=== PATIENT | male | born 1945 | race Caucasian/White ===

== ENCOUNTER → 2016-06-14 | Outpatient (CLI) | payer MEDICARE ==
[~2016-06-14] MED LIST: /CIPR75TA OR; /DULO30CA OR; ASPI1TAB PO; CLON0.5T; CLON0.5T OR; FISH1000 OR; GABA600T3; GABA600T3 OR; LYRI75CA PO; MULTIVIT PO; OXYC15TA50 OR; OXYC20TA2 OR; OXYC30TA84 PO; OXYC40TA12 PO; OXYC40TA19 OR; VIT D 2000 PO; VITA-130 PO; VITA100037 PO; VITA100T OR; VITA500T OR; vitamin E
--- NOTE | 2016-06-16 08:38 | REP ---
MRI BILATERAL ANKLE WITHOUT CONTRAST: History: Bilateral ankle pressure ulcers, ulcer laterally on the right and medially on the left. Comparison right ankle MRI study is from October 21, 2011. Technique: Bilateral ankle MRI study is acquired in the usual fashion with axial, coronal and sagittal imaging planes. T1, proton density and T2-weighted scans were obtained in the usual fashion with and without fat saturation. Right ankle MRI findings: There is mild increased signal intensity in the distal Achilles tendon. No other tendinopathy is appreciated. There is a focal skin deficit with underlying granulation tissue and edema over the lateral malleolus of the right ankle consistent with the history of skin ulcer. There is T2 hyperintense marrow edema and some subtle T1 hypointense marrow change in the distal fibula underlying the ulcer. I do not see cortical disruption or david erosion. It is difficult to exclude early osteomyelitis. The prior study from 2008 showed more prominent marrow edema and some bony hypertrophy. Cortical and medullary bone signal intensity is otherwise normal today. There is no soft tissue abscess collection visible. No ankle or intertarsal joint effusion is appreciated. Impression: Focal area of marrow edema in the distal fibula. No david cortical erosion seen. No abscess seen. There is a focal defect in the overlying skin and some soft tissue swelling and granulation tissue is seen overlying the distal fibula consistent with the ulcer. Difficult to exclude early osteomyelitis. Left ankle MRI findings: There is a skin defect over the medial malleolus on the left with underlying granulation tissue. No abscess cavity is appreciated. There is a tendon sheath effusion distal to the medial malleolus and the tibialis posterior tendon sheath. No tendon discontinuity is seen. There is diffuse edema in the subcutaneous fat particularly medially in the distal calf above the ankle. Some edema is seen in the pre-Achilles fat. There is a small ankle joint effusion. There is abnormal marrow signal of the medial malleolus including decreased T1 and increased T2 signal. No cortical disruption is seen. No abscess is seen. Some periosteal reaction is suspected however on T2-weighted axial scans. This is suggestive of early osteomyelitis of the medial malleolus. Exam is otherwise unremarkable. Impression: Abnormal marrow signal intensity in the medial malleolus underlying the ulcer on the left side. Periosteal reaction is seen. Early osteomyelitis is suspected. Signed by Zia Padilla MD 06/16/2016 01:34 P
== END ==
LOC: M RAD 14:20
PROVIDERS: ATTEND Surgery
DX: L89.523 Pressure ulcer of left ankle, stage 3 (principal); L89.513 Pressure ulcer of right ankle, stage 3

== ENCOUNTER → 2016-07-11 | Outpatient (REF) | payer MEDICARE, BC ==
[2016-07-11 15:38] LABS: BLOOD UREA NITROGEN 16 MG/DL (7-18); CREATININE FOR GFR 0.68 MG/DL (0.70-1.30); GLOMERULAR FILTRATION RATE > 60.0 (>42)
== END ==
LOC: M SHH 15:05
PROVIDERS: ATTEND Surgery
DX: L89.513 Pressure ulcer of right ankle, stage 3 (principal)

== ENCOUNTER → 2016-07-14 | Outpatient (CLI) | payer MEDICARE, BC ==
--- NOTE | 2016-07-24 02:24 | ECWPNPC ---
PATIENT NAME: KAI PAREKH : 1945 GENDER: MALE VISIT DATE: 07/14/2016 DISCHARGE DATE: 07/14/16 1456 VISIT LOCKED DATE TIME: PHYSICIAN: JARED MÉNDEZ RESOURCE: JARED MÉNDEZ REASON FOR APPOINTMENT 1. CHRONIC PAIN HISTORY OF PRESENT ILLNESS HISTORY OF PRESENT ILLNESS: CONTINUES W C/O RIGHT LEG PAIN AND PARATHESIA.ALSO SUFFERS FROM CHRONIC LOW BACK PAIN. FINDS CURRENT MEDICINE HELPFUL AT REDUCING PAIN AND PARATHESIA.DENIES SIDE EFFECTS W MEDICATION.PAIN AGGREVATED W INCREASED ACTIVITY.VAS 7/10. PAIN THE PATIENT DESCRIBES THE PAIN... THE PATIENT DESCRIBES THE PAIN... THE PATIENT DESCRIBES THE PAIN... THE PATIENT DESCRIBES THE PAIN... SEVERITY - PAIN SCORE OF9/10 QUALITYACHING , BURNING, SORE DURATIONMAINLY DURING THE DAY, INTERMITTENT, AWAKENS FROM SLEEEP THE PATIENT DESCRIBES THE PAIN... FALL RISK SCREENING: SCREENING :NO FALLS IN THE PAST YEAR CURRENT MEDICATIONS TAKING VITAMIN B-12 100 MCG TABLET 1 TABLET ORALLY ONCE A DAY TAKING FISH OIL 1000 MG CAPSULE 1 CAPSULE ORALLY ONCE A DAY TAKING MULTIVITAMINS CAPSULE 1 CAP ORALLY DAILY TAKING ADVANCE PLUS COUDE 16FR/40CM - KIT DIRECTED TRANSURETHRAL TID TAKING OXYCODONE HCL ER 30 MG TABLET EXTENDED RELEASE 12 HOUR 1 TABLET ORALLY 4-6 TIMES DAILY NEEDED TAKING LYRICA 150 MG CAPSULE 1 CAPSULE ORALLY TWICE A DAY MDD=2 TAKING OXYCODONE HCL 30 MG TABLET 1 TABLET ORALLY EVERY 4- 6 PRN MDD=4 TAKING CLONAZEPAM 0.5 MG TABLET 1 TABLET ORALLY TID MDD3 TAKING NEURONTIN 600 MG TABLET PAIN CLINIC ORALLY THREE TIMES A DAY TAKING OXYCONTIN 60 MG TABLET EXTENDED RELEASE 12 HOUR 1 TABLET ORALLY EVERY 12 HOURS/MMD#2 NOT-TAKING OXYCODONE HCL ER 60 MG TABLET ER 12 HOUR ABUSE-DETERRENT 1 TABLET ORALLY EVERY 12 HRS MDD=2 CHRONIC PAIN NOT-TAKING CUSTOM DO NOT USE OXYCODONE 30 MG TABLET 1 TABLET ORALLY/MMD#4 NEEDED EVERY 6 HOURS NOT-TAKING LYRICA 75 MG CAPSULE 1 CAPSULE ORALLY TWICE A DAY/MMD#2 NOT-TAKING BACTRIM DS 800-160 MG TABLET 1 TABLET ORALLY ONCE A DAY UNKNOWN OXYCODONE HCL ER 60 MG TABLET ER 12 HOUR ABUSE-DETERRENT 1 TABLET ORALLY EVERY 12 HRS MDD 2 UNKNOWN STRETCH GAUZE BANDAGE 1 MISCELLANEOUS 4 INCH X 75 INCH CURITY TOPICALLY DAILY MEDICATION LIST REVIEWED AND RECONCILED WITH THE PATIENT PAST MEDICAL HISTORY CHRONIC OSTEOMYELITIS OF DISTAL FIBULA HX OF PRESSURE ULCER RIGHT LATERAL MALLEOLUS CHRONIC BACK PAIN NEUROPATHIC CHARCOT FOOT HX MRSA RIGHT FOOT URINARY RETENTION FROM BACK SURGURY CHRONIC NEUROPATHY WITH WITH CHRONICLOWER EXTREMITY WEAKNESS BACK SURGERY X6 SPINAL CORD TUMOR ALLERGIES ZYVOX: CONFUSION: SIDE EFFECTS SOCIAL HISTORY GENERAL: TOBACCO USE ARE YOU A:NONSMOKER LEARNING BARRIERS / SPECIAL NEEDS ORIENTED TO PLAN OF CARE: PATIENT, PAIN MANAGEMENT PATIENT, ORIENTED TO PLAN OF CARE: PATIENT, PAIN MANAGEMENT PATIENT. NEW PATIENT PAIN DIARY TODAY'S VISITNOTES FROM 0-10, WHAT LEVEL IS YOUR PAIN TODAY?0 PAIN CLINIC PFS, CLERGY, PUBLIC HEALTH REFERRALS PFS REFERRAL NEEDED?NO CLERGY REFERRAL NEEDED?NO PUBLIC HEALTH REFERRAL NEEDED?NO WAS THE PROVIDER NOTIFIED OF ANY PERTINENT INFO?NO PFS REFERRAL NEEDED?NO CLERGY REFERRAL NEEDED?NO PUBLIC HEALTH REFERRAL NEEDED?NO WAS THE PROVIDER NOTIFIED OF ANY PERTINENT INFO?NO REVIEW OF SYSTEMS CONSTITUTIONAL: ANY CHANGE IN YOUR MEDICAL CONDITION? NO . CHILLS NO . FEVER NO . INFECTION: DO YOU HAVE NEW INFECTIONS? NO . DO YOU HAVE HISTORY OF MRSA? YES, RIGHT FOOT APPROX 4 YRS AGO . MUSCULOSKELETAL: ANY NEW PATTERNS OF PAIN OR NUMBNESS? NO . GASTROENTEROLOGY: ANY NEW CHANGE IN BOWEL CONTROL? NO . GENITOURINARY: ANY NEW CHANGE IN BLADDER CONTROL? NO,STRAIGHT CATHS HIMSELF . IS THERE A CHANCE YOU COULD BE ? NO . HEMATOLOGY/LYMPH: DO YOU TAKE ANY BLOOD THINNERS? (FOR EXAMPLE- COUMADIN, PLAVIX, AGGRENOX, PLATEL, PRADAXA, OR XARELTO) NO . WHEN WAS YOUR LAST DOSE? DATE: TIME: . NEUROLOGY: HAVE YOU FALLEN IN THE PAST 6 MONTHS? NO . ANY NEW EXTREMITY NUMBNESS OR WEAKNESS? NO . CARDIOLOGY: DO YOU HAVE A PACEMAKER OR DEFIBRILLATOR? NO . RESPIRATORY: HAVE YOU BEEN SICK IN THE PAST WEEK? NO . FEVER NO . FLU LIKE SYMPTOMS? NO . COUGH NO . INTEGUMENTARY: DO YOU HAVE ANY RASHES OR OPEN SORES? YES, SORES BOTH ANKLES--SEEING DR. GASPAR . ALLERGIC/IMMUNO: ARE YOU ALLERGIC TO SHELLFISH OR IV DYE? NO . ANY NEW ALLERGIES? NO . PSYCHIATRIC: DO YOU HAVE THOUGHTS OF HURTING YOURSELF OR SOMEONE ELSE? NO . ARE YOU ABUSED, NEGLECTED, OR IN AN UNSAFE ENVIRONMENT? NO . ENDOCRINOLOGY: ARE YOU DIABETIC? NO . OTHER: DO YOU NEED ANY PRESCRIPTIONS? NO . IF YES, PLEASE LIST: ____ . ANY NEW PROBLEMS WITH YOUR MEDICATIONS? NO . WHEN DID YOU LAST EAT? ____ . WHEN DID YOU LAST DRINK? ____ . WHAT DID YOU LAST DRINK? ____ . NAME OF PERSON DRIVING YOU HOME? ____ . DO YOU HAVE ANY OTHER QUESTIONS OR CONCERNS NO . REVIEWED BY: PROVIDER: JARED GARCIA . VITAL SIGNS WT 202 LBS, HT 74 IN, BMI 25.93 INDEX, BP 141/74 MM HG, HR 66 /MIN, RR 16 /MIN, TEMP 97.1 F, OXYGEN SAT % 97%, NA INITIALS SC14:22, REVIEWED BY: AD. EXAMINATION GENERAL EXAMINATION: LUNGS:LUNG SOUNDS ARE CLEAR. HEART:HEART RATE REGULAR. MUSCULOSKELETAL:*, MUSCLE STRENGTH TESTING 0/5 RIGHT LOWER EXT.3/5 LEFT . DECREASED SENSATION LIGHT TOUCH R>L LOWER EXT.. ASSESSMENTS POST LAMINECTOMY SYNDROME - M96.1 (PRIMARY) CHRONIC PRESCRIPTION OPIATE USE - Z79.891 TREATMENT POST LAMINECTOMY SYNDROME CONTINUE LYRICA CAPSULE, 150 MG, 1 CAPSULE, ORALLY, TWICE A DAY MDD=2 CONTINUE OXYCODONE HCL TABLET, 30 MG, 1 TABLET, ORALLY, EVERY 4- 6 PRN MDD=4 CONTINUE OXYCODONE HCL ER TABLET ER 12 HOUR ABUSE-DETERRENT, 60 MG, 1 TABLET, ORALLY, EVERY 12 HRS MDD=2 CHRONIC PAIN PROCEDURE CODES FA211 ESTABILISHED PATIENT [facility] CHARGE G8730 PAIN ASSESS POS TOOL F/U PLAN DOC G8427 DOC MEDS VERIFIED W/PT OR RE DISPOSITION & COMMUNICATION FOLLOW UP 3 MONTHS ELECTRONICALLY SIGNED BY RADHA CAIN ON 07/23/2016 AT 06:48 PM EST DISCLAIMER : THIS IS A VISIT SUMMARY EXTRACTED FROM THE [employer] CHART. IT IS NOT A COPY OF THE [employer] PROGRESS NOTE. MTDD
== END ==
LOC: M PAIN 14:00
PROVIDERS: ATTEND Nurse Practitioner Family
DX: Z09 Encounter for follow-up examination after completed treatment for conditions other than malignant neoplasm (principal); G89.29 Other chronic pain; M96.1 Postlaminectomy syndrome, not elsewhere classified; L89.513 Pressure ulcer of right ankle, stage 3; L89.523 Pressure ulcer of left ankle, stage 3; N31.9 Neuromuscular dysfunction of bladder, unspecified; Z88.1 Allergy status to other antibiotic agents; Z79.891 Long term (current) use of opiate analgesic; Z79.899 Other long term (current) drug therapy; Z86.14 Personal history of Methicillin resistant Staphylococcus aureus infection

== ENCOUNTER → 2016-07-16 | Outpatient (REF) | payer MEDICARE | LOC: M LAB REF 16:27 | PROVIDERS: ATTEND Surgery | DX: L89.513 Pressure ulcer of right ankle, stage 3 (principal) ==

== ENCOUNTER → 2016-07-16 | Outpatient (REF) | payer MEDICARE ==
[2016-07-16 13:50] LABS: BASO % 0.4 % (0.0-1.0); EOS # 0.1 K/mm3 (0.0-0.50); EOS % 2.6 % (0.0-3.0); LARGE UNSTAINED CELL # 0.1 K/mm3 (0.0-0.4); LARGE UNSTAINED CELL % 1.2 % (0.0-4.0); LYMPH # 1.4 K/mm3 (1.5-4.5); LYMPH % 25.4 % (24.0-44.0); MEAN CORPUSCULAR HEMOGLOBIN 31.7 pg (27.0-33.0); MEAN CORPUSCULAR HGB CONC 33.6 g/dl (32.0-36.5); MEAN CORPUSCULAR VOLUME 94.4 fl (80.0-96.0); MONO # 0.4 K/mm3 (0.0-0.8); MONO % 6.7 % (0.0-5.0); NEUTROPHILS # 3.4 K/mm3 (1.8-7.7); NEUTROPHILS % 63.8 % (36.0-66.0); PLATELET COUNT, AUTOMATED 275 k/mm3 (150-450); RED CELL DISTRIBUTION WIDTH 13.4 % (11.5-14.5); WHITE BLOOD COUNT 5.4 K/mm3 (4.0-10.0)
[2016-07-16 14:44] LABS: ERYTHROCYTE SEDIMENTATION RATE 33 mm/hr (0-20)
== END | disposition home or self-care (01) ==
LOC: M LAB REF 13:16
PROVIDERS: ATTEND Internal Medicine Infectious Disease
DX: L89.523 Pressure ulcer of left ankle, stage 3 (principal); M86.9 Osteomyelitis, unspecified; L89.513 Pressure ulcer of right ankle, stage 3

== ENCOUNTER → 2016-07-21 | Outpatient (CLI) | payer BC, MEDICARE ==
[~2016-07-21] MED LIST changes: +ISOVUE-370 76% 100ML VIAL (Q9967) As Ordered ONE
--- NOTE | 2016-07-22 09:11 | REP ---
Clinical: Stage II pressure ulcer at the right ankle. Technique: Axial contrast enhanced images from the lung bases through the bilateral lower extremities using angiographic technique with 100 ml Isovue 370 intravenous contrast material. Coronal and sagittal re-formations were obtained along with batch multiplanar reconstructions. Findings: Angiographic evaluation demonstrates gradual attenuation and essentially no arterial flow from the level of the right mid common femoral artery distally through the right foot. Remainder examination demonstrates normal arterial enhancement of the visualized descending thoracic aorta through the aortic bifurcation, bilateral common, internal and external iliac arteries as well as left lower extremity with three-vessel runoff to the level of the ankle/midfoot. Only minimal scattered calcified plaques are identified and only minimal associated narrowing is appreciated at the ostia of the celiac artery and superior mesenteric artery. The origins of the bilateral renal arteries appear relatively normal and patent. There is no evidence for aneurysm or dissection. Lung bases demonstrate dependent changes and atelectasis (right greater left) which may warrant chest CT evaluation as subtle right hilar adenopathy and soft tissue density cannot be excluded. Liver, spleen, pancreas, and bilateral adrenal glands are normal. Cholelithiasis suggested without CT evidence for acute cholecystitis. The kidneys demonstrate symmetric parenchymal enhancement along with 3 cm left renal cyst and sub centimeter right renal cyst. The enteric system is without obstruction or acute inflammatory process pelvis demonstrates normal bladder and moderately prominent prostate gland. 2.5 cm fat containing periumbilical hernia identified. No ascites. No free air. No intraperitoneal or retroperitoneal adenopathy. Skeletal structures demonstrate degenerative changes along with scoliosis and possibly post traumatic changes as well as interspinous cyst and pseudomeningocele at the lower thoracic/upper lumbar level with a presumed internal drainage catheter. There is an area of dermal thickening and subcutaneous infiltration as well as small ulceration overlying the distal right fibula / lateral malleolus (images [id number]). Impression: 1. Essentially no arterial flow through the right mid common femoral artery extending distally to the foot. The remainder of the angiographic evaluation is relatively normal as detailed above with only minimal small calcified plaquing scattered. No further areas of occlusion, stenosis, aneurysm or dissection. 2. Cannot exclude perihilar soft tissue at the lung bases for which chest CT with contrast may be warranted. 3. 3 cm left renal cyst and sub centimeter right renal cyst. 4. 2.5 cm fat containing periumbilical hernia. 5. Skeletal changes including spinal cyst and pseudomeningocele with internal drainage catheter. Signed by Thad Kenney MD 07/22/2016 09:02 A
== END ==
LOC: M RAD 16:36
PROVIDERS: ATTEND Surgery
DX: L89.513 Pressure ulcer of right ankle, stage 3 (principal); L89.523 Pressure ulcer of left ankle, stage 3
CPT/HCPCS: 75635; Q9967

== ENCOUNTER → 2016-08-25 | Outpatient (REF) | payer MEDICARE ==
[~2016-08-25] MED LIST changes: -ISOVUE-370 76% 100ML VIAL (Q9967) As Ordered ONE
[2016-08-25 16:10] LABS: BASO % 0.4 % (0.0-1.0); EOS # 0.1 K/mm3 (0.0-0.50); EOS % 3.1 % (0.0-3.0); LARGE UNSTAINED CELL # 0.1 K/mm3 (0.0-0.4); LARGE UNSTAINED CELL % 1.4 % (0.0-4.0); LYMPH % 23.8 % (24.0-44.0); MEAN CORPUSCULAR HEMOGLOBIN 31.6 pg (27.0-33.0); MEAN CORPUSCULAR VOLUME 95.8 fl (80.0-96.0); MONO # 0.2 K/mm3 (0.0-0.8); MONO % 5.5 % (0.0-5.0); NEUTROPHILS # 2.6 K/mm3 (1.8-7.7); NEUTROPHILS % 65.7 % (36.0-66.0); PLATELET COUNT, AUTOMATED 199 k/mm3 (150-450); RED CELL DISTRIBUTION WIDTH 13.3 % (11.5-14.5); WHITE BLOOD COUNT 3.9 K/mm3 (4.0-10.0)
[2016-08-25 20:41] LABS: ERYTHROCYTE SEDIMENTATION RATE 9 mm/hr (0-20)
== END ==
LOC: M SHH 15:30 → M LAB REF 15:30
PROVIDERS: ATTEND Internal Medicine Infectious Disease
DX: M86.9 Osteomyelitis, unspecified (principal)

== ENCOUNTER → 2016-09-26 | Outpatient (REF) | payer MEDICARE ==
[~2016-09-26] MED LIST changes: -OXYC40TA12 PO; +OXYC40TA13 PO
[2016-09-26 16:44] LABS: BASO % 0.3 % (0.0-1.0); EOS # 0.1 K/mm3 (0.0-0.50); LARGE UNSTAINED CELL # 0.1 K/mm3 (0.0-0.4); LARGE UNSTAINED CELL % 2.1 % (0.0-4.0); LYMPH # 1.1 K/mm3 (1.5-4.5); LYMPH % 23.4 % (24.0-44.0); MEAN CORPUSCULAR HEMOGLOBIN 31.3 pg (27.0-33.0); MEAN CORPUSCULAR HGB CONC 33.1 g/dl (32.0-36.5); MEAN CORPUSCULAR VOLUME 94.4 fl (80.0-96.0); MONO # 0.3 K/mm3 (0.0-0.8); MONO % 6.1 % (0.0-5.0); NEUTROPHILS # 3.1 K/mm3 (1.8-7.7); PLATELET COUNT, AUTOMATED 207 k/mm3 (150-450); RED CELL DISTRIBUTION WIDTH 13.6 % (11.5-14.5); WHITE BLOOD COUNT 4.7 K/mm3 (4.0-10.0)
[2016-09-26 18:13] LABS: ERYTHROCYTE SEDIMENTATION RATE 7 mm/hr (0-20)
== END ==
LOC: M SHH 15:29
PROVIDERS: ATTEND Internal Medicine Infectious Disease
DX: M86.9 Osteomyelitis, unspecified (principal)

== ENCOUNTER → 2016-10-06 | Outpatient (REF) | payer MEDICARE ==
[2016-10-06 18:58] LABS: BASO % 0.3 % (0.0-1.0); EOS # 0.1 K/mm3 (0.0-0.50); EOS % 1.9 % (0.0-3.0); LARGE UNSTAINED CELL # 0.1 K/mm3 (0.0-0.4); LARGE UNSTAINED CELL % 1.7 % (0.0-4.0); LYMPH # 1.3 K/mm3 (1.5-4.5); LYMPH % 23.5 % (24.0-44.0); MEAN CORPUSCULAR HEMOGLOBIN 31.2 pg (27.0-33.0); MEAN CORPUSCULAR HGB CONC 32.9 g/dl (32.0-36.5); MEAN CORPUSCULAR VOLUME 94.7 fl (80.0-96.0); MONO # 0.2 K/mm3 (0.0-0.8); MONO % 4.6 % (0.0-5.0); NEUTROPHILS # 3.5 K/mm3 (1.8-7.7); PLATELET COUNT, AUTOMATED 188 k/mm3 (150-450); RED CELL DISTRIBUTION WIDTH 13.7 % (11.5-14.5); WHITE BLOOD COUNT 5.1 K/mm3 (4.0-10.0)
[2016-10-06 19:29] LABS: ERYTHROCYTE SEDIMENTATION RATE 7 mm/hr (0-20)
== END ==
LOC: M SHH 16:20
PROVIDERS: ATTEND Internal Medicine Infectious Disease
DX: M86.9 Osteomyelitis, unspecified (principal)

== ENCOUNTER → 2016-10-09 | Outpatient (CLI) | payer MEDICARE ==
[2016-10-09 19:30] LABS: ANION GAP 5 MEQ/L (8-16); BLOOD UREA NITROGEN 16 MG/DL (7-18); CALCIUM LEVEL 8.6 MG/DL (8.8-10.2); CARBON DIOXIDE LEVEL 34 MEQ/L (21-32); CHLORIDE LEVEL 105 MEQ/L (98-107); CREATININE FOR GFR 0.71 MG/DL (0.70-1.30); GLOMERULAR FILTRATION RATE > 60.0 (>42); GLUCOSE, FASTING 78 MG/DL (83-110); POTASSIUM SERUM 4.5 MEQ/L (3.5-5.1); SODIUM LEVEL 144 MEQ/L (136-145)
== END ==
LOC: M LRY 10:59
PROVIDERS: ATTEND Surgery Vascular Surgery
DX: I70.244 Atherosclerosis of native arteries of left leg with ulceration of heel and midfoot (principal)

== ENCOUNTER → 2016-10-10 | Outpatient (CLI) | payer MEDICARE ==
--- NOTE | 2016-10-24 01:23 | ECWPNPC ---
PATIENT NAME: KAI PAREKH : 1945 GENDER: MALE VISIT DATE: 10/10/2016 DISCHARGE DATE: 10/10/16 1150 VISIT LOCKED DATE TIME: PHYSICIAN: JARED MÉNDEZ RESOURCE: JARED MÉNDEZ REASON FOR APPOINTMENT 1. CHRONIC PAIN HISTORY OF PRESENT ILLNESS HISTORY OF PRESENT ILLNESS: CONTINUES W C/O RIGHT LEG PAIN AND PARATHESIA.ALSO SUFFERS FROM CHRONIC LOW BACK PAIN. FINDS CURRENT MEDICINE HELPFUL AT REDUCING PAIN AND PARATHESIA.DENIES SIDE EFFECTS W MEDICATION.PAIN AGGREVATED W INCREASED ACTIVITY.VAS 7/10. PAIN THE PATIENT DESCRIBES THE PAIN... THE PATIENT DESCRIBES THE PAIN... THE PATIENT DESCRIBES THE PAIN... THE PATIENT DESCRIBES THE PAIN... THE PATIENT DESCRIBES THE PAIN... SEVERITY - PAIN SCORE OF9/10 QUALITYACHING , BURNING, SORE DURATIONMAINLY DURING THE DAY, INTERMITTENT, AWAKENS FROM SLEEEP THE PATIENT DESCRIBES THE PAIN... PAIN THE PATIENT DESCRIBES THE PAIN... THE PATIENT DESCRIBES THE PAIN... THE PATIENT DESCRIBES THE PAIN... THE PATIENT DESCRIBES THE PAIN... THE PATIENT DESCRIBES THE PAIN... SEVERITY - PAIN SCORE OF9/10 QUALITYACHING , BURNING, SORE DURATIONMAINLY DURING THE DAY, INTERMITTENT, AWAKENS FROM SLEEEP THE PATIENT DESCRIBES THE PAIN... FALL RISK SCREENING: SCREENING :NO FALLS IN THE PAST YEAR CURRENT MEDICATIONS TAKING VITAMIN B-12 100 MCG TABLET 1 TABLET ORALLY ONCE A DAY TAKING FISH OIL 1000 MG CAPSULE 1 CAPSULE ORALLY ONCE A DAY TAKING MULTIVITAMINS CAPSULE 1 CAP ORALLY DAILY TAKING ADVANCE PLUS COUDE 16FR/40CM - KIT DIRECTED TRANSURETHRAL TID TAKING OXYCODONE HCL ER 30 MG TABLET EXTENDED RELEASE 12 HOUR 1 TABLET ORALLY 4-6 TIMES DAILY NEEDED TAKING LYRICA 150 MG CAPSULE 1 CAPSULE ORALLY TWICE A DAY MDD=2 TAKING OXYCODONE HCL ER 60 MG TABLET ER 12 HOUR ABUSE-DETERRENT 1 TABLET ORALLY EVERY 12 HRS MDD=2 CHRONIC PAIN TAKING OXYCODONE HCL 30 MG TABLET 1 TABLET ORALLY EVERY 4- 6 PRN MDD=4 TAKING CLONAZEPAM 0.5 MG TABLET 1 TABLET ORALLY TID MDD3 TAKING OXYCONTIN 60 MG TABLET EXTENDED RELEASE 12 HOUR 1 TABLET ORALLY EVERY 12 HOURS/MMD#2 TAKING NEURONTIN 600 MG TABLET PAIN CLINIC ORALLY THREE TIMES A DAY NOT-TAKING LEVOFLOXACIN 750 MG TABLET 1 TABLET ORALLY ONCE A DAY NOT-TAKING AMOXICILLIN 875 MG TABLET 1 TABLET ORALLY EVERY 12 HRS NOT-TAKING CUSTOM DO NOT USE OXYCODONE 30 MG TABLET 1 TABLET ORALLY/MMD#4 NEEDED EVERY 6 HOURS NOT-TAKING LYRICA 75 MG CAPSULE 1 CAPSULE ORALLY TWICE A DAY/MMD#2 NOT-TAKING BACTRIM DS 800-160 MG TABLET 1 TABLET ORALLY ONCE A DAY NOT-TAKING OXYCODONE HCL ER 60 MG TABLET ER 12 HOUR ABUSE-DETERRENT 1 TABLET ORALLY EVERY 12 HRS MDD 2 NOT-TAKING STRETCH GAUZE BANDAGE 1 MISCELLANEOUS 4 INCH X 75 INCH CURITY TOPICALLY DAILY MEDICATION LIST REVIEWED AND RECONCILED WITH THE PATIENT PAST MEDICAL HISTORY CHRONIC OSTEOMYELITIS OF DISTAL FIBULA HX OF PRESSURE ULCER RIGHT LATERAL MALLEOLUS CHRONIC BACK PAIN NEUROPATHIC CHARCOT FOOT HX MRSA RIGHT FOOT URINARY RETENTION FROM BACK SURGURY CHRONIC NEUROPATHY WITH WITH CHRONICLOWER EXTREMITY WEAKNESS BACK SURGERY X6 SPINAL CORD TUMOR ALLERGIES ZYVOX: CONFUSION: SIDE EFFECTS SURGICAL HISTORY RESECTION OF LUMBER TUMOR 1979 MULTIPLE BACK SURGERIES [id number] HERNIA REPAIR LUMBAR FUSION/ THORACIC LAMINECTOMY CYST DRAINED ON LOWER BACK 12/06/14 HOSPITALIZATION/MAJOR DIAGNOSTIC PROCEDURE SURGERY RELATED REVIEW OF SYSTEMS CONSTITUTIONAL: ANY CHANGE IN YOUR MEDICAL CONDITION? YES. PT REPORTS WOUNDS IN BILAT HEELS, SEEING DR GASPAR. PT REPORTS HE HAS A BLOCKAGE IN A VEIN HE IS GOING TO HAVE DR CHAUDHARI INTERVENE 10/14/16. . CHILLS NO . FEVER NO . INFECTION: DO YOU HAVE NEW INFECTIONS? NO . DO YOU HAVE HISTORY OF MRSA? NO . MUSCULOSKELETAL: ANY NEW PATTERNS OF PAIN OR NUMBNESS? NO . GASTROENTEROLOGY: ANY NEW CHANGE IN BOWEL CONTROL? NO . GENITOURINARY: ANY NEW CHANGE IN BLADDER CONTROL? NO . IS THERE A CHANCE YOU COULD BE ? NO . HEMATOLOGY/LYMPH: DO YOU TAKE ANY BLOOD THINNERS? (FOR EXAMPLE- COUMADIN, PLAVIX, AGGRENOX, PLATEL, PRADAXA, OR XARELTO) NO . WHEN WAS YOUR LAST DOSE? DATE: TIME: . NEUROLOGY: HAVE YOU FALLEN IN THE PAST 6 MONTHS? NO . ANY NEW EXTREMITY NUMBNESS OR WEAKNESS? NO . CARDIOLOGY: DO YOU HAVE A PACEMAKER OR DEFIBRILLATOR? NO . RESPIRATORY: HAVE YOU BEEN SICK IN THE PAST WEEK? NO . FEVER NO . FLU LIKE SYMPTOMS? NO . COUGH NO . INTEGUMENTARY: DO YOU HAVE ANY RASHES OR OPEN SORES? NO . ALLERGIC/IMMUNO: ARE YOU ALLERGIC TO SHELLFISH OR IV DYE? NO . ANY NEW ALLERGIES? NO . PSYCHIATRIC: DO YOU HAVE THOUGHTS OF HURTING YOURSELF OR SOMEONE ELSE? NO . ARE YOU ABUSED, NEGLECTED, OR IN AN UNSAFE ENVIRONMENT? NO . ENDOCRINOLOGY: ARE YOU DIABETIC? NO . OTHER: DO YOU NEED ANY PRESCRIPTIONS? NO . IF YES, PLEASE LIST: ____ . ANY NEW PROBLEMS WITH YOUR MEDICATIONS? NO . WHEN DID YOU LAST EAT? ____ . WHEN DID YOU LAST DRINK? ____ . WHAT DID YOU LAST DRINK? ____ . NAME OF PERSON DRIVING YOU HOME? ____ . DO YOU HAVE ANY OTHER QUESTIONS OR CONCERNS NO . REVIEWED BY: PROVIDER: JARED GARCIA . VITAL SIGNS WT 200.0 LBS, HT 74 IN, BMI 25.68 INDEX, BP 135/60 MM HG, HR 64 /MIN, RR 16 /MIN, TEMP 97.9 F, OXYGEN SAT % 96%, SAFE IN ENV? (Y/N) Y, NA INITIALS TL 1112, REVIEWED BY: EM. EXAMINATION GENERAL EXAMINATION: LUNGS:LUNG SOUNDS ARE CLEAR. HEART:HEART RATE REGULAR. MUSCULOSKELETAL:*, MUSCLE STRENGTH TESTING 0/5 RIGHT LOWER EXT.3/5 LEFT . DECREASED SENSATION LIGHT TOUCH R>L LOWER EXT.. ASSESSMENTS POST LAMINECTOMY SYNDROME - M96.1 (PRIMARY) CHRONIC PRESCRIPTION OPIATE USE - Z79.891 TREATMENT POST LAMINECTOMY SYNDROME CONTINUE OXYCODONE HCL ER TABLET EXTENDED RELEASE 12 HOUR, 30 MG, 1 TABLET, ORALLY, 4-6 TIMES DAILY NEEDED CONTINUE LYRICA CAPSULE, 150 MG, 1 CAPSULE, ORALLY, TWICE A DAY MDD=2 CONTINUE OXYCODONE HCL ER TABLET ER 12 HOUR ABUSE-DETERRENT, 60 MG, 1 TABLET, ORALLY, EVERY 12 HRS MDD=2 CHRONIC PAIN CONTINUE NEURONTIN TABLET, 600 MG, PAIN CLINIC, ORALLY, THREE TIMES A DAY CONTINUE CLONAZEPAM TABLET, 0.5 MG, 1 TABLET, ORALLY, TID MDD3 PROCEDURE CODES FA211 ESTABILISHED PATIENT [facility] CHARGE G8730 PAIN ASSESS POS TOOL F/U PLAN DOC G8427 DOC MEDS VERIFIED W/PT OR RE DISPOSITION & COMMUNICATION FOLLOW UP 3 MONTHS ELECTRONICALLY SIGNED BY RADHA CAIN ON 10/23/2016 AT 01:34 PM EDT DISCLAIMER : THIS IS A VISIT SUMMARY EXTRACTED FROM THE [employer] CHART. IT IS NOT A COPY OF THE [employer] PROGRESS NOTE. RUDY
== END ==
LOC: M PAIN 11:00
PROVIDERS: ATTEND Nurse Practitioner Family
DX: M96.1 Postlaminectomy syndrome, not elsewhere classified (principal); M79.604 Pain in right leg; R20.2 Paresthesia of skin; G89.29 Other chronic pain; M54.5 Low back pain; Z88.1 Allergy status to other antibiotic agents; L89.513 Pressure ulcer of right ankle, stage 3; L89.523 Pressure ulcer of left ankle, stage 3; Z79.891 Long term (current) use of opiate analgesic; Z79.899 Other long term (current) drug therapy; Z86.14 Personal history of Methicillin resistant Staphylococcus aureus infection

== ENCOUNTER → 2016-10-14 | Outpatient (CLI) | payer MEDICARE ==
[~2016-10-14] MED LIST changes: +HEPARIN 1,000 UNITS/ML 10ML VIAL (FOR RADIOLOGY& DIALYSIS ONLY) As Ordered ONE; +ISOVUE-300 61% 50ML VIAL (Q9967) As Ordered ONE; +MIDAZOLAM INJ 2 MG/2 ML VIAL (J2250) As Ordered ONE; -OXYC40TA13 PO; +OXYC40TA29 PO; +PROTAMINE SULF INJ 50 MG/5 ML VIAL (J2720) As Ordered ONE; -VITA-130 PO; -VITA100037 PO; +VITA100067 PO; +VITA500T PO; +fentaNYL 100 MCG/2 ML INJECTION (J3010) As Ordered ONE
--- NOTE | 2016-10-30 18:54 | REP ---
IMAGES DURING ABDOMINAL AORTOGRAM AND RIGHT LOWER EXTREMITY ANGIOGRAM: CLINICAL HISTORY: Right lower extremity arterial insufficiency with ulcers. Multiple images are performed. A catheter is seen in abdominal aorta. Contrast is injected with arteries opacified throughout the right lower extremity. 2.8 minutes of fluoroscopic time utilized. Signed by Ezequiel Soriano MD 10/30/2016 07:18 P
--- NOTE | 2016-11-19 09:12 | RO ---
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 PROCEDURE: Aortogram, iliofemoral angiogram, selective right common femoral artery catheter placement with right lower extremity angiogram, Mynx closure of the left common femoral arteriotomy. SURGEON: Casey Davis MD SPECIAL EDUCATION ASSISTANT: MICH Pradhan and MICH Fraser ANESTHESIA: Local with sedation with 1.5 mg of Versed, 75 mcg of Fentanyl and 10 mL of 2% lidocaine. ESTIMATED BLOOD LOSS: FLUORO TIME: 2.8 minutes. CONTRAST: 22 mL of Isovue 300. Heparin 7000 units, protimine 50 mg. SEDATION TIME: Initiated at 7:50 a.m. and terminated at 8:50 a.m. with the cardiopulmonary monitoring and sedation administered by the nurse in the room, Anibal Smith RN, under my supervision. I was present for and directed the entire case. INDICATION: The patient is a 71-year-old male with lower extremity ulcerations at the ankle and both the right and left lower extremity. The patient underwent a CT angiogram which demonstrated occlusion with poor flow distal to the occlusion in the right lower extremity. The CT angiogram showed no significant aortoiliac occlusive disease and normal flow in the left lower extremity with three vessel runoff into the foot. Patient will now undergo a right lower extremity angiogram with possible angioplasty and/or stent. Risks, benefits and alternative treatment options were discussed with the patient. Alternative treatment options included but were not limited to no intervention with continued conservative management. Risks included, but were not limited to infection, bleeding, renal failure requiring hemodialysis, possible need for open surgical intervention, retroperitoneal hematoma, cerebrovascular accident, myocardial infarction, pulmonary embolus, deep vein thrombosis (DVT), loss of limb, loss of life, and poor outcome. The patient understands and accepts these risks and consents to proceed. DESCRIPTION OF PROCEDURE: The patient was taken to the angiography suite, placed on the angiography room stable. Then after prepping and draping in the standard surgical fashion and a time out being performed confirming the patient and procedure, the left common femoral artery was cannulated with a micropuncture needle after anesthetizing the overlying skin with 1% lidocaine. The micropuncture wire was advanced through the micropuncture needle which was upsized to a micropuncture sheath. A [employer] wire was advanced through the micropuncture sheath which was upsized to a #5-Indonesian sheath. An Omniflush catheter was placed in aorta and aortogram was performed. Catheter was pulled down to the level of the bifurcation of the iliac arteries and an iliofemoral angiogram was performed. Catheter was then directed over the bifurcation of the iliac arteries placed in the right common femoral artery and a right lower extremity angiogram was performed. The catheters and wires were then removed and a Mynx closure device was used to close the arteriotomy in the left common femoral artery with an additional 15 minutes of adjunctive pressure applied for hemostasis. Dressings were then applied. Patient tolerated the procedure well. All instrument, sponge and needle counts were correct at the end of the case. There were no complications. Dr. Davis was present for and directed the entire case. Patient was transferred to the holding area and subsequently discharged in stable condition. RADIOLOGIC SUPERVISION INTERPRETATION: The initial aortogram showed the descending thoracic aorta to be patent to the level of the celiac and superior mesenteric arteries which were widely patent. The renal arteries were patent bilaterally as well as the infrarenal aorta with good filling of lumbar vessels as well as intercostal vessels rising off of the thoracic aorta. The infrarenal aortogram showed good filling of the lumbar vessels as well as the right and left common iliac arteries being widely patent. The right and left internal and external iliac arteries were widely patent. The left side demonstrated the left common femoral artery to be widely patent as well as the proximal left superficial femoral and profunda femoris arteries. There was no visualization of the left lower extremity below the puncture site. The right common iliac artery, external iliac, internal iliac artery and common femoral artery were widely patent. The catheter was advanced up and over the bifurcation and placed in the right common femoral artery and a right lower extremity angiogram was performed. This showed the right common femoral, superficial femoral and profunda femoris arteries to be widely patent with no abnormalities noted. The entire length of the superficial femoral artery on the right was widely patent as well as the above and below knee popliteal artery with no disease noted that was significant. There was some mild luminal irregularity along the course of the distal superficial femoral and popliteal artery but no flow limitation was noted. Three vessel runoff was noted in the below knee region with anterior tibial, posterior tibial and peroneal vessels being patent into the ankle. A Mynx closure device was then used to close the arteriotomy in the left common femoral artery.
== END ==
LOC: M IRPRO 06:48
PROVIDERS: ATTEND Surgery Vascular Surgery
DX: I70.233 Atherosclerosis of native arteries of right leg with ulceration of ankle (principal); L97.329 Non-pressure chronic ulcer of left ankle with unspecified severity; L97.319 Non-pressure chronic ulcer of right ankle with unspecified severity
CPT/HCPCS: 36246; 75630; 75716; 99152; 99153; C1760; C1769; C1887; C1894; G0269; J2250; J2720; J3010; Q9967

== ENCOUNTER → 2017-01-01 | Outpatient (CLI) | payer MEDICARE ==
[~2017-01-01] MED LIST changes: -HEPARIN 1,000 UNITS/ML 10ML VIAL (FOR RADIOLOGY& DIALYSIS ONLY) As Ordered ONE; -ISOVUE-300 61% 50ML VIAL (Q9967) As Ordered ONE; -MIDAZOLAM INJ 2 MG/2 ML VIAL (J2250) As Ordered ONE; -PROTAMINE SULF INJ 50 MG/5 ML VIAL (J2720) As Ordered ONE; -fentaNYL 100 MCG/2 ML INJECTION (J3010) As Ordered ONE
--- NOTE | 2017-01-18 00:43 | ECWPNPC ---
PATIENT NAME: KAI PAREKH : 1945 GENDER: MALE VISIT DATE: 01/01/2017 DISCHARGE DATE: 01/01/17 1145 VISIT LOCKED DATE TIME: PHYSICIAN: JARED MÉNDEZ RESOURCE: JARED MÉNDEZ REASON FOR APPOINTMENT 1. 3 MO. F/UP HISTORY OF PRESENT ILLNESS HISTORY OF PRESENT ILLNESS: CONTINUES W C/O RIGHT LEG PAIN AND PARATHESIA.ALSO SUFFERS FROM CHRONIC LOW BACK PAIN. FINDS CURRENT MEDICINE HELPFUL AT REDUCING PAIN AND PARATHESIA.DENIES SIDE EFFECTS W MEDICATION.PAIN AGGREVATED W INCREASED ACTIVITY.VAS 7/10. PAIN THE PATIENT DESCRIBES THE PAIN... THE PATIENT DESCRIBES THE PAIN... THE PATIENT DESCRIBES THE PAIN... THE PATIENT DESCRIBES THE PAIN... THE PATIENT DESCRIBES THE PAIN... THE PATIENT DESCRIBES THE PAIN... SEVERITY - PAIN SCORE OF9/10 QUALITYACHING , BURNING, SORE DURATIONMAINLY DURING THE DAY, INTERMITTENT, AWAKENS FROM SLEEEP THE PATIENT DESCRIBES THE PAIN... PAIN THE PATIENT DESCRIBES THE PAIN... THE PATIENT DESCRIBES THE PAIN... THE PATIENT DESCRIBES THE PAIN... THE PATIENT DESCRIBES THE PAIN... THE PATIENT DESCRIBES THE PAIN... THE PATIENT DESCRIBES THE PAIN... SEVERITY - PAIN SCORE OF9/10 QUALITYACHING , BURNING, SORE DURATIONMAINLY DURING THE DAY, INTERMITTENT, AWAKENS FROM SLEEEP THE PATIENT DESCRIBES THE PAIN... PAIN THE PATIENT DESCRIBES THE PAIN... THE PATIENT DESCRIBES THE PAIN... THE PATIENT DESCRIBES THE PAIN... THE PATIENT DESCRIBES THE PAIN... THE PATIENT DESCRIBES THE PAIN... THE PATIENT DESCRIBES THE PAIN... SEVERITY - PAIN SCORE OF9/10 QUALITYACHING , BURNING, SORE DURATIONMAINLY DURING THE DAY, INTERMITTENT, AWAKENS FROM SLEEEP THE PATIENT DESCRIBES THE PAIN... FALL RISK SCREENING: SCREENING :NO FALLS IN THE PAST YEAR CURRENT MEDICATIONS TAKING VITAMIN B-12 100 MCG TABLET 1 TABLET ORALLY ONCE A DAY TAKING FISH OIL 1000 MG CAPSULE 1 CAPSULE ORALLY ONCE A DAY TAKING MULTIVITAMINS CAPSULE 1 CAP ORALLY DAILY TAKING ADVANCE PLUS COUDE 16FR/40CM - KIT DIRECTED TRANSURETHRAL TID TAKING OXYCODONE HCL 30 MG TABLET 1 TABLET ORALLY EVERY 4- 6 PRN MDD=4, NOTES: 12/31/16 AT 2200 TAKING NEURONTIN 600 MG TABLET PAIN CLINIC ORALLY THREE TIMES A DAY, NOTES: 12/31/16 AT 2200 TAKING BARD COUDE TIP CATHETER - MISCELLANEOUS DIRECTED 16 [place] 1 TAKING OXYCONTIN 60 MG TABLET EXTENDED RELEASE 12 HOUR 1 TABLET ORALLY EVERY 12 HOURS/MMD#2, NOTES: 12/31/16 AT 2200 TAKING LYRICA 150 MG CAPSULE 1 CAPSULE ORALLY TWICE A DAY MDD=2, NOTES: 12/31/16 AT 2200 TAKING CLONAZEPAM 0.5 MG TABLET 1 TABLET ORALLY TID MDD3, NOTES: 12/31/16 AT 2200 NOT-TAKING OXYCODONE HCL ER 60 MG TABLET ER 12 HOUR ABUSE-DETERRENT 1 TABLET ORALLY EVERY 12 HRS MDD=2 CHRONIC PAIN NOT-TAKING OXYCODONE HCL ER 30 MG TABLET EXTENDED RELEASE 12 HOUR 1 TABLET ORALLY 4-6 TIMES DAILY NEEDED NOT-TAKING LEVOFLOXACIN 750 MG TABLET 1 TABLET ORALLY ONCE A DAY NOT-TAKING AMOXICILLIN 875 MG TABLET 1 TABLET ORALLY EVERY 12 HRS NOT-TAKING CUSTOM DO NOT USE OXYCODONE 30 MG TABLET 1 TABLET ORALLY/MMD#4 NEEDED EVERY 6 HOURS NOT-TAKING LYRICA 75 MG CAPSULE 1 CAPSULE ORALLY TWICE A DAY/MMD#2 NOT-TAKING BACTRIM DS 800-160 MG TABLET 1 TABLET ORALLY ONCE A DAY NOT-TAKING OXYCODONE HCL ER 60 MG TABLET ER 12 HOUR ABUSE-DETERRENT 1 TABLET ORALLY EVERY 12 HRS MDD 2 NOT-TAKING STRETCH GAUZE BANDAGE 1 MISCELLANEOUS 4 INCH X 75 INCH CURITY TOPICALLY DAILY MEDICATION LIST REVIEWED AND RECONCILED WITH THE PATIENT PAST MEDICAL HISTORY CHRONIC OSTEOMYELITIS OF DISTAL FIBULA HX OF PRESSURE ULCER RIGHT LATERAL MALLEOLUS CHRONIC BACK PAIN NEUROPATHIC CHARCOT FOOT HX MRSA RIGHT FOOT URINARY RETENTION FROM BACK SURGURY CHRONIC NEUROPATHY WITH WITH CHRONICLOWER EXTREMITY WEAKNESS BACK SURGERY X6 SPINAL CORD TUMOR ALLERGIES ZYVOX: CONFUSION: SIDE EFFECTS SOCIAL HISTORY GENERAL: TOBACCO USE ARE YOU A:NONSMOKER ALCOHOL SCREENING DID YOU HAVE A DRINK CONTAINING ALCOHOL IN THE PAST YEAR?NO POINTS0 INTERPRETATIONNEGATIVE RECREATIONAL DRUG USE DRUG USE?NO PATIENT DENIES ABUSE OR MISSUSED OF ANY MEDICATION. PATIENT DENIES USE OF ANY ILLEGAL SUBSTANCE INCLUDING MARIJUANA OR COCAINE. CAFFEINE CAFFEINE USE?YES HOW OFTEN AND HOW MUCH? 1 SOFT DRINK HIV / HEP-C SCREENING HIV TEST OFFERED TO PATIENT:YES DATE OFFERED:07/16/2016 TEST ACCEPTED:NO HEP-C TEST OFFERED TO PATIENT:YES DATE OFFERED:07/16/2016 REASON:PATIENT DECLINED TEST ACCEPTED:NO REASON:PATIENT DECLINED OCCUPATION: DISABLED. [employer] NO [employer] BELIEFS THAT WOULD IMPACT HEALTH CARE. LANGUAGE [place] CITIZEN. LEARNING BARRIERS / SPECIAL NEEDS CHANGE FROM LAST VISIT?NO BARRIERS TO LEARNING?NO HEARING IMPAIRED?NO VISION IMPAIRED?YES COGNITIVELY IMPAIRED?NO :CORRECTIVE LENSES READINESS TO LEARN?YES LEARNING PREFERENCES?NO LEARNING CAPABILITIES PRESENT?YES EMOTIONAL BARRIERS?NO SPECIAL DEVICES?YES :WHEELCHAIR NEW PATIENT PAIN DIARY TODAY'S VISITNOTES FROM 0-10, WHAT LEVEL IS YOUR PAIN TODAY?0 PAIN CLINIC PFS, CLERGY, PUBLIC HEALTH REFERRALS PFS REFERRAL NEEDED?NO CLERGY REFERRAL NEEDED?NO PUBLIC HEALTH REFERRAL NEEDED?NO WAS THE PROVIDER NOTIFIED OF ANY PERTINENT INFO?NO HAS THE PATIENT BEEN EDUCATED REGARDING HIS/HER PLAN OF CARE?YES HAS THE PATIENT BEEN EDUCATED REGARDING PAIN, THE RISK FOR PAIN, THE IMPORTANCE OF EFFECTIVE PAIN MANAGEMENT, AND THE PAIN ASSESSMENT PROCESS?YES TRAVEL OUTSIDE US: DENIES. REVIEW OF SYSTEMS REVIEWED BY: PROVIDER: JARED GARCIA . CONSTITUTIONAL: ANY CHANGE IN YOUR MEDICAL CONDITION? NO . CHILLS NO . FEVER NO . INFECTION: DO YOU HAVE NEW INFECTIONS? NO . DO YOU HAVE HISTORY OF MRSA? NO . MUSCULOSKELETAL: ANY NEW PATTERNS OF PAIN OR NUMBNESS? NO . GASTROENTEROLOGY: ANY NEW CHANGE IN BOWEL CONTROL? NO . GENITOURINARY: ANY NEW CHANGE IN BLADDER CONTROL? NO . IS THERE A CHANCE YOU COULD BE ? NO . HEMATOLOGY/LYMPH: DO YOU TAKE ANY BLOOD THINNERS? (FOR EXAMPLE- COUMADIN, PLAVIX, AGGRENOX, PLATEL, PRADAXA, OR XARELTO) NO . WHEN WAS YOUR LAST DOSE? DATE: TIME: . NEUROLOGY: HAVE YOU FALLEN IN THE PAST 6 MONTHS? NO . ANY NEW EXTREMITY NUMBNESS OR WEAKNESS? NO . CARDIOLOGY: DO YOU HAVE A PACEMAKER OR DEFIBRILLATOR? NO . RESPIRATORY: HAVE YOU BEEN SICK IN THE PAST WEEK? NO . FEVER NO . FLU LIKE SYMPTOMS? NO . COUGH NO . INTEGUMENTARY: DO YOU HAVE ANY RASHES OR OPEN SORES? YES . ALLERGIC/IMMUNO: ARE YOU ALLERGIC TO SHELLFISH OR IV DYE? NO . ANY NEW ALLERGIES? NO . PSYCHIATRIC: DO YOU HAVE THOUGHTS OF HURTING YOURSELF OR SOMEONE ELSE? NO . ARE YOU ABUSED, NEGLECTED, OR IN AN UNSAFE ENVIRONMENT? NO . ENDOCRINOLOGY: ARE YOU DIABETIC? NO . OTHER: DO YOU NEED ANY PRESCRIPTIONS? YES . IF YES, PLEASE LIST: LYRICA AND OXYCONTIN . ANY NEW PROBLEMS WITH YOUR MEDICATIONS? NO . WHEN DID YOU LAST EAT? ____ . WHEN DID YOU LAST DRINK? ____ . WHAT DID YOU LAST DRINK? ____ . NAME OF PERSON DRIVING YOU HOME? ____ . DO YOU HAVE ANY OTHER QUESTIONS OR CONCERNS NO . VITAL SIGNS WT 200.0 LBS, HT 74 IN, BMI 25.68 INDEX, BP 129/65 MM HG, HR 60 /MIN, RR 18 /MIN, TEMP 98.4 F, OXYGEN SAT % 98, SAFE IN ENV? (Y/N) YES, NA INITIALS MP 1119, REVIEWED BY: SISSY. EXAMINATION GENERAL EXAMINATION: LUNGS:LUNG SOUNDS ARE CLEAR. HEART:HEART RATE REGULAR. MUSCULOSKELETAL:*, MUSCLE STRENGTH TESTING 0/5 RIGHT LOWER EXT.3/5 LEFT . DECREASED SENSATION LIGHT TOUCH R>L LOWER EXT.. ASSESSMENTS POST LAMINECTOMY SYNDROME - M96.1 (PRIMARY) CHRONIC PRESCRIPTION OPIATE USE - Z79.891 TREATMENT POST LAMINECTOMY SYNDROME REFILL OXYCODONE HCL TABLET, 30 MG, 1 TABLET, ORALLY, EVERY 4- 6 PRN MDD=4, 30 DAY(S), 120, REFILLS 0, NOTES: 12/31/16 AT 2200 REFILL LYRICA CAPSULE, 150 MG, 1 CAPSULE, ORALLY, TWICE A DAY MDD=2, 30 DAY(S), 60, REFILLS 2, NOTES: 12/31/16 AT 2200 NOTES: ISTOP REGISTRY REVIEWED AND DEMNOSTRATES COMPLLIANCE. BRINGS IN MEDICATIONS WHICH IS APPROPRIATE FOR WHAT WAS DISPENSED. RECENT URINE TOXICOLOGY REVIEWED. NO UNAUTHORIZED MEDICATIONS. NO ILLICIT SUBSTANCES AND PRESCRIBED MEDICATIONS WERE PRESENT. URINE TOX TODAY, RISKS AND BENEFITS OF NARCOTIC/OPIOD MEDICATIONS WERE REVIEWED WITH PATIENT - THIS INCLUDES BUT IS NOT LIMITED TO RISK OF DEPENDANCE/DEVELOPMENT OF ADDICTION, MOOD DISTURBANCE AND DEPRESSION, OSTEOPOROSIS, HORMONAL AND LABIDAL CHANGES, RESPIRATORY DEPRESSION AND . PATIENT IS ADVISED NOT TO DRIVE WHILE ON THESE MEDICATIONS. PROCEDURE CODES FA211 ESTABILISHED PATIENT [facility] CHARGE [id number] PAIN ASSESS POS TOOL F/U PLAN DOC G8427 DOC MEDS VERIFIED W/PT OR RE DISPOSITION & COMMUNICATION FOLLOW UP 3 MONTHS ELECTRONICALLY SIGNED BY RADHA CAIN ON 01/15/2017 AT 08:15 PM EDT DISCLAIMER : THIS IS A VISIT SUMMARY EXTRACTED FROM THE [employer] CHART. IT IS NOT A COPY OF THE [employer] PROGRESS NOTE. RUDY
== END ==
LOC: M PAIN 11:00
PROVIDERS: ATTEND Nurse Practitioner Family
DX: M96.1 Postlaminectomy syndrome, not elsewhere classified (principal); N31.9 Neuromuscular dysfunction of bladder, unspecified; L30.9 Dermatitis, unspecified; Z88.8 Allergy status to other drugs, medicaments and biological substances; Z88.1 Allergy status to other antibiotic agents; Z79.891 Long term (current) use of opiate analgesic; Z79.899 Other long term (current) drug therapy

== ENCOUNTER → 2017-02-18 | Outpatient (REF) | payer MEDICARE | LOC: M LAB REF 16:31 | PROVIDERS: ATTEND Surgery | DX: L89.523 Pressure ulcer of left ankle, stage 3 (principal) ==

== ENCOUNTER → 2017-02-25 | Outpatient (REF) | payer MEDICARE ==
[2017-02-26 14:06] LABS: BLOOD UREA NITROGEN 18 MG/DL (7-18); CREATININE FOR GFR 0.81 MG/DL (0.70-1.30); GLOMERULAR FILTRATION RATE > 60.0 (>42)
== END ==
LOC: M LAB REF 13:00
PROVIDERS: ATTEND Surgery
DX: L89.523 Pressure ulcer of left ankle, stage 3 (principal)

== ENCOUNTER → 2017-03-05 | Outpatient (CLI) | payer MEDICARE ==
[~2017-03-05] MED LIST changes: +PROHANCE 279.3MG/ML 15ML VIAL (A9576) As Ordered ONE
--- NOTE | 2017-03-05 16:45 | REP ---
MRI left ankle without with IV gadolinium: History: Stage 3 pressure ulcer left ankle. Question osteomyelitis. Comparison MRI study June 14, 2016. MRI contrast dose: 15 ml of intravenous ProHance. Technique: Axial, coronal and sagittal imaging planes utilized. T1 and T2-weighted scans were obtained with and without fat saturation. Pre and post gadolinium enhanced images are included. MRI findings: The skin ulcer over the medial malleolus persists with underlying soft tissue edema and swelling. This is similar to the findings on the left ankle MRI done June 14, 2016. However, the previously noted marrow edema in the underlying medial malleolus is virtually resolved. No abnormal gadolinium enhancement is seen. There is no evidence to suggest osteomyelitis currently in the medial malleolus. Cortical and medullary bone signal intensity are normal elsewhere in the hindfoot and distal TIB-fib bones. No soft tissue abscess is seen. Impression: A skin ulcer overlies the medial malleolus. Underlying distal tibial and distal fibular as well as hind foot bone signal intensity is normal. There is no current MR evidence to suggest osteomyelitis. Signed by Zia Padilla MD 03/05/2017 05:24 P
== END ==
LOC: M RAD 14:11
PROVIDERS: ATTEND Surgery
DX: L89.523 Pressure ulcer of left ankle, stage 3 (principal)
CPT/HCPCS: 73723; A9576

== ENCOUNTER → 2017-04-02 | Outpatient (CLI) | payer MEDICARE ==
[~2017-04-02] MED LIST changes: -PROHANCE 279.3MG/ML 15ML VIAL (A9576) As Ordered ONE
== END ==
LOC: M PAIN 11:30
PROVIDERS: ATTEND Nurse Practitioner Family
DX: M96.1 Postlaminectomy syndrome, not elsewhere classified (principal); R33.9 Retention of urine, unspecified; Z88.8 Allergy status to other drugs, medicaments and biological substances; Z79.891 Long term (current) use of opiate analgesic; Z79.899 Other long term (current) drug therapy; Z87.891 Personal history of nicotine dependence

== ENCOUNTER → 2017-05-01 | Outpatient (CLI) | payer MEDICARE ==
--- NOTE | 2017-05-01 13:13 | REP ---
Clinical: Pain and physical evidence for venous insufficiency . Technique: Soriano scale and color Doppler evaluation using linear high frequency transducer with reflux evaluation. Findings: Ultrasound examination of the left lower extremity deep venous structures from the common femoral vein to the popliteal vein demonstrates normal compressibility flow and wave patterns in response to respiration and augmentation. There is no evidence for deep venous thrombosis. Reflux portion of examination demonstrates reflux through the deep venous system including the common femoral vein, superficial femoral vein and popliteal vein. Reflux is also identified through the greater saphenous vein. Specifically, the proximal greater saphenous vein at the saphenofemoral junction measures 7 mm diameter with reflux duration of 6.5 seconds; the mid saphenous vein measures 3.9 mm diameter with reflux duration of 7.5 seconds; distal saphenous vein measures 3.9 mm diameter with reflux duration of 8.9 seconds. No reflux noted through the lesser saphenous vein which measures 3.8 mm diameter. Anterior accessory greater saphenous vein not identified. Impression: 1. No evidence for deep venous thrombosis. 2. Reflux through the deep and superficial system as detailed above. Signed by Thad Kenney MD 05/01/2017 01:05 P
== END ==
LOC: M RAD 12:18
PROVIDERS: ATTEND Surgery
DX: L89.523 Pressure ulcer of left ankle, stage 3 (principal)

== ENCOUNTER → 2017-05-21 | Outpatient (CLI) | payer MEDICARE ==
[2017-05-21 16:57] LABS: ANION GAP 4 MEQ/L (8-16); BLOOD UREA NITROGEN 17 MG/DL (7-18); CALCIUM LEVEL 8.5 MG/DL (8.8-10.2); CARBON DIOXIDE LEVEL 35 MEQ/L (21-32); CHLORIDE LEVEL 108 MEQ/L (98-107); CREATININE FOR GFR 0.67 MG/DL (0.70-1.30); GLOMERULAR FILTRATION RATE > 60.0 (>42); GLUCOSE, FASTING 65 MG/DL (83-110); POTASSIUM SERUM 4.3 MEQ/L (3.5-5.1); SODIUM LEVEL 147 MEQ/L (136-145)
[2017-05-21 17:34] LABS: BASO % 0.7 % (0.0-1.0); EOS # 0.1 10^3/uL (0.0-0.50); EOS % 3.2 % (0.0-3.0); IMMATURE GRANULOCYTE % 0.2 % (0-0); LYMPH # 1.3 10^3/uL (1.5-4.5); LYMPH % 30.6 % (24.0-44.0); MEAN CORPUSCULAR HEMOGLOBIN 30.5 pg (27.0-33.0); MEAN CORPUSCULAR HGB CONC 32.6 g/dl (32.0-36.5); MEAN CORPUSCULAR VOLUME 93.4 fl (80.0-96.0); MONO # 0.3 10^3/uL (0.0-0.8); MONO % 6.7 % (0.0-5.0); NEUTROPHILS # 2.5 10^3/uL (1.8-7.7); NEUTROPHILS % 58.6 % (36.0-66.0); PLATELET COUNT, AUTOMATED 200 10^3/uL (150-450); WHITE BLOOD COUNT 4.3 10^3/uL (4.0-10.0)
== END ==
LOC: M LRY 11:53
PROVIDERS: ATTEND Surgery Vascular Surgery
DX: I83.222 Varicose veins of left lower extremity with both ulcer of calf and inflammation (principal)

== ENCOUNTER → 2017-06-15 | Outpatient (CLI) | payer MEDICARE | LOC: M EKG 09:31 | DX: Z01.818 Encounter for other preprocedural examination (principal); D32.1 Benign neoplasm of spinal meninges; R94.31 Abnormal electrocardiogram [ECG] [EKG] | CPT/HCPCS: 93005 ==

== ENCOUNTER 2017-06-16 08:12 | Day surgery (SDC) | payer MEDICARE ==
[2017-06-16] MEDS: LR 1,000 ML IV (08:45)
[2017-06-16] MEDS ORDERED: MIDAZOLAM INJ 2 MG/2 ML VIAL (J2250) As Ordered (10:06)
[2017-06-16] MEDS ORDERED: fentaNYL 100 MCG/2 ML INJECTION (J3010) As Ordered (10:06)
[2017-06-16] MEDS ORDERED: PROPOFOL 200 MG/20 ML VIAL As Ordered ×2 (10:06→11:09)
[2017-06-16] MEDS ORDERED: PHENYLEPHRINE INJ 10MG/ML VIAL (J2370) As Ordered (10:47)
[2017-06-16] MEDS: LIDOCAINE W/EPINEPHRINE 1% 20ML VIAL As Ordered (11:05)
== END 2017-06-16 12:25 | disposition home or self-care (01) ==
LOC: M SDC 08:12
DX: I87.2 Venous insufficiency (chronic) (peripheral) (principal); I83.223 Varicose veins of left lower extremity with both ulcer of ankle and inflammation; R60.0 Localized edema; D32.1 Benign neoplasm of spinal meninges; R29.898 Other symptoms and signs involving the musculoskeletal system; M54.2 Cervicalgia; G62.9 Polyneuropathy, unspecified; Z88.8 Allergy status to other drugs, medicaments and biological substances; Z79.899 Other long term (current) drug therapy; Z86.73 Personal history of transient ischemic attack (TIA), and cerebral infarction without residual deficits; Z92.3 Personal history of irradiation; Z72.0 Tobacco use; Z98.1 Arthrodesis status
CPT/HCPCS: 36475

== ENCOUNTER → 2017-06-25 | Outpatient (CLI) | payer MEDICARE | LOC: M RAD 09:51 | DX: I70.248 Atherosclerosis of native arteries of left leg with ulceration of other part of lower leg (principal); I82.812 Embolism and thrombosis of superficial veins of left lower extremity | CPT/HCPCS: 93971 ==

== ENCOUNTER → 2017-07-03 | Outpatient (CLI) | payer MEDICARE | LOC: M PAIN 11:30 | DX: G89.29 Other chronic pain (principal); M54.5 Low back pain; M96.1 Postlaminectomy syndrome, not elsewhere classified; M14.679 Charcot's joint, unspecified ankle and foot; Z79.891 Long term (current) use of opiate analgesic; Z79.899 Other long term (current) drug therapy; Z88.8 Allergy status to other drugs, medicaments and biological substances; Z87.39 Personal history of other diseases of the musculoskeletal system and connective tissue; Z87.891 Personal history of nicotine dependence | CPT/HCPCS: G0463 ==

== ENCOUNTER → 2017-08-21 | Outpatient (CLI) | payer MEDICARE | LOC: M RAD 12:51 | DX: L89.523 Pressure ulcer of left ankle, stage 3 (principal) | CPT/HCPCS: 93923 ==

== ENCOUNTER → 2017-09-30 | Outpatient (CLI) | payer MEDICARE | LOC: M PAIN 11:00 | DX: M96.1 Postlaminectomy syndrome, not elsewhere classified (principal); Z79.891 Long term (current) use of opiate analgesic; Z79.899 Other long term (current) drug therapy; Z88.8 Allergy status to other drugs, medicaments and biological substances; Z87.891 Personal history of nicotine dependence | CPT/HCPCS: G0463 ==

== ENCOUNTER 2017-12-21 10:11 | Inpatient (IN) | payer MEDICARE ==
[2017-12-21 11:01] LABS: BASO % 0.1 % (0.0-1.0); HEMATOCRIT 45.6 % (42.0-52.0); IMMATURE GRANULOCYTE % 0.5 % (0-3.0); LYMPH # 1.2 10^3/uL (1.5-4.5); LYMPH % 8.7 % (24.0-44.0); MEAN CORPUSCULAR HEMOGLOBIN 30.8 pg (27.0-33.0); MEAN CORPUSCULAR HGB CONC 35.1 g/dl (32.0-36.5); MEAN CORPUSCULAR VOLUME 87.9 fl (80.0-96.0); MONO # 0.8 10^3/uL (0.0-0.8); NEUTROPHILS # 11.3 10^3/uL (1.8-7.7); NEUTROPHILS % 84.7 % (36.0-66.0); PLATELET COUNT, AUTOMATED 222 10^3/uL (150-450); RED BLOOD COUNT 5.19 10^6/uL (4.30-6.10); RED CELL DISTRIBUTION WIDTH 13.5 % (11.5-14.5); WHITE BLOOD COUNT 13.3 10^3/uL (4.0-10.0)
[2017-12-21] MEDS: NS 1,000 ML IV ×2 (11:10→14:17)
[2017-12-21 11:25] LABS: ALBUMIN 3.9 GM/DL (3.2-5.2); ALBUMIN/GLOBULIN RATIO 0.98 (1.00-1.93); ALKALINE PHOSPHATASE 103 U/L (45-117); ALT/SGPT 37 U/L (12-78); AMYLASE 42 U/L (25-115); ANION GAP 13 MEQ/L (8-16); AST/SGOT 36 U/L (7-37); BILIRUBIN,DIRECT 0.4 MG/DL (0.0-0.2); BILIRUBIN,TOTAL 1.2 MG/DL (0.2-1.0); BLOOD UREA NITROGEN 23 MG/DL (7-18); CALCIUM LEVEL 9.1 MG/DL (8.8-10.2); CARBON DIOXIDE LEVEL 27 MEQ/L (21-32); CHLORIDE LEVEL 102 MEQ/L (98-107); CPK CREATINE PHOSPHOKINASE 409 U/L (39-308); CREATININE FOR GFR 0.81 MG/DL (0.70-1.30); GLOMERULAR FILTRATION RATE > 60.0 (>42); GLUCOSE, FASTING 88 MG/DL (70-100); LIPASE 254 U/L (73-393); SODIUM LEVEL 142 MEQ/L (136-145); TOTAL PROTEIN 7.9 GM/DL (6.4-8.2); TROPONIN I 0.03 NG/ML (< 0.10)
[2017-12-21 11:26] LABS: MB/CK RELATIVE INDEX 0.73 (< OR =4)
[2017-12-21 11:31] LABS: AMORPHOUS SEDIMENT RFX SMALL (NEGATIVE); KETONE, URINE AUTO RFX 2+ mg/dL (NEGATIVE); LEUKOCYTE ESTERASE UR AUTO RFX 3+ (NEGATIVE); MUCUS, URINE RFX MODERATE (NEGATIVE); NITRITE, URINE AUTO RFX NEGATIVE (NEGATIVE); RBC, URINE AUTO RFX 17 /HPF (0-3); SPECIFIC GRAVITY UR AUTO RFX 1.028 (1.002-1.035); SQUAM EPITHELIAL CELL UR AURFX 0 /HPF (0-6); WBC, URINE AUTO RFX 124 /HPF (0-3)
[2017-12-21 11:32] LABS: POTASSIUM SERUM 2.9 MEQ/L (3.5-5.1)
[2017-12-21] MEDS: ONDANSETRON 4MG/2ML VIAL (J2405) IV ×3 (11:50→20:09)
[2017-12-21] MEDS: POTASSIUM CHLORIDE 10 MEQ SR TABLET PO ×3 (11:51→23:31)
[2017-12-21] MEDS: KCL 10MEQ/100ML SWI (KRUN) 10 MEQ in APPROPRIATE DILUENT 1 EA IV ×2 (11:51→22:53)
[2017-12-21 11:53] LABS: LACTIC ACID SEPSIS PROTOCOL 1.5 MMOL/L (0.4-2.0)
[2017-12-21 12:24] LABS: MAGNESIUM LEVEL 2.2 MG/DL (1.8-2.4)
[2017-12-21] MEDS ORDERED: ISOVUE-370 76% 100ML VIAL (Q9967) As Ordered (13:02)
[2017-12-21] MEDS ORDERED: GABAPENTIN 300 MG CAP PO (16:00)
[2017-12-21 16:28] LABS: THYROID STIMULATING HORMONE 0.232 uIU/ML (0.358-3.740)
[2017-12-21 16:28] LABS: POTASSIUM SERUM 2.9 MEQ/L (3.5-5.1)
[2017-12-21] MEDS: ACETAMINOPHEN TAB 650MG DOSE (2X325MG) PO ×2 (16:44→22:53)
[2017-12-21] MEDS: MULTIVITAMINS/MINERALS THERAP 1 TAB PO (18:26)
[2017-12-21] MEDS ORDERED: PREGABALIN 75 MG CAP(LYRICA) PO (21:00)
[2017-12-22] MEDS: KCL 20MEQ in NS 1000ML 1,000 ML IV (00:14)
[2017-12-22] MEDS: KCL 10MEQ/100ML SWI (KRUN) 10 MEQ in APPROPRIATE DILUENT 1 EA IV (00:14)
[2017-12-22] MEDS: ACETAMINOPHEN TAB 650MG DOSE (2X325MG) PO ×3 (02:47→22:05)
[2017-12-22] MEDS: ONDANSETRON 4MG/2ML VIAL (J2405) IV ×3 (02:49→21:18)
[2017-12-22 05:36] LABS: HEMATOCRIT 38.8 % (42.0-52.0); MEAN CORPUSCULAR HEMOGLOBIN 31.1 pg (27.0-33.0); MEAN CORPUSCULAR HGB CONC 35.1 g/dl (32.0-36.5); MEAN CORPUSCULAR VOLUME 88.6 fl (80.0-96.0); PLATELET COUNT, AUTOMATED 197 10^3/uL (150-450); RED BLOOD COUNT 4.38 10^6/uL (4.30-6.10); RED CELL DISTRIBUTION WIDTH 13.7 % (11.5-14.5)
[2017-12-22 05:41] LABS: HEMOGLOBIN 13.6 g/dl (13.5-17.5)
[2017-12-22 05:51] LABS: ANION GAP 6 MEQ/L (8-16); BLOOD UREA NITROGEN 22 MG/DL (7-18); CARBON DIOXIDE LEVEL 27 MEQ/L (21-32); CHLORIDE LEVEL 110 MEQ/L (98-107); CREATININE FOR GFR 0.66 MG/DL (0.70-1.30); GLOMERULAR FILTRATION RATE > 60.0 (>42); GLUCOSE, FASTING 81 MG/DL (70-100); PHOSPHORUS LEVEL 2.4 MG/DL (2.5-4.9); SODIUM LEVEL 143 MEQ/L (136-145)
[2017-12-22 06:00] LABS: CALCIUM LEVEL 8.3 MG/DL (8.8-10.2)
[2017-12-22 06:11] LABS: ALBUMIN 2.8 GM/DL (3.2-5.2)
[2017-12-22 06:54] LABS: ESTIMATED AVERAGE GLUCOSE 111 MG/DL (60-110); HEMOGLOBIN A1c 5.5 %
[2017-12-22 06:55] LABS: FREE THYROXINE INDEX 3.9 % (1.4-3.8); MAGNESIUM LEVEL 1.9 MG/DL (1.8-2.4); T UPTAKE 38 % (33-40); THYROID STIMULATING HORMONE 0.305 uIU/ML (0.358-3.740); THYROXINE (T4) 10.3 UG/DL (4.5-12.0)
[2017-12-22] MEDS: K-PHOS NEUTRAL 250MG TABLET (SOD.PHOSPHATE/POT.PHOSPHATE) PO ×3 (10:00→21:00)
[2017-12-22] MEDS: MULTIVITAMINS/MINERALS THERAP 1 TAB PO (10:00)
[2017-12-22] MEDS: ENOXAPARIN 40 MG/0.4 ML SYRINGE (J1650) SC (10:01)
[2017-12-22] MEDS: PIPERACILLIN/TAZOBACTAM SOD 3.375 GM in D5W MINI-BAG PLUS 50 ML IV ×2 (10:01→16:28)
[2017-12-22] MEDS: NS 1,000 ML IV ×2 (10:02→21:50)
[2017-12-22] MEDS: PANTOPRAZOLE 40MG INJ (PROTONIX) (C9113) IV (12:29)
[2017-12-22] MEDS: MAG SULF 1GM/100ML (MAG RUN) 1 GM in APPROPRIATE DILUENT 1 EA IV (12:30)
[2017-12-22] MEDS: LORazepam 2 MG/ML VIAL (J2060) IV (12:30)
[2017-12-22 14:32] LABS: ANION GAP 7 MEQ/L (8-16); BLOOD UREA NITROGEN 21 MG/DL (7-18); CALCIUM LEVEL 7.8 MG/DL (8.8-10.2); CARBON DIOXIDE LEVEL 28 MEQ/L (21-32); CHLORIDE LEVEL 110 MEQ/L (98-107); CREATININE FOR GFR 0.69 MG/DL (0.70-1.30); GLOMERULAR FILTRATION RATE > 60.0 (>42); GLUCOSE, FASTING 97 MG/DL (70-100); POTASSIUM SERUM 3.9 MEQ/L (3.5-5.1); SODIUM LEVEL 145 MEQ/L (136-145)
[2017-12-23] MEDS: LORazepam 2 MG/ML VIAL (J2060) IV ×3 (00:26→23:36)
[2017-12-23] MEDS: PIPERACILLIN/TAZOBACTAM SOD 3.375 GM in D5W MINI-BAG PLUS 50 ML IV (00:26)
[2017-12-23] MEDS: VANCOMYCIN ORAL SOL 250MG/5ML ORAL SYRINGE PO ×5 (01:36→23:36)
[2017-12-23] MEDS: ACETAMINOPHEN TAB 650MG DOSE (2X325MG) PO (04:19)
[2017-12-23 05:53] LABS: HEMATOCRIT 41.7 % (42.0-52.0); HEMOGLOBIN 14.2 g/dl (13.5-17.5); MEAN CORPUSCULAR HEMOGLOBIN 30.7 pg (27.0-33.0); MEAN CORPUSCULAR HGB CONC 34.1 g/dl (32.0-36.5); MEAN CORPUSCULAR VOLUME 90.1 fl (80.0-96.0); PLATELET COUNT, AUTOMATED 196 10^3/uL (150-450); RED BLOOD COUNT 4.63 10^6/uL (4.30-6.10); RED CELL DISTRIBUTION WIDTH 13.5 % (11.5-14.5); WHITE BLOOD COUNT 9.1 10^3/uL (4.0-10.0)
[2017-12-23 06:20] LABS: ALBUMIN 2.8 GM/DL (3.2-5.2); ANION GAP 8 MEQ/L (8-16); BLOOD UREA NITROGEN 18 MG/DL (7-18); CALCIUM LEVEL 7.6 MG/DL (8.8-10.2); CARBON DIOXIDE LEVEL 27 MEQ/L (21-32); CHLORIDE LEVEL 110 MEQ/L (98-107); CREATININE FOR GFR 0.71 MG/DL (0.70-1.30); GLOMERULAR FILTRATION RATE > 60.0 (>42); GLUCOSE, FASTING 81 MG/DL (70-100); PHOSPHORUS LEVEL 2.7 MG/DL (2.5-4.9); POTASSIUM SERUM 3.5 MEQ/L (3.5-5.1); SODIUM LEVEL 145 MEQ/L (136-145)
[2017-12-23] MEDS: PANTOPRAZOLE 40MG INJ (PROTONIX) (C9113) IV (09:00)
[2017-12-23] MEDS: K-PHOS NEUTRAL 250MG TABLET (SOD.PHOSPHATE/POT.PHOSPHATE) PO ×3 (09:38→20:24)
[2017-12-23] MEDS: GABAPENTIN 300 MG CAP PO ×3 (09:39→20:26)
[2017-12-23] MEDS: oxyCODONE 20 MG CR TAB PO ×2 (09:40→20:26)
[2017-12-23] MEDS: ENOXAPARIN 40 MG/0.4 ML SYRINGE (J1650) SC (09:40)
[2017-12-23] MEDS: MULTIVITAMINS/MINERALS THERAP 1 TAB PO (09:40)
[2017-12-23] MEDS: PREGABALIN 75 MG CAP(LYRICA) PO ×2 (09:40→20:25)
[2017-12-23] MEDS: NS 1,000 ML IV (20:24)
[2017-12-24] MEDS: VANCOMYCIN ORAL SOL 250MG/5ML ORAL SYRINGE PO ×4 (05:16→23:00)
[2017-12-24 06:01] LABS: HEMATOCRIT 39.2 % (42.0-52.0); MEAN CORPUSCULAR HEMOGLOBIN 30.2 pg (27.0-33.0); MEAN CORPUSCULAR HGB CONC 33.2 g/dl (32.0-36.5); MEAN CORPUSCULAR VOLUME 91.2 fl (80.0-96.0); PLATELET COUNT, AUTOMATED 195 10^3/uL (150-450); RED CELL DISTRIBUTION WIDTH 13.4 % (11.5-14.5); WHITE BLOOD COUNT 8.9 10^3/uL (4.0-10.0)
[2017-12-24 06:16] LABS: ALBUMIN 2.5 GM/DL (3.2-5.2); ANION GAP 8 MEQ/L (8-16); BLOOD UREA NITROGEN 16 MG/DL (7-18); CALCIUM LEVEL 7.4 MG/DL (8.8-10.2); CARBON DIOXIDE LEVEL 27 MEQ/L (21-32); CHLORIDE LEVEL 109 MEQ/L (98-107); CREATININE FOR GFR 0.61 MG/DL (0.70-1.30); GLOMERULAR FILTRATION RATE > 60.0 (>42); GLUCOSE, FASTING 64 MG/DL (70-100); POTASSIUM SERUM 3.2 MEQ/L (3.5-5.1); SODIUM LEVEL 144 MEQ/L (136-145)
[2017-12-24 07:27] LABS: MAGNESIUM LEVEL 2.1 MG/DL (1.8-2.4)
[2017-12-24] MEDS: oxyCODONE 20 MG CR TAB PO ×2 (09:00→20:52)
[2017-12-24] MEDS: GABAPENTIN 300 MG CAP PO ×3 (09:00→20:52)
[2017-12-24] MEDS: MULTIVITAMINS/MINERALS THERAP 1 TAB PO (09:01)
[2017-12-24] MEDS: PREGABALIN 75 MG CAP(LYRICA) PO ×2 (09:01→20:53)
[2017-12-24] MEDS: PANTOPRAZOLE 40MG INJ (PROTONIX) (C9113) IV (09:01)
[2017-12-24] MEDS: K-PHOS NEUTRAL 250MG TABLET (SOD.PHOSPHATE/POT.PHOSPHATE) PO (09:01)
[2017-12-24] MEDS: ENOXAPARIN 40 MG/0.4 ML SYRINGE (J1650) SC (09:02)
[2017-12-24] MEDS: POTASSIUM CHLORIDE 10 MEQ SR TABLET PO ×2 (13:13→17:17)
[2017-12-24] MEDS: LORazepam 2 MG/ML VIAL (J2060) IV (13:14)
[2017-12-24] MEDS ORDERED: clonazePAM 0.5 MG TAB PO (13:45)
[2017-12-25] MEDS: VANCOMYCIN ORAL SOL 250MG/5ML ORAL SYRINGE PO ×2 (05:16→12:18)
[2017-12-25 06:01] LABS: HEMATOCRIT 38.4 % (42.0-52.0); HEMOGLOBIN 13.3 g/dl (13.5-17.5); MEAN CORPUSCULAR HGB CONC 34.6 g/dl (32.0-36.5); MEAN CORPUSCULAR VOLUME 89.5 fl (80.0-96.0); PLATELET COUNT, AUTOMATED 212 10^3/uL (150-450); RED BLOOD COUNT 4.29 10^6/uL (4.30-6.10); RED CELL DISTRIBUTION WIDTH 13.9 % (11.5-14.5); WHITE BLOOD COUNT 8.8 10^3/uL (4.0-10.0)
[2017-12-25 06:18] LABS: ALBUMIN 2.4 GM/DL (3.2-5.2); ANION GAP 4 MEQ/L (8-16); BLOOD UREA NITROGEN 14 MG/DL (7-18); CALCIUM LEVEL 7.5 MG/DL (8.8-10.2); CARBON DIOXIDE LEVEL 32 MEQ/L (21-32); CHLORIDE LEVEL 110 MEQ/L (98-107); CREATININE FOR GFR 0.71 MG/DL (0.70-1.30); GLOMERULAR FILTRATION RATE > 60.0 (>42); GLUCOSE, FASTING 98 MG/DL (70-100); PHOSPHORUS LEVEL 2.2 MG/DL (2.5-4.9); POTASSIUM SERUM 3.7 MEQ/L (3.5-5.1); SODIUM LEVEL 146 MEQ/L (136-145)
[2017-12-25] MEDS: oxyCODONE 20 MG CR TAB PO (08:32)
[2017-12-25] MEDS: ENOXAPARIN 40 MG/0.4 ML SYRINGE (J1650) SC (08:32)
[2017-12-25] MEDS: POTASSIUM CHLORIDE 10 MEQ SR TABLET PO (08:33)
[2017-12-25] MEDS: GABAPENTIN 300 MG CAP PO (08:33)
[2017-12-25] MEDS: K-PHOS NEUTRAL 250MG TABLET (SOD.PHOSPHATE/POT.PHOSPHATE) PO (08:33)
[2017-12-25] MEDS: PREGABALIN 75 MG CAP(LYRICA) PO (08:33)
[2017-12-25] MEDS: MULTIVITAMINS/MINERALS THERAP 1 TAB PO (08:33)
[2017-12-25] MEDS ORDERED: LACTOBACILLUS ACIDOPHILUS CAP (BACID) PO (18:00)
== END 2017-12-25 14:20 | disposition home or self-care (01) | DRG 372 ==
LOC: M ED 10:11 → M ED INP 13:00 → M PCU 18:00
PROVIDERS: Hospitalist
DX: A04.72 Enterocolitis due to Clostridium difficile, not specified as recurrent (principal); K56.7 Ileus, unspecified; E87.6 Hypokalemia; D72.829 Elevated white blood cell count, unspecified; Z79.899 Other long term (current) drug therapy; Z88.8 Allergy status to other drugs, medicaments and biological substances; F41.9 Anxiety disorder, unspecified; M14.671 Charcot's joint, right ankle and foot; G89.29 Other chronic pain

== ENCOUNTER → 2017-12-31 | Outpatient (CLI) | payer MEDICARE | LOC: M PAIN 11:30 | DX: M96.1 Postlaminectomy syndrome, not elsewhere classified (principal); R33.9 Retention of urine, unspecified; G62.9 Polyneuropathy, unspecified; M14.679 Charcot's joint, unspecified ankle and foot; Z79.891 Long term (current) use of opiate analgesic; Z86.14 Personal history of Methicillin resistant Staphylococcus aureus infection; Z98.1 Arthrodesis status; Z87.891 Personal history of nicotine dependence; Z79.899 Other long term (current) drug therapy; Z88.8 Allergy status to other drugs, medicaments and biological substances | CPT/HCPCS: G0463 ==

== ENCOUNTER → 2018-02-03 | Outpatient (REF) | payer MEDICARE ==
[2018-02-03 18:32] LABS: APPEARANCE, URINE CLOUDY (CLEAR); BACTERIA, URINE AUTO 2+ (NEGATIVE); BILIRUBIN, URINE AUTO NEGATIVE (NEGATIVE); BLOOD, URINE BLOOD 2+ (NEGATIVE); COLOR, URINE YELLOW (YELLOW); GLUCOSE, URINE (UA) AUTO NEGATIVE (NEGATIVE); KETONE, URINE AUTO NEGATIVE (NEGATIVE); LEUKOCYTE ESTERASE, URINE AUTO 3+ (NEGATIVE); NITRITE, URINE AUTO NEGATIVE (NEGATIVE); PROTEIN, URINE AUTO 2+ mg/dL (NEGATIVE); RBC, URINE AUTO 6 /HPF (0-3); SPECIFIC GRAVITY URINE AUTO 1.011 (1.002-1.035); SQUAMOUS EPITHELIAL CELL UR AU 0 /HPF (0-6); UROBILINOGEN, URINE AUTO 0.2 mg/dL (0.0-2.0); WBC, URINE AUTO TNTC /HPF (0-3)
== END ==
LOC: M SMT 17:02
DX: R32 Unspecified urinary incontinence (principal)
CPT/HCPCS: 81001

== ENCOUNTER → 2018-02-08 | Outpatient (CLI) | payer MEDICARE | LOC: M PAIN 11:30 | DX: M96.1 Postlaminectomy syndrome, not elsewhere classified (principal); Z79.891 Long term (current) use of opiate analgesic; Z79.899 Other long term (current) drug therapy; Z88.5 Allergy status to narcotic agent; Z88.6 Allergy status to analgesic agent | CPT/HCPCS: G0463 ==

== ENCOUNTER → 2018-03-04 | Outpatient (REF) | payer MEDICARE ==
[2018-03-05 10:56] LABS: AMORPHOUS SEDIMENT SMALL (NEGATIVE); APPEARANCE, URINE CLOUDY (CLEAR); BACTERIA, URINE AUTO 2+ (NEGATIVE); BILIRUBIN, URINE AUTO NEGATIVE (NEGATIVE); BLOOD, URINE BLOOD 2+ (NEGATIVE); COLOR, URINE YELLOW (YELLOW); GLUCOSE, URINE (UA) AUTO NEGATIVE (NEGATIVE); KETONE, URINE AUTO NEGATIVE (NEGATIVE); LEUKOCYTE ESTERASE, URINE AUTO 3+ (NEGATIVE); MUCUS, URINE SMALL (NEGATIVE); NITRITE, URINE AUTO POSITIVE (NEGATIVE); PROTEIN, URINE AUTO 2+ mg/dL (NEGATIVE); RBC, URINE AUTO 29 /HPF (0-3); SPECIFIC GRAVITY URINE AUTO 1.021 (1.002-1.035); SQUAMOUS EPITHELIAL CELL UR AU 0 /HPF (0-6); UROBILINOGEN, URINE AUTO 0.2 mg/dL (0.0-2.0); WBC, URINE AUTO TNTC /HPF (0-3)
== END ==
LOC: M SMT 10:16
DX: R82.90 Unspecified abnormal findings in urine (principal)
CPT/HCPCS: 81001

== ENCOUNTER → 2018-03-10 | Outpatient (CLI) | payer MEDICARE | LOC: M PAIN 11:30 | DX: M96.1 Postlaminectomy syndrome, not elsewhere classified (principal); G62.9 Polyneuropathy, unspecified; Z79.891 Long term (current) use of opiate analgesic; Z79.899 Other long term (current) drug therapy; Z88.8 Allergy status to other drugs, medicaments and biological substances; Z87.891 Personal history of nicotine dependence; L89.513 Pressure ulcer of right ankle, stage 3 | CPT/HCPCS: G0463 ==

== ENCOUNTER → 2018-04-02 | Outpatient (CLI) | payer MEDICARE | LOC: M PAIN 11:30 | DX: M96.1 Postlaminectomy syndrome, not elsewhere classified (principal); Z79.891 Long term (current) use of opiate analgesic; Z79.899 Other long term (current) drug therapy; Z88.8 Allergy status to other drugs, medicaments and biological substances; Z87.891 Personal history of nicotine dependence | CPT/HCPCS: G0463 ==

== ENCOUNTER → 2018-04-30 | Outpatient (REF) | payer MEDICARE ==
[~2018-04-30] MED LIST changes: +BACITAB PO; -CLON0.5T OR; +CLON0.5T PO; +FIRS50SO PO; -GABA600T3 OR; +GABA600T3 PO; +LYRI150C PO; +OXYC60TA PO; +VITMTA PO
[2018-04-30 19:01] LABS: AMORPHOUS SEDIMENT MODERATE (NEGATIVE); APPEARANCE, URINE TURBID (CLEAR); BACTERIA, URINE AUTO 2+ (NEGATIVE); BILIRUBIN, URINE AUTO NEGATIVE (NEGATIVE); BLOOD, URINE BLOOD 3+ (NEGATIVE); COLOR, URINE YELLOW (YELLOW); GLUCOSE, URINE (UA) AUTO NEGATIVE (NEGATIVE); KETONE, URINE AUTO NEGATIVE (NEGATIVE); LEUKOCYTE ESTERASE, URINE AUTO 3+ (NEGATIVE); MUCUS, URINE LARGE (NEGATIVE); NITRITE, URINE AUTO POSITIVE (NEGATIVE); PROTEIN, URINE AUTO 2+ mg/dL (NEGATIVE); RBC, URINE AUTO TNTC /HPF (0-3); SPECIFIC GRAVITY URINE AUTO 1.014 (1.002-1.035); SQUAMOUS EPITHELIAL CELL UR AU 4 /HPF (0-6); UROBILINOGEN, URINE AUTO 0.2 mg/dL (0.0-2.0); WBC, URINE AUTO TNTC /HPF (0-3)
== END ==
LOC: M SMT 17:27
PROVIDERS: ATTEND Nurse Practitioner Family
DX: R82.90 Unspecified abnormal findings in urine (principal)

== ENCOUNTER → 2018-06-23 | Outpatient (REF) | payer MEDICARE | LOC: M SMT 13:00 | PROVIDERS: ATTEND Urology | DX: R33.9 Retention of urine, unspecified (principal) | CPT/HCPCS: 51702; 87088; 87186; G0463 ==

== ENCOUNTER → 2018-06-29 | Outpatient (CLI) | payer MEDICARE ==
--- NOTE | 2018-07-12 00:23 | ECWPNPC ---
PATIENT NAME: KAI PAREKH : 1945 GENDER: MALE VISIT DATE: 06/29/2018 DISCHARGE DATE: 06/29/18 1148 VISIT LOCKED DATE TIME: PHYSICIAN: JARED MÉNDEZ RESOURCE: JARED MÉNDEZ HISTORY OF PRESENT ILLNESS HISTORY OF PRESENT ILLNESS: HERE FOR MEDICINE MANAGEMENT FOR CHRONIC PAIN OF LOW BACK AND LOWER EXTREMITIES.WE ARE IN THE PROCESS OF WEANING DOWN NARCOTIC MEDICATION.HE IS TOLERATING THIS WELL RATING PAIN VAS 5/10.DENIES SIDE EFFECTS WITH MEDICATION.BRINGS IN MEDICATION THAT IS APPROPRIATE FOR WHAT WAS DISPENSED.CURRENTLY TAKING OXYCODONE ER 40MG IN AM AND 40MG IN PM. PAIN THE PATIENT DESCRIBES THE PAIN... THE PATIENT DESCRIBES THE PAIN... THE PATIENT DESCRIBES THE PAIN... FALL RISK SCREENING: SCREENING :NO FALLS IN THE PAST YEAR CURRENT MEDICATIONS TAKING FISH OIL 1000 MG CAPSULE 1 CAPSULE ORALLY ONCE A DAY TAKING MULTI FOR HIM - TABLET 1 TAB ORALLY DAILY TAKING VITAMIN B-12 100 MCG TABLET ORALLY TAKING OXYBUTYNIN CHLORIDE 5 MG TABLET 1 TABLET ORALLY TWICE A DAY TAKING NYSTATIN 811559 UNIT/GM CREAM 1 APPLICATION TO FORESKIN EXTERNALLY TWICE A DAY TAKING KLONOPIN 0.5 MG TABLET 1 TABLET AT BEDTIME ORALLY TID TAKING NEURONTIN 600 MG TABLET 1 TABLET ORALLY TID TAKING OXYCONTIN 40 MG TABLET ER 12 HOUR ABUSE-DETERRENT 1 TABLET ORALLY Q12H BID MDD2 TAKING CLONAZEPAM 0.5 MG TABLET 1 TABLET AT BEDTIME ORALLY Q8H PRN MDD3 TAKING LYRICA 150 MG CAPSULE 1 CAPSULE ORALLY BID MDD2 TAKING BACTRIM DS 800-160 MG TABLET 1 TABLET ORALLY TWICE A DAY NOT-TAKING FLUCONAZOLE 200 MG TABLET 1 TABLET ORALLY ONCE A DAY NOT-TAKING SULFAMETHOXAZOLE-TRIMETHOPRIM 800-160 MG TABLET 1 TABLET ORALLY TWICE A DAY NOT-TAKING AMPICILLIN 500 MG CAPSULE 1 CAPSULE 1 HOUR BEFORE OR 2 HOURS AFTER A MEAL ORALLY EVERY 6 HRS MEDICATION LIST REVIEWED AND RECONCILED WITH THE PATIENT PAST MEDICAL HISTORY HX OF PRESSURE ULCER RIGHT LATERAL MALLEOLUS CHRONIC BACK PAIN NEUROPATHIC CHARCOT FOOT HX MRSA RIGHT FOOT URINARY RETENTION FROM BACK SURGURY CHRONIC NEUROPATHY WITH WITH CHRONICLOWER EXTREMITY WEAKNESS BACK SURGERY 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 SOCIAL HISTORY GENERAL: TOBACCO USE ARE YOU A:FORMER SMOKER FORMER SMOKER AGE 31 HE QUIT HOW LONG HAS IT BEEN SINCE YOU LAST SMOKED?> 10 YEARS ADDITIONAL FINDINGS: TOBACCO USER NO ADDITIONAL FINDINGS: TOBACCO NON-USERCURRENT NON-SMOKER VAPORNO E-CIGARETTENO LUNG CANCER SCREENING SMOKING STATUS:FORMER SMOKER IS THE PATIENT BETWEEN THE AGE OF 54 AND 76?YES HAVE YOU QUIT SMOKING WITHIN THE PAST 15 YEARS?YES ALCOHOL SCREENING DID YOU HAVE A DRINK CONTAINING ALCOHOL IN THE PAST YEAR?NO POINTS0 INTERPRETATIONNEGATIVE RECREATIONAL DRUG USE DRUG USE?NO PATIENT DENIES ABUSE OR MISSUSED OF ANY MEDICATION. PATIENT DENIES USE OF ANY ILLEGAL SUBSTANCE INCLUDING MARIJUANA OR COCAINE. CAFFEINE CAFFEINE USE?YES HOW OFTEN AND HOW MUCH? 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 DIET: REGULAR. EXERCISE: NONE. MARITAL STATUS: . PAIN CLINIC PFS, CLERGY, PUBLIC HEALTH REFERRALS PFS REFERRAL NEEDED?NO CLERGY REFERRAL NEEDED?NO PUBLIC HEALTH REFERRAL NEEDED?NO WAS THE PROVIDER NOTIFIED OF ANY PERTINENT INFO?NO HAS THE PATIENT BEEN EDUCATED REGARDING HIS/HER PLAN OF CARE?YES HAS THE PATIENT BEEN EDUCATED REGARDING PAIN, THE RISK FOR PAIN, THE IMPORTANCE OF EFFECTIVE PAIN MANAGEMENT, AND THE PAIN ASSESSMENT PROCESS?YES ADVANCE DIRECTIVE ADVANCE DIRECTIVE DISCUSSED WITH PATIENT:YES HCP - STATES HE HAS HCP FOR NELY PAREKH- 04/02/18 BV REVIEWED WITH PATIENT 03/10/18 1155 JSREVIEWED WITH PT 04/02/18 1150 BVREVIEWED WITH PATIENT 06/29/18 1102 JS. HOSPITALIZATION/MAJOR DIAGNOSTIC PROCEDURE SURGERY RELATED C-DIFF INFECTION - [facility] NOVEMBER-DECEMBER 2017 REVIEW OF SYSTEMS REVIEWED BY: PROVIDER: JARED GARCIA . CONSTITUTIONAL: ANY CHANGE IN YOUR MEDICAL CONDITION? NO . CHILLS NO . FEVER NO . INFECTION: DO YOU HAVE NEW INFECTIONS? YES, UTI, ON ANTIBIOTICS . DO YOU HAVE HISTORY OF MRSA? NO . MUSCULOSKELETAL: ANY NEW PATTERNS OF PAIN OR NUMBNESS? NO . GASTROENTEROLOGY: ANY NEW CHANGE IN BOWEL CONTROL? NO . GENITOURINARY: ANY NEW CHANGE IN BLADDER CONTROL? NO . IS THERE A CHANCE YOU COULD BE ? NO . HEMATOLOGY/LYMPH: DO YOU TAKE ANY BLOOD THINNERS? (FOR EXAMPLE- COUMADIN, PLAVIX, AGGRENOX, PLATEL, PRADAXA, OR XARELTO) NO . WHEN WAS YOUR LAST DOSE? DATE: TIME: . NEUROLOGY: HAVE YOU FALLEN IN THE PAST 12 MONTHS? YES, STATES FALL YESTERDAY GOING FROM BED TO WHEELCHAIR, SLID DOWN BETWEEN THE TWO. DENIES INJURIES, STATESNO ED VISIT . ANY NEW EXTREMITY NUMBNESS OR WEAKNESS? NO . CARDIOLOGY: DO YOU HAVE A PACEMAKER OR DEFIBRILLATOR? NO . RESPIRATORY: HAVE YOU BEEN SICK IN THE PAST WEEK? NO . FEVER NO . FLU LIKE SYMPTOMS? NO . COUGH YES, PRODUCTIVE . INTEGUMENTARY: DO YOU HAVE ANY RASHES OR OPEN SORES? NO . ALLERGIC/IMMUNO: ARE YOU ALLERGIC TO IV DYE? NO . ANY NEW ALLERGIES? NO . PSYCHIATRIC: DO YOU HAVE THOUGHTS OF HURTING YOURSELF OR SOMEONE ELSE? NO . ARE YOU ABUSED, NEGLECTED, OR IN AN UNSAFE ENVIRONMENT? NO . ENDOCRINOLOGY: ARE YOU DIABETIC? NO . OTHER: DO YOU NEED ANY PRESCRIPTIONS? NO . IF YES, PLEASE LIST: ____ . ANY NEW PROBLEMS WITH YOUR MEDICATIONS? YES, STATES WITH NEW ANTIBIOTIC, INFORMED APTIENT TO DISCUSS WITH PCP . WHEN DID YOU LAST EAT? ____ . WHEN DID YOU LAST DRINK? ____ . WHAT DID YOU LAST DRINK? ____ . NAME OF PERSON DRIVING YOU HOME? ____ . DO YOU HAVE ANY OTHER QUESTIONS OR CONCERNS NO . VITAL SIGNS WT 210 LBS, HT 74 IN, BMI 26.96 INDEX, BP 106/57 MM HG, HR 85 /MIN, RR 18 /MIN, TEMP 98.9 F, OXYGEN SAT % 91%, SAFE IN ENV? (Y/N) YES, NA INITIALS ID [id number], REVIEWED BY: VIKY. EXAMINATION GENERAL EXAMINATION: LUNGS:LUNG SOUNDS ARE CLEAR. HEART:HEART RATE REGULAR. ASSESSMENTS POST LAMINECTOMY SYNDROME - M96.1 (PRIMARY) TREATMENT POST LAMINECTOMY SYNDROME REFILL OXYCONTIN TABLET ER 12 HOUR ABUSE-DETERRENT, 30 MG, 1 TABLET, ORALLY, Q12H BID MDD2, 30 DAY(S), 60, REFILLS 0 CONTINUE LYRICA CAPSULE, 150 MG, 1 CAPSULE, ORALLY, BID MDD2 CONTINUE CLONAZEPAM TABLET, 0.5 MG, 1 TABLET AT BEDTIME, ORALLY, Q8H PRN MDD3 CONTINUE NEURONTIN TABLET, 600 MG, 1 TABLET, ORALLY, TID NOTES: ISTOP REGISTRY REVIEWED AND DEMONSTRATES COMPLLIANCE. (REF # [id number] ) BRINGS IN MEDICATIONS WHICH IS APPROPRIATE FOR WHAT WAS DISPENSED. RECENT URINE TOXICOLOGY REVIEWED. NO UNAUTHORIZED MEDICATIONS. NO ILLICIT SUBSTANCES AND PRESCRIBED MEDICATIONS WERE PRESENT. , RISKS AND BENEFITS OF NARCOTIC/OPIOD MEDICATIONS WERE REVIEWED WITH PATIENT - THIS INCLUDES BUT IS NOT LIMITED TO RISK OF DEPENDANCE/DEVELOPMENT OF ADDICTION, MOOD DISTURBANCE AND DEPRESSION, OSTEOPOROSIS, HORMONAL AND LABIDAL CHANGES, RESPIRATORY DEPRESSION AND . PATIENT IS ADVISED NOT TO DRIVE OR DRINK ALCOHOL WHILE ON THESE MEDICATIONS, REVIEWED WITH PATIENT THE POTENTIAL RISK OF INCREASED SEDATION, RESPIRATORY SUPPRESSION AND WITH THE COMBINATION OF BENZODIAZAPINE AND OPIOD MEDICATIONS. PATIENT STATES HE UNDERSTANDS THIS RISK AND WISHES TO CONTINUE WITH THERAPY. PROCEDURE CODES FA211 ESTABILISHED PATIENT [facility] CHARGE DISPOSITION & COMMUNICATION FOLLOW UP 3 MONTHS ELECTRONICALLY SIGNED BY RADHA PETE ON 07/11/2018 AT 02:51 PM EST DISCLAIMER : THIS IS A VISIT SUMMARY EXTRACTED FROM THE [employer] CHART. IT IS NOT A COPY OF THE [employer] PROGRESS NOTE. RUDY
== END ==
LOC: M PAIN 10:45
PROVIDERS: ATTEND Nurse Practitioner Family
DX: M96.1 Postlaminectomy syndrome, not elsewhere classified (principal); M14.679 Charcot's joint, unspecified ankle and foot; G62.89 Other specified polyneuropathies; Z87.440 Personal history of urinary (tract) infections; Z86.14 Personal history of Methicillin resistant Staphylococcus aureus infection; Z79.899 Other long term (current) drug therapy; Z79.891 Long term (current) use of opiate analgesic; Z87.891 Personal history of nicotine dependence; Z98.1 Arthrodesis status; Z88.8 Allergy status to other drugs, medicaments and biological substances

== ENCOUNTER 2018-07-07 11:03 | Emergency (ER) | payer MEDICARE ==
[~2018-07-07] VITALS: Ht 188 cm; Wt 95.5 kg
[2018-07-07 11:04] VITALS: BP 149/77
[2018-07-07] MEDS ORDERED: LIDOCAINE 2% 5ML JELLY UROJET TOP ONE (11:45)
== END 2018-07-07 12:14 | disposition home or self-care (01) ==
LOC: M ED 11:03
DX: T83.028A Displacement of other urinary catheter, initial encounter (principal)

== ENCOUNTER → 2018-09-27 | Outpatient (CLI) | payer MEDICARE ==
[~2018-09-27] MED LIST changes: -/DULO30CA OR; -ASPI1TAB PO; +ASPI81TA26 PO; +CYMB1CAP5 OR
--- NOTE | 2018-10-14 01:48 | ECWPNPC ---
PATIENT NAME: KAI PAREKH : 1945 GENDER: MALE VISIT DATE: 09/27/2018 DISCHARGE DATE: 09/27/18 1147 VISIT LOCKED DATE TIME: PHYSICIAN: JARED MÉNDEZ RESOURCE: JARED MÉNDEZ DISCLAIMER : THIS IS A VISIT SUMMARY EXTRACTED FROM THE [facility] CHART. IT IS NOT A COPY OF THE [employer] PROGRESS NOTE. RUDY
== END ==
LOC: M PAIN 11:00
PROVIDERS: ATTEND Nurse Practitioner Family
DX: M96.1 Postlaminectomy syndrome, not elsewhere classified (principal); Z86.14 Personal history of Methicillin resistant Staphylococcus aureus infection; G62.9 Polyneuropathy, unspecified; Z87.891 Personal history of nicotine dependence; Z88.1 Allergy status to other antibiotic agents; Z86.19 Personal history of other infectious and parasitic diseases; Z79.891 Long term (current) use of opiate analgesic; Z79.899 Other long term (current) drug therapy

== ENCOUNTER → 2018-12-31 | Outpatient (CLI) | payer MEDICARE ==
--- NOTE | 2019-01-18 01:20 | ECWPNPC ---
PATIENT NAME: KAI PAREKH : 1945 GENDER: MALE VISIT DATE: 12/31/2018 DISCHARGE DATE: 12/31/18 1141 VISIT LOCKED DATE TIME: PHYSICIAN: JARED MÉNDEZ RESOURCE: JARED MÉNDEZ REASON FOR APPOINTMENT 1. 3 MONTHS BACK/LEGS HISTORY OF PRESENT ILLNESS HISTORY OF PRESENT ILLNESS: HERE FOR MEDICINE MANAGEMENT FOR CHRONIC PAIN OF LOW BACK AND LOWER EXTREMITIES. RATING PAIN VAS 6/10.DENIES SIDE EFFECTS WITH MEDICATION.BRINGS IN MEDICATION THAT IS APPROPRIATE FOR WHAT WAS DISPENSED.CURRENTLY TAKING OXYCODONE ER 30MG IN AM AND 30MG IN PM.TAKING LYRICA 150MG BID,CLONAZEPAM AND GABAPENTIN. PAIN THE PATIENT DESCRIBES THE PAIN... THE PATIENT DESCRIBES THE PAIN... THE PATIENT DESCRIBES THE PAIN... THE PATIENT DESCRIBES THE PAIN... THE PATIENT DESCRIBES THE PAIN... FALL RISK SCREENING: SCREENING :NO FALLS REPORTED IN THE LAST YEAR CURRENT MEDICATIONS TAKING FISH OIL 1000 MG CAPSULE 1 CAPSULE ORALLY ONCE A DAY TAKING MULTI FOR HIM - TABLET 1 TAB ORALLY DAILY TAKING VITAMIN B-12 100 MCG TABLET ORALLY TAKING NEURONTIN 600 MG TABLET 1 TABLET ORALLY TID TAKING LYRICA 150 MG CAPSULE 1 CAPSULE ORALLY BID MDD2 TAKING OXYCONTIN 30 MG TABLET ER 12 HOUR ABUSE-DETERRENT 1 TABLET ORALLY Q12H BID MDD2 TAKING CLONAZEPAM 0.5 MG TABLET 1 TABLET AT BEDTIME ORALLY Q8H PRN MDD3 NOT-TAKING NYSTATIN [id number] UNIT/GM CREAM 1 APPLICATION TO FORESKIN EXTERNALLY TWICE A DAY NOT-TAKING KLONOPIN 0.5 MG TABLET 1 TABLET AT BEDTIME ORALLY TID, NOTES: DUPLICATE NOT-TAKING BACTRIM DS 800-160 MG TABLET 1 TABLET ORALLY TWICE A DAY NOT-TAKING OXYBUTYNIN CHLORIDE 5 MG TABLET 1 TABLET ORALLY TWICE A DAY NOT-TAKING FLUCONAZOLE 200 MG TABLET 1 TABLET ORALLY ONCE A DAY NOT-TAKING SULFAMETHOXAZOLE-TRIMETHOPRIM 800-160 MG TABLET 1 TABLET ORALLY TWICE A DAY NOT-TAKING AMPICILLIN 500 MG CAPSULE 1 CAPSULE 1 HOUR BEFORE OR 2 HOURS AFTER A MEAL ORALLY EVERY 6 HRS MEDICATION LIST REVIEWED AND RECONCILED WITH THE PATIENT PAST MEDICAL HISTORY HX OF PRESSURE ULCER RIGHT LATERAL MALLEOLUS CHRONIC BACK PAIN NEUROPATHIC CHARCOT FOOT HX MRSA RIGHT FOOT URINARY RETENTION FROM BACK SURGURY CHRONIC NEUROPATHY WITH WITH CHRONICLOWER EXTREMITY WEAKNESS BACK SURGERY 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 SOCIAL HISTORY GENERAL: TOBACCO USE ARE YOU A:FORMER SMOKER FORMER SMOKER AGE 31 HE QUIT HOW LONG HAS IT BEEN SINCE YOU LAST SMOKED?> 10 YEARS ADDITIONAL FINDINGS: TOBACCO USER NO ADDITIONAL FINDINGS: TOBACCO NON-USERCURRENT NON-SMOKER VAPORNO E-CIGARETTENO HIV / HEP-C SCREENING HIV TEST OFFERED TO PATIENT:YES DATE OFFERED:07/16/2016 TEST ACCEPTED:NO REASON:PATIENT DECLINED HEP-C TEST OFFERED TO PATIENT:YES DATE OFFERED:07/16/2016 TEST ACCEPTED:NO REASON:PATIENT DECLINED EDUCATION LEVEL OF EDUCATION:FINISHED HIGH SCHOOL DIET: REGULAR. LANGUAGE THAI. DOMESTIC VIOLENCE STATUS: DO YOU FEEL SAFE IN YOUR ENVIRONMENT?YES RECREATIONAL DRUG USE DRUG USE?NO PATIENT DENIES ABUSE OR MISSUSED OF ANY MEDICATION. PATIENT DENIES USE OF ANY ILLEGAL SUBSTANCE INCLUDING MARIJUANA OR COCAINE. EXERCISE: NONE. 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?NO LUNG CANCER SCREENING SMOKING STATUS:FORMER SMOKER IS THE PATIENT BETWEEN THE AGE OF 54 AND 76?YES HAVE YOU QUIT SMOKING WITHIN THE PAST 15 YEARS?YES PAIN CLINIC PFS, CLERGY, PUBLIC HEALTH REFERRALS PFS REFERRAL NEEDED?NO CLERGY REFERRAL NEEDED?NO PUBLIC HEALTH REFERRAL NEEDED?NO WAS THE PROVIDER NOTIFIED OF ANY PERTINENT INFO?NO HAS THE PATIENT BEEN EDUCATED REGARDING HIS/HER PLAN OF CARE?YES HAS THE PATIENT BEEN EDUCATED REGARDING PAIN, THE RISK FOR PAIN, THE IMPORTANCE OF EFFECTIVE PAIN MANAGEMENT, AND THE PAIN ASSESSMENT PROCESS?YES LATEX QUESTIONNAIRE LATEX ALLERGY : HAVE YOU EVER DEVELOPED ANY TYPE OF REACTION AFTER HANDLING LATEX PRODUCTS SUCH RUBBER GLOVES, CONDOMS, DIAPHRAGMS, BALLOONS, SOCKS, OR UNDERWEAR?NO LATEX ALLERGY : HAVE YOU EVER DEVELOPED ANY TYPE OF REACTION DURING OR AFTER DENTAL APPOINTMENT, VAGINAL/RECTAL EXAMINATION, SURGICAL PROCEDURE, OR ANY OTHER EXPOSURE?NO LATEX RISK : HAVE YOU EVER HAD ANY DIFFICULTY BREATHING OR HIVES AFTER EATING OR HANDLING ANY FRUITS, OR VEGETABLES; SUCH KIWI, BANANAS, STONE FRUITS, OR CHESTNUTSNO LATEX RISK : DO YOU HAVE A PREVIOUS PERSONAL HISTORY OF MORE THAN NINE SURGERIES, SPINA BIFIDA, OR REPEATED CATHERIZATIONS? YES MONTHLY STEWART CATHETER - PLEASE INDICATE : > 9 SURGERIES, REPEATED CATHETERIZATIONS LATEX RISK : ARE YOU FREQUENTLY EXPOSED TO LATEX PRODUCTS IN YOUR OCCUPATION?NO DATE ASKED : 12/03/2018 CAFFEINE CAFFEINE USE?YES HOW OFTEN AND HOW MUCH? 1 SOFT DRINK ADVANCE DIRECTIVE ADVANCE DIRECTIVE DISCUSSED WITH PATIENT:YES HCP - STATES HE HAS HCP FOR NELY PAREKH- MAN[place] NO MOSQUE BELIEFS THAT WOULD IMPACT HEALTH CARE. MARITAL STATUS: . ALCOHOL SCREENING DID YOU HAVE A DRINK CONTAINING ALCOHOL IN THE PAST YEAR?NO POINTS0 INTERPRETATIONNEGATIVE OCCUPATION: DISABLED. REVIEWED WITH PATIENT 03/10/18 1155 JSREVIEWED WITH PT 04/02/18 1150 BVREVIEWED WITH PATIENT 06/29/18 1102 JSREVIEWED WITH PATIENT 09/27/18 1120 JS. HOSPITALIZATION/MAJOR DIAGNOSTIC PROCEDURE SURGERY RELATED C-DIFF INFECTION - [facility] NOVEMBER-DECEMBER 2017 REVIEW OF SYSTEMS REVIEWED BY: PROVIDER: JAERD GARCIA . CONSTITUTIONAL: ANY CHANGE IN YOUR MEDICAL CONDITION? NO . CHILLS NO . FEVER NO . INFECTION: DO YOU HAVE NEW INFECTIONS? YES, RIGHT FOOT TOE INFECTED ON ABX CANT REMEMBER NAME . DO YOU HAVE HISTORY OF MRSA? YES . MUSCULOSKELETAL: ANY NEW PATTERNS OF PAIN OR NUMBNESS? NO . GASTROENTEROLOGY: ANY NEW CHANGE IN BOWEL CONTROL? NO . GENITOURINARY: ANY NEW CHANGE IN BLADDER CONTROL? NO . IS THERE A CHANCE YOU COULD BE ? NO . HEMATOLOGY/LYMPH: DO YOU TAKE ANY BLOOD THINNERS? (FOR EXAMPLE- COUMADIN, PLAVIX, AGGRENOX, PLATEL, PRADAXA, OR XARELTO) NO . WHEN WAS YOUR LAST DOSE? DATE: TIME: . NEUROLOGY: HAVE YOU FALLEN IN THE PAST 12 MONTHS? YES, FELL OUT OF WHEELCHAIR IN YARD HIT A BUMP, PT DENIES INJURIES . ANY NEW EXTREMITY NUMBNESS OR WEAKNESS? NO . CARDIOLOGY: DO YOU HAVE A PACEMAKER OR DEFIBRILLATOR? NO . RESPIRATORY: HAVE YOU BEEN SICK IN THE PAST WEEK? NO . FEVER NO . FLU LIKE SYMPTOMS? NO . COUGH NO . INTEGUMENTARY: DO YOU HAVE ANY RASHES OR OPEN SORES? NO . ALLERGIC/IMMUNO: ARE YOU ALLERGIC TO IV DYE? NO . ANY NEW ALLERGIES? NO . PSYCHIATRIC: DO YOU HAVE THOUGHTS OF HURTING YOURSELF OR SOMEONE ELSE? YES, THOUGHTS OF HURTING HIMSELF, NO PLAN, JUST PASSING THOUGHTS . ARE YOU ABUSED, NEGLECTED, OR IN AN UNSAFE ENVIRONMENT? NO . ENDOCRINOLOGY: ARE YOU DIABETIC? NO . OTHER: DO YOU NEED ANY PRESCRIPTIONS? YES, OXY, LYRICA . IF YES, PLEASE LIST: ____ . ANY NEW PROBLEMS WITH YOUR MEDICATIONS? NO . WHEN DID YOU LAST EAT? ____ . WHEN DID YOU LAST DRINK? ____ . WHAT DID YOU LAST DRINK? ____ . NAME OF PERSON DRIVING YOU HOME? ____ . DO YOU HAVE ANY OTHER QUESTIONS OR CONCERNS NO . VITAL SIGNS WT 215 LBS, HT 74 IN, BMI 27.60 INDEX, BP 133/69 MM HG, HR 65 /MIN, RR 18 /MIN, TEMP 97.6 F, OXYGEN SAT % 99%, NA INITIALS AW 1110, REVIEWED BY: EM. EXAMINATION GENERAL EXAMINATION: LUNGS:LUNG SOUNDS ARE CLEAR. HEART:HEART RATE REGULAR. ASSESSMENTS POST LAMINECTOMY SYNDROME - M96.1 (PRIMARY) TREATMENT POST LAMINECTOMY SYNDROME CONTINUE LYRICA CAPSULE, 150 MG, 1 CAPSULE, ORALLY, BID MDD2 REFILL OXYCONTIN TABLET ER 12 HOUR ABUSE-DETERRENT, 30 MG, 1 TABLET, ORALLY, Q12H BID MDD2, 30 DAY(S), 60, REFILLS 0 NOTES: ISTOP REGISTRY REVIEWED AND DEMONSTRATES COMPLLIANCE. BRINGS IN MEDICATIONS WHICH IS APPROPRIATE FOR WHAT WAS DISPENSED. RECENT URINE TOXICOLOGY REVIEWED. NO UNAUTHORIZED MEDICATIONS. NO ILLICIT SUBSTANCES AND PRESCRIBED MEDICATIONS WERE PRESENT. , RISKS AND BENEFITS OF NARCOTIC/OPIOD MEDICATIONS WERE REVIEWED WITH PATIENT - THIS INCLUDES BUT IS NOT LIMITED TO RISK OF DEPENDANCE/DEVELOPMENT OF ADDICTION, MOOD DISTURBANCE AND DEPRESSION, OSTEOPOROSIS, HORMONAL AND LABIDAL CHANGES, RESPIRATORY DEPRESSION AND . PATIENT IS ADVISED NOT TO DRIVE OR DRINK ALCOHOL WHILE ON THESE MEDICATIONS. PROCEDURE CODES FA211 ESTABILISHED PATIENT [facility] CHARGE DISPOSITION & COMMUNICATION FOLLOW UP 3 MONTHS (REASON: MED MGMNT) ELECTRONICALLY SIGNED BY RADHA PETE ON 01/17/2019 AT 04:49 PM EDT DISCLAIMER : THIS IS A VISIT SUMMARY EXTRACTED FROM THE [employer] CHART. IT IS NOT A COPY OF THE [employer] PROGRESS NOTE. RUDY
== END ==
LOC: M PAIN 11:00
PROVIDERS: ATTEND Nurse Practitioner Family
DX: M96.1 Postlaminectomy syndrome, not elsewhere classified (principal); Z86.14 Personal history of Methicillin resistant Staphylococcus aureus infection; Z87.891 Personal history of nicotine dependence; Z88.1 Allergy status to other antibiotic agents; Z79.891 Long term (current) use of opiate analgesic; Z79.899 Other long term (current) drug therapy
CPT/HCPCS: 51703; G0463

== ENCOUNTER → 2019-03-28 | Outpatient (REF) | payer MEDICARE ==
[2019-03-28 17:35] LABS: AMORPHOUS SEDIMENT SMALL (NEGATIVE); APPEARANCE, URINE CLOUDY (CLEAR); BACTERIA, URINE AUTO NEGATIVE (NEGATIVE); BILIRUBIN, URINE AUTO NEGATIVE (NEGATIVE); BLOOD, URINE BLOOD 1+ (NEGATIVE); COLOR, URINE AMBER (YELLOW); GLUCOSE, URINE (UA) AUTO NEGATIVE (NEGATIVE); KETONE, URINE AUTO NEGATIVE (NEGATIVE); LEUKOCYTE ESTERASE, URINE AUTO 2+ (NEGATIVE); MUCUS, URINE SMALL (NEGATIVE); NITRITE, URINE AUTO NEGATIVE (NEGATIVE); PROTEIN, URINE AUTO 3+ mg/dL (NEGATIVE); RBC, URINE AUTO 73 /HPF (0-3); SPECIFIC GRAVITY URINE AUTO 1.014 (1.002-1.035); SQUAMOUS EPITHELIAL CELL UR AU 0 /HPF (0-6); TRIPLE PHOSPHATE CRYSTALS SMALL; UROBILINOGEN, URINE AUTO 0.2 mg/dL (0.0-2.0); WBC, URINE AUTO 46 /HPF (0-3)
== END ==
LOC: M SMT 16:55
PROVIDERS: ATTEND Nurse Practitioner Family
DX: R82.90 Unspecified abnormal findings in urine (principal)

== ENCOUNTER → 2019-04-01 | Outpatient (CLI) | payer MEDICARE ==
--- NOTE | 2019-04-13 05:45 | ECWPNPC ---
PATIENT NAME: KAI PAREKH : 1945 GENDER: MALE VISIT DATE: 04/01/2019 DISCHARGE DATE: 04/01/19 1218 VISIT LOCKED DATE TIME: PHYSICIAN: JARED MÉNDEZ RESOURCE: JARED MÉNDEZ REASON FOR APPOINTMENT 1. MED MGMNT HISTORY OF PRESENT ILLNESS HISTORY OF PRESENT ILLNESS: PAIN THE PATIENT DESCRIBES THE PAIN... FALL RISK SCREENING: SCREENING :NO FALLS REPORTED IN THE LAST YEAR CURRENT MEDICATIONS TAKING MULTI FOR HIM - TABLET 1 TAB ORALLY DAILY TAKING VITAMIN B-12 100 MCG TABLET ORALLY TAKING NEURONTIN 600 MG TABLET 1 TABLET ORALLY TID TAKING LYRICA 150 MG CAPSULE 1 CAPSULE ORALLY BID MDD2 TAKING CLONAZEPAM 0.5 MG TABLET 1 TABLET AT BEDTIME ORALLY Q8H PRN MDD3 TAKING OXYCONTIN 30 MG TABLET ER 12 HOUR ABUSE-DETERRENT 1 TABLET ORALLY Q12H BID MDD2 TAKING CIPRO 500 MG TABLET 1 TABLET ORALLY EVERY 12 HRS NOT-TAKING FISH OIL 1000 MG CAPSULE 1 CAPSULE ORALLY ONCE A DAY NOT-TAKING NYSTATIN [id number] UNIT/GM CREAM 1 APPLICATION TO FORESKIN EXTERNALLY TWICE A DAY NOT-TAKING KLONOPIN 0.5 MG TABLET 1 TABLET AT BEDTIME ORALLY TID, NOTES: DUPLICATE NOT-TAKING BACTRIM DS 800-160 MG TABLET 1 TABLET ORALLY TWICE A DAY NOT-TAKING OXYBUTYNIN CHLORIDE 5 MG TABLET 1 TABLET ORALLY TWICE A DAY NOT-TAKING FLUCONAZOLE 200 MG TABLET 1 TABLET ORALLY ONCE A DAY NOT-TAKING SULFAMETHOXAZOLE-TRIMETHOPRIM 800-160 MG TABLET 1 TABLET ORALLY TWICE A DAY NOT-TAKING AMPICILLIN 500 MG CAPSULE 1 CAPSULE 1 HOUR BEFORE OR 2 HOURS AFTER A MEAL ORALLY EVERY 6 HRS DISCONTINUED BACTRIM DS 800-160 MG TABLET 1 TABLET ORALLY TWICE A DAY MEDICATION LIST REVIEWED AND RECONCILED WITH THE PATIENT PAST MEDICAL HISTORY HX OF PRESSURE ULCER RIGHT LATERAL MALLEOLUS CHRONIC BACK PAIN NEUROPATHIC CHARCOT FOOT HX MRSA RIGHT FOOT URINARY RETENTION FROM BACK SURGURY CHRONIC NEUROPATHY WITH WITH CHRONICLOWER EXTREMITY WEAKNESS BACK SURGERY 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 SOCIAL HISTORY GENERAL: TOBACCO USE ARE YOU A:FORMER SMOKER FORMER SMOKER AGE 31 HE QUIT HOW LONG HAS IT BEEN SINCE YOU LAST SMOKED?> 10 YEARS ADDITIONAL FINDINGS: TOBACCO USER NO ADDITIONAL FINDINGS: TOBACCO NON-USERCURRENT NON-SMOKER VAPORNO E-CIGARETTENO HIV / HEP-C SCREENING HIV TEST OFFERED TO PATIENT:YES DATE OFFERED:07/16/2016 TEST ACCEPTED:NO HEP-C TEST OFFERED TO PATIENT:YES DATE OFFERED:07/16/2016 REASON:PATIENT DECLINED TEST ACCEPTED:NO REASON:PATIENT DECLINED EDUCATION LEVEL OF EDUCATION:FINISHED HIGH SCHOOL DIET: REGULAR. LANGUAGE CROATIAN. DOMESTIC VIOLENCE STATUS: DO YOU FEEL SAFE IN YOUR ENVIRONMENT?YES RECREATIONAL DRUG USE DRUG USE?NO PATIENT DENIES ABUSE OR MISSUSED OF ANY MEDICATION. PATIENT DENIES USE OF ANY ILLEGAL SUBSTANCE INCLUDING MARIJUANA OR COCAINE. EXERCISE: NONE. 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 LUNG CANCER SCREENING SMOKING STATUS:FORMER SMOKER IS THE PATIENT BETWEEN THE AGE OF 54 AND 76?YES HAVE YOU QUIT SMOKING WITHIN THE PAST 15 YEARS?YES PAIN CLINIC PFS, CLERGY, PUBLIC HEALTH REFERRALS PFS REFERRAL NEEDED?NO CLERGY REFERRAL NEEDED?NO PUBLIC HEALTH REFERRAL NEEDED?NO WAS THE PROVIDER NOTIFIED OF ANY PERTINENT INFO?NO HAS THE PATIENT BEEN EDUCATED REGARDING HIS/HER PLAN OF CARE?YES HAS THE PATIENT BEEN EDUCATED REGARDING PAIN, THE RISK FOR PAIN, THE IMPORTANCE OF EFFECTIVE PAIN MANAGEMENT, AND THE PAIN ASSESSMENT PROCESS?YES LATEX QUESTIONNAIRE LATEX ALLERGY : HAVE YOU EVER DEVELOPED ANY TYPE OF REACTION AFTER HANDLING LATEX PRODUCTS SUCH RUBBER GLOVES, CONDOMS, DIAPHRAGMS, BALLOONS, SOCKS, OR UNDERWEAR?NO DATE ASKED : 03/04/2019 LATEX RISK : HAVE YOU EVER HAD ANY DIFFICULTY BREATHING OR HIVES AFTER EATING OR HANDLING ANY FRUITS, OR VEGETABLES; SUCH KIWI, BANANAS, STONE FRUITS, OR CHESTNUTSNO LATEX RISK : DO YOU HAVE A PREVIOUS PERSONAL HISTORY OF MORE THAN NINE SURGERIES, SPINA BIFIDA, OR REPEATED CATHERIZATIONS? YES MONTHLY STEWART CATHETER - PLEASE INDICATE : > 9 SURGERIES, REPEATED CATHETERIZATIONS LATEX RISK : ARE YOU FREQUENTLY EXPOSED TO LATEX PRODUCTS IN YOUR OCCUPATION?NO CAFFEINE CAFFEINE USE?YES HOW OFTEN AND HOW MUCH? 1 SOFT DRINK ADVANCE DIRECTIVE ADVANCE DIRECTIVE DISCUSSED WITH PATIENT:YES HCP - STATES HE HAS HCP FOR NELY PAREKH- RASTAFARI NO ZOROASTRIANISM BELIEFS THAT WOULD IMPACT HEALTH CARE. MARITAL STATUS: . ALCOHOL SCREENING DID YOU HAVE A DRINK CONTAINING ALCOHOL IN THE PAST YEAR?NO POINTS0 INTERPRETATIONNEGATIVE OCCUPATION: DISABLED. REVIEWED WITH PATIENT 03/10/18 1155 JSREVIEWED WITH PT 04/02/18 1150 BVREVIEWED WITH PATIENT 06/29/18 1102 JSREVIEWED WITH PATIENT 09/27/18 1120 JS. HOSPITALIZATION/MAJOR DIAGNOSTIC PROCEDURE SURGERY RELATED C-DIFF INFECTION - [facility] NOVEMBER-DECEMBER 2017 REVIEW OF SYSTEMS REVIEWED BY: PROVIDER: JARED GARCIA . CONSTITUTIONAL: ANY CHANGE IN YOUR MEDICAL CONDITION? NO . CHILLS NO . FEVER NO . INFECTION: DO YOU HAVE NEW INFECTIONS? YES, INFECTION TO LEFT ANKLE, ON ABX . DO YOU HAVE HISTORY OF MRSA? YES . MUSCULOSKELETAL: ANY NEW PATTERNS OF PAIN OR NUMBNESS? NO . GASTROENTEROLOGY: ANY NEW CHANGE IN BOWEL CONTROL? NO . GENITOURINARY: ANY NEW CHANGE IN BLADDER CONTROL? NO . IS THERE A CHANCE YOU COULD BE ? NO . HEMATOLOGY/LYMPH: DO YOU TAKE ANY BLOOD THINNERS? (FOR EXAMPLE- COUMADIN, PLAVIX, AGGRENOX, PLATEL, PRADAXA, OR XARELTO) NO . WHEN WAS YOUR LAST DOSE? DATE: TIME: . NEUROLOGY: HAVE YOU FALLEN IN THE PAST 12 MONTHS? YES, PRIOR TO LAST VISIT . ANY NEW EXTREMITY NUMBNESS OR WEAKNESS? YES, LEGS ARE WEAKER . CARDIOLOGY: DO YOU HAVE A PACEMAKER OR DEFIBRILLATOR? NO . RESPIRATORY: HAVE YOU BEEN SICK IN THE PAST WEEK? NO . FEVER NO . FLU LIKE SYMPTOMS? NO . COUGH NO . INTEGUMENTARY: DO YOU HAVE ANY RASHES OR OPEN SORES? YES, LEFT ANKLE ON ABX . ALLERGIC/IMMUNO: ARE YOU ALLERGIC TO IV DYE? NO . ANY NEW ALLERGIES? NO . PSYCHIATRIC: DO YOU HAVE THOUGHTS OF HURTING YOURSELF OR SOMEONE ELSE? NO . ARE YOU ABUSED, NEGLECTED, OR IN AN UNSAFE ENVIRONMENT? NO . ENDOCRINOLOGY: ARE YOU DIABETIC? NO . OTHER: DO YOU NEED ANY PRESCRIPTIONS? NO . IF YES, PLEASE LIST: ____ . ANY NEW PROBLEMS WITH YOUR MEDICATIONS? NO . WHEN DID YOU LAST EAT? ____ . WHEN DID YOU LAST DRINK? ____ . WHAT DID YOU LAST DRINK? ____ . NAME OF PERSON DRIVING YOU HOME? ____ . DO YOU HAVE ANY OTHER QUESTIONS OR CONCERNS FLU VACCINE GOING TO RECEIVE FROM PCP . VITAL SIGNS WT 200 LBS, HT 74 IN, BMI 25.68 INDEX, BP 136/65 MM HG, HR 63 /MIN, RR 18 /MIN, TEMP 97.5 F, OXYGEN SAT % 96%, NA INITIALS AW 1141, REVIEWED BY: EM. EXAMINATION GENERAL EXAMINATION: LUNGS:LUNG SOUNDS ARE CLEAR. HEART:HEART RATE REGULAR. ASSESSMENTS POST LAMINECTOMY SYNDROME - M96.1 (PRIMARY) TREATMENT POST LAMINECTOMY SYNDROME REFILL LYRICA CAPSULE, 150 MG, 1 CAPSULE, ORALLY, BID MDD2, 30 DAYS, 60, REFILLS 5 CONTINUE OXYCONTIN TABLET ER 12 HOUR ABUSE-DETERRENT, 30 MG, 1 TABLET, ORALLY, Q12H BID MDD2 CONTINUE NEURONTIN TABLET, 600 MG, 1 TABLET, ORALLY, TID NOTES: ISTOP REGISTRY REVIEWED AND DEMONSTRATES COMPLLIANCE. BRINGS IN MEDICATIONS WHICH IS APPROPRIATE FOR WHAT WAS DISPENSED. RECENT URINE TOXICOLOGY REVIEWED. NO UNAUTHORIZED MEDICATIONS. NO ILLICIT SUBSTANCES AND PRESCRIBED MEDICATIONS WERE PRESENT. URINE TOX TODAY, RISKS OF NARCOTIC/OPIOD MEDICATIONS INCLUDES BUT IS NOT LIMITED TO RISK OF DEPENDANCE/DEVELOPMENT OF ADDICTION, MOOD DISTURBANCE AND DEPRESSION, OSTEOPOROSIS, HORMONAL AND LABIDAL CHANGES, RESPIRATORY DEPRESSION AND . PATIENT IS ADVISED NOT TO DRIVE OR DRINK ALCOHOL WHILE ON THESE MEDICATIONS. PROCEDURE CODES FA211 ESTABILISHED PATIENT [facility] CHARGE DISPOSITION & COMMUNICATION FOLLOW UP 3 MONTHS ELECTRONICALLY SIGNED BY RADHA PETE ON 04/12/2019 AT 03:33 PM EST DISCLAIMER : THIS IS A VISIT SUMMARY EXTRACTED FROM THE [employer] CHART. IT IS NOT A COPY OF THE [employer] PROGRESS NOTE. AVID
== END ==
LOC: M PAIN 11:30
PROVIDERS: ATTEND Nurse Practitioner Family
DX: M96.1 Postlaminectomy syndrome, not elsewhere classified (principal); Z86.14 Personal history of Methicillin resistant Staphylococcus aureus infection; Z87.891 Personal history of nicotine dependence; Z88.1 Allergy status to other antibiotic agents; Z79.891 Long term (current) use of opiate analgesic; Z79.899 Other long term (current) drug therapy

== ENCOUNTER 2019-04-23 05:26 | Emergency (ER) | payer MEDICARE ==
[~2019-04-23] VITALS: Ht 188 cm; Wt 95.5 kg
[2019-04-23 06:49] VITALS: BP 140/82
== END 2019-04-23 06:47 | disposition home or self-care (01) ==
LOC: M ED 05:26
DX: T83.091A Other mechanical complication of indwelling urethral catheter, initial encounter (principal); Z88.1 Allergy status to other antibiotic agents; Z79.83 Long term (current) use of bisphosphonates; Z79.891 Long term (current) use of opiate analgesic; Z79.899 Other long term (current) drug therapy

== ENCOUNTER → 2019-07-04 | Outpatient (CLI) | payer MEDICARE ==
--- NOTE | 2019-07-19 10:21 | ECWPNPC ---
PATIENT NAME: KAI PAREKH : 1945 GENDER: MALE VISIT DATE: 07/04/2019 DISCHARGE DATE: 07/04/19 1359 VISIT LOCKED DATE TIME: PHYSICIAN: JAERD MÉNDEZ RESOURCE: JRAED MÉNDEZ REASON FOR APPOINTMENT 1. MED MNGMT HISTORY OF PRESENT ILLNESS HISTORY OF PRESENT ILLNESS: HERE FOR MEDICINE MANAGEMENT FOR CHRONIC PAIN OF LOW BACK AND LOWER EXTREMITIES. RATING PAIN VAS 8/10.DENIES SIDE EFFECTS WITH MEDICATION.BRINGS IN MEDICATION THAT IS APPROPRIATE FOR WHAT WAS DISPENSED.CURRENTLY TAKING OXYCODONE ER 30MG IN AM AND 30MG IN PM.TAKING LYRICA 150MG BID,CLONAZEPAM AND GABAPENTIN. PAIN THE PATIENT DESCRIBES THE PAIN... FALL RISK SCREENING: SCREENING :NO FALLS REPORTED IN THE LAST YEAR CURRENT MEDICATIONS TAKING MULTI FOR HIM - TABLET 1 TAB ORALLY DAILY TAKING VITAMIN B-12 100 MCG TABLET ORALLY TAKING LYRICA 150 MG CAPSULE 1 CAPSULE ORALLY BID MDD2 TAKING NEURONTIN 600 MG TABLET 1 TABLET ORALLY TID TAKING OXYCONTIN 30 MG TABLET ER 12 HOUR ABUSE-DETERRENT 1 TABLET ORALLY Q12H BID MDD2 TAKING CLONAZEPAM 0.5 MG TABLET 1 TABLET AT BEDTIME ORALLY Q8H PRN MDD3 NOT-TAKING CIPRO 500 MG TABLET 1 TABLET ORALLY EVERY 12 HRS NOT-TAKING FISH OIL 1000 MG CAPSULE 1 CAPSULE ORALLY ONCE A DAY NOT-TAKING NYSTATIN [id number] UNIT/GM CREAM 1 APPLICATION TO FORESKIN EXTERNALLY TWICE A DAY NOT-TAKING KLONOPIN 0.5 MG TABLET 1 TABLET AT BEDTIME ORALLY TID, NOTES: DUPLICATE NOT-TAKING BACTRIM DS 800-160 MG TABLET 1 TABLET ORALLY TWICE A DAY NOT-TAKING OXYBUTYNIN CHLORIDE 5 MG TABLET 1 TABLET ORALLY TWICE A DAY NOT-TAKING FLUCONAZOLE 200 MG TABLET 1 TABLET ORALLY ONCE A DAY NOT-TAKING SULFAMETHOXAZOLE-TRIMETHOPRIM 800-160 MG TABLET 1 TABLET ORALLY TWICE A DAY NOT-TAKING AMPICILLIN 500 MG CAPSULE 1 CAPSULE 1 HOUR BEFORE OR 2 HOURS AFTER A MEAL ORALLY EVERY 6 HRS MEDICATION LIST REVIEWED AND RECONCILED WITH THE PATIENT PAST MEDICAL HISTORY HX OF PRESSURE ULCER RIGHT LATERAL MALLEOLUS CHRONIC BACK PAIN NEUROPATHIC CHARCOT FOOT HX MRSA RIGHT FOOT URINARY RETENTION FROM BACK SURGURY CHRONIC NEUROPATHY WITH WITH CHRONICLOWER EXTREMITY WEAKNESS BACK SURGERY 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 SOCIAL HISTORY GENERAL: TOBACCO USE ARE YOU A:FORMER SMOKER FORMER SMOKER AGE 31 HE QUIT HOW LONG HAS IT BEEN SINCE YOU LAST SMOKED?> 10 YEARS ADDITIONAL FINDINGS: TOBACCO USER NO ADDITIONAL FINDINGS: TOBACCO NON-USERCURRENT NON-SMOKER VAPORNO E-CIGARETTENO HIV / HEP-C SCREENING HIV TEST OFFERED TO PATIENT:YES DATE OFFERED:07/16/2016 TEST ACCEPTED:NO HEP-C TEST OFFERED TO PATIENT:YES DATE OFFERED:07/16/2016 REASON:PATIENT DECLINED TEST ACCEPTED:NO REASON:PATIENT DECLINED EDUCATION LEVEL OF EDUCATION:FINISHED HIGH SCHOOL DIET: REGULAR. LANGUAGE KYRGYZ. DOMESTIC VIOLENCE STATUS: DO YOU FEEL SAFE IN YOUR ENVIRONMENT?YES RECREATIONAL DRUG USE DRUG USE?NO PATIENT DENIES ABUSE OR MISSUSED OF ANY MEDICATION. PATIENT DENIES USE OF ANY ILLEGAL SUBSTANCE INCLUDING MARIJUANA OR COCAINE. EXERCISE: NONE. 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?NO LUNG CANCER SCREENING SMOKING STATUS:FORMER SMOKER IS THE PATIENT BETWEEN THE AGE OF 54 AND 76?YES HAVE YOU QUIT SMOKING WITHIN THE PAST 15 YEARS?YES PAIN CLINIC PFS, CLERGY, PUBLIC HEALTH REFERRALS PFS REFERRAL NEEDED?NO CLERGY REFERRAL NEEDED?NO PUBLIC HEALTH REFERRAL NEEDED?NO WAS THE PROVIDER NOTIFIED OF ANY PERTINENT INFO?NO HAS THE PATIENT BEEN EDUCATED REGARDING HIS/HER PLAN OF CARE?YES HAS THE PATIENT BEEN EDUCATED REGARDING PAIN, THE RISK FOR PAIN, THE IMPORTANCE OF EFFECTIVE PAIN MANAGEMENT, AND THE PAIN ASSESSMENT PROCESS?YES LATEX QUESTIONNAIRE LATEX ALLERGY : HAVE YOU EVER DEVELOPED ANY TYPE OF REACTION AFTER HANDLING LATEX PRODUCTS SUCH RUBBER GLOVES, CONDOMS, DIAPHRAGMS, BALLOONS, SOCKS, OR UNDERWEAR?NO LATEX ALLERGY : HAVE YOU EVER DEVELOPED ANY TYPE OF REACTION DURING OR AFTER DENTAL APPOINTMENT, VAGINAL/RECTAL EXAMINATION, SURGICAL PROCEDURE, OR ANY OTHER EXPOSURE?NO LATEX RISK : HAVE YOU EVER HAD ANY DIFFICULTY BREATHING OR HIVES AFTER EATING OR HANDLING ANY FRUITS, OR VEGETABLES; SUCH KIWI, BANANAS, STONE FRUITS, OR CHESTNUTSNO LATEX RISK : DO YOU HAVE A PREVIOUS PERSONAL HISTORY OF MORE THAN NINE SURGERIES, SPINA BIFIDA, OR REPEATED CATHERIZATIONS? YES - PLEASE INDICATE : > 9 SURGERIES, REPEATED CATHETERIZATIONS INDWELLIG STEWART LATEX RISK : ARE YOU FREQUENTLY EXPOSED TO LATEX PRODUCTS IN YOUR OCCUPATION?NO DATE ASKED : 06/03/2019 CAFFEINE CAFFEINE USE?YES HOW OFTEN AND HOW MUCH? 1 SOFT DRINK ADVANCE DIRECTIVE ADVANCE DIRECTIVE DISCUSSED WITH PATIENT:YES HCP - STATES HE HAS HCP FOR NELY PAREKH- ORTHODOXY NO FAITH BELIEFS THAT WOULD IMPACT HEALTH CARE. MARITAL STATUS: . ALCOHOL SCREENING DID YOU HAVE A DRINK CONTAINING ALCOHOL IN THE PAST YEAR?NO POINTS0 INTERPRETATIONNEGATIVE OCCUPATION: DISABLED. REVIEWED WITH PATIENT 03/10/18 1155 JSREVIEWED WITH PT 04/02/18 1150 BVREVIEWED WITH PATIENT 06/29/18 1102 JSREVIEWED WITH PATIENT 09/27/18 1120 JSREVIEWED WITH PATIENT 07/04/2019 1316 JS. HOSPITALIZATION/MAJOR DIAGNOSTIC PROCEDURE SURGERY RELATED C-DIFF INFECTION - [facility] NOVEMBER-DECEMBER 2017 REVIEW OF SYSTEMS REVIEWED BY: PROVIDER: JARED GARCIA . CONSTITUTIONAL: ANY CHANGE IN YOUR MEDICAL CONDITION? NO . CHILLS NO . FEVER NO . INFECTION: DO YOU HAVE NEW INFECTIONS? NO . DO YOU HAVE HISTORY OF MRSA? YES, HX OF MRSA IN WOUND, POSSIBLY ON FOOT . MUSCULOSKELETAL: ANY NEW PATTERNS OF PAIN OR NUMBNESS? NO . GASTROENTEROLOGY: ANY NEW CHANGE IN BOWEL CONTROL? NO . GENITOURINARY: ANY NEW CHANGE IN BLADDER CONTROL? NO . IS THERE A CHANCE YOU COULD BE ? NO . HEMATOLOGY/LYMPH: DO YOU TAKE ANY BLOOD THINNERS? (FOR EXAMPLE- COUMADIN, PLAVIX, AGGRENOX, PLATEL, PRADAXA, OR XARELTO) NO . WHEN WAS YOUR LAST DOSE? DATE: TIME: . NEUROLOGY: HAVE YOU FALLEN IN THE PAST 12 MONTHS? YES, STATES PRIOR TO PREVIOUS VISIT, DISCUSSED PREVIOUSLY . ANY NEW EXTREMITY NUMBNESS OR WEAKNESS? YES, WEAKNESS TO BILATERAL LEGS AND PAIN . CARDIOLOGY: DO YOU HAVE A PACEMAKER OR DEFIBRILLATOR? NO . RESPIRATORY: HAVE YOU BEEN SICK IN THE PAST WEEK? NO . FEVER NO . FLU LIKE SYMPTOMS? NO . COUGH NO . INTEGUMENTARY: DO YOU HAVE ANY RASHES OR OPEN SORES? YES, OPEN BLISTER TO LEFT INNER FOOT AND SCAB TO RIGHT FOOT . ALLERGIC/IMMUNO: ARE YOU ALLERGIC TO IV DYE? NO . ANY NEW ALLERGIES? NO . PSYCHIATRIC: DO YOU HAVE THOUGHTS OF HURTING YOURSELF OR SOMEONE ELSE? NO . ARE YOU ABUSED, NEGLECTED, OR IN AN UNSAFE ENVIRONMENT? NO . ENDOCRINOLOGY: ARE YOU DIABETIC? NO . OTHER: DO YOU NEED ANY PRESCRIPTIONS? YES . IF YES, PLEASE LIST: ____LYRICA . ANY NEW PROBLEMS WITH YOUR MEDICATIONS? NO . WHEN DID YOU LAST EAT? ____ . WHEN DID YOU LAST DRINK? ____ . WHAT DID YOU LAST DRINK? ____ . NAME OF PERSON DRIVING YOU HOME? ____ . DO YOU HAVE ANY OTHER QUESTIONS OR CONCERNS NO . VITAL SIGNS WT 200 LBS, HT 74 IN, BMI 25.68 INDEX, BP 131/63 MM HG, HR 69 /MIN, RR 18 /MIN, TEMP 97.9 F, OXYGEN SAT % 98%, SAFE IN ENV? (Y/N) YES, NA INITIALS AW 1313, REVIEWED BY: VIKY. EXAMINATION GENERAL EXAMINATION: LUNGS:LUNG SOUNDS ARE CLEAR. HEART:HEART RATE REGULAR. 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 BRINGS IN MEDICATIONS WHICH IS APPROPRIATE FOR WHAT WAS DISPENSED. RECENT URINE TOXICOLOGY REVIEWED. NO UNAUTHORIZED MEDICATIONS. NO ILLICIT SUBSTANCES AND PRESCRIBED MEDICATIONS WERE PRESENT. , RISKS OF NARCOTIC/OPIOD MEDICATIONS INCLUDES BUT IS NOT LIMITED TO RISK OF DEPENDANCE/DEVELOPMENT OF ADDICTION, MOOD DISTURBANCE AND DEPRESSION, OSTEOPOROSIS, HORMONAL AND LABIDAL CHANGES, RESPIRATORY DEPRESSION AND . PATIENT IS ADVISED NOT TO DRIVE OR DRINK ALCOHOL WHILE ON THESE MEDICATIONS. PROCEDURE CODES FA211 ESTABILISHED PATIENT [facility] CHARGE DISPOSITION & COMMUNICATION FOLLOW UP 3 MONTHS (REASON: MED MGMNT) ELECTRONICALLY SIGNED BY RADHA PETE ON 07/18/2019 AT 03:50 PM EST DISCLAIMER : THIS IS A VISIT SUMMARY EXTRACTED FROM THE [employer] CHART. IT IS NOT A COPY OF THE [employer] PROGRESS NOTE. RUDY
== END ==
LOC: M PAIN 13:00
PROVIDERS: ATTEND Nurse Practitioner Family
DX: M96.1 Postlaminectomy syndrome, not elsewhere classified (principal); Z79.891 Long term (current) use of opiate analgesic; Z79.899 Other long term (current) drug therapy; Z87.891 Personal history of nicotine dependence; Z88.1 Allergy status to other antibiotic agents

== ENCOUNTER → 2019-10-03 | Outpatient (CLI) | payer MEDICARE ==
[~2019-10-03] MED LIST changes: +OXYC30TA PO; -OXYC30TA84 PO; +VITA-243 PO; -VITA500T PO
--- NOTE | 2019-10-05 05:00 | ECWPNPC ---
PATIENT NAME: KAI PAREKH : 1945 GENDER: MALE VISIT DATE: 10/03/2019 DISCHARGE DATE: 10/03/19 1239 VISIT LOCKED DATE TIME: PHYSICIAN: JARED MÉNDEZ RESOURCE: JARED MÉNDEZ REASON FOR APPOINTMENT 1. 3 MONTHS [phone] PAT COMPLETED HISTORY OF PRESENT ILLNESS HISTORY OF PRESENT ILLNESS: PATIENT IS AGREEABLE TO TELEPHONE VISIT TODAY DUE TO COVID 19 CRISIS. RATING PAIN VAS 4/10. PAIN IS ACROSS LOW BACK AND INTO BOTH LEGS. FEELS PAIN IN HIS LEGS HAS GOTTEN WORSE OVER THE PAST YEAR. FINDS CURRENT CHRONIC PAIN MEDICATION EFFECTIVE AT REDUCING PAIN AND KEEPING HIM FUNCTIONAL. REPORTING NORMAL SLEEP AT NIGHT. PAIN THE PATIENT DESCRIBES THE PAIN... FALL RISK SCREENING: SCREENING :NO FALLS REPORTED IN THE LAST YEAR CURRENT MEDICATIONS TAKING MULTI FOR HIM - TABLET 1 TAB ORALLY DAILY TAKING LYRICA 150 MG CAPSULE 1 CAPSULE ORALLY BID MDD2 TAKING CLONAZEPAM 0.5 MG TABLET 1 TABLET AT BEDTIME ORALLY Q8H PRN MDD3 TAKING OXYCONTIN 30 MG TABLET ER 12 HOUR ABUSE-DETERRENT 1 TABLET ORALLY Q12H BID MDD2 TAKING NEURONTIN 600 MG TABLET 1 TABLET ORALLY TID NOT-TAKING VITAMIN B-12 100 MCG TABLET ORALLY NOT-TAKING CIPRO 500 MG TABLET 1 TABLET ORALLY EVERY 12 HRS NOT-TAKING FISH OIL 1000 MG CAPSULE 1 CAPSULE ORALLY ONCE A DAY NOT-TAKING NYSTATIN [id number] UNIT/GM CREAM 1 APPLICATION TO FORESKIN EXTERNALLY TWICE A DAY NOT-TAKING KLONOPIN 0.5 MG TABLET 1 TABLET AT BEDTIME ORALLY TID, NOTES: DUPLICATE NOT-TAKING BACTRIM DS 800-160 MG TABLET 1 TABLET ORALLY TWICE A DAY NOT-TAKING OXYBUTYNIN CHLORIDE 5 MG TABLET 1 TABLET ORALLY TWICE A DAY NOT-TAKING FLUCONAZOLE 200 MG TABLET 1 TABLET ORALLY ONCE A DAY NOT-TAKING SULFAMETHOXAZOLE-TRIMETHOPRIM 800-160 MG TABLET 1 TABLET ORALLY TWICE A DAY NOT-TAKING AMPICILLIN 500 MG CAPSULE 1 CAPSULE 1 HOUR BEFORE OR 2 HOURS AFTER A MEAL ORALLY EVERY 6 HRS MEDICATION LIST REVIEWED AND RECONCILED WITH THE PATIENT PAST MEDICAL HISTORY HX OF PRESSURE ULCER RIGHT LATERAL MALLEOLUS CHRONIC BACK PAIN NEUROPATHIC CHARCOT FOOT HX MRSA RIGHT FOOT URINARY RETENTION FROM BACK SURGURY CHRONIC NEUROPATHY WITH WITH CHRONICLOWER EXTREMITY WEAKNESS BACK SURGERY 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 SOCIAL HISTORY GENERAL: TOBACCO USE ARE YOU A:FORMER SMOKER FORMER SMOKER AGE 31 HE QUIT HOW LONG HAS IT BEEN SINCE YOU LAST SMOKED?> 10 YEARS ADDITIONAL FINDINGS: TOBACCO USER NO ADDITIONAL FINDINGS: TOBACCO NON-USERCURRENT NON-SMOKER VAPORNO E-CIGARETTENO LATEX QUESTIONNAIRE LATEX ALLERGY : HAVE YOU EVER DEVELOPED ANY TYPE OF REACTION AFTER HANDLING LATEX PRODUCTS SUCH RUBBER GLOVES, CONDOMS, DIAPHRAGMS, BALLOONS, SOCKS, OR UNDERWEAR?NO LATEX ALLERGY : HAVE YOU EVER DEVELOPED ANY TYPE OF REACTION DURING OR AFTER DENTAL APPOINTMENT, VAGINAL/RECTAL EXAMINATION, SURGICAL PROCEDURE, OR ANY OTHER EXPOSURE?NO DATE ASKED : 09/01/2019 LATEX RISK : HAVE YOU EVER HAD ANY DIFFICULTY BREATHING OR HIVES AFTER EATING OR HANDLING ANY FRUITS, OR VEGETABLES; SUCH KIWI, BANANAS, STONE FRUITS, OR CHESTNUTSNO LATEX RISK : DO YOU HAVE A PREVIOUS PERSONAL HISTORY OF MORE THAN NINE SURGERIES, SPINA BIFIDA, OR REPEATED CATHERIZATIONS? YES - PLEASE INDICATE : > 9 SURGERIES, REPEATED CATHETERIZATIONS INDWELLING STEWART LATEX RISK : ARE YOU FREQUENTLY EXPOSED TO LATEX PRODUCTS IN YOUR OCCUPATION?NO LUNG CANCER SCREENING SMOKING STATUS:FORMER SMOKER IS THE PATIENT BETWEEN THE AGE OF 54 AND 76?YES HAVE YOU QUIT SMOKING WITHIN THE PAST 15 YEARS?YES ALCOHOL SCREENING DID YOU HAVE A DRINK CONTAINING ALCOHOL IN THE PAST YEAR?NO POINTS0 INTERPRETATIONNEGATIVE RECREATIONAL DRUG USE DRUG USE?NO PATIENT DENIES ABUSE OR MISSUSED OF ANY MEDICATION. PATIENT DENIES USE OF ANY ILLEGAL SUBSTANCE INCLUDING MARIJUANA OR COCAINE. CAFFEINE CAFFEINE USE?YES HOW OFTEN AND HOW MUCH? 1 SOFT DRINK HIV / HEP-C SCREENING HIV TEST OFFERED TO PATIENT:YES DATE OFFERED:07/16/2016 TEST ACCEPTED:NO HEP-C TEST OFFERED TO PATIENT:YES DATE OFFERED:07/16/2016 REASON:PATIENT DECLINED TEST ACCEPTED:NO REASON:PATIENT DECLINED SABIANIST NO LATTER-DAY BELIEFS THAT WOULD IMPACT HEALTH CARE. LANGUAGE KAZAKH. 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 DIET: REGULAR. EXERCISE: NONE. MARITAL STATUS: . NEW PATIENT PAIN DIARY TODAY'S VISIT 09/30/19 PATIENT DESCRIBES PAIN :ACHING, IT COMES AND GOES, THROBBING FROM 0-10, WHAT LEVEL IS YOUR PAIN TODAY?4 PRECIPITATING FACTORS WORSE LATE IN DAY ALLEVIATING FACTORS PAIN MEDICATION PAIN CLINIC PFS, CLERGY, PUBLIC HEALTH REFERRALS PFS REFERRAL NEEDED?NO CLERGY REFERRAL NEEDED?NO PUBLIC HEALTH REFERRAL NEEDED?NO WAS THE PROVIDER NOTIFIED OF ANY PERTINENT INFO?NO HAS THE PATIENT BEEN EDUCATED REGARDING HIS/HER PLAN OF CARE?YES HAS THE PATIENT BEEN EDUCATED REGARDING PAIN, THE RISK FOR PAIN, THE IMPORTANCE OF EFFECTIVE PAIN MANAGEMENT, AND THE PAIN ASSESSMENT PROCESS?YES ADVANCE DIRECTIVE ADVANCE DIRECTIVE DISCUSSED WITH PATIENT:YES HCP - STATES HE HAS HCP FOR NELY PAREKH- HOSPITALIZATION/MAJOR DIAGNOSTIC PROCEDURE SURGERY RELATED C-DIFF INFECTION - [facility] NOVEMBER-DECEMBER 2017 REVIEW OF SYSTEMS REVIEWED BY: PROVIDER: JARED GARCIA . CONSTITUTIONAL: ANY CHANGE IN YOUR MEDICAL CONDITION? NO . CHILLS NO . FEVER NO . INFECTION: DO YOU HAVE NEW INFECTIONS? NO . DO YOU HAVE HISTORY OF MRSA? NO . MUSCULOSKELETAL: ANY NEW PATTERNS OF PAIN OR NUMBNESS? GOTTEN WORSE . GENITOURINARY: ANY NEW CHANGE IN BLADDER CONTROL? HAS A CATHETER . IS THERE A CHANCE YOU COULD BE ? NO . HEMATOLOGY/LYMPH: DO YOU TAKE ANY BLOOD THINNERS? (FOR EXAMPLE- COUMADIN, PLAVIX, AGGRENOX, PLATEL, PRADAXA, OR XARELTO) NO . WHEN WAS YOUR LAST DOSE? DATE: TIME: . NEUROLOGY: HAVE YOU FALLEN IN THE PAST 12 MONTHS? NO RECENT . ANY NEW EXTREMITY NUMBNESS OR WEAKNESS? NO . CARDIOLOGY: DO YOU HAVE A PACEMAKER OR DEFIBRILLATOR? NO . RESPIRATORY: HAVE YOU BEEN SICK IN THE PAST WEEK? NO . FEVER NO . FLU LIKE SYMPTOMS? NO . COUGH NO . INTEGUMENTARY: DO YOU HAVE ANY RASHES OR OPEN SORES? NO . ALLERGIC/IMMUNO: ARE YOU ALLERGIC TO IV DYE? NO . ANY NEW ALLERGIES? NO . PSYCHIATRIC: DO YOU HAVE THOUGHTS OF HURTING YOURSELF OR SOMEONE ELSE? NO . ARE YOU ABUSED, NEGLECTED, OR IN AN UNSAFE ENVIRONMENT? NO . ENDOCRINOLOGY: ARE YOU DIABETIC? NO . OTHER: DO YOU NEED ANY PRESCRIPTIONS? NO . IF YES, PLEASE LIST: ____ . ANY NEW PROBLEMS WITH YOUR MEDICATIONS? NO . WHEN DID YOU LAST EAT? ____ . WHEN DID YOU LAST DRINK? ____ . WHAT DID YOU LAST DRINK? ____ . NAME OF PERSON DRIVING YOU HOME? ____ . DO YOU HAVE ANY OTHER QUESTIONS OR CONCERNS NO . 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 RECENT URINE TOXICOLOGY REVIEWED. NO UNAUTHORIZED MEDICATIONS. NO ILLICIT SUBSTANCES AND PRESCRIBED MEDICATIONS WERE PRESENT. TIME SPENT DURING TELEMED VISIT WAS APPROXIMATELY 12 MINUTES. . OTHERS NOTES: NO VITAL SIGNS TAKEN, THIS IS A VIRTUAL/TELEPHONE VISIT. DISPOSITION & COMMUNICATION FOLLOW UP 3 MONTHS (REASON: MED MGMNT) ELECTRONICALLY SIGNED BY RADHA PETE ON 10/04/2019 AT 02:12 PM EDT DISCLAIMER : THIS IS A VISIT SUMMARY EXTRACTED FROM THE [employer] CHART. IT IS NOT A COPY OF THE [employer] PROGRESS NOTE. RUDY
== END ==
LOC: M PAIN 13:00
PROVIDERS: ATTEND Nurse Practitioner Family
DX: M96.1 Postlaminectomy syndrome, not elsewhere classified (principal); Z86.14 Personal history of Methicillin resistant Staphylococcus aureus infection; Z87.891 Personal history of nicotine dependence; Z88.1 Allergy status to other antibiotic agents; Z79.891 Long term (current) use of opiate analgesic; Z79.899 Other long term (current) drug therapy

== ENCOUNTER 2020-01-30 11:15 | Emergency (ER) | payer MEDICARE ==
[~2020-01-30] VITALS: Ht 190.5 cm; Wt 100.0 kg
[2020-01-30] MEDS ORDERED: GABA600T4 (11:27)
[2020-01-30] MEDS ORDERED: PREG150C (11:27)
[2020-01-30] MEDS ORDERED: OXYC30TA72 (11:27)
[2020-01-30] MEDS ORDERED: CLON0.5T2 (11:27)
[2020-01-30 13:45] LABS: BASO % 0.2 % (0.0-1.0); HEMATOCRIT 35.2 % (42.0-52.0); HEMOGLOBIN 11.6 g/dl (13.5-17.5); LYMPH # 1.3 10^3/uL (1.5-5.0); MEAN CORPUSCULAR HEMOGLOBIN 31.2 pg (27.0-33.0); MEAN CORPUSCULAR VOLUME 94.6 fl (80.0-96.0); MONO # 1.2 10^3/uL (0.0-0.8); MONO % 10.8 % (0.0-5.0); NEUTROPHILS # 8.1 10^3/uL (1.5-8.5); NEUTROPHILS % 76.6 % (36.0-66.0); PLATELET COUNT, AUTOMATED 201 10^3/uL (150-450); RED BLOOD COUNT 3.72 10^6/uL (4.30-6.10); WHITE BLOOD COUNT 10.6 10^3/uL (4.0-10.0)
[2020-01-30 14:05] LABS: ALBUMIN 3.2 GM/DL (3.2-5.2); ALT/SGPT 24 U/L (12-78); BILIRUBIN,TOTAL 1.1 MG/DL (0.2-1.0); BLOOD UREA NITROGEN 21 MG/DL (7-18); CALCIUM LEVEL 8.6 MG/DL (8.8-10.2); CARBON DIOXIDE LEVEL 29 MEQ/L (21-32); CHLORIDE LEVEL 108 MEQ/L (98-107); CK-MB VALUE MASS 1.6 NG/ML (<3.6); CPK CREATINE PHOSPHOKINASE 152 U/L (39-308); CREATININE FOR GFR 0.74 MG/DL (0.70-1.30); GLOMERULAR FILTRATION RATE > 60.0 (>42); GLUCOSE, FASTING 98 MG/DL (70-100); MB/CK RELATIVE INDEX 1.05 (< OR =4); NT-PRO BNP 123 PG/ML (<450); POTASSIUM SERUM 4.6 MEQ/L (3.5-5.1); SODIUM LEVEL 143 MEQ/L (136-145); TOTAL PROTEIN 6.5 GM/DL (6.4-8.2); TROPONIN I < 0.02 NG/ML (< 0.10)
[2020-01-30 15:47] VITALS: BP 120/55
--- NOTE | 2020-02-14 14:42 | ECGEPIP ---
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
--- NOTE | 2020-02-27 07:05 | REP ---
PORTABLE CHEST X-RAY CLINICAL: Trauma. Fall. COMPARISON: 12/21/2017. FINDINGS: Mediastinal and cardiac silhouette are normal. Lung gonzalez are clear. No focal consolidation, effusion, or pneumothorax. Skeletal structures are intact. IMPRESSION: Normal stable portable chest x-ray. MTDD
--- NOTE | 2020-02-27 07:06 | REP ---
RIGHT FEMUR SERIES CLINICAL: Trauma. Fall. TECHNIQUE: AP and cross-table lateral views of the mid to distal femur. FINDINGS: There is a comminuted displaced fracture of the distal femoral metadiaphysis. IMPRESSION: Comminuted displaced fracture of the distal femoral metadiaphysis. MTDD
--- NOTE | 2020-02-27 07:06 | REP ---
PELVIS AND RIGHT HIP SERIES CLINICAL: Trauma, fall. TECHNIQUE: Frontal view of the pelvis with neutral and cross table lateral views of the right hip. FINDINGS: Age-related osteopenia and degenerative changes are appropriated. Chronic changes along the left iliac wing are suggested. No definite acute fracture appreciated. Rowley catheter noted. IMPRESSION: * Suspected chronic lytic changes along the left iliac wing. * Osteopenia and degenerative changes. * No definite acute fracture. If the patient remains symptomatic, consider pelvis/hip CT for further investigation. MTDD
--- NOTE | 2020-02-27 07:07 | REP ---
RIGHT KNEE SERIES CLINICAL: Trauma. Fall. TECHNIQUE: Three views of the right knee. FINDINGS: There is a comminuted fracture involving the distal femoral metadiaphysis with overlying soft tissue swelling. Underlying age-related osteopenia and degenerative changes are appreciated. IMPRESSION: Comminuted displaced fracture of the distal femoral metadiaphysis. MTDD
== END 2020-01-30 15:51 | disposition short-term general hospital (02) ==
LOC: EDBD 11:15 → M ED 11:15
DX: S72.401A Unspecified fracture of lower end of right femur, initial encounter for closed fracture (principal); W05.0XXA Fall from non-moving wheelchair, initial encounter; Y92.9 Unspecified place or not applicable; Z11.59 Encounter for screening for other viral diseases; M16.11 Unilateral primary osteoarthritis, right hip; M85.88 Other specified disorders of bone density and structure, other site; Z88.8 Allergy status to other drugs, medicaments and biological substances; Z79.899 Other long term (current) drug therapy
CPT/HCPCS: 36415; 71045; 73502; 73552; 73564; 80053; 82550; 82553; 83880; 84484; 85025; 86850; 86900; 86901; 93005; 99284; U0002

== ENCOUNTER → 2020-02-20 | Outpatient (REF) ==
[~2020-02-20] MED LIST changes: +CLON0.5T2; +GABA600T4; +LEVO500T3 PO; +OXYC30TA72; +PREG150C
[2020-02-20 10:06] LABS: HEMATOCRIT 42.3 % (42.0-52.0); HEMOGLOBIN 13.4 g/dl (13.5-17.5); MEAN CORPUSCULAR HEMOGLOBIN 32.2 pg (27.0-33.0); MEAN CORPUSCULAR HGB CONC 31.7 g/dl (32.0-36.5); MEAN CORPUSCULAR VOLUME 101.7 fl (80.0-96.0); PLATELET COUNT, AUTOMATED 169 10^3/uL (150-450); RED BLOOD COUNT 4.16 10^6/uL (4.30-6.10); WHITE BLOOD COUNT 8.2 10^3/uL (4.0-10.0)
[2020-02-20 10:27] LABS: BLOOD UREA NITROGEN 24 MG/DL (7-18); CALCIUM LEVEL 8.5 MG/DL (8.8-10.2); CARBON DIOXIDE LEVEL 28 MEQ/L (21-32); CHLORIDE LEVEL 106 MEQ/L (98-107); CREATININE FOR GFR 0.71 MG/DL (0.70-1.30); GLOMERULAR FILTRATION RATE > 60.0 (>42); GLUCOSE, FASTING 99 MG/DL (70-100); POTASSIUM SERUM 4.1 MEQ/L (3.5-5.1); SODIUM LEVEL 141 MEQ/L (136-145)
== END ==
PROVIDERS: ATTEND Internal Medicine
DX: E87.79 Other fluid overload (principal)

== ENCOUNTER → 2020-03-06 | Outpatient (REF) ==
[2020-03-06 10:46] LABS: HEMATOCRIT 41.3 % (42.0-52.0); HEMOGLOBIN 12.8 g/dl (13.5-17.5); MEAN CORPUSCULAR HEMOGLOBIN 30.8 pg (27.0-33.0); MEAN CORPUSCULAR VOLUME 99.3 fl (80.0-96.0); PLATELET COUNT, AUTOMATED 380 10^3/uL (150-450); RED BLOOD COUNT 4.16 10^6/uL (4.30-6.10); WHITE BLOOD COUNT 10.1 10^3/uL (4.0-10.0)
[2020-03-06 11:17] LABS: BLOOD UREA NITROGEN 19 MG/DL (7-18); CALCIUM LEVEL 8.8 MG/DL (8.8-10.2); CARBON DIOXIDE LEVEL 34 MEQ/L (21-32); CHLORIDE LEVEL 99 MEQ/L (98-107); CREATININE FOR GFR 0.59 MG/DL (0.70-1.30); GLOMERULAR FILTRATION RATE > 60.0 (>42); GLUCOSE, FASTING 80 MG/DL (70-100); POTASSIUM SERUM 4.1 MEQ/L (3.5-5.1); SODIUM LEVEL 138 MEQ/L (136-145)
== END ==
PROVIDERS: ATTEND Internal Medicine
DX: I10 Essential (primary) hypertension (principal)

== ENCOUNTER → 2020-03-13 | Outpatient (REF) | payer MEDICARE ==
[~2020-03-13] MED LIST changes: -LEVO500T3 PO
[2020-03-13 11:53] LABS: HEMATOCRIT 45.8 % (42.0-52.0); HEMOGLOBIN 13.9 g/dl (13.5-17.5); MEAN CORPUSCULAR HEMOGLOBIN 30.5 pg (27.0-33.0); MEAN CORPUSCULAR HGB CONC 30.3 g/dl (32.0-36.5); MEAN CORPUSCULAR VOLUME 100.4 fl (80.0-96.0); PLATELET COUNT, AUTOMATED 288 10^3/uL (150-450); RED BLOOD COUNT 4.56 10^6/uL (4.30-6.10); WHITE BLOOD COUNT 9.4 10^3/uL (4.0-10.0)
[2020-03-13 12:22] LABS: BLOOD UREA NITROGEN 25 MG/DL (7-18); CALCIUM LEVEL 9.4 MG/DL (8.8-10.2); CARBON DIOXIDE LEVEL 34 MEQ/L (21-32); CHLORIDE LEVEL 102 MEQ/L (98-107); CREATININE FOR GFR 0.73 MG/DL (0.70-1.30); GLOMERULAR FILTRATION RATE > 60.0 (>42); GLUCOSE, FASTING 84 MG/DL (70-100); POTASSIUM SERUM 3.9 MEQ/L (3.5-5.1); SODIUM LEVEL 142 MEQ/L (136-145)
== END ==
PROVIDERS: ATTEND Internal Medicine
DX: I10 Essential (primary) hypertension (principal)

== ENCOUNTER → 2020-03-21 | Outpatient (REF) | payer MEDICARE ==
[2020-03-21 10:04] LABS: HEMATOCRIT 38.8 % (42.0-52.0); HEMOGLOBIN 11.9 g/dl (13.5-17.5); MEAN CORPUSCULAR HEMOGLOBIN 30.4 pg (27.0-33.0); MEAN CORPUSCULAR HGB CONC 30.7 g/dl (32.0-36.5); PLATELET COUNT, AUTOMATED 288 10^3/uL (150-450); RED BLOOD COUNT 3.92 10^6/uL (4.30-6.10); WHITE BLOOD COUNT 6.7 10^3/uL (4.0-10.0)
[2020-03-21 10:27] LABS: BLOOD UREA NITROGEN 25 MG/DL (7-18); CALCIUM LEVEL 8.8 MG/DL (8.8-10.2); CARBON DIOXIDE LEVEL 32 MEQ/L (21-32); CHLORIDE LEVEL 102 MEQ/L (98-107); CREATININE FOR GFR 0.79 MG/DL (0.70-1.30); GLOMERULAR FILTRATION RATE > 60.0 (>42); GLUCOSE, FASTING 125 MG/DL (70-100); POTASSIUM SERUM 3.8 MEQ/L (3.5-5.1); SODIUM LEVEL 140 MEQ/L (136-145)
== END ==
PROVIDERS: ATTEND Internal Medicine
DX: I10 Essential (primary) hypertension (principal)

== ENCOUNTER → 2020-03-27 | Outpatient (REF) | payer MEDICARE ==
[2020-03-27 10:27] LABS: HEMATOCRIT 37.9 % (42.0-52.0); HEMOGLOBIN 11.5 g/dl (13.5-17.5); MEAN CORPUSCULAR HEMOGLOBIN 29.6 pg (27.0-33.0); MEAN CORPUSCULAR HGB CONC 30.3 g/dl (32.0-36.5); MEAN CORPUSCULAR VOLUME 97.4 fl (80.0-96.0); PLATELET COUNT, AUTOMATED 352 10^3/uL (150-450); RED BLOOD COUNT 3.89 10^6/uL (4.30-6.10); WHITE BLOOD COUNT 7.4 10^3/uL (4.0-10.0)
[2020-03-27 10:47] LABS: BLOOD UREA NITROGEN 20 MG/DL (7-18); CALCIUM LEVEL 8.6 MG/DL (8.8-10.2); CARBON DIOXIDE LEVEL 33 MEQ/L (21-32); CHLORIDE LEVEL 103 MEQ/L (98-107); CREATININE FOR GFR 0.73 MG/DL (0.70-1.30); GLOMERULAR FILTRATION RATE > 60.0 (>42); GLUCOSE, FASTING 100 MG/DL (70-100); POTASSIUM SERUM 4.2 MEQ/L (3.5-5.1); SODIUM LEVEL 142 MEQ/L (136-145)
== END ==
PROVIDERS: ATTEND Internal Medicine
DX: I10 Essential (primary) hypertension (principal)

== ENCOUNTER 2020-04-03 16:15 | Emergency (ER) | payer MEDICARE ==
[~2020-04-03] VITALS: Ht 190.5 cm; Wt 103.4 kg
--- NOTE | 2020-04-03 17:25 | REPVR ---
PROCEDURE INFORMATION: Exam: CT Head Without Contrast Exam date and time: 04/03/2020 4:45 PM Age: 74 years old Clinical indication: Altered mental status/memory loss; Additional info: Confusion TECHNIQUE: Imaging protocol: Computed tomography of the head without contrast. Radiation optimization: All CT scans at this facility use at least one of these dose optimization techniques: automated exposure control; mA and/or kV adjustment per patient size (includes targeted exams where dose is matched to clinical indication); or iterative reconstruction. COMPARISON: CT Head without contrast 02/27/2014 8:54 PM FINDINGS: Brain: There is no evidence of intracranial bleed. There is no evidence of mass effect. Cerebral ventricles: Normal ventricles. Bones/joints: Unremarkable. No acute fracture. Paranasal sinuses: Clear paranasal sinuses. Mastoid air cells: Clear mastoid air cells. Orbital cavity: Symmetric orbits. Soft tissues: Unremarkable. IMPRESSION: 1. No evidence of intracranial bleed. 2. No evidence of mass effect. Electronically signed by: Mina Knight On 04/03/2020 17:25:06 PM
[2020-04-03 17:59] LABS: BASO % 0.3 % (0.0-1.0); EOS # 0.3 10^3/uL (0.0-0.5); EOS % 2.5 % (0.0-3.0); HEMATOCRIT 39.4 % (42.0-52.0); HEMOGLOBIN 12.1 g/dl (13.5-17.5); LYMPH # 1.1 10^3/uL (1.5-5.0); MEAN CORPUSCULAR HEMOGLOBIN 29.6 pg (27.0-33.0); MEAN CORPUSCULAR HGB CONC 30.7 g/dl (32.0-36.5); MEAN CORPUSCULAR VOLUME 96.3 fl (80.0-96.0); MONO % 7.5 % (0.0-5.0); NEUTROPHILS # 11.2 10^3/uL (1.5-8.5); NEUTROPHILS % 81.2 % (36.0-66.0); PLATELET COUNT, AUTOMATED 336 10^3/uL (150-450); RED BLOOD COUNT 4.09 10^6/uL (4.30-6.10); WHITE BLOOD COUNT 13.8 10^3/uL (4.0-10.0)
[2020-04-03 18:09] LABS: APPEARANCE, URINE CLOUDY (CLEAR); BACTERIA, URINE AUTO 1+ (NEGATIVE); BILIRUBIN, URINE AUTO NEGATIVE (NEGATIVE); BLOOD, URINE BLOOD 3+ (NEGATIVE); COLOR, URINE YELLOW (YELLOW); GLUCOSE, URINE (UA) AUTO NEGATIVE (NEGATIVE); KETONE, URINE AUTO NEGATIVE (NEGATIVE); LEUKOCYTE ESTERASE, URINE AUTO 2+ (NEGATIVE); MUCUS, URINE SMALL (NEGATIVE); NITRITE, URINE AUTO NEGATIVE (NEGATIVE); PROTEIN, URINE AUTO 1+ mg/dL (NEGATIVE); RBC, URINE AUTO TNTC /HPF (0-3); SPECIFIC GRAVITY URINE AUTO 1.009 (1.002-1.035); SQUAMOUS EPITHELIAL CELL UR AU 0 /HPF (0-6); UROBILINOGEN, URINE AUTO 0.2 mg/dL (0.0-2.0); WBC, URINE AUTO TNTC /HPF (0-3)
[2020-04-03 18:26] LABS: ALBUMIN 2.9 GM/DL (3.2-5.2); BILIRUBIN,DIRECT 0.2 MG/DL (0.0-0.2); BILIRUBIN,TOTAL 0.5 MG/DL (0.2-1.0); THYROID STIMULATING HORMONE 1.47 uIU/ML (0.358-3.740); TOTAL PROTEIN 7.5 GM/DL (6.4-8.2)
--- NOTE | 2020-04-03 18:55 | REPVR ---
PROCEDURE INFORMATION: Exam: CT Abdomen And Pelvis Without Contrast Exam date and time: 04/03/2020 5:29 PM Age: 74 years old Clinical indication: Abdominal pain; Generalized; Additional info: R/O nephrolithiasis TECHNIQUE: Imaging protocol: Computed tomography of the abdomen and pelvis without contrast. Radiation optimization: All CT scans at this facility use at least one of these dose optimization techniques: automated exposure control; mA and/or kV adjustment per patient size (includes targeted exams where dose is matched to clinical indication); or iterative reconstruction. 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 Spinal musculature atrophy. Lungs: Minimal atelectasis at the right lung base. Liver: Normal. No mass. Gallbladder and bile ducts: Cholelithiasis. Pancreas: Normal. No ductal dilation. Spleen: Normal. No splenomegaly. Adrenal glands: Normal. No mass. Kidneys and ureters: Multiple cysts in the left kidney with the largest measuring 4 cm in the midpole. Duplication of the right ureters. Stomach and bowel: Moderate colonic fecal load. Small hiatal hernia. Appendix: No evidence of appendicitis. Intraperitoneal space: Unremarkable. No free air. No significant fluid collection. Vasculature: IVC filter. Lymph nodes: Unremarkable. No enlarged lymph nodes. Urinary bladder: Air in the urinary bladder, likely post catheterization. Reproductive: Unremarkable as visualized. Bones/joints: Scoliosis of the thoracolumbar spine. Intramedullary sourav in the right femur. Soft tissues: See "Tubes, catheters and devices" finding. IMPRESSION: No acute abdominal or pelvic abnormality. COMMENTS: Consistent with the [employer] [employer]'s Incidental Findings Committee white paper (J Am Bailey Radiol 2018): Any incidental renal lesion less than 1 cm or classified as too small to characterize, or any incidental cystic renal lesion characterized as simple-appearing, is likely benign. No follow-up imaging is recommended for these lesions per consensus recommendations based on imaging criteria. Electronically signed by: Fawad Leiva On 04/03/2020 18:55:11 PM
[2020-04-03] MEDS ORDERED: LEVO500T3 PO (18:58)
[2020-04-03 19:15] VITALS: BP 119/62
--- NOTE | 2020-04-06 08:46 | ECGEPIP ---
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
== END 2020-04-03 19:55 | disposition home or self-care (01) ==
LOC: EDBD 16:15 → M ED 16:15
DX: N39.0 Urinary tract infection, site not specified (principal); Z79.899 Other long term (current) drug therapy

== ENCOUNTER → 2020-04-12 | Outpatient (REF) ==
[~2020-04-12] MED LIST changes: +LEVO500T3 PO
== END ==
PROVIDERS: ATTEND Internal Medicine
DX: Z20.828 Contact with and (suspected) exposure to other viral communicable diseases (principal)

== ENCOUNTER → 2020-04-17 | Outpatient (REF) | payer MEDICARE | PROVIDERS: ATTEND Internal Medicine | DX: G40.909 Epilepsy, unspecified, not intractable, without status epilepticus (principal); Z79.899 Other long term (current) drug therapy ==

== ENCOUNTER → 2020-04-19 | Outpatient (REF) | payer MEDICARE ==
[~2020-04-19] MED LIST changes: +FURO40TA2 PO; -GABA600T4; +GABA600T4 PO; +KEPP10002 PO; +LEVE750T5 PO; -OXYC30TA72; +OXYC30TA72 PO; +POTA20TA6 PO; -PREG150C; +PREG150C PO
== END ==
LOC: EDSTATUS 05-29 11:43
PROVIDERS: ATTEND Internal Medicine
DX: Z20.828 Contact with and (suspected) exposure to other viral communicable diseases (principal)

== ENCOUNTER → 2020-04-25 | Outpatient (REF) | payer MEDICARE | PROVIDERS: ATTEND Internal Medicine | DX: Z20.828 Contact with and (suspected) exposure to other viral communicable diseases (principal) ==

== ENCOUNTER → 2020-05-08 | Outpatient (REF) | payer MEDICARE ==
[~2020-05-08] MED LIST changes: -FURO40TA2 PO; +GABA600T4; -GABA600T4 PO; -KEPP10002 PO; -LEVE750T5 PO; +OXYC30TA72; -OXYC30TA72 PO; -POTA20TA6 PO; +PREG150C; -PREG150C PO
[2020-05-08 16:12] LABS: APPEARANCE, URINE TURBID (CLEAR); BACTERIA, URINE AUTO 1+ (NEGATIVE); BILIRUBIN, URINE AUTO NEGATIVE (NEGATIVE); BLOOD, URINE BLOOD 3+ (NEGATIVE); COLOR, URINE RED (YELLOW); GLUCOSE, URINE (UA) AUTO NEGATIVE (NEGATIVE); KETONE, URINE AUTO NEGATIVE (NEGATIVE); LEUKOCYTE ESTERASE, URINE AUTO 2+ (NEGATIVE); MUCUS, URINE SMALL (NEGATIVE); NITRITE, URINE AUTO NEGATIVE (NEGATIVE); PROTEIN, URINE AUTO 2+ mg/dL (NEGATIVE); RBC, URINE AUTO TNTC /HPF (0-3); SPECIFIC GRAVITY URINE AUTO 1.018 (1.002-1.035); SQUAMOUS EPITHELIAL CELL UR AU 2 /HPF (0-6); UROBILINOGEN, URINE AUTO 0.2 mg/dL (0.0-2.0); WBC, URINE AUTO 126 /HPF (0-3)
== END ==
PROVIDERS: ATTEND Internal Medicine
DX: R31.0 Gross hematuria (principal)

== ENCOUNTER → 2020-05-09 | Outpatient (REF) | payer MEDICARE ==
[2020-05-09 13:35] LABS: HEMATOCRIT 41.7 % (42.0-52.0); HEMOGLOBIN 12.7 g/dl (13.5-17.5); MEAN CORPUSCULAR HEMOGLOBIN 28.9 pg (27.0-33.0); MEAN CORPUSCULAR HGB CONC 30.5 g/dl (32.0-36.5); MEAN CORPUSCULAR VOLUME 94.8 fl (80.0-96.0); PLATELET COUNT, AUTOMATED 245 10^3/uL (150-450); WHITE BLOOD COUNT 8.3 10^3/uL (4.0-10.0)
[2020-05-09 14:09] LABS: ALBUMIN 3.1 GM/DL (3.2-5.2); ALT/SGPT 15 U/L (12-78); BILIRUBIN,TOTAL 0.6 MG/DL (0.2-1.0); BLOOD UREA NITROGEN 20 MG/DL (7-18); CALCIUM LEVEL 8.3 MG/DL (8.8-10.2); CARBON DIOXIDE LEVEL 34 MEQ/L (21-32); CHLORIDE LEVEL 102 MEQ/L (98-107); CREATININE FOR GFR 0.76 MG/DL (0.70-1.30); GLOMERULAR FILTRATION RATE > 60.0 (>42); GLUCOSE, FASTING 124 MG/DL (70-100); POTASSIUM SERUM 3.9 MEQ/L (3.5-5.1); SODIUM LEVEL 142 MEQ/L (136-145); TOTAL PROTEIN 6.8 GM/DL (6.4-8.2)
[2020-05-09 14:14] LABS: APPEARANCE, URINE CLOUDY (CLEAR); BACTERIA, URINE AUTO 1+ (NEGATIVE); BILIRUBIN, URINE AUTO NEGATIVE (NEGATIVE); BLOOD, URINE BLOOD 3+ (NEGATIVE); COLOR, URINE YELLOW (YELLOW); GLUCOSE, URINE (UA) AUTO NEGATIVE (NEGATIVE); KETONE, URINE AUTO NEGATIVE (NEGATIVE); LEUKOCYTE ESTERASE, URINE AUTO 3+ (NEGATIVE); MUCUS, URINE SMALL (NEGATIVE); NITRITE, URINE AUTO NEGATIVE (NEGATIVE); PROTEIN, URINE AUTO 1+ mg/dL (NEGATIVE); RBC, URINE AUTO TNTC /HPF (0-3); SPECIFIC GRAVITY URINE AUTO 1.016 (1.002-1.035); SQUAMOUS EPITHELIAL CELL UR AU 1 /HPF (0-6); UROBILINOGEN, URINE AUTO 0.2 mg/dL (0.0-2.0); WBC, URINE AUTO TNTC /HPF (0-3)
== END ==
PROVIDERS: ATTEND Internal Medicine
DX: R80.9 Proteinuria, unspecified (principal)

== ENCOUNTER → 2020-05-09 | Outpatient (REF) | payer MEDICARE | PROVIDERS: ATTEND Internal Medicine | DX: R80.9 Proteinuria, unspecified (principal) ==

== ENCOUNTER → 2020-05-13 | Outpatient (REF) | payer MEDICARE | PROVIDERS: ATTEND Internal Medicine | DX: Z20.828 Contact with and (suspected) exposure to other viral communicable diseases (principal) ==

== ENCOUNTER → 2020-05-14 | Outpatient (REF) | payer MEDICARE | PROVIDERS: ATTEND Internal Medicine | DX: R56.9 Unspecified convulsions (principal) ==

== ENCOUNTER → 2020-05-17 | Outpatient (REF) | payer MEDICARE ==
[~2020-05-17] MED LIST changes: +FURO40TA2 PO; -GABA600T4; +GABA600T4 PO; +KEPP10002 PO; +LEVE750T5 PO; -OXYC30TA72; +OXYC30TA72 PO; +POTA20TA6 PO; -PREG150C; +PREG150C PO
== END ==
PROVIDERS: ATTEND Internal Medicine
DX: Z20.828 Contact with and (suspected) exposure to other viral communicable diseases (principal)

== ENCOUNTER → 2020-05-23 | Outpatient (REF) | payer MEDICARE | PROVIDERS: ATTEND Internal Medicine | DX: Z20.828 Contact with and (suspected) exposure to other viral communicable diseases (principal) ==

== ENCOUNTER 2020-05-24 12:13 | Inpatient (IN) | payer MEDICARE ==
[~2020-05-24] VITALS: Ht 190.5 cm; Wt 92.5 kg
[~2020-05-24 12:13] MED LIST changes: -FURO40TA2 PO; -KEPP10002 PO; -LEVE750T5 PO; -POTA20TA6 PO
[2020-05-24] MEDS ORDERED: POTA20TA6 PO (12:30)
[2020-05-24] MEDS ORDERED: FURO40TA2 PO (12:30)
[2020-05-24] MEDS ORDERED: LEVE750T5 PO (12:30)
[2020-05-24 14:09] LABS: BASO % 0.2 % (0.0-1.0); EOS # 0.1 10^3/uL (0.0-0.5); EOS % 0.5 % (0.0-3.0); HEMATOCRIT 46.8 % (42.0-52.0); HEMOGLOBIN 14.6 g/dl (13.5-17.5); LYMPH # 0.9 10^3/uL (1.5-5.0); LYMPH % 8.2 % (24.0-44.0); MEAN CORPUSCULAR HEMOGLOBIN 28.6 pg (27.0-33.0); MEAN CORPUSCULAR HGB CONC 31.2 g/dl (32.0-36.5); MEAN CORPUSCULAR VOLUME 91.6 fl (80.0-96.0); MONO # 0.4 10^3/uL (0.0-0.8); MONO % 3.9 % (0.0-5.0); NEUTROPHILS # 9.6 10^3/uL (1.5-8.5); NEUTROPHILS % 86.9 % (36.0-66.0); RED BLOOD COUNT 5.11 10^6/uL (4.30-6.10); WHITE BLOOD COUNT 11.1 10^3/uL (4.0-10.0)
--- NOTE | 2020-05-24 14:30 | REP ---
INDICATION: weakness COMPARISON: 12/21/2017 TECHNIQUE: AP and lateral. FINDINGS: The mediastinum and cardiac silhouette are normal. The lung gonzalez demonstrate minimal scarring in the bilateral mid lung zones without focal consolidation, effusion, or pneumothorax. The skeletal structures are intact and normal. IMPRESSION: No acute cardiopulmonary process. <Electronically signed by Thad Kenney > 05/24/20 [id number]
[2020-05-24 15:55] LABS: BLOOD UREA NITROGEN 21 MG/DL (7-18); CALCIUM LEVEL 9.5 MG/DL (8.8-10.2); CARBON DIOXIDE LEVEL 31 MEQ/L (21-32); CHLORIDE LEVEL 108 MEQ/L (98-107); CREATININE FOR GFR 0.73 MG/DL (0.70-1.30); GLOMERULAR FILTRATION RATE > 60.0 (>42); GLUCOSE, FASTING 81 MG/DL (70-100); POTASSIUM SERUM 4.1 MEQ/L (3.5-5.1); SODIUM LEVEL 145 MEQ/L (136-145); TROPONIN I < 0.02 NG/ML (< 0.10)
--- NOTE | 2020-05-24 16:50 | HPEPDOC ---
General Date of Admission 05/24/20 Date of Service: May 24, 2020 Chief Complaint The patient is a 74-year-old male admitted with a reason for visit of Weakness. Source: Patient Exam Limitations: No limitations Timing/Duration: Day(s) Severity: Mild History of Present Illness Patient is 74 years old male with past medical history of Spinal cord tumor, who is wheelchair bound presented to the hospital with failure to thrive. Patient was recently discharged home from [facility]. Patient developed few mechanical fall at home due to generalized weakness. Patient stated that he lives alone and has lack of support. In ER patient was found to have mild leukocytosis 11.1, patient afebrile, normotensive, troponin negative. Chest x-ray showed no acute cardiopulmonary process Home Medications Scheduled Furosemide (Furosemide) 40 Mg Tablet, 40 MG PO BID, (Reported) 2ND DOSE @ 1400 Gabapentin (Gabapentin) 600 Mg Tablet, 600 MG PO BID, (Reported) Levetiracetam (Levetiracetam) 750 Mg Tablet, 750 MG PO DAILY, (Reported) Levetiracetam (Keppra) 1,000 Mg Tablet, 1,000 MG PO QHS, (Reported) Oxycodone HCl (Oxycontin) 30 Mg Tab.er.12h, 30 MG PO BID, (Reported) Potassium Chloride (Potassium Chloride) 20 Meq Tab.er.prt, 40 MEQ PO DAILY, (Reported) Pregabalin (Pregabalin) 150 Mg Capsule, 150 MG PO BID, (Reported) Allergies Coded Allergies: linezolid (Verified Allergy, Unknown, 04/23/19) Past Medical History Medical History History of pressure ulcer right lateral malleolus Chronic back pain Neuropathic Charcot foot History of MRSA right foot Urinary retention from back surgery Chronic 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 Chronic osteomyelitis of distal fibula Surgical History RESECTION OF LUMBER TUMOR 1979 MULTIPLE BACK SURGERIES [id number] HERNIA REPAIR LUMBAR FUSION/THORACIC LAMINECTOMY CYST DRAINED ON LOWER BACK 12/06/14 LEFT LEG SX REMOVED VEIN 06/14/17 Family History I personally reviewed family history and found not pertinent Social History * Smoker: Denies Alcohol: Denies Drugs: denies A-FIB/CHADSVASC A-FIB History Current/History of A-Fib/PAF?: No Current PO Anticoag Therapy: No Review of Systems Constitutional: Reports: Weakness Eyes: Denies: Pain ENT: Denies: Head Aches Skin: Denies: Rash Pulmonary: Denies: Dyspnea, Cough Cardiovascular: Denies: Chest Pain Gastrointestinal: Denies: Nausea Genitourinary: Denies: Dysuria Hematologic: Denies: Bruising Endocrine: Denies: Polydipsia Musculoskeletal: Denies: Neck Pain Neurological: Denies: Weakness Psych: Reports: Mood Normal Physical Examination General Exam: Positive: Alert, Cooperative Eye Exam: Positive: PERRLA ENT Exam: Positive: Atraumatic Neck Exam: Positive: Supple; Negative: JVD Chest Exam: Positive: Clear to auscultation Heart Exam: Positive: Rate Normal Telemetry: Positive: No significant arrhythmia, Sinus Abdomen Exam: Positive: Normal bowel sounds Extremity Exam: Negative: Clubbing Skin Exam: Positive: Nl turgor and temperature Neuro Exam: Positive: Cranial Nerves 3-12 NL Psych Exam: Positive: Mental status NL Vital Signs Vital Signs Date Time Temp Pulse Resp B/P (MAP) Pulse Ox O2 Delivery O2 Flow Rate FiO2 05/24/20 12:25 97.0 88 19 125/64 (84) 97 Room Air Laboratory Data Labs 24H Laboratory Tests 2 05/24/20 13:56: Immature Granulocyte % (Auto) 0.3, Neutrophils (%) (Auto) 86.9H, Lymphocytes (%) (Auto) 8.2L, Monocytes (%) (Auto) 3.9, Eosinophils (%) (Auto) 0.5, Basophils (%) (Auto) 0.2, Neutrophils # (Auto) 9.6H, Lymphocytes # (Auto) 0.9L, Monocytes # (Auto) 0.4, Eosinophils # (Auto) 0.1, Basophils # (Auto) 0.0, Nucleated Red Blood Cells % (auto) 0.0 05/24/20 14:41: Anion Gap 6L, Glomerular Filtration Rate > 60.0, Calcium Level 9.5, Troponin I < 0.02 05/24/20 15:56: Urine Color DEE, Urine Appearance CLOUDYH, Urine pH 5.0, Urine Specific [place] 1.022, Urine Protein 3+H, Urine Glucose (UA) 1+H, Urine Ketones 1+H, Urine Blood 2+H, Urine Nitrite NEGATIVE, Urine Bilirubin NEGATIVE, Urine Urobilinogen 0.2, Urine Leukocyte Esterase TRACEH, Urine WBC (Auto) 62H, Urine RBC (Auto) 152H, Urine Hyaline Casts (Auto) 30, Urine Bacteria (Auto) 1+H, Urine Squamous Epithelial Cells 0, Urine Amorphous Sediment SMALLH, Urine Mucus (Auto) SMALL, Urine Sperm (Auto) CBC/BMP Laboratory Tests 05/24/20 13:56 05/24/20 14:41 Microbiology Microbiology 05/24/20 Urine Culture, Received Pending Assessment/Plan Patient is 74 years old male with past medical history of Spinal cord tumor, who is wheelchair bound presented to the hospital with failure to thrive. Patient was recently discharged home from [facility]. Patient developed few mechanical fall at home due to generalized weakness. Patient stated that he lives alone and has lack of support. In ER patient was found to have mild leukocytosis 11.1, patient afebrile, normotensive, troponin negative. Chest x-ray showed no acute cardiopulmonary process Problems (1) Weakness Status: Chronic Problem Text: Secondary to debility superimposed with spinal stenosis Patient developed failure to thrive Lack of social support PT/OT Plan / VTE VTE Prophylaxis Ordered?: Yes VISHAL GRIGSBY DO May 24, 2020 16:50
[2020-05-24] MEDS ORDERED: KEPP10002 PO (17:03)
[2020-05-24 17:09] LABS: RSV AMPLIFICATION NEGATIVE (NEGATIVE)
[2020-05-24 22:15] VITALS: BP 133/69
[2020-05-25 06:00] VITALS: BP 114/77
[2020-05-25 06:24] LABS: HEMATOCRIT 41.9 % (42.0-52.0); MEAN CORPUSCULAR HEMOGLOBIN 28.6 pg (27.0-33.0); MEAN CORPUSCULAR VOLUME 92.3 fl (80.0-96.0); PLATELET COUNT, AUTOMATED 276 10^3/uL (150-450); RED BLOOD COUNT 4.54 10^6/uL (4.30-6.10); WHITE BLOOD COUNT 6.3 10^3/uL (4.0-10.0)
[2020-05-25 06:54] LABS: ALBUMIN 3.2 GM/DL (3.2-5.2); ALT/SGPT 23 U/L (12-78); BILIRUBIN,TOTAL 0.6 MG/DL (0.2-1.0); BLOOD UREA NITROGEN 19 MG/DL (7-18); CALCIUM LEVEL 8.9 MG/DL (8.8-10.2); CARBON DIOXIDE LEVEL 31 MEQ/L (21-32); CHLORIDE LEVEL 106 MEQ/L (98-107); CREATININE FOR GFR 0.66 MG/DL (0.70-1.30); GLOMERULAR FILTRATION RATE > 60.0 (>42); GLUCOSE, FASTING 76 MG/DL (70-100); MAGNESIUM LEVEL 2.3 MG/DL (1.8-2.4); POTASSIUM SERUM 3.6 MEQ/L (3.5-5.1); SODIUM LEVEL 144 MEQ/L (136-145); TOTAL PROTEIN 6.7 GM/DL (6.4-8.2)
[2020-05-25] MEDS: ACETAMINOPHEN TAB 650MG DOSE (2X325MG) PO PRN (06:54)
--- NOTE | 2020-05-25 07:38 | ECGEPIP ---
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
[2020-05-25] MEDS: FUROSEMIDE 40 MG TAB PO SCH ×2 (09:15→17:35)
[2020-05-25] MEDS: levETIRAcetam 250MG TABLET (KEPPRA) PO SCH ×2 (09:15→21:29)
[2020-05-25] MEDS: POTASSIUM CHLORIDE 10 MEQ SR TABLET PO SCH (09:16)
[2020-05-25] MEDS: ENOXAPARIN 40MG/0.4ML SYRINGE (J1650 PER 10MG) SC SCH (09:16)
[2020-05-25] MEDS: oxyCODONE 15 MG CR TAB PO SCH ×2 (09:17→21:29)
--- NOTE | 2020-05-25 12:01 | IPNPDOC ---
Text Note Date of Service The patient was seen on 05/25/20. NOTE Subjective: No any acute events overnight. Patient denied fever, chills, nausea, vomiting, chest pain or palpitations Objective: GENERAL APPEARANCE: NAD HEENT: no scleral icterus, no JVD, EOMI CARDIOVASCULAR: S1S2 LUNGS: CTA ABDOMEN: soft & not tender w palpitation MUSCULOSKELETAL: no cyanosis, no swelling INTEGUMENT: no generalized palor NEUROLOGICAL: cranial nerve function from 2-12 intact intact, follows commands, speech not dysarthric Assessment/Plan Patient is 74 years old male with past medical history of Spinal cord tumor, who is wheelchair bound presented to the hospital with failure to thrive. Patient was recently discharged home from [facility]. Patient developed few mechanical fall at home due to generalized weakness. Patient stated that he lives alone and has lack of support. In ER patient was found to have mild leukocytosis 11.1, patient afebrile, normotensive, troponin negative. Chest x-ray showed no acute cardiopulmonary process Problems (1) Weakness Secondary to debility superimposed with spinal stenosis Patient developed failure to thrive Lack of social support PT/OT History of seizures Continue Evy VS,Larry, I+O VS, Larry, I+O Laboratory Tests 05/24/20 13:56 05/24/20 14:41 05/25/20 05:54 Vital Signs Date Time Temp Pulse Resp B/P (MAP) Pulse Ox O2 Delivery O2 Flow Rate FiO2 05/25/20 09:17 14 97 Room Air 05/25/20 06:00 98.2 86 114/77 (89) I&O- Last 24 Hours up to 6 AM 05/25/20 06:00 Intake Total 180 ml Output Total 200 ml Balance -20 ml VISHAL GRIGSBY DO May 25, 2020 12:01
[2020-05-25 14:00] VITALS: BP 117/76
[2020-05-25 22:00] VITALS: BP 118/74
[2020-05-26 06:00] VITALS: BP 124/74
[2020-05-26] MEDS: ENOXAPARIN 40MG/0.4ML SYRINGE (J1650 PER 10MG) SC SCH (08:14)
[2020-05-26] MEDS: levETIRAcetam 250MG TABLET (KEPPRA) PO SCH ×2 (08:15→21:08)
[2020-05-26] MEDS: POTASSIUM CHLORIDE 10 MEQ SR TABLET PO SCH (08:15)
[2020-05-26] MEDS: FUROSEMIDE 40 MG TAB PO SCH ×2 (08:15→16:42)
[2020-05-26] MEDS: oxyCODONE 15 MG CR TAB PO SCH ×2 (08:16→21:08)
--- NOTE | 2020-05-26 13:21 | IPNPDOC ---
Text Note Date of Service The patient was seen on 05/26/20. NOTE Subjective: Patient stated that he feels better today. Patient denied fever, chills, nausea, vomiting, chest pain or palpitations Objective: GENERAL APPEARANCE: NAD HEENT: no scleral icterus, no JVD, EOMI CARDIOVASCULAR: S1S2 LUNGS: CTA ABDOMEN: soft & not tender w palpitation MUSCULOSKELETAL: no cyanosis, no swelling INTEGUMENT: no generalized palor NEUROLOGICAL: cranial nerve function from 2-12 intact intact, follows commands, speech not dysarthric Assessment/Plan Patient is 74 years old male with past medical history of Spinal cord tumor, who is wheelchair bound presented to the hospital with failure to thrive. Patient was recently discharged home from [facility]. Patient developed few mechanical fall at home due to generalized weakness. Patient stated that he lives alone and has lack of support. In ER patient was found to have mild leukocytosis 11.1, patient afebrile, normotensive, troponin negative. Chest x-ray showed no acute cardiopulmonary process Problems (1) Weakness Secondary to debility superimposed with spinal stenosis Improved Patient developed failure to thrive Lack of social support PT/OT History of seizures Continue Keppra VS,Fishbone, I+O VS, Fishbone, I+O Vital Signs Date Time Temp Pulse Resp B/P (MAP) Pulse Ox O2 Delivery O2 Flow Rate FiO2 05/26/20 08:16 16 Room Air 05/26/20 06:00 97.7 74 124/74 (91) 94 I&O- Last 24 Hours up to 6 AM 05/26/20 06:00 Intake Total 1140 ml Output Total 50 ml Balance 1090 ml VISHAL GRIGSBY DO May 26, 2020 13:21
[2020-05-26] MEDS: ACETAMINOPHEN TAB 650MG DOSE (2X325MG) PO PRN (15:44)
[2020-05-27 06:00] VITALS: BP 124/69
[2020-05-27] MEDS: levETIRAcetam 250MG TABLET (KEPPRA) PO SCH ×2 (08:52→20:59)
[2020-05-27] MEDS: oxyCODONE 15 MG CR TAB PO SCH ×2 (08:52→21:00)
[2020-05-27] MEDS: ENOXAPARIN 40MG/0.4ML SYRINGE (J1650 PER 10MG) SC SCH (08:52)
[2020-05-27] MEDS: POTASSIUM CHLORIDE 10 MEQ SR TABLET PO SCH (08:53)
[2020-05-27] MEDS: FUROSEMIDE 40 MG TAB PO SCH ×2 (08:53→16:38)
[2020-05-28 06:00] VITALS: BP 132/60
[2020-05-28] MEDS: FUROSEMIDE 40 MG TAB PO SCH ×2 (09:17→17:32)
[2020-05-28] MEDS: levETIRAcetam 250MG TABLET (KEPPRA) PO SCH ×2 (09:17→21:57)
[2020-05-28] MEDS: ENOXAPARIN 40MG/0.4ML SYRINGE (J1650 PER 10MG) SC SCH (09:18)
[2020-05-28] MEDS: POTASSIUM CHLORIDE 10 MEQ SR TABLET PO SCH (09:18)
[2020-05-28] MEDS: oxyCODONE 15 MG CR TAB PO SCH ×2 (09:19→21:57)
[2020-05-28 14:00] VITALS: BP 116/72
[2020-05-28] MEDS: ACETAMINOPHEN TAB 650MG DOSE (2X325MG) PO PRN (15:34)
[2020-05-28] MEDS: DIMETHICONE 2% OINTMENT(VANICREAM) 70GM TUBE TOP SCH (21:59)
[2020-05-29] MEDS: ACETAMINOPHEN TAB 650MG DOSE (2X325MG) PO PRN (05:33)
[2020-05-29 06:00] VITALS: BP 118/74
[2020-05-29] MEDS: FUROSEMIDE 40 MG TAB PO SCH ×2 (08:58→16:25)
[2020-05-29] MEDS: POTASSIUM CHLORIDE 10 MEQ SR TABLET PO SCH (08:58)
[2020-05-29] MEDS: oxyCODONE 15 MG CR TAB PO SCH ×2 (08:59→22:12)
[2020-05-29] MEDS: levETIRAcetam 250MG TABLET (KEPPRA) PO SCH ×2 (08:59→22:10)
[2020-05-29] MEDS: ENOXAPARIN 40MG/0.4ML SYRINGE (J1650 PER 10MG) SC SCH (08:59)
[2020-05-29] MEDS: DIMETHICONE 2% OINTMENT(VANICREAM) 70GM TUBE TOP SCH ×2 (09:00→22:12)
[2020-05-29] MEDS ORDERED: oxyCODONE 5MG TAB PO PRN (16:15)
--- NOTE | 2020-05-29 16:18 | IPNPDOC ---
Date Seen The patient was seen on 05/29/20. Progress Note Subjective: States to have lower ext pain, acute on chronic. Patient stated that he feels better today. Patient denied fever, chills, nausea, vomiting, chest pain or palpitations Objective: GENERAL APPEARANCE: NAD HEENT: no scleral icterus, no JVD, EOMI CARDIOVASCULAR: S1S2 LUNGS: CTA ABDOMEN: soft & not tender w palpitation MUSCULOSKELETAL: no cyanosis, +1 pitting edema b/l lower ext, no tenderness to palpation INTEGUMENT: no generalized palor NEUROLOGICAL: cranial nerve function from 2-12 intact intact, follows commands, speech not dysarthric ASSESSMENT: Patient is 74 years old male with past medical history of Spinal cord tumor, who is wheelchair bound presented to the hospital with failure to thrive. Patient was recently discharged home from [facility]. Patient developed few mechanical fall at home due to generalized weakness. Patient stated that he lives alone and has lack of support. In ER patient was found to have mild leukocytosis 11.1, patient afebrile, normotensive, troponin negative. Chest x-ray showed no acute cardiopulmonary process PLAN: (1) Weakness 2/2 to debility superimposed with spinal stenosis. -Patient developed failure to thrive -Lack of social support -PT/OT, awaiting placement for rehab (2) Lower ext pain, acute on chronic. Not controlled -Patient states he has nerve pain which hurts him at times. -Starting on gabapentin 100 mg PO BID and breakthrough pain med oxyIR Q8hrs, low dose -Monitor for s/s of lethargy, sleepiness (3)History of seizures -Stable -Continue Keppra (4) Hypokalemia, chronic -C/w K supplement (5) DVT px -Lovenox DISPOSITION: Awaiting placement currently for rehab VS, I&O, 24H, Fishbone Vital Signs/I&O Vital Signs Date Time Temp Pulse Resp B/P (MAP) Pulse Ox O2 Delivery O2 Flow Rate FiO2 05/29/20 08:59 16 Room Air 05/29/20 06:00 97.9 77 118/74 (89) 99 I&O- Last 24 Hours up to 6 AM 05/29/20 06:00 Intake Total 960 ml Output Total 800 ml Balance 160 ml Laboratory Data Microbiology Microbiology 05/24/20 Urine Culture - Final, Complete Current Medications Current Medications Medications (Trade) Dose Ordered Sig/Mark Route PRN Reason Start Time Stop Time Status Last Admin Dose Admin Acetaminophen (Tylenol Tab) 650 mg Q4H PRN PO PAIN OR FEVER 05/24/20 16:45 05/29/20 05:33 Dimethicone (Vanicream Ointment) apply to bilateral feet BID TOP 05/28/20 21:00 05/29/20 09:00 Enoxaparin Sodium (Lovenox) 40 mg DAILY SC 05/25/20 09:00 05/29/20 08:59 Furosemide (Lasix) 40 mg BID@0900,1700 PO 05/25/20 09:00 05/29/20 08:58 Home Med (Med Rec Complete!) ASDIRECTED XX 05/24/20 18:00 05/24/20 17:57 DC Levetiracetam (Keppra) 750 mg DAILY PO 05/25/20 09:00 05/29/20 08:59 Levetiracetam (Keppra) 1,000 mg QHS PO 05/25/20 21:00 05/28/20 21:57 Oxycodone HCl (OxyCONTIN) 30 mg BID PO 05/25/20 09:00 05/29/20 08:59 Potassium Chloride (Micro-K Extencaps) 40 meq DAILY PO 05/25/20 09:00 05/29/20 08:58 Allergies Coded Allergies: linezolid (Verified Allergy, Unknown, 04/23/19) Chayo Chen MD May 29, 2020 16:18
[2020-05-29] MEDS: oxyCODONE 5MG TAB PO PRN (16:25)
[2020-05-29] MEDS: GABAPENTIN 100 MG CAP PO SCH (22:10)
[2020-05-30 06:00] VITALS: BP 112/74
[2020-05-30 06:34] LABS: HEMATOCRIT 48.4 % (42.0-52.0); HEMOGLOBIN 14.6 g/dl (13.5-17.5); MEAN CORPUSCULAR HEMOGLOBIN 28.1 pg (27.0-33.0); MEAN CORPUSCULAR HGB CONC 30.2 g/dl (32.0-36.5); MEAN CORPUSCULAR VOLUME 93.3 fl (80.0-96.0); PLATELET COUNT, AUTOMATED 265 10^3/uL (150-450); RED BLOOD COUNT 5.19 10^6/uL (4.30-6.10); WHITE BLOOD COUNT 5.1 10^3/uL (4.0-10.0)
[2020-05-30 07:10] LABS: ALBUMIN 3.6 GM/DL (3.2-5.2); ALT/SGPT 20 U/L (12-78); BILIRUBIN,TOTAL 0.6 MG/DL (0.2-1.0); BLOOD UREA NITROGEN 16 MG/DL (7-18); CALCIUM LEVEL 9.4 MG/DL (8.8-10.2); CARBON DIOXIDE LEVEL 30 MEQ/L (21-32); CHLORIDE LEVEL 101 MEQ/L (98-107); CREATININE FOR GFR 0.74 MG/DL (0.70-1.30); GLOMERULAR FILTRATION RATE > 60.0 (>42); GLUCOSE, FASTING 68 MG/DL (70-100); SODIUM LEVEL 141 MEQ/L (136-145); TOTAL PROTEIN 7.5 GM/DL (6.4-8.2)
[2020-05-30] MEDS: GABAPENTIN 100 MG CAP PO SCH (07:58)
[2020-05-30] MEDS: FUROSEMIDE 40 MG TAB PO SCH (07:58)
[2020-05-30] MEDS: levETIRAcetam 250MG TABLET (KEPPRA) PO SCH (07:59)
[2020-05-30] MEDS: POTASSIUM CHLORIDE 10 MEQ SR TABLET PO SCH (07:59)
[2020-05-30] MEDS: ENOXAPARIN 40MG/0.4ML SYRINGE (J1650 PER 10MG) SC SCH (07:59)
[2020-05-30] MEDS: oxyCODONE 15 MG CR TAB PO SCH (08:00)
[2020-05-30] MEDS: DIMETHICONE 2% OINTMENT(VANICREAM) 70GM TUBE TOP SCH (08:00)
[2020-05-30] MEDS: oxyCODONE 5MG TAB PO PRN (09:18)
--- NOTE | 2020-05-30 12:41 | DS.PDOC ---
Discharge Summary General Date of Admission May 24, 2020 at 16:33 Date of Discharge 05/30/20 Attending Physician: Chayo Chen MD Discharge Summary HPI: Patient is 74 years old male with past medical history of Spinal cord tumor, who is wheelchair bound presented to the hospital with failure to thrive. Patient was recently discharged home from [facility]. Patient developed few mechanical fall at home due to generalized weakness. Patient stated that he lives alone and has lack of support. In ER patient was found to have mild leukocytosis 11.1, patient afebrile, normotensive, troponin negative. Chest x-ray showed no acute cardiopulmonary process. Patient was found to have UTI, increased weakness and was admitted for further evaluation, treatment. HOSPITAL COURSE: UA pos but UCX later showed NG, was treated for 3 days of IV abx. VS remained stable. Chronic pain was issue in the lower ext, resumed home oxy and gabapentin. PT/OT evaluated patient and found need to continue services in rehab setting. Please refer to their notes for more detail. On 05/30/20 patient was discharged from inpatient status to [facility] for continued rehab. AT time of discharge, he denied chest pain, fevers, chills, n/v/d, shortness of breath. 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 DISCHARGE MEDICATIONS: Please see below. PHYSICAL EXAM: VS: Please GENERAL APPEARANCE: NAD HEENT: no scleral icterus, no JVD, EOMI CARDIOVASCULAR: S1S2 LUNGS: CTA ABDOMEN: soft & not tender w palpitation MUSCULOSKELETAL: no cyanosis, +1 pitting edema b/l lower ext, no tenderness to palpation INTEGUMENT: no generalized palor NEUROLOGICAL: cranial nerve function from 2-12 intact intact, follows commands, speech not dysarthric LABORATORY: Please see below Imaging: CXR: No acute cardiopulmonary process. ASSESSMENT: Patient is 74 years old male with past medical history of Spinal cord tumor, who is wheelchair bound presented to the hospital with failure to thrive. Patient was recently discharged home from [facility]. Patient developed few mechanical fall at home due to generalized weakness. Patient stated that he lives alone and has lack of support. In ER patient was found to have mild leukocytosis 11.1, patient afebrile, normotensive, troponin negative. Chest x-ray showed no acute cardiopulmonary process PLAN: (1) Weakness 2/2 to debility superimposed with spinal stenosis. -Patient developed failure to thrive -Lack of social support -PT/OT recommending continued rehab -D/c today to [facility] for continued services (2) Lower ext pain, acute on chronic. Not controlled -Patient states he has nerve pain which hurts him at times. -restarting home gabapentin 600 mg PO BID. D/c Oxy IR at discharge -Monitor for s/s of lethargy, sleepiness (3)History of seizures -Stable -Continue Keppra (4) Hypokalemia, chronic -C/w K supplement (5)UTI -NG on UCX -Treated with several days of abx DISPOSITION: Discharging today to [facility] for continued Rehab. TIME SPENT ON DISCHARGE: Greater than 30 minutes. Vital Signs/I&Os Vital Signs Date Time Temp Pulse Resp B/P (MAP) Pulse Ox O2 Delivery O2 Flow Rate FiO2 05/30/20 09:49 18 05/30/20 08:00 Room Air 05/30/20 06:00 97.7 86 112/74 (87) 95 I&O- Last 24 Hours up to 6 AM 05/30/20 06:00 Intake Total 700 ml Output Total 1200 ml Balance -500 ml Laboratory Data Labs 24H Laboratory Tests 2 05/30/20 05:58: Nucleated Red Blood Cells % (auto) 0.0, Anion Gap 10, Glomerular Filtration Rate > 60.0, Calcium Level 9.4, Total Bilirubin 0.6, Aspartate Amino Transf (AST/SGOT) 18, Alanine Aminotransferase (ALT/SGPT) 20, Alkaline Phosphatase 112, Total Protein 7.5, Albumin 3.6, Albumin/Globulin Ratio 0.9 CBC/BMP Laboratory Tests 05/30/20 05:58 Microbiology Microbiology 05/24/20 Urine Culture - Final, Complete Discharge Medications Scheduled Furosemide (Furosemide) 40 Mg Tablet, 40 MG PO BID, (Reported) 2ND DOSE @ 1400 Gabapentin (Gabapentin) 600 Mg Tablet, 600 MG PO BID, (Reported) Levetiracetam (Levetiracetam) 750 Mg Tablet, 750 MG PO DAILY, (Reported) Levetiracetam (Keppra) 1,000 Mg Tablet, 1,000 MG PO QHS, (Reported) Oxycodone HCl (Oxycontin) 30 Mg Tab.er.12h, 30 MG PO BID, (Reported) Potassium Chloride (Potassium Chloride) 20 Meq Tab.er.prt, 40 MEQ PO DAILY, (Reported) Pregabalin (Pregabalin) 150 Mg Capsule, 150 MG PO BID, (Reported) Allergies Coded Allergies: linezolid (Verified Allergy, Unknown, 04/23/19) Chayo Chen MD May 30, 2020 12:41
[2020-05-30] MEDS ORDERED: GABAPENTIN 100 MG CAP PO SCH ×2 (16:00→21:00)
== END 2020-05-30 14:40 | DRG 552 ==
LOC: M ED 12:13 → M ED INP 16:33 → ENRESERV 20:20 → M MSPAV 22:15
PROVIDERS: ADMIT Internal Medicine; ATTEND Internal Medicine
DX: M48.00 Spinal stenosis, site unspecified (principal); N39.0 Urinary tract infection, site not specified; G62.9 Polyneuropathy, unspecified; R53.1 Weakness; G40.909 Epilepsy, unspecified, not intractable, without status epilepticus; R62.7 Adult failure to thrive; E87.6 Hypokalemia; Z79.899 Other long term (current) drug therapy; Z88.8 Allergy status to other drugs, medicaments and biological substances

== ENCOUNTER 2020-08-13 20:35 | Inpatient (IN) | payer MEDICARE, SELFPAY ==
[~2020-08-13] VITALS: Ht 188 cm; Wt 84.5 kg
[~2020-08-13 20:35] MED LIST changes: +FURO40TA2 PO; +KEPP10002 PO; +LEVE750T5 PO; +POTA20TA6 PO
[2020-08-13 21:01] LABS: BASO % 0.2 % (0.0-1.0); EOS # 0.2 10^3/uL (0.0-0.5); EOS % 1.1 % (0.0-3.0); HEMOGLOBIN 11.5 g/dl (13.5-17.5); LYMPH # 1.2 10^3/uL (1.5-5.0); LYMPH % 9.2 % (24.0-44.0); MEAN CORPUSCULAR HEMOGLOBIN 29.9 pg (27.0-33.0); MEAN CORPUSCULAR HGB CONC 31.9 g/dl (32.0-36.5); MEAN CORPUSCULAR VOLUME 93.8 fl (80.0-96.0); MONO # 1.1 10^3/uL (0.0-0.8); MONO % 8.4 % (2.0-8.0); NEUTROPHILS # 10.6 10^3/uL (1.5-8.5); NEUTROPHILS % 80.6 % (36.0-66.0); PLATELET COUNT, AUTOMATED 372 10^3/uL (150-450); RED BLOOD COUNT 3.84 10^6/uL (4.30-6.10); WHITE BLOOD COUNT 13.2 10^3/uL (4.0-10.0)
--- NOTE | 2020-08-13 21:19 | REPVR ---
PROCEDURE INFORMATION: Exam: CT Head Without Contrast Exam date and time: 08/13/2020 8:50 PM Age: 74 years old Clinical indication: Altered mental status/memory loss TECHNIQUE: Imaging protocol: Computed tomography of the head without contrast. Radiation optimization: All CT scans at this facility use at least one of these dose optimization techniques: automated exposure control; mA and/or kV adjustment per patient size (includes targeted exams where dose is matched to clinical indication); or iterative reconstruction. COMPARISON: CT Head without contrast 04/03/2020 4:26 PM FINDINGS: Brain: Diffuse cerebellar atrophy. Bilateral basal ganglia calcifications. There is mild age related parenchymal volume loss. White matter changes are demonstrated in the subcortical, centrum semiovale and periventricular white matter consistent with chronic age related small vessel ischemic changes. Cerebral ventricles: The degree of ventricular dilatation is normal for age and/or degree of atrophy present. Bones/joints: Unremarkable. No acute fracture. Paranasal sinuses: Visualized sinuses are unremarkable. No fluid levels. Mastoid air cells: Visualized mastoid air cells are well aerated. Soft tissues: Unremarkable. IMPRESSION: 1. There is mild age related parenchymal volume loss. White matter changes are demonstrated in the subcortical, centrum semiovale and periventricular white matter consistent with chronic age related small vessel ischemic changes. 2. The degree of ventricular dilatation is normal for age and/or degree of atrophy present. 3. No acute intracranial findings. Electronically signed by: Leon Barrios On 08/13/2020 21:18:52 PM
--- NOTE | 2020-08-13 21:19 | REPVR ---
PROCEDURE INFORMATION: Exam: XR Chest Exam date and time: 08/13/2020 9:07 PM Age: 74 years old Clinical indication: Other: AMS; Additional info: Altered mental status TECHNIQUE: Imaging protocol: XR of the chest Views: 1 view. COMPARISON: CR Chest, 2 view PA, Lat 05/24/2020 2:17 PM FINDINGS: Lungs: Unremarkable. No consolidation. Pleural spaces: Unremarkable. No pleural effusion. No pneumothorax. Heart/Mediastinum: Unremarkable. No cardiomegaly. Bones/joints: Unremarkable. IMPRESSION: No acute findings. Electronically signed by: Leon Barrios On 08/13/2020 21:19:17 PM
[2020-08-13 21:32] LABS: OSMOLALITY SERUM 296 MOSM/KG (280-301)
[2020-08-13 21:56] LABS: ACETAMINOPHEN LEVEL < 2.0 UG/ML (10.0-30.0); ALBUMIN 2.8 GM/DL (3.2-5.2); ALT/SGPT 17 U/L (12-78); BILIRUBIN,DIRECT 0.1 MG/DL (0.0-0.2); BILIRUBIN,TOTAL 0.4 MG/DL (0.2-1.0); BLOOD UREA NITROGEN 16 MG/DL (7-18); CALCIUM LEVEL 8.5 MG/DL (8.8-10.2); CARBON DIOXIDE LEVEL 34 MEQ/L (21-32); CHLORIDE LEVEL 104 MEQ/L (98-107); CK-MB VALUE MASS 1.8 NG/ML (<3.6); CPK CREATINE PHOSPHOKINASE 180 U/L (39-308); CREATININE FOR GFR 0.92 MG/DL (0.70-1.30); ETHYL ALCOHOL (ETHANOL) < 0.003 % (0.000-0.010); GLOMERULAR FILTRATION RATE > 60.0 (>42); GLUCOSE, FASTING 120 MG/DL (70-100); MAGNESIUM LEVEL 2.4 MG/DL (1.8-2.4); POTASSIUM SERUM 3.9 MEQ/L (3.5-5.1); SALICYLATE LEVEL < 1.7 MG/DL (5.0-30.0); SODIUM LEVEL 141 MEQ/L (136-145); TOTAL PROTEIN 7.5 GM/DL (6.4-8.2); TROPONIN I < 0.02 NG/ML (< 0.10)
--- NOTE | 2020-08-13 22:25 | ECGEPIP ---
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
[2020-08-13] MEDS ORDERED: LR 1,000 ML IV ONE (23:05)
[2020-08-14 00:55] LABS: AMPHETAMINES LEVEL URINE NEGATIVE (NEGATIVE); BARBITURATES URINE NEGATIVE (NEGATIVE); BENZODIAZEPINES URINE NEGATIVE (NEGATIVE); CANNABINOIDS URINE NEGATIVE (NEGATIVE); COCAINE METABOLITE URINE NEGATIVE (NEGATIVE); METHADONE URINE NEGATIVE (NEGATIVE); OPIATES URINE POSITIVE (NEGATIVE); PHENCYCLIDINE URINE NEGATIVE (NEGATIVE)
[2020-08-14] MEDS ORDERED: VANCOMYCIN HCL 1,000 MG, VIAL MATE ADAPTER 1 EACH in NS 250 ML IV ONE ×7 (00:55→02:30)
[2020-08-14] MEDS ORDERED: CEFEPIME HCL 1 GM in D5W MINI-BAG PLUS 50 ML IV ONE (00:55)
[2020-08-14] MEDS ORDERED: MAALOX 30 ML SUSP *UDC PO PRN (01:25)
--- NOTE | 2020-08-14 01:41 | HPEPDOC ---
[facility] Medical History & Physical Date of Admission Aug 14, 2020 Date of Service: Aug 14, 2020 History and Physical CHIEF COMPLAINT: Weakness and fall HISTORY OF PRESENT ILLNESS: 74-year-old male wheelchair-bound history of lumbar tumor with progressive weakness by himself. History obtained from patient slightly different from history obtained from ED. The ED tells me that he was found down at home on the floor and there was reports of altered mentation and slurred speech and he was brought to the hospital. Patient tells me does not what happened. He seems certain that he was trying to transfer from his wheelchair to the toilet and had a slip and fell on the floor and called multiple friends and family members u ntil somebody was able to come and see him at home and EMS was called. Patient tells me he never hit his head and never lost consciousness at any point and he falls frequently at home. He denies any chest pain or shortness of breath abdominal pain at this time. Patient does endorse chills but denies fever. Says had chills all his life always cold. PAST MEDICAL/SURGICAL HISTORY: From chart review: History of seizure disorder Chronic back pain Neuropathic Charcot foot History of MRSA right foot Urinary retention from back surgery Chronic 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 Chronic osteomyelitis of distal fibula Resection of lumbar tumor 1979 Multiple back surgeries between 1979 and 1995 Left inguinal hernia repair Thoracic laminectomy/lumbar fusion Cyst drained on lower back November 2014 SOCIAL HISTORY: Denies alcohol use actively states he quit drinking in his 50s Denies tobacco use actively states he quit smoking when he was 31 Denies illicit drug use States lives by himself at home FAMILY HISTORY: Reviewed and none contributory to this admission ALLERGIES: Please see below. REVIEW OF SYSTEMS: 10 point review of systems complete all negative otherwise stated in HPI HOME MEDICATIONS: Please see below. PHYSICAL EXAMINATION: Constitutional: Awake and alert, in no apparent distress, comfortably and states he has chills ENT: Sclera are clear. Mucosa is moist. Respiratory: Lungs diminished breath sounds bilaterally Cardiovascular: Regular rate Gastrointestinal: Abdomen is soft, non distended, non tender Musculoskeletal: Good upper extremity strength bilaterally Neurologic: Difficult to assess patient not cooperating easily. There is no obv ious focal deficits and no slurred speech. Mental Status: A&O x3 Skin: Sacral decubitus ulcer present on admission perhaps stage III/4. Bilateral calcaneal ulcers present on heels stage II/3 with gangrenous changes. Additionally there is a stage III ulcer left foot medial malleolus area. LABORATORY DATA: See below. IMAGING: See chart MICROBIOLOGY: Please see below. ASSESSMENT/PLAN # Fall at home: Etiology is unclear and history is contradicting. From patient's story appears he just slipped out of his chair when transferring to the toilet. ED reports possible slurred speech reported and it's unclear if he lost consciousness although patient denies. His weakness and fall could also be r elated to metabolic etiology such as underlying infection. So far his feet and sacral ulcer at the most obvious sources of infection and will continue cefepime and vancomycin. Follow up on blood cultures ordered in the ED. I placed an order for advanced wound care consultation with Dr. Webber. He does have leukocytosis 13.2. - Patient does have a history of MRSA infection. - Because of questionable report of slurred speech will obtain MRI of head and if imaging is positive for stroke, will consult neuro and proceed with stroke workup. CT head negative. - Evaluation by PT/OT. PFS consult for possible placement. - Monitoring on telemetry. # Weakness: This is likely chronic secondary to debility superimposed with spinal stenosis as well as lack of social support. Plan as above. # Questionable UTI: His urinalysis is weakly positive at does have some leukoesterase and ketones but white cell count of only 2. Urine culture was reflexed. If this is true he will likely be covered by the antibiotics she is on. Follow up on the urine culture. # Seizure disorder: Continue home medications # DVT prophylaxis: Lovenox A [facility] Hospitalist Vital Signs Vital Signs Date Time Temp Pulse Resp B/P (MAP) Pulse Ox O2 Delivery O2 Flow Rate FiO2 08/13/20 22:50 91 97 08/13/20 22:45 16 108/56 (73) Room Air 08/13/20 20:46 98.4 Laboratory Data Labs 24H Laboratory Tests 2 08/13/20 20:52: Immature Granulocyte % (Auto) 0.5, Neutrophils (%) (Auto) 80.6H, Lymphocytes (%) (Auto) 9.2L, Monocytes (%) (Auto) 8.4H, Eosinophils (%) (Auto) 1.1, Basophils (%) (Auto) 0.2, Neutrophils # (Auto) 10.6H, Lymphocytes # (Auto) 1.2L, Monocytes # (Auto) 1.1H, Eosinophils # (Auto) 0.2, Basophils # (Auto) 0.0, Nucleated Red Blood Cells % (auto) 0.0, Anion Gap 3L, Glomerular Filtration Rate > 60.0, Osmolality 296, Lactic Acid Level 1.1, Calcium Level 8.5L, Magnesium Level 2.4, Total Bilirubin 0.4, Direct Bilirubin 0.1, Aspartate Amino Transf (AST/SGOT) 23, Alanine Aminotransferase (ALT/SGPT) 17, Alkaline Phosphatase 127H, Ammonia < 10, Total Creatine Kinase 180, Creatine Kinase MB 1.8, Creatine Kinase MB Relative Index 1.00, Troponin I < 0.02, Total Protein 7.5, Albumin 2.8L, Albumin/Globulin Ratio 0.6, Thyroid Stimulating Hormone (TSH) 1.820, Salicylates Level < 1.7L, Acetaminophen Level < 2.0L, Ethyl Alcohol Level < 0.003 08/13/20 21:07: Bedside Glucose (Misc Panel) 103, POC Troponin I (Misc) 0.01 08/14/20 00:17: Urine Color DEE, Urine Appearance CLEAR, Urine pH 5.0, Urine Specific [place] 1.021, Urine Protein 1+H, Urine Glucose (UA) NEGATIVE, Urine Ketones TRACEH, Urine Blood NEGATIVE, Urine Nitrite NEGATIVE, Urine Bilirubin NEGATIVE, Urine Urobilinogen 0.2, Urine Leukocyte Esterase TRACEH, Urine WBC (Auto) 2, Urine RBC (Auto) 2, Urine Hyaline Casts (Auto) 0, Urine Bacteria (Auto) 1+H, Urine Squamous Epithelial Cells 1, Urine Mucus (Auto) SMALL, Urine Sperm (Auto) , Urine Opiates Screen POSITIVEH, Urine Methadone Screen NEGATIVE, Urine Barbiturates Screen NEGATIVE, Urine Phencyclidine Screen NEGATIVE, Urine Amphetamines Screen NEGATIVE, Urine Benzodiazepines Screen NEGATIVE, Urine Cocaine Metabolite Screen NEGATIVE, Urine Cannabinoids Screen NEGATIVE CBC/BMP Laboratory Tests 08/13/20 20:52 Microbiology Microbiology 08/14/20 Urine Culture, Received Pending 08/13/20 Blood Culture, Received Pending Home Medications Scheduled Furosemide (Furosemide) 40 Mg Tablet, 40 MG PO BID 2ND DOSE @ 1400 Gabapentin (Gabapentin) 600 Mg Tablet, 600 MG PO BID Levetiracetam (Levetiracetam) 750 Mg Tablet, 750 MG PO DAILY Levetiracetam (Keppra) 1,000 Mg Tablet, 1,000 MG PO QHS Oxycodone HCl (Oxycontin) 30 Mg Tab.er.12h, 30 MG PO BID Potassium Chloride (Potassium Chloride) 20 Meq Tab.er.prt, 40 MEQ PO DAILY Pregabalin (Pregabalin) 150 Mg Capsule, 150 MG PO BID Allergies Coded Allergies: linezolid (Verified Allergy, Unknown, 04/23/19) A-FIB/CHADSVASC A-FIB History Current/History of A-Fib/PAF?: No DANIEL ANN MD Aug 14, 2020 01:41
[2020-08-14] MEDS ORDERED: VANCOMYCIN HCL 1,000 MG, VIAL MATE ADAPTER 1 EACH in NS 250 ML IV SCH (01:55)
[2020-08-14 02:45] LABS: RSV AMPLIFICATION NEGATIVE (NEGATIVE)
[2020-08-14] MEDS: CEFEPIME HCL 2 GM in D5W 50 ML IV SCH ×2 (04:52→15:56)
[2020-08-14 05:55] LABS: HEMATOCRIT 29.2 % (42.0-52.0); MEAN CORPUSCULAR HEMOGLOBIN 29.9 pg (27.0-33.0); MEAN CORPUSCULAR HGB CONC 31.8 g/dl (32.0-36.5); MEAN CORPUSCULAR VOLUME 93.9 fl (80.0-96.0); PLATELET COUNT, AUTOMATED 322 10^3/uL (150-450); RED BLOOD COUNT 3.11 10^6/uL (4.30-6.10); WHITE BLOOD COUNT 11.7 10^3/uL (4.0-10.0)
[2020-08-14 05:59] LABS: ALBUMIN 2.1 GM/DL (3.2-5.2); ALT/SGPT 15 U/L (12-78); BILIRUBIN,TOTAL 0.5 MG/DL (0.2-1.0); BLOOD UREA NITROGEN 14 MG/DL (7-18); CALCIUM LEVEL 7.6 MG/DL (8.8-10.2); CARBON DIOXIDE LEVEL 32 MEQ/L (21-32); CHLORIDE LEVEL 108 MEQ/L (98-107); CREATININE FOR GFR 0.54 MG/DL (0.70-1.30); GLOMERULAR FILTRATION RATE > 60.0 (>42); GLUCOSE, FASTING 106 MG/DL (70-100); MAGNESIUM LEVEL 2.4 MG/DL (1.8-2.4); POTASSIUM SERUM 3.7 MEQ/L (3.5-5.1); SODIUM LEVEL 145 MEQ/L (136-145)
[2020-08-14 06:00] LABS: HEMOGLOBIN 9.3 g/dl (13.5-17.5)
[2020-08-14] MEDS ORDERED: CLON0.5T2 PO (06:33)
--- NOTE | 2020-08-14 07:48 | REPVR ---
PROCEDURE INFORMATION: Exam: MR Head Without Contrast Exam date and time: 08/14/2020 7:32 AM Age: 74 years old Clinical indication: Altered mental status/memory loss and other: Multiple fall; Confusion or disorientation; Additional info: Rule out new stroke TECHNIQUE: Imaging protocol: MR of the head without contrast. COMPARISON: CT Head without contrast 08/13/2020 8:49 PM FINDINGS: Brain: There is no extra-axial collection or intra-axial mass. Mild to moderate diffuse volume loss is within the range of normal for patient age. Normal parenchymal signal is grossly preserved. There is no diffusion restriction. Cerebral ventricles: Normal. No ventriculomegaly. Bones/joints: Unremarkable. Paranasal sinuses: Normal as visualized. No acute sinusitis. Mastoid air cells: Normal as visualized. No mastoid effusion. Orbital cavity: Unremarkable. Soft tissues: Unremarkable. IMPRESSION: No acute findings. Electronically signed by: Jemma Kaur On 08/14/2020 07:47:53 AM
[2020-08-14] MEDS ORDERED: GABAPENTIN 300 MG CAP PO SCH (09:00)
[2020-08-14] MEDS: DOCUSATE SODIUM 100MG CAPSULE PO SCH ×2 (09:03→20:02)
[2020-08-14] MEDS: POTASSIUM CHLORIDE 10 MEQ SR TABLET PO SCH (09:04)
[2020-08-14] MEDS: levETIRAcetam 250MG TABLET (KEPPRA) PO SCH ×2 (09:04→20:02)
[2020-08-14] MEDS: FUROSEMIDE 40 MG TAB PO SCH (09:04)
[2020-08-14] MEDS: ENOXAPARIN 40MG/0.4ML SYRINGE (J1650 PER 10MG) SC SCH (09:05)
[2020-08-14] MEDS: PREGABALIN 75 MG CAP(LYRICA) PO SCH ×2 (09:07→20:02)
[2020-08-14 10:17] VITALS: BP 106/58
[2020-08-14] MEDS ORDERED: SLF 3 ML SYR IV PRN (10:50)
[2020-08-14 11:04] VITALS: BP 90/53
[2020-08-14] MEDS: SLF 3 ML SYR IV SCH ×2 (13:29→20:03)
[2020-08-14] MEDS: VANCOMYCIN HCL 750 MG, VIAL MATE ADAPTER 1 EACH in NS 250 ML IV SCH (13:29)
[2020-08-14] MEDS: VANCOMYCIN HCL 500 MG in D5W MINI-BAG PLUS 100 ML IV SCH (14:39)
[2020-08-14 16:37] VITALS: BP 118/56
[2020-08-14] MEDS: ACETAMINOPHEN TAB 650MG DOSE (2X325MG) PO PRN (17:04)
--- NOTE | 2020-08-14 17:10 | REP ---
INDICATION: suspected osteomyelitis COMPARISON: None. TECHNIQUE: There are four views of the right foot and there are four views of the left foot. FINDINGS: Right foot: There is diffuse demineralization. There is diffuse circumferential soft tissue edema. There are no lytic, blastic or destructive skeletal changes. There is no acute fracture or dislocation. The joint spaces are unremarkable except for mild joint space narrowing diffusely. Left foot: There is diffuse demineralization. There is diffuse circumferential soft tissue edema. There are no lytic, blastic or destructive skeletal changes. There is an old healed fracture of the great toe metatarsal. No acute fractures are identified. The joint spaces are unremarkable except for mild joint space narrowing diffusely. IMPRESSION: Negative bilateral soft tissue edema. No skeletal findings to suggest osteomyelitis. Diffuse demineralization. Old healed fracture of the left great toe metatarsal. No calcifications or foreign bodies.. <Electronically signed by Ezequiel Price > 08/14/20 [id number]
--- NOTE | 2020-08-14 18:38 | REP ---
INDICATION: swelling, r/o DVT. COMPARISON: None. TECHNIQUE: Bilateral lower extremity duplex venous ultrasound. FINDINGS: The deep veins are anechoic and fully compressible from the groin to the popliteal fossa in the left and right lower extremity. Color flow imaging is homogeneous. Spectral Doppler interrogation demonstrates intact respiratory variation in flow and normal manual augmentation of flow. There is no evidence of deep vein thrombosis. IMPRESSION: Negative bilateral lower extremity duplex venous ultrasound. No evidence of deep vein thrombosis. <Electronically signed by Jacobo Padilla > 08/14/20 [id number]
[2020-08-14 19:14] LABS: NT-PRO BNP 401 PG/ML (<450)
[2020-08-14] MEDS ORDERED: FUROSEMIDE 40MG/4ML VIAL (J1940) IV ONE (19:15)
[2020-08-14 20:00] VITALS: BP 110/51
[2020-08-14] MEDS ORDERED: MIRALAX *UNIT DOSE* 17GM PACKET PO PRN (22:15)
--- NOTE | 2020-08-14 23:38 | REPVR ---
PROCEDURE INFORMATION: Exam: XR Abdomen Exam date and time: 08/14/2020 10:53 PM Age: 74 years old Clinical indication: Difficulty placing rectal tube. TECHNIQUE: Imaging protocol: XR of the abdomen. Views: Frontal supine view of the abdomen. 1 View. COMPARISON: 1. CT ANGIO ABDOMINAL ARTERIES 07/21/2016 5:[address] ABD PELVIS W/O CONTRAST 04/03/2020 5:16:02 PM FINDINGS: Gastrointestinal tract: There is a large amount of formed stool in the left side of the colon and rectum. No dilated loops of bowel are noted. Vasculature: An inferior vena cava filter is noted below the expected level of the renal veins. Bones/joints: An intramedullary sourav at is noted in the right femoral shaft with interlocking screws. There is a dextroscoliosis at the thoracolumbar junction. There has been a bilateral posterolateral fusion at the L4-L5 and L5-S1 levels. IMPRESSION: 1. Large amount of formed stool in the left side of the colon and rectum. 2. No radiographic evidence for a bowel obstruction. COMMENTS: For patients with an IVC filter, recommend assessment for a management plan for the patients IVC filter. If there is no established management plan, recommend referral to an interventional clinician on a nonemergent basis for evaluation. Electronically signed by: Feliberto Mauro On 08/14/2020 23:38:58 PM
[2020-08-15] VITALS (7 sets, daily range): BP systolic 95–123; BP diastolic 51–60
[2020-08-15] MEDS: MOM 30ML SUSPENSION UDC PO PRN (01:48)
[2020-08-15] MEDS: VANCOMYCIN HCL 500 MG in D5W MINI-BAG PLUS 100 ML IV SCH (02:05)
[2020-08-15] MEDS: VANCOMYCIN HCL 750 MG, VIAL MATE ADAPTER 1 EACH in NS 250 ML IV SCH (03:19)
[2020-08-15] MEDS: CEFEPIME HCL 2 GM in D5W 50 ML IV SCH ×2 (04:37→14:08)
[2020-08-15] MEDS: SLF 3 ML SYR IV SCH ×3 (04:37→23:28)
[2020-08-15 06:04] LABS: BASO % 0.2 % (0.0-1.0); EOS # 0.2 10^3/uL (0.0-0.5); EOS % 1.7 % (0.0-3.0); HEMATOCRIT 28.3 % (42.0-52.0); HEMOGLOBIN 9.3 g/dl (13.5-17.5); MEAN CORPUSCULAR HEMOGLOBIN 30.4 pg (27.0-33.0); MEAN CORPUSCULAR HGB CONC 32.9 g/dl (32.0-36.5); MEAN CORPUSCULAR VOLUME 92.5 fl (80.0-96.0); MONO # 0.7 10^3/uL (0.0-0.8); MONO % 7.9 % (2.0-8.0); NEUTROPHILS # 7.4 10^3/uL (1.5-8.5); NEUTROPHILS % 78.8 % (36.0-66.0); PLATELET COUNT, AUTOMATED 334 10^3/uL (150-450); RED BLOOD COUNT 3.06 10^6/uL (4.30-6.10); WHITE BLOOD COUNT 9.4 10^3/uL (4.0-10.0)
[2020-08-15 06:32] LABS: ALBUMIN 1.9 GM/DL (3.2-5.2); ALT/SGPT 15 U/L (12-78); BILIRUBIN,TOTAL 0.5 MG/DL (0.2-1.0); BLOOD UREA NITROGEN 13 MG/DL (7-18); CALCIUM LEVEL 7.9 MG/DL (8.8-10.2); CARBON DIOXIDE LEVEL 31 MEQ/L (21-32); CHLORIDE LEVEL 108 MEQ/L (98-107); CREATININE FOR GFR 0.59 MG/DL (0.70-1.30); GLOMERULAR FILTRATION RATE > 60.0 (>42); GLUCOSE, FASTING 104 MG/DL (70-100); MAGNESIUM LEVEL 2.2 MG/DL (1.8-2.4); POTASSIUM SERUM 3.4 MEQ/L (3.5-5.1); SODIUM LEVEL 143 MEQ/L (136-145); TOTAL PROTEIN 6.2 GM/DL (6.4-8.2)
[2020-08-15 07:07] LABS: ERYTHROCYTE SEDIMENTATION RATE 107 mm/hr (0-20)
[2020-08-15] MEDS ORDERED: POTASSIUM CHLORIDE 10% LIQ 20 MEQ/15 ML UDC PO ONE (08:00)
[2020-08-15] MEDS: ENOXAPARIN 40MG/0.4ML SYRINGE (J1650 PER 10MG) SC SCH (08:15)
[2020-08-15] MEDS: PREGABALIN 75 MG CAP(LYRICA) PO SCH ×2 (08:15→20:10)
[2020-08-15] MEDS: levETIRAcetam 250MG TABLET (KEPPRA) PO SCH ×2 (08:15→20:10)
[2020-08-15] MEDS: DOCUSATE SODIUM 100MG CAPSULE PO SCH ×2 (08:16→20:09)
[2020-08-15] MEDS: POTASSIUM CHLORIDE 10 MEQ SR TABLET PO SCH (08:16)
[2020-08-15] MEDS: FUROSEMIDE 40 MG TAB PO SCH (08:16)
--- NOTE | 2020-08-15 10:08 | CR ---
ADVANCED WOUND CARE CONSULTATION VIA TELEMEDICINE DATE: 08/14/2020 CONSULTATION ORDERED BY: Mark Hightower MD REASON FOR CONSULTATION: This consult was ordered by Dr. Hightower regarding right and left heel wounds and sacral coccyx wound. HISTORY OF PRESENT ILLNESS: A 74-year-old male admitted for urinary tract infection, febrile, started on I.V. antibiotics, found to have wounds involving his right and left heels and his sacral coccyx area. The patient lives alone and apparently has declined in health and is unable to, at present, take care of himself. On physical examination, the right heel shows a wound measuring 1.5 cm x 1.0 cm with erythema involving the periwound, which is blanchable. The wound depth is 0.2 cm. Treatment for this wound includes foam dressing and a heel float boot for offloading. Dressing to be changed every other day. The left heel has a large unstageable wound pressure injury, measuring 6.8 cm x 3.8 cm. There is full thickness, dry black eschar present. There is no drainage noted. Periwound shows no erythema, maceration or ischemic change. On the left medial malleolus, there is a wound measuring 2.1 cm x 1.2 cm with a wound depth of 0.2 cm and on the left Achilles tendon region, there is a wound measuring 3.4 cm x 1.6 cm with a wound depth of 0.3 cm. Both of these wounds show dry eschar in place without deep structures noticeable. Treatment for all three wound at this time: heel float boot for offloading and protective foams applied to all three wounds. I have discussed the case with Dr. Olivarez of podiatry, who will do a bedside debridement of all wounds. Indication to remove the black eschar is fluctuation, drainage or deterioration of the wound itself. Once this has been accomplished, dressing changes should be Hydrofera-Blue transfer with an extra-absorb dressing and heel float boot. These dressings to be changed on an every other day basis. On the sacral coccyx area, there is a stage 4 pressure injury measuring 11.0 cm x 8.5 cm with a depth of 1.4 cm. At the 3 o'clock position, there is tunneling of 1.6 cm. There is palpable bone at the base of this wound. Initial treatment: Alginate with a covered foam dressing. A surgical consult is indicated and this can be performed at bedside utilizing local anesthesia to further debrided the wound, which will facilitate dressing changes. Change in position every 2 hours required and a ROHO cushion if the patient is to be out of bed. Patient's nutrition should be supplemented with Ensure and Mook, and amino acid supplement . MTDD
--- NOTE | 2020-08-15 13:22 | IPNPDOC ---
Date Seen The patient was seen on 08/15/20. Progress Note SUBJECTIVE: Patient was seen and examined at bedside. No acute events overnight. States the diarrhea has improved. Has no chest pressures breath, nausea, vomiting, diarrhea. Afebrile overnight. OBJECTIVE PHYSICAL EXAMINATION: VITAL SIGNS: please see below General: NAD, comfortable HEENT: PERRLA, EOMI, sclerae clear Neck: supple, normal ROM, no JVD Respiratory: lungs CTAB, no wheeze, no rales, no crackles CVS: RRR, normal S1, S2, no murmurs Abdo: soft, no masses, no hepatosplenomegaly, BS+, no rebound tenderness Back: sacrum has a stave IV pressure ulcer. 11 x 8.5 x 1.4 cm. Palpable bone at base of wound. Extremities: R heel wound 1.5 cm x 1.0 cm with surrounding erythma. L heel large unstageable pressure injury ~7 cm in length. Black escar. L medial malleolus 2 x 1 cm wound. L achilles shows wound 3.4 cm x 1.5 cm. Neuro: Paraplegia of lower extremities. Good upper extremity strength bilaterally. Cranial nerves II through XII are intact. Psych: calm, cooperative, AAO x 3 LABORATORY DATA, IMAGING STUDIES, MICROBIOLOGY: Please see below. 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 There was concern for slurred speech. MRI of the brain did not reveal any evidence for CVA. Patient currently being treated for a large stage IV sacral ulcer as well as numerous pressure ulcers on his feet. PROBLEMS: # Fall at home: patient describes fall as mechanical. CT head, MRI brain show no evidence for CVA or bleeding. Patient is now AAO x 3. Has good strength in bilateral upper extremities. #Stage IV sacral ulcer: evaluated by Dr. Webber. Recommends surgical debridement. D/w Dr. Tanner, will see patient. Complicated by ongoing diarrhea. Rectal tube dislodged. KUB showing stool burden. Possible overflow diarrhea. General surgery recommendations are greatly appreciated. #Diarrhea: copious, watery. Patient reports ongoing for ~1 month. C diff PCR ordered. will f/u. Attempted rectal tube, dislodged. Complicating sacral wound management. #L heel, achilles and medial malleolus wounds: podiatry consult, Dr. Olivarez for debridement. Hydophera blue dressing. #R heel pressure injury: heel float boot, foam dressing. # Weakness: This is likely chronic secondary to debility superimposed with spinal stenosis as well as lack of social support. Plan as above. # Questionable UTI: urine culture pending. # Seizure disorder: Continue home medications # DVT prophylaxis: Lovenox #Dispo: pending clinical improvement. PT/OT eval. VS, I&O, 24H, Fishbone Vital Signs/I&O Vital Signs Date Time Temp Pulse Resp B/P (MAP) Pulse Ox O2 Delivery O2 Flow Rate FiO2 08/15/20 08:00 98.7 82 18 123/57 (79) 98 Room Air I&O- Last 24 Hours up to 6 AM 08/15/20 06:00 Intake Total 2775 ml Output Total 1350 ml Balance 1425 ml Laboratory Data 24H LABS Laboratory Tests 2 08/14/20 13:35: Methicillin-Resist S.aureus DNA PCR DETECTEDA 08/15/20 00:45: Vancomycin Level Trough 17.5 08/15/20 05:41: Immature Granulocyte % (Auto) 0.4, Neutrophils (%) (Auto) 78.8H, Lymphocytes (%) (Auto) 11.0L, Monocytes (%) (Auto) 7.9, Eosinophils (%) (Auto) 1.7, Basophils (%) (Auto) 0.2, Neutrophils # (Auto) 7.4, Lymphocytes # (Auto) 1.0L, Monocytes # (Auto) 0.7, Eosinophils # (Auto) 0.2, Basophils # (Auto) 0.0, Nucleated Red Blood Cells % (auto) 0.0, Erythrocyte Sedimentation Rate 107H, Anion Gap 4L, Glomerular Filtration Rate > 60.0, Calcium Level 7.9L, Magnesium Level 2.2, Total Bilirubin 0.5, Aspartate Amino Transf (AST/SGOT) 17, Alanine Aminotransferase (ALT/SGPT) 15, Alkaline Phosphatase 85, C-Reactive Protein, Quantitative 14.80H, Total Protein 6.2L, Albumin 1.9L, Albumin/Globulin Ratio 0.4 CBC/BMP Laboratory Tests 08/15/20 05:41 Microbiology Microbiology 08/14/20 Urine Culture, Received Pending 08/13/20 Blood Culture - Preliminary, Resulted No growth after 24 hours . All specim... 08/13/20 Blood Culture - Preliminary, Resulted No growth after 24 hours . All specim... AUDREY RIVERA MD Aug 15, 2020 13:22
--- NOTE | 2020-08-15 13:36 | CR.PDOC ---
General Date of Consultation: Aug 15, [address] Jones HISTORY OF PRESENT ILLNESS: The patient is a 74-year-old male who was admitted for UTI and fall. The patient is nonambulatory, wheelchair bound with history of lumbar spinal cord tumor status post resection in 1979 with subsequent multiple back surgeries with paraplegia of bilateral lower extremities. History of chronic urinary retention and incontinence of stool from resection of spinal cord tumor and previous back surgeries. The patient has sacral decubitus ulcer which was evaluated by wound care, Dr. Webber 08/14/20 with recommendation for surgical consultation for possible sacral wound debridement. ALLERGIES: Please see below. HOME MEDICATIONS: Please see below. PAST MEDICAL HISTORY: History of seizure disorder H/o Charcot foot Urinary retention from back surgery Neuropathy H/O Spinal cord tumor S/P resection 1979, Multiple back surgeries between 1979 and 1995, chronic back pain, paresis lower extremities. Wheelchair bound, nonambulatory. Chronic osteomyelitis of distal fibula Left inguinal hernia repair Cyst drained on lower back November 2014 SOCIAL HISTORY: The patient states he was in a rehabilitation early this year for 2 months then was recently discharged and had home care services to assist him with management of his wounds however 2 weeks ago Public health nurses were canceled because he had not been seen in 2 years by his primary care provider. States he lives alone. Tobacco use: Denies ETOH: Denies REVIEW OF SYSTEMS: As noted in HPI otherwise 10 point review of systems unremarkable. PHYSICAL EXAMINATION: VITAL SIGNS: Please see below. GENERAL APPEARANCE: Chronically ill-appearing but in no acute distress at this time. Resting in bed. HEENT: MMM. RESPIRATORY: No wheezing. CARDIOVASCULAR: Regular rate and rhythm ABDOMEN: Soft, healed surgical scars noted. Ventral hernia noted, no tenderness, erythema. Skin. Foam dressing on sacral ulcer, sacral ulcer with no surrounding erythema or purulent drainage. Yellow fibrinous tissue noted but no black discoloration or eschar. Does not appear infected. EXTREMITIES: 1+ edema lower extremities. NEUROLOGICAL: Alert and oriented. paraplegia bilateral lower extremities, moving BL UEs. LABORATORY DATA: Please see below. ASSESSMENT/PLAN: Sacral ulcer. Patient is reviewed and examined as per Dr. Jones this morning. Currently patient remains on IV cefepime. Continue wound care as ordered. Try to keep area clean and dry. This is challenging as the patient is incontinent of stool which is a chronic issue for him. Tentative plan is for bedside debridement as per Dr. Jones 08/16/20. The patient verbalizes understanding and agreement. Vital Signs/I&O Vital Signs Date Time Temp Pulse Resp B/P (MAP) Pulse Ox O2 Delivery O2 Flow Rate FiO2 08/15/20 08:00 98.7 82 18 123/57 (79) 98 Room Air I&O- Last 24 Hours up to 6 AM 08/15/20 06:00 Intake Total 2775 ml Output Total 1350 ml Balance 1425 ml Laboratory Data Labs 24H Laboratory Tests 2 08/14/20 13:35: Methicillin-Resist S.aureus DNA PCR DETECTEDA 08/15/20 00:45: Vancomycin Level Trough 17.5 08/15/20 05:41: Immature Granulocyte % (Auto) 0.4, Neutrophils (%) (Auto) 78.8H, Lymphocytes (%) (Auto) 11.0L, Monocytes (%) (Auto) 7.9, Eosinophils (%) (Auto) 1.7, Basophils (%) (Auto) 0.2, Neutrophils # (Auto) 7.4, Lymphocytes # (Auto) 1.0L, Monocytes # (Auto) 0.7, Eosinophils # (Auto) 0.2, Basophils # (Auto) 0.0, Nucleated Red Blood Cells % (auto) 0.0, Erythrocyte Sedimentation Rate 107H, Anion Gap 4L, Glomerular Filtration Rate > 60.0, Calcium Level 7.9L, Magnesium Level 2.2, Total Bilirubin 0.5, Aspartate Amino Transf (AST/SGOT) 17, Alanine Aminotransferase (ALT/SGPT) 15, Alkaline Phosphatase 85, C-Reactive Protein, Quantitative 14.80H, Total Protein 6.2L, Albumin 1.9L, Albumin/Globulin Ratio 0.4 08/15/20 12:48: CBC/BMP Laboratory Tests 08/15/20 05:41 Microbiology Microbiology 08/14/20 Urine Culture, Received Pending 08/13/20 Blood Culture - Preliminary, Resulted No growth after 24 hours . All specim... 08/13/20 Blood Culture - Preliminary, Resulted No growth after 24 hours . All specim... Allergies Coded Allergies: linezolid (Verified Allergy, Unknown, 04/23/19) Home Medications Scheduled Furosemide (Furosemide) 40 Mg Tablet, 40 MG PO DAILY, (Reported) Gabapentin (Gabapentin) 600 Mg Tablet, 600 MG PO BID, (Reported) PATIENT'S DAUGHTER STATES PATIENT TAKES MEDICATION. HAS NOT BEEN FILLED SINCE DECEMBER 2019 Levetiracetam (Levetiracetam) 750 Mg Tablet, 750 MG PO DAILY, (Reported) Levetiracetam (Keppra) 1,000 Mg Tablet, 1,000 MG PO QHS, (Reported) Oxycodone HCl (Oxycontin) 30 Mg Tab.er.12h, 30 MG PO BID, (Reported) Potassium Chloride (Potassium Chloride) 20 Meq Tab.er.prt, 20 MEQ PO DAILY, (Reported) Pregabalin (Pregabalin) 150 Mg Capsule, 150 MG PO BID, (Reported) Nicole Lindsay Aug 15, 2020 13:36 COLEEN JONES MD Aug 27, 2020 13:19
[2020-08-15] MEDS: VANCOMYCIN HCL 1,000 MG, VIAL MATE ADAPTER 1 EACH in NS 250 ML IV SCH (14:56)
--- NOTE | 2020-08-15 16:18 | CR ---
CONSULTATION DATE: 08/15/2020 REASON FOR CONSULTATION: Bilateral foot ulcerations. HISTORY OF PRESENT ILLNESS: Fan Markham is a pleasant 74-year-old male who was admitted due to urinary tract infection (UTI) and fall due to altered mental status. I was consulted by Dr. Webber due to ulcerations in his feet. Patient is nonambulatory. He is wheelchair bound. States he has numbness in both feet and does not feel them at all. He lives at home. MEDICAL HISTORY: Significant for: 1. Seizure disorder. 2. History of Charcot foot. 3. Urinary retention. 4. Neuropathy. 5. History of spinal cord tumor resection with paraplegia. 6. History of osteomyelitis. SURGICAL HISTORY: 1. Spinal cord tumor. 2. Hernia repair. 3. Cyst drainage. SOCIAL HISTORY: Denies tobacco. Denies alcohol use. ALLERGIES: LINEZOLID. REVIEW OF SYSTEMS: He denies nausea, vomiting, fever, or chills. Vital signs are reviewed. He has been febrile. On August 14, maximum temperature 101.1, current 98.6. White blood cell count today is 9.4, ESR 107. Lower extremity examination: There is moderate edema on both feet. The left heel has a large, unstable pressure ulceration with eschar, which is somewhat loose, as well as a smaller ulceration along the Achilles tendon and medial malleolus. On the right there is ulceration to lateral heel with some necrotic tissue. ASSESSMENT: Patient with peripheral neuropathy and pressure ulcerations. TREATMENT: Wound were debrided with #10 blade and dermal curette. Recommend offloading with foam relief boots and wound care as ordered by Dr. Webber. Patient should have followup with him in the wound care center. He does not need to see me if he is seeing Dr. Webber once discharged.
[2020-08-16] MEDS: VANCOMYCIN HCL 1,000 MG, VIAL MATE ADAPTER 1 EACH in NS 250 ML IV SCH (02:17)
[2020-08-16] MEDS: CEFEPIME HCL 2 GM in D5W 50 ML IV SCH ×2 (03:46→15:11)
[2020-08-16 06:00] VITALS: BP 129/82
[2020-08-16 06:52] LABS: BASO % 0.3 % (0.0-1.0); EOS # 0.2 10^3/uL (0.0-0.5); EOS % 2.2 % (0.0-3.0); HEMOGLOBIN 9.6 g/dl (13.5-17.5); MEAN CORPUSCULAR HEMOGLOBIN 30.3 pg (27.0-33.0); MEAN CORPUSCULAR HGB CONC 33.1 g/dl (32.0-36.5); MEAN CORPUSCULAR VOLUME 91.5 fl (80.0-96.0); MONO # 0.8 10^3/uL (0.0-0.8); MONO % 7.7 % (2.0-8.0); NEUTROPHILS # 8.1 10^3/uL (1.5-8.5); NEUTROPHILS % 79.3 % (36.0-66.0); PLATELET COUNT, AUTOMATED 351 10^3/uL (150-450); RED BLOOD COUNT 3.17 10^6/uL (4.30-6.10); WHITE BLOOD COUNT 10.3 10^3/uL (4.0-10.0)
[2020-08-16] MEDS: SLF 3 ML SYR IV SCH ×3 (06:58→21:31)
[2020-08-16 07:29] LABS: ALBUMIN 1.8 GM/DL (3.2-5.2); ALT/SGPT 17 U/L (12-78); BILIRUBIN,TOTAL 0.5 MG/DL (0.2-1.0); BLOOD UREA NITROGEN 11 MG/DL (7-18); CALCIUM LEVEL 7.9 MG/DL (8.8-10.2); CARBON DIOXIDE LEVEL 29 MEQ/L (21-32); CHLORIDE LEVEL 110 MEQ/L (98-107); CREATININE FOR GFR 0.53 MG/DL (0.70-1.30); GLOMERULAR FILTRATION RATE > 60.0 (>42); GLUCOSE, FASTING 81 MG/DL (70-100); MAGNESIUM LEVEL 2.3 MG/DL (1.8-2.4); POTASSIUM SERUM 4.3 MEQ/L (3.5-5.1); SODIUM LEVEL 142 MEQ/L (136-145); TOTAL PROTEIN 6.4 GM/DL (6.4-8.2)
[2020-08-16 07:38] LABS: ERYTHROCYTE SEDIMENTATION RATE 109 mm/hr (0-20)
[2020-08-16] MEDS: DOCUSATE SODIUM 100MG CAPSULE PO SCH ×2 (09:51→21:31)
[2020-08-16] MEDS: PREGABALIN 75 MG CAP(LYRICA) PO SCH ×2 (09:51→21:31)
[2020-08-16] MEDS: levETIRAcetam 250MG TABLET (KEPPRA) PO SCH ×2 (09:51→21:31)
[2020-08-16] MEDS: POTASSIUM CHLORIDE 10 MEQ SR TABLET PO SCH (09:51)
[2020-08-16] MEDS: FUROSEMIDE 40 MG TAB PO SCH (09:51)
[2020-08-16] MEDS: ENOXAPARIN 40MG/0.4ML SYRINGE (J1650 PER 10MG) SC SCH (09:52)
[2020-08-16] MEDS ORDERED: FUROSEMIDE 40MG/4ML VIAL (J1940) IV ONE (12:55)
--- NOTE | 2020-08-16 13:06 | IPNPDOC ---
Date Seen The patient was seen on 08/16/20. Progress Note SUBJECTIVE: Patient was seen and examined at bedside. No acute events overnight. Continues to have diarrhea. Has no chest pressures breath, nausea, vomiting, diarrhea. Afebrile overnight. OBJECTIVE PHYSICAL EXAMINATION: VITAL SIGNS: please see below General: NAD, comfortable HEENT: PERRLA, EOMI, sclerae clear Neck: supple, normal ROM, no JVD Respiratory: lungs CTAB, no wheeze, no rales, no crackles CVS: RRR, normal S1, S2, no murmurs Abdo: soft, no masses, no hepatosplenomegaly, BS+, no rebound tenderness Back: sacrum has a stave IV pressure ulcer. 11 x 8.5 x 1.4 cm. Palpable bone at base of wound. Extremities: R heel wound 1.5 cm x 1.0 cm with surrounding erythma. L heel large unstageable pressure injury ~7 cm in length. Black escar. L medial malleolus 2 x 1 cm wound. L achilles shows wound 3.4 cm x 1.5 cm. Neuro: Paraplegia of lower extremities. Good upper extremity strength bila terally. Cranial nerves II through XII are intact. Psych: calm, cooperative, AAO x 3 LABORATORY DATA, IMAGING STUDIES, MICROBIOLOGY: Please see below. 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 There was concern for slurred speech. MRI of the brain did not reveal any evidence for CVA. Patient currently being treated for a large stage IV sacral ulcer as well as numerous pressure ulcers on his feet. PROBLEMS: # Fall at home: patient describes fall as mechanical. CT head, MRI brain show no evidence for CVA or bleeding. Patient is now AAO x 3. Has good strength in bilateral upper extremities. #Stage IV sacral ulcer: evaluated by Dr. Webber. Recommends surgical debridement. D/w Dr. Tanner, will see patient. Complicated by ongoing diarrhea. Rectal tube dislodged. KUB showing stool burden. Possible overflow diarrhea. General surgery recommendations are greatly appreciated. Planned for debridement by Dr. Smith on 08/16/20. #C diff: PCR positive on 08/16/20 for C diff. Start vancomycin PO 125 mg q6h. Monitor for response, add dificid if no improvement. #BLE edema: check 2D echo. Lasix 40 mg daily. prn doses of lasix based on daily exam. #L heel, achilles and medial malleolus wounds: podiatry consult, Dr. Olivarez for debridement. Hydophera blue dressing. #R heel pressure injury: heel float boot, foam dressing. # Weakness: This is likely chronic secondary to debility superimposed with spinal stenosis as well as lack of social support. Plan as above. # Questionable UTI: urine culture pending. # Seizure disorder: Continue home medications # DVT prophylaxis: Lovenox #Dispo: pending clinical improvement. PT/OT eval. VS, I&O, 24H, Fishbone Vital Signs/I&O Vital Signs Date Time Temp Pulse Resp B/P (MAP) Pulse Ox O2 Delivery O2 Flow Rate FiO2 08/16/20 06:00 98.6 77 17 129/82 (98) 94 Room Air I&O- Last 24 Hours up to 6 AM 08/16/20 05:59 Intake Total 1105 ml Output Total 1150 ml Balance -45 ml Laboratory Data 24H LABS Laboratory Tests 2 08/16/20 06:33: Immature Granulocyte % (Auto) 0.5, Neutrophils (%) (Auto) 79.3H, Lymphocytes (%) (Auto) 10.0L, Monocytes (%) (Auto) 7.7, Eosinophils (%) (Auto) 2.2, Basophils (%) (Auto) 0.3, Neutrophils # (Auto) 8.1, Lymphocytes # (Auto) 1.0L, Monocytes # (Auto) 0.8, Eosinophils # (Auto) 0.2, Basophils # (Auto) 0.0, Nucleated Red Blood Cells % (auto) 0.0, Erythrocyte Sedimentation Rate 109H, Anion Gap 3L, Glomerular Filtration Rate > 60.0, Calcium Level 7.9L, Magnesium Level 2.3, Total Bilirubin 0.5, Aspartate Amino Transf (AST/SGOT) 20, Alanine Aminotransferase (ALT/SGPT) 17, Alkaline Phosphatase 83, C-Reactive Protein, Quantitative 13.10H, Total Protein 6.4, Albumin 1.8L, Albumin/Globulin Ratio 0.4 CBC/BMP Laboratory Tests 08/16/20 06:33 Microbiology Microbiology 08/14/20 Urine Culture - Final, Complete Enterococcus Faecalis 08/13/20 Blood Culture - Preliminary, Resulted No Growth after 48 hours. All Specime... 08/13/20 Blood Culture - Preliminary, Resulted No Growth after 48 hours. All Specime... AUDREY RIVERA MD Aug 16, 2020 13:06
[2020-08-16] MEDS: VANCOMYCIN HCL 750 MG, VIAL MATE ADAPTER 1 EACH in NS 250 ML IV SCH ×2 (16:35→17:34)
[2020-08-16 16:56] LABS: CLOSTRIDIUM DIFFICILE PCR POSITIVE (NEGATIVE)
[2020-08-16 18:00] VITALS: BP 128/66
[2020-08-16] MEDS: VANCOMYCIN ORAL SOL 250MG/5ML ORAL SYRINGE PO SCH ×2 (18:16→23:24)
[2020-08-16] MEDS: ACETAMINOPHEN TAB 650MG DOSE (2X325MG) PO PRN (21:42)
[2020-08-16 22:00] VITALS: BP 123/66
[2020-08-17] MEDS: CEFEPIME HCL 2 GM in D5W 50 ML IV SCH ×2 (03:21→16:45)
[2020-08-17 06:00] VITALS: BP 129/70
[2020-08-17] MEDS: SLF 3 ML SYR IV SCH ×3 (06:40→21:20)
[2020-08-17] MEDS: VANCOMYCIN ORAL SOL 250MG/5ML ORAL SYRINGE PO SCH ×3 (06:40→18:08)
[2020-08-17 06:43] LABS: BASO % 0.3 % (0.0-1.0); EOS # 0.4 10^3/uL (0.0-0.5); EOS % 3.4 % (0.0-3.0); HEMATOCRIT 30.2 % (42.0-52.0); LYMPH # 1.2 10^3/uL (1.5-5.0); LYMPH % 11.4 % (24.0-44.0); MEAN CORPUSCULAR HGB CONC 33.1 g/dl (32.0-36.5); MEAN CORPUSCULAR VOLUME 90.7 fl (80.0-96.0); MONO # 0.7 10^3/uL (0.0-0.8); MONO % 6.9 % (2.0-8.0); NEUTROPHILS # 7.9 10^3/uL (1.5-8.5); NEUTROPHILS % 77.5 % (36.0-66.0); PLATELET COUNT, AUTOMATED 401 10^3/uL (150-450); RED BLOOD COUNT 3.33 10^6/uL (4.30-6.10); WHITE BLOOD COUNT 10.2 10^3/uL (4.0-10.0)
[2020-08-17 06:52] LABS: ALBUMIN 1.9 GM/DL (3.2-5.2); ALT/SGPT 19 U/L (12-78); BILIRUBIN,TOTAL 0.4 MG/DL (0.2-1.0); BLOOD UREA NITROGEN 12 MG/DL (7-18); CALCIUM LEVEL 7.7 MG/DL (8.8-10.2); CARBON DIOXIDE LEVEL 29 MEQ/L (21-32); CHLORIDE LEVEL 109 MEQ/L (98-107); GLOMERULAR FILTRATION RATE > 60.0 (>42); GLUCOSE, FASTING 84 MG/DL (70-100); MAGNESIUM LEVEL 2.1 MG/DL (1.8-2.4); SODIUM LEVEL 142 MEQ/L (136-145); TOTAL PROTEIN 5.9 GM/DL (6.4-8.2)
[2020-08-17 07:16] LABS: ERYTHROCYTE SEDIMENTATION RATE 108 mm/hr (0-20)
--- NOTE | 2020-08-17 09:22 | REP ---
INDICATION: SACRAL WOUND WITH EXPOSED BONE. COMPARISON: Comparison supine portable radiograph of the abdomen and pelvis August 14, 2020.. TECHNIQUE: Five views. FINDINGS: AP view of the pelvis demonstrates diffuse osteopenia. No fracture is seen in the pelvis or sacrum. There is an intramedullary sourav in place in the proximal femur on the right. There is bilateral chondrocalcinosis and femoroacetabular spurring consistent with osteoarthritis. No hip fracture is seen. IMPRESSION: No acute fracture noted. Intramedullary sourav in the proximal femur on the right. Diffuse osteoporosis. Rowley catheter is visible. <Electronically signed by Jacobo Padilla > 08/17/20 0990
[2020-08-17] MEDS: levETIRAcetam 250MG TABLET (KEPPRA) PO SCH ×2 (09:43→21:19)
[2020-08-17] MEDS: PREGABALIN 75 MG CAP(LYRICA) PO SCH ×2 (09:43→21:19)
[2020-08-17] MEDS: POTASSIUM CHLORIDE 10 MEQ SR TABLET PO SCH (09:43)
[2020-08-17] MEDS: DOCUSATE SODIUM 100MG CAPSULE PO SCH ×2 (09:43→21:00)
[2020-08-17] MEDS: FUROSEMIDE 40 MG TAB PO SCH (09:44)
[2020-08-17] MEDS: ENOXAPARIN 40MG/0.4ML SYRINGE (J1650 PER 10MG) SC SCH (09:44)
[2020-08-17 14:00] VITALS: BP 125/67
--- NOTE | 2020-08-17 14:45 | ECHO ---
DATE OF PROCEDURE: 08/16/2020 Age: 74 Gender: Male Height: 188 cm Weight: 105 kg REFERRING PHYSICIAN: Quentin Rodriguez MD INDICATION: Localized edema, unspecified. MEASUREMENTS: 2D Measurements: Intraventricular septum 0.98 cm Posterior wall 0.99 cm Left ventricle diastole 4.2 cm Aortic root 3.5 cm Left atrium 3.4 cm Left atrial volume index 16 cm Aortic annulus 2.0 cm Doppler Measurements: No aortic stenosis No aortic regurgitation Aortic valve velocity 106 cm/s LVOT velocity 102 cm/s Trace mitral regurgitation No mitral stenosis Mitral E velocity 68.1 cm/s Mitral A velocity 72.4 cm/s Mitral deceleration time 174 msec Mild tricuspid regurgitation Estimated right ventricular systolic pressure 30-35 mmHg Pulmonary artery acceleration time 124 msec (suggestive of normal PA systolic pressure). MITRAL ANNULAR TISSUE DOPPLER E prime septal 9.1 cm/s, E prime lateral 11.9 cm/s DESCRIPTION: Rhythm was sinus. This was a moderately technically difficult echocardiogram. No pericardial effusion. This was a 2D, M-mode, color flow Doppler, and pulsed wave Doppler examination including mitral annular tissue Doppler. CONCLUSIONS: 1. Normal left ventricle internal dimensions and wall thickness. Normal regional LV wall motion and wall thickening. Normal LV systolic function. LVEF 65%-70% by visual estimate. Normal LV diastolic function for age. 2. Suggestive of estimated right ventricle systolic pressure to be near the upper limits of normal to mildly elevated. Normal right ventricle size and systolic function. Right atrium appeared normal in size. 3. Very mild aortic valve sclerosis of a 3-cuspid aortic valve. No aortic regurgitation. 4. Very mild mitral annular calcification. Trace mitral regurgitation. 5. Overall otherwise normal appearing echocardiogram Doppler findings. 6. Moderately technically difficult echocardiogram. [facility]
--- NOTE | 2020-08-17 15:06 | IPNPDOC ---
Text Note Date of Service The patient was seen on 08/17/20. NOTE I saw Mr. Glass to reevaluate his backside today. He tells me his diarrhea is better no during my examination he still has soft unformed stool that he passed that he is not aware of. It's problematic as the does not have sensation and have no control of his bowel movements. He tells me that for years he is been disimpacting himself manually to be able to go to bathroom. He currently is C. difficile positive. It's unclear whether this is new or old. He tells me that while he was at home for the past 2 months he has been having diarrhea. The wound is also not new as at least for the past year he tells me somebody has been taking care of of it. I was being asked to debride the wound. There was concern whether the fever or infection has from the wound itself. By examining the wound he has a 3 cm round wound that is the at the midline sacrococcygeal area. There is slough and necrotic tissue. Hard to say how deep it is probably stage IV but right now it's unstageable. With the more concerning thing is his got a wide area of skin slough inferiorly goes to the anal verge which to me tells me that he has been having this problems with diarrhea and the skin being exposed for prolonged periods of time with loose stools with some chemical irritation of the area. I see no evidence of any cellulitis or deep uncontained abscess work and needs debridement but does not look infected. I think now that a wound has started therapy with scheduling to be problematic to heal the area and thus the diarrhea is better controlled, to he has a more meticulous nursing care that would change him so often which may not be feasible logistically or his stool gets divergent. Long-term I think he is better off with a colostomy. He has a large left lower quadrant hernia I think from his back surgery , previously repaired with a mesh. And clear if the mesh is intraperitoneal or on the abdominal wall. I could not pick it up from reviewing his CT. More likely he will need a transverse colostomy to be placed on the right side. For now I think is adequate enough to just do wet-to-dry packing of the wound and debride the wound every time we changed the packing. They can do this every time he gets changed and cleaned up of his bowel movements are at least twice a day once the diarrhea has resolved. At some point we can debride the wound but at this point unlikely wall matter acutely up until his diarrhea improves. Outcome reevaluate him next week. He has not made a decision as to whether he wants a colostomy or not. VS,Fishbone, I+O VS, Fishbone, I+O Laboratory Tests 08/17/20 05:49 Vital Signs Date Time Temp Pulse Resp B/P (MAP) Pulse Ox O2 Delivery O2 Flow Rate FiO2 08/17/20 06:00 97.8 77 18 129/70 (89) 94 Room Air I&O- Last 24 Hours up to 6 AM 08/17/20 06:00 Intake Total 1610 ml Output Total 1200 ml Balance 410 ml COLEEN JONES MD Aug 17, 2020 15:06
[2020-08-17] MEDS: VANCOMYCIN HCL 750 MG, VIAL MATE ADAPTER 1 EACH in NS 250 ML IV SCH ×2 (16:00→17:00)
[2020-08-17] MEDS ORDERED: LIDOCAINE W/EPINEPHRINE 1% 20ML VIAL SC ONE (17:00)
--- NOTE | 2020-08-17 18:14 | CR.PDOC ---
Plastic Surgery Consultation Date of Consultation 08/17/20 History and Physical CONSULT REPORT FOR: Medical service, Wound care service REASON FOR CONSULTATION: Sacral wound HISTORY OF PRESENT ILLNESS: Chronic sacral wound. Patient was admitted for UTI, dizziness. Patient lives alone. He is wheelchair bound. He has little knowledge about his wound status. He denies acute pain in the area, but significant discomfort when examining it. PAST MEDICAL HISTORY: History of seizure disorder Chronic back pain Neuropathic Charcot foot History of MRSA right foot Urinary retention from back surgery Chronic 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 Chronic osteomyelitis of distal fibula Resection of lumbar tumor 1979 Multiple back surgeries between 1979 and 1995 Left inguinal hernia repair Thoracic laminectomy/lumbar fusion Cyst drained on lower back November 2014 ALLERGIES: Please see below. FAMILY HISTORY: non contributory. HOME MEDICATIONS: Please see below. REVIEW OF SYSTEMS: GENERAL: Denies chills, reports weight gain,. HEENT: Denies blurred vision and double vision. Denies ear symptoms. Denies hoarseness. NECK: Denies any neck pain]. CARDIOVASCULAR: Denies chest pain and palpitations. MUSCULOSKELETAL: paraplegia. SKIN: sacral wound. NEUROLOGIC: Denies headache, stroke and transient ischemic attack. PSYCHIATRIC: Denies anxiety and depression. ENDOCRINE: Denies thyroid disease. HEMATOLOGY/ONCOLOGY: Denies bleeding or clotting disorder. HEART: Denies any chest pains, palpitations, paroxysmal dyspnea, orthopnea. PULMONARY: Denies chronic cough, dyspnea and wheezing. GASTROINTESTINAL: Denies rectal bleeding, family history of colon cancer, constipation, diarrhea, dysphagia, heartburn and jaundice. GENITOURINARY: Denies dysuria, frequency, hematuria and nocturia. ENDOCRINE: Denies polydipsia, polyphagia, polyuria, heat or cold intolerance. INFECTIOUS: Denies any recent upper respiratory tract infection, UTI, need for use of antibiotics. NUTRITION: Reports good appetite. PHYSICAL EXAMINATION: VITALS SIGNS: Please see below. GENERAL APPEARANCE:Patient seen, laying in bed, awake, alert, and oriented. Comfortable, in no acute distress. SKIN: Warm and moist. Sacrum/Coccyx stage 4 pressure wound: 11.0 cm x 8.5 cm x 1.4 cm. At the 3 o'clock position, there is tunneling of 1.6 cm. 80% necrosis. No odor, no drainage. Bone palpable. LUNGS: Clear to auscultation bilaterally. No wheezing appreciated. HEART: No chest wall abnormalities. Regular rate and rhythm with no murmurs appreciated. ABDOMEN: Abdomen is soft, non-tender, non-distended. EXTREMITIES: Extremities have no deformities. No edema identified. No calf tenderness. LABORATORY DATA: Please see below. IMPRESSION: Stage 4 sacral wound with active necrosis and diarrhea. PLANS: MRI sacrum, r/o osteomyelitis. Start with daily and prn Santyl dressing changes. Control diarrhea. General surgery consult appreciated and agree with necessity of diverting colostomy for proper wound healing. Continue with antibiotics per ID Will reassess wound in 2-3 days for possible surgical debridement. Finding discussed with patient and medical team. Vital Signs Vital Signs Date Time Temp Pulse Resp B/P (MAP) Pulse Ox O2 Delivery O2 Flow Rate FiO2 08/17/20 14:00 98.7 84 18 125/67 (86) 97 Room Air I&Os I&O- Last 24 Hours up to 6 AM 08/17/20 06:00 Intake Total 1610 ml Output Total 1200 ml Balance 410 ml Laboratory Data Labs 24H Laboratory Tests 2 08/17/20 05:49: Immature Granulocyte % (Auto) 0.5, Neutrophils (%) (Auto) 77.5H, Lymphocytes (%) (Auto) 11.4L, Monocytes (%) (Auto) 6.9, Eosinophils (%) (Auto) 3.4H, Basophils (%) (Auto) 0.3, Neutrophils # (Auto) 7.9, Lymphocytes # (Auto) 1.2L, Monocytes # (Auto) 0.7, Eosinophils # (Auto) 0.4, Basophils # (Auto) 0.0, Nucleated Red Blood Cells % (auto) 0.0, Erythrocyte Sedimentation Rate 108H, Anion Gap 4L, Glomerular Filtration Rate > 60.0, Calcium Level 7.7L, Magnesium Level 2.1, Total Bilirubin 0.4, Aspartate Amino Transf (AST/SGOT) 15, Alanine Aminotransferase (ALT/SGPT) 19, Alkaline Phosphatase 86, C-Reactive Protein, Quantitative 12.40H, Total Protein 5.9L, Albumin 1.9L, Albumin/Globulin Ratio 0.5 08/17/20 14:55: Vancomycin Level Trough 15.3 CBC/BMP Laboratory Tests 08/17/20 05:49 Microbiology Microbiology 08/14/20 Urine Culture - Final, Complete Enterococcus Faecalis 08/13/20 Blood Culture - Preliminary, Resulted No Growth after 72 hours. All specime... 08/13/20 Blood Culture - Preliminary, Resulted No Growth after 72 hours. All specime... Home Medications Scheduled Furosemide (Furosemide) 40 Mg Tablet, 40 MG PO DAILY, (Reported) Gabapentin (Gabapentin) 600 Mg Tablet, 600 MG PO BID, (Reported) PATIENT'S DAUGHTER STATES PATIENT TAKES MEDICATION. HAS NOT BEEN FILLED SINCE DECEMBER 2019 Levetiracetam (Levetiracetam) 750 Mg Tablet, 750 MG PO DAILY, (Reported) Levetiracetam (Keppra) 1,000 Mg Tablet, 1,000 MG PO QHS, (Reported) Oxycodone HCl (Oxycontin) 30 Mg Tab.er.12h, 30 MG PO BID, (Reported) Potassium Chloride (Potassium Chloride) 20 Meq Tab.er.prt, 20 MEQ PO DAILY, (Reported) Pregabalin (Pregabalin) 150 Mg Capsule, 150 MG PO BID, (Reported) Allergies Coded Allergies: linezolid (Verified Allergy, Unknown, 04/23/19) CHRISTOPHER HERNANDEZ DO Aug 17, 2020 18:13
[2020-08-17 19:30] VITALS: BP 113/67
[2020-08-17] MEDS: ACETAMINOPHEN TAB 650MG DOSE (2X325MG) PO PRN (21:19)
--- NOTE | 2020-08-17 23:40 | IPNPDOC ---
Date Seen The patient was seen on 08/17/20. Progress Note SUBJECTIVE: Patient was seen and examined at bedside. No acute events overnight. Continues to have diarrhea. Has no chest pressures breath, nausea, vomiting, diarrhea. Afebrile overnight. OBJECTIVE PHYSICAL EXAMINATION: VITAL SIGNS: please see below General: NAD, comfortable HEENT: PERRLA, EOMI, sclerae clear Neck: supple, normal ROM, no JVD Respiratory: lungs CTAB, no wheeze, no rales, no crackles CVS: RRR, normal S1, S2, no murmurs Abdo: soft, no masses, no hepatosplenomegaly, BS+, no rebound tenderness Back: sacrum has a stave IV pressure ulcer. 11 x 8.5 x 1.4 cm. Palpable bone at base of wound. Extremities: R heel wound 1.5 cm x 1.0 cm with surrounding erythma. L heel large unstageable pressure injury ~7 cm in length. Black escar. L medial malleolus 2 x 1 cm wound. L achilles shows wound 3.4 cm x 1.5 cm. Neuro: Paraplegia of lower extremities. Good upper extremity strength bila terally. Cranial nerves II through XII are intact. Psych: calm, cooperative, AAO x 3 LABORATORY DATA, IMAGING STUDIES, MICROBIOLOGY: Please see below. 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 There was concern for slurred speech. MRI of the brain did not reveal any evidence for CVA. Patient currently being treated for a large stage IV sacral ulcer as well as numerous pressure ulcers on his feet. PROBLEMS: # Fall at home: patient describes fall as mechanical. CT head, MRI brain show no evidence for CVA or bleeding. Patient is now AAO x 3. Has good strength in bilateral upper extremities. #Stage IV sacral ulcer: evaluated by Dr. Webber. Recommends surgical debridement. D/w Dr. Tanner, will see patient. Complicated by ongoing diarrhea. Rectal tube dislodged. KUB showing stool burden. Possible overflow diarrhea. Plastic surgery consulted, Dr. Joiner. Debridement defered. Obtain MRI sacrum, r/o osteomyelitis. Treat diarrhea 2/2 c diff. General surgery consult greatly appreciated, likely necessity for diverting colostomy to help with proper wound healing. #C diff: PCR positive on 08/16/20 for C diff. Start vancomycin PO 125 mg q6h. Monitor for response, add dificid if no improvement. #BLE edema: check 2D echo. Lasix 40 mg daily. prn doses of lasix based on daily exam. #L heel, achilles and medial malleolus wounds: podiatry consult, Dr. Olivarez for debridement. Hydophera blue dressing. #R heel pressure injury: heel float boot, foam dressing. # Weakness: This is likely chronic secondary to debility superimposed with spinal stenosis as well as lack of social support. Plan as above. # Questionable UTI: urine culture pending. # Seizure disorder: Continue home medications # DVT prophylaxis: Lovenox #Dispo: pending clinical improvement. PT/OT eval. VS, I&O, 24H, Fishbone Vital Signs/I&O Vital Signs Date Time Temp Pulse Resp B/P (MAP) Pulse Ox O2 Delivery O2 Flow Rate FiO2 08/17/20 19:30 99.3 89 20 113/67 (82) 97 Room Air I&O- Last 24 Hours up to 6 AM 08/17/20 06:00 Intake Total 1610 ml Output Total 1200 ml Balance 410 ml Laboratory Data 24H LABS Laboratory Tests 2 08/17/20 05:49: Immature Granulocyte % (Auto) 0.5, Neutrophils (%) (Auto) 77.5H, Lymphocytes (%) (Auto) 11.4L, Monocytes (%) (Auto) 6.9, Eosinophils (%) (Auto) 3.4H, Basophils (%) (Auto) 0.3, Neutrophils # (Auto) 7.9, Lymphocytes # (Auto) 1.2L, Monocytes # (Auto) 0.7, Eosinophils # (Auto) 0.4, Basophils # (Auto) 0.0, Nucleated Red Blood Cells % (auto) 0.0, Erythrocyte Sedimentation Rate 108H, Anion Gap 4L, Gl omerular Filtration Rate > 60.0, Calcium Level 7.7L, Magnesium Level 2.1, Total Bilirubin 0.4, Aspartate Amino Transf (AST/SGOT) 15, Alanine Aminotransferase (ALT/SGPT) 19, Alkaline Phosphatase 86, C-Reactive Protein, Quantitative 12.40H, Total Protein 5.9L, Albumin 1.9L, Albumin/Globulin Ratio 0.5 08/17/20 14:55: Vancomycin Level Trough 15.3 CBC/BMP Laboratory Tests 08/17/20 05:49 Microbiology Microbiology 08/14/20 Urine Culture - Final, Complete Enterococcus Faecalis 08/13/20 Blood Culture - Preliminary, Resulted No Growth after 72 hours. All specime... 08/13/20 Blood Culture - Preliminary, Resulted No Growth after 72 hours. All specime... AUDRYE RIVERA MD Aug 17, 2020 23:40
[2020-08-18] MEDS: VANCOMYCIN ORAL SOL 250MG/5ML ORAL SYRINGE PO SCH ×4 (00:16→18:43)
[2020-08-18] MEDS: CEFEPIME HCL 2 GM in D5W 50 ML IV SCH ×2 (02:18→15:22)
[2020-08-18 05:46] VITALS: BP 124/66
[2020-08-18] MEDS: SLF 3 ML SYR IV SCH ×3 (06:16→21:18)
[2020-08-18 07:23] LABS: BASO % 0.3 % (0.0-1.0); EOS # 0.4 10^3/uL (0.0-0.5); EOS % 3.4 % (0.0-3.0); HEMOGLOBIN 9.8 g/dl (13.5-17.5); LYMPH # 1.3 10^3/uL (1.5-5.0); MEAN CORPUSCULAR HGB CONC 32.7 g/dl (32.0-36.5); MEAN CORPUSCULAR VOLUME 91.7 fl (80.0-96.0); MONO # 0.7 10^3/uL (0.0-0.8); MONO % 6.6 % (2.0-8.0); NEUTROPHILS # 8.3 10^3/uL (1.5-8.5); NEUTROPHILS % 77.1 % (36.0-66.0); PLATELET COUNT, AUTOMATED 415 10^3/uL (150-450); RED BLOOD COUNT 3.27 10^6/uL (4.30-6.10); WHITE BLOOD COUNT 10.8 10^3/uL (4.0-10.0)
[2020-08-18 07:45] LABS: ALBUMIN 1.9 GM/DL (3.2-5.2); ALT/SGPT 17 U/L (12-78); BILIRUBIN,TOTAL 0.3 MG/DL (0.2-1.0); BLOOD UREA NITROGEN 13 MG/DL (7-18); CALCIUM LEVEL 7.5 MG/DL (8.8-10.2); CARBON DIOXIDE LEVEL 28 MEQ/L (21-32); CHLORIDE LEVEL 111 MEQ/L (98-107); CREATININE FOR GFR 0.46 MG/DL (0.70-1.30); GLOMERULAR FILTRATION RATE > 60.0 (>42); GLUCOSE, FASTING 85 MG/DL (70-100); MAGNESIUM LEVEL 2.3 MG/DL (1.8-2.4); POTASSIUM SERUM 4.1 MEQ/L (3.5-5.1); SODIUM LEVEL 143 MEQ/L (136-145)
[2020-08-18 07:56] LABS: ERYTHROCYTE SEDIMENTATION RATE 106 mm/hr (0-20)
[2020-08-18] MEDS: DOCUSATE SODIUM 100MG CAPSULE PO SCH ×2 (09:00→21:00)
[2020-08-18] MEDS ORDERED: PROHANCE 279.3MG/ML 5ML VIAL As Ordered ONE (09:54)
[2020-08-18] MEDS ORDERED: PROHANCE 279.3MG/ML 15ML VIAL As Ordered ONE (09:55)
[2020-08-18] MEDS: levETIRAcetam 250MG TABLET (KEPPRA) PO SCH ×2 (10:57→21:18)
[2020-08-18] MEDS: PREGABALIN 75 MG CAP(LYRICA) PO SCH ×2 (10:57→21:17)
[2020-08-18] MEDS: POTASSIUM CHLORIDE 10 MEQ SR TABLET PO SCH (10:57)
[2020-08-18] MEDS: FUROSEMIDE 40 MG TAB PO SCH (10:57)
[2020-08-18] MEDS: ENOXAPARIN 40MG/0.4ML SYRINGE (J1650 PER 10MG) SC SCH (10:58)
--- NOTE | 2020-08-18 11:13 | REPVR ---
PROCEDURE INFORMATION: Exam: MR Lumbar Spine Without and With Contrast Exam date and time: 08/18/2020 10:05 AM Age: 74 years old Clinical indication: Low back pain; Prior surgery; Surgery date: 6+ months; Surgery type: Lower back surgery many years ago. ; Additional info: Concern for osteo at sacrum, please extend below ls TECHNIQUE: Imaging protocol: Multiplanar magnetic resonance images of the lumbar spine without and with intravenous contrast. Contrast material: PROHANCE; Contrast volume: 20 ml; Contrast route: INTRAVENOUS (IV); COMPARISON: 1. MRI-Spine, L.S. without con 11/07/2014 5:[address] ABD PELVIS W/O CONTRAST 04/03/2020 5:16:02 PM FINDINGS: There is a large cyst in the spinal canal extending from T10 through L1-L2 with marked dilatation of the spinal canal and scalloping of the adjacent bony margins of the posterior vertebra and pedicles. This communicates through a large bony defect in the posterior elements with a dorsal soft tissue extending into the subcutaneous fat consistent with a large pseudomeningocele. This is larger than comparison MRI but is similar to comparison more recent CT measuring approximately 15 cm length x 4.7 cm anterior-posterior dimension x 7 cm transverse dimension. There is no peripheral enhancement. There is a catheter coiled within the pseudomeningocele and extending into the thecal sac at the T12 level. There is signal seen within the T11-T12 disc space and this appears to have a tract toward the pseudomeningocele and suspected to be extension of fluid from the pseudomeningocele and enlarged thecal sac. However, signal can also be seen with infection and correlate clinically. On comparison CT, air was seen within the disc space at this level. There are no well-defined erosive changes, marrow changes, or endplate enhancement to definitively indicate infection. There is exaggerated lumbar lordosis. There is stable grade 1 anterolisthesis at L5-S1 with uncovering and mild bulging of vertebral disc with stable mild bilateral neural foraminal narrowing. There is also mild disc bulge at L4-L5 with mild neural foraminal narrowing. Remainder of neural foramen are patent. There is no spinal stenosis. There is a right perineural cyst / focal dural ectasia at the L4-L5 level which is scalloping the adjacent lamina and facet. The nerve roots are peripheral in location suggesting arachnoiditis as before. Visualized sacrum shows no abnormal marrow edema or enhancement to suggest definite osteomyelitis. There is nonspecific presacral edema as seen on prior abdominal CT. Again seen is left renal cyst. IMPRESSION: 1. 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 There is fluid in T11-T12 disc space which may be fluid extension from the pseudomeningocele and cyst but cannot completely exclude infection. No additional findings to definitively indicate infection. Correlate clinically. 2. No evidence of sacral osteomyelitis in visualized portions of sacrum. Stable nonspecific presacral edema compared to prior CT of abdomen and pelvis. Electronically signed by: Birgit Gama On 08/18/2020 11:12:53 AM
--- NOTE | 2020-08-18 12:10 | IPNPDOC ---
Date Seen The patient was seen on 08/18/20. Progress Note SUBJECTIVE: Patient was seen and examined at bedside. No acute events overnight. Continues to have diarrhea. Has no chest pressures breath, nausea, vomiting, diarrhea. Afebrile overnight. OBJECTIVE PHYSICAL EXAMINATION: VITAL SIGNS: please see below General: NAD, comfortable HEENT: PERRLA, EOMI, sclerae clear Neck: supple, normal ROM, no JVD Respiratory: lungs CTAB, no wheeze, no rales, no crackles CVS: RRR, normal S1, S2, no murmurs Abdo: soft, no masses, no hepatosplenomegaly, BS+, no rebound tenderness Back: sacrum has a stave IV pressure ulcer. 11 x 8.5 x 1.4 cm. Palpable bone at base of wound. Extremities: R heel wound 1.5 cm x 1.0 cm with surrounding erythma. L heel large unstageable pressure injury ~7 cm in length. Black escar. L medial malleolus 2 x 1 cm wound. L achilles shows wound 3.4 cm x 1.5 cm. Neuro: Paraplegia of lower extremities. Good upper extremity strength bila terally. Cranial nerves II through XII are intact. Psych: calm, cooperative, AAO x 3 LABORATORY DATA, IMAGING STUDIES, MICROBIOLOGY: Please see below. MRI sacrum w and wo contrast (08/18/20): 1. 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 There is fluid in T11-T12 disc space which may be fluid extension from the pseudomeningocele and cyst but cannot completely exclude infection. No additional findings to definitively indicate infection. Correlate clinically. 2. No evidence of sacral osteomyelitis in visualized portions of sacrum. Stable nonspecific presacral edema compared to prior CT of abdomen and pelvis. 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 There was concern for slurred speech. MRI of the brain did not reveal any evidence for CVA. Patient currently being treated for a large stage IV sacral ulcer as well as numerous pressure ulcers on his feet. PROBLEMS: # Fall at home: patient describes fall as mechanical. CT head, MRI brain show no evidence for CVA or bleeding. Patient is now AAO x 3. Has good strength in bilateral upper extremities. #Stage IV sacral ulcer: evaluated by Dr. Webber. Recommends surgical debridement. D/w Dr. Tanner, will see patient. Complicated by ongoing diarrhea. Rectal tube dislodged. KUB showing stool burden. Possible overflow diarrhea. Plastic surgery consulted, Dr. Joiner. Debridement defered. Obtain MRI sacrum, r/o osteomyelitis. Treat diarrhea 2/2 c diff. General surgery consult greatly appreciated, likely necessity for diverting colostomy to help with proper wound healing. - MRI reviewed. Large cyst from T10-T12, likely a large pseudomeningocele, 15 cm x 4.7. cm. Fluid in the T11-T12 disc space, which may represent fluid extension from pseudomeningocele and cyst but cannot complete r/o infection - No evidence of sacral osteomyelitis in visualized portion of sacrum. - unfortunately, no spinal #C diff: PCR positive on 08/16/20 for C diff. Start vancomycin PO 125 mg q6h. Monitor for response, add dificid if no improvement. #BLE edema: check 2D echo. Lasix 40 mg daily. prn doses of lasix based on daily exam. #L heel, achilles and medial malleolus wounds: podiatry consult, Dr. Olivarez for debridement. Hydophera blue dressing. #R heel pressure injury: heel float boot, foam dressing. # Weakness: This is likely chronic secondary to debility superimposed with spinal stenosis as well as lack of social support. Plan as above. # Questionable UTI: urine culture pending. # Seizure disorder: Continue home medications # DVT prophylaxis: Lovenox #Dispo: pending clinical improvement. PT/OT eval. VS, I&O, 24H, Fishbone Vital Signs/I&O Vital Signs Date Time Temp Pulse Resp B/P (MAP) Pulse Ox O2 Delivery O2 Flow Rate FiO2 08/18/20 05:46 97.6 78 20 124/66 (85) 96 Room Air I&O- Last 24 Hours up to 6 AM 08/18/20 06:00 Intake Total 1885 ml Output Total 1900 ml Balance -15 ml Laboratory Data 24H LABS Laboratory Tests 2 08/17/20 14:55: Vancomycin Level Trough 15.3 08/18/20 06:42: Immature Granulocyte % (Auto) 0.6, Neutrophils (%) (Auto) 77.1H, Lymphocytes (%) (Auto) 12.0L, Monocytes (%) (Auto) 6.6, Eosinophils (%) (Auto) 3.4H, Basophils (%) (Auto) 0.3, Neutrophils # (Auto) 8.3, Lymphocytes # (Auto) 1.3L, Monocytes # (Auto) 0.7, Eosinophils # (Auto) 0.4, Basophils # (Auto) 0.0, Nucleated Red Blood Cells % (auto) 0.0, Erythrocyte Sedimentation Rate 106H, Anion Gap 4L, Glomerular Filtration Rate > 60.0, Calcium Level 7.5L, Magnesium Level 2.3, Total Bilirubin 0.3, Aspartate Amino Transf (AST/SGOT) 13, Alanine Aminotransferase (ALT/SGPT) 17, Alkaline Phosphatase 84, C-Reactive Protein, Quantitative 8.30H, Total Protein 6.0L, Albumin 1.9L, Albumin/Globulin Ratio 0.5 CBC/BMP Laboratory Tests 08/18/20 06:42 Microbiology Microbiology 08/14/20 Urine Culture - Final, Complete Enterococcus Faecalis 08/13/20 Blood Culture - Preliminary, Resulted No Growth after 72 hours. All specime... 08/13/20 Blood Culture - Preliminary, Resulted No Growth after 72 hours. All specime... AUDREY RIVERA MD Aug 18, 2020 12:10
[2020-08-18 14:00] VITALS: BP 109/57
[2020-08-18] MEDS: VANCOMYCIN HCL 750 MG, VIAL MATE ADAPTER 1 EACH in NS 250 ML IV SCH ×2 (16:27→17:37)
[2020-08-18 20:00] VITALS: BP 113/59
[2020-08-18] MEDS: ACETAMINOPHEN TAB 650MG DOSE (2X325MG) PO PRN (21:18)
[2020-08-19] MEDS: VANCOMYCIN ORAL SOL 250MG/5ML ORAL SYRINGE PO SCH ×3 (00:47→12:01)
[2020-08-19] MEDS: CEFEPIME HCL 2 GM in D5W 50 ML IV SCH ×2 (03:24→15:26)
[2020-08-19 05:54] VITALS: BP 125/68
[2020-08-19] MEDS: ACETAMINOPHEN TAB 650MG DOSE (2X325MG) PO PRN ×3 (06:09→21:14)
[2020-08-19] MEDS: SLF 3 ML SYR IV SCH ×3 (06:10→21:14)
[2020-08-19 07:08] LABS: BASO % 0.5 % (0.0-1.0); EOS # 0.4 10^3/uL (0.0-0.5); EOS % 4.6 % (0.0-3.0); HEMATOCRIT 31.6 % (42.0-52.0); HEMOGLOBIN 10.3 g/dl (13.5-17.5); LYMPH # 1.5 10^3/uL (1.5-5.0); LYMPH % 17.7 % (24.0-44.0); MEAN CORPUSCULAR HEMOGLOBIN 29.9 pg (27.0-33.0); MEAN CORPUSCULAR HGB CONC 32.6 g/dl (32.0-36.5); MEAN CORPUSCULAR VOLUME 91.9 fl (80.0-96.0); MONO # 0.6 10^3/uL (0.0-0.8); MONO % 6.6 % (2.0-8.0); NEUTROPHILS # 5.9 10^3/uL (1.5-8.5); NEUTROPHILS % 69.5 % (36.0-66.0); PLATELET COUNT, AUTOMATED 474 10^3/uL (150-450); RED BLOOD COUNT 3.44 10^6/uL (4.30-6.10); WHITE BLOOD COUNT 8.4 10^3/uL (4.0-10.0)
[2020-08-19 07:37] LABS: ALT/SGPT 15 U/L (12-78); BILIRUBIN,TOTAL 0.4 MG/DL (0.2-1.0); BLOOD UREA NITROGEN 12 MG/DL (7-18); C REACTIVE PROTEIN QUANTITATIV 8.23 MG/DL (0.00-0.30); CARBON DIOXIDE LEVEL 28 MEQ/L (21-32); CHLORIDE LEVEL 109 MEQ/L (98-107); CREATININE FOR GFR 0.55 MG/DL (0.70-1.30); GLOMERULAR FILTRATION RATE > 60.0 (>42); GLUCOSE, FASTING 81 MG/DL (70-100); MAGNESIUM LEVEL 2.3 MG/DL (1.8-2.4); POTASSIUM SERUM 4.2 MEQ/L (3.5-5.1); SODIUM LEVEL 142 MEQ/L (136-145); TOTAL PROTEIN 6.2 GM/DL (6.4-8.2)
[2020-08-19 07:52] LABS: ERYTHROCYTE SEDIMENTATION RATE 106 mm/hr (0-20)
[2020-08-19] MEDS: FUROSEMIDE 40 MG TAB PO SCH (08:18)
[2020-08-19] MEDS: ENOXAPARIN 40MG/0.4ML SYRINGE (J1650 PER 10MG) SC SCH (08:18)
[2020-08-19] MEDS: levETIRAcetam 250MG TABLET (KEPPRA) PO SCH ×2 (08:18→21:13)
[2020-08-19] MEDS: PREGABALIN 75 MG CAP(LYRICA) PO SCH ×2 (08:18→21:13)
[2020-08-19] MEDS: POTASSIUM CHLORIDE 10 MEQ SR TABLET PO SCH (08:19)
[2020-08-19] MEDS: DOCUSATE SODIUM 100MG CAPSULE PO SCH (08:30)
--- NOTE | 2020-08-19 13:36 | IPNPDOC ---
Date Seen The patient was seen on 08/19/20. Progress Note SUBJECTIVE: Patient was seen and examined at bedside. Comfortable, no acute events overnight. States the diarrhea has improved. Denies fevers, chills, chest pain, nausea, vomiting. Concerning findings seen on MRI from , unable to rule out an infection at the T11-T12 disc level. I discussed these the option of transfer with the patient to [facility] after speaking to neurosurgery [facility]. Patient has declined transfer outside of [facility], and does not wish any intervention on his back. OBJECTIVE PHYSICAL EXAMINATION: VITAL SIGNS: please see below General: NAD, comfortable HEENT: PERRLA, EOMI, sclerae clear Neck: supple, normal ROM, no JVD Respiratory: lungs CTAB, no wheeze, no rales, no crackles CVS: RRR, normal S1, S2, no murmurs Abdo: soft, no masses, no hepatosplenomegaly, BS+, no rebound tenderness Back: sacrum has a stave IV pressure ulcer. 11 x 8.5 x 1.4 cm. Palpable bone at base of wound. Extremities: R heel wound 1.5 cm x 1.0 cm with surrounding erythema. L heel large unstageable pressure injury ~7 cm in length. Black escar. L medial malleolus 2 x 1 cm wound. L achilles shows wound 3.4 cm x 1.5 cm. Neuro: Paraplegia of lower extremities. Good upper extremity strength bilaterally. Cranial nerves II through XII are intact. Psych: calm, cooperative, AAO x 3 LABORATORY DATA, IMAGING STUDIES, MICROBIOLOGY: Please see below. MRI sacrum w and wo contrast (08/18/20): 1. 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 There is fluid in T11-T12 disc space which may be fluid extension from the pseudomeningocele and cyst but cannot completely exclude infection. No additional findings to definitively indicate infection. Correlate clinically. 2. No evidence of sacral osteomyelitis in visualized portions of sacrum. Stable nonspecific presacral edema compared to prior CT of abdomen and pelvis. ECHO (08/16/20): 1. Normal left ventricle internal dimensions and wall thickness. Normal regional LV wall motion and wall thickening. Normal LV systolic function. LVEF 65%-70% by visual estimate. Normal LV diastolic function for age. 2. Suggestive of estimated right ventricle systolic pressure to be near the upper limits of normal to mildly elevated. Normal right ventricle size and systolic function. Right atrium appeared normal in size. 3. Very mild aortic valve sclerosis of a 3-cuspid aortic valve. No aortic regurgitation. 4. Very mild mitral annular calcification. Trace mitral regurgitation. 5. Overall otherwise normal appearing echocardiogram Doppler findings. 6. Moderately technically difficult echocardiogram. 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 There was concern for slurred speech. MRI of the brain did not reveal any evidence for CVA. Patient currently being treated for a large stage IV sacral ulcer as well as numerous pressure ulcers on his feet. PROBLEMS: # Fall at home: patient describes fall as mechanical. CT head, MRI brain show no evidence for CVA or bleeding. Patient is now AAO x 3. Has good strength in bilateral upper extremities. #Stage IV sacral ulcer: evaluated by Dr. Webber. Recommends surgical debridement. D/w Dr. Tanner, will see patient. Complicated by ongoing diarrhea. Rectal tube dislodged. KUB showing stool burden. Possible overflow diarrhea. Plastic surgery consulted, Dr. Joiner. Debridement defered. Obtain MRI sacrum, r/o osteomyelitis. Treat diarrhea 2/2 c diff. General surgery consult greatly appreciated, likely necessity for diverting colostomy to help with proper wound healing. - MRI reviewed. Large cyst from T10-T12, likely a large pseudomeningocele, 15 cm x 4.7. cm. Fluid in the T11-T12 disc space, which may represent fluid extension from pseudomeningocele and cyst but cannot complete r/o infection - spoke to spine surgery at [facility] on 08/19/20, a Dr. Gary, who agreed for transfer for workup of suspicious MRI findings for infection - I discussed the need for transfer with the patient, but Mr. Markham does not want to be transfer, and states that he would not go through with any surgical procedure. - No evidence of sacral osteomyelitis in visualized portion of sacrum. - unfortunately, no spinal #C diff: PCR positive on 3/18/21 for C diff. Vancomycin PO 125 mg q6h. Monitor for response, add dificid if no improvement. ID consulted. Diarrhea is improving. #BLE edema: check 2D echo. Lasix 40 mg daily. prn doses of lasix based on daily exam. #L heel, achilles and medial malleolus wounds: podiatry consult, Dr. Olivarez for debridement. Hydophera blue dressing. #R heel pressure injury: heel float boot, foam dressing. # Weakness: This is likely chronic secondary to debility superimposed with spinal stenosis as well as lack of social support. Plan as above. # Enterococcus UTI: receiving vancomycin # Seizure disorder: Continue home medications # DVT prophylaxis: Lovenox #Dispo: pending clinical improvement. PT/OT eval. VS, I&O, 24H, Fishbone Vital Signs/I&O Vital Signs Date Time Temp Pulse Resp B/P (MAP) Pulse Ox O2 Delivery O2 Flow Rate FiO2 08/19/20 05:54 97.7 81 20 125/68 (87) 97 Room Air I&O- Last 24 Hours up to 6 AM 08/19/20 06:00 Intake Total 750 ml Output Total 2550 ml Balance -1800 ml Laboratory Data 24H LABS Laboratory Tests 2 08/18/20 14:57: Vancomycin Level Trough 15.7 08/19/20 06:38: Immature Granulocyte % (Auto) 1.1, Neutrophils (%) (Auto) 69.5H, Lymphocytes (%) (Auto) 17.7L, Monocytes (%) (Auto) 6.6, Eosinophils (%) (Auto) 4.6H, Basophils (%) (Auto) 0.5, Neutrophils # (Auto) 5.9, Lymphocytes # (Auto) 1.5, Monocytes # (Auto) 0.6, Eosinophils # (Auto) 0.4, Basophils # (Auto) 0.0, Nucleated Red Blood Cells % (auto) 0.0, Erythrocyte Sedimentation Rate 106H, Anion Gap 5L, G lomerular Filtration Rate > 60.0, Calcium Level 8.0L, Magnesium Level 2.3, Total Bilirubin 0.4, Aspartate Amino Transf (AST/SGOT) 12, Alanine Aminotransferase (ALT/SGPT) 15, Alkaline Phosphatase 89, C-Reactive Protein, Quantitative 8.23H, Total Protein 6.2L, Albumin 2.0L, Albumin/Globulin Ratio 0.5 CBC/BMP Laboratory Tests 08/19/20 06:38 Microbiology Microbiology 08/14/20 Urine Culture - Final, Complete Enterococcus Faecalis 08/13/20 Blood Culture - Final, Complete NO GROWTH AFTER 5 DAYS 08/13/20 Blood Culture - Final, Complete NO GROWTH AFTER 5 DAYS AUDREY RIVERA MD Aug 19, 2020 13:36
[2020-08-19 14:00] VITALS: BP 125/67
[2020-08-19] MEDS: VANCOMYCIN HCL 750 MG, VIAL MATE ADAPTER 1 EACH in NS 250 ML IV SCH ×2 (16:33→17:53)
--- NOTE | 2020-08-19 17:57 | CR ---
INFECTIOUS DISEASE CONSULTATION DATE: 08/17/2020 REASON FOR CONSULTATION: Asked to consult by Dr. Fan Rodriguez for evaluation of Clostridium (C) difficile colitis, sacral decubitus ulcer and Enterococcus faecalis bacteruria in a patient with a chronic Rowley catheter associated with fever. HISTORY OF PRESENT ILLNESS: Patient is a 74-year-old gentleman who was admitted with severe diarrhea, fever of 101, decubitus ulcer and bilateral heel decubitus ulcers. Patient has a history of lumbar tumor that was resected many years ago and ended up having bilateral lower extremity weakness that has progressed. He recently had fallen, broke his leg and ended up at [facility] and in multiple rehabilitations. He had just gotten home at the end of July and he lives alone. The patient's decubitus ulcer progressed. His diarrhea worsened. He does not have any feeling from the waist down, so he is not aware of how bad his decubitus ulcer is in his sacral area and he also has bilateral heel decubitus ulcers. He states he was trying to transfer from his wheelchair to the toilet and slipped and fell. His friends called emergency medical services (EMS) and he was brought into the hospital. PAST MEDICAL HISTORY: Significant for: 1. Seizure disorder. 2. Chronic back pain status post surgery. 3. Neuropathic Charcot foot. 4. History of methicillin-resistant Staphylococcus aureus (MRSA) infection of the right foot. 5. Chronic osteomyelitis of the distal fibula. 6. Neuropathy with bilateral lower extremity weakness and numbness from the waist down. 7. Spinal cord tumor. 8. Inferior vena cava (IVC) filter placement. PAST SURGICAL HISTORY: 1. Resection of the lumbar tumor in the s. 2. Multiple back surgeries between 1979 and 1995. 3. Left inguinal hernia repair. 4. Thoracic laminectomy. 5. Lumbar fusion. 6. Cyst drained from the lower back in 2015. SOCIAL HISTORY: Denies alcohol use. He quit drinking in his 50s. Denies tobacco use or other drug use. He lives alone. He is wheelchair dependent. He is able to move from his bed to his wheelchair, where he spends most of his day. REVIEW OF SYSTEMS: He has no nausea, vomiting or abdominal pain, but does have diarrhea. No chest pain or shortness of breath. He had fever on admission that has now resolved. ALLERGIES: LINEZOLID. MEDICATIONS: - vancomycin 125 mg by mouth every 6 hours - vancomycin 1.5 grams intravenous (IV) every 24 hours - MiraLax as needed - Keppra 1000 mg by mouth at bedtime - Colace 100 mg by mouth twice a day; the patient received 7 doses since admission; last dose was on August 17, 2020 - cefepime 2 grams IV every 12 hours - furosemide 40 mg by mouth daily - Keppra 750 mg by mouth daily - potassium 20 mEq by mouth daily - Lyrica 150 mg by mouth twice a day - Tylenol as needed LABORATORY DATA: On 08/17/2020: White count 10.2, hemoglobin 10, hematocrit 30.2, platelets 401, 77% neutrophils, 11% lymphocytes, 7% monocytes. Erythrocyte sedimentation rate (ESR) 108. Sodium 142, potassium 4, chloride 109, bicarbonate 29, BUN 12, creatinine 0.5, glucose 84, calcium 7.7, magnesium 2.1. AST 15, ALT 19, alkaline phosphatase 86.Total protein 5.9, albumin 1.9. C-reactive protein (CRP) is down from 14.8 to 8.23 Blood cultures two sets were no growth after five days on August 13, 2020. August 14, 2020 urine culture had Enterococcus faecalis sensitive to amoxicillin and vancomycin. IMAGING DATA: Hip x-ray done on 08/17/2020 shows no acute fracture, intermedullary sourav in the proximal femur on the right, diffuse osteoporosis and Rowley catheter in place. Abdominal x-ray done on 08/14/2020 shows large amounts of stool in the left side of the colon and rectum with no radiographic evidence of obstruction. Patient with an inferior vena cava (IVC) filter. Vascular ultrasound 08/14/2020: Negative bilateral lower extremity Duplex studies. No evidence of deep venous thrombosis (DVT). Brain MRI: No acute findings. PHYSICAL EXAMINATION: He is an elderly gentleman in no acute distress, laying in bed. Does not have any major complaint. Is somewhat vague about his history, although he is able to tell me he was in rehabilitation for a long time and in [facility]. He states he has had diarrhea for at least a month. Temperature 98.7, pulse 84, respirations 18, blood pressure 125/67, oxygen saturation 97% on room air. HEART: Normal S1, S2. No murmurs. Distant. LUNGS: Clear. No wheezes, rales or rhonchi. ABDOMEN: Soft, nontender. No hepatosplenomegaly. EXTREMITIES: With 1+ pitting edema bilaterally. Bilateral heel decubitus ulcers. Left heel unstageable measuring 6.8 x 3.8 cm full thickness with eschar. Periwound shows no erythema, maceration or ischemic changes. Left medial malleolus has another wound measuring 2.1 x 1.2 cm and left Achilles tendon has a wound measuring 3.4 x 1.6 cm. Right heel has a smaller ulcer measuring 1.5 x 1 cm. These have been debrided by Dr. Olivarez. He has a decubitus ulcer on coccygeal area that measures about 3.2 cm with some tunneling around 11 o'clock. There is another ulceration inferior to that decubitus ulcer which is skin breakdown. There is no exposed bone in the sacral area. There is a meningocele with a bulge at T11-T12 where a previous surgery has been done in the lumbar spine. IMPRESSION: This is a 74-year-old gentleman who was admitted status post fall with fever and diarrhea. The diarrhea is related to Clostridium (C) difficile colitis. Patient also had Efecalis bacteruria, although I am not sure if he had urinary tract infection or if this is asymptomatic bacteruria currently on IV vancomycin treATMENT. The decubitus ulcer has no exposed bone even though there is some drainage and purulent discharge, there is no evidence of periwound infection or cellulitis or abscess. This wound needs to be debrided. I agree with , UNLIKELY OSTEOMYELITIS THERE IS NO EXPOSED BONE PLAN: Discontinue IV cefepime to decrease worsening of Clostridium (C) difficile colitis. Since the patient CURRENTLY ON IV antibiotics, I would suggest switching him to oral Dificid, which has a much lower risk of recurrent Clostridium (C) difficile and he is at high risk. Recommend debridement and possibly a wound VAC, which would help with decreased contamination from the diarrhea. If diarrhea persists, consider using a rectal tube or diverting colostomy Discontinue IV cefepime doubt decubitus needs broad spectrum antibiotics but agreessive debridement and dressing changes Consider Pelvic MRI if no improvement of sacral decubitus MTDD
[2020-08-19] MEDS: FIDAXOMICIN 200 MG TAB (DIFICID) PO SCH (21:13)
[2020-08-19 22:00] VITALS: BP 123/65
[2020-08-20] MEDS: SLF 3 ML SYR IV SCH ×3 (04:35→21:34)
[2020-08-20 06:00] VITALS: BP 125/66
[2020-08-20 06:55] LABS: BASO % 0.5 % (0.0-1.0); EOS # 0.4 10^3/uL (0.0-0.5); EOS % 4.6 % (0.0-3.0); HEMATOCRIT 33.6 % (42.0-52.0); HEMOGLOBIN 10.7 g/dl (13.5-17.5); LYMPH # 1.4 10^3/uL (1.5-5.0); LYMPH % 16.1 % (24.0-44.0); MEAN CORPUSCULAR HEMOGLOBIN 30.1 pg (27.0-33.0); MEAN CORPUSCULAR HGB CONC 31.8 g/dl (32.0-36.5); MEAN CORPUSCULAR VOLUME 94.4 fl (80.0-96.0); MONO # 0.6 10^3/uL (0.0-0.8); MONO % 6.6 % (2.0-8.0); NEUTROPHILS # 6.2 10^3/uL (1.5-8.5); NEUTROPHILS % 70.8 % (36.0-66.0); PLATELET COUNT, AUTOMATED 492 10^3/uL (150-450); RED BLOOD COUNT 3.56 10^6/uL (4.30-6.10); WHITE BLOOD COUNT 8.8 10^3/uL (4.0-10.0)
[2020-08-20 07:29] LABS: ALT/SGPT 15 U/L (12-78); BILIRUBIN,TOTAL 0.2 MG/DL (0.2-1.0); BLOOD UREA NITROGEN 12 MG/DL (7-18); CALCIUM LEVEL 8.1 MG/DL (8.8-10.2); CARBON DIOXIDE LEVEL 27 MEQ/L (21-32); CHLORIDE LEVEL 108 MEQ/L (98-107); GLOMERULAR FILTRATION RATE > 60.0 (>42); GLUCOSE, FASTING 81 MG/DL (70-100); MAGNESIUM LEVEL 2.4 MG/DL (1.8-2.4); POTASSIUM SERUM 3.9 MEQ/L (3.5-5.1); SODIUM LEVEL 140 MEQ/L (136-145); TOTAL PROTEIN 6.9 GM/DL (6.4-8.2)
[2020-08-20] MEDS: ENOXAPARIN 40MG/0.4ML SYRINGE (J1650 PER 10MG) SC SCH (08:15)
[2020-08-20] MEDS: levETIRAcetam 250MG TABLET (KEPPRA) PO SCH ×2 (08:16→21:35)
[2020-08-20] MEDS: POTASSIUM CHLORIDE 10 MEQ SR TABLET PO SCH (08:16)
[2020-08-20] MEDS: FIDAXOMICIN 200 MG TAB (DIFICID) PO SCH ×2 (08:16→21:35)
[2020-08-20] MEDS: FUROSEMIDE 40 MG TAB PO SCH (08:17)
[2020-08-20] MEDS: PREGABALIN 75 MG CAP(LYRICA) PO SCH ×2 (08:17→21:35)
[2020-08-20] MEDS: ACETAMINOPHEN TAB 650MG DOSE (2X325MG) PO PRN ×2 (09:43→21:36)
[2020-08-20 14:00] VITALS: BP 122/63
--- NOTE | 2020-08-20 14:01 | IPNPDOC ---
Date Seen The patient was seen on 08/20/20. Progress Note SUBJECTIVE: Patient was seen and examined at bedside. Comfortable, no acute events overnight. States the diarrhea has improved. Denies fevers, chills, chest pain, nausea, vomiting. Concerning findings seen on MRI from , unable to rule out an infection at the T11-T12 disc level. I discussed these the option of transfer with the patient to [facility] after speaking to neurosurgery [facility]. Patient has declined transfer outside of [facility], and does not wish any intervention on his back. He is open to the idea of a diverting colostomy. OBJECTIVE PHYSICAL EXAMINATION: VITAL SIGNS: please see below General: NAD, comfortable HEENT: PERRLA, EOMI, sclerae clear Neck: supple, normal ROM, no JVD Respiratory: lungs CTAB, no wheeze, no rales, no crackles CVS: RRR, normal S1, S2, no murmurs Abdo: soft, no masses, no hepatosplenomegaly, BS+, no rebound tenderness Back: sacrum has a stave IV pressure ulcer. 11 x 8.5 x 1.4 cm. Palpable bone at base of wound. Extremities: R heel wound 1.5 cm x 1.0 cm with surrounding erythema. L heel large unstageable pressure injury ~7 cm in length. Black escar. L medial malleolus 2 x 1 cm wound. L achilles shows wound 3.4 cm x 1.5 cm. Neuro: Paraplegia of lower extremities. Good upper extremity strength bilaterally. Cranial nerves II through XII are intact. Psych: calm, cooperative, AAO x 3 LABORATORY DATA, IMAGING STUDIES, MICROBIOLOGY: Please see below. MRI sacrum w and wo contrast (08/18/20): 1. 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 There is fluid in T11-T12 disc space which may be fluid extension from the pseudomeningocele and cyst but cannot completely exclude infection. No additional findings to definitively indicate infection. Correlate clinically. 2. No evidence of sacral osteomyelitis in visualized portions of sacrum. Stable nonspecific presacral edema compared to prior CT of abdomen and pelvis. ECHO (08/16/20): 1. Normal left ventricle internal dimensions and wall thickness. Normal regional LV wall motion and wall thickening. Normal LV systolic function. LVEF 65%-70% by visual estimate. Normal LV diastolic function for age. 2. Suggestive of estimated right ventricle systolic pressure to be near the upper limits of normal to mildly elevated. Normal right ventricle size and systolic function. Right atrium appeared normal in size. 3. Very mild aortic valve sclerosis of a 3-cuspid aortic valve. No aortic regurgitation. 4. Very mild mitral annular calcification. Trace mitral regurgitation. 5. Overall otherwise normal appearing echocardiogram Doppler findings. 6. Moderately technically difficult echocardiogram. 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 There was concern for slurred speech. MRI of the brain did not reveal any evidence for CVA. Patient currently being treated for a large stage IV sacral ulcer as well as numerous pressure ulcers on his feet. PROBLEMS: # Fall at home: patient describes fall as mechanical. CT head, MRI brain show no evidence for CVA or bleeding. Patient is now AAO x 3. Has good strength in bilateral upper extremities. #Stage IV sacral ulcer: evaluated by Dr. Webber. Recommends surgical debridement. Dr. Smith consulted. Recommending diverting colostomy as sacral wound is complicated by ongoing diarrhea. Plastic surgery consulted, Dr. Joiner. Debridement defered. Obtain MRI sacrum, r/o osteomyelitis. Treat diarrhea 2/2 c diff. - MRI reviewed. Large cyst from T10-T12, likely a large pseudomeningocele, 15 cm x 4.7. cm. Fluid in the T11-T12 disc space, which may represent fluid extension from pseudomeningocele and cyst but cannot complete r/o infection - spoke to spine surgery at [facility] on 08/19/20, a Dr. Gary, who agreed for transfer for workup of suspicious MRI findings for infection - I discussed the need for transfer with the patient, but Mr. Markham does not want to be transfer, and states that he would not go through with any surgical procedure. - No evidence of sacral osteomyelitis in visualized portion of sacrum. #C diff: PCR positive on 08/16/20 for C diff. Vancomycin discontinued, switched to Dificid. ID consulted. Diarrhea is improving. #BLE edema: 2D echo on 07/19/20, normal LVEF. Lasix 40 mg daily. prn doses of lasix based on daily exam. #L heel, achilles and medial malleolus wounds: podiatry consult, Dr. Olivarez s/p debridement. Hydophera blue dressing. #R heel pressure injury: heel float boot, foam dressing. # Weakness: This is likely chronic secondary to debility superimposed with spinal stenosis as well as lack of social support. Plan as above. # Enterococcus UTI: receiving vancomycin # Seizure disorder: Continue home medications # DVT prophylaxis: Lovenox #Dispo: pending clinical improvement. PT/OT eval. Recommeding rehab after DC. VS, I&O, 24H, Fishbone Vital Signs/I&O Vital Signs Date Time Temp Pulse Resp B/P (MAP) Pulse Ox O2 Delivery O2 Flow Rate FiO2 08/20/20 06:00 99.6 81 18 125/66 (85) 96 Room Air I&O- Last 24 Hours up to 6 AM 08/20/20 05:59 Intake Total 760 ml Output Total 1325 ml Balance -565 ml Laboratory Data 24H LABS Laboratory Tests 2 08/20/20 06:12: Immature Granulocyte % (Auto) 1.4, Neutrophils (%) (Auto) 70.8H, Lymphocytes (%) (Auto) 16.1L, Monocytes (%) (Auto) 6.6, Eosinophils (%) (Auto) 4.6H, Basophils (%) (Auto) 0.5, Neutrophils # (Auto) 6.2, Lymphocytes # (Auto) 1.4L, Monocytes # (Auto) 0.6, Eosinophils # (Auto) 0.4, Basophils # (Auto) 0.0, Nucleated Red Blood Cells % (auto) 0.0, Anion Gap 5L, Glomerular Filtration Rate > 60.0, Calcium Level 8.1L, Magnesium Level 2.4, Total Bilirubin 0.2, Aspartate Amino Transf (AST/SGOT) 15, Alanine Aminotransferase (ALT/SGPT) 15, Alkaline Phosphatase 87, Total Protein 6.9, Albumin 2.0L, Albumin/Globulin Ratio 0.4 CBC/BMP Laboratory Tests 08/20/20 06:12 Microbiology Microbiology 08/14/20 Urine Culture - Final, Complete Enterococcus Faecalis 08/13/20 Blood Culture - Final, Complete NO GROWTH AFTER 5 DAYS 08/13/20 Blood Culture - Final, Complete NO GROWTH AFTER 5 DAYS AUDREY RIVERA MD Aug 20, 2020 14:01
[2020-08-20] MEDS: VANCOMYCIN HCL 750 MG, VIAL MATE ADAPTER 1 EACH in NS 250 ML IV SCH ×2 (15:13→16:40)
--- NOTE | 2020-08-20 17:44 | IPNPDOC ---
Subjective General Date Seen: Aug 20, 2020 Subject Chief Complaint/History The patient is a 74-year-old male admitted with a reason for visit of Uti,Weakness. Patient is feeling better. Still with diarrhea. No fever, chills. Current Medications Current Medications Current Medications Medications (Trade) Dose Ordered Sig/Mark Route PRN Reason Start Time Stop Time Status Last Admin Dose Admin Acetaminophen (Tylenol Tab) 650 mg Q4H PRN PO PAIN OR FEVER 08/14/20 01:25 08/20/20 09:43 Al Hydrox/Mg Hydrox/Simethicone (Mylanta) 30 ml DAILY PRN PO DYSPEPSIA 08/14/20 01:25 Cefepime HCl 2 gm/ Dextrose 50 ml @ 100 mls/hr Q12H IV 08/14/20 03:00 08/19/20 15:52 DC 08/19/20 15:26 Docusate Sodium (Colace) 100 mg BID PO 08/14/20 09:00 08/19/20 15:44 DC 08/17/20 09:43 Enoxaparin Sodium (Lovenox) 40 mg DAILY SC 08/14/20 09:00 08/20/20 08:15 Fidaxomicin (Dificid) 200 mg BID PO 08/19/20 21:00 08/20/20 08:16 Furosemide (Lasix) 40 mg DAILY PO 08/14/20 09:00 08/20/20 08:17 Gabapentin (Neurontin) 600 mg BID PO 08/14/20 09:00 Hold Home Med (Med Rec Complete!) ASDIRECTED XX 08/14/20 07:25 08/14/20 07:23 DC Levetiracetam (Keppra) 750 mg DAILY PO 08/14/20 09:00 08/20/20 08:16 Levetiracetam (Keppra) 1,000 mg QHS PO 08/14/20 21:00 08/19/20 21:13 Magnesium Hydroxide (Milk Of Magnesia) 30 ml DAILY PRN PO CONSTIPATION 08/14/20 01:25 08/15/20 01:48 Polyethylene Glycol (Miralax) 1 pkt BID PRN PO CONSTIPATION 08/14/20 22:15 08/15/20 01:48 Potassium Chloride (Micro-K Extencaps) 20 meq DAILY PO 08/14/20 09:00 08/20/20 08:16 Pregabalin (Lyrica) 150 mg BID PO 08/14/20 09:00 08/20/20 08:17 Sodium Chloride (Saline Lock Flush) 2 ml ASDIRECTED PRN IV SEE LABEL COMMENTS 08/14/20 10:50 Sodium Chloride (Saline Lock Flush) 2 ml SLF IV 08/14/20 14:00 08/20/20 15:13 Vancomycin HCl (First-Vancomycin 50(Firvanq)- 250mg/5ml) 125 mg Q6H PO 08/16/20 18:00 08/19/20 15:52 DC 08/19/20 12:01 Vancomycin HCl 500 mg/Dextrose 110 ml @ 110 mls/hr Q12H IV 08/14/20 14:00 08/15/20 14:13 DC 08/15/20 02:05 Vancomycin HCl 750 mg/IV Miscellaneous Supplies 1 each/ Sodium Chloride 275 ml @ 275 mls/hr Q12H IV 08/14/20 14:00 08/15/20 14:13 DC 08/15/20 03:19 Vancomycin HCl 750 mg/IV Miscellaneous Supplies 1 each/ Sodium Chloride 275 ml @ 275 mls/hr Q24H IV 08/16/20 16:00 08/20/20 15:13 Vancomycin HCl 750 mg/IV Miscellaneous Supplies 1 each/ Sodium Chloride 275 ml @ 275 mls/hr Q24H IV 08/16/20 17:00 08/20/20 16:40 Vancomycin HCl 1000 mg/IV Miscellaneous Supplies 1 each/ Sodium Chloride 270 ml @ 270 mls/hr Q12H IV 08/14/20 01:55 Cancel Vancomycin HCl 1000 mg/IV Miscellaneous Supplies 1 each/ Sodium Chloride 270 ml @ 270 mls/hr Q12H IV 08/15/20 14:00 08/16/20 15:28 DC 08/16/20 02:17 Allergies Coded Allergies: linezolid (Verified Allergy, Unknown, 04/23/19) Objective Physical Examination Examination GENERAL APPEARANCE:Patient seen, laying in bed, awake, alert, and oriented. Comfortable, in no acute distress. SKIN: Warm and moist. Sacral wound stage 4, residual yellow necrosis, 50%, granulation 50%, no odor. Liquid stool contamination. No visible bone. No black eschar. LUNGS: Clear to auscultation bilaterally. No wheezing appreciated. HEART: No chest wall abnormalities. Regular rate and rhythm with no murmurs appreciated. EXTREMITIES: No edema identified. No calf tenderness. Vital Signs Vital Signs Date Time Temp Pulse Resp B/P (MAP) Pulse Ox O2 Delivery O2 Flow Rate FiO2 08/20/20 14:00 98.6 84 18 122/63 (82) 97 Room Air I&Os I&O- Last 24 Hours up to 6 AM 08/20/20 06:00 Intake Total 860 ml Output Total 1775 ml Balance -915 ml Laboratory Data Labs 24H Laboratory Tests 2 08/20/20 06:12: Immature Granulocyte % (Auto) 1.4, Neutrophils (%) (Auto) 70.8H, Lymphocytes (%) (Auto) 16.1L, Monocytes (%) (Auto) 6.6, Eosinophils (%) (Auto) 4.6H, Basophils (%) (Auto) 0.5, Neutrophils # (Auto) 6.2, Lymphocytes # (Auto) 1.4L, Monocytes # (Auto) 0.6, Eosinophils # (Auto) 0.4, Basophils # (Auto) 0.0, Nucleated Red Blood Cells % (auto) 0.0, Anion Gap 5L, Glomerular Filtration Rate > 60.0, Calcium Level 8.1L, Magnesium Level 2.4, Total Bilirubin 0.2, Aspartate Amino Transf (AST/SGOT) 15, Alanine Aminotransferase (ALT/SGPT) 15, Alkaline Phosphatase 87, Total Protein 6.9, Albumin 2.0L, Albumin/Globulin Ratio 0.4 CBC/BMP Laboratory Tests 08/20/20 06:12 Microbiology Microbiology 08/14/20 Urine Culture - Final, Complete Enterococcus Faecalis 08/13/20 Blood Culture - Final, Complete NO GROWTH AFTER 5 DAYS 08/13/20 Blood Culture - Final, Complete NO GROWTH AFTER 5 DAYS Impression Sacral wound stage 4. Improving. Continue with daily and prn Santyl. MRI reviewed, no osteo. Continue with antibiotics Patient agreeable with diverting colostomy plan. General surgery team aware. Recommend Mook daily. Plan for diverting colostomy and surgical debridement in OR. Will follow Plan / VTE VTE Prophylaxis Ordered?: Yes CHRISTOPHER HERNANDEZ DO Aug 20, 2020 17:44
--- NOTE | 2020-08-20 19:30 | IPN ---
INFECTIOUS DISEASE PROGRESS NOTE DATE: 08/20/2020 SUBJECTIVE: Fan seems to be doing better this afternoon. He is in better spirits. He states he agrees on having a colostomy done. He thinks it would facilitate things. Usually, he has to disimpact himself daily to have a bowel movement. He has had chronic diarrhea for a month. He denies any sacral pain or heel pain. He has sometimes pain in his knee on the right side where it was broken in January. He has had no fever or chills. Diarrhea has slowed down, but it is still watery. PHYSICAL EXAMINATION: Temperature 98.6, pulse 84, respirations 18, blood pressure 122/63, oxygen saturation 97% on room air. HEART: Normal S1, S2. No murmurs, rubs or gallops appreciated. LUNGS: Clear. No wheezes, rales or rhonchi. ABDOMEN: Obese, soft, nontender. Left lower quadrant scar healed from abdominal incisional hernia, which is still present. EXTREMITIES: Bilateral heel decubitus ulcers. Sacral decubitus ulcer still with yellow fibrinous tissue that needs debridement. The ulcer in the decubitus area measures about 3 x 2 cm with a 1 cm depth. Also, a larger ulcer that is more superficial, measuring about 10 x 3 cm right inferior to the deep decubitus ulcer. There is no surrounding erythema or maceration of the skin. RECTAL EXAM: He has watery stools. Incontinent. LABORATORY DATA: White count 8.8, hemoglobin 10.7, hematocrit 33.6, platelets 492. Erythrocyte sedimentation rate (ESR) 106. Sodium 140, potassium 3.9, chloride 108, bicarbonate 27, BUN 12, creatinine 0.5, glucose 81, calcium 8.1. AST 15, ALT 15, alkaline phosphatase 87. C-reactive protein (CRP) 8.23, which is down from 14.8. Blood cultures two sets are no growth on 08/13/2020. Urine culture has Enterococcus faecalis. Patient is currently day #7 of 10 of antibiotic with vancomycin and day #2 of oral Dificid. IMPRESSION: 1. Sacral decubitus ulcer without any evidence of osteomyelitis on lumbar MRI. Wound needs debridement, but right now surgery is waiting for his diarrhea to improve. 2. Enterococcus faecalis urinary tract infection. On vancomycin. Currently day #7 out of 10. 3. Clostridium (C) difficile colitis. On oral Dificid 200 mg by mouth twice a day after he had four days of oral vancomycin without much improvement. PLAN: Continue Dificid for at least 10 days until improvement of his symptoms. He may benefit from Zinplava infusion as an outpatient to decrease his recurrence. Discontinue vancomycin on 08/23/2020. Case has been discussed with Dr. Joiner and Dr. Smith, who are discussing having a diverting colostomy and debridement once his diarrhea is better.
[2020-08-21] MEDS: SLF 3 ML SYR IV SCH ×3 (03:29→21:01)
[2020-08-21 06:00] VITALS: BP 120/68
[2020-08-21 06:01] LABS: BASO % 0.3 % (0.0-1.0); EOS # 0.4 10^3/uL (0.0-0.5); EOS % 4.2 % (0.0-3.0); HEMATOCRIT 33.6 % (42.0-52.0); HEMOGLOBIN 10.7 g/dl (13.5-17.5); LYMPH # 1.7 10^3/uL (1.5-5.0); LYMPH % 19.1 % (24.0-44.0); MEAN CORPUSCULAR HEMOGLOBIN 30.1 pg (27.0-33.0); MEAN CORPUSCULAR HGB CONC 31.8 g/dl (32.0-36.5); MEAN CORPUSCULAR VOLUME 94.6 fl (80.0-96.0); MONO # 0.6 10^3/uL (0.0-0.8); MONO % 6.9 % (2.0-8.0); NEUTROPHILS % 68.1 % (36.0-66.0); PLATELET COUNT, AUTOMATED 482 10^3/uL (150-450); RED BLOOD COUNT 3.55 10^6/uL (4.30-6.10); WHITE BLOOD COUNT 8.7 10^3/uL (4.0-10.0)
[2020-08-21 06:31] LABS: ALBUMIN 2.2 GM/DL (3.2-5.2); ALT/SGPT 16 U/L (12-78); BILIRUBIN,TOTAL 0.2 MG/DL (0.2-1.0); BLOOD UREA NITROGEN 15 MG/DL (7-18); CARBON DIOXIDE LEVEL 29 MEQ/L (21-32); CHLORIDE LEVEL 110 MEQ/L (98-107); CREATININE FOR GFR 0.52 MG/DL (0.70-1.30); GLOMERULAR FILTRATION RATE > 60.0 (>42); GLUCOSE, FASTING 86 MG/DL (70-100); MAGNESIUM LEVEL 2.4 MG/DL (1.8-2.4); POTASSIUM SERUM 3.8 MEQ/L (3.5-5.1); SODIUM LEVEL 142 MEQ/L (136-145); TOTAL PROTEIN 7.1 GM/DL (6.4-8.2)
[2020-08-21] MEDS: FIDAXOMICIN 200 MG TAB (DIFICID) PO SCH ×2 (08:41→21:00)
[2020-08-21] MEDS: PREGABALIN 75 MG CAP(LYRICA) PO SCH ×2 (08:41→21:00)
[2020-08-21] MEDS: FUROSEMIDE 40 MG TAB PO SCH (08:42)
[2020-08-21] MEDS: POTASSIUM CHLORIDE 10 MEQ SR TABLET PO SCH (08:42)
[2020-08-21] MEDS: levETIRAcetam 250MG TABLET (KEPPRA) PO SCH ×2 (08:42→20:59)
[2020-08-21] MEDS: ENOXAPARIN 40MG/0.4ML SYRINGE (J1650 PER 10MG) SC SCH (08:43)
[2020-08-21] MEDS: ACETAMINOPHEN TAB 650MG DOSE (2X325MG) PO PRN ×2 (08:54→21:01)
--- NOTE | 2020-08-21 10:52 | IPNPDOC ---
Text Note Date of Service The patient was seen on 08/21/20. NOTE SUBJECTIVE: Patient was seen and examined at bedside. Patient says he is feeling comfortable there is no acute overnight events. He denies any fevers chills nausea vomiting or pain. OBJECTIVE PHYSICAL EXAMINATION: VITAL SIGNS: please see below General: NAD, comfortable HEENT: PERRLA, EOMI, sclerae clear Neck: supple, normal ROM, no JVD Respiratory: lungs CTAB, no wheeze, no rales, no crackles CVS: RRR, normal S1, S2, no murmurs Abdo: soft, no masses, no hepatosplenomegaly, BS+, no rebound tenderness Back: sacrum has a stave IV pressure ulcer. 11 x 8.5 x 1.4 cm. Palpable bone at base of wound. Extremities: R heel wound 1.5 cm x 1.0 cm with surrounding erythema. L heel large unstageable pressure injury ~7 cm in length. Black escar. L medial malleolus 2 x 1 cm wound. L achilles shows wound 3.4 cm x 1.5 cm. LE edema. Neuro: Paraplegia of lower extremities. Good upper extremity strength bilaterally. Psych: calm, cooperative, AAO x 3 LABORATORY DATA, IMAGING STUDIES, MICROBIOLOGY: Please see below. MRI sacrum w and wo contrast (08/18/20): 1. 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 There is fluid in T11-T12 disc space which may be fluid extension from the pseudomeningocele and cyst but cannot completely exclude infection. No additional findings to definitively indicate infection. Correlate clinically. 2. No evidence of sacral osteomyelitis in visualized portions of sacrum. Stable nonspecific presacral edema compared to prior CT of abdomen and pelvis. ECHO (08/16/20): 1. Normal left ventricle internal dimensions and wall thickness. Normal regional LV wall motion and wall thickening. Normal LV systolic function. LVEF 65%-70% by visual estimate. Normal LV diastolic function for age. 2. Suggestive of estimated right ventricle systolic pressure to be near the upper limits of normal to mildly elevated. Normal right ventricle size and systolic function. Right atrium appeared normal in size. 3. Very mild aortic valve sclerosis of a 3-cuspid aortic valve. No aortic regurgitation. 4. Very mild mitral annular calcification. Trace mitral regurgitation. 5. Overall otherwise normal appearing echocardiogram Doppler findings. 6. Moderately technically difficult echocardiogram. DVT prophylaxis ordered?: Lovenox, SCD/teds ASSESSMENT AND PLAN: 74-year-old male, wheelchair bound (hx of spinal lumbar tu mor), MRSA, chronic back pain, Noted after a fall which patient reports was upon transferring from the chair to toilet and slipped out of the chair. There was concern for slurred speech. MRI of the brain did not reveal any evidence for CVA. Patient currently being treated for a large stage IV sacral ulcer as well as numerous pressure ulcers on his feet. #Stage IV sacral ulcer: evaluated by Dr. Webber. Recommends surgical debridement. Dr. Smith consulted. Recommending diverting colostomy as sacral wound is complicated by ongoing diarrhea. Plastic surgery consulted, Dr. Joiner. Debridement defered until after diverting colostomy and resolution of diarrhea. Patient will be here until seen again once Dr Smith is back 08/23/20 - MRI reviewed. Large cyst from T10-T12, likely a large pseudomeningocele, 15 cm x 4.7. cm. Fluid in the T11-T12 disc space, which may represent fluid extension from pseudomeningocele and cyst but cannot r/o infection, Dr Andre SILVER consulted. - spine surgery at [facility] on 08/19/20, a Dr. Gayr, who agreed for transfer for workup of suspicious MRI findings for infection. Dr Rodriguez discussed the need for transfer with the patient, but Mr. Markham does not want to be transfer, and states that he would not go through with any surgical procedure. N o evidence of sacral osteomyelitis in visualized portion of sacrum. # Fall at home: patient describes fall as mechanical. CT head, MRI brain show no evidence for CVA or bleeding. Patient is now AAO x 3. Has good strength in bilateral upper extremities. #C diff: PCR positive on 08/16/20 for C diff. Vancomycin discontinued, switched to Dificid continue for at least 10 days. ID consulted. Diarrhea is improving. #BLE edema: 2D echo on 07/19/20, normal LVEF. Lasix 40 mg daily. prn doses of lasix based on daily exam. #L heel, achilles and medial malleolus wounds: podiatry consult, Dr. Olivarez s/p debridement. Hydophera blue dressing. #R heel pressure injury: heel float boot, foam dressing. # Weakness: This is likely chronic secondary to debility superimposed with spinal stenosis as well as lack of social support. Plan as above. # Enterococcus UTI: receiving vancomycin # Seizure disorder: Continue home medications # DVT prophylaxis: Magi Hightower Hospitalist VS,[place], I+O VS, Fishbone, I+O Laboratory Tests 08/21/20 05:30 Vital Signs Date Time Temp Pulse Resp B/P (MAP) Pulse Ox O2 Delivery O2 Flow Rate FiO2 08/21/20 06:00 95.2 81 20 120/68 (85) 95 Room Air I&O- Last 24 Hours up to 6 AM 08/21/20 06:00 Intake Total 800 ml Output Total 1600 ml Balance -800 ml DANIEL HIGHTOWER MD Aug 21, 2020 10:52
[2020-08-21 14:00] VITALS: BP 118/82
[2020-08-21] MEDS: VANCOMYCIN HCL 750 MG, VIAL MATE ADAPTER 1 EACH in NS 250 ML IV SCH ×2 (16:15→17:40)
[2020-08-22] MEDS: SLF 3 ML SYR IV SCH ×3 (04:17→21:04)
[2020-08-22 06:00] VITALS: BP 116/76
[2020-08-22 08:08] LABS: HEMATOCRIT 34.9 % (42.0-52.0); HEMOGLOBIN 11.2 g/dl (13.5-17.5); MEAN CORPUSCULAR HEMOGLOBIN 30.1 pg (27.0-33.0); MEAN CORPUSCULAR HGB CONC 32.1 g/dl (32.0-36.5); MEAN CORPUSCULAR VOLUME 93.8 fl (80.0-96.0); PLATELET COUNT, AUTOMATED 530 10^3/uL (150-450); RED BLOOD COUNT 3.72 10^6/uL (4.30-6.10); WHITE BLOOD COUNT 8.1 10^3/uL (4.0-10.0)
[2020-08-22 08:46] LABS: BLOOD UREA NITROGEN 19 MG/DL (7-18); CALCIUM LEVEL 8.1 MG/DL (8.8-10.2); CARBON DIOXIDE LEVEL 29 MEQ/L (21-32); CHLORIDE LEVEL 110 MEQ/L (98-107); CREATININE FOR GFR 0.48 MG/DL (0.70-1.30); GLOMERULAR FILTRATION RATE > 60.0 (>42); GLUCOSE, FASTING 85 MG/DL (70-100); POTASSIUM SERUM 4.5 MEQ/L (3.5-5.1); SODIUM LEVEL 143 MEQ/L (136-145)
[2020-08-22] MEDS: FIDAXOMICIN 200 MG TAB (DIFICID) PO SCH ×2 (09:42→21:04)
[2020-08-22] MEDS: ACETAMINOPHEN TAB 650MG DOSE (2X325MG) PO PRN ×2 (09:42→22:25)
[2020-08-22] MEDS: ENOXAPARIN 40MG/0.4ML SYRINGE (J1650 PER 10MG) SC SCH (09:42)
[2020-08-22] MEDS: PREGABALIN 75 MG CAP(LYRICA) PO SCH ×2 (09:43→21:04)
[2020-08-22] MEDS: POTASSIUM CHLORIDE 10 MEQ SR TABLET PO SCH (09:43)
[2020-08-22] MEDS: levETIRAcetam 250MG TABLET (KEPPRA) PO SCH ×2 (09:43→21:04)
[2020-08-22] MEDS: FUROSEMIDE 40 MG TAB PO SCH (09:44)
--- NOTE | 2020-08-22 11:13 | IPN ---
PROGRESS NOTE DATE: 08/21/2020 SUBJECTIVE: Mr. Markham seems to be doing well. He is in a good mood. He had one bowel movement today that was less watery. He had a total of three bowel movements yesterday. It seems his C. difficile is doing better. He denies any nausea, vomiting, abdominal pain, or any pain anywhere else. He has had no fever or chills. No nausea or vomiting. OBJECTIVE: GENERAL APPEARANCE: Healthy looking gentleman in no acute distress. HEART: Normal S1, S2. No murmurs, rubs, or gallops appreciated. LUNGS: Clear. No wheezes, rales, or rhonchi. ABDOMEN: Soft and nontender with left lower quadrant incisional hernia. BACK: With large thoracic surgery with a bulge in the lower thoracic area from previous tumor resection. SKIN: Sacral area has a stage 4 ulcer measuring 11 x 8.5 x 1.4 cm depth, but the major ulcer measures about 3 x 2 cm, which is the depth of 1 cm and around the rest of the ulcer is pretty superficial. There is no surrounding cellulitis. There is some yellow fibrinous tissue that needs debridement, but no purulence. Right heel is 1.5 x 1 cm and left heel about 7 cm. IMAGING DATA: MRI of the lumbar spine does not show osteomyelitis. LABORATORY DATA: White count 8.7, hemoglobin 10.7, hematocrit 33.6, platelets 482,000, neutrophils 68%, lymphocytes 19%, monocytes 7%. Sodium 142, potassium 3.8, chloride 110, bicarb 29, BUN 15, creatinine 0.52, glucose 86, calcium 8, magnesium 2.4, AST 14, ALT 16, alkaline phosphatase 90. CRP 2.79 down from 8.23, Total protein 7.1, albumin 2.2. IMPRESSION: 1. Enterococcus faecalis urinary tract infection day #8 out of 10 of intravenous (IV) vancomycin. 2. Decubitus ulcer of the sacral area doing well with vancomycin, debridement, and frequent changes to avoid cross-contamination from stool. The patient will have surgical debridement some time later this week hopefully. 3. Clostridium difficile diarrhea on p.o. Dificid day #3 out of 10 doing better. He had a total of three bowel movements today. PLAN: 1. Continue IV vancomycin until 08/23, then that could be discontinued. 2. Continue fidaxomicin until August 29, for a total of 10 days. Would recommend using probiotics twice a day. Dr. Joiner and Dr. Smith are consulted for debridement and colostomy and the patient is in agreement.
--- NOTE | 2020-08-22 12:38 | IPNPDOC ---
Text Note Date of Service The patient was seen on 08/22/20. NOTE General Surgery Dr Jones. 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 History of chronic urinary retention and incontinence of stool from resection of spinal cord tumor and previous back surgeries. It was previously discussed with the patient as per Dr. Jones possibly pursuing colostomy. The patient had report that he had been disimpacting himself manually for years. Additionally, with more frequent bowel movements/diarrhea this has proved very challenging to heal the sacrococcygeal decubitus ulcer. Patient states this morning that he would like to pursue colostomy and would like to discuss further with Dr. Jones. VS,Larry, I+O VS, [place], I+O Laboratory Tests 08/22/20 07:53 Vital Signs Date Time Temp Pulse Resp B/P (MAP) Pulse Ox O2 Delivery O2 Flow Rate FiO2 08/22/20 06:00 98.4 86 18 116/76 (89) 96 Room Air l I&O- Last 24 Hours up to 6 AM 08/22/20 06:00 Intake Total 1590 ml Output Total 1950 ml Balance -360 ml Nicole Lindsay Aug 22, 2020 12:38 COLEEN JONES MD Aug 27, 2020 13:20
[2020-08-22 14:00] VITALS: BP 114/60
[2020-08-22] MEDS ORDERED: SANTYL OINT 30GM TOP PRN (14:10)
--- NOTE | 2020-08-22 14:35 | IPNPDOC ---
Text Note Date of Service The patient was seen on 08/22/20. NOTE SUBJECTIVE: Patient was seen and examined at bedside. Patient says he is feeling comfortable there is no acute overnight events. He denies any fevers chills nausea vomiting or pain. OBJECTIVE PHYSICAL EXAMINATION: VITAL SIGNS: please see below General: NAD, comfortable HEENT: PERRLA, EOMI, sclerae clear Neck: supple, normal ROM, no JVD Respiratory: lungs CTAB, no wheeze, no rales, no crackles CVS: RRR, normal S1, S2, no murmurs Abdo: soft, no masses, no hepatosplenomegaly, BS+, no rebound tenderness Back: sacrum has a stave IV pressure ulcer. 11 x 8.5 x 1.4 cm. Palpable bone at base of wound. Extremities: R heel wound 1.5 cm x 1.0 cm with surrounding erythema. L heel large unstageable pressure injury ~7 cm in length. Black escar. L medial malleolus 2 x 1 cm wound. L achilles shows wound 3.4 cm x 1.5 cm. LE edema. Neuro: Paraplegia of lower extremities. Good upper extremity strength bilaterally. Psych: calm, cooperative, AAO x 3 LABORATORY DATA, IMAGING STUDIES, MICROBIOLOGY: Please see below. MRI sacrum w and wo contrast (08/18/20): 1. 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 There is fluid in T11-T12 disc space which may be fluid extension from the pseudomeningocele and cyst but cannot completely exclude infection. No additional findings to definitively indicate infection. Correlate clinically. 2. No evidence of sacral osteomyelitis in visualized portions of sacrum. Stable nonspecific presacral edema compared to prior CT of abdomen and pelvis. ECHO (08/16/20): 1. Normal left ventricle internal dimensions and wall thickness. Normal regional LV wall motion and wall thickening. Normal LV systolic function. LVEF 65%-70% by visual estimate. Normal LV diastolic function for age. 2. Suggestive of estimated right ventricle systolic pressure to be near the upper limits of normal to mildly elevated. Normal right ventricle size and systolic function. Right atrium appeared normal in size. 3. Very mild aortic valve sclerosis of a 3-cuspid aortic valve. No aortic regurgitation. 4. Very mild mitral annular calcification. Trace mitral regurgitation. 5. Overall otherwise normal appearing echocardiogram Doppler findings. 6. Moderately technically difficult echocardiogram. DVT prophylaxis ordered?: Lovenox, SCD/teds ASSESSMENT AND PLAN: 74-year-old male, wheelchair bound (hx of spinal lumbar tu mor), MRSA, chronic back pain, Noted after a fall which patient reports was upon transferring from the chair to toilet and slipped out of the chair. There was concern for slurred speech. MRI of the brain did not reveal any evidence for CVA. Patient currently being treated for a large stage IV sacral ulcer as well as numerous pressure ulcers on his feet. #Stage IV sacral ulcer: evaluated by Dr. Webber. Recommends surgical debridement. Dr. Smith consulted. Recommending diverting colostomy as sacral wound is complicated by ongoing diarrhea. Plastic surgery consulted, Dr. Joiner. Debridement defered until after diverting colostomy and resolution of diarrhea. Patient will be here until seen again once Dr Smith is back 08/23/20 - MRI reviewed. Large cyst from T10-T12, likely a large pseudomeningocele, 15 cm x 4.7. cm. Fluid in the T11-T12 disc space, which may represent fluid extension from pseudomeningocele and cyst but cannot r/o infection, Dr Andre SILVER consulted. - spine surgery at [facility] on 08/19/20, a Dr. Gary, who agreed for transfer for workup of suspicious MRI findings for infection. Dr Rodriguez discussed the need for transfer with the patient, but Mr. Markham does not want to be transfer, and states that he would not go through with any surgical procedure. N o evidence of sacral osteomyelitis in visualized portion of sacrum. # Fall at home: patient describes fall as mechanical. CT head, MRI brain show no evidence for CVA or bleeding. Patient is now AAO x 3. Has good strength in bilateral upper extremities. #C diff: PCR positive on 08/16/20 for C diff. Vancomycin discontinued, switched to Dificid continue for at least 10 days. ID consulted. Diarrhea is improving. #BLE edema: 2D echo on 07/19/20, normal LVEF. Lasix 40 mg daily. prn doses of lasix based on daily exam. #L heel, achilles and medial malleolus wounds: podiatry consult, Dr. Olivarez s/p debridement. Hydophera blue dressing. #R heel pressure injury: heel float boot, foam dressing. # Weakness: This is likely chronic secondary to debility superimposed with spinal stenosis as well as lack of social support. Plan as above. # Enterococcus UTI: receiving vancomycin # Seizure disorder: Continue home medications # DVT prophylaxis: Alfonsox Bryson Hightower Hospitalist VS,[place], I+O VS, Fishbone, I+O Laboratory Tests 08/22/20 07:53 Vital Signs Date Time Temp Pulse Resp B/P (MAP) Pulse Ox O2 Delivery O2 Flow Rate FiO2 08/22/20 06:00 98.4 86 18 116/76 (89) 96 Room Air I&O- Last 24 Hours up to 6 AM 08/22/20 06:00 Intake Total 1590 ml Output Total 1950 ml Balance -360 ml DANIEL HIGHTOWER MD Aug 22, 2020 14:35
[2020-08-22] MEDS: VANCOMYCIN HCL 750 MG, VIAL MATE ADAPTER 1 EACH in NS 250 ML IV SCH ×2 (16:29→17:18)
[2020-08-22] MEDS: SANTYL OINT 30GM TOP SCH (17:19)
--- NOTE | 2020-08-22 17:36 | REP ---
INDICATION: eval amount of stool in colon. COMPARISON: August 17, 2020.. TECHNIQUE: KUB: Two views. FINDINGS: A vena cava filter is noted in place. There are surgical clips in the left mid abdomen. There is old posttraumatic deformity of the iliac crest on the left unchanged. There is an intramedullary sourav in the right proximal femur. A dextroconvex lumbar scoliotic curve is observed unchanged. The bowel gas pattern is unremarkable. There is formed stool in the rectum. No large or small bowel dilation is seen. Some formed stool is seen in the sigmoid colon. There is evidence of an epidural catheter overlying the spine. IMPRESSION: No evidence of bowel obstruction. Some formed stool in the sigmoid colon and rectum. IVC filter. <Electronically signed by Jacobo Padilla > 08/22/20 [id number]
[2020-08-22 22:20] VITALS: BP 117/62
[2020-08-23] MEDS: SLF 3 ML SYR IV SCH ×3 (06:19→21:09)
[2020-08-23 06:20] VITALS: BP 117/66
[2020-08-23 07:57] LABS: HEMATOCRIT 36.6 % (42.0-52.0); HEMOGLOBIN 11.5 g/dl (13.5-17.5); MEAN CORPUSCULAR HEMOGLOBIN 29.6 pg (27.0-33.0); MEAN CORPUSCULAR HGB CONC 31.4 g/dl (32.0-36.5); MEAN CORPUSCULAR VOLUME 94.3 fl (80.0-96.0); PLATELET COUNT, AUTOMATED 517 10^3/uL (150-450); RED BLOOD COUNT 3.88 10^6/uL (4.30-6.10); WHITE BLOOD COUNT 8.7 10^3/uL (4.0-10.0)
[2020-08-23 08:17] LABS: BLOOD UREA NITROGEN 17 MG/DL (7-18); CALCIUM LEVEL 8.1 MG/DL (8.8-10.2); CARBON DIOXIDE LEVEL 29 MEQ/L (21-32); CHLORIDE LEVEL 110 MEQ/L (98-107); CREATININE FOR GFR 0.54 MG/DL (0.70-1.30); GLOMERULAR FILTRATION RATE > 60.0 (>42); GLUCOSE, FASTING 90 MG/DL (70-100); POTASSIUM SERUM 4.3 MEQ/L (3.5-5.1); SODIUM LEVEL 143 MEQ/L (136-145)
--- NOTE | 2020-08-23 08:42 | IPNPDOC ---
Text Note Date of Service The patient was seen on 08/23/20. NOTE SUBJECTIVE: Patient was seen and examined at bedside. No change from yesterday feeling fine. No acute overnight events. . He denies any fevers chills nausea vomiting or pain denies chest pain or shortness of breath. OBJECTIVE PHYSICAL EXAMINATION: VITAL SIGNS: please see below General: NAD, comfortable HEENT: PERRLA, EOMI, sclerae clear Neck: supple, normal ROM, no JVD Respiratory: lungs CTAB, no wheeze, no rales, no crackles CVS: RRR, normal S1, S2, no murmurs Abdo: soft, no masses, no hepatosplenomegaly, BS+, no rebound tenderness Back: sacrum has a stave IV pressure ulcer. 11 x 8.5 x 1.4 cm. Palpable bone at base of wound. Extremities: R heel wound 1.5 cm x 1.0 cm with surrounding erythema. L heel large unstageable pressure injury ~7 cm in length. Black escar. L medial malleolus 2 x 1 cm wound. L achilles shows wound 3.4 cm x 1.5 cm. LE edema. Neuro: Paraplegia of lower extremities. Good upper extremity strength bilaterally. Psych: calm, cooperative, AAO x 3 LABORATORY DATA, IMAGING STUDIES, MICROBIOLOGY: Please see below. MRI sacrum w and wo contrast (08/18/20): 1. 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 There is fluid in T11-T12 disc space which may be fluid extension from the pseudomeningocele and cyst but cannot completely exclude infection. No additional findings to definitively indicate infection. Correlate clinically. 2. No evidence of sacral osteomyelitis in visualized portions of sacrum. Stable nonspecific presacral edema compared to prior CT of abdomen and pelvis. ECHO (08/16/20): 1. Normal left ventricle internal dimensions and wall thickness. Normal regional LV wall motion and wall thickening. Normal LV systolic function. LVEF 65%-70% by visual estimate. Normal LV diastolic function for age. 2. Suggestive of estimated right ventricle systolic pressure to be near the upper limits of normal to mildly elevated. Normal right ventricle size and systolic function. Right atrium appeared normal in size. 3. Very mild aortic valve sclerosis of a 3-cuspid aortic valve. No aortic regurgitation. 4. Very mild mitral annular calcification. Trace mitral regurgitation. 5. Overall otherwise normal appearing echocardiogram Doppler findings. 6. Moderately technically difficult echocardiogram. 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 There was concern for slurred speech. MRI of the brain did not reveal any evidence for CVA. Patient currently being treated for a large stage IV sacral ulcer as well as numerous pressure ulcers on his feet. #Stage IV sacral ulcer: evaluated by Dr. Webber. Recommends surgical debridement. Dr. Smith consulted. Recommending diverting colostomy as sacral wound is complicated by ongoing diarrhea but this is improving. Plastic surgery consulted, Dr. Joiner. Debridement defered until after diverting colostomy and resolution of diarrhea. Plan for diverting colostomy possibly tomorrow. - MRI reviewed. Large cyst from T10-T12, likely a large pseudomeningocele, 15 cm x 4.7. cm. Fluid in the T11-T12 disc space, which may represent fluid extension from pseudomeningocele and cyst but cannot r/o infection, Dr Andre SILVER consulted. - spine surgery at [facility] on 08/19/20, a Dr. Gary, who agreed for transfer for workup of suspicious MRI findings for infection. Dr Rodriguez discussed the need for transfer with the patient, but Mr. Markham does not want to be transfer, and states that he would not go through with any surgical procedure. No evidence of sacral osteomyelitis in visualized portion of sacrum. # Fall at home: patient describes fall as mechanical. CT head, MRI brain show no evidence for CVA or bleeding. Patient is now AAO x 3. Has good strength in bilateral upper extremities. #C diff: PCR positive on 08/16/20 for C diff. Vancomycin discontinued, switched to Dificid continue for at least 10 days. ID consulted. Diarrhea is improving. #BLE edema: 2D echo on 07/19/20, normal LVEF. Lasix 40 mg daily. prn doses of lasix based on daily exam. #L heel, achilles and medial malleolus wounds: podiatry consult, Dr. Olivarez s/p debridement. Hydophera blue dressing. #R heel pressure injury: heel float boot, foam dressing. # Weakness: This is likely chronic secondary to debility superimposed with spinal stenosis as well as lack of social support. Plan as above. # Enterococcus UTI: receiving vancomycin # Seizure disorder: Continue home medications # DVT prophylaxis: Lovenox A Katja Hospitalist VS,Royer[place], I+O VS, Fishbone, I+O Laboratory Tests 08/23/20 07:47 Vital Signs Date Time Temp Pulse Resp B/P (MAP) Pulse Ox O2 Delivery O2 Flow Rate FiO2 08/23/20 06:20 98.5 70 17 117/66 (83) 100 Room Air I&O- Last 24 Hours up to 6 AM 08/23/20 05:59 Intake Total 600 ml Output Total 2350 ml Balance -1750 ml DANIEL ANN MD Aug 23, 2020 08:42
[2020-08-23] MEDS: levETIRAcetam 250MG TABLET (KEPPRA) PO SCH ×2 (09:10→21:07)
[2020-08-23] MEDS: ENOXAPARIN 40MG/0.4ML SYRINGE (J1650 PER 10MG) SC SCH (09:10)
[2020-08-23] MEDS: FIDAXOMICIN 200 MG TAB (DIFICID) PO SCH ×2 (09:10→21:08)
[2020-08-23] MEDS: POTASSIUM CHLORIDE 10 MEQ SR TABLET PO SCH (09:11)
[2020-08-23] MEDS: FUROSEMIDE 40 MG TAB PO SCH (09:11)
[2020-08-23] MEDS: PREGABALIN 75 MG CAP(LYRICA) PO SCH ×2 (09:11→21:08)
[2020-08-23] MEDS: SANTYL OINT 30GM TOP SCH (09:12)
[2020-08-23 13:58] VITALS: BP 126/70
[2020-08-23] MEDS: VANCOMYCIN HCL 750 MG, VIAL MATE ADAPTER 1 EACH in NS 250 ML IV SCH ×3 (15:51→18:54)
[2020-08-23 20:00] VITALS: BP 129/59
[2020-08-23] MEDS: ACETAMINOPHEN TAB 650MG DOSE (2X325MG) PO PRN (21:09)
[2020-08-24] VITALS (7 sets, daily range): BP systolic 117–131; BP diastolic 61–73
[2020-08-24] MEDS: SLF 3 ML SYR IV SCH ×3 (06:52→21:07)
[2020-08-24 07:36] LABS: HEMATOCRIT 35.2 % (42.0-52.0); HEMOGLOBIN 11.2 g/dl (13.5-17.5); MEAN CORPUSCULAR HEMOGLOBIN 30.1 pg (27.0-33.0); MEAN CORPUSCULAR HGB CONC 31.8 g/dl (32.0-36.5); MEAN CORPUSCULAR VOLUME 94.6 fl (80.0-96.0); PLATELET COUNT, AUTOMATED 530 10^3/uL (150-450); RED BLOOD COUNT 3.72 10^6/uL (4.30-6.10); WHITE BLOOD COUNT 8.5 10^3/uL (4.0-10.0)
--- NOTE | 2020-08-24 07:42 | IPNPDOC ---
Text Note Date of Service The patient was seen on 08/24/20. VS,Larry, I+O VS, [place], I+O Laboratory Tests 08/23/20 07:47 08/24/20 07:05 Vital Signs Date Time Temp Pulse Resp B/P (MAP) Pulse Ox O2 Delivery O2 Flow Rate FiO2 08/24/20 05:49 98.2 81 20 128/69 (88) 97 Room Air I&O- Last 24 Hours up to 6 AM 08/24/20 06:00 Intake Total 1200 ml Output Total 2550 ml Balance -1350 ml DANIEL ANN MD Aug 24, 2020 07:42
[2020-08-24 08:06] LABS: BLOOD UREA NITROGEN 18 MG/DL (7-18); CALCIUM LEVEL 8.2 MG/DL (8.8-10.2); CARBON DIOXIDE LEVEL 30 MEQ/L (21-32); CHLORIDE LEVEL 109 MEQ/L (98-107); CREATININE FOR GFR 0.57 MG/DL (0.70-1.30); GLOMERULAR FILTRATION RATE > 60.0 (>42); GLUCOSE, FASTING 81 MG/DL (70-100); POTASSIUM SERUM 4.4 MEQ/L (3.5-5.1); SODIUM LEVEL 143 MEQ/L (136-145)
[2020-08-24] MEDS ORDERED: fentaNYL 250 MCG/5 ML INJECTION (J3010) As Ordered ONE (09:09)
[2020-08-24] MEDS ORDERED: MIDAZOLAM INJ 2MG/2ML VIAL (J2250 PER 1MG) As Ordered ONE (09:09)
[2020-08-24] MEDS ORDERED: propofoL 200 MG/20 ML VIAL As Ordered ONE (09:13)
[2020-08-24] MEDS ORDERED: LIDOCAINE 2% 100MG/5ML SDV (FOR ANES.) As Ordered ONE (09:14)
[2020-08-24] MEDS ORDERED: dexameTHASONE 4 MG/ML 1ML VIAL (J1100 PER 1MG) As Ordered ONE (09:15)
[2020-08-24] MEDS ORDERED: SUGAMMADEX SODIUM 500 MG/5 ML VIAL (BRIDION) As Ordered ONE (09:18)
[2020-08-24] MEDS ORDERED: ONDANSETRON 4MG/2ML VIAL As Ordered ONE (09:19)
[2020-08-24] MEDS ORDERED: KETOROLAC 60MG 2ML VIAL As Ordered ONE (09:19)
[2020-08-24] MEDS ORDERED: ACETAMINOPHEN 1000MG 100ML IV BTL (OFIRMEV) (J0131 PER 10MG) As Ordered ONE (09:19)
[2020-08-24] MEDS ORDERED: HYDROmorphone HCL 2 MG/ML 1ML VIAL (J1170) As Ordered ONE (09:19)
[2020-08-24] MEDS ORDERED: LIDOCAINE 5% OINT 30GM TUBE As Ordered ONE (09:25)
--- NOTE | 2020-08-24 09:29 | IPNPDOC ---
Text Note Date of Service The patient was seen on 08/24/20. NOTE Patient seen in the preoperative area. Reports no complaints, discomfort. Hos pital course reviewed and discussed with Dr. Joiner. Plan is for debridement of his sacral ulcer by Dr. oJiner. Then will perform laparoscopic colostomy placement. He has a left lower quadrant flank hernia with prior mesh placed so I anticipate some adhesions to get through and because of the hernia probably would opt to divide at the transverse colon and place the colostomy over the RUQ/LUQ area. Reviewed the plan with the patient, no concerns voiced by the patient. Questions with regards to colsotomy care and expected postoperative course discussed with the patient. VS,Fishbone, I+O VS, Fishbone, I+O Laboratory Tests 08/24/20 07:05 Vital Signs Date Time Temp Pulse Resp B/P (MAP) Pulse Ox O2 Delivery O2 Flow Rate FiO2 08/24/20 05:49 98.2 81 20 128/69 (88) 97 Room Air I&O- Last 24 Hours up to 6 AM 08/24/20 06:00 Intake Total 1200 ml Output Total 2550 ml Balance -1350 ml COLEEN JONES MD Aug 24, 2020 09:29
--- NOTE | 2020-08-24 09:31 | IPNPDOC ---
Subjective General Date Seen: Aug 24, 2020 Subject Chief Complaint/History The patient is a 74-year-old male admitted with a reason for visit of Uti,Weakness, Sacral Decubitus,Spinal Tumor. Patient is feeling well. He agreed with diverting colostomy. Sacral wound is improving slowly with Santyl and antibiotics. Current Medications Current Medications Current Medications Medications (Trade) Dose Ordered Sig/Mark Route PRN Reason Start Time Stop Time Status Last Admin Dose Admin Acetaminophen (Tylenol Tab) 650 mg Q4H PRN PO PAIN OR FEVER 08/14/20 01:25 08/23/20 21:09 Al Hydrox/Mg Hydrox/Simethicone (Mylanta) 30 ml DAILY PRN PO DYSPEPSIA 08/14/20 01:25 Cefepime HCl 2 gm/ Dextrose 50 ml @ 100 mls/hr Q12H IV 08/14/20 03:00 08/19/20 15:52 DC 08/19/20 15:26 Collagenase (SantyL) APPLY TO SACRUM DAILY TOP 08/22/20 09:00 08/23/20 09:12 Collagenase (SantyL) APPLY TO SACRUM DAILYPRN PRN TOP SOILED WOUND DRESSING 08/22/20 14:10 Docusate Sodium (Colace) 100 mg BID PO 08/14/20 09:00 08/19/20 15:44 DC 08/17/20 09:43 Enoxaparin Sodium (Lovenox) 40 mg DAILY SC 08/14/20 09:00 08/23/20 09:10 Fidaxomicin (Dificid) 200 mg BID PO 08/19/20 21:00 08/29/20 09:01 08/23/20 21:08 Furosemide (Lasix) 40 mg DAILY PO 08/14/20 09:00 08/23/20 09:11 Gabapentin (Neurontin) 600 mg BID PO 08/14/20 09:00 Hold Home Med (Med Rec Complete!) ASDIRECTED XX 08/14/20 07:25 08/14/20 07:23 DC Levetiracetam (Keppra) 750 mg DAILY PO 08/14/20 09:00 08/23/20 09:10 Levetiracetam (Keppra) 1,000 mg QHS PO 08/14/20 21:00 08/23/20 21:07 Magnesium Hydroxide (Milk Of Magnesia) 30 ml DAILY PRN PO CONSTIPATION 08/14/20 01:25 08/15/20 01:48 Polyethylene Glycol (Miralax) 1 pkt BID PRN PO CONSTIPATION 08/14/20 22:15 08/15/20 01:48 Potassium Chloride (Micro-K Extencaps) 20 meq DAILY PO 08/14/20 09:00 08/23/20 09:11 Pregabalin (Lyrica) 150 mg BID PO 08/14/20 09:00 08/23/20 21:08 Sodium Chloride (Saline Lock Flush) 2 ml ASDIRECTED PRN IV SEE LABEL COMMENTS 08/14/20 10:50 Sodium Chloride (Saline Lock Flush) 2 ml SLF IV 08/14/20 14:00 08/24/20 06:52 Vancomycin HCl (First-Vancomycin 50(Firvanq)- 250mg/5ml) 125 mg Q6H PO 08/16/20 18:00 08/19/20 15:52 DC 08/19/20 12:01 Vancomycin HCl 500 mg/Dextrose 110 ml @ 110 mls/hr Q12H IV 08/14/20 14:00 08/15/20 14:13 DC 08/15/20 02:05 Vancomycin HCl 750 mg/IV Miscellaneous Supplies 1 each/ Sodium Chloride 275 ml @ 275 mls/hr Q12H IV 08/14/20 14:00 08/15/20 14:13 DC 08/15/20 03:19 Vancomycin HCl 750 mg/IV Miscellaneous Supplies 1 each/ Sodium Chloride 275 ml @ 275 mls/hr Q24H IV 08/16/20 16:00 08/23/20 23:59 DC 08/23/20 17:01 Vancomycin HCl 750 mg/IV Miscellaneous Supplies 1 each/ Sodium Chloride 275 ml @ 275 mls/hr Q24H IV 08/16/20 17:00 08/23/20 23:59 DC 08/23/20 18:54 Vancomycin HCl 1000 mg/IV Miscellaneous Supplies 1 each/ Sodium Chloride 270 ml @ 270 mls/hr Q12H IV 08/14/20 01:55 Cancel Vancomycin HCl 1000 mg/IV Miscellaneous Supplies 1 each/ Sodium Chloride 270 ml @ 270 mls/hr Q12H IV 08/15/20 14:00 08/16/20 15:28 DC 08/16/20 02:17 Allergies Coded Allergies: linezolid (Verified Allergy, Unknown, 04/23/19) Objective Physical Examination Examination GENERAL APPEARANCE:Patient seen, laying in bed, awake, alert, and oriented. Comfortable, in no acute distress. SKIN: Warm and moist. Sacral wound 50 % yellow necrosis. LUNGS: Clear to auscultation bilaterally. No wheezing appreciated. HEART: No chest wall abnormalities. Regular rate and rhythm with no murmurs appreciated. ABDOMEN: Abdomen is soft, non-tender, non-distended. I EXTREMITIES: No edema identified. No calf tenderness. Vital Signs Vital Signs Date Time Temp Pulse Resp B/P (MAP) Pulse Ox O2 Delivery O2 Flow Rate FiO2 08/24/20 05:49 98.2 81 20 128/69 (88) 97 Room Air I&Os I&O- Last 24 Hours up to 6 AM 08/24/20 05:59 Intake Total 1500 ml Output Total 2550 ml Balance -1050 ml Laboratory Data Labs 24H Laboratory Tests 2 08/23/20 14:51: Coronavirus (COVID-19)(PCR) NEGATIVE 08/24/20 07:05: Nucleated Red Blood Cells % (auto) 0.0, Anion Gap 4L, Glomerular Filtration Rate > 60.0, Calcium Level 8.2L CBC/BMP Laboratory Tests 08/24/20 07:05 Microbiology Microbiology 08/14/20 Urine Culture - Final, Complete Enterococcus Faecalis Impression Sacral wound stage 4. Plan for surgical debridement of the wound today. Combination procedure with general surgery. Risks, benefits and alternatives discussed with patient. Plan / VTE VTE Prophylaxis Ordered?: Yes CHRISTOPHER HERNANDEZ DO Aug 24, 2020 09:31
[2020-08-24] MEDS ORDERED: UNASYN 3 GM VIAL As Ordered ONE (09:43)
[2020-08-24] MEDS ORDERED: BACITRACIN PWD 50,000 UNITS VIAL As Ordered ONE (09:43)
--- NOTE | 2020-08-24 09:55 | IPNPDOC ---
Text Note Date of Service The patient was seen on 08/24/20. NOTE SUBJECTIVE: Plan for surgery today. No change from yesterday feeling fine. No acute overnight events. OBJECTIVE VITAL SIGNS: please see below General: NAD, comfortable HEENT: PERRLA, EOMI, sclerae clear Neck: supple, normal ROM, no JVD Respiratory: lungs CTAB, no wheeze, no rales, no crackles CVS: RRR, normal S1, S2, no murmurs Abdo: soft, no masses, no hepatosplenomegaly, BS+, no rebound tenderness Neuro: Paraplegia of lower extremities. Good upper extremity strength bi laterally. Psych: calm, cooperative, AAO x 3 LABORATORY DATA, IMAGING STUDIES, MICROBIOLOGY: Please see below. MRI sacrum w and wo contrast (08/18/20): 1. 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 There is fluid in T11-T12 disc space which may be fluid extension from the pseudomeningocele and cyst but cannot completely exclude infection. No additional findings to definitively indicate infection. Correlate clinically. 2. No evidence of sacral osteomyelitis in visualized portions of sacrum. Stable nonspecific presacral edema compared to prior CT of abdomen and pelvis. ECHO (08/16/20): 1. Normal left ventricle internal dimensions and wall thickness. Normal regional LV wall motion and wall thickening. Normal LV systolic function. LVEF 65%-70% by visual estimate. Normal LV diastolic function for age. 2. Suggestive of estimated right ventricle systolic pressure to be near the upper limits of normal to mildly elevated. Normal right ventricle size and systolic function. Right atrium appeared normal in size. 3. Very mild aortic valve sclerosis of a 3-cuspid aortic valve. No aortic regurgitation. 4. Very mild mitral annular calcification. Trace mitral regurgitation. 5. Overall otherwise normal appearing echocardiogram Doppler findings. 6. Moderately technically difficult echocardiogram. 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 There was concern for slurred speech. MRI of the brain did not reveal any evidence for CVA. Patient currently being treated for a large stage IV sacral ulcer as well as numerous pressure ulcers on his feet. #Stage IV sacral ulcer: evaluated by Dr. Webber. Recommends surgical debridement. Dr. Smith consulted. Recommending diverting colostomy as sacral wound is complicated by ongoing diarrhea but this is improving. Plastic surgery consulted, Dr. Joiner. Debridement today of his sacral ulcer followed by diverting colostomy. - MRI reviewed. Large cyst from T10-T12, likely a large pseudomeningocele, 15 cm x 4.7. cm. Fluid in the T11-T12 disc space, which may represent fluid extension from pseudomeningocele and cyst but cannot r/o infection, Dr Andre SILVER consulted. - spine surgery at [facility] on 08/19/20, a Dr. Gary, who agreed for transfer for workup of suspicious MRI findings for infection. Dr Rodriguez discussed the need for transfer with the patient, but Mr. Markham does not want to be transfer, and states that he would not go through with any surgical procedure. No evidence of sacral osteomyelitis in visualized portion of sacrum. # Fall at home: patient describes fall as mechanical. CT head, MRI brain show no evidence for CVA or bleeding. Patient is now AAO x 3. Has good strength in bilateral upper extremities. #C diff: PCR positive on 08/16/20 for C diff. Vancomycin discontinued, switched to Dificid continue for at least 10 days. ID consulted. Diarrhea is improving. #BLE edema: 2D echo on 07/19/20, normal LVEF. Lasix 40 mg daily. prn doses of lasix based on daily exam. #L heel, achilles and medial malleolus wounds: podiatry consult, Dr. Olivarez s/p debridement. Hydophera blue dressing. #R heel pressure injury: heel float boot, foam dressing. # Weakness: This is likely chronic secondary to debility superimposed with spinal stenosis as well as lack of social support. Plan as above. # Enterococcus UTI: receiving vancomycin # Seizure disorder: Continue home medications # DVT prophylaxis: Magi Massey Yousef Hospitalist VS,Fishbone, I+O VS, Fishbone, I+O Laboratory Tests 08/24/20 07:05 Vital Signs Date Time Temp Pulse Resp B/P (MAP) Pulse Ox O2 Delivery O2 Flow Rate FiO2 08/24/20 05:49 98.2 81 20 128/69 (88) 97 Room Air I&O- Last 24 Hours up to 6 AM 08/24/20 06:00 Intake Total 1200 ml Output Total 2550 ml Balance -1350 ml DANIEL ANN MD Aug 24, 2020 09:55
[2020-08-24] MEDS ORDERED: LIDOCAINE 1% SDV 30ML VIAL As Ordered ONE (10:30)
[2020-08-24] MEDS ORDERED: BUPIVACAINE HCL 0.25% 30ML VIAL As Ordered ONE ×2 (10:30→11:09)
[2020-08-24] MEDS ORDERED: ROCURONIUM BROMIDE 50 MG/5 ML VIAL As Ordered ONE ×2 (10:32→11:54)
--- NOTE | 2020-08-24 10:58 | IPN ---
PROGRESS NOTE DATE: 08/23/2020 SUBJECTIVE: Mr. Markham is doing well. He denies any pain. No nausea, vomiting, or abdominal pain. No fever or chills. His diarrhea is improving. He is scheduled for a diverting colostomy tomorrow and debridement of the sacral wound. He has had no fever or chills. He is currently day #10 of IV vancomycin for Enterococcus faecalis bacteriuria. He is day #5 of fidaxomicin. OBJECTIVE: VITAL SIGNS: Temperature 98.5, pulse 69, respirations 20, blood pressure 129/59, O2 sat 97% on room air. HEART: Normal S1, S2. No murmurs. LUNGS: Clear. No wheezes, rales, or rhonchi. ABDOMEN: Obese, soft, and nontender. EXTREMITIES: Bilateral heel decubitus. They were not examined today. IMPRESSION: 1. Sacral decubitus ulcer doing better with collagenase. 2. Enterococcus faecalis urinary tract infection. Finish his 10 days of intravenous (IV) vancomycin today, which will be discontinued. 3. Clostridium difficile colitis on p.o. Dificid day #5 out of 10. Plan to discontinue IV vancomycin today. Continue Dificid for at least 10-14 days until diarrhea improves. PLAN Will continue to monitor wounds. Currently there is no evidence of infection, osteonecrosis wound, or healed decubitus. Schedule for diverting colostomy tomorrow. MTDD
--- NOTE | 2020-08-24 11:01 | ROOPDOC ---
[facility] Report Of Operation Report of Operation DATE OF PROCEDURE: 08/24/20 PREOPERATIVE DIAGNOSIS: Sacral wound stage 4 POSTOPERATIVE DIAGNOSIS: same FINDINGS: Sacral wound 5x7x1.5cm PROCEDURE: Irrigation and debridement sacral wound. SURGEON: Dr Hernandez ANESTHESIA: General SPECIMENS: Debrided tissue. Culture sacrum wound ESTIMATED BLOOD LOSS: 10cc REPLACED: none DRAINS: none. Wound vac. COMPLICATIONS: none POSTOPERATIVE CONDITION: stable Procedure: this is a 74-year-old male with stage IV sacral wound. Patient is scheduled for diverging colostomy surgery as well is sacral wound debridement today. Informed consent obtained from the patient. Risk, benefits, and alternatives discussed with the patient. He is ready to proceed. Patient brought into the operating room, placed in supine position, perioperative antibiotics given, compression stockings placed on the lower calves. General anesthesia is induced. She was turned in a lateral position right side down with all bony prominences protected. He is prepped and draped in the usual sterile fashion. Wound was remeasured. It's 5 x 7 x 1.5 cm with 4 cm undermining at 12:00. The started our procedure with excisional debridement using 10 blade and curettes. Cultures were sent. Debrided tissue sent to pathology. Wound irrigated with Bacitracin irrigation with power irrigater, total 3 litters. Hemostasis obtained. Wound vac placed on the wound. 125 mm Hg. Second part of the procedure was performed by Dr Smith, he will dictate diverting colostomy part in separate dictation. CHRISTOPHER HERNANDEZ DO Aug 24, 2020 11:01
--- NOTE | 2020-08-24 11:01 | POST-OPPD ---
Postoperative Procedure Note Date Of Procedure: Aug 24, 2020 PREOPERATIVE DIAGNOSIS: Sacral wound stage 4 POSTOPERATIVE DIAGNOSIS: same FINDINGS: Sacral wound 5x7x1.5cm PROCEDURE: Irrigation and debridement sacral wound. SURGEON: Dr Hernandez ANESTHESIA: General SPECIMENS: Debrided tissue. Culture sacrum wound ESTIMATED BLOOD LOSS: 10cc REPLACED: none DRAINS: none. Wound vac. COMPLICATIONS: none POSTOPERATIVE CONDITION: stable CHRISTOPHER HERNANDEZ DO Aug 24, 2020 11:01
[2020-08-24] MEDS ORDERED: LIDOCAINE 1% MDV 20ML VIAL As Ordered ONE (12:45)
[2020-08-24] MEDS ORDERED: fentaNYL 100 MCG/2 ML INJECTION (J3010) As Ordered ONE (12:57)
[2020-08-24] MEDS: fentaNYL 100 MCG/2 ML INJECTION (J3010) IV PRN ×4 (13:00→13:15)
[2020-08-24] MEDS ORDERED: oxyCODONE 5MG TAB PO PRN (13:05)
[2020-08-24] MEDS ORDERED: ONDANSETRON 4MG/2ML VIAL IV PRN (13:05)
[2020-08-24] MEDS ORDERED: LR 1,000 ML IV SCH (13:05)
[2020-08-24] MEDS: HYDROMORPHONE HCL 0.5 MG/ 0.5 ML SYRINGE (J1170 PER 1) IV PRN ×3 (13:26→13:42)
[2020-08-24] MEDS: levETIRAcetam 250MG TABLET (KEPPRA) PO SCH ×2 (16:14→20:26)
[2020-08-24] MEDS: FUROSEMIDE 40 MG TAB PO SCH (16:14)
[2020-08-24] MEDS: FIDAXOMICIN 200 MG TAB (DIFICID) PO SCH ×2 (16:14→20:26)
[2020-08-24] MEDS: POTASSIUM CHLORIDE 10 MEQ SR TABLET PO SCH (16:14)
[2020-08-24] MEDS: ENOXAPARIN 40MG/0.4ML SYRINGE (J1650 PER 10MG) SC SCH (16:15)
[2020-08-24] MEDS ORDERED: SODIUM CHLORIDE 0.9% INJ 10 ML SYR IV PRN (16:20)
[2020-08-24] MEDS: PREGABALIN 75 MG CAP(LYRICA) PO SCH ×2 (16:23→20:25)
--- NOTE | 2020-08-24 17:54 | REP ---
INDICATION: Poor venous access. COMPARISON: None. TECHNIQUE: The procedure was performed under the direct supervision of Dr. Soriano. The risks and benefits of the procedure were explained to the patient and informed consent was obtained. The right basilic vein was localized using ultrasound guidance. The skin was prepped and draped in a sterile fashion. 2% lidocaine was used as a local anesthetic. Using ultrasound guidance the basilic vein was cannulated and a 0.018 guidewire was inserted and advanced to the SVC using fluoroscopic guidance. The needle was removed and a 4.5 Guatemalan dilator and peel-away sheath was inserted over the guide wire. A 4.5 Guatemalan single lumen catheter was cut to length of 44 cm. The dilator was removed and the catheter was inserted over the guide wire with the tip ending in the SVC. The peel-away sheath was removed and the catheter was flushed with heparinized saline as per Hospital protocol. The catheter was affixed to the skin and a sterile dressing was applied. The patient tolerated the procedure well and there were no immediate complications. 0.8 minutes of fluoro time was utilized for this procedure. FINDINGS: None IMPRESSION: PICC line insertion right basilic vein with the tip ending in the SVC. <Electronically signed by Abdi Reyna > 08/24/20 [id number] <Electronically signed by Ezequiel Soriano > 08/24/20 [id number]
[2020-08-24] MEDS: SODIUM CHLORIDE 0.9% INJ 10 ML SYR IV SCH (18:33)
[2020-08-24] MEDS: PERCOCET 5MG/325MG TAB PO PRN (21:07)
[2020-08-25 00:51] VITALS: BP 122/60
[2020-08-25] MEDS: PERCOCET 5MG/325MG TAB PO PRN ×4 (05:10→21:58)
[2020-08-25] MEDS: SODIUM CHLORIDE 0.9% INJ 10 ML SYR IV SCH ×2 (05:10→17:19)
[2020-08-25] MEDS: SLF 3 ML SYR IV SCH ×3 (05:11→21:59)
[2020-08-25 05:57] VITALS: BP 17/63
[2020-08-25 06:17] LABS: HEMATOCRIT 33.7 % (42.0-52.0); HEMOGLOBIN 10.7 g/dl (13.5-17.5); MEAN CORPUSCULAR HEMOGLOBIN 30.3 pg (27.0-33.0); MEAN CORPUSCULAR HGB CONC 31.8 g/dl (32.0-36.5); MEAN CORPUSCULAR VOLUME 95.5 fl (80.0-96.0); PLATELET COUNT, AUTOMATED 507 10^3/uL (150-450); RED BLOOD COUNT 3.53 10^6/uL (4.30-6.10); WHITE BLOOD COUNT 12.9 10^3/uL (4.0-10.0)
[2020-08-25 06:38] LABS: BLOOD UREA NITROGEN 20 MG/DL (7-18); CALCIUM LEVEL 8.4 MG/DL (8.8-10.2); CARBON DIOXIDE LEVEL 30 MEQ/L (21-32); CHLORIDE LEVEL 107 MEQ/L (98-107); CREATININE FOR GFR 0.64 MG/DL (0.70-1.30); GLOMERULAR FILTRATION RATE > 60.0 (>42); GLUCOSE, FASTING 77 MG/DL (70-100); POTASSIUM SERUM 4.4 MEQ/L (3.5-5.1); SODIUM LEVEL 140 MEQ/L (136-145)
[2020-08-25] MEDS: PREGABALIN 75 MG CAP(LYRICA) PO SCH ×2 (08:58→21:57)
[2020-08-25] MEDS: FUROSEMIDE 40 MG TAB PO SCH (08:58)
[2020-08-25] MEDS: ENOXAPARIN 40MG/0.4ML SYRINGE (J1650 PER 10MG) SC SCH (08:59)
[2020-08-25] MEDS: FIDAXOMICIN 200 MG TAB (DIFICID) PO SCH ×2 (08:59→21:57)
[2020-08-25] MEDS: POTASSIUM CHLORIDE 10 MEQ SR TABLET PO SCH (08:59)
[2020-08-25] MEDS: levETIRAcetam 250MG TABLET (KEPPRA) PO SCH ×2 (08:59→21:57)
--- NOTE | 2020-08-25 10:32 | ROOPDOC ---
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 POSTPROCEDURE DIAGNOSES: same. PROCEDURE: Laparoscopic transverse colostomy placement. SURGEON: Coleen Adame MD BAGGAGE CLERK: ANESTHESIA: General Anesthesia. ESTIMATED BLOOD LOSS: Approximately 20 mL. COMPLICATIONS: none. REMARKS: Patient has a history of spinal cord tumor and spinal surgeries rendering him fecal incontinent. For years he has been disimpacting himself to be able to go, now with worsening sacral wound d/t diarrhea. PROCEDURE NOTE: Fairly large size abdominal wall defect on the left lateral abdominal wall, left flank area from his prior spinal surgery. This was containing some loops of bowel with no evidence of incarceration. He has multiple adhesions of the omentum at the midline that I had to bring down get through. . DESCRIPTION OF PROCEDURE: Patient received a dose of Unasyn 3 g IV preoperatively for wound prophylaxis. He was brought to the operating room, initially supine. General endotracheal anesthesia was established. Sequential compression device placed on both lower extremities were DVT prophylaxis. He was placed on the left lateral decubitus position and DrLazarus Carr did her debridement and placement of wound VAC on his sacral wound. After her procedure he placed him back supine with his right arm tucked. He is abdomen is widely prepped and draped in the usual sterile fashion. We p aused for a surgical timeout using both pre-incision safety checklist to verify correct patient, procedure site and additional clinical information prior to beginning the procedure I entered the abdomen over the patient's left upper quadrant area. A Veress needle was inserted and controlled fashion, CO2 insufflation and started to pressure of 15 mercury. Same incision a 5 mm optical port was placed under direct vision of laparoscope. Insertion asthma with multiple omental adhesions to the abdominal wall precluding view of the other side. Position slight Trendelenburg position tilted towards the right side. I maneuvered the laparosc ope was able to get a window to view the right side of the abdominal wall. Under direct vision a 5 mm port was placed under direct vision. Using this to port site divided the omental attachments to the upper anterior abdominal wall bringing this down. This enabled us to get a better view of the abdomen. He is a very floppy course of his transverse colon which comes down from the hepatic flexure going towards the left lower quadrant area. There remains multiple adhesions to the lower midline and to the left side of the abdomen. I did not bring this down but maneuvered the scope through to visualize the left flank hernia which was containing loops of small bowel as well as what I used the sigmoid colon. There was no signs of any obstructive process in this area. I placed a right upper quadrant port as well as and infraumbilical port and used these 3 ports as per my made working ports. I took down the omental attachments to the transverse colon as he goes past the midline. The mesenteric window was created. A converted my a right lower quadrant port to a 12 mm port for stapler. The distal transverse colon past the midline was then divided. The mesentery as well as omental attachments was freed up so I could deliver this up to towards the left upper quadrant area where I previously made long for preferred sites of the colostomy to avoid the prior hernia. This seems to come to the area over the left upper quadrant area well. At this point I released the pneumoperitoneum. A 2 cm disc size skin was taken this was taken deep through to the subcutaneous tissue to remove it. The anterior fascia was exposed and a vertical incision was created on the anterior fascia the rectus muscles were split and the posterior fascia was likewise opened up. The stump of the transverse colon was delivered through this ostomy site. On looking at the fascial defect I felt that the defect was a lot larger than the colon which is distended but the mesentery was not so bulky. Site closed part of this with #1 Vicryl to allow just my small finger through with the colostomy in place. The ports were removed, the 12 mm fascial defect was closed anteriorly with 0 Vicryl in a mattress fashion. The 4 port sites skin incision was closed with 4-0 Vicryl in a subcuticular pattern. The incisions were then covered and then we matured our colostomy in a Demetrice fashion. The colostomy appliance was then placed and this seems to fall flat and adequately located. The ostomy appliance is covering part of the left upper quadrant port site. Patient tolerated the procedure well, he was promptly awakened, extubated and brought to recovery room in stable condition. COLEEN JONES MD Aug 25, 2020 10:32
--- NOTE | 2020-08-25 12:35 | IPNPDOC ---
Text Note Date of Service The patient was seen on 08/25/20. NOTE SUBJECTIVE: Patient was seen and examined this morning. Patient had his surgery yesterday for his debridement of the sacral ulcer as well as his diverting colostomy. This morning he says he feels pre-well aside from some pain affecting his right shoulder which is new. I offered him a K pad as well as Lidoderm patch and we will obtain an x-ray of the right shoulder. Otherwise he feels well he has output in his colostomy bag. No acute overnight events reported to me. OBJECTIVE VITAL SIGNS: please see below General: NAD, comfortable HEENT: PERRLA, EOMI, sclerae clear Neck: supple, normal ROM, no JVD Respiratory: lungs CTAB, no wheeze, no rales, no crackles CVS: RRR, normal S1, S2, no murmurs Abdo: soft, no masses, no hepatosplenomegaly, BS+, colostomy bag in place with stool. Back: Sacral ulcer status post debridement with wound VAC in place Neuro: Paraplegia of lower extremities. Good upper extremity strength bilaterally. Psych: calm, cooperative, AAO x 3 LABORATORY DATA, IMAGING STUDIES, MICROBIOLOGY: Please see below. MRI sacrum w and wo contrast (08/18/20): 1. 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 There is fluid in T11-T12 disc space which may be fluid extension from the pseudomeningocele and cyst but cannot completely exclude infection. No additional findings to definitively indicate infection. Correlate clinically. 2. No evidence of sacral osteomyelitis in visualized portions of sacrum. Stable nonspecific presacral edema compared to prior CT of abdomen and pelvis. ECHO (08/16/20): 1. Normal left ventricle internal dimensions and wall thickness. Normal regional LV wall motion and wall thickening. Normal LV systolic function. LVEF 65%-70% by visual estimate. Normal LV diastolic function for age. 2. Suggestive of estimated right ventricle systolic pressure to be near the upper limits of normal to mildly elevated. Normal right ventricle size and systolic function. Right atrium appeared normal in size. 3. Very mild aortic valve sclerosis of a 3-cuspid aortic valve. No aortic regurgitation. 4. Very mild mitral annular calcification. Trace mitral regurgitation. 5. Overall otherwise normal appearing echocardiogram Doppler findings. 6. Moderately technically difficult echocardiogram. 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 There was concern for slurred speech. MRI of the brain did not reveal any evidence for CVA. Patient currently being treated for a large stage IV sacral ulcer as well as numerous pressure ulcers on his feet. Patient underwent surgical debridement of his sacral ulcer 08/24/[address] Joiner wound VAC is now in place. On the same day he also underwent diverting colostomy with Dr. Smith. #Stage IV sacral ulcer: Patient underwent surgical debridement of his sacral ulcer 08/24/[address] Joiner wound VAC is now in place. On the same day he also underwent diverting colostomy with Dr. Smith. Management per surgery. Evaluation by therapy after surgery will likely need rehabilitation. # Right shoulder pain: Follow up x-ray of shoulder. Lidocaine patch trial. K pad. # Fall at home: patient describes fall as mechanical. CT head, MRI brain show no evidence for CVA or bleeding. Patient is now AAO x 3. Has good strength in bilateral upper extremities. # C diff: PCR positive on 08/16/20 for C diff. Vancomycin discontinued, switched to Dificid continue for at least 10 days. ID consulted. Diarrhea is improving. # BLE edema: 2D echo on 07/19/20, normal LVEF. Lasix 40 mg daily. prn doses of lasix based on daily exam. # L heel, achilles and medial malleolus wounds: podiatry consult, Dr. Olivarez s/p debridement. Hydophera blue dressing. # R heel pressure injury: heel float boot, foam dressing. # Weakness: This is likely chronic secondary to debility superimposed with spinal stenosis as well as lack of social support. Plan as above. # Enterococcus UTI: receiving vancomycin # Seizure disorder: Continue home medications # DVT prophylaxis: Magi Sherwoodf Hospitalist VS,Fishbone, I+O VS, Fishbone, I+O Laboratory Tests 08/25/20 05:51 Vital Signs Date Time Temp Pulse Resp B/P (MAP) Pulse Ox O2 Delivery O2 Flow Rate FiO2 08/25/20 11:37 18 96 Room Air 08/25/20 05:57 97.9 78 17/63 (48) 08/24/20 13:15 2 08/24/20 12:43 100 I&O- Last 24 Hours up to 6 AM 08/25/20 06:00 Intake Total 3720 ml Output Total 1375 ml Balance 2345 ml DANIEL ANN MD Aug 25, 2020 12:35
[2020-08-25] MEDS ORDERED: LIDOCAINE 5% (LIDODERM) PATCH TD ONE (13:00)
[2020-08-25 13:37] VITALS: BP 117/59
--- NOTE | 2020-08-25 13:50 | REP ---
INDICATION: R shoulder pain. COMPARISON: None. TECHNIQUE: A single AP view of the right shoulder is provided. FINDINGS: AP view of the right shoulder demonstrate a right-sided PICC line in place with its tip in the expected location of superior vena cava. The right glenohumeral and acromioclavicular joints are normally aligned. Periarticular soft tissues are otherwise unremarkable. No abnormality is noted in the right hemithorax. IMPRESSION: PICC line noted in place. Otherwise unremarkable AP view of the right shoulder. <Electronically signed by Jacobo Padilla > 08/25/20 [id number]
--- NOTE | 2020-08-25 18:57 | IPN ---
PROGRESS NOTE DATE: 08/25/2020 HISTORY: Patient is now postoperative day #1 from a laparoscopic transverse colostomy. This was done because of fecal incontinence with a sacral pressure ulcer. Patient is complaining of some abdominal discomfort, but complains even more about pain in his right shoulder. It is not clear if this represents referred pain from the diaphragm, but it seems more consistent with some sort of direct shoulder discomfort. He has had no nausea or vomiting. He has been taking a diet well. Vital signs show that he has been afebrile over the past 24 hours. Pulse is in the 70s and 80s and blood pressure is good. Room air oxygen saturations are normal. Intake and output: Yesterday he had 3400 in with 1600 out. PHYSICAL EXAMINATION: The patient is lying quietly on the hospital bed. He is complaining of right shoulder pain in the area of the mid clavicle and just above this. He reports this area is even sensitive to palpation. There is no obvious abnormality in this area. Certainly, the bone is feeling intact. There is no sign of injury. He has a palpable pulse on the right with a peripherally inserted central catheter (PICC) line in the upper arm. Heart exam shows a regular rate and rhythm. The lungs show good breath sounds. The abdomen reveals a couple of small trocar sites on the right. He has the colostomy near the midline. The stoma is quite edematous and prominent and there is a small amount of stool in the ostomy bag. LABORATORY STUDIES: Laboratory studies show a white count of 13, hemoglobin 11, hematocrit of 34 and a platelet count of 507,000. Chemistry profile shows normal electrolytes with a BUN of 20, creatinine 0.6 and a glucose of 77. IMPRESSION: Patient has done well with his colostomy. He has a small amount of stool in the ostomy bag already. He remains on antibiotics for his sacral wound. PLAN: Patient will remain on a regular diet. I would anticipate it will take some time for the edema to reduce in his ostomy. He does not appear to have any obvious injury to his shoulder. This may be related to positioning in the operating room, in which case I would anticipate this would be transient. Likewise, if this represents referred pain from the diaphragm, this should also be a transient thing. RUDY
[2020-08-25 20:56] VITALS: BP 129/63
[2020-08-26] MEDS ORDERED: **NOTE PATIENT COMMENT** MISC XX ONE (01:00)
[2020-08-26 06:03] VITALS: BP 122/67
[2020-08-26] MEDS: SLF 3 ML SYR IV SCH (06:26)
[2020-08-26] MEDS: SODIUM CHLORIDE 0.9% INJ 10 ML SYR IV SCH ×2 (06:26→17:47)
[2020-08-26 07:09] LABS: HEMATOCRIT 31.3 % (42.0-52.0); HEMOGLOBIN 9.9 g/dl (13.5-17.5); MEAN CORPUSCULAR HEMOGLOBIN 30.5 pg (27.0-33.0); MEAN CORPUSCULAR HGB CONC 31.6 g/dl (32.0-36.5); MEAN CORPUSCULAR VOLUME 96.3 fl (80.0-96.0); PLATELET COUNT, AUTOMATED 472 10^3/uL (150-450); RED BLOOD COUNT 3.25 10^6/uL (4.30-6.10); WHITE BLOOD COUNT 14.3 10^3/uL (4.0-10.0)
[2020-08-26 07:34] LABS: BLOOD UREA NITROGEN 20 MG/DL (7-18); CALCIUM LEVEL 8.1 MG/DL (8.8-10.2); CARBON DIOXIDE LEVEL 32 MEQ/L (21-32); CHLORIDE LEVEL 106 MEQ/L (98-107); CREATININE FOR GFR 0.65 MG/DL (0.70-1.30); GLOMERULAR FILTRATION RATE > 60.0 (>42); GLUCOSE, FASTING 72 MG/DL (70-100); SODIUM LEVEL 140 MEQ/L (136-145)
[2020-08-26] MEDS: FIDAXOMICIN 200 MG TAB (DIFICID) PO SCH ×2 (09:28→20:36)
[2020-08-26] MEDS: POTASSIUM CHLORIDE 10 MEQ SR TABLET PO SCH (09:29)
[2020-08-26] MEDS: levETIRAcetam 250MG TABLET (KEPPRA) PO SCH ×2 (09:29→20:36)
[2020-08-26] MEDS: PREGABALIN 75 MG CAP(LYRICA) PO SCH ×2 (09:29→20:36)
[2020-08-26] MEDS: ENOXAPARIN 40MG/0.4ML SYRINGE (J1650 PER 10MG) SC SCH (09:29)
[2020-08-26] MEDS: FUROSEMIDE 40 MG TAB PO SCH (09:30)
[2020-08-26] MEDS: PERCOCET 5MG/325MG TAB PO PRN ×3 (09:38→22:37)
[2020-08-26 14:00] VITALS: BP 125/67
--- NOTE | 2020-08-26 14:19 | IPNPDOC ---
Text Note Date of Service The patient was seen on 08/26/20. NOTE SUBJECTIVE: Patient is awake, alert, oriented 3. He does not appear to be any acute distress at this time. He reports that his shoulder pain is significantly improved from yesterday, last night it had begun to affect both of the shoulders, but now it is calmed down and seems to only have a soreness on the left side near the clavicle. Otherwise, it appears that his ostomy continues to have output, there is no leakage around the bag, the patient indicates that he is trying to learn from the nurses how to appropriately care for his colostomy site. Otherwise, he does not have any acute complaints at this time. The remainder of his review of systems is negative. OBJECTIVE VITAL SIGNS: please see below General: NAD, comfortable HEENT: PERRLA, EOMI, sclerae clear Neck: supple, normal ROM, no JVD Respiratory: lungs CTAB, no wheeze, no rales, no crackles CVS: RRR, normal S1, S2, no murmurs Abdo: soft, no masses, no hepatosplenomegaly, BS+, colostomy bag in place with stool. Edema of colostomy site noted. Back: Sacral ulcer status post debridement with wound VAC in place Neuro: Paraplegia of lower extremities. Good upper extremity strength bilaterally. Psych: calm, cooperative, AAO x 3 LABORATORY DATA, IMAGING STUDIES, MICROBIOLOGY: Please see below. MRI sacrum w and wo contrast (08/18/20): 1. 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 There is fluid in T11-T12 disc space which may be fluid extension from the pseudomeningocele and cyst but cannot completely exclude infection. No additional findings to definitively indicate infection. Correlate clinically. 2. No evidence of sacral osteomyelitis in visualized portions of sacrum. Stable nonspecific presacral edema compared to prior CT of abdomen and pelvis. ECHO (08/16/20): 1. Normal left ventricle internal dimensions and wall thickness. Normal regional LV wall motion and wall thickening. Normal LV systolic function. LVEF 65%-70% by visual estimate. Normal LV diastolic function for age. 2. Suggestive of estimated right ventricle systolic pressure to be near the upper limits of normal to mildly elevated. Normal right ventricle size and systolic function. Right atrium appeared normal in size. 3. Very mild aortic valve sclerosis of a 3-cuspid aortic valve. No aortic regurgitation. 4. Very mild mitral annular calcification. Trace mitral regurgitation. 5. Overall otherwise normal appearing echocardiogram Doppler findings. 6. Moderately technically difficult echocardiogram. 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 There was concern for slurred speech. MRI of the brain did not reveal any evidence for CVA. Patient currently being treated for a large stage IV sacral ulcer as well as numerous pressure ulcers on his feet. Patient underwent surgical debridement of his sacral ulcer 08/24/[address] Joiner wound VAC is now in place. On the same day he also underwent diverting colostomy with Dr. Smith. #Stage IV sacral ulcer: Patient underwent surgical debridement of his sacral ulcer 08/24/[address] Joiner wound VAC is now in place. On the same day he also underwent diverting colostomy with Dr. Smith. Management per surgery. Evaluation by therapy after surgery will likely need rehabilitation. #Bilateral shoulder pain: Now improving. # Fall at home: patient describes fall as mechanical. CT head, MRI brain show no evidence for CVA or bleeding. Patient is now AAO x 3. Has good strength in bilateral upper extremities. # C diff: PCR positive on 08/16/20 for C diff. Vancomycin discontinued, switched to Dificid continue for at least 10 days. ID consulted. Diarrhea is improving. # BLE edema: 2D echo on 07/19/20, normal LVEF. Lasix 40 mg daily. prn doses of lasix based on daily exam. # L heel, achilles and medial malleolus wounds: podiatry consult, Dr. Olivarez s/p debridement. Hydophera blue dressing. # R heel pressure injury: heel float boot, foam dressing. # Weakness: This is likely chronic secondary to debility superimposed with spinal stenosis as well as lack of social support. Plan as above. # Enterococcus UTI: Completed course of vancomycin # Seizure disorder: Continue home medications # DVT prophylaxis: Lovenox VS,Fishbone, I+O VS, Fishbone, I+O Laboratory Tests 08/26/20 06:44 Vital Signs Date Time Temp Pulse Resp B/P (MAP) Pulse Ox O2 Delivery O2 Flow Rate FiO2 08/26/20 10:08 17 08/26/20 06:03 98.6 89 122/67 (85) 95 Room Air 08/24/20 13:15 2 08/24/20 12:43 100 I&O- Last 24 Hours up to 6 AM 08/26/20 06:00 Intake Total 1500 ml Output Total 550 ml Balance 950 ml DOYLE SANCHEZ 28, 2021 14:18
--- NOTE | 2020-08-26 16:40 | IPN ---
PROGRESS NOTE DATE: 08/26/2020 HISTORY: Patient is now postoperative day #2 from a laparoscopic transverse colostomy. The nurse was concerned today about the degree of swelling of his stoma. Patient complains of some abdominal pain at the site of his colostomy, but his right shoulder pain complaint from yesterday has apparently resolved. Vital signs show that he had a maximum temperature of 101.2 last evening, but he has been afebrile after midnight. His pulse is generally in the 70s and 80s and his blood pressure has been good. Room air oxygen saturation are in the mid-90s. Intake and output show that yesterday he had 1800 in with 900 mL recorded out. He does have a small amount of stool coming out in his colostomy. PHYSICAL EXAMINATION: Patient is alert and cooperative. He appears fairly comfortable lying in bed. Skin is warm and dry. Heart exam shows a regular rhythm. The lungs are clear. The abdomen is full, but I think soft. There is a small amount of bloody fluid that has drained underneath the edge of his stoma wafer on the medial aspect. The stoma is quite edematous, but does not look worse to me today than it did yesterday. He does have bowel sounds present and his other identified trocar sites appear clean. LABORATORY STUDIES: Laboratory studies today show a white count of 14, hemoglobin 10, hematocrit 31 and a platelet count of 472,000. Chemistry profile shows normal electrolytes with a BUN of 20, creatinine 0.65 and a glucose of 72. IMPRESSION: The patient appears to be doing well today now two days postoperatively from his colostomy. He does have significant swelling of the stoma, as is usually the case. His right shoulder pain from yesterday has resolved. PLAN: Patient will continue with his current care. He has pain medicines available on an as needed basis and remains on a regular diet. He will continue with his wound VAC care to his sacral wound as well. RUDY
[2020-08-26] MEDS: NYSTATIN 100,000 UNITS/GM TOPICAL PWD 15 GM TOP SCH ×2 (20:36→20:37)
[2020-08-26 22:00] VITALS: BP 124/65
[2020-08-27] MEDS: SODIUM CHLORIDE 0.9% INJ 10 ML SYR IV SCH ×2 (05:50→17:35)
[2020-08-27 06:00] VITALS: BP 137/77
[2020-08-27 06:50] LABS: HEMATOCRIT 31.1 % (42.0-52.0); HEMOGLOBIN 10.2 g/dl (13.5-17.5); MEAN CORPUSCULAR HEMOGLOBIN 30.7 pg (27.0-33.0); MEAN CORPUSCULAR HGB CONC 32.8 g/dl (32.0-36.5); MEAN CORPUSCULAR VOLUME 93.7 fl (80.0-96.0); PLATELET COUNT, AUTOMATED 435 10^3/uL (150-450); RED BLOOD COUNT 3.32 10^6/uL (4.30-6.10); WHITE BLOOD COUNT 14.5 10^3/uL (4.0-10.0)
[2020-08-27 07:17] LABS: BLOOD UREA NITROGEN 19 MG/DL (7-18); CALCIUM LEVEL 8.1 MG/DL (8.8-10.2); CARBON DIOXIDE LEVEL 29 MEQ/L (21-32); CHLORIDE LEVEL 107 MEQ/L (98-107); CREATININE FOR GFR 0.45 MG/DL (0.70-1.30); GLOMERULAR FILTRATION RATE > 60.0 (>42); GLUCOSE, FASTING 84 MG/DL (70-100); POTASSIUM SERUM 3.9 MEQ/L (3.5-5.1); SODIUM LEVEL 141 MEQ/L (136-145)
[2020-08-27] MEDS: PERCOCET 5MG/325MG TAB PO PRN ×2 (08:27→17:36)
[2020-08-27 08:30] VITALS: BP 136/73
[2020-08-27] MEDS: FIDAXOMICIN 200 MG TAB (DIFICID) PO SCH ×2 (10:49→21:52)
[2020-08-27] MEDS: POTASSIUM CHLORIDE 10 MEQ SR TABLET PO SCH (10:49)
[2020-08-27] MEDS: levETIRAcetam 250MG TABLET (KEPPRA) PO SCH ×2 (10:50→21:50)
[2020-08-27] MEDS: PREGABALIN 75 MG CAP(LYRICA) PO SCH ×2 (10:51→21:51)
[2020-08-27] MEDS: FUROSEMIDE 40 MG TAB PO SCH (10:52)
--- NOTE | 2020-08-27 10:52 | IPNPDOC ---
Text Note Date of Service The patient was seen on 08/27/20. NOTE POD3 Lap transverse colostomy placement patient complains of abodminal pain around ostomy site, ostomy looks swollen, abdomen looks moderately distended, soft. tenderness most prominent to the left of the colostomy and near laparoscopic incision/port sites. will get xray to gauge degree of distention. It may be that the swelling is causing some forward obstruction though there is brown stool and liquid noted in the bag, not much air though. So far he is tolerating regular food and denies any nausea so would continue with the diet for now. Reviewed the multiple view x-ray that was just done today and there is no free air. There is a more prominent distention of the transverse colon as it comes out of the colostomy. There is no signs of obstruction. This goes with my impression that because of the swelling at the colostomy site may be causing the small amount of obstruction. I expect the swelling to come down by itself in the next few days. Since he is tolerating regular diet, can continue on that. VS,[place], I+O VS, [place], I+O Laboratory Tests 08/27/20 06:35 Vital Signs Date Time Temp Pulse Resp B/P (MAP) Pulse Ox O2 Delivery O2 Flow Rate FiO2 08/27/20 08:57 19 08/27/20 08:30 97.2 89 136/73 (94) 94 Room Air 08/24/20 13:15 2 08/24/20 12:43 100 I&O- Last 24 Hours up to 6 AM 08/27/20 06:00 Intake Total 1650 ml Output Total 1400 ml Balance 250 ml COLEEN JONES MD Aug 27, 2020 10:51
[2020-08-27] MEDS: NYSTATIN 100,000 UNITS/GM TOPICAL PWD 15 GM TOP SCH ×2 (10:54→21:52)
[2020-08-27] MEDS: ENOXAPARIN 40MG/0.4ML SYRINGE (J1650 PER 10MG) SC SCH (10:54)
--- NOTE | 2020-08-27 12:17 | REP ---
INDICATION: abdominal pain, s/p colostomy COMPARISON: 08/22/2020 TECHNIQUE: Supine and cross-table lateral views of the abdomen and pelvis. Frontal view of the chest. FINDINGS: Bowel gas pattern is nonspecific. Ostomy overlies the mid abdomen. IVC filter identified in seemingly satisfactory position. Skeletal structures demonstrate osteopenia and degenerative changes irregularity of the left tamy sacrum and left iliac again noted. Frontal view of the chest demonstrates right PICC line with tip in the SVC. Bilateral infrahilar/lower lobe opacities/atelectasis suspected. IMPRESSION: Relatively nonspecific bowel gas pattern. <Electronically signed by Thad Kenney > 08/27/20 1216
[2020-08-27 14:00] VITALS: BP 131/70
--- NOTE | 2020-08-27 17:22 | IPNPDOC ---
Text Note Date of Service The patient was seen on 08/27/20. NOTE SUBJECTIVE: Patient was sleeping when I entered the room. He was easily awoken. He reports that his shoulder pain is essentially resolved today. His only complaint is that of some mild abdominal pain across his midabdomen. The pain described seems to be mild in nature, but it isn't nevertheless uncomfortable. Otherwise, he does not have any additional complaints at this time. He is tolerating his diet. He does not feel any pain in the location of his wounds. OBJECTIVE General: NAD, comfortable HEENT: PERRLA, EOMI, sclerae clear Neck: supple, normal ROM, no JVD Respiratory: lungs CTAB, no wheeze, no rales, no crackles CVS: RRR, normal S1, S2, no murmurs Abdo: soft, no masses, no hepatosplenomegaly, BS+, colostomy bag in place with stool. Edema colostomy site appears unchanged from yesterday. Back: wound VAC in place Neuro: Paraplegia of lower extremities. Good upper extremity strength bilaterally. Psych: calm, cooperative, AAO x 3 ASSESSMENT AND PLAN: 74-year-old male, wheelchair bound (hx of spinal lumbar tumor), MRSA, chronic back pain, Noted after a fall which patient reports was upon transferring from the chair to toilet and slipped out of the chair. There was concern for slurred speech. MRI of the brain did not reveal any evidence for CVA. Patient currently being treated for a large stage IV sacral ulcer as well as numerous pressure ulcers on his feet. Patient underwent surgical debridement of his sacral ulcer 08/24/2020, wound VAC is now in place. On the same day he also underwent diverting colostomy. #Stage IV sacral ulcer: Patient underwent surgical debridement of his sacral ulcer 08/24/2020. Wound VAC is now in place. On the same day he also underwent diverting colostomy. Management per surgery. Evaluation by therapy after surgery will likely need rehabilitation. # Fall at home: patient describes fall as mechanical. CT head, MRI brain show no evidence for CVA or bleeding. Patient is now AAO x 3. Has good strength in bilateral upper extremities. # C diff: PCR positive on 08/16/20 for C diff. Vancomycin discontinued, switched to Dificid continue for at least 10 days. ID consulted. Diarrhea is improving. # BLE edema: 2D echo on 07/19/20, normal LVEF. Lasix 40 mg daily. prn doses of lasix based on daily exam. # L heel, achilles and medial malleolus wounds: podiatry consult, Dr. Olivarez s/p debridement. Hydophera blue dressing. # R heel pressure injury: heel float boot, foam dressing. # Weakness: This is likely chronic secondary to debility superimposed with spinal stenosis as well as lack of social support. Plan as above. # Enterococcus UTI: Completed course of vancomycin # Seizure disorder: Continue home medications # Bilateral shoulder pain: Resolved. # DVT prophylaxis: Lovenox VS,Fishbone, I+O VS, Fishbone, I+O Laboratory Tests 08/27/20 06:35 Vital Signs Date Time Temp Pulse Resp B/P (MAP) Pulse Ox O2 Delivery O2 Flow Rate FiO2 08/27/20 14:00 97.3 91 18 131/70 (90) 94 Room Air 08/24/20 13:15 2 08/24/20 12:43 100 I&O- Last 24 Hours up to 6 AM 08/27/20 06:00 Intake Total 1650 ml Output Total 1400 ml Balance 250 ml DOYLE SANCHEZ DO Aug 27, 2020 17:22
--- NOTE | 2020-08-27 18:30 | IPNPDOC ---
Subjective General Date Seen: Aug 27, 2020 Subject Chief Complaint/History The patient is a 75-year-old male admitted with a reason for visit of Uti,Weakness, Sacral Decubitus,Spinal Tumor. Patient seen and examined. Wound vac is being changed today. No new complains. Colostomy functioning. Current Medications Current Medications Current Medications Medications (Trade) Dose Ordered Sig/Mark Route PRN Reason Start Time Stop Time Status Last Admin Dose Admin Acetaminophen (Tylenol Tab) 650 mg Q4H PRN PO PAIN OR FEVER 08/14/20 01:25 08/23/20 21:09 Al Hydrox/Mg Hydrox/Simethicone (Mylanta) 30 ml DAILY PRN PO DYSPEPSIA 08/14/20 01:25 Cefepime HCl 2 gm/ Dextrose 50 ml @ 100 mls/hr Q12H IV 08/14/20 03:00 08/19/20 15:52 DC 08/19/20 15:26 Collagenase (SantyL) APPLY TO SACRUM DAILY TOP 08/22/20 09:00 08/24/20 12:51 DC 08/23/20 09:12 Collagenase (SantyL) APPLY TO SACRUM DAILYPRN PRN TOP SOILED WOUND DRESSING 08/22/20 14:10 08/24/20 12:51 DC Docusate Sodium (Colace) 100 mg BID PO 08/14/20 09:00 08/19/20 15:44 DC 08/17/20 09:43 Enoxaparin Sodium (Lovenox) 40 mg DAILY SC 08/14/20 09:00 08/27/20 10:54 Fentanyl Citrate (Sublimaze) 25 mcg Q5MP PRN IV PAIN LEVEL 5-10 08/24/20 13:05 08/24/20 13:16 DC 08/24/20 13:15 Fidaxomicin (Dificid) 200 mg BID PO 08/19/20 21:00 08/29/20 09:01 08/27/20 10:49 Furosemide (Lasix) 40 mg DAILY PO 08/14/20 09:00 08/27/20 10:52 Gabapentin (Neurontin) 600 mg BID PO 08/14/20 09:00 Hold Heparin Sodium (Heparin (Flush)) 200 units ASDIRECTED PRN IV SEE LABEL COMMENTS 08/24/20 16:20 Heparin Sodium (Heparin (Flush)) 200 units PICC IV 3/26/21 18:00 08/27/20 17:35 Home Med (Med Rec Complete!) ASDIRECTED XX 08/14/20 07:25 08/14/20 07:23 DC Hydromorphone HCl (Dilaudid) 0.2 mg Q5MP PRN IV PAIN LEVEL 4-7 08/24/20 13:05 08/24/20 14:05 DC 08/24/20 13:42 Lactated Ringer's 1,000 ml @ 100 mls/hr Q10H IV 08/24/20 13:05 08/24/20 14:05 DC Levetiracetam (Keppra) 750 mg DAILY PO 08/14/20 09:00 08/27/20 10:50 Levetiracetam (Keppra) 1,000 mg QHS PO 08/14/20 21:00 08/26/20 20:36 Magnesium Hydroxide (Milk Of Magnesia) 30 ml DAILY PRN PO CONSTIPATION 08/14/20 01:25 08/15/20 01:48 Nystatin (Mycostatin Powder, Nystop) groin BID TOP 08/26/20 21:00 08/27/20 10:54 Ondansetron HCl (ZOFRAN INJection) 4 mg Q4HP PRN IV NAUSEA OR VOMITING 08/24/20 13:05 08/24/20 14:05 DC Oxycodone HCl (Roxicodone, Oxyir) 5 mg ASDIRECTED PRN PO PAIN LEVEL 1-4 08/24/20 13:05 08/24/20 14:05 DC 08/24/20 13:26 Oxycodone/ Acetaminophen (Percocet 5mg/ 325mg Tablet) 1 tab Q6HP PRN PO MODERATE PAIN (PS 5-7) 08/24/20 12:45 08/27/20 17:36 Polyethylene Glycol (Miralax) 1 pkt BID PRN PO CONSTIPATION 08/14/20 22:15 08/15/20 01:48 Potassium Chloride (Micro-K Extencaps) 20 meq DAILY PO 08/14/20 09:00 08/27/20 10:49 Pregabalin (Lyrica) 150 mg BID PO 08/14/20 09:00 08/27/20 10:51 Sodium Chloride (Saline Lock Flush) 2 ml ASDIRECTED PRN IV SEE LABEL COMMENTS 08/14/20 10:50 08/26/20 14:24 DC Sodium Chloride (Saline Lock Flush) 2 ml SLF IV 08/14/20 14:00 08/26/20 14:24 DC 08/26/20 06:26 Sodium Chloride (Saline Lock Flush) 10 ml ASDIRECTED PRN IV SEE LABEL COMMENTS 08/24/20 16:20 Sodium Chloride (Saline Lock Flush) 10 ml PICC IV 08/24/20 18:00 08/27/20 17:35 Vancomycin HCl (First-Vancomycin 50(Firvanq)- 250mg/5ml) 125 mg Q6H PO 08/16/20 18:00 08/19/20 15:52 DC 08/19/20 12:01 Vancomycin HCl 500 mg/Dextrose 110 ml @ 110 mls/hr Q12H IV 08/14/20 14:00 08/15/20 14:13 DC 08/15/20 02:05 Vancomycin HCl 750 mg/IV Miscellaneous Supplies 1 each/ Sodium Chloride 275 ml @ 275 mls/hr Q12H IV 08/14/20 14:00 08/15/20 14:13 DC 08/15/20 03:19 Vancomycin HCl 750 mg/IV Miscellaneous Supplies 1 each/ Sodium Chloride 275 ml @ 275 mls/hr Q24H IV 08/16/20 16:00 08/23/20 23:59 DC 08/23/20 17:01 Vancomycin HCl 750 mg/IV Miscellaneous Supplies 1 each/ Sodium Chloride 275 ml @ 275 mls/hr Q24H IV 08/16/20 17:00 08/23/20 23:59 DC 08/23/20 18:54 Vancomycin HCl 1000 mg/IV Miscellaneous Supplies 1 each/ Sodium Chloride 270 ml @ 270 mls/hr Q12H IV 08/14/20 01:55 Cancel Vancomycin HCl 1000 mg/IV Miscellaneous Supplies 1 each/ Sodium Chloride 270 ml @ 270 mls/hr Q12H IV 08/15/20 14:00 08/16/20 15:28 DC 08/16/20 02:17 Allergies Coded Allergies: linezolid (Verified Allergy, Unknown, 04/23/19) Objective Physical Examination Examination GENERAL APPEARANCE:Patient seen, laying in bed, awake, alert, and oriented. Comfortable, in no acute distress. SKIN: Warm and moist. sacral wound. Minimal yellow necrosis on the periwound. No odor. Granulating tissue in the deep part. LUNGS: Clear to auscultation bilaterally. No wheezing appreciated. HEART: No chest wall abnormalities. Regular rate and rhythm with no murmurs appreciated. ABDOMEN: Abdomen is soft, non-tender, non-distended. EXTREMITIES: No edema identified. No calf tenderness. Vital Signs Vital Signs Date Time Temp Pulse Resp B/P (MAP) Pulse Ox O2 Delivery O2 Flow Rate FiO2 08/27/20 17:36 19 08/27/20 14:00 97.3 91 131/70 (90) 94 Room Air 08/24/20 13:15 2 08/24/20 12:43 100 I&Os I&O- Last 24 Hours up to 6 AM 08/27/20 06:00 Intake Total 1650 ml Output Total 1400 ml Balance 250 ml Laboratory Data Labs 24H Laboratory Tests 2 08/27/20 06:35: Nucleated Red Blood Cells % (auto) 0.0, Anion Gap 5L, Glomerular Filtration Rate > 60.0, Calcium Level 8.1L, C-Reactive Protein, Quantitative 17.40H CBC/BMP Laboratory Tests 08/27/20 06:35 Microbiology Microbiology 08/26/20 Blood Culture, Received Pending 08/26/20 Blood Culture - Preliminary, Resulted No growth after 24 hours . All specim... 08/24/20 Gram Stain - Final, Resulted 08/24/20 Wound Culture - Final, Resulted E.coli Esbl 08/24/20 Anaerobic Culture, Resulted Pending Impression Continue with antibiotics per ID. Wound vac changed. Continue with wound vac therapy. Wound is improving. Will follow Plan / VTE VTE Prophylaxis Ordered?: Yes CHRISTOPHER HERNANDEZ DO Aug 27, 2020 18:30
[2020-08-27] MEDS: ACETAMINOPHEN TAB 650MG DOSE (2X325MG) PO PRN (21:51)
[2020-08-27 22:00] VITALS: BP 132/71
[2020-08-28] VITALS (8 sets, daily range): BP systolic 134–145; BP diastolic 74–81
[2020-08-28] MEDS: SODIUM CHLORIDE 0.9% INJ 10 ML SYR IV SCH ×2 (06:17→20:15)
[2020-08-28 07:18] LABS: BASO % 0.3 % (0.0-1.0); EOS # 0.4 10^3/uL (0.0-0.5); EOS % 3.2 % (0.0-3.0); HEMATOCRIT 32.5 % (42.0-52.0); HEMOGLOBIN 10.4 g/dl (13.5-17.5); LYMPH # 0.8 10^3/uL (1.5-5.0); LYMPH % 6.1 % (24.0-44.0); MEAN CORPUSCULAR VOLUME 93.7 fl (80.0-96.0); MONO # 0.8 10^3/uL (0.0-0.8); MONO % 6.3 % (2.0-8.0); NEUTROPHILS # 11.1 10^3/uL (1.5-8.5); NEUTROPHILS % 83.6 % (36.0-66.0); PLATELET COUNT, AUTOMATED 470 10^3/uL (150-450); RED BLOOD COUNT 3.47 10^6/uL (4.30-6.10); WHITE BLOOD COUNT 13.3 10^3/uL (4.0-10.0)
--- NOTE | 2020-08-28 07:21 | IPN ---
PROGRESS NOTE DATE: 08/27/2020 SUBJECTIVE: The patient was seen this afternoon with Dr. Joiner in the room during his wound VAC change. The patient was complaining of some abdominal pain mostly across his mid abdomen. His appetite has been fair. He has a colostomy, which seems to be functioning well. The ostomy site is a little swollen and the abdomen is somewhat distended. In the colostomy bag, there is some brown stool. He has had a fever of 101.2 on 08/25, but no fever in the past 24 hours. OBJECTIVE: HEART: Normal S1, S2. No murmurs. LUNGS: Clear. ABDOMEN: Distended, slightly tender especially in the left lower quadrant. SKIN: Decubitus ulcer has been debrided by Dr. Joiner and looks clean without purulence. There is no surrounding laceration of the skin. No cellulitis around it. There is no purulent discharge. LABORATORY DATA: White count 14.3, hemoglobin 10.2, hematocrit 31.1, platelets 435,000. Sodium 141, potassium 3.9, chloride 107, bicarb 29, BUN 19, creatinine 0.45, glucose 84, calcium 8.1. CRP 17.4. Blood cultures have been drawn on 08/26, two sets are no growth after 24 hours. Intraoperative wound culture from 08/24 had an extended-spectrum beta-lactamase (ESBL) E. coli anaerobic culture is still pending. ESBL is sensitive to meropenem, nitrofurantoin, Zosyn. Fosfomycin susceptibilities pending. IMAGING DATA: X-ray nonspecific bowel gas pattern. Bilateral infrahilar lower lobe opacities. Atelectasis is suspected. IMPRESSION: 1. Sacral decubitus ulcer with colonization with extended-spectrum beta-lactamase (ESBL) Escherichia coli (E. coli). The wound does not look infected at this time, but there is a culture from the OR that showed the ESBL E. coli. Due to the fact that the wound is not infected, there is no purulence or surrounding cellulitis and there is no exposed bone, we have discussed the case with Dr. Joiner and she agrees on just continuing with wound VAC without antibiotics. 2. History of Clostridium difficile (C. difficile) colitis during this hospitalization and therefore, broad-spectrum antibiotic would not be recommended at this point as he will have recurrence of C. difficile, unless there is fever or other signs of infection. He is currently day #9 of p.o. fidaxomicin. 3. Heel decubitus ulcers bilaterally. They were not examined by myself today. Will continue monitoring them to make sure there is no infection. 4. Leukocytosis with abdominal pain status post colostomy to avoid fecal contamination of the sacral decubitus ulcer with increasing abdominal pain and negative x-ray. If his white count continues to increase tomorrow, I would suggest obtaining a CT abdomen and pelvis to make sure there is no intraabdominal infection. PLAN: Continue Dificid 200 mg p.o. b.i.d. Monitor CBC and CRP tomorrow. If they continue to worsen, please obtain abdominal CT and pelvis tomorrow. MTDD
[2020-08-28 07:45] LABS: ALBUMIN 2.2 GM/DL (3.2-5.2); ALT/SGPT 16 U/L (12-78); BILIRUBIN,TOTAL 0.3 MG/DL (0.2-1.0); BLOOD UREA NITROGEN 17 MG/DL (7-18); CALCIUM LEVEL 8.4 MG/DL (8.8-10.2); CARBON DIOXIDE LEVEL 30 MEQ/L (21-32); CHLORIDE LEVEL 108 MEQ/L (98-107); CREATININE FOR GFR 0.46 MG/DL (0.70-1.30); GLOMERULAR FILTRATION RATE > 60.0 (>42); GLUCOSE, FASTING 93 MG/DL (70-100); SODIUM LEVEL 142 MEQ/L (136-145); TOTAL PROTEIN 6.5 GM/DL (6.4-8.2)
[2020-08-28] MEDS: FIDAXOMICIN 200 MG TAB (DIFICID) PO SCH ×2 (09:36→22:42)
[2020-08-28] MEDS: PREGABALIN 75 MG CAP(LYRICA) PO SCH ×2 (09:36→22:42)
[2020-08-28] MEDS: ENOXAPARIN 40MG/0.4ML SYRINGE (J1650 PER 10MG) SC SCH (09:36)
[2020-08-28] MEDS: levETIRAcetam 250MG TABLET (KEPPRA) PO SCH ×2 (09:36→22:43)
[2020-08-28] MEDS: FUROSEMIDE 40 MG TAB PO SCH (09:37)
[2020-08-28] MEDS: PERCOCET 5MG/325MG TAB PO PRN (09:37)
[2020-08-28] MEDS: POTASSIUM CHLORIDE 10 MEQ SR TABLET PO SCH (09:37)
[2020-08-28] MEDS: NYSTATIN 100,000 UNITS/GM TOPICAL PWD 15 GM TOP SCH ×2 (09:38→22:43)
--- NOTE | 2020-08-28 10:44 | IPNPDOC ---
Text Note Date of Service The patient was seen on 08/28/20. 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 History of chronic urinary retention and incontinence of stool from resection of spinal cord tumor and previous back surgeries. POD4 Lap transverse colostomy placement as per Dr Jones. The patient states he is still having some pain around the ostomy site. He states this has been unchanged. Still feels bloated. Afebrile. VSS. General. Awake and alert, NAD. MMM Abd. soft, but still distended. There is some tenderness around the ostomy and ostomy continues to look swollen. [place] appearing. Incision sites are C/D/I. WBC 13.3, decreased slightly. Hemoglobin 10.4, stable. CRP 16.9 compared with 17.4 yesterday. A/P POD4 Lap transverse colostomy placement as per Dr Jones. Still with some distention and swelling around the ostomy site. This was reevaluated yesterday with AXR with images reviewed by Dr. Jones, no signs of obstruction. Swelling of the colostomy site may be causing a small amount of ob struction but was felt likely to improve over the next few days. 100ml stool yesterday. CT A/P requested this Am as per Hospitalist. Tolerating regular diet. Monitor. VS,Fishbone, I+O VS, Fishbone, I+O Laboratory Tests 08/28/20 06:55 Vital Signs Date Time Temp Pulse Resp B/P (MAP) Pulse Ox O2 Delivery O2 Flow Rate FiO2 08/28/20 09:37 18 08/28/20 09:20 97.5 90 135/74 (94) 96 Room Air 08/24/20 13:15 2 08/24/20 12:43 100 I&O- Last 24 Hours up to 6 AM 08/28/20 06:00 Intake Total 800 ml Output Total 1375 ml Balance -575 ml Attending Note Attending Note I was informed while I was in the operating room of a CT scan done on the patient today. I reviewed the results, there is some residual free air which is not too surprising. He does have some ileus or bowel obstruction pattern. Radiologist is calling possibility of pneumatosis on the dilated colon which I am not too sure that it is looking at the images. Nevertheless he has been having some abdominal pain and abnormal swelling of his transverse colostomy which seems to be improving gradually though still very swollen. I think it warrants to have a look and check for possibility of bowel injury that might explain his slow course/progress and if there is such will need bowel resection. Otherwise, ostomy may need to be revised. Nicole Lindsay Aug 28, 2020 10:44 COLEEN JONES MD Aug 28, 2020 16:55
[2020-08-28] MEDS: GASTROGRAFIN SOLUTION 30ML PO SCH ×2 (11:33→11:34)
--- NOTE | 2020-08-28 11:50 | IPN ---
PROGRESS NOTE DATE: 08/28/2020 SUBJECTIVE: According to nursing, patient had no fever or chills overnight. Patient complains of 7/10 pain across the abdomen today and continued output through the ostomy. No nausea or vomiting. PHYSICAL EXAMINATION: Vital signs: Temperature 97.5, pulse 90, respiratory rate 18, blood pressure 135/74, 96% on room air. Generally: Patient is awake, alert, oriented. Answering questions appropriately, no respiratory distress. Lungs are clear to auscultation. No wheezing or rhonchi. Heart: S1, S2, sinus rhythm. Abdomen: Distended, ostomy in the left lower quadrant, tender diffusely but worse in the left lower quadrant. Decubitus: Patient refused to be turned due to severe pain, could not be examined. Laboratory data reviewed. Microbiology and imaging studies reviewed. ASSESSMENT AND PLAN: This is a 75-year-old with sacral decubitus ulcer with extended spectrum beta-lactamase (ESBL) status post debridement by plastic surgery, status post ostomy, Clostridium (C) difficile colitis on day #10 of fidaxomicin, decubitus ulcers on the heels bilaterally, wheelchair bound due to spinal lumbar tumor, history of methicillin-resistant Staphylococcus aureus (MRSA), and chronic back pain, fell out of his chair and had slurred speech, MRI had no acute CVA, was noted to have a stage IV sacral ulcer and multiple foot ulcers, status post debridement on 08/24/2020, wound vacuum assisted closure (VAC) currently, and status post diverting colostomy. IMPRESSION: 1. Fall at home, mechanical, with slurred speech. Post-fall MRI showed no acute bleeding. Back to baseline mentation currently. 2. Stage IV sacral decubitus status post diverting colostomy. Previously on broad-spectrum antibiotics. Developed Clostridium (C) difficile colitis. Patient is status post debridement on 08/24/2020, now with wound vacuum assisted closure (VAC). Plastic surgery, Dr. Joiner, managing. 3. Clostridium (C) difficile colitis. Polymerase chain reaction (PCR) positive on 08/16/2020. On Dificid for full 10 days. Infectious diseases (ID) following. Repeat CT abdomen and pelvis due to persistent abdominal pain. 4. Bilateral heel ulcers. Outpatient followup. Currently with heel float boat. 5. Enterococcus urinary tract infection (UTI) status post vancomycin. 6. Seizure disorder, on home medications. MTDD
--- NOTE | 2020-08-28 14:41 | REP ---
INDICATION: cdiff s/p diverting colostomy [id number] decub. abd pain. COMPARISON: Noncontrast CT 04/03/2020, abdominal series 08/27/2020 TECHNIQUE: CT abdomen and pelvis after oral Gastrografin mixture 10 mL in 290 mL flavum water for 2 doses per our protocol. Technologist notes patient was unable to finish the drink. Coronal and sagittal reconstructions provided. FINDINGS: CT abdomen: Bibasilar atelectatic change increased from the previous study small right effusion difficult to exclude. Heart not grossly enlarged. Trace pericardial fluid noted. No definite hiatal hernia. There is no hepatosplenomegaly with spray artifact from patient's arms being at his side limiting evaluation liver but no gross mass or abnormality within the liver. No splenomegaly. Pancreas without calcified stone or mass. Trace amount of fluid anterior to the right lobe of the liver extending to its inferior margin. Gallbladder without calcified stones. Noncalcified stones cannot be excluded. On lung window review of the abdomen and pelvis there are trace areas of the free air abutting the deep abdominal fascia and some suspected pneumatosis in some of the small bowel loops. There is ileus with the fluid-filled bowel loops in the upper abdomen. Some oral contrast in the stomach and also distal of distally and the rectosigmoid and left colon. There is edema and infiltration of the upper abdominal mesentery. Dilatation of the bowel loops in the right abdomen leading to the diverting colostomy is noted. There is a small of amount of omental fat into umbilical hernia medial to the diverting colostomy but this is as seen on the previous CT. Mesentery is infiltrated the infraumbilical region. Adrenal glands are unchanged without acute finding. The left kidney shows upper pole interpolar cyst, unchanged. Vena cava filter noted below the right renal vein as before. There is no hydronephrosis, stone or definite solid mass in either kidney. The aorta is without aneurysm. There is a levorotatory scoliosis of the thoracolumbar junction. There has been prior of laminectomy at the lower thoracic and upper lumbar region with a pseudomeningocele configuration unchanged from the previous study. There is a tubing coiled within this pseudomeningocele as before. Tubing extends into the thecal space at about L2. Pancreas grossly intact. Few scattered small nonpathologic sized the mesenteric nodes. Bone windows show degenerative disc changes lower thoracic spine with vacuum phenomenon and degenerative changes in the lumbar spine and facets. There are postoperative changes and laminectomies in the lower lumbar spine with fusion of the posterior elements. CT pelvis: Sacrum and SI joints unchanged. There is vacuum phenomenon in both SI joints. Iliac wings some chronic changes on the left, stable as well as the left iliac bone laterally showing of lucency and cortical defect, a stable chronic change. This may be related to prior infection or trauma. Patient has had ORIF of the proximal right femoral shaft extending to the lower aspect of the trochanter. This is unchanged degenerative changes of both hips with narrowing of the hip joint space is seen. No acute pelvic fracture. There is evidence of a decubitus ulcer overlying the lower sacrum to mid sacrum as a new finding. No pelvic adenopathy a pathologic sized. Trace of free fluid the pelvis. Stool and contrast chronically in the rectosigmoid with some thickening of the wall of this sigmoid and rectum. No inguinal hernia or pathologic sized adenopathy. Bladder is empty with the Rowley catheter balloon seen inflated within. IMPRESSION: 1. Evidence for free air and abdominal perforation. Source of perforation is uncertain but there bubbles are seen along the deep fascia of the anterior abdominal wall scattered in the upper abdomen. Bowel loops with ileus seen in that upper abdomen. Also suspect some pneumatosis in some bowel loops in the upper abdomen. These loops are proximal to the diverting colostomy in the upper abdomen to the left of the umbilicus. Small umbilical hernia seen unchanged. The dilated loops are fluid-filled with some pneumatosis evident and infiltration of the mesentery throughout the upper abdomen. Surgical consult needed for perforation. 2. 3. Small amount of ascites anterior to the liver extending in the peritoneal gutters and some in the pelvis as well. 4. Status post lower thoracic laminectomies with pseudomeningocele and coil drain in the meningocele into the thecal sac, all stable 5. Prior lumbar laminectomies and fusion. Chronic changes left iliac bone, stable. 6. Decubitus ulcer overlying the mid to lower sacrum. 7. Vena cava filter noted as before. Rowley catheter balloon now seen in the bladder. Renal cyst on the left. <Electronically signed by Ibrahima Gar > 08/28/20 [id number]
--- NOTE | 2020-08-28 14:44 | IPNPDOC ---
Date Seen The patient was seen on 08/28/20. Progress Note addendum to progress note: per radiologist Dr. Chew: CT abd/pelvis: air bubbles, pneumatosis, scattered free air. plan: left message with [employer] for surgeon to review the CT and re-examine the patient to determine if there is a perforated viscus. keep pt npo for now and hold anticoagulants. check lactic acid, monitor for worsening abdominal distension, transfer to monitored floor if mean arterial pressure<65. VS, I&O, 24H, [facility] Vital Signs/I&O Vital Signs Date Time Temp Pulse Resp B/P (MAP) Pulse Ox O2 Delivery O2 Flow Rate FiO2 08/28/20 14:03 94 18 134/75 (94) 96 Room Air 08/28/20 10:50 97.5 08/24/20 13:15 2 08/24/20 12:43 100 I&O- Last 24 Hours up to 6 AM 08/28/20 06:00 Intake Total 800 ml Output Total 1375 ml Balance -575 ml Laboratory Data 24H LABS Laboratory Tests 2 08/28/20 06:55: Immature Granulocyte % (Auto) 0.5, Neutrophils (%) (Auto) 83.6H, Lymphocytes (%) (Auto) 6.1L, Monocytes (%) (Auto) 6.3, Eosinophils (%) (Auto) 3.2H, Basophils (%) (Auto) 0.3, Neutrophils # (Auto) 11.1H, Lymphocytes # (Auto) 0.8L, Monocytes # (Auto) 0.8, Eosinophils # (Auto) 0.4, Basophils # (Auto) 0.0, Nucleated Red Blood Cells % (auto) 0.0, Anion Gap 4L, Glomerular Filtration Rate > 60.0, Calcium Level 8.4L, Total Bilirubin 0.3, Aspartate Amino Transf (AST/SGOT) 8, Alanine Aminotransferase (ALT/SGPT) 16, Alkaline Phosphatase 92, C-Reactive Protein, Quantitative 16.90H, Total Protein 6.5, Albumin 2.2L, Albumin/Globulin Ratio 0.5 CBC/BMP Laboratory Tests 08/28/20 06:55 Microbiology Microbiology 08/26/20 Blood Culture - Preliminary, Resulted No Growth after 48 hours. All Specime... 08/26/20 Blood Culture - Preliminary, Resulted No Growth after 48 hours. All Specime... 08/24/20 Gram Stain - Final, Resulted 08/24/20 Wound Culture - Final, Resulted E.coli Esbl 08/24/20 Anaerobic Culture, Resulted Pending TONO AGGARWAL MD Aug 28, 2020 14:44
[2020-08-28] MEDS ORDERED: GLUCOSE 4GM CHEW TABLET PO PRN (15:00)
[2020-08-28] MEDS ORDERED: DEXTROSE 50% 50 ML SYRINGE IV PRN (15:00)
[2020-08-28] MEDS ORDERED: GLUCAGON INJ 1MG VIAL SC PRN (15:00)
[2020-08-28] MEDS ORDERED: propofoL 200 MG/20 ML VIAL As Ordered ONE (15:46)
[2020-08-28] MEDS ORDERED: ROCURONIUM BROMIDE 50 MG/5 ML VIAL As Ordered ONE (15:46)
[2020-08-28] MEDS ORDERED: LIDOCAINE 2% 100MG/5ML SDV (FOR ANES.) As Ordered ONE (15:46)
[2020-08-28] MEDS ORDERED: ONDANSETRON 4MG/2ML VIAL As Ordered ONE (15:47)
[2020-08-28] MEDS ORDERED: dexameTHASONE 4 MG/ML 1ML VIAL (J1100 PER 1MG) As Ordered ONE (15:47)
[2020-08-28] MEDS ORDERED: fentaNYL 100 MCG/2 ML INJECTION (J3010) As Ordered ONE ×2 (15:47→18:05)
[2020-08-28] MEDS ORDERED: MIDAZOLAM INJ 2MG/2ML VIAL (J2250 PER 1MG) As Ordered ONE (15:47)
[2020-08-28] MEDS ORDERED: LIDOCAINE 1% SDV 30ML VIAL As Ordered ONE (15:56)
[2020-08-28] MEDS ORDERED: BUPIVACAINE HCL 0.25% 30ML VIAL As Ordered ONE (15:57)
[2020-08-28] MEDS ORDERED: SUCCINYLCHOLINE 100 MG/5 ML SYRINGE (J0330) As Ordered ONE (17:43)
[2020-08-28] MEDS ORDERED: ePHEDrine SULFATE 25 MG/5 ML(5MG/ML) SYRINGE As Ordered ONE (17:44)
[2020-08-28] MEDS ORDERED: UNASYN 3 GM VIAL As Ordered ONE (18:00)
[2020-08-28] MEDS ORDERED: HYDROmorphone HCL 2 MG/ML 1ML VIAL (J1170) As Ordered ONE (18:21)
[2020-08-28] MEDS ORDERED: ACETAMINOPHEN 1000MG 100ML IV BTL (OFIRMEV) (J0131 PER 10MG) As Ordered ONE (18:39)
[2020-08-28] MEDS ORDERED: SUGAMMADEX SODIUM 500 MG/5 ML VIAL (BRIDION) As Ordered ONE (18:41)
--- NOTE | 2020-08-28 19:27 | ROOPDOC ---
[facility] Report Of Operation Report of Operation DATE OF PROCEDURE: 08/28/20 PREPROCEDURE DIAGNOSES: ?bowel obstruction, pneumatosis coli, free air . POSTPROCEDURE DIAGNOSES: postop ileus, residual free air, no perforation, no bowel ischemia. PROCEDURE: Diagnostic Laparoscopy. SURGEON: Brady Smith MD FIELD EDUCATION DIRECTOR: ANESTHESIA: General Endoctracheal Anesthesia. ESTIMATED BLOOD LOSS: Approximately 10 mL. COMPLICATIONS: none. REMARKS: 75 M who 4 days ago i did Laproscopic transverse colostomy for fecal incontinence, sacral wound. For the past few days complaining of abdominal pain, today has been throwing up. CT done earlier today was read as having possible pnematosis coli, free air, small amount of fluid on top of liver. With these findings, I have decided to bring him back to OR for diagnostic laparoscopy PROCEDURE NOTE: loop of small bowel adhered next to colostomy, inflamed omentum adhered around colostomy to abdominal wall also causing and internal hernia for loops of small bowel though not causing obstruction at the moment. Patient with left lower quadrant/flank hernia containing loops of small bowel and colon that is non incarcerated but chronically adhered to the sac/wall. Small amount of hemoperitoneum from prior surgery on top of liver. No bowel injury, no ischemic appearing small bowel or colon. No definite points of obstruction DESCRIPTION OF PROCEDURE: Patient is on scheduled meropenem doses. There was a concern for possible intra- abdominal injury. Thus I brought him to the operating room. Was placed supine on the procedure table. Compression boots placed on bilateral lower extremities were DVT prophylaxis. Gen. endotracheal anesthesia started. He already has a long-standing indwelling chronic Rowley catheter. He has a left upper quadrant colostomy which is moderately swollen but otherwise does not appear ischemic. I removed the colostomy appliance placed a 20 [place] Rowley catheter into the colostomy for intra-abdominal identification and I placed a large Tegaderm drape on top of the colostomy. The whole abdomen including the Rowley catheter was prepped and draped in the usual sterile fashion.We paused for a surgical timeout using both pre-incision safety checklist to verify correct patient, procedure site and additional clinical information prior to beginning the procedure I entered the abdomen through the prior 5 mm port site incision over the right upper quadrant area. A Veress needle was inserted. CO2 insufflation and started to pressure 15 mg of mercury. Using the same incision a 5 mm port was placed under direct vision of the laparoscope. Insertion site was inspected for injury and none was found. He was placed in slight Trendelenburg position tilted towards the right side for an adequate view of the left upper quadrant area. A 5 mm right lower quadrant port and 5 mm infraumbilical port slightly towards the right side was placed. With this port sites I began to systematically evaluate the abdomen. There is a small amount of old blood on top of the liver which was visualized on the CT scan. This was aspirated and sent for cultures. There were no evident bilious or enteric material inside of the abdomen. There were a few loops of bowel that was adhered to the colostomy. This was lysed and mostly bluntly dissected off the colostomy. The mesentery of the colostomy is slightly edema this but otherwise appears healthy. We switching between my 3 ports, a looked at the bowels over the left upper quadrant area beyond the colostomy. They're all loose, there is no signs of any bowel injury over this area. The stomach likewise also appears healthy. The left over portion of the transverse colon, splenic flexure and descending colon appears distended but otherwise no apparent injuries found. I tried to look within the left flank hernia. There were multiple loops of small bowel that was adhered into the sac likewise part of the sigmoid colon but this were not dilated and does not look to be obstructed. There were no free fluid in the pelvis to suggest any injury at this area was never at this area during the previous surgery. At this point I'm sure that there were no intra-abdominal injuries from the previous surgery. The abdomen was deflated. All ports were removed. The incisions were closed with 4-0 Monocryl in subcuticular fashion. Dermabond was placed on top of the incision. The colostomy appliance was replaced. Patient was then promptly awakened, extubated and brought to recovery room in stable condition. BRADY SMITH MD Aug 28, 2020 19:27
[2020-08-28] MEDS: D5W/0.45% SODIUM CHLORIDE 1,000 ML IV SCH (20:00)
[2020-08-28] MEDS ORDERED: LR 1,000 ML IV SCH (20:00)
[2020-08-28] MEDS ORDERED: fentaNYL 100 MCG/2 ML INJECTION (J3010) IV PRN (20:00)
[2020-08-28] MEDS ORDERED: ONDANSETRON 4MG/2ML VIAL IV PRN (20:00)
[2020-08-28] MEDS ORDERED: METOCLOPRAMIDE INJ 10MG/2ML VIAL (J2765 PER 1) IV PRN (20:00)
[2020-08-29] VITALS: BP 131/76
[2020-08-29] MEDS: D5W/0.45% SODIUM CHLORIDE 1,000 ML IV SCH ×2 (02:50→15:45)
[2020-08-29] MEDS: SODIUM CHLORIDE 0.9% INJ 10 ML SYR IV SCH ×2 (05:45→18:00)
[2020-08-29 06:00] VITALS: BP 142/78
[2020-08-29 08:42] LABS: BASO % 0.1 % (0.0-1.0); HEMATOCRIT 37.8 % (42.0-52.0); HEMOGLOBIN 12.1 g/dl (13.5-17.5); LYMPH # 0.7 10^3/uL (1.5-5.0); LYMPH % 4.8 % (24.0-44.0); MEAN CORPUSCULAR HEMOGLOBIN 30.2 pg (27.0-33.0); MEAN CORPUSCULAR VOLUME 94.3 fl (80.0-96.0); MONO # 0.7 10^3/uL (0.0-0.8); NEUTROPHILS % 88.9 % (36.0-66.0); PLATELET COUNT, AUTOMATED 497 10^3/uL (150-450); RED BLOOD COUNT 4.01 10^6/uL (4.30-6.10); WHITE BLOOD COUNT 14.7 10^3/uL (4.0-10.0)
[2020-08-29] MEDS: POTASSIUM CHLORIDE 10 MEQ SR TABLET PO SCH (09:00)
[2020-08-29] MEDS ORDERED: CETACAINE SPRAY 5GM TOP ONE (09:00)
[2020-08-29] MEDS: PREGABALIN 75 MG CAP(LYRICA) PO SCH ×2 (09:00→22:17)
[2020-08-29] MEDS: FUROSEMIDE 40 MG TAB PO SCH (09:00)
[2020-08-29] MEDS: FIDAXOMICIN 200 MG TAB (DIFICID) PO SCH (09:00)
[2020-08-29] MEDS: levETIRAcetam 250MG TABLET (KEPPRA) PO SCH ×2 (09:00→22:16)
--- NOTE | 2020-08-29 09:07 | REP ---
INDICATION: Nausea/Vomiting, post op ex lap. COMPARISON: CT 08/28/2020, radiographs 08/27/2020. TECHNIQUE: Two views abdomen and pelvis. FINDINGS: The stomach is moderately distended with air. There are multiple moderately dilated small bowel loops present. IVC filter is noted. Metallic clips project over the left lower quadrant. There are degenerative changes of the spine. IMPRESSION: Moderately distended multiple small bowel loops in a similar pattern when compared to prior CT 08/28/2020. Increased distention of the stomach. <Electronically signed by Ezequiel Soriano > 08/29/20 [id number]
[2020-08-29 09:09] LABS: BLOOD UREA NITROGEN 22 MG/DL (7-18); CALCIUM LEVEL 8.7 MG/DL (8.8-10.2); CARBON DIOXIDE LEVEL 32 MEQ/L (21-32); CHLORIDE LEVEL 105 MEQ/L (98-107); CREATININE FOR GFR 0.68 MG/DL (0.70-1.30); GLOMERULAR FILTRATION RATE > 60.0 (>42); GLUCOSE, FASTING 140 MG/DL (70-100); MAGNESIUM LEVEL 2.3 MG/DL (1.8-2.4); POTASSIUM SERUM 4.7 MEQ/L (3.5-5.1); SODIUM LEVEL 141 MEQ/L (136-145)
[2020-08-29 10:00] VITALS: BP 144/82
--- NOTE | 2020-08-29 12:07 | IPNPDOC ---
Text Note Date of Service The patient was seen on 08/29/20. 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 History of chronic urinary retention and incontinence of stool from resection of spinal cord tumor and previous back surgeries. POD5 Lap transverse colostomy placement as per Dr Smith. POD1 diagnostic laparoscopy as per Dr Smith. The patient states he vomited this morning and his NG tube came out. He had declined to have it replaced with nursing but is more agreeable if we are able to use some topical numbing medication to help. Afebrile. Heart rate 86, respiratory rate 20, blood pressure 144/82, 94% 2 L nasal cannula General. Awake and alert, NAD. Abd. still with distention. There is some tenderness around the ostomy and ostomy continues to look swollen. [place] appearing. Incision sites are C/D/I. WBC 14.7 Hemoglobin 12.1, stable. A/P POD5 Lap transverse colostomy placement as per Dr Smith. POD 1 diagnostic laparoscopy as per Dr. Smith. Noted to have postop ileus, residual free air, no perforation, no bowel ischemia. Patient had emesis this morning and NG tube came out. Plan to reattempt NG tube placement. Still with abd distention and swelling around the ostomy site. This appears overall unchanged. 100ml stool yesterday. IVF 75cc/hr. AXR requested this AM as per Dr Smith. Monitor. VS,Royerbone, I+O VS, Fishbone, I+O Laboratory Tests 08/29/20 08:26 Vital Signs Date Time Temp Pulse Resp B/P (MAP) Pulse Ox O2 Delivery O2 Flow Rate FiO2 08/29/20 10:00 97.8 86 20 144/82 (102) 94 Nasal Cannula 2.0 08/24/20 12:43 100 I&O- Last 24 Hours up to 6 AM 08/29/20 06:00 Intake Total 1000 ml Output Total 350 ml Balance 650 ml Nicole Lindsay Aug 29, 2020 12:07
--- NOTE | 2020-08-29 12:43 | IPN ---
PROGRESS NOTE DATE: 08/29/2020 SUBJECTIVE: Patient complains of persistent nausea and vomiting this morning, increasing abdominal distention. Patient was sent to the operating room emergently yesterday due to repeat CT abdomen and pelvis showing free air and possible abdominal perforation. Patient underwent exploratory laparoscopy with no obvious areas of perforation or perforated viscus. Overnight he continued to complain of increasing abdominal distention, nausea and vomiting this morning. A nasogastric tube was placed, but had been displaced. Patient now refuses to have the chest tube replaced. Patient has had no fever or chills and is currently maintaining his blood pressure without vasopressors. OBJECTIVE: Vital signs: Temperature 97.8, pulse 86, respiratory rate 20, bp 144/82, 94% on 2 liters nasal cannula. General: Patient appears uncomfortable. No respiratory distress, no diaphoresis, tracheal deviation or use of respiratory accessory muscles. Neck: No JVD, no thyromegaly. Lungs: Diminished without wheezing or rales. Heart: S1 and S2, sinus rhythm. Abdomen: Distended with decreased bowel sounds, tympanitic, no fluid wave left sided colostomy noted. Extremities: No cyanosis, clubbing or pitting edema. Wound-VAC to the sacrum. LABORATORY DATA: White count 14, hemoglobin 12, hematocrit 37, platelet count 497. Sodium 141, potassium 4.7, chloride 105, bicarb 32, BUN 22, creatinine 0.68, glucose 140. C-reactive protein 17.3. Microbiology: ESBL, E. coli, bacteroides fragilis on 08/25 buttock culture. 08/14/2020: E faecalis. Urine culture and blood culture 08/26/2020: No growth after 72 hours. IMAGING STUDIES: 08/28/2020 CT abdomen and pelvis: Free air, abdominal perforation; source of perforation is uncertain, but bubbles are seen along the deep fascia of the anterior abdominal wall scattered in the upper abdomen, bowel loops with ileus seen in the upper abdomen, suspect pneumatosis in some bowel loops in the upper abdomen proximal to the diverting colostomy in the upper abdomen to the left of the umbilicus, small umbilical hernia seen is unchanged, dilated loops are fluid filled and some pneumatosis evident and infiltration of the mesentery throughout the upper abdomen, small amounts of ascites anterior to the liver extending into the peritoneal gutters, status post lower thoracic laminectomy with pneumo meningocele and drain of the meningocele, prior lumbar laminectomies, decubitus ulcer overlying the mid to lower sacrum, vena cava filter noted, Rowley catheter balloon in the bladder, renal cyst on the left. ASSESSMENT AND PLAN: This is a 75-year-old male with sacral decubitus ulcer stage 4 found to have ESBL, E. faecalis UTI, developed C. difficile after being on antibiotics, underwent debridement by plastic surgery and diverting colostomy by general surgery due to a contamination of the sacral decubitus with stool. Patient is wheelchair bound due to a spinal lumbar tumor with history of MRSA and chronic back pain, fell out of a chair with slurred speech, evaluated by MRI with no acute CVA, was then found on admission to have a stage 4 sacral ulcer, multiple foot ulcers and debrided on 08/24/2020, currently managed by plastic surgery, general surgery, infectious disease specialist. During his hospital stay he developed C. difficile colitis with increasing abdominal distention with repeat CT abdomen and pelvis showing free air. He then underwent an exploratory laparoscopy yesterday by general surgery with no signs of abdominal perforation. Patient this morning had increased abdominal distention with air fluid levels, failed NG-tube placement now patient refuses reinsertion of the nasogastric tube. IMPRESSIONS/PLANS: 1. Fall at home, mechanical, with complaints of slurred speech: Post MRI showed no acute CVA or bleed, had been back on baseline mentation. 2. Stage 4 sacral decubitus status post diverting colostomy: Previously on broad spectrum antibiotics. Developed C. difficile colitis status post debridement of the sacral wound on 08/24/2020 now with plastic surgery managing. 3. C. difficile colitis, positive PCR on 08/16/2020: On Dificid for a full 10 days, ID following. 4. Free air in the abdomen with negative source of perforated viscus on exploratory laparoscopy on 08/28/2020: Dr. Smith general surgery consulted for management. Now with abdominal distention, nasogastric tube fail this morning and patient refuses to place another. 5. Enterococcus UTI: Status post vancomycin. Patient is on contact isolation for ESBL and a sacral decubitus. 6. Seizure disorder: On home medication. MTDD
[2020-08-29] MEDS: NYSTATIN 100,000 UNITS/GM TOPICAL PWD 15 GM TOP SCH ×2 (13:54→22:17)
[2020-08-29 14:00] VITALS: BP 143/81
[2020-08-29 22:00] VITALS: BP 125/71
[2020-08-30 06:00] VITALS: BP 128/71
[2020-08-30] MEDS: SODIUM CHLORIDE 0.9% INJ 10 ML SYR IV SCH ×2 (06:00→17:01)
[2020-08-30] MEDS: D5W/0.45% SODIUM CHLORIDE 1,000 ML IV SCH ×2 (06:22→15:06)
[2020-08-30 06:48] LABS: BASO # 0.1 10^3/uL (0.0-0.2); BASO % 0.4 % (0.0-1.0); EOS # 0.3 10^3/uL (0.0-0.5); EOS % 2.8 % (0.0-3.0); HEMOGLOBIN 10.4 g/dl (13.5-17.5); LYMPH # 1.1 10^3/uL (1.5-5.0); LYMPH % 9.3 % (24.0-44.0); MEAN CORPUSCULAR HEMOGLOBIN 29.5 pg (27.0-33.0); MEAN CORPUSCULAR HGB CONC 31.5 g/dl (32.0-36.5); MEAN CORPUSCULAR VOLUME 93.8 fl (80.0-96.0); MONO # 0.7 10^3/uL (0.0-0.8); MONO % 6.1 % (2.0-8.0); NEUTROPHILS # 9.2 10^3/uL (1.5-8.5); PLATELET COUNT, AUTOMATED 465 10^3/uL (150-450); RED BLOOD COUNT 3.52 10^6/uL (4.30-6.10); WHITE BLOOD COUNT 11.4 10^3/uL (4.0-10.0)
[2020-08-30 07:14] LABS: BLOOD UREA NITROGEN 23 MG/DL (7-18); CALCIUM LEVEL 8.6 MG/DL (8.8-10.2); CARBON DIOXIDE LEVEL 33 MEQ/L (21-32); CHLORIDE LEVEL 106 MEQ/L (98-107); CREATININE FOR GFR 0.57 MG/DL (0.70-1.30); GLOMERULAR FILTRATION RATE > 60.0 (>42); GLUCOSE, FASTING 113 MG/DL (70-100); MAGNESIUM LEVEL 2.2 MG/DL (1.8-2.4); POTASSIUM SERUM 3.7 MEQ/L (3.5-5.1); SODIUM LEVEL 142 MEQ/L (136-145)
[2020-08-30] MEDS: levETIRAcetam 250MG TABLET (KEPPRA) PO SCH ×3 (09:00→20:32)
[2020-08-30] MEDS: FUROSEMIDE 40 MG TAB PO SCH ×2 (09:00→09:24)
[2020-08-30] MEDS: PREGABALIN 75 MG CAP(LYRICA) PO SCH ×2 (09:25→20:32)
[2020-08-30] MEDS: POTASSIUM CHLORIDE 10 MEQ SR TABLET PO SCH (09:25)
--- NOTE | 2020-08-30 09:41 | IPNPDOC ---
Text Note Date of Service The patient was seen on 08/30/20. 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 History of chronic urinary retention and incontinence of stool from resection of spinal cord tumor and previous back surgeries. POD6 Lap transverse colostomy placement as per Dr Smith. POD2 diagnostic laparoscopy as per Dr Smith. NGT was re placed yesterday, drainage yellow this AM, 1300ml drainage yesterday. has not had air in bag, no stool yet. Afebrile. Heart rate 88, respiratory rate 18, blood pressure 128/71, 96% RA General. Awake and alert, NAD. Abd. still with less distention today. There is some tenderness around the ostomy, the ostomy continues looks less swollen today. [place] appearing. Incision sites are C/D/I. light brown fluid in ostomy bag. WBC 11.4,decreased Hemoglobin 10.4, stable. A/P POD6 Lap transverse colostomy placement as per Dr Smith. POD2 diagnostic laparoscopy as per Dr. Smith. Noted to have postop ileus, residual free air, no perforation, no bowel ischemia. The patient is reviewed and examined as per Dr. Smith this morning. NGT in place. Okay to have ice chips and sips as per Dr. Smith. Abd distention and swelling around the ostomy site appears improved today. 200ml ostomy output yesterday. IVF 75cc/hr. Monitor. VS,Royerbone, I+O VS, Fishbone, I+O Laboratory Tests 08/30/20 06:16 Vital Signs Date Time Temp Pulse Resp B/P (MAP) Pulse Ox O2 Delivery O2 Flow Rate FiO2 08/30/20 08:20 2.0 08/30/20 06:00 97.8 88 18 128/71 (90) 96 Room Air 08/24/20 12:43 100 I&O- Last 24 Hours up to 6 AM 08/30/20 05:59 Intake Total 0 ml Output Total 2550 ml Balance -2550 ml Nicole Lindsay Aug 30, 2020 09:40
--- NOTE | 2020-08-30 09:50 | IPNPDOC ---
Date Seen The patient was seen on 08/30/20. Progress Note pls have self contained behavior unit teacher call [employer] at [phone] Good's progress note. job #[id number] VS, I&O, 24H, Fishbone Vital Signs/I&O Vital Signs Date Time Temp Pulse Resp B/P (MAP) Pulse Ox O2 Delivery O2 Flow Rate FiO2 08/30/20 08:20 2.0 08/30/20 06:00 97.8 88 18 128/71 (90) 96 Room Air 08/24/20 12:43 100 I&O- Last 24 Hours up to 6 AM 08/30/20 05:59 Intake Total 0 ml Output Total 2550 ml Balance -2550 ml Laboratory Data 24H LABS Laboratory Tests 2 08/29/20 17:06: Bedside Glucose (Misc Panel) 92 08/30/20 06:16: Immature Granulocyte % (Auto) 0.4, Neutrophils (%) (Auto) 81.0H, Lymphocytes (%) (Auto) 9.3L, Monocytes (%) (Auto) 6.1, Eosinophils (%) (Auto) 2.8, Basophils (%) (Auto) 0.4, Neutrophils # (Auto) 9.2H, Lymphocytes # (Auto) 1.1L, Monocytes # (Auto) 0.7, Eosinophils # (Auto) 0.3, Basophils # (Auto) 0.1, Nucleated Red Blood Cells % (auto) 0.0, Anion Gap 3L, Glomerular Filtration Rate > 60.0, Calcium Level 8.6L, Magnesium Level 2.2 CBC/BMP Laboratory Tests 08/30/20 06:16 Microbiology Microbiology 08/26/20 Blood Culture - Preliminary, Resulted No Growth after 72 hours. All specime... 08/26/20 Blood Culture - Preliminary, Resulted No Growth after 72 hours. All specime... 08/24/20 Gram Stain - Final, Complete 08/24/20 Wound Culture - Final, Complete E.coli Esbl 08/24/20 Anaerobic Culture - Final, Complete Bacteroides Fragilis TONO GOOD MD Aug 30, 2020 09:50
[2020-08-30] MEDS: NYSTATIN 100,000 UNITS/GM TOPICAL PWD 15 GM TOP SCH ×2 (09:53→20:33)
--- NOTE | 2020-08-30 10:39 | IPN ---
PROGRESS NOTE DATE: 08/30/2020 SUBJECTIVE: Patient had increasing abdominal distention yesterday requiring a nasogastric tube placement. Abdominal distention is much improved today. Patient denies any worsening loose bowel movements. Completed fidaxomicin. Still nothing by mouth with decreasing white count. Previous exploratory laparoscopy was negative to determine if there is a perforated viscus due to free air noted on repeat CT abdomen and pelvis. Wound vacuum assisted closure (VAC) for the stage IV decubitus. This morning, no nausea or vomiting. Patient just says, "I don't feel well." He was taking a nap with nasogastric tube to low intermittent suction. Output through the nasogastric (NG) tube was 1.3 liters yesterday, 125 mL from early this morning at midnight. Urine output was documented as 600 mL yesterday and 150 mL since midnight today. PHYSICAL EXAMINATION: Temperature 97.8, pulse 88, respiratory rate 18, blood pressure is 128/71, 96% on room air. Generally: Patient is in no respiratory distress or use of respiratory accessory muscles. Anicteric, no jaundice. No jugular venous distension (JVD) or thyromegaly. No cervical lymphadenopathy. Dry mucous membranes. Air entry is equal bilaterally, clear to auscultation. Heart: S1, S2, sinus rhythm. Abdomen is distended. Left-sided colostomy. Wound VAC noted in the sacrum. Extremities: No cyanosis or clubbing. LABORATORY DATA: White count 11, hemoglobin 10, hematocrit 33, platelet count 465, sodium 142, potassium 3.7, chloride 106, bicarbonate 33, BUN 23, creatinine 0.57. ASSESSMENT AND PLAN: This is a 75-year-old male with history of stage IV sacral decubitus status post diverting colostomy due to stool contamination of the decubitus, had extended spectrum beta-lactamase (ESBL) Escherichia (E) coli on wound culture, status post IV antibiotics with subsequent Clostridium (C) difficile colitis, given fidaxomicin for 10 days by infectious disease. Patient has since developed worsening abdominal pain and free air noted on repeat CT abdomen and pelvis, was brought to the operating room for exploratory laparoscopy with no signs of perforated viscus. Patient has since had abdominal distention with nasogastric tube placed yesterday. CURRENT ISSUES: Are: 1. Free air in the abdomen with negative source for perforated viscus on exploratory laparoscopy 08/28/2020. Now with persistent abdominal distention requiring nasogastric tube to low intermittent suction and IV fluids to prevent hypoglycemia. Patient remains hypoglycemic despite the IV fluids for the past 48 hours. Defer to surgery for any other surgical intervention. 2. Enterococcus urinary tract infection (UTI) status post vancomycin. 3. Extended spectrum beta-lactamase (ESBL) on sacral decubitus stage IV status post diverting colostomy. Managed by plastic surgery. Currently with a wound vacuum assisted closure (VAC). 4. Clostridium (C) difficile colitis. Positive polymerase chain reaction (PCR) 08/16/2020 status post Dificid for 10 days. Infectious disease (ID) consulted. 5. Recent fall at home which was mechanical. Was found to have slurred speech, but MRI of the brain was negative for acute CVA. Patient will need senior living placement due to significant debility. 6. History of seizure disorder. Resumed on home medications. MTDD
[2020-08-30 15:51] VITALS: BP 128/70
[2020-08-30] MEDS: ERTAPENEM SODIUM 1 GM in NS MINI-BAG PLUS 50 ML IV SCH (16:49)
[2020-08-30] MEDS: MORPHINE 2 MG/ML 1ML VIAL (J2270) IV PRN (20:33)
[2020-08-30 22:00] VITALS: BP 120/68
[2020-08-31] MEDS: SODIUM CHLORIDE 0.9% INJ 10 ML SYR IV SCH ×2 (04:34→17:11)
[2020-08-31 06:41] LABS: BASO % 0.3 % (0.0-1.0); EOS # 0.3 10^3/uL (0.0-0.5); EOS % 2.8 % (0.0-3.0); HEMATOCRIT 32.7 % (42.0-52.0); HEMOGLOBIN 10.3 g/dl (13.5-17.5); LYMPH # 1.2 10^3/uL (1.5-5.0); MEAN CORPUSCULAR HEMOGLOBIN 29.3 pg (27.0-33.0); MEAN CORPUSCULAR HGB CONC 31.5 g/dl (32.0-36.5); MEAN CORPUSCULAR VOLUME 92.9 fl (80.0-96.0); MONO # 0.7 10^3/uL (0.0-0.8); MONO % 7.9 % (2.0-8.0); NEUTROPHILS # 6.9 10^3/uL (1.5-8.5); NEUTROPHILS % 75.7 % (36.0-66.0); PLATELET COUNT, AUTOMATED 442 10^3/uL (150-450); RED BLOOD COUNT 3.52 10^6/uL (4.30-6.10); WHITE BLOOD COUNT 9.1 10^3/uL (4.0-10.0)
[2020-08-31 06:59] LABS: BLOOD UREA NITROGEN 18 MG/DL (7-18); CALCIUM LEVEL 8.3 MG/DL (8.8-10.2); CARBON DIOXIDE LEVEL 31 MEQ/L (21-32); CHLORIDE LEVEL 105 MEQ/L (98-107); CREATININE FOR GFR 0.39 MG/DL (0.70-1.30); GLOMERULAR FILTRATION RATE > 60.0 (>42); GLUCOSE, FASTING 92 MG/DL (70-100); MAGNESIUM LEVEL 2.1 MG/DL (1.8-2.4); POTASSIUM SERUM 3.6 MEQ/L (3.5-5.1); SODIUM LEVEL 142 MEQ/L (136-145)
[2020-08-31] MEDS: MORPHINE 2 MG/ML 1ML VIAL (J2270) IV PRN ×2 (07:54→15:34)
[2020-08-31] MEDS: POTASSIUM CHLORIDE 10 MEQ SR TABLET PO SCH (09:59)
[2020-08-31] MEDS: FUROSEMIDE 40 MG TAB PO SCH (10:00)
[2020-08-31] MEDS: levETIRAcetam 250MG TABLET (KEPPRA) PO SCH ×2 (10:00→20:27)
[2020-08-31] MEDS: NYSTATIN 100,000 UNITS/GM TOPICAL PWD 15 GM TOP SCH ×2 (10:01→20:27)
[2020-08-31] MEDS: PREGABALIN 75 MG CAP(LYRICA) PO SCH ×2 (10:01→20:27)
[2020-08-31] MEDS: D5W/0.45% SODIUM CHLORIDE 1,000 ML IV SCH ×2 (10:02→15:35)
--- NOTE | 2020-08-31 10:09 | IPNPDOC ---
Date Seen The patient was seen on 08/31/20. Progress Note Please have community marketing coordinator call [employer] at [phone] for stat business services representative if note is needed urgently. Hospitalist progress note has been dictated Job number [id number] VS, I&O, 24H, Fishbone Vital Signs/I&O Vital Signs Date Time Temp Pulse Resp B/P (MAP) Pulse Ox O2 Delivery O2 Flow Rate FiO2 08/31/20 08:05 16 08/30/20 22:00 98.1 88 120/68 (85) 91 Room Air 08/30/20 20:30 2.0 I&O- Last 24 Hours up to 6 AM 08/31/20 05:59 Intake Total 900 ml Output Total 1725 ml Balance -825 ml Laboratory Data 24H LABS Laboratory Tests 2 08/31/20 06:23: Immature Granulocyte % (Auto) 0.3, Neutrophils (%) (Auto) 75.7H, Lymphocytes (%) (Auto) 13.0L, Monocytes (%) (Auto) 7.9, Eosinophils (%) (Auto) 2.8, Basophils (%) (Auto) 0.3, Neutrophils # (Auto) 6.9, Lymphocytes # (Auto) 1.2L, Monocytes # (Auto) 0.7, Eosinophils # (Auto) 0.3, Basophils # (Auto) 0.0, Nucleated Red Blood Cells % (auto) 0.0, Anion Gap 6L, Glomerular Filtration Rate > 60.0, Calcium Level 8.3L, Magnesium Level 2.1 CBC/BMP Laboratory Tests 08/31/20 06:23 Microbiology Microbiology 08/26/20 Blood Culture - Final, Complete NO GROWTH AFTER 5 DAYS 08/26/20 Blood Culture - Final, Complete NO GROWTH AFTER 5 DAYS 08/24/20 Gram Stain - Final, Complete 08/24/20 Wound Culture - Final, Complete E.coli Esbl 08/24/20 Anaerobic Culture - Final, Complete Bacteroides Fragilis TONO AGGARWAL MD Aug 31, 2020 10:09
--- NOTE | 2020-08-31 12:33 | IPN ---
PROGRESS NOTE DATE: 08/31/2020 SUBJECTIVE: Per nursing the patient has refused his oral medications this morning. Nasogastric tube has been discontinued. He has been resumed on a liquid diet. The patient denies nausea or vomiting. He complains of persistent abdominal pain bilateral lower quadrants as well as bilateral lower extremity pain. Right leg is larger than the left leg. No fevers or chills overnight. The patient continues to have liquid discharge through his colostomy. OBJECTIVE: Temperature 98.1, pulse 88, respiratory rate 19, blood pressure 120/68, 91% on room air. Generally the patient is withdrawn, not maintaining eye contact. No nasal flaring or use of respiratory accessory muscles, not very cooperative with the interview. No respiratory distress, no jugular venous distention (JVD), thyromegaly. Lungs are diminished but clear. Heart: S1, S2 sinus rhythm. Abdomen has left-sided colostomy. Wound V.A.C. has been removed from the back. He has positive bowel sounds, normoactive. No rebound or guarding. No hepatosplenomegaly. Extremities: Right lower extremity greater than the left with positive pitting edema. LABORATORY DATA: CBC, metabolic panel, imaging studies and microbiology have been reviewed. ASSESSMENT AND PLAN: This is a 75-year-old male with stage IV sacral decubitus requiring diverting colostomy due to stool contamination of the decubitus treated with broad spectrum antibiotics, developed C. difficile colitis and completed ten days of fidaxomicin. Since then the patient has had worsening abdominal pain and free air noted on repeat CT abdomen and pelvis, brought to the OR for exploratory laparoscopy with no signs of perforated viscous, requiring nasogastric tube placement. The patient is now improved with less distention. NG tube has been discontinued. CURRENT ISSUES: 1. Free air in the abdomen with negative source of perforated viscous status post exploratory laparoscopy 08/28/2020 managed by surgery, resolved. The patient is status post nasogastric tube, now back on a liquid diet, still on IV fluids. 2. Enterococcus urinary tract infection status post antibiotics. 3. ESBL sacral decubitus stage IV. Wound V.A.C. has been discontinued. Now on daily dressing changes. 4. C. difficile colitis. Completed ten days of Dificid. ID following. 5. Mechanical fall and debility. ARU consult. 6. History of seizure disorder on home medications. 7. Possible depression. Refuses psych consult at this time. We will continue to encourage the patient to consider psych consult. AVID
--- NOTE | 2020-08-31 12:33 | IPN ---
PROGRESS NOTE DATE: 08/30/2020 Fan is in better spirits today. His abdominal distention has improved. He has a nasogastric (NG) tube in place. He still has some abdominal pain. His stoma is still edematous. He has completed fidaxomicin. There is minimal stool in the colostomy. His wound vacuum assisted closure (VAC) is not keeping a good seal either. He will be seen by Dr Joiner this afternoon as well. PHYSICAL EXAMINATION: Heart: Normal S1, S2, no murmurs, rubs, or gallops. Lungs: Clear, no wheezes, rales, or rhonchi. Abdomen: Distended, soft, mildly tender. Colostomy edematous with minimal liquid stool in the bag. Temperature is 97.8, pulse 80, respirations 18, blood pressure 128/71. Extremities: Bilateral heel decubitus ulcer with eschar on the left heel measuring about 6 x 7 cm. +1 pitting edema both lower extremities. Right heel decubitus. LABORATORY DATA: White count 11.4, down from 14.7, hemoglobin 10.4, hematocrit 33, platelet 465, ESR 66, sodium 142, potassium 3.7, chloride 106, bicarbonate 33, BUN 23, creatinine 0.57, glucose 113, calcium 8.6, magnesium 2.2, CRP 17.3, increased from 16.9. Buttock culture had positive extended spectrum beta-lactamase (ESBL) Escherichia (E) coli and Bacteroides fragilis. Blood cultures were negative on 08/26/2020, two sets. IMPRESSION: 1. Free air status post colostomy but there was no perforated viscus on exploratory laparoscopy done on 08/28/2020 with persistent abdominal distention status post nasogastric (NG) tube placement. I will add IV Invanz 1 gram daily as I am concerned with the perforation there might have been some leakage of stool and patient may end up with an intraabdominal abscess. 2. Sacral decubitus ulcer with culture positive for extended spectrum beta-lactamase (ESBL) Escherichia (E) coli and Bacteroides. Patient will be treated with IV Invanz. I did not get to see the wound today. 3. History of Clostridium (C) difficile colitis. Currently, diarrhea has resolved due to the fact that he has an ileus. He finished 10 days of Dificid. Will continue to monitor. PLAN: Start Invanz 1 gram daily. Monitor for diarrhea with antibiotics. If patient develops a fever or worsening white count, repeat CT abdomen and pelvis. MTDD
[2020-08-31 14:00] VITALS: BP 111/65
--- NOTE | 2020-08-31 14:45 | IPNPDOC ---
Text Note Date of Service The patient was seen on 08/31/20. NOTE Patient is starting to put out more liquid output from his colostomy and less so from his ngt. He denies any abdominal discomfort, nausea. He has been afebrile, nontachycardic On exam looks comfortable, NGT in place, minimal output past 24 hours abdomen: soft minimally distended, port site incisions c/d/i, no active drainage. brown liquid stool in the colostomy bag, amount of swelling moderately improved, still healthy appearing Impression and plan: s/p colostmy placement and also post diagnostic laparoscopy to rule out intraabdominal injury from prior colostomy placement postop ileus resolving will dc ngt will allow him clears, can be advanced as tolerated. He remains on multiple antibiotics, I did not see any intraabdominal source of infection, will leave this to the medical service when it is to be discontinued. VS,Fishbone, I+O VS, Fishbone, I+O Laboratory Tests 08/31/20 06:23 Vital Signs Date Time Temp Pulse Resp B/P (MAP) Pulse Ox O2 Delivery O2 Flow Rate FiO2 08/31/20 14:00 98.0 80 18 111/65 (80) 95 Room Air 08/31/20 09:00 2.0 I&O- Last 24 Hours up to 6 AM 08/31/20 06:00 Intake Total 900 ml Output Total 1400 ml Balance -500 ml COLEEN JONES MD Aug 31, 2020 14:45
[2020-08-31] MEDS: ERTAPENEM SODIUM 1 GM in NS MINI-BAG PLUS 50 ML IV SCH (15:34)
--- NOTE | 2020-08-31 16:21 | IPNPDOC ---
Subjective General Date Seen: Aug 31, 2020 Subject Chief Complaint/History The patient is a 75-year-old male admitted with a reason for visit of Uti,Weakness, Sacral Decubitus,Spinal Tumor. Patient status post irrigation and debridement of sacral wound. Today is wound vac change. Patient seen and examined. No complains of sacral pain. Current Medications Current Medications Current Medications Medications (Trade) Dose Ordered Sig/Mark Route PRN Reason Start Time Stop Time Status Last Admin Dose Admin Acetaminophen (Tylenol Tab) 650 mg Q4H PRN PO PAIN OR FEVER 08/14/20 01:25 08/27/20 21:51 Al Hydrox/Mg Hydrox/Simethicone (Mylanta) 30 ml DAILY PRN PO DYSPEPSIA 08/14/20 01:25 Cefepime HCl 2 gm/ Dextrose 50 ml @ 100 mls/hr Q12H IV 08/14/20 03:00 08/19/20 15:52 DC 08/19/20 15:26 Collagenase (SantyL) APPLY TO SACRUM DAILY TOP 08/22/20 09:00 08/24/20 12:51 DC 08/23/20 09:12 Collagenase (SantyL) APPLY TO SACRUM DAILYPRN PRN TOP SOILED WOUND DRESSING 08/22/20 14:10 08/24/20 12:51 DC Dextrose (Dextrose 50%) 25 ml ASDIRECTED PRN IV SEE LABEL COMMENTS 08/28/20 15:00 Dextrose/Sodium Chloride 1,000 ml @ 75 mls/hr [id number] IV 08/28/20 15:00 08/31/20 15:35 Diatrizoate Meglum/ Diatrizoate Sod (Gastrografin) 10 ml Q30M PO 08/28/20 11:15 08/28/20 11:46 DC 08/28/20 11:34 Docusate Sodium (Colace) 100 mg BID PO 08/14/20 09:00 08/19/20 15:44 DC 08/17/20 09:43 Enoxaparin Sodium (Lovenox) 40 mg DAILY SC 08/14/20 09:00 08/28/20 14:42 DC 08/28/20 09:36 Ertapenem 1 gm/ Sodium Chloride 50 ml @ 100 mls/hr Q24H IV 08/30/20 16:00 08/31/20 15:34 Fentanyl Citrate (Sublimaze) 25 mcg Q5MP PRN IV PAIN LEVEL 5-10 08/24/20 13:05 08/24/20 13:16 DC 08/24/20 13:15 Fentanyl Citrate (Sublimaze) 25 mcg Q5MP PRN IV PAIN LEVEL 5-10 08/28/20 20:00 08/28/20 21:00 DC Fidaxomicin (Dificid) 200 mg BID PO 08/19/20 21:00 08/29/20 09:01 DC 08/28/20 22:42 Furosemide (Lasix) 40 mg DAILY PO 08/14/20 09:00 08/31/20 10:00 Gabapentin (Neurontin) 600 mg BID PO 08/14/20 09:00 Hold Glucagon (Glucagon) 1 mg ASDIRECTED PRN SC SEE LABEL COMMENTS 08/28/20 15:00 Glucose (Glucose) 16 GM ASDIRECTED PRN PO SEE LABEL COMMENTS 08/28/20 15:00 Heparin Sodium (Heparin (Flush)) 200 units ASDIRECTED PRN IV SEE LABEL COMMENTS 08/24/20 16:20 Heparin Sodium (Heparin (Flush)) 200 units PICC IV 08/24/20 18:00 08/28/20 06:17 Home Med (Med Rec Complete!) ASDIRECTED XX 08/14/20 07:25 08/14/20 07:23 DC Hydromorphone HCl (Dilaudid) 0.2 mg Q5MP PRN IV PAIN LEVEL 4-7 08/24/20 13:05 08/24/20 14:05 DC 08/24/20 13:42 Lactated Ringer's 1,000 ml @ 100 mls/hr Q10H IV 08/24/20 13:05 08/24/20 14:05 DC Lactated Ringer's 1,000 ml @ 100 mls/hr Q10H IV 08/28/20 20:00 08/28/20 21:00 DC Levetiracetam (Keppra) 750 mg DAILY PO 08/14/20 09:00 08/31/20 10:00 Levetiracetam (Keppra) 1,000 mg QHS PO 08/14/20 21:00 08/29/20 22:16 Magnesium Hydroxide (Milk Of Magnesia) 30 ml DAILY PRN PO CONSTIPATION 08/14/20 01:25 08/15/20 01:48 Metoclopramide HCl (REGLAN INJection) 10 mg Q6HP PRN IV NAUSEA OR VOMITING 08/28/20 20:00 08/28/20 21:00 DC Morphine Sulfate (Morphine Sulfate Inj) 2 mg Q3H PRN IV SEVERE PAIN (PS 8-10) 08/30/20 19:00 08/31/20 15:34 Nystatin (Mycostatin Powder, Nystop) groin BID TOP 08/26/20 21:00 08/31/20 10:01 Ondansetron HCl (ZOFRAN INJection) 4 mg Q4HP PRN IV NAUSEA OR VOMITING 08/24/20 13:05 08/24/20 14:05 DC Ondansetron HCl (ZOFRAN INJection) 4 mg Q4HP PRN IV NAUSEA OR VOMITING 08/28/20 20:00 08/28/20 21:00 DC Oxycodone HCl (Roxicodone, Oxyir) 5 mg ASDIRECTED PRN PO PAIN LEVEL 1-4 08/24/20 13:05 08/24/20 14:05 DC 08/24/20 13:26 Oxycodone/ Acetaminophen (Percocet 5mg/ 325mg Tablet) 1 tab Q6HP PRN PO MODERATE PAIN (PS 5-7) 08/24/20 12:45 08/28/20 09:37 Polyethylene Glycol (Miralax) 1 pkt BID PRN PO CONSTIPATION 08/14/20 22:15 08/28/20 18:55 DC 08/15/20 01:48 Potassium Chloride (Micro-K Extencaps) 20 meq DAILY PO 08/14/20 09:00 08/31/20 09:59 Pregabalin (Lyrica) 150 mg BID PO 08/14/20 09:00 08/31/20 10:01 Sodium Chloride (Saline Lock Flush) 2 ml ASDIRECTED PRN IV SEE LABEL COMMENTS 08/14/20 10:50 08/26/20 14:24 DC Sodium Chloride (Saline Lock Flush) 2 ml SLF IV 08/14/20 14:00 08/26/20 14:24 DC 08/26/20 06:26 Sodium Chloride (Saline Lock Flush) 10 ml ASDIRECTED PRN IV SEE LABEL COMMENTS 08/24/20 16:20 Sodium Chloride (Saline Lock Flush) 10 ml PICC IV 08/24/20 18:00 08/28/20 06:17 Vancomycin HCl (First-Vancomycin 50(Firvanq)- 250mg/5ml) 125 mg Q6H PO 08/16/20 18:00 08/19/20 15:52 DC 08/19/20 12:01 Vancomycin HCl 500 mg/Dextrose 110 ml @ 110 mls/hr Q12H IV 08/14/20 14:00 08/15/20 14:13 DC 08/15/20 02:05 Vancomycin HCl 750 mg/IV Miscellaneous Supplies 1 each/ Sodium Chloride 275 ml @ 275 mls/hr Q12H IV 08/14/20 14:00 08/15/20 14:13 DC 08/15/20 03:19 Vancomycin HCl 750 mg/IV Miscellaneous Supplies 1 each/ Sodium Chloride 275 ml @ 275 mls/hr Q24H IV 08/16/20 16:00 08/23/20 23:59 DC 08/23/20 17:01 Vancomycin HCl 750 mg/IV Miscellaneous Supplies 1 each/ Sodium Chloride 275 ml @ 275 mls/hr Q24H IV 08/16/20 17:00 08/23/20 23:59 DC 08/23/20 18:54 Vancomycin HCl 1000 mg/IV Miscellaneous Supplies 1 each/ Sodium Chloride 270 ml @ 270 mls/hr Q12H IV 08/14/20 01:55 Cancel Vancomycin HCl 1000 mg/IV Miscellaneous Supplies 1 each/ Sodium Chloride 270 ml @ 270 mls/hr Q12H IV 08/15/20 14:00 08/16/20 15:28 DC 08/16/20 02:17 Allergies Coded Allergies: linezolid (Verified Allergy, Unknown, 04/23/19) Objective Physical Examination Examination GENERAL APPEARANCE:Patient seen, laying in bed, awake, alert, and oriented. Comfortable, in no acute distress. SKIN: Warm and moist. Sacral wound with residual edge necrosis. Mostly granula ting tissue. LUNGS: Clear to auscultation bilaterally. No wheezing appreciated. HEART: No chest wall abnormalities. Regular rate and rhythm with no murmurs appreciated. ABDOMEN: Abdomen is soft, non-tender, non-distended. NG tube in place. Colostomy working. EXTREMITIES: No edema identified. No calf tenderness. Vital Signs Vital Signs Date Time Temp Pulse Resp B/P (MAP) Pulse Ox O2 Delivery O2 Flow Rate FiO2 08/31/20 15:48 16 08/31/20 14:00 98.0 80 111/65 (80) 95 Room Air 08/31/20 09:00 2.0 I&Os I&O- Last 24 Hours up to 6 AM 08/31/20 06:00 Intake Total 900 ml Output Total 1400 ml Balance -500 ml Laboratory Data Labs 24H Laboratory Tests 2 08/31/20 06:23: Immature Granulocyte % (Auto) 0.3, Neutrophils (%) (Auto) 75.7H, Lymphocytes (%) (Auto) 13.0L, Monocytes (%) (Auto) 7.9, Eosinophils (%) (Auto) 2.8, Basophils (%) (Auto) 0.3, Neutrophils # (Auto) 6.9, Lymphocytes # (Auto) 1.2L, Monocytes # (Auto) 0.7, Eosinophils # (Auto) 0.3, Basophils # (Auto) 0.0, Nucleated Red Blood Cells % (auto) 0.0, Anion Gap 6L, Glomerular Filtration Rate > 60.0, Calcium Level 8.3L, Magnesium Level 2.1 CBC/BMP Laboratory Tests 08/31/20 06:23 Microbiology Microbiology 08/26/20 Blood Culture - Final, Complete NO GROWTH AFTER 5 DAYS 08/26/20 Blood Culture - Final, Complete NO GROWTH AFTER 5 DAYS 08/24/20 Gram Stain - Final, Complete 08/24/20 Wound Culture - Final, Complete E.coli Esbl 08/24/20 Anaerobic Culture - Final, Complete Bacteroides Fragilis Impression D/c wound vac. Start with Santyl and foam dressing changes daily. Off loading. Improving in size. Will follow. Plan / VTE VTE Prophylaxis Ordered?: Yes CHRISTOPHER HERNANDEZ DO Aug 31, 2020 16:21
[2020-08-31 20:22] VITALS: BP 140/72
[2020-09-01 06:00] VITALS: BP 128/69
[2020-09-01] MEDS: SODIUM CHLORIDE 0.9% INJ 10 ML SYR IV SCH ×2 (06:00→18:00)
--- NOTE | 2020-09-01 07:10 | IPNPDOC ---
Date Seen The patient was seen on 09/01/20. Progress Note Pls have community worker call [employer] at [phone] to STAT transcribe Hospitalist progress note dictated job # [id number] VS, I&O, 24H, Fishbone Vital Signs/I&O Vital Signs Date Time Temp Pulse Resp B/P (MAP) Pulse Ox O2 Delivery O2 Flow Rate FiO2 09/01/20 06:00 97.9 76 16 128/69 (88) 96 Nasal Cannula 2.0 I&O- Last 24 Hours up to 6 AM 09/01/20 06:00 Intake Total 1295 ml Output Total 2875 ml Balance -1580 ml Laboratory Data 24H LABS Laboratory Tests 2 09/01/20 06:51: CBC/BMP Microbiology Microbiology 08/26/20 Blood Culture - Final, Complete NO GROWTH AFTER 5 DAYS 08/26/20 Blood Culture - Final, Complete NO GROWTH AFTER 5 DAYS 08/24/20 Gram Stain - Final, Complete 08/24/20 Wound Culture - Final, Complete E.coli Esbl 08/24/20 Anaerobic Culture - Final, Complete Bacteroides Fragilis TONO AGGARWAL MD Sep 01, 2020 07:10
[2020-09-01 07:20] LABS: BASO % 0.4 % (0.0-1.0); EOS # 0.3 10^3/uL (0.0-0.5); EOS % 3.8 % (0.0-3.0); HEMATOCRIT 32.2 % (42.0-52.0); HEMOGLOBIN 10.1 g/dl (13.5-17.5); MEAN CORPUSCULAR HEMOGLOBIN 30.1 pg (27.0-33.0); MEAN CORPUSCULAR HGB CONC 31.4 g/dl (32.0-36.5); MEAN CORPUSCULAR VOLUME 95.8 fl (80.0-96.0); MONO # 0.6 10^3/uL (0.0-0.8); MONO % 7.6 % (2.0-8.0); NEUTROPHILS # 5.7 10^3/uL (1.5-8.5); NEUTROPHILS % 74.8 % (36.0-66.0); PLATELET COUNT, AUTOMATED 393 10^3/uL (150-450); RED BLOOD COUNT 3.36 10^6/uL (4.30-6.10); WHITE BLOOD COUNT 7.6 10^3/uL (4.0-10.0)
[2020-09-01] MEDS: D5W/0.45% SODIUM CHLORIDE 1,000 ML IV SCH ×2 (07:27→22:15)
[2020-09-01 07:36] LABS: BLOOD UREA NITROGEN 14 MG/DL (7-18); CARBON DIOXIDE LEVEL 30 MEQ/L (21-32); CHLORIDE LEVEL 107 MEQ/L (98-107); CREATININE FOR GFR 0.38 MG/DL (0.70-1.30); GLOMERULAR FILTRATION RATE > 60.0 (>42); GLUCOSE, FASTING 97 MG/DL (70-100); MAGNESIUM LEVEL 2.2 MG/DL (1.8-2.4); POTASSIUM SERUM 3.2 MEQ/L (3.5-5.1); SODIUM LEVEL 143 MEQ/L (136-145)
[2020-09-01] MEDS: FUROSEMIDE 40 MG TAB PO SCH (08:53)
[2020-09-01] MEDS: levETIRAcetam 250MG TABLET (KEPPRA) PO SCH ×2 (08:53→21:05)
[2020-09-01] MEDS: PREGABALIN 75 MG CAP(LYRICA) PO SCH ×2 (08:54→21:06)
[2020-09-01] MEDS: NYSTATIN 100,000 UNITS/GM TOPICAL PWD 15 GM TOP SCH ×2 (08:54→21:05)
[2020-09-01] MEDS ORDERED: POTASSIUM CHLORIDE 10 MEQ SR TABLET PO ONE (10:00)
--- NOTE | 2020-09-01 12:45 | IPNPDOC ---
Text Note Date of Service The patient was seen on 09/01/20. NOTE Patient having lots of output from his colostomy. afebrile comfortable, was sleeping when i entered the room abdomen, nondistended, soft, ostomy at LUQ with decreased swelling, output is thin watery stool, nontender to palpation. Impression and plan transverse colostomy psbo vs ileus now resolved and is having high colostomy output post obstructive effect vs effects of his c.diff would add some metamucil for now. no systemic toxic effects if from cdiff, probably post obstructive effect. ok with regular diet. VS,Fishbone, I+O VS, Fishbone, I+O Laboratory Tests 09/01/20 06:51 Vital Signs Date Time Temp Pulse Resp B/P (MAP) Pulse Ox O2 Delivery O2 Flow Rate FiO2 09/01/20 09:00 1.0 09/01/20 06:00 97.9 76 16 128/69 (88) 96 Nasal Cannula I&O- Last 24 Hours up to 6 AM 09/01/20 06:00 Intake Total 1895 ml Output Total 2875 ml Balance -980 ml COLEEN JONES MD Sep 01, 2020 12:45
[2020-09-01] MEDS: METAMUCIL (PSYLLIUM) PACKET PO SCH ×2 (12:56→21:00)
[2020-09-01] MEDS: POTASSIUM CHLORIDE 10 MEQ SR TABLET PO SCH (12:56)
[2020-09-01 15:01] VITALS: BP 129/69
[2020-09-01] MEDS: ERTAPENEM SODIUM 1 GM in NS MINI-BAG PLUS 50 ML IV SCH (16:51)
--- NOTE | 2020-09-01 17:01 | IPN ---
PROGRESS NOTE DATE: 09/01/2020 SUBJECTIVE: Patient is seen and examined at the bedside. Chart has been reviewed. He has had no fever or chills. No nausea or vomiting. He is tolerating his liquid diet. No other issues per nursing. OBJECTIVE: VITAL SIGNS: Temperature 97.9, pulse 76, respiratory rate 16, blood pressure 128/69, 96% on 2 liters nasal cannula. GENERAL: Awake, alert, oriented, answering questions appropriately. HEENT: No jugular venous distention (JVD), or thyromegaly. Moist mucous membranes. No stridor. No use of respiratory accessory muscles. Extraocular muscles intact. LUNGS: Clear to auscultation. No wheezing, rales or rhonchi. HEART: S1, S2. Sinus rhythm. ABDOMEN: Left-sided colostomy. Nontender, nondistended. Positive bowel sounds. EXTREMITIES: Right lower extremity more edematous than the left. LABORATORY DATA: 09/01/2020: Lab work still pending. ASSESSMENT AND PLAN: This is a 75-year-old male admitted from a prison home with a stage IV sacral decubitus that is post debridement and diverting colostomy due to contamination of stool, developed Clostridium (C) difficile colitis, completed 10 days of fidaxomicin, with worsening abdominal pain, free air noted on abdomen and pelvis CT, brought to the operating room (OR) for exploratory laparoscopy. No signs of perforated viscous, but developed postoperative abdominal distention requiring nasogastric tube placement. Current issues: 1. Free air in the abdomen with no source perforated viscous status post exploratory laparotomy 08/28/2020 resolved. 2. Enterococcus urinary tract infection, resolved. 3. Extended spectrum beta-lactamase (ESBL) sacral decubitus stage IV status post diverting colostomy, status post wound vacuum assisted closure (VAC) managed by plastic surgery, now with daily dressing changes, improving. Completed antibiotics. 4. Clostridium (C) difficile colitis, resolved status post 10 days of Dificid. 5. Mechanical fall and debility. Acute rehabilitation unit (ARU) consult, history of seizure disorder and home medications. PLAN: Continue with present management. Still ON antibiotics due to recent abdominal distention, but no perforated viscous. Refer to surgery if we need to continue with intravenous (IV) antibiotics for now. Patient's diet may be advanced. Continue with all other present management, physical therapy (PT), occupational therapy (OT) and acute rehabilitation unit (ARU) consult. RUDY
[2020-09-01] MEDS: PERCOCET 5MG/325MG TAB PO PRN (21:05)
[2020-09-01 21:16] VITALS: BP 130/70
[2020-09-02] MEDS: SODIUM CHLORIDE 0.9% INJ 10 ML SYR IV SCH ×2 (06:00→18:00)
[2020-09-02 06:18] VITALS: BP 124/66
[2020-09-02 07:00] LABS: BASO % 0.4 % (0.0-1.0); EOS # 0.3 10^3/uL (0.0-0.5); EOS % 4.3 % (0.0-3.0); HEMATOCRIT 32.6 % (42.0-52.0); HEMOGLOBIN 10.1 g/dl (13.5-17.5); LYMPH # 1.2 10^3/uL (1.5-5.0); LYMPH % 16.6 % (24.0-44.0); MEAN CORPUSCULAR HEMOGLOBIN 29.7 pg (27.0-33.0); MEAN CORPUSCULAR VOLUME 95.9 fl (80.0-96.0); MONO # 0.6 10^3/uL (0.0-0.8); MONO % 7.6 % (2.0-8.0); NEUTROPHILS # 5.1 10^3/uL (1.5-8.5); NEUTROPHILS % 70.5 % (36.0-66.0); PLATELET COUNT, AUTOMATED 382 10^3/uL (150-450); WHITE BLOOD COUNT 7.3 10^3/uL (4.0-10.0)
[2020-09-02 07:25] LABS: BLOOD UREA NITROGEN 13 MG/DL (7-18); CHLORIDE LEVEL 110 MEQ/L (98-107); CREATININE FOR GFR 0.38 MG/DL (0.70-1.30); GLOMERULAR FILTRATION RATE > 60.0 (>42); GLUCOSE, FASTING 92 MG/DL (70-100); POTASSIUM SERUM 3.5 MEQ/L (3.5-5.1); SODIUM LEVEL 143 MEQ/L (136-145)
[2020-09-02 07:26] LABS: CALCIUM LEVEL 7.9 MG/DL (8.8-10.2); CARBON DIOXIDE LEVEL 28 MEQ/L (21-32); MAGNESIUM LEVEL 2.1 MG/DL (1.8-2.4)
--- NOTE | 2020-09-02 08:40 | IPNPDOC ---
Date Seen The patient was seen on 09/02/20. Progress Note Hospitalist progress note dictated job #[id number]. Please have the unit manager call DONTAE Gonzalez PE at [phone] if progress note is needed urgently for stat talent acquisition relationship manager VS, I&O, 24H, Fishbone Vital Signs/I&O Vital Signs Date Time Temp Pulse Resp B/P (MAP) Pulse Ox O2 Delivery O2 Flow Rate FiO2 09/02/20 06:18 98.4 75 16 124/66 (85) 97 Room Air 09/01/20 09:00 1.0 I&O- Last 24 Hours up to 6 AM 09/02/20 06:00 Intake Total 1330 ml Output Total 3375 ml Balance -2045 ml Laboratory Data 24H LABS Laboratory Tests 2 09/02/20 06:32: Immature Granulocyte % (Auto) 0.6, Neutrophils (%) (Auto) 70.5H, Lymphocytes (%) (Auto) 16.6L, Monocytes (%) (Auto) 7.6, Eosinophils (%) (Auto) 4.3H, Basophils (%) (Auto) 0.4, Neutrophils # (Auto) 5.1, Lymphocytes # (Auto) 1.2L, Monocytes # (Auto) 0.6, Eosinophils # (Auto) 0.3, Basophils # (Auto) 0.0, Nucleated Red Blood Cells % (auto) 0.0, Anion Gap 5L, Glomerular Filtration Rate > 60.0, Calcium Level 7.9L, Magnesium Level 2.1 09/02/20 07:48: Bedside Glucose (Misc Panel) 86 CBC/BMP Laboratory Tests 09/02/20 06:32 Microbiology Microbiology 08/26/20 Blood Culture - Final, Complete NO GROWTH AFTER 5 DAYS 08/26/20 Blood Culture - Final, Complete NO GROWTH AFTER 5 DAYS 08/24/20 Gram Stain - Final, Complete 08/24/20 Wound Culture - Final, Complete E.coli Esbl 08/24/20 Anaerobic Culture - Final, Complete Bacteroides Fragilis TONO AGGARWAL MD Sep 02, 2020 08:40
[2020-09-02] MEDS: METAMUCIL (PSYLLIUM) PACKET PO SCH ×2 (09:58→22:00)
[2020-09-02] MEDS: POTASSIUM CHLORIDE 10 MEQ SR TABLET PO SCH (09:59)
[2020-09-02] MEDS: FUROSEMIDE 40 MG TAB PO SCH (09:59)
[2020-09-02] MEDS: levETIRAcetam 250MG TABLET (KEPPRA) PO SCH ×2 (09:59→21:59)
[2020-09-02] MEDS: PREGABALIN 75 MG CAP(LYRICA) PO SCH ×2 (10:00→21:59)
[2020-09-02] MEDS: NYSTATIN 100,000 UNITS/GM TOPICAL PWD 15 GM TOP SCH ×2 (10:00→21:00)
[2020-09-02] MEDS: PERCOCET 5MG/325MG TAB PO PRN (10:09)
[2020-09-02] MEDS: D5W/0.45% SODIUM CHLORIDE 1,000 ML IV SCH ×2 (11:09→22:05)
[2020-09-02 14:37] VITALS: BP 122/62
--- NOTE | 2020-09-02 14:44 | IPN ---
PROGRESS NOTE DATE: 09/02/2020 SUBJECTIVE: Patient is seen and examined at the bedside. He has remained afebrile, tolerating his advancement of diet yesterday without nausea, vomiting or increasing abdominal distention. No shortness of breath, chest pain, pressure or tightness. PHYSICAL EXAMINATION: Temperature 98.4, pulse 75, respiratory rate 16, blood pressure 124/66, 97% on room air. GENERAL: Patient is awake, alert, oriented to person, place and time, answering questions appropriately. No use of respiratory accessory muscles. HEENT: No jugular venous distention (JVD) or thyromegaly. Moist mucous membranes. No nasogastric tube for the past 48 hours. LUNGS: Diminished but clear to auscultation. No wheezing or rales. HEART: S1, S2. Sinus rhythm. ABDOMEN: Soft. Left-sided diverting colostomy is noted. No rebound or guarding. Positive bowel sounds. Bandaged sacral decubitus stage IV. Wound vacuum assisted closure (VAC) has been removed. EXTREMITIES: Right lower extremity positive edema greater than the left, pitting at 2+. LABORATORY DATA: White count 7.3, hemoglobin 10, hematocrit 32, platelet count 382. Sodium 143, potassium 3.5, chloride 110, bicarbonate 28, BUN 13, creatinine 0.3, glucose 92. ASSESSMENT: This is a 75-year-old male, residential patient, with sacral decubitus admitted for debridement and diverting colostomy due to contamination of stool, was put on intravenous (IV) antibiotics and developed Clostridium (C) difficile colitis, completed 10 days of fidaxomicin, then developed abdominal distention with free air and repeat CT abdomen and pelvis, went to the operating room (OR) for exploratory laparoscopy, which was negative for perforated viscus. Patient has nasogastric tube placed, then removed, now tolerating his diet. IMPRESSION: 1. Free air in the abdomen with no source of perforated viscus as was exploratory laparoscopy on 08/28/2020. 2. Enterococcus urinary tract infection (UTI), resolved. 3. 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 4. Sacral decubitus status post diverting colostomy. 5. Wound vacuum assisted closure (VAC) by plastic surgery, now removed, only on dressing changes, completed antibiotics. 6. Clostridium (C) difficile colitis, resolved status post 10 days of Dificid. 7. Mechanical fall and debility. Acute rehabilitation unit (ARU) consulted. 8. History of seizure disorder on home medications. PLAN: Patient is still on ertapenem since 08/28/2020. White count is normal, no fever. Continues to have liquid output through the diverting colostomy, but completed treatment for Clostridium (C) difficile colitis. Infectious disease was consulted. General surgery consulted. Defer to general surgery for discharge plans. Patient is medically stable on daily dressing changes for his stage IV decubitus. Physical therapy, occupational therapy (OT) has been contacted. Patient says he is usually wheelchair bound and bed-bound at baseline. MTDD
[2020-09-02] MEDS: ERTAPENEM SODIUM 1 GM in NS MINI-BAG PLUS 50 ML IV SCH (16:47)
[2020-09-02] MEDS: ACETAMINOPHEN TAB 650MG DOSE (2X325MG) PO PRN (21:59)
[2020-09-02 22:14] VITALS: BP 118/63
[2020-09-03] MEDS: SODIUM CHLORIDE 0.9% INJ 10 ML SYR IV SCH ×3 (00:58→22:53)
[2020-09-03 06:00] VITALS: BP 110/60
[2020-09-03 06:51] LABS: BASO % 0.6 % (0.0-1.0); EOS # 0.3 10^3/uL (0.0-0.5); EOS % 4.4 % (0.0-3.0); HEMATOCRIT 34.8 % (42.0-52.0); HEMOGLOBIN 10.8 g/dl (13.5-17.5); LYMPH # 1.2 10^3/uL (1.5-5.0); LYMPH % 16.9 % (24.0-44.0); MEAN CORPUSCULAR HEMOGLOBIN 29.9 pg (27.0-33.0); MEAN CORPUSCULAR VOLUME 96.4 fl (80.0-96.0); MONO # 0.5 10^3/uL (0.0-0.8); NEUTROPHILS # 5.1 10^3/uL (1.5-8.5); NEUTROPHILS % 70.1 % (36.0-66.0); PLATELET COUNT, AUTOMATED 378 10^3/uL (150-450); RED BLOOD COUNT 3.61 10^6/uL (4.30-6.10); WHITE BLOOD COUNT 7.3 10^3/uL (4.0-10.0)
[2020-09-03 07:19] LABS: BLOOD UREA NITROGEN 12 MG/DL (7-18); CALCIUM LEVEL 8.3 MG/DL (8.8-10.2); CARBON DIOXIDE LEVEL 28 MEQ/L (21-32); CHLORIDE LEVEL 111 MEQ/L (98-107); GLOMERULAR FILTRATION RATE > 60.0 (>42); GLUCOSE, FASTING 93 MG/DL (70-100); POTASSIUM SERUM 3.1 MEQ/L (3.5-5.1); SODIUM LEVEL 143 MEQ/L (136-145)
[2020-09-03] MEDS: METAMUCIL (PSYLLIUM) PACKET PO SCH ×2 (09:00→21:00)
--- NOTE | 2020-09-03 09:32 | IPNPDOC ---
Date Seen The patient was seen on 09/03/20. Progress Note pls have air conditioning unit tester call [employer] at [phone] to stat transcibe hospitalist progress note job # [id number] VS, I&O, 24H, Fishbone Vital Signs/I&O Vital Signs Date Time Temp Pulse Resp B/P (MAP) Pulse Ox O2 Delivery O2 Flow Rate FiO2 09/03/20 06:00 97.5 76 19 110/60 (77) 95 Nasal Cannula 2.0 I&O- Last 24 Hours up to 6 AM 09/03/20 06:00 Intake Total 2130 ml Output Total 2575 ml Balance -445 ml Laboratory Data 24H LABS Laboratory Tests 2 09/03/20 06:24: Immature Granulocyte % (Auto) 1.0, Neutrophils (%) (Auto) 70.1H, Lymphocytes (%) (Auto) 16.9L, Monocytes (%) (Auto) 7.0, Eosinophils (%) (Auto) 4.4H, Basophils (%) (Auto) 0.6, Neutrophils # (Auto) 5.1, Lymphocytes # (Auto) 1.2L, Monocytes # (Auto) 0.5, Eosinophils # (Auto) 0.3, Basophils # (Auto) 0.0, Nucleated Red Blood Cells % (auto) 0.0, Anion Gap 4L, Glomerular Filtration Rate > 60.0, Calcium Level 8.3L, Magnesium Level 2.0 CBC/BMP Laboratory Tests 09/03/20 06:24 Microbiology Microbiology 08/26/20 Blood Culture - Final, Complete NO GROWTH AFTER 5 DAYS 08/26/20 Blood Culture - Final, Complete NO GROWTH AFTER 5 DAYS 08/24/20 Gram Stain - Final, Complete 08/24/20 Wound Culture - Final, Complete E.coli Esbl 08/24/20 Anaerobic Culture - Final, Complete Bacteroides Fragilis TONO AGGARWAL MD Sep 03, 2020 09:32
--- NOTE | 2020-09-03 09:32 | IPNPDOC ---
Date Seen The patient was seen on 09/03/20. Progress Note pls have party plan sales unit advisor call [employer] at [phone] to stat transcibe hospitalist progress note job # [id number] VS, I&O, 24H, Fishbone Vital Signs/I&O Vital Signs Date Time Temp Pulse Resp B/P (MAP) Pulse Ox O2 Delivery O2 Flow Rate FiO2 09/03/20 06:00 97.5 76 19 110/60 (77) 95 Nasal Cannula 2.0 I&O- Last 24 Hours up to 6 AM 09/03/20 06:00 Intake Total 2130 ml Output Total 2575 ml Balance -445 ml Laboratory Data 24H LABS Laboratory Tests 2 09/03/20 06:24: Immature Granulocyte % (Auto) 1.0, Neutrophils (%) (Auto) 70.1H, Lymphocytes (%) (Auto) 16.9L, Monocytes (%) (Auto) 7.0, Eosinophils (%) (Auto) 4.4H, Basophils (%) (Auto) 0.6, Neutrophils # (Auto) 5.1, Lymphocytes # (Auto) 1.2L, Monocytes # (Auto) 0.5, Eosinophils # (Auto) 0.3, Basophils # (Auto) 0.0, Nucleated Red Blood Cells % (auto) 0.0, Anion Gap 4L, Glomerular Filtration Rate > 60.0, Calcium Level 8.3L, Magnesium Level 2.0 CBC/BMP Laboratory Tests 09/03/20 06:24 Microbiology Microbiology 08/26/20 Blood Culture - Final, Complete NO GROWTH AFTER 5 DAYS 08/26/20 Blood Culture - Final, Complete NO GROWTH AFTER 5 DAYS 08/24/20 Gram Stain - Final, Complete 08/24/20 Wound Culture - Final, Complete E.coli Esbl 08/24/20 Anaerobic Culture - Final, Complete Bacteroides Fragilis TONO AGGARWAL MD Sep 03, 2020 09:32
[2020-09-03] MEDS: LOMOTIL 2.5MG/0.025MG TABLET PO SCH ×2 (10:09→21:15)
[2020-09-03] MEDS: POTASSIUM CHLORIDE 10 MEQ SR TABLET PO SCH ×2 (10:09→21:16)
[2020-09-03] MEDS: PREGABALIN 75 MG CAP(LYRICA) PO SCH ×2 (10:10→21:15)
[2020-09-03] MEDS: levETIRAcetam 250MG TABLET (KEPPRA) PO SCH ×2 (10:10→21:15)
[2020-09-03] MEDS: FUROSEMIDE 40 MG TAB PO SCH (10:11)
[2020-09-03] MEDS ORDERED: SANTYL OINT 30GM TOP PRN (10:30)
--- NOTE | 2020-09-03 10:47 | IPNPDOC ---
Subjective General Date Seen: Sep 03, 2020 Subject Chief Complaint/History The patient is a 75-year-old male admitted with a reason for visit of Uti,Weakness, Sacral Decubitus,Spinal Tumor. Patient s/p debridement of sacral wound stage 4. He is still having residual diarrhea. Colostomy working. Current Medications Current Medications Current Medications Medications (Trade) Dose Ordered Sig/Mark Route PRN Reason Start Time Stop Time Status Last Admin Dose Admin Acetaminophen (Tylenol Tab) 650 mg Q4H PRN PO PAIN OR FEVER 08/14/20 01:25 09/02/20 21:59 Al Hydrox/Mg Hydrox/Simethicone (Mylanta) 30 ml DAILY PRN PO DYSPEPSIA 08/14/20 01:25 Cefepime HCl 2 gm/ Dextrose 50 ml @ 100 mls/hr Q12H IV 08/14/20 03:00 08/19/20 15:52 DC 08/19/20 15:26 Collagenase (SantyL) APPLY TO SACRUM DAILY TOP 08/22/20 09:00 08/24/20 12:51 DC 08/23/20 09:12 Collagenase (SantyL) APPLY TO SACRUM DAILYPRN PRN TOP SOILED WOUND DRESSING 08/22/20 14:10 08/24/20 12:51 DC Collagenase (SantyL) To sacrum. DAILY TOP 09/03/20 09:00 Collagenase (SantyL) With bowel movements. [facility] PRN TOP DIARRHEA 09/03/20 10:30 Dextrose (Dextrose 50%) 25 ml ASDIRECTED PRN IV SEE LABEL COMMENTS 08/28/20 15:00 Dextrose/Sodium Chloride 1,000 ml @ 75 mls/hr [id number] IV 08/28/20 15:00 09/02/20 22:05 Diatrizoate Meglum/ Diatrizoate Sod (Gastrografin) 10 ml Q30M PO 08/28/20 11:15 08/28/20 11:46 DC 08/28/20 11:34 Diphenoxylate HCl/ Atropine (Lomotil 2.5mg/ 0.025mg) 1 ea BID PO 09/03/20 09:00 09/03/20 10:09 Docusate Sodium (Colace) 100 mg BID PO 08/14/20 09:00 08/19/20 15:44 DC 08/17/20 09:43 Enoxaparin Sodium (Lovenox) 40 mg DAILY SC 08/14/20 09:00 08/28/20 14:42 DC 08/28/20 09:36 Ertapenem 1 gm/ Sodium Chloride 50 ml @ 100 mls/hr Q24H IV 08/30/20 16:00 09/02/20 16:47 Fentanyl Citrate (Sublimaze) 25 mcg Q5MP PRN IV PAIN LEVEL 5-10 08/24/20 13:05 08/24/20 13:16 DC 08/24/20 13:15 Fentanyl Citrate (Sublimaze) 25 mcg Q5MP PRN IV PAIN LEVEL 5-10 08/28/20 20:00 08/28/20 21:00 DC Fidaxomicin (Dificid) 200 mg BID PO 08/19/20 21:00 08/29/20 09:01 DC 08/28/20 22:42 Furosemide (Lasix) 40 mg DAILY PO 08/14/20 09:00 09/03/20 10:11 Gabapentin (Neurontin) 600 mg BID PO 08/14/20 09:00 Hold Glucagon (Glucagon) 1 mg ASDIRECTED PRN SC SEE LABEL COMMENTS 08/28/20 15:00 Glucose (Glucose) 16 GM ASDIRECTED PRN PO SEE LABEL COMMENTS 08/28/20 15:00 Heparin Sodium (Heparin (Flush)) 200 units ASDIRECTED PRN IV SEE LABEL COMMENTS 08/24/20 16:20 Heparin Sodium (Heparin (Flush)) 200 units PICC IV 08/24/20 18:00 08/28/20 06:17 Home Med (Med Rec Complete!) ASDIRECTED XX 08/14/20 07:25 08/14/20 07:23 DC Hydromorphone HCl (Dilaudid) 0.2 mg Q5MP PRN IV PAIN LEVEL 4-7 08/24/20 13:05 08/24/20 14:05 DC 08/24/20 13:42 Lactated Ringer's 1,000 ml @ 100 mls/hr Q10H IV 08/24/20 13:05 08/24/20 14:05 DC Lactated Ringer's 1,000 ml @ 100 mls/hr Q10H IV 08/28/20 20:00 08/28/20 21:00 DC Levetiracetam (Keppra) 750 mg DAILY PO 08/14/20 09:00 09/03/20 10:10 Levetiracetam (Keppra) 1,000 mg QHS PO 08/14/20 21:00 09/02/20 21:59 Magnesium Hydroxide (Milk Of Magnesia) 30 ml DAILY PRN PO CONSTIPATION 08/14/20 01:25 08/15/20 01:48 Metoclopramide HCl (REGLAN INJection) 10 mg Q6HP PRN IV NAUSEA OR VOMITING 08/28/20 20:00 08/28/20 21:00 DC Morphine Sulfate (Morphine Sulfate Inj) 2 mg Q3H PRN IV SEVERE PAIN (PS 8-10) 08/30/20 19:00 08/31/20 15:34 Nystatin (Mycostatin Powder, Nystop) groin BID TOP 08/26/20 21:00 09/02/20 10:00 Ondansetron HCl (ZOFRAN INJection) 4 mg Q4HP PRN IV NAUSEA OR VOMITING 08/24/20 13:05 08/24/20 14:05 DC Ondansetron HCl (ZOFRAN INJection) 4 mg Q4HP PRN IV NAUSEA OR VOMITING 08/28/20 20:00 08/28/20 21:00 DC Oxycodone HCl (Roxicodone, Oxyir) 5 mg ASDIRECTED PRN PO PAIN LEVEL 1-4 08/24/20 13:05 08/24/20 14:05 DC 08/24/20 13:26 Oxycodone/ Acetaminophen (Percocet 5mg/ 325mg Tablet) 1 tab Q6HP PRN PO MODERATE PAIN (PS 5-7) 08/24/20 12:45 09/02/20 10:09 Polyethylene Glycol (Miralax) 1 pkt BID PRN PO CONSTIPATION 08/14/20 22:15 08/28/20 18:55 DC 08/15/20 01:48 Potassium Chloride (Micro-K Extencaps) 20 meq DAILY PO 08/14/20 09:00 09/03/20 09:28 DC 09/02/20 09:59 Potassium Chloride (Micro-K Extencaps) 40 meq BID PO 09/03/20 09:00 09/03/20 10:09 Pregabalin (Lyrica) 150 mg BID PO 08/14/20 09:00 09/03/20 10:10 Psyllium Hydrophilic Mucilloid (Metamucil) 1 pkt BID PO 09/01/20 09:00 09/02/20 09:58 Sodium Chloride (Saline Lock Flush) 2 ml ASDIRECTED PRN IV SEE LABEL COMMENTS 08/14/20 10:50 08/26/20 14:24 DC Sodium Chloride (Saline Lock Flush) 2 ml SLF IV 08/14/20 14:00 08/26/20 14:24 DC 08/26/20 06:26 Sodium Chloride (Saline Lock Flush) 10 ml ASDIRECTED PRN IV SEE LABEL COMMENTS 08/24/20 16:20 Sodium Chloride (Saline Lock Flush) 10 ml PICC IV 08/24/20 18:00 08/28/20 06:17 Vancomycin HCl (First-Vancomycin 50(Firvanq)- 250mg/5ml) 125 mg Q6H PO 08/16/20 18:00 08/19/20 15:52 DC 08/19/20 12:01 Vancomycin HCl 500 mg/Dextrose 110 ml @ 110 mls/hr Q12H IV 08/14/20 14:00 08/15/20 14:13 DC 08/15/20 02:05 Vancomycin HCl 750 mg/IV Miscellaneous Supplies 1 each/ Sodium Chloride 275 ml @ 275 mls/hr Q12H IV 08/14/20 14:00 08/15/20 14:13 DC 08/15/20 03:19 Vancomycin HCl 750 mg/IV Miscellaneous Supplies 1 each/ Sodium Chloride 275 ml @ 275 mls/hr Q24H IV 08/16/20 16:00 08/23/20 23:59 DC 08/23/20 17:01 Vancomycin HCl 750 mg/IV Miscellaneous Supplies 1 each/ Sodium Chloride 275 ml @ 275 mls/hr Q24H IV 08/16/20 17:00 08/23/20 23:59 DC 08/23/20 18:54 Vancomycin HCl 1000 mg/IV Miscellaneous Supplies 1 each/ Sodium Chloride 270 ml @ 270 mls/hr Q12H IV 08/14/20 01:55 Cancel Vancomycin HCl 1000 mg/IV Miscellaneous Supplies 1 each/ Sodium Chloride 270 ml @ 270 mls/hr Q12H IV 08/15/20 14:00 08/16/20 15:28 DC 08/16/20 02:17 Allergies Coded Allergies: linezolid (Verified Allergy, Unknown, 04/23/19) Objective Physical Examination Examination GENERAL APPEARANCE:Patient seen, laying in bed, awake, alert, and oriented. Comfortable, in no acute distress. SKIN: Warm and moist. sacral wound stage 4 7x5.5x1cm with yellow necrosis 50%. Stool contamination. No odor. LUNGS: Clear to auscultation bilaterally. No wheezing appreciated. HEART: No chest wall abnormalities. Regular rate and rhythm with no murmurs appreciated. ABDOMEN: Abdomen is soft, non-tender, non-distended. Colostomy with stool and gas. EXTREMITIES: No edema identified. No calf tenderness. Vital Signs Vital Signs Date Time Temp Pulse Resp B/P (MAP) Pulse Ox O2 Delivery O2 Flow Rate FiO2 09/03/20 06:00 97.5 76 19 110/60 (77) 95 Nasal Cannula 2.0 I&Os I&O- Last 24 Hours up to 6 AM 09/03/20 06:00 Intake Total 2130 ml Output Total 2575 ml Balance -445 ml Laboratory Data Labs 24H Laboratory Tests 2 09/03/20 06:24: Immature Granulocyte % (Auto) 1.0, Neutrophils (%) (Auto) 70.1H, Lymphocytes (%) (Auto) 16.9L, Monocytes (%) (Auto) 7.0, Eosinophils (%) (Auto) 4.4H, Basophils (%) (Auto) 0.6, Neutrophils # (Auto) 5.1, Lymphocytes # (Auto) 1.2L, Monocytes # (Auto) 0.5, Eosinophils # (Auto) 0.3, Basophils # (Auto) 0.0, Nucleated Red Blood Cells % (auto) 0.0, Anion Gap 4L, Glomerular Filtration Rate > 60.0, Calcium Level 8.3L, Magnesium Level 2.0 CBC/BMP Laboratory Tests 09/03/20 06:24 Microbiology Microbiology 08/26/20 Blood Culture - Final, Complete NO GROWTH AFTER 5 DAYS 08/26/20 Blood Culture - Final, Complete NO GROWTH AFTER 5 DAYS 08/24/20 Gram Stain - Final, Complete 08/24/20 Wound Culture - Final, Complete E.coli Esbl 08/24/20 Anaerobic Culture - Final, Complete Bacteroides Fragilis Impression Sacral wound stage 4. Improving Continue with Santyl daily dressing changes, covered with foam. Will keep wound vac off until diarrhea stops. Off loading. Plan / VTE VTE Prophylaxis Ordered?: Yes CHRISTOPHER HERNANDEZ DO Sep 03, 2020 10:47
--- NOTE | 2020-09-03 11:16 | IPN ---
PROGRESS NOTE DATE: 09/03/2020 SUBJECTIVE: The patient is tolerating his diet without nausea or vomiting, increasing abdominal distention. Has had no fever or chills. Denies any shortness of breath, chest pain, pressure or tightness. Patient's Wound-Vac to his Stage IV decubitus has been discontinued, currently just on daily dressing changes. He continues to have watery stools through his diverting colostomy and has completed 10 days of Dificid for a recent C. Diff infection, still currently on Ertapenem due to CT abdomen showing free air, underwent exploratory lap with no signs of perforation. OBJECTIVE: VITAL SIGNS: Temperature 97.5, pulse 76, respiratory rate 19, blood pressure 110/60, 95% on 2 liters nasal cannula. GENERAL: Awake, alert and oriented to person, place and time, answering questions appropriately. No respiratory distress. HEENT/NECK: No JVD, no thyromegaly. Moist mucous membranes. LUNGS: Diminished without wheezing or rales. HEART: S1 and S2 sinus rhythm. ABDOMEN: Diverting colostomy at the left lower quadrant. Positive bowel sounds x4 quadrants. Slight tenderness in the epigastric and right lower quadrant but no rebound or guarding. EXTREMITIES: Chronic edema of right greater than left. LABORATORY DATA: White count is 7.3, hemoglobin is 10.8, hematocrit is 34, platelet count is 378,000. Sodium is 143, potassium is 3.1, chloride 111, bicarbonate 28, BUN 12, creatinine is 0.4, glucose of 93. IMAGING STUDIES: Have been reviewed. ASSESSMENT AND PLAN: This is a 75-year-old male who lives at home with a history of Stage IV sacral decubitus, found to have ESBL, treated with broad-spectrum antibiotics, C. faecalis UTI, developed C. Diff colitis, required Wound-Vac and diverting colostomy due to stool contamination of the sacral decubiti. Patient had a history of spinal lumbar tumor with MRSA and chronic back pain and had fallen at home out of his chair with slurred speech, evaluated with MRI on admission, no acute CVA. CURRENT ISSUES: 1. Stage IV sacral decubitus status post debridement, diverting colostomy and Wound-Vac managed by Plastic Surgery, now on daily dressing changes, completed broad spectrum antibiotics complicated by C. Diff colitis. 2. C. Diff colitis, completed 10 days of fidaxomicin, Infectious Disease following. 3. Fall at home which was mechanical, complaint of slurred speech. MRI showed no acute CVA or bleed, back to baseline mentation. ARU consulted. 4. Enterococcus UTI status post Vancomycin, on contact precautions. 5. Seizure disorder, resume on home medications. 6. Free air in the abdomen with no source of perforated viscus and exploratory laparoscopy on 08/28/2020, started on Ertapenem by ID on 08/30 due to concerns of perforation, currently with normal white count, tolerating his diet, nasogastric tube has been discontinued. DISPOSITION: Patient is currently medically stable for hospital discharge. We would await recommendation from Infectious Disease regarding oral antibiotics if needed and ARU has been consulted for evaluation. RUDY
[2020-09-03] MEDS: NYSTATIN 100,000 UNITS/GM TOPICAL PWD 15 GM TOP SCH ×2 (11:38→21:00)
[2020-09-03] MEDS: SANTYL OINT 30GM TOP SCH (11:39)
[2020-09-03 14:36] VITALS: BP 118/67
[2020-09-03] MEDS: D5W/0.45% SODIUM CHLORIDE 1,000 ML IV SCH ×2 (16:21→21:17)
[2020-09-03] MEDS: ERTAPENEM SODIUM 1 GM in NS MINI-BAG PLUS 50 ML IV SCH (16:21)
[2020-09-03] MEDS: ACETAMINOPHEN TAB 650MG DOSE (2X325MG) PO PRN (21:15)
[2020-09-03 22:00] VITALS: BP 119/60
[2020-09-04 06:00] VITALS: BP 113/60
[2020-09-04 06:46] LABS: BASO % 0.4 % (0.0-1.0); EOS # 0.3 10^3/uL (0.0-0.5); HEMATOCRIT 31.8 % (42.0-52.0); HEMOGLOBIN 9.9 g/dl (13.5-17.5); LYMPH # 1.2 10^3/uL (1.5-5.0); LYMPH % 18.3 % (24.0-44.0); MEAN CORPUSCULAR HEMOGLOBIN 30.3 pg (27.0-33.0); MEAN CORPUSCULAR HGB CONC 31.1 g/dl (32.0-36.5); MEAN CORPUSCULAR VOLUME 97.2 fl (80.0-96.0); MONO # 0.5 10^3/uL (0.0-0.8); MONO % 7.7 % (2.0-8.0); NEUTROPHILS # 4.6 10^3/uL (1.5-8.5); NEUTROPHILS % 67.7 % (36.0-66.0); PLATELET COUNT, AUTOMATED 356 10^3/uL (150-450); RED BLOOD COUNT 3.27 10^6/uL (4.30-6.10); WHITE BLOOD COUNT 6.8 10^3/uL (4.0-10.0)
[2020-09-04 07:12] LABS: BLOOD UREA NITROGEN 10 MG/DL (7-18); CARBON DIOXIDE LEVEL 28 MEQ/L (21-32); CHLORIDE LEVEL 111 MEQ/L (98-107); CREATININE FOR GFR 0.38 MG/DL (0.70-1.30); GLOMERULAR FILTRATION RATE > 60.0 (>42); GLUCOSE, FASTING 83 MG/DL (70-100); MAGNESIUM LEVEL 1.8 MG/DL (1.8-2.4); POTASSIUM SERUM 3.5 MEQ/L (3.5-5.1); SODIUM LEVEL 144 MEQ/L (136-145)
[2020-09-04 08:50] VITALS: BP 113/60
[2020-09-04] MEDS: LOMOTIL 2.5MG/0.025MG TABLET PO SCH ×3 (10:07→22:04)
[2020-09-04] MEDS: PREGABALIN 75 MG CAP(LYRICA) PO SCH ×2 (10:07→22:04)
[2020-09-04] MEDS: CHOLESTYRAMINE 4 GM PWD PKT PO SCH ×4 (10:08→21:00)
[2020-09-04] MEDS: levETIRAcetam 250MG TABLET (KEPPRA) PO SCH ×2 (10:08→22:04)
[2020-09-04] MEDS: POTASSIUM CHLORIDE 10 MEQ SR TABLET PO SCH ×2 (10:10→22:05)
[2020-09-04] MEDS: NYSTATIN 100,000 UNITS/GM TOPICAL PWD 15 GM TOP SCH ×2 (10:11→21:00)
[2020-09-04] MEDS: SANTYL OINT 30GM TOP SCH (10:11)
[2020-09-04 13:30] VITALS: BP 111/60
--- NOTE | 2020-09-04 16:13 | IPNPDOC ---
Text Note Date of Service The patient was seen on 09/04/20. NOTE Patient seen today. He reports no abdominal discomfort. He is tolerating regular food. He had resolve his postoperative ileus and has had high ostomy output for the last several days to this seems to be slightly tapering off. Still has liquid output from his ostomy though seems more concentrated, still not performed yet. Review of the ostomy output the past few days shows that he has had 2.5 L out on September 01, 2.2 L out in August, 1.1 L out in September 03. I started him on Lomotil twice a day yesterday. He is refusing Metamucil which would be ideal on trying to get form and bulkiness on his stool. Abdomen Now flat, nondistended. He has multiple 5 mm port sites are covered with Dermabond and healing well. Receding swelling from his ostomy. There is a dark green still liquid stool in the ostomy bag. Impression and plan Colostomy status His ostomy output has decreased. Recommend increasing Lomotil 23 times daily. Also using Questran instead of Metamucil as he is refusing the Metamucil. Once the stools are formed and then we can taper off on all his medications. I feel this is most likely postobstructive given the length of time that he had ileus and also with the swelling of the colostomy. VS,Fishbone, I+O VS, Fishbone, I+O Laboratory Tests 09/04/20 06:29 Vital Signs Date Time Temp Pulse Resp B/P (MAP) Pulse Ox O2 Delivery O2 Flow Rate FiO2 09/04/20 13:30 97.5 73 16 111/60 (77) 95 Room Air 09/04/20 06:00 2.0 I&O- Last 24 Hours up to 6 AM 09/04/20 06:00 Intake Total 1530 ml Output Total 1225 ml Balance 305 ml COLEEN JONES MD Sep 04, 2020 16:13
[2020-09-04] MEDS: ERTAPENEM SODIUM 1 GM in NS MINI-BAG PLUS 50 ML IV SCH (16:17)
[2020-09-04] MEDS: SODIUM CHLORIDE 0.9% INJ 10 ML SYR IV SCH (16:18)
[2020-09-04 22:00] VITALS: BP 121/65
[2020-09-04] MEDS: ACETAMINOPHEN TAB 650MG DOSE (2X325MG) PO PRN (22:05)
[2020-09-04] MEDS: D5W/0.45% SODIUM CHLORIDE 1,000 ML IV SCH (22:06)
--- NOTE | 2020-09-04 22:06 | IPNPDOC ---
Subjective Date Seen The patient was seen on 09/04/20. Subjective Chief Complaint/HPI Continues to have large amount of diarrhea in the colostomy though appears to be little thicker than before as per nurses. Objective Physical Examination General Exam: Positive: Alert, Cooperative, No Acute Distress Eye Exam: Positive: PERRLA, Conjunctiva & lids normal, EOMI; Negative: Sclera icteric ENT Exam: Positive: Atraumatic, Mucous membr. 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 multiple back surgeries between - , thoracic laminectomy and lumber fusion, neuropathic charcoat joint, Chronic right and left heels and his sacral coccyx area pressure ulcers initially presented to the ED after a mechanical fall at home during transferring and was found to have large infected Stage IV sacral decubitus with ESBL E coli and E.faecalis UTI was treated with broad-spectrum antibiotics. He developed C. Diff colitis causing stool contamination of the decubiti. So needed a diverting colostomy. Had pro longed ileus after colostomy. Infected Stage IV sacral decubitus status post debridement, diverting colostomy and Wound-Vac managed by Plastic Surgery, now on daily dressing changes, Cultures grew ESBL and Anaerobes completed broad spectrum antibiotics C. Diff colitis, completed 10 days of fidaxomicin, Infectious Disease following. Persistent diarrhea likely post obstructive after the prolonged ileus. started on questran, imodium Fall at home which was mechanical MRI was negative for an acute CVA or bleed, back to baseline mentation. Enterococcus UTI with chronic indwelling ware status post Vancomycin, on contact precautions.. Free air in the abdomen with no source of perforated viscus found in exploratory laparoscopy on 08/28/2020, started on Ertapenem by ID on 08/30 due to concerns of perforation will finish course History of seizure disorder home meds keppra Flaccid Neurogenic bladder from spinal cord surgery chronic ware Chronic back pain post laminectomy syndrome gabapentin, lyrica, oxycodone Chronic Leg weakness due to chronic neuropathy / WC bound s/p surgery for lumber spinal tumor and multiple follow up surgeries from 1979 to 1995/ Meningocele/ pseudomeningocele/ arachnoiditis Cyst drainage from the lower back in 2014 MRI: MRI sacrum w and wo contrast (08/18/20): Large dorsal pseudomeningocele and intraspinal cyst at thoracolumbar junction. There is fluid in T11-T12 disc space which may be fluid extension from the pseudomeningocele and cyst but cannot completely exclude infection. No additional findings to definitively indicate infection. Correlate clinically. 2. No evidence of sacral osteomyelitis in visualized portions of sacrum. Stable nonspecific presacral edema compared to prior CT of abdomen and pelvis. Neuropathic Charcot foot/ MRSA of right foot/ Bilateral heel ulcers s/p debridement Chronic osteomyelitis of right distal fibula Plan/VTE VTE Prophylaxis Ordered?: Yes VS[facility] Vital Signs/I&O Vital Signs Date Time Temp Pulse Resp B/P (MAP) Pulse Ox O2 Delivery O2 Flow Rate FiO2 09/04/20 13:30 97.5 73 16 111/60 (77) 95 Room Air 09/04/20 06:00 2.0 I&O- Last 24 Hours up to 6 AM 09/04/20 07:00 Intake Total 1530 ml Output Total 1225 ml Balance 305 ml Laboratory Data 24H LABS Laboratory Tests 2 09/04/20 06:29: Immature Granulocyte % (Auto) 0.9, Neutrophils (%) (Auto) 67.7H, Lymphocytes (%) (Auto) 18.3L, Monocytes (%) (Auto) 7.7, Eosinophils (%) (Auto) 5.0H, Basophils (%) (Auto) 0.4, Neutrophils # (Auto) 4.6, Lymphocytes # (Auto) 1.2L, Monocytes # (Auto) 0.5, Eosinophils # (Auto) 0.3, Basophils # (Auto) 0.0, Nucleated Red Blood Cells % (auto) 0.0, Anion Gap 5L, Glomerular Filtration Rate > 60.0, Calcium Level 8.0L, Magnesium Level 1.8 CBC/BMP Laboratory Tests 09/04/20 06:29 Microbiology Microbiology 08/26/20 Blood Culture - Final, Complete NO GROWTH AFTER 5 DAYS 08/26/20 Blood Culture - Final, Complete NO GROWTH AFTER 5 DAYS JESSICA GRIFFITHS MD Sep 04, 2020 22:06
[2020-09-05] MEDS: SODIUM CHLORIDE 0.9% INJ 10 ML SYR IV SCH ×2 (03:11→16:37)
[2020-09-05 06:00] VITALS: BP 129/62
[2020-09-05] MEDS: CHOLESTYRAMINE 4 GM PWD PKT PO SCH ×4 (08:34→20:38)
[2020-09-05] MEDS: PREGABALIN 75 MG CAP(LYRICA) PO SCH ×2 (08:41→20:39)
[2020-09-05] MEDS: LOMOTIL 2.5MG/0.025MG TABLET PO SCH ×3 (08:41→20:39)
[2020-09-05] MEDS: levETIRAcetam 250MG TABLET (KEPPRA) PO SCH ×2 (08:42→20:39)
[2020-09-05] MEDS: POTASSIUM CHLORIDE 10 MEQ SR TABLET PO SCH ×2 (08:42→20:39)
[2020-09-05] MEDS: SANTYL OINT 30GM TOP SCH (08:43)
[2020-09-05] MEDS: NYSTATIN 100,000 UNITS/GM TOPICAL PWD 15 GM TOP SCH ×2 (08:43→20:41)
[2020-09-05] MEDS: D5W/0.45% SODIUM CHLORIDE 1,000 ML IV SCH (10:11)
[2020-09-05 14:56] VITALS: BP 120/65
[2020-09-05] MEDS: ERTAPENEM SODIUM 1 GM in NS MINI-BAG PLUS 50 ML IV SCH (16:36)
[2020-09-05] MEDS: PERCOCET 5MG/325MG TAB PO PRN (20:40)
--- NOTE | 2020-09-05 20:57 | IPNPDOC ---
Subjective Date Seen The patient was seen on 09/05/20. Subjective Chief Complaint/HPI Diarrhea seems to be a little less today. will stop IVF. No abdominal pain. Still has some stool output from the rectal stump. Objective Physical Examination General Exam: Positive: Alert, Cooperative, No Acute Distress Eye Exam: Positive: PERRLA, Conjunctiva & lids normal, EOMI; Negative: Sclera icteric ENT Exam: Positive: Atraumatic, Mucous membr. 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 multiple back surgeries between - , thoracic laminectomy and lumber fusion, neuropathic charcoat joint, Chronic right and left heels and his sacral coccyx area pressure ulcers initially presented to the ED after a mechanical fall at home during transferring and was found to have large infected Stage IV sacral decubitus with ESBL E coli and E.faecalis UTI was treated with broad-spectrum antibiotics. He developed C. Diff colitis causing stool contamination of the decubiti. So needed a diverting colostomy. Had prolonged ileus after colostomy. Infected Stage IV sacral decubitus status post debridement, diverting colostomy and Wound-Vac managed by Plastic Surgery, now on daily dressing changes, Cultures grew ESBL and Anaerobes completed broad spectrum antibiotics C. Diff colitis, completed 10 days of fidaxomicin, Infectious Disease following. Persistent diarrhea likely post obstructive after the prolonged ileus. started on questran, imodium seems to be less today. will stop IVF. Fall at home which was mechanical MRI was negative for an acute CVA or bleed, back to baseline mentation. Enterococcus UTI with chronic indwelling ware status post Vancomycin, on contact precautions.. Free air in the abdomen with no source of perforated viscus found in exploratory laparoscopy on 08/28/2020, started on Ertapenem by ID on 08/30 due to concerns of perforation finished 7 days. History of seizure disorder keppra Flaccid Neurogenic bladder from spinal cord surgery chronic ware Chronic back pain post laminectomy syndrome gabapentin, lyrica, oxycodone Chronic Leg weakness due to chronic neuropathy / WC bound s/p surgery for lumber spinal tumor and multiple follow up surgeries from 1979 to 1995/ Meningocele/ pseudomeningocele/ arachnoiditis Cyst drainage from the lower back in 2014 MRI: MRI sacrum w and wo contrast (08/18/20): Large dorsal pseudomeningocele and intraspinal cyst at thoracolumbar junction. There is fluid in T11-T12 disc space which may be fluid extension from the pseudomeningocele and cyst but cannot completely exclude infection. No additional findings to definitively indicate infection. Correlate clinically. 2. No evidence of sacral osteomyelitis in visualized portions of sacrum. Stable nonspecific presacral edema compared to prior CT of abdomen and pelvis. Neuropathic Charcot foot/ MRSA of right foot/ Bilateral heel ulcers s/p debridement Chronic osteomyelitis of right distal fibula Plan/VTE VTE Prophylaxis Ordered?: Yes VS, I&O, 24H, [facility] Vital Signs/I&O Vital Signs Date Time Temp Pulse Resp B/P (MAP) Pulse Ox O2 Delivery O2 Flow Rate FiO2 09/05/20 20:40 18 Room Air 09/05/20 14:56 97.4 74 120/65 (83) 97 09/04/20 21:00 2.0 I&O- Last 24 Hours up to 6 AM 09/05/20 07:00 Intake Total 1690 ml Output Total 1675 ml Balance 15 ml Laboratory Data 24H LABS Laboratory Tests 2 09/05/20 20:32: Bedside Glucose (Misc Panel) 80L Microbiology Microbiology 08/26/20 Blood Culture - Final, Complete NO GROWTH AFTER 5 DAYS 08/26/20 Blood Culture - Final, Complete NO GROWTH AFTER 5 DAYS JESSICA GRIFFITHS MD Sep 05, 2020 20:57
[2020-09-05 22:00] VITALS: BP 124/64
[2020-09-06] MEDS: SODIUM CHLORIDE 0.9% INJ 10 ML SYR IV SCH ×2 (05:14→18:13)
[2020-09-06 06:08] VITALS: BP 122/65
[2020-09-06] MEDS: CHOLESTYRAMINE 4 GM PWD PKT PO SCH ×4 (09:00→21:38)
[2020-09-06] MEDS: PREGABALIN 75 MG CAP(LYRICA) PO SCH ×2 (10:01→21:37)
[2020-09-06] MEDS: PERCOCET 5MG/325MG TAB PO PRN ×2 (10:02→18:12)
[2020-09-06] MEDS: POTASSIUM CHLORIDE 10 MEQ SR TABLET PO SCH ×2 (10:02→21:38)
[2020-09-06] MEDS: levETIRAcetam 250MG TABLET (KEPPRA) PO SCH ×2 (10:02→21:38)
[2020-09-06 14:31] VITALS: BP 119/63
[2020-09-06] MEDS: NYSTATIN 100,000 UNITS/GM TOPICAL PWD 15 GM TOP SCH ×2 (18:11→21:39)
[2020-09-06] MEDS: SANTYL OINT 30GM TOP SCH (18:11)
[2020-09-06] MEDS: ACETAMINOPHEN TAB 650MG DOSE (2X325MG) PO PRN (21:37)
[2020-09-06 22:00] VITALS: BP 110/67
[2020-09-07] MEDS: SODIUM CHLORIDE 0.9% INJ 10 ML SYR IV SCH ×2 (06:35→17:28)
[2020-09-07] MEDS: CHOLESTYRAMINE 4 GM PWD PKT PO SCH ×4 (09:00→20:13)
[2020-09-07] MEDS: PREGABALIN 75 MG CAP(LYRICA) PO SCH ×2 (09:06→20:13)
[2020-09-07] MEDS: levETIRAcetam 250MG TABLET (KEPPRA) PO SCH ×2 (09:07→20:12)
[2020-09-07] MEDS: POTASSIUM CHLORIDE 10 MEQ SR TABLET PO SCH ×2 (09:07→20:12)
[2020-09-07] MEDS: NYSTATIN 100,000 UNITS/GM TOPICAL PWD 15 GM TOP SCH ×2 (09:07→20:15)
[2020-09-07] MEDS: SANTYL OINT 30GM TOP SCH (09:08)
--- NOTE | 2020-09-07 13:56 | IPN ---
PROGRESS NOTE DATE: 09/07/2020 Fan seems to be doing well, except that he is frustrated from being in the hospital for so many days. He has had no nausea or vomiting. He has a high-output colostomy with anywhere from 1-2 liters of output, which is greenish in color. There is not much formed stools in the bag. There is also leakage around the ostomy, so the exact measurement of how much output there is is not perfect. He denies any abdominal pain. His appetite is fair except that he does not like much hospital food. Temperature is 98.2, pulse 84, respirations 19, blood pressure 110/67, oxygen saturation 96% on room air. HEART: Normal S1, S2. No murmurs, rubs, or gallops. LUNGS: Clear. No wheezes, rales, or rhonchi. ABDOMEN: Soft, nontender. No hepatosplenomegaly. Colostomy slightly swollen with a large amount of green fluid in the colostomy bag. EXTREMITIES: Left leg black eschar with a decubitus ulcer, measuring about 6 x 5 cm. No surrounding cellulitis or purulence. Pitting edema 1+ bilaterally. Sacral decubitus ulcer with granulating tissue. There is some fibrinous material at the base of the wound. There is tunneling between 11 and 1, about 2 cm depth. There is no purulence in the wound or surrounding cellulitis. IMPRESSION: 1. Sacral decubitus ulcer with culture positive for extended spectrum beta-lactamase (ESBL), Escherichia (E) coli, and bacteroides. Patient finished 7 days of Invanz after debridement. The wound vacuum-assisted closure (VAC) could not stay in place due to persistent diarrhea. 2. Clostridium (C) difficile diarrhea. Finished 10-day course of Dificid. Patient still has soft stools from his rectum and very little formed stools in his colostomy. This has become challenging to keep his decubitus ulcer clean. 3. Bilateral heel decubitus ulcer Do not seem infected. Being managed conservatively with Hydrofera Blue and Optifoam dressing. PLAN: Infectious disease signing off. Patient has been off antibiotics since September 05. Ertapenem was discontinued, and August 29 Dificid was discontinued. LABORATORY DATA: White count 6.8, hemoglobin 9.9, hemoglobin 31.8, platelets 356. Sodium 144, potassium 3.5, chloride 111, bicarbonate 28, BUN 10, creatinine 0.38, glucose 83, calcium 8, magnesium 1.8. These labs were done on 09/04/2020 [facility]
[2020-09-07 14:00] VITALS: BP 113/63
[2020-09-08] MEDS: SODIUM CHLORIDE 0.9% INJ 10 ML SYR IV SCH ×2 (05:14→16:30)
[2020-09-08 06:00] VITALS: BP 117/67
[2020-09-08 09:00] VITALS: BP 125/70
[2020-09-08] MEDS: NYSTATIN 100,000 UNITS/GM TOPICAL PWD 15 GM TOP SCH ×2 (09:00→20:40)
[2020-09-08] MEDS: CHOLESTYRAMINE 4 GM PWD PKT PO SCH ×4 (09:00→20:40)
[2020-09-08] MEDS: POTASSIUM CHLORIDE 10 MEQ SR TABLET PO SCH ×2 (09:35→20:38)
[2020-09-08] MEDS: levETIRAcetam 250MG TABLET (KEPPRA) PO SCH ×2 (09:36→20:39)
[2020-09-08] MEDS: PREGABALIN 75 MG CAP(LYRICA) PO SCH ×2 (10:27→20:39)
[2020-09-08] MEDS: LOMOTIL 2.5MG/0.025MG TABLET PO SCH ×3 (10:27→20:39)
[2020-09-08] MEDS: SANTYL OINT 30GM TOP SCH (12:36)
[2020-09-08 14:00] VITALS: BP 121/71
[2020-09-09] MEDS: SODIUM CHLORIDE 0.9% INJ 10 ML SYR IV SCH ×2 (05:34→17:44)
[2020-09-09 06:00] VITALS: BP 123/72
[2020-09-09 07:39] LABS: BASO # 0.1 10^3/uL (0.0-0.2); BASO % 0.6 % (0.0-1.0); EOS # 0.5 10^3/uL (0.0-0.5); EOS % 5.8 % (0.0-3.0); HEMATOCRIT 34.2 % (42.0-52.0); HEMOGLOBIN 10.8 g/dl (13.5-17.5); LYMPH # 1.6 10^3/uL (1.5-5.0); LYMPH % 20.8 % (24.0-44.0); MEAN CORPUSCULAR HGB CONC 31.6 g/dl (32.0-36.5); MONO # 0.6 10^3/uL (0.0-0.8); MONO % 7.4 % (2.0-8.0); NEUTROPHILS % 64.9 % (36.0-66.0); PLATELET COUNT, AUTOMATED 365 10^3/uL (150-450); WHITE BLOOD COUNT 7.7 10^3/uL (4.0-10.0)
[2020-09-09 08:01] LABS: BLOOD UREA NITROGEN 18 MG/DL (7-18); CALCIUM LEVEL 9.1 MG/DL (8.8-10.2); CARBON DIOXIDE LEVEL 28 MEQ/L (21-32); CHLORIDE LEVEL 110 MEQ/L (98-107); CREATININE FOR GFR 0.39 MG/DL (0.70-1.30); GLOMERULAR FILTRATION RATE > 60.0 (>42); GLUCOSE, FASTING 78 MG/DL (70-100); POTASSIUM SERUM 4.6 MEQ/L (3.5-5.1); SODIUM LEVEL 142 MEQ/L (136-145)
[2020-09-09] MEDS: LOMOTIL 2.5MG/0.025MG TABLET PO SCH ×2 (08:40→20:19)
[2020-09-09] MEDS: CHOLESTYRAMINE 4 GM PWD PKT PO SCH (08:41)
[2020-09-09] MEDS: NYSTATIN 100,000 UNITS/GM TOPICAL PWD 15 GM TOP SCH (08:41)
[2020-09-09] MEDS: POTASSIUM CHLORIDE 10 MEQ SR TABLET PO SCH ×2 (08:41→20:19)
[2020-09-09] MEDS: levETIRAcetam 250MG TABLET (KEPPRA) PO SCH ×2 (08:41→20:19)
[2020-09-09] MEDS: PREGABALIN 75 MG CAP(LYRICA) PO SCH ×2 (08:41→20:19)
[2020-09-09] MEDS: SANTYL OINT 30GM TOP SCH (08:42)
[2020-09-09] MEDS ORDERED: NYSTATIN 100,000 UNITS/GM TOPICAL PWD 15 GM TOP PRN (09:25)
[2020-09-09] MEDS: PERCOCET 5MG/325MG TAB PO PRN (20:20)
[2020-09-10] MEDS: PREGABALIN 75 MG CAP(LYRICA) PO SCH ×2 (08:35→20:19)
[2020-09-10] MEDS: levETIRAcetam 250MG TABLET (KEPPRA) PO SCH ×2 (08:36→20:20)
[2020-09-10] MEDS: LOMOTIL 2.5MG/0.025MG TABLET PO SCH ×2 (08:37→20:20)
[2020-09-10] MEDS: POTASSIUM CHLORIDE 10 MEQ SR TABLET PO SCH ×2 (08:37→20:20)
[2020-09-10] MEDS: SODIUM CHLORIDE 0.9% INJ 10 ML SYR IV SCH ×2 (08:39→20:21)
[2020-09-10] MEDS: SANTYL OINT 30GM TOP SCH (10:00)
[2020-09-10] MEDS: ACETAMINOPHEN TAB 650MG DOSE (2X325MG) PO PRN (20:30)
[2020-09-11 06:00] VITALS: BP 122/72
[2020-09-11] MEDS: PREGABALIN 75 MG CAP(LYRICA) PO SCH ×2 (08:30→20:35)
[2020-09-11] MEDS: levETIRAcetam 250MG TABLET (KEPPRA) PO SCH ×2 (08:30→20:29)
[2020-09-11] MEDS: SANTYL OINT 30GM TOP SCH (08:30)
[2020-09-11] MEDS: LOMOTIL 2.5MG/0.025MG TABLET PO SCH ×2 (08:30→20:29)
[2020-09-11] MEDS: SODIUM CHLORIDE 0.9% INJ 10 ML SYR IV SCH ×2 (08:31→20:28)
[2020-09-11] MEDS: POTASSIUM CHLORIDE 10 MEQ SR TABLET PO SCH ×3 (08:31→20:35)
[2020-09-11 18:02] LABS: BASO % 0.3 % (0.0-1.0); EOS # 0.5 10^3/uL (0.0-0.5); EOS % 4.4 % (0.0-3.0); HEMATOCRIT 36.2 % (42.0-52.0); HEMOGLOBIN 11.4 g/dl (13.5-17.5); LYMPH # 1.7 10^3/uL (1.5-5.0); LYMPH % 16.3 % (24.0-44.0); MEAN CORPUSCULAR HEMOGLOBIN 30.1 pg (27.0-33.0); MEAN CORPUSCULAR HGB CONC 31.5 g/dl (32.0-36.5); MEAN CORPUSCULAR VOLUME 95.5 fl (80.0-96.0); MONO # 0.5 10^3/uL (0.0-0.8); MONO % 4.5 % (2.0-8.0); NEUTROPHILS # 7.6 10^3/uL (1.5-8.5); NEUTROPHILS % 74.1 % (36.0-66.0); PLATELET COUNT, AUTOMATED 361 10^3/uL (150-450); RED BLOOD COUNT 3.79 10^6/uL (4.30-6.10); WHITE BLOOD COUNT 10.2 10^3/uL (4.0-10.0)
[2020-09-11 18:29] LABS: BLOOD UREA NITROGEN 19 MG/DL (7-18); CALCIUM LEVEL 8.6 MG/DL (8.8-10.2); CARBON DIOXIDE LEVEL 28 MEQ/L (21-32); CHLORIDE LEVEL 109 MEQ/L (98-107); CREATININE FOR GFR 0.49 MG/DL (0.70-1.30); GLOMERULAR FILTRATION RATE > 60.0 (>42); GLUCOSE, FASTING 127 MG/DL (70-100); MAGNESIUM LEVEL 2.1 MG/DL (1.8-2.4); POTASSIUM SERUM 4.4 MEQ/L (3.5-5.1); SODIUM LEVEL 142 MEQ/L (136-145)
[2020-09-11] MEDS: ACETAMINOPHEN TAB 650MG DOSE (2X325MG) PO PRN (20:29)
[2020-09-12 06:00] VITALS: BP 118/70
[2020-09-12 09:37] LABS: BASO % 0.5 % (0.0-1.0); EOS # 0.6 10^3/uL (0.0-0.5); EOS % 7.1 % (0.0-3.0); HEMATOCRIT 35.6 % (42.0-52.0); HEMOGLOBIN 11.1 g/dl (13.5-17.5); LYMPH # 1.1 10^3/uL (1.5-5.0); LYMPH % 13.5 % (24.0-44.0); MEAN CORPUSCULAR HGB CONC 31.2 g/dl (32.0-36.5); MEAN CORPUSCULAR VOLUME 96.2 fl (80.0-96.0); MONO # 0.4 10^3/uL (0.0-0.8); MONO % 5.3 % (2.0-8.0); NEUTROPHILS # 5.7 10^3/uL (1.5-8.5); NEUTROPHILS % 73.2 % (36.0-66.0); PLATELET COUNT, AUTOMATED 370 10^3/uL (150-450); WHITE BLOOD COUNT 7.8 10^3/uL (4.0-10.0)
[2020-09-12] MEDS: LOMOTIL 2.5MG/0.025MG TABLET PO SCH ×2 (09:43→20:09)
[2020-09-12] MEDS: POTASSIUM CHLORIDE 10 MEQ SR TABLET PO SCH ×2 (09:43→20:09)
[2020-09-12] MEDS: levETIRAcetam 250MG TABLET (KEPPRA) PO SCH ×2 (09:43→20:08)
[2020-09-12] MEDS: PREGABALIN 75 MG CAP(LYRICA) PO SCH ×2 (09:43→20:08)
[2020-09-12] MEDS: SODIUM CHLORIDE 0.9% INJ 10 ML SYR IV SCH ×2 (09:45→20:09)
[2020-09-12 09:56] LABS: BLOOD UREA NITROGEN 16 MG/DL (7-18); CALCIUM LEVEL 8.7 MG/DL (8.8-10.2); CARBON DIOXIDE LEVEL 28 MEQ/L (21-32); CHLORIDE LEVEL 111 MEQ/L (98-107); CREATININE FOR GFR 0.45 MG/DL (0.70-1.30); GLOMERULAR FILTRATION RATE > 60.0 (>42); GLUCOSE, FASTING 107 MG/DL (70-100); POTASSIUM SERUM 4.3 MEQ/L (3.5-5.1); SODIUM LEVEL 143 MEQ/L (136-145)
[2020-09-12] MEDS: ACETAMINOPHEN TAB 650MG DOSE (2X325MG) PO PRN (20:08)
[2020-09-13 06:00] VITALS: BP 118/70
[2020-09-13 08:50] VITALS: BP 115/65
[2020-09-13] MEDS: LOMOTIL 2.5MG/0.025MG TABLET PO SCH ×2 (09:28→19:47)
[2020-09-13] MEDS: POTASSIUM CHLORIDE 10 MEQ SR TABLET PO SCH ×2 (09:29→19:47)
[2020-09-13] MEDS: SODIUM CHLORIDE 0.9% INJ 10 ML SYR IV SCH ×2 (09:30→19:47)
[2020-09-13] MEDS: levETIRAcetam 250MG TABLET (KEPPRA) PO SCH ×2 (09:30→19:48)
[2020-09-13] MEDS: PREGABALIN 75 MG CAP(LYRICA) PO SCH ×2 (09:52→19:47)
--- NOTE | 2020-09-13 15:30 | IPNPDOC ---
Subjective General Date Seen: Sep 12, 2020 Subject Chief Complaint/History The patient is a 75-year-old male admitted with a reason for visit of Uti,Weakness, Sacral Decubitus,Spinal Tumor. Patient seen at the bedside. No new complains. Current Medications Current Medications Current Medications Medications (Trade) Dose Ordered Sig/Mark Route PRN Reason Start Time Stop Time Status Last Admin Dose Admin Acetaminophen (Tylenol Tab) 650 mg Q4H PRN PO PAIN OR FEVER 08/14/20 01:25 09/12/20 20:08 Al Hydrox/Mg Hydrox/Simethicone (Mylanta) 30 ml DAILY PRN PO DYSPEPSIA 08/14/20 01:25 Cefepime HCl 2 gm/ Dextrose 50 ml @ 100 mls/hr Q12H IV 08/14/20 03:00 08/19/20 15:52 DC 08/19/20 15:26 Cholestyramine Resin (Questran) 4 gm QID PO 09/04/20 09:00 09/09/20 09:26 DC 09/06/20 21:38 Collagenase (SantyL) APPLY TO SACRUM DAILY TOP 08/22/20 09:00 08/24/20 12:51 DC 08/23/20 09:12 Collagenase (SantyL) APPLY TO SACRUM DAILYPRN PRN TOP SOILED WOUND DRESSING 08/22/20 14:10 08/24/20 12:51 DC Collagenase (SantyL) To sacrum. DAILY TOP 09/03/20 09:00 09/12/20 08:50 DC 09/11/20 08:30 Collagenase (SantyL) With bowel movements. [facility] PRN TOP DIARRHEA 09/03/20 10:30 Dextrose (Dextrose 50%) 25 ml ASDIRECTED PRN IV SEE LABEL COMMENTS 08/28/20 15:00 Dextrose/Sodium Chloride 1,000 ml @ 75 mls/hr [id number] IV 08/28/20 15:00 09/04/20 08:10 DC 09/03/20 21:17 Dextrose/Sodium Chloride 1,000 ml @ 75 mls/hr [id number] IV 09/04/20 21:15 09/05/20 20:53 DC 09/05/20 10:11 Diatrizoate Meglum/ Diatrizoate Sod (Gastrografin) 10 ml Q30M PO 08/28/20 11:15 08/28/20 11:46 DC 08/28/20 11:34 Diphenoxylate HCl/ Atropine (Lomotil 2.5mg/ 0.025mg) 1 ea BID PO 09/09/20 21:00 09/13/20 09:28 Diphenoxylate HCl/ Atropine (Lomotil 2.5mg/ 0.025mg) 1 ea BID PO 09/03/20 09:00 09/04/20 08:23 DC 09/03/20 21:15 Diphenoxylate HCl/ Atropine (Lomotil 2.5mg/ 0.025mg) 1 ea TID PO 09/04/20 09:00 09/09/20 09:26 DC 09/09/20 08:40 Docusate Sodium (Colace) 100 mg BID PO 08/14/20 09:00 08/19/20 15:44 DC 08/17/20 09:43 Enoxaparin Sodium (Lovenox) 40 mg DAILY SC 08/14/20 09:00 08/28/20 14:42 DC 08/28/20 09:36 Ertapenem 1 gm/ Sodium Chloride 50 ml @ 100 mls/hr Q24H IV 08/30/20 16:00 09/05/20 20:53 DC 09/05/20 16:36 Fentanyl Citrate (Sublimaze) 25 mcg Q5MP PRN IV PAIN LEVEL 5-10 08/24/20 13:05 08/24/20 13:16 DC 08/24/20 13:15 Fentanyl Citrate (Sublimaze) 25 mcg Q5MP PRN IV PAIN LEVEL 5-10 08/28/20 20:00 08/28/20 21:00 DC Fidaxomicin (Dificid) 200 mg BID PO 08/19/20 21:00 08/29/20 09:01 DC 08/28/20 22:42 Furosemide (Lasix) 40 mg DAILY PO 08/14/20 09:00 09/04/20 08:10 DC 09/03/20 10:11 Gabapentin (Neurontin) 600 mg BID PO 08/14/20 09:00 Hold Glucagon (Glucagon) 1 mg ASDIRECTED PRN SC SEE LABEL COMMENTS 08/28/20 15:00 Glucose (Glucose) 16 GM ASDIRECTED PRN PO SEE LABEL COMMENTS 08/28/20 15:00 Heparin Sodium (Heparin (Flush)) 200 units ASDIRECTED PRN IV SEE LABEL COMMENTS 08/24/20 16:20 Heparin Sodium (Heparin (Flush)) 200 units BID IV 09/10/20 09:00 09/13/20 09:30 Heparin Sodium (Heparin (Flush)) 200 units PICC IV 08/24/20 18:00 09/09/20 19:22 DC 09/09/20 17:44 Home Med (Med Rec Complete!) ASDIRECTED XX 08/14/20 07:25 08/14/20 07:23 DC Hydromorphone HCl (Dilaudid) 0.2 mg Q5MP PRN IV PAIN LEVEL 4-7 08/24/20 13:05 08/24/20 14:05 DC 08/24/20 13:42 Lactated Ringer's 1,000 ml @ 100 mls/hr Q10H IV 08/24/20 13:05 08/24/20 14:05 DC Lactated Ringer's 1,000 ml @ 100 mls/hr Q10H IV 08/28/20 20:00 08/28/20 21:00 DC Levetiracetam (Keppra) 750 mg DAILY PO 08/14/20 09:00 09/13/20 09:30 Levetiracetam (Keppra) 1,000 mg QHS PO 08/14/20 21:00 09/12/20 20:08 Magnesium Hydroxide (Milk Of Magnesia) 30 ml DAILY PRN PO CONSTIPATION 08/14/20 01:25 08/15/20 01:48 Metoclopramide HCl (REGLAN INJection) 10 mg Q6HP PRN IV NAUSEA OR VOMITING 08/28/20 20:00 08/28/20 21:00 DC Morphine Sulfate (Morphine Sulfate Inj) 2 mg Q3H PRN IV SEVERE PAIN (PS 8-10) 08/30/20 19:00 09/09/20 17:54 DC 08/31/20 15:34 Nystatin (Mycostatin Powder, Nystop) groin BID TOP 08/26/20 21:00 09/09/20 09:27 DC 09/07/20 09:07 Nystatin (Mycostatin Powder, Nystop) groin BID PRN TOP RASH/ITCHING 09/09/20 09:25 09/13/20 11:36 Ondansetron HCl (ZOFRAN INJection) 4 mg Q4HP PRN IV NAUSEA OR VOMITING 08/24/20 13:05 08/24/20 14:05 DC Ondansetron HCl (ZOFRAN INJection) 4 mg Q4HP PRN IV NAUSEA OR VOMITING 08/28/20 20:00 08/28/20 21:00 DC Oxycodone HCl (Roxicodone, Oxyir) 5 mg ASDIRECTED PRN PO PAIN LEVEL 1-4 08/24/20 13:05 08/24/20 14:05 DC 08/24/20 13:26 Oxycodone/ Acetaminophen (Percocet 5mg/ 325mg Tablet) 1 tab Q6HP PRN PO MODERATE PAIN (PS 5-7) 08/24/20 12:45 09/09/20 20:20 Polyethylene Glycol (Miralax) 1 pkt BID PRN PO CONSTIPATION 08/14/20 22:15 08/28/20 18:55 DC 08/15/20 01:48 Potassium Chloride (Micro-K Extencaps) 20 meq BID PO 09/12/20 09:00 09/13/20 09:29 Potassium Chloride (Micro-K Extencaps) 20 meq DAILY PO 08/14/20 09:00 09/03/20 09:28 DC 09/02/20 09:59 Potassium Chloride (Micro-K Extencaps) 40 meq BID PO 09/03/20 09:00 09/12/20 07:57 DC 09/11/20 20:35 Pregabalin (Lyrica) 150 mg BID PO 08/14/20 09:00 09/13/20 09:52 Psyllium Hydrophilic Mucilloid (Metamucil) 1 pkt BID PO 09/01/20 09:00 09/04/20 08:23 DC 09/02/20 09:58 Sodium Chloride (Saline Lock Flush) 2 ml ASDIRECTED PRN IV SEE LABEL COMMENTS 08/14/20 10:50 08/26/20 14:24 DC Sodium Chloride (Saline Lock Flush) 2 ml SLF IV 08/14/20 14:00 08/26/20 14:24 DC 08/26/20 06:26 Sodium Chloride (Saline Lock Flush) 10 ml ASDIRECTED PRN IV SEE LABEL COMMENTS 08/24/20 16:20 09/04/20 22:06 Sodium Chloride (Saline Lock Flush) 10 ml BID IV 09/10/20 09:00 09/13/20 09:30 Sodium Chloride (Saline Lock Flush) 10 ml PICC IV 08/24/20 18:00 09/09/20 19:22 DC 09/09/20 17:44 Vancomycin HCl (First-Vancomycin 50(Firvanq)- 250mg/5ml) 125 mg Q6H PO 08/16/20 18:00 08/19/20 15:52 DC 08/19/20 12:01 Vancomycin HCl 500 mg/Dextrose 110 ml @ 110 mls/hr Q12H IV 08/14/20 14:00 08/15/20 14:13 DC 08/15/20 02:05 Vancomycin HCl 750 mg/IV Miscellaneous Supplies 1 each/ Sodium Chloride 275 ml @ 275 mls/hr Q12H IV 08/14/20 14:00 08/15/20 14:13 DC 08/15/20 03:19 Vancomycin HCl 750 mg/IV Miscellaneous Supplies 1 each/ Sodium Chloride 275 ml @ 275 mls/hr Q24H IV 08/16/20 16:00 08/23/20 23:59 DC 08/23/20 17:01 Vancomycin HCl 750 mg/IV Miscellaneous Supplies 1 each/ Sodium Chloride 275 ml @ 275 mls/hr Q24H IV 08/16/20 17:00 08/23/20 23:59 DC 08/23/20 18:54 Vancomycin HCl 1000 mg/IV Miscellaneous Supplies 1 each/ Sodium Chloride 270 ml @ 270 mls/hr Q12H IV 08/14/20 01:55 Cancel Vancomycin HCl 1000 mg/IV Miscellaneous Supplies 1 each/ Sodium Chloride 270 ml @ 270 mls/hr Q12H IV 08/15/20 14:00 08/16/20 15:28 DC 08/16/20 02:17 Allergies Coded Allergies: linezolid (Verified Allergy, Unknown, 04/23/19) Objective Physical Examination Examination GENERAL APPEARANCE:Patient seen, laying in bed, awake, alert, and oriented. Comfortable, in no acute distress. SKIN: Warm and moist. Sacral wound stage 4. Minimal yellow slough. 5x7cm1.5cm depth. No stool in the wound. LUNGS: Clear to auscultation bilaterally. No wheezing appreciated. HEART: No chest wall abnormalities. Regular rate and rhythm with no murmurs appreciated. ABDOMEN: Abdomen is soft, non-tender, non-distended. Colostomy functioning. EXTREMITIES: No edema identified. No calf tenderness. Vital Signs Vital Signs Date Time Temp Pulse Resp B/P (MAP) Pulse Ox O2 Delivery O2 Flow Rate FiO2 09/13/20 08:50 97.7 71 18 115/65 (82) 96 Room Air 09/11/20 05:11 2.0 I&Os I&O- Last 24 Hours up to 6 AM 09/13/20 06:00 Intake Total 1200 ml Output Total 1375 ml Balance -175 ml Impression Stage 4 sacral wound. Improving. Wound vac at 125 mm Hg. Watt foam. Mook bid Off loading. Plan / VTE VTE Prophylaxis Ordered?: Yes CHRISTOPHER HERNANDEZ DO Sep 13, 2020 15:30
[2020-09-13] MEDS: PERCOCET 5MG/325MG TAB PO PRN (19:51)
[2020-09-14 06:45] VITALS: BP 122/64
[2020-09-14 08:12] LABS: BASO # 0.1 10^3/uL (0.0-0.2); BASO % 0.7 % (0.0-1.0); EOS # 0.5 10^3/uL (0.0-0.5); EOS % 6.8 % (0.0-3.0); HEMATOCRIT 37.2 % (42.0-52.0); HEMOGLOBIN 11.3 g/dl (13.5-17.5); LYMPH # 1.4 10^3/uL (1.5-5.0); LYMPH % 18.9 % (24.0-44.0); MEAN CORPUSCULAR HEMOGLOBIN 29.1 pg (27.0-33.0); MEAN CORPUSCULAR HGB CONC 30.4 g/dl (32.0-36.5); MEAN CORPUSCULAR VOLUME 95.9 fl (80.0-96.0); MONO # 0.5 10^3/uL (0.0-0.8); MONO % 6.2 % (2.0-8.0); NEUTROPHILS % 67.1 % (36.0-66.0); PLATELET COUNT, AUTOMATED 343 10^3/uL (150-450); RED BLOOD COUNT 3.88 10^6/uL (4.30-6.10); WHITE BLOOD COUNT 7.4 10^3/uL (4.0-10.0)
[2020-09-14 08:33] LABS: BLOOD UREA NITROGEN 16 MG/DL (7-18); CALCIUM LEVEL 8.4 MG/DL (8.8-10.2); CARBON DIOXIDE LEVEL 28 MEQ/L (21-32); CHLORIDE LEVEL 110 MEQ/L (98-107); CREATININE FOR GFR 0.44 MG/DL (0.70-1.30); GLOMERULAR FILTRATION RATE > 60.0 (>42); GLUCOSE, FASTING 73 MG/DL (70-100); POTASSIUM SERUM 4.4 MEQ/L (3.5-5.1); SODIUM LEVEL 142 MEQ/L (136-145)
[2020-09-14] MEDS: PREGABALIN 75 MG CAP(LYRICA) PO SCH ×2 (08:57→21:31)
[2020-09-14] MEDS: POTASSIUM CHLORIDE 10 MEQ SR TABLET PO SCH ×2 (08:58→21:32)
[2020-09-14] MEDS: levETIRAcetam 250MG TABLET (KEPPRA) PO SCH ×2 (08:58→21:31)
[2020-09-14] MEDS: LOMOTIL 2.5MG/0.025MG TABLET PO SCH ×2 (08:58→21:31)
[2020-09-14] MEDS: SODIUM CHLORIDE 0.9% INJ 10 ML SYR IV SCH ×2 (08:59→21:32)
[2020-09-14] MEDS: PERCOCET 5MG/325MG TAB PO PRN (21:33)
[2020-09-14 22:00] VITALS: BP 114/62
[2020-09-15 06:00] VITALS: BP 118/65
[2020-09-15] MEDS: LOMOTIL 2.5MG/0.025MG TABLET PO SCH ×2 (09:05→21:10)
[2020-09-15] MEDS: POTASSIUM CHLORIDE 10 MEQ SR TABLET PO SCH ×2 (09:06→21:10)
[2020-09-15] MEDS: PREGABALIN 75 MG CAP(LYRICA) PO SCH ×2 (09:06→21:10)
[2020-09-15] MEDS: levETIRAcetam 250MG TABLET (KEPPRA) PO SCH ×2 (09:06→21:10)
[2020-09-15] MEDS: SODIUM CHLORIDE 0.9% INJ 10 ML SYR IV SCH ×2 (09:07→21:11)
[2020-09-15 20:00] VITALS: BP 109/63
[2020-09-15] MEDS: PERCOCET 5MG/325MG TAB PO PRN (21:12)
[2020-09-16 06:00] VITALS: BP 110/63
[2020-09-16 08:21] LABS: BASO # 0.1 10^3/uL (0.0-0.2); BASO % 0.3 % (0.0-1.0); EOS # 0.2 10^3/uL (0.0-0.5); EOS % 1.6 % (0.0-3.0); HEMATOCRIT 37.6 % (42.0-52.0); HEMOGLOBIN 11.9 g/dl (13.5-17.5); LYMPH # 1.2 10^3/uL (1.5-5.0); LYMPH % 8.4 % (24.0-44.0); MEAN CORPUSCULAR HEMOGLOBIN 30.1 pg (27.0-33.0); MEAN CORPUSCULAR HGB CONC 31.6 g/dl (32.0-36.5); MEAN CORPUSCULAR VOLUME 95.2 fl (80.0-96.0); MONO # 0.8 10^3/uL (0.0-0.8); MONO % 5.3 % (2.0-8.0); NEUTROPHILS # 12.3 10^3/uL (1.5-8.5); NEUTROPHILS % 83.9 % (36.0-66.0); PLATELET COUNT, AUTOMATED 348 10^3/uL (150-450); RED BLOOD COUNT 3.95 10^6/uL (4.30-6.10); WHITE BLOOD COUNT 14.6 10^3/uL (4.0-10.0)
[2020-09-16] MEDS: POTASSIUM CHLORIDE 10 MEQ SR TABLET PO SCH ×2 (08:38→21:42)
[2020-09-16] MEDS: levETIRAcetam 250MG TABLET (KEPPRA) PO SCH ×2 (08:39→21:42)
[2020-09-16] MEDS: LOMOTIL 2.5MG/0.025MG TABLET PO SCH ×2 (08:39→21:42)
[2020-09-16] MEDS: SODIUM CHLORIDE 0.9% INJ 10 ML SYR IV SCH ×2 (08:39→21:43)
[2020-09-16] MEDS: PREGABALIN 75 MG CAP(LYRICA) PO SCH ×2 (08:39→21:43)
[2020-09-16 08:52] LABS: BLOOD UREA NITROGEN 14 MG/DL (7-18); CALCIUM LEVEL 8.4 MG/DL (8.8-10.2); CARBON DIOXIDE LEVEL 29 MEQ/L (21-32); CHLORIDE LEVEL 108 MEQ/L (98-107); CREATININE FOR GFR 0.37 MG/DL (0.70-1.30); GLOMERULAR FILTRATION RATE > 60.0 (>42); GLUCOSE, FASTING 83 MG/DL (70-100); POTASSIUM SERUM 4.1 MEQ/L (3.5-5.1); SODIUM LEVEL 142 MEQ/L (136-145)
--- NOTE | 2020-09-16 18:42 | IPNPDOC ---
Date Seen The patient was seen on 09/16/20. Progress Note SUBJECTIVE: patient was seen and examined at bedside this morning. Febrile overnight, Tmax 101.8, now resolved. Patient is alert and oriented x 3. Denies acute events overnight. Does not report fevers/chills, chest pain, palpitations, shortness of breath or cough. He reports his stoma functioning well, without leak. OBJECTIVE PHYSICAL EXAMINATION: VITAL SIGNS: Please see below. GENERAL: comfortable, alert x 3 HEENT: PERRLA, EOMI CARDIOVASCULAR: RRR, normal S1, S2, no rubs, no murmurs RESPIRATORY: lungs CTAB, no wheeze ABDOMINAL: ostomy bag has soft brown stool, no bleeding Integumentary: sacral wound looks much improved, wound size diminished, granulation tissue increased at wound base. Wound vac changed today. L heel wound eschar in place. EXTREMITIES: trace edema NEUROLOGICAL: paraplegia, CN2-12 intact PSYCHOLOGICAL: calm, cooperative, appropriate LABORATORY DATA, IMAGING STUDIES, MICROBIOLOGY: Please see below. DVT prophylaxis ordered?: Y ASSESSMENT AND PLAN: 75 yo M with a hx of functional paraplegia, WC bound s/p lumbar spinal tumor resection 1979, followed by multiple subsequent back surgery (thoracic laminectomy, lumbar fusion), DM2, charcot joint, R and L heel wounds, as well as a large sacral wound. Admitted s/p fall for a large infected sacral decubitus, along with ESBL and e faecalis UTI. Copious diarrhea c diff positive colitis complicating healing of sacral decubitius. S/p abx therapy, s/p diverting colostomy with subsequent prolonged ileus. PROBLEMS: Infected Stage IV sacral decubitus status post debridement, diverting colostomy and Wound-Vac managed by Plastic Surgery, now on daily dressing changes. Wound vac changed M, W, F. next change 09/17/20 Cultures grew ESBL and Anaerobes Fever fever 101.8 overnight 09/16/20 WBC on 09/17 24 multiple sources of possible infection check CXR, UA, blood cx (drawn from R picc site as well) patient asymptomatic, fevr resolved Examined patient with Dr. Powell Started on IV meropenem and vanco if blood cultures (incl PICC) negative, ok to DC abx cultures from 09/16 prelim negative, per Dr. Powell ok to DC PICC C. Diff colitis completed 10 days of fidaxomicin divertic colostomy, output reduced repeat C diff from ostomy new fever and leukocytosis on 09/17 possible attributed to repeat c diff Persistent diarrhea likely post obstructive after the prolonged ileus. started on questran, imodium output seems to be deminished Fall at home which was mechanical MRI was negative for an acute CVA or bleed, back to baseline mentation. Enterococcus UTI with chronic indwelling ware status post Vancomycin, on contact precautions. Free air in the abdomen with no source of perforated viscus found in exploratory laparoscopy on 08/28/2020, started on Ertapenem by ID on 08/30 due to concerns of perforation finished 7 days. History of seizure disorder keppra Flaccid Neurogenic bladder from spinal cord surgery chronic ware Chronic back pain post laminectomy syndrome gabapentin, lyrica, oxycodone Chronic Leg weakness due to chronic neuropathy / WC bound s/p surgery for lumber spinal tumor and multiple follow up surgeries from 1979 to 1995/ Meningocele/ pseudomeningocele/ arachnoiditis Cyst drainage from the lower back in 2014 MRI: MRI sacrum w and wo contrast (08/18/20): Large dorsal pseudomeningocele and intraspinal cyst at thoracolumbar junction. There is fluid in T11-T12 disc space which may be fluid extension from the pseudomeningocele and cyst but cannot completely exclude infection. No additional findings to definitively indicate infection. Correlate clinically. 2. No evidence of sacral osteomyelitis in visualized portions of sacrum. Stable nonspecific presacral edema compared to prior CT of abdomen and pelvis. Neuropathic Charcot foot/ MRSA of right foot/ Bilateral heel ulcers s/p debridement Chronic osteomyelitis of right distal fibula VS, I&O, 24H, Fishbone Vital Signs/I&O Vital Signs Date Time Temp Pulse Resp B/P (MAP) Pulse Ox O2 Delivery O2 Flow Rate FiO2 09/16/20 06:00 97.4 85 17 110/63 (79) 91 Room Air 09/11/20 05:11 2.0 I&O- Last 24 Hours up to 6 AM 09/16/20 06:00 Intake Total 720 ml Output Total 675 ml Balance 45 ml Laboratory Data 24H LABS Laboratory Tests 2 09/16/20 07:52: Immature Granulocyte % (Auto) 0.5, Neutrophils (%) (Auto) 83.9H, Lymphocytes (%) (Auto) 8.4L, Monocytes (%) (Auto) 5.3, Eosinophils (%) (Auto) 1.6, Basophils (%) (Auto) 0.3, Neutrophils # (Auto) 12.3H, Lymphocytes # (Auto) 1.2L, Monocytes # (Auto) 0.8, Eosinophils # (Auto) 0.2, Basophils # (Auto) 0.1, Nucleated Red Blood Cells % (auto) 0.0, Anion Gap 5L, Glomerular Filtration Rate > 60.0, Calcium Level 8.4L CBC/BMP Laboratory Tests 09/16/20 07:52 AUDREY RIVERA MD Sep 16, 2020 18:42
[2020-09-16] MEDS: ACETAMINOPHEN TAB 650MG DOSE (2X325MG) PO PRN (18:47)
[2020-09-16 22:36] LABS: BILIRUBIN, URINE MANUAL NEGATIVE (NEGATIVE); GLUCOSE, URINE (UA) MANUAL NEGATIVE (NEGATIVE); KETONE, URINE MANUAL NEGATIVE (NEGATIVE); UROBILINOGEN, URINE MANUAL NORMAL (NORMAL)
[2020-09-16 22:48] LABS: TRANSITIONAL EPI CELLS, URINE SMALL AMOUNT /hpf
[2020-09-16 22:57] LABS: AMORPHOUS SEDIMENT, URINE URATES (NEGATIVE)
[2020-09-16 22:58] LABS: BACTERIA, URINE MOD AMOUNT
[2020-09-16 22:59] LABS: YEAST, URINE MOD AMOUNT
[2020-09-16 23:00] LABS: HYALINE CAST, URINE NONE SEEN /lpf (0-1)
[2020-09-16 23:02] LABS: MUCUS, URINE MOD AMOUNT (NEGATIVE)
[2020-09-16 23:03] LABS: SQUAMOUS EPITHELIAL CELL URINE NONE SEEN /hpf (SMALL AMT)
[2020-09-17 06:00] VITALS: BP 113/63
[2020-09-17] MEDS ORDERED: ISOVUE-370 76% 100ML VIAL As Ordered ONE (07:36)
--- NOTE | 2020-09-17 07:47 | REP ---
INDICATION: FEVER, LEUKOCYTOSIS COMPARISON: 08/27/2020 TECHNIQUE: Portable AP view of the chest FINDINGS: Right PICC line in stable position with tip in the SVC. Mediastinum and cardiac silhouette are normal. Very subtle linear opacities in the bilateral mid/lower lung zones (left greater than right) again noted and similar to prior examination. No new acute consolidation, effusion, or pneumothorax. Skeletal structures are intact. IMPRESSION: No acute cardiopulmonary process appreciated. <Electronically signed by Thad Kenney > 09/17/20 0714
[2020-09-17 07:52] LABS: HEMATOCRIT 36.1 % (42.0-52.0); HEMOGLOBIN 11.4 g/dl (13.5-17.5); MEAN CORPUSCULAR HEMOGLOBIN 29.8 pg (27.0-33.0); MEAN CORPUSCULAR HGB CONC 31.6 g/dl (32.0-36.5); MEAN CORPUSCULAR VOLUME 94.3 fl (80.0-96.0); PLATELET COUNT, AUTOMATED 328 10^3/uL (150-450); RED BLOOD COUNT 3.83 10^6/uL (4.30-6.10); WHITE BLOOD COUNT 23.1 10^3/uL (4.0-10.0)
[2020-09-17 08:22] LABS: BLOOD UREA NITROGEN 15 MG/DL (7-18); CALCIUM LEVEL 8.8 MG/DL (8.8-10.2); CARBON DIOXIDE LEVEL 25 MEQ/L (21-32); CHLORIDE LEVEL 105 MEQ/L (98-107); CREATININE FOR GFR 0.42 MG/DL (0.70-1.30); GLOMERULAR FILTRATION RATE > 60.0 (>42); GLUCOSE, FASTING 69 MG/DL (70-100); POTASSIUM SERUM 4.1 MEQ/L (3.5-5.1); SODIUM LEVEL 139 MEQ/L (136-145)
[2020-09-17 08:23] VITALS: BP 116/60
--- NOTE | 2020-09-17 08:37 | REP ---
INDICATION: r/o PE. COMPARISON: No comparison chest CT study. Comparison is made with portable chest x-ray from 09/16/2020.. TECHNIQUE: Contrast dose: 75 ML of Isovue [address] technique: Helical scanning is acquired and overlapping 1.5 mm and contiguous 3 mm axial images are reformatted. In addition, maximum intensity projection and multiplanar re-formation images are generated in sagittal and coronal imaging projections. FINDINGS: There is good opacification in the pulmonary arterial tree. There is no evidence of vessel cut off or filling defect to suggest pulmonary embolus. Homogeneous opacity is seen in the thoracic aorta. There is no evidence of aneurysm or dissection. Lung window settings demonstrate an area of linear platelike atelectasis in the left lower lobe. There is an area of ground-glass opacity in the posterior segment of the right upper lobe suggesting possible early infiltrate. Some minimal linear fibrosis is seen in the right lower lobe. In addition, there is a noncalcified ill-defined 8 mm pulmonary nodule in the right lower lobe. This projects on page 52 of 107 in series 402 of today's study. This appears to be new. There are 2 calcified granulomas in the left lower lobe. In the upper abdomen, normal adrenal glands are seen. There is a 4.0 cm cyst in the left kidney. There are small right hilar and precarinal lymph nodes. No definite adenopathy. 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 This meningocele contains drainage catheter material. The process is not completely included in the imaging field of view but has been noted previously. The superficial component of the fluid collection was reported at 4.7 x 3.3 cm December 07, 2014. Today these dimensions are 6.5 x 4.4 cm, somewhat larger. No acute bony abnormality is seen. IMPRESSION: No CT evidence of pulmonary embolus. 8 mm noncalcified pulmonary nodule in the right lower lobe and subtle alveolar infiltrate posterior segment right upper lobe merit follow-up. Left renal cyst and thoracolumbar spine meningocele are incidental findings as above <Electronically signed by Jacobo Padilla > 09/17/20 0834
[2020-09-17] MEDS ORDERED: VANCOMYCIN HCL 1,000 MG, VIAL MATE ADAPTER 1 EACH in NS 250 ML IV SCH (09:35)
[2020-09-17] MEDS: ENOXAPARIN 40MG/0.4ML SYRINGE (J1650 PER 10MG) SC SCH (09:36)
[2020-09-17] MEDS: SODIUM CHLORIDE 0.9% INJ 10 ML SYR IV SCH ×2 (09:37→21:52)
[2020-09-17] MEDS: LOMOTIL 2.5MG/0.025MG TABLET PO SCH (09:37)
[2020-09-17] MEDS: POTASSIUM CHLORIDE 10 MEQ SR TABLET PO SCH ×2 (09:38→21:51)
[2020-09-17] MEDS: PREGABALIN 75 MG CAP(LYRICA) PO SCH ×2 (09:39→21:51)
[2020-09-17] MEDS: levETIRAcetam 250MG TABLET (KEPPRA) PO SCH ×2 (09:40→21:51)
[2020-09-17] MEDS: MEROPENEM INJ 1 GM in IV 1 EA IV SCH ×2 (11:49→17:46)
[2020-09-17] MEDS ORDERED: VANCOMYCIN HCL 1,000 MG, VIAL MATE ADAPTER 1 EACH in NS 250 ML IV ONE ×2 (14:00→15:00)
[2020-09-17 20:05] LABS: CLOSTRIDIUM DIFFICILE PCR NEGATIVE (NEGATIVE)
[2020-09-17 21:00] VITALS: BP 107/58
[2020-09-17] MEDS: ACETAMINOPHEN TAB 650MG DOSE (2X325MG) PO PRN (21:51)
[2020-09-18] MEDS: MEROPENEM INJ 1 GM in IV 1 EA IV SCH ×3 (03:57→18:49)
[2020-09-18 06:00] VITALS: BP 108/59
[2020-09-18 06:59] LABS: BASO % 0.2 % (0.0-1.0); EOS # 0.3 10^3/uL (0.0-0.5); EOS % 1.7 % (0.0-3.0); HEMATOCRIT 35.8 % (42.0-52.0); HEMOGLOBIN 11.4 g/dl (13.5-17.5); LYMPH # 1.2 10^3/uL (1.5-5.0); LYMPH % 6.3 % (24.0-44.0); MEAN CORPUSCULAR HEMOGLOBIN 30.2 pg (27.0-33.0); MEAN CORPUSCULAR HGB CONC 31.8 g/dl (32.0-36.5); MEAN CORPUSCULAR VOLUME 94.7 fl (80.0-96.0); MONO # 0.9 10^3/uL (0.0-0.8); MONO % 4.6 % (2.0-8.0); NEUTROPHILS # 16.6 10^3/uL (1.5-8.5); NEUTROPHILS % 86.5 % (36.0-66.0); PLATELET COUNT, AUTOMATED 333 10^3/uL (150-450); RED BLOOD COUNT 3.78 10^6/uL (4.30-6.10); WHITE BLOOD COUNT 19.2 10^3/uL (4.0-10.0)
[2020-09-18 07:31] LABS: BLOOD UREA NITROGEN 13 MG/DL (7-18); CALCIUM LEVEL 8.4 MG/DL (8.8-10.2); CARBON DIOXIDE LEVEL 28 MEQ/L (21-32); CHLORIDE LEVEL 107 MEQ/L (98-107); CREATININE FOR GFR 0.36 MG/DL (0.70-1.30); GLOMERULAR FILTRATION RATE > 60.0 (>42); GLUCOSE, FASTING 87 MG/DL (70-100); POTASSIUM SERUM 4.1 MEQ/L (3.5-5.1); SODIUM LEVEL 140 MEQ/L (136-145)
--- NOTE | 2020-09-18 09:06 | IPN ---
PROGRESS NOTE DATE: 09/17/2020 SUBJECTIVE: Fan has no complaints today except for a decreased appetite. He states he does not eat well because the food is not great. He also complains of early satiety. He eats only half a sandwich for lunch. He had a fever up to 101.8 that has resolved. He has a PICC line in his right arm that does not seem to be infected. There is no pain, redness, or swelling. He has no cough or shortness of breath. The patient has been on Lomotil twice a day for about a week and his stools have been watery, but thicker. He denies any abdominal pain, nausea, or vomiting. OBJECTIVE: VITAL SIGNS: Temperature 97.6, pulse 97, respirations 18, blood pressure 116/60, O2 saturation 94% on room air. HEART: Normal S1, S2. No murmurs, rubs, or gallops. LUNGS: Clear. No wheezes, rales, or rhonchi. ABDOMEN: Colostomy right lower quadrant with watery yellow stools in the bag. Colostomy is well-healed. SKIN: Decubitus ulcer sacral area healing very well with granulation tissue. No periwound cellulitis or erythema. No purulent discharge. Left healing decubitus ulcer with an eschar measuring about 6 x 4 cm with no surrounding cellulitis or purulence. Right arm PICC line with no redness or tenderness. LABORATORY DATA: White count 23.1, hemoglobin 11.4, hematocrit 36.1, platelets 328,000. Sodium 139, potassium 4.1, chloride 105, bicarb 25, BUN 15, creatinine 0.42, glucose 69, calcium 8.8. Stool for C. diff was sent is pending. Stool for C. diff was positive on 08/14. MEDICATIONS: The patient was on Dificid for a total of 10 days that was discontinued on 08/28. Invanz from 08/30 discontinued on 09/05. Prior to that, the patient was on Cefepime and IV vancomycin from 08/14 to 08/19. The patient was started today on IV vancomycin and meropenem pending results of cultures. MICROBIOLOGY: Urine cultures on 09/16 pending. Blood cultures two sets on 09/17 pending. Two sets of blood cultures from 09/16 are no growth so far. IMPRESSION: Recurrent fever with severe leukocytosis with a white count up to 23,000. Decubitus ulcer in the sacral area well-healed does not seen to be the source of infection. Peripherally inserted central catheter (PICC) line infection. Blood cultures x24 hours have been negative so this is unlikely as well. I am concerned that he has recurrent Clostridium difficile, but his stools are not that watery and loose because he has been on Lomotil twice a day. The patient had finished a course of Dificid on 08/28 and was on Invanz from the to the , which makes C. difficile the most likely source of infection. PLAN: Send stool for C. diff and if positive, discontinue IV vancomycin and meropenem and start p.o. fidaxomicin 200 mg p.o. b.i.d. If the patient does not need a PICC line, please discontinue and use a peripheral IV. I do not see any reason why he should still have a PICC line. Continue wound VAC and offloading from left heel. Case has been discussed with Dr. Rodriguez. [facility]ITALDavid
[2020-09-18] MEDS: levETIRAcetam 250MG TABLET (KEPPRA) PO SCH ×2 (10:03→21:00)
[2020-09-18] MEDS: ENOXAPARIN 40MG/0.4ML SYRINGE (J1650 PER 10MG) SC SCH (10:03)
[2020-09-18] MEDS: POTASSIUM CHLORIDE 10 MEQ SR TABLET PO SCH ×2 (10:04→21:00)
[2020-09-18] MEDS: PREGABALIN 75 MG CAP(LYRICA) PO SCH ×2 (10:05→21:00)
[2020-09-18] MEDS: SODIUM CHLORIDE 0.9% INJ 10 ML SYR IV SCH ×2 (10:07→20:59)
[2020-09-18] MEDS ORDERED: VANCOMYCIN HCL 750 MG, VIAL MATE ADAPTER 1 EACH in NS 250 ML IV SCH ×2 (14:00→15:00)
[2020-09-18 14:49] VITALS: BP 106/60
--- NOTE | 2020-09-18 20:41 | IPNPDOC ---
Date Seen The patient was seen on 09/18/20. Progress Note SUBJECTIVE: WBC improving from 23K to 19K on vancomycin and meropenem- vancomycin d/rashad today. Very hard stick and unfortunately will need to keep PICC line if he needs continued IV abx, not suspecting line infection as line bCx neg. Afebrile for 48 hrs. ? PNA on CTA chest. He denies chest pain, palpitations, shortness of breath or cough. OBJECTIVE: PHYSICAL EXAMINATION: VITAL SIGNS: Please see below. GENERAL: comfortable, alert x 3 HEENT: PERRLA, EOMI CARDIOVASCULAR: RRR, normal S1, S2, no rubs, no murmurs RESPIRATORY: lungs CTAB, no wheeze ABDOMINAL: ostomy bag has soft brown stool, no bleeding Integumentary: sacral wound looks much improved, wound size diminished, granulation tissue increased at wound base. Wound vac changed today. L heel wound eschar in place. EXTREMITIES: trace edema NEUROLOGICAL: paraplegia, CN2-12 intact PSYCHOLOGICAL: calm, cooperative, appropriate LABORATORY DATA: Please see below IMAGING STUDIES: CTA chest: No CT evidence of pulmonary embolus. 8 mm noncalcified pulmonary nodule in the right lower lobe and subtle alveolar infiltrate posterior segment right upper lobe merit follow-up. Left renal cyst and thoracolumbar spine meningocele are incidental findings as above MICROBIOLOGY: Repeat BCx from PICC line- NG UCx pending C. diff repeat: neg MRSA + on 08/14/20 Sputum culture ordered ASSESSMENT AND PLAN: 75 yo M with a hx of functional paraplegia, WC bound s/p lumbar spinal tumor resection 1979, followed by multiple subsequent back surgery (thoracic laminectomy, lumbar fusion), DM2, charcot joint, R and L heel wounds, as well as a large sacral wound. Admitted s/p fall for a large infected sacral decubitus, along with ESBL and e faecalis UTI. Copious diarrhea c diff positive colitis complicating healing of sacral decubitius. S/p abx therapy, s/p diverting colostomy with subsequent prolonged ileus. PROBLEMS: Leukocytosis could be 2/2 to worsening infection with Stage IV sacral decubitus, ? PNA on CTA chest -WBC improved to 19K on Vancomycin, meropenem. Afebrile since 09/15/20 -Unlikely line infection, as BCx from PICC neg -Repeat C. diff neg. -UA and sputum culture ordered/pending -See treatment of individual infections below -ID consulted and following closely Infected Stage IV sacral decubitus -Status post debridement, diverting colostomy and Wound-Vac managed by Plastic Surgery, now on daily dressing changes. Wound vac changed M, W, F. Last changed 09/17/20 -Cultures grew ESBL and Anaerobes -Remains only on Meropenem currently per ID, vancomycin stopped ? HCAP -CTA chest above -Denies SOB, cough -MRSA + on 09/14/20 but vancomycin d/rashad today by ID -C/w meropenem currently (started 09/17/20) -Hoping for sputum culture to be collected, daily labs C. Diff colitis, treated -Repeat C. diff testing neg -Completed 10 days of fidaxomicin -Divertimg colostomy, output reduced -Monitor closely, probiotics while on abx Persistent diarrhea likely post obstructive after the prolonged ileus. -c/w questran, imodium -Output decreased Fall at home which was mechanical -MRI was negative for an acute CVA or bleed, back to baseline mentation. Enterococcus UTI with chronic indwelling ware -status post Vancomycin tx, on contact precautions. Free air in the abdomen with no source of perforated viscus found in exploratory laparoscopy on 08/28/2020, -Finished 7 days Ertapenem by ID on 08/30 due to concerns of perforation History of seizure disorder -keppra Flaccid Neurogenic bladder 2/2 to spinal cord surgery -Chronic ware Chronic back pain hx of post-laminectomy syndrome -gabapentin, lyrica, oxycodone Chronic Leg weakness due to chronic neuropathy / WC bound -s/p surgery for lumber spinal tumor and multiple follow up surgeries from 1979 to 1995/ Meningocele/ pseudomeningocele/ arachnoiditis -Cyst drainage from the lower back in 2014 -MRI: MRI sacrum w and wo contrast (08/18/20): -Large dorsal pseudomeningocele and intraspinal cyst at thoracolumbar junction. There is fluid in T11-T12 disc space which may be fluid extension from the pseudomeningocele and cyst but cannot completely exclude infection. No additional findings to definitively indicate infection. 2. No evidence of sacral osteomyelitis in visualized portions of sacrum. Stable onspecific presacral edema compared to prior CT of abdomen and pelvis. Neuropathic Charcot foot/ MRSA of right foot/ Bilateral heel ulcers -s/p debridement Chronic osteomyelitis of right distal fibula -Stable DVT px -Enoxaparin daily DISPOSITION: TB with ID to discuss current infection status. Refusing NH/rehab facility. Goal is home. Currently inpatient status, switched from [facility] on 09/17/20 VS, I&O, 24H, Fishbone Vital Signs/I&O Vital Signs Date Time Temp Pulse Resp B/P (MAP) Pulse Ox O2 Delivery O2 Flow Rate FiO2 09/18/20 14:49 97.3 79 16 106/60 (75) 98 Room Air I&O- Last 24 Hours up to 6 AM 09/18/20 06:00 Intake Total 510 ml Output Total 350 ml Balance 160 ml Laboratory Data 24H LABS Laboratory Tests 2 09/18/20 06:48: Immature Granulocyte % (Auto) 0.7, Neutrophils (%) (Auto) 86.5H, Lymphocytes (%) (Auto) 6.3L, Monocytes (%) (Auto) 4.6, Eosinophils (%) (Auto) 1.7, Basophils (%) (Auto) 0.2, Neutrophils # (Auto) 16.6H, Lymphocytes # (Auto) 1.2L, Monocytes # (Auto) 0.9H, Eosinophils # (Auto) 0.3, Basophils # (Auto) 0.0, Nucleated Red Blood Cells % (auto) 0.0, Anion Gap 5L, Glomerular Filtration Rate > 60.0, Calcium Level 8.4L CBC/BMP Laboratory Tests 09/18/20 06:48 Microbiology Microbiology 09/17/20 Blood Culture - Preliminary, Resulted No growth after 24 hours . All specim... 09/17/20 Blood Culture - Preliminary, Resulted No growth after 24 hours . All specim... 09/16/20 Urine Culture, Received Pending 09/16/20 Blood Culture - Preliminary, Resulted No Growth after 48 hours. All Specime... 09/16/20 Blood Culture - Preliminary, Resulted No Growth after 48 hours. All Specime... Current Medications Current Medications Medications (Trade) Dose Ordered Sig/Mark Route PRN Reason Start Time Stop Time Status Last Admin Dose Admin Acetaminophen (Tylenol Tab) 650 mg Q4H PRN PO PAIN OR FEVER 08/14/20 01:25 09/17/20 21:51 Al Hydrox/Mg Hydrox/Simethicone (Mylanta) 30 ml DAILY PRN PO DYSPEPSIA 08/14/20 01:25 Cefepime HCl 2 gm/ Dextrose 50 ml @ 100 mls/hr Q12H IV 08/14/20 03:00 08/19/20 15:52 DC 08/19/20 15:26 Cholestyramine Resin (Questran) 4 gm QID PO 09/04/20 09:00 09/09/20 09:26 DC 09/06/20 21:38 Collagenase (SantyL) APPLY TO SACRUM DAILY TOP 08/22/20 09:00 08/24/20 12:51 DC 08/23/20 09:12 Collagenase (SantyL) APPLY TO SACRUM DAILYPRN PRN TOP SOILED WOUND DRESSING 08/22/20 14:10 08/24/20 12:51 DC Collagenase (SantyL) To sacrum. DAILY TOP 09/03/20 09:00 09/12/20 08:50 DC 09/11/20 08:30 Collagenase (SantyL) With bowel movements. [facility] PRN TOP DIARRHEA 09/03/20 10:30 Dextrose (Dextrose 50%) 25 ml ASDIRECTED PRN IV SEE LABEL COMMENTS 08/28/20 15:00 Dextrose/Sodium Chloride 1,000 ml @ 75 mls/hr [id number] IV 08/28/20 15:00 09/04/20 08:10 DC 09/03/20 21:17 Dextrose/Sodium Chloride 1,000 ml @ 75 mls/hr [id number] IV 09/04/20 21:15 09/05/20 20:53 DC 09/05/20 10:11 Diatrizoate Meglum/ Diatrizoate Sod (Gastrografin) 10 ml Q30M PO 08/28/20 11:15 08/28/20 11:46 DC 08/28/20 11:34 Diphenoxylate HCl/ Atropine (Lomotil 2.5mg/ 0.025mg) 1 ea BID PO 09/09/20 21:00 09/17/20 19:13 DC 09/17/20 09:37 Diphenoxylate HCl/ Atropine (Lomotil 2.5mg/ 0.025mg) 1 ea BID PO 09/03/20 09:00 09/04/20 08:23 DC 09/03/20 21:15 Diphenoxylate HCl/ Atropine (Lomotil 2.5mg/ 0.025mg) 1 ea TID PO 09/04/20 09:00 09/09/20 09:26 DC 09/09/20 08:40 Docusate Sodium (Colace) 100 mg BID PO 08/14/20 09:00 08/19/20 15:44 DC 08/17/20 09:43 Enoxaparin Sodium (Lovenox) 40 mg DAILY SC 08/14/20 09:00 08/28/20 14:42 DC 08/28/20 09:36 Enoxaparin Sodium (Lovenox) 40 mg DAILY SC 09/17/20 09:00 09/18/20 10:03 Ertapenem 1 gm/ Sodium Chloride 50 ml @ 100 mls/hr Q24H IV 08/30/20 16:00 09/05/20 20:53 DC 09/05/20 16:36 Fentanyl Citrate (Sublimaze) 25 mcg Q5MP PRN IV PAIN LEVEL 5-10 08/24/20 13:05 08/24/20 13:16 DC 08/24/20 13:15 Fentanyl Citrate (Sublimaze) 25 mcg Q5MP PRN IV PAIN LEVEL 5-10 08/28/20 20:00 08/28/20 21:00 DC Fidaxomicin (Dificid) 200 mg BID PO 08/19/20 21:00 08/29/20 09:01 DC 08/28/20 22:42 Furosemide (Lasix) 40 mg DAILY PO 08/14/20 09:00 09/04/20 08:10 DC 09/03/20 10:11 Gabapentin (Neurontin) 600 mg BID PO 08/14/20 09:00 Hold Glucagon (Glucagon) 1 mg ASDIRECTED PRN SC SEE LABEL COMMENTS 08/28/20 15:00 Glucose (Glucose) 16 GM ASDIRECTED PRN PO SEE LABEL COMMENTS 08/28/20 15:00 Heparin Sodium (Heparin (Flush)) 200 units ASDIRECTED PRN IV SEE LABEL COMMENTS 08/24/20 16:20 Heparin Sodium (Heparin (Flush)) 200 units BID IV 09/10/20 09:00 09/18/20 10:06 Heparin Sodium (Heparin (Flush)) 200 units PICC IV 08/24/20 18:00 09/09/20 19:22 DC 09/09/20 17:44 Home Med (Med Rec Complete!) ASDIRECTED XX 08/14/20 07:25 08/14/20 07:23 DC Hydromorphone HCl (Dilaudid) 0.2 mg Q5MP PRN IV PAIN LEVEL 4-7 08/24/20 13:05 08/24/20 14:05 DC 08/24/20 13:42 Lactated Ringer's 1,000 ml @ 100 mls/hr Q10H IV 08/24/20 13:05 08/24/20 14:05 DC Lactated Ringer's 1,000 ml @ 100 mls/hr Q10H IV 08/28/20 20:00 08/28/20 21:00 DC Levetiracetam (Keppra) 750 mg DAILY PO 08/14/20 09:00 09/18/20 10:03 Levetiracetam (Keppra) 1,000 mg QHS PO 08/14/20 21:00 09/17/20 21:51 Magnesium Hydroxide (Milk Of Magnesia) 30 ml DAILY PRN PO CONSTIPATION 08/14/20 01:25 08/15/20 01:48 Meropenem 1 gm/IV Miscellaneous Supplies 50 ml @ 100 mls/hr Q8H IV 09/17/20 11:00 09/18/20 18:49 Metoclopramide HCl (REGLAN INJection) 10 mg Q6HP PRN IV NAUSEA OR VOMITING 08/28/20 20:00 08/28/20 21:00 DC Morphine Sulfate (Morphine Sulfate Inj) 2 mg Q3H PRN IV SEVERE PAIN (PS 8-10) 08/30/20 19:00 09/09/20 17:54 DC 08/31/20 15:34 Nystatin (Mycostatin Powder, Nystop) groin BID TOP 08/26/20 21:00 09/09/20 09:27 DC 09/07/20 09:07 Nystatin (Mycostatin Powder, Nystop) groin BID PRN TOP RASH/ITCHING 09/09/20 09:25 09/13/20 11:36 Ondansetron HCl (ZOFRAN INJection) 4 mg Q4HP PRN IV NAUSEA OR VOMITING 08/24/20 13:05 08/24/20 14:05 DC Ondansetron HCl (ZOFRAN INJection) 4 mg Q4HP PRN IV NAUSEA OR VOMITING 08/28/20 20:00 08/28/20 21:00 DC Oxycodone HCl (Roxicodone, Oxyir) 5 mg ASDIRECTED PRN PO PAIN LEVEL 1-4 08/24/20 13:05 08/24/20 14:05 DC 08/24/20 13:26 Oxycodone/ Acetaminophen (Percocet 5mg/ 325mg Tablet) 1 tab Q6HP PRN PO MODERATE PAIN (PS 5-7) 08/24/20 12:45 09/15/20 21:12 Polyethylene Glycol (Miralax) 1 pkt BID PRN PO CONSTIPATION 08/14/20 22:15 08/28/20 18:55 DC 08/15/20 01:48 Potassium Chloride (Micro-K Extencaps) 20 meq BID PO 09/12/20 09:00 09/18/20 10:04 Potassium Chloride (Micro-K Extencaps) 20 meq DAILY PO 08/14/20 09:00 09/03/20 09:28 DC 09/02/20 09:59 Potassium Chloride (Micro-K Extencaps) 40 meq BID PO 09/03/20 09:00 09/12/20 07:57 DC 09/11/20 20:35 Pregabalin (Lyrica) 150 mg BID PO 08/14/20 09:00 09/18/20 10:05 Psyllium Hydrophilic Mucilloid (Metamucil) 1 pkt BID PO 09/01/20 09:00 09/04/20 08:23 DC 09/02/20 09:58 Sodium Chloride (Saline Lock Flush) 2 ml ASDIRECTED PRN IV SEE LABEL COMMENTS 08/14/20 10:50 08/26/20 14:24 DC Sodium Chloride (Saline Lock Flush) 2 ml SLF IV 08/14/20 14:00 08/26/20 14:24 DC 08/26/20 06:26 Sodium Chloride (Saline Lock Flush) 10 ml ASDIRECTED PRN IV SEE LABEL COMMENTS 08/24/20 16:20 09/04/20 22:06 Sodium Chloride (Saline Lock Flush) 10 ml BID IV 09/10/20 09:00 09/18/20 10:07 Sodium Chloride (Saline Lock Flush) 10 ml PICC IV 08/24/20 18:00 09/09/20 19:22 DC 09/09/20 17:44 Vancomycin HCl (First-Vancomycin 50(Firvanq)- 250mg/5ml) 125 mg Q6H PO 08/16/20 18:00 08/19/20 15:52 DC 08/19/20 12:01 Vancomycin HCl 500 mg/Dextrose 110 ml @ 110 mls/hr Q12H IV 08/14/20 14:00 08/15/20 14:13 DC 08/15/20 02:05 Vancomycin HCl 750 mg/IV Miscellaneous Supplies 1 each/ Sodium Chloride 275 ml @ 275 mls/hr Q12H IV 08/14/20 14:00 08/15/20 14:13 DC 08/15/20 03:19 Vancomycin HCl 750 mg/IV Miscellaneous Supplies 1 each/ Sodium Chloride 275 ml @ 275 mls/hr Q24H IV 08/16/20 16:00 08/23/20 23:59 DC 08/23/20 17:01 Vancomycin HCl 750 mg/IV Miscellaneous Supplies 1 each/ Sodium Chloride 275 ml @ 275 mls/hr Q24H IV 08/16/20 17:00 08/23/20 23:59 DC 08/23/20 18:54 Vancomycin HCl 750 mg/IV Miscellaneous Supplies 1 each/ Sodium Chloride 275 ml @ 275 mls/hr Q24H IV 09/18/20 14:00 09/18/20 15:17 DC Vancomycin HCl 750 mg/IV Miscellaneous Supplies 1 each/ Sodium Chloride 275 ml @ 275 mls/hr Q24H IV 09/18/20 15:00 09/18/20 15:17 DC Vancomycin HCl 1000 mg/IV Miscellaneous Supplies 1 each/ Sodium Chloride 270 ml @ 270 mls/hr Q12H IV 08/14/20 01:55 Cancel Vancomycin HCl 1000 mg/IV Miscellaneous Supplies 1 each/ Sodium Chloride 270 ml @ 270 mls/hr Q12H IV 08/15/20 14:00 08/16/20 15:28 DC 08/16/20 02:17 Vancomycin HCl 1000 mg/IV Miscellaneous Supplies 1 each/ Sodium Chloride 270 ml @ 270 mls/hr Q12H IV 09/17/20 09:35 09/17/20 12:28 DC Allergies Coded Allergies: linezolid (Verified Allergy, Unknown, 04/23/19) Chayo Chen MD Sep 18, 2020 20:41
[2020-09-18] MEDS: ACETAMINOPHEN TAB 650MG DOSE (2X325MG) PO PRN (21:00)
[2020-09-18 22:00] VITALS: BP 108/62
[2020-09-19] MEDS: MEROPENEM INJ 1 GM in IV 1 EA IV SCH ×3 (03:50→19:05)
[2020-09-19 06:00] VITALS: BP 108/66
[2020-09-19] MEDS: PREGABALIN 75 MG CAP(LYRICA) PO SCH ×2 (08:54→20:57)
[2020-09-19] MEDS: VANCOMYCIN ORAL SOL 250MG/5ML ORAL SYRINGE PO SCH ×2 (08:54→20:58)
[2020-09-19] MEDS: levETIRAcetam 250MG TABLET (KEPPRA) PO SCH ×2 (08:54→20:59)
[2020-09-19] MEDS: LACTOBACILLUS ACIDOPHILUS CAP (BACID) PO SCH ×2 (08:54→19:04)
[2020-09-19] MEDS: POTASSIUM CHLORIDE 10 MEQ SR TABLET PO SCH ×2 (08:54→20:59)
[2020-09-19] MEDS: SODIUM CHLORIDE 0.9% INJ 10 ML SYR IV SCH ×2 (08:55→20:59)
[2020-09-19] MEDS: ENOXAPARIN 40MG/0.4ML SYRINGE (J1650 PER 10MG) SC SCH (08:55)
[2020-09-19 09:55] LABS: HEMOGLOBIN 11.1 g/dl (13.5-17.5); MEAN CORPUSCULAR HEMOGLOBIN 29.7 pg (27.0-33.0); MEAN CORPUSCULAR HGB CONC 31.7 g/dl (32.0-36.5); MEAN CORPUSCULAR VOLUME 93.6 fl (80.0-96.0); PLATELET COUNT, AUTOMATED 361 10^3/uL (150-450); RED BLOOD COUNT 3.74 10^6/uL (4.30-6.10); WHITE BLOOD COUNT 7.4 10^3/uL (4.0-10.0)
[2020-09-19 10:25] LABS: ALBUMIN 2.2 GM/DL (3.2-5.2); ALT/SGPT 20 U/L (12-78); BILIRUBIN,TOTAL 0.2 MG/DL (0.2-1.0); BLOOD UREA NITROGEN 11 MG/DL (7-18); CALCIUM LEVEL 8.7 MG/DL (8.8-10.2); CARBON DIOXIDE LEVEL 30 MEQ/L (21-32); CHLORIDE LEVEL 107 MEQ/L (98-107); CREATININE FOR GFR 0.42 MG/DL (0.70-1.30); GLOMERULAR FILTRATION RATE > 60.0 (>42); GLUCOSE, FASTING 107 MG/DL (70-100); SODIUM LEVEL 140 MEQ/L (136-145); TOTAL PROTEIN 6.9 GM/DL (6.4-8.2)
--- NOTE | 2020-09-19 10:43 | IPN ---
PROGRESS NOTE DATE: 09/18/2020 SUBJECTIVE: Fan is doing well. He is resting this afternoon, has no complaints. OBJECTIVE: VITAL SIGNS: Temperature 97.3, pulse 79, respirations 16, blood pressure 106/60, O2 saturation 98% on room air. INTAKE: 1,460 today. OUTPUT: 1900. He has a Rowley catheter. HEART: Normal S1, S2. No murmurs, rubs or gallops. LUNGS: Lungs are clear. No wheezes, rales or rhonchi. ABDOMEN: He has no abdominal pain, no fevers or chills. Soft and nontender. Stool in the colostomy bag is watery liquid, light brown color. EXTREMITIES: +1 ankle edema and left heel decubitus ulcer with black eschar with no evidence of infection. Sacral decubitus stage IV, improving with no evidence of infection. LABS: White count 19.2 down from 23.1 yesterday, hemoglobin 11.4, hematocrit 35.8, platelets 333,000, 86% neutrophils, 6% lymphocytes, 12% monocytes. Sodium 140, potassium 4.1, chloride 107, bicarb 28, BUN 13, creatinine 0.36, glucose 87, calcium 8.4. Microbiology: Blood cultures four sets have been no growth, two from 09/16, two from 09/17. Urine culture is pending but it has at least 2 gram negative rods that need to be identified. Stool for C. difficile was negative on 09/17, positive on 08/14. IMPRESSION: 1. Fever and Leukocytosis with catheter-associated urinary tract infection, white count has improved to 19.2 on IV Meropenem and Vancomycin. Since his culture has only gram negative rods Vancomycin will be discontinued. There is no evidence of line infection. 3. History of C. difficile colitis without recurrence. Since the patient will be on broad spectrum antibiotics for the next seven days, we will add Vancomycin preemptively to decrease the risk of recurrent C. difficile at a dose of 125 mg by mouth twice daily for 14 days. 4. Sacral decubitus ulcer doing very well with wound V.A.C. No evidence of infection. 5. Healed decubitus ulcer, left, doing well with offloading and dressing changes. PLAN: Discontinue IV Vancomycin. Continue Meropenem 1 gm IV every 8 hours, deescalate based on results of urine culture. If there is a choice of by mouth antibiotics, antibiotics could be switched to by mouth and his PICC line could be removed. Add by mouth Vancomycin 125 by mouth twice a day to decrease risk of recurrent C. difficile. MTDD
[2020-09-19 14:00] VITALS: BP 111/66
--- NOTE | 2020-09-19 19:10 | IPNPDOC ---
Date Seen The patient was seen on 09/19/20. Progress Note SUBJECTIVE: WBC wnl today, Ucx still not resulted done from 09/16/20- f/u result. No diarrhea overnight, afebrile, no acute complaints. OBJECTIVE: PHYSICAL EXAMINATION: VITAL SIGNS: Please see below. GENERAL: NAD, alert x 3 HEENT: PERRLA, EOMI CARDIOVASCULAR: RRR, normal S1, S2, no rubs, no murmurs RESPIRATORY: lungs CTAB, no wheeze ABDOMINAL: ostomy bag has soft brown stool, no bleeding Integumentary: sacral wound improved, wound size diminished, granulation tissue present at wound base. Wound vac in place. L heel wound eschar EXTREMITIES: trace edema NEUROLOGICAL: paraplegia, CN2-12 intact PSYCHOLOGICAL: calm, cooperative, appropriate LABORATORY DATA: Please see below IMAGING STUDIES: CTA chest: No CT evidence of pulmonary embolus. 8 mm noncalcified pulmonary nodule in the right lower lobe and subtle alveolar infiltrate posterior segment right upper lobe merit follow-up. Left renal cyst and thoracolumbar spine meningocele are incidental findings as above MICROBIOLOGY: Repeat BCx from PICC line- NG UCx pending from 09/16/20- according to micro dept, should be preliminarily resulted 09/20/20 C. diff repeat: neg MRSA + on 08/14/20 Sputum culture 09/18/20: ASSESSMENT AND PLAN: 75 yo M with a hx of functional paraplegia, WC bound s/p lumbar spinal tumor resection 1979, followed by multiple subsequent back surgery (thoracic laminectomy, lumbar fusion), DM2, charcot joint, R and L heel wounds, as well as a large sacral wound. Admitted s/p fall for a large infected sacral decubitus, along with ESBL and e faecalis UTI. Copious diarrhea c diff positive colitis complicating healing of sacral decubitius. S/p abx therapy, s/p diverting colostomy with subsequent prolonged ileus. PROBLEMS: Leukocytosis likely 2/2 to CAUTI, ? PNA on CTA chest -WBC now wnl, afebrile since 09/15/20 -Unlikely Stage IV sacral decubitus as cause -Not line infection, as BCx from PICC neg -Repeat C. diff neg. -Repeat UCx pending- should be resulted in AM -Sputum culture ordered but not collected -See treatment of individual infections below -ID consulted and following closely Enterococcus UTI with chronic indwelling ware, CAUTI- possible source of recurrent leukocytosis -status post Vancomycin tx, on contact precautions. -Currently on Meropenem- deescalate when sensitivities from new UCX return -Daily CBC, F/u repeat UCX/sensitivity results Stage IV sacral decubitus -Status post debridement, diverting colostomy and Wound-Vac managed by Plastic Surgery, now on daily dressing changes. Wound vac changed M, W, F. Last changed 09/17/20 -Cultures grew ESBL and Anaerobes -appears clean and unlikely source of leukocytosis -c/w abx above ? HCAP -CTA chest above -Denies SOB, cough -MRSA + on 09/14/20 but vancomycin d/rashad today by ID -C/w meropenem currently (started 09/17/20) -Sputum not able to be collected -c/w treatment above C. Diff colitis, treated -Repeat C. diff testing neg -Completed 10 days of fidaxomicin -Diverting colostomy, output reduced -Monitor closely, probiotics , PO vanco added for prophylaxis as he remains on IV abx Diarrhea likely post obstructive after the prolonged ileus-improving -c/w questran, imodium -Output decreased Fall at home which was mechanical -MRI was negative for an acute CVA or bleed, back to baseline mentation. Free air in the abdomen with no source of perforated viscus found in exploratory laparoscopy on 08/28/2020, -Finished 7 days Ertapenem by ID on 08/30 due to concerns of perforation History of seizure disorder -keppra Flaccid Neurogenic bladder 2/2 to spinal cord surgery -Chronic ware Chronic back pain hx of post-laminectomy syndrome -gabapentin, lyrica, oxycodone Chronic Leg weakness due to chronic neuropathy / WC bound -s/p surgery for lumber spinal tumor and multiple follow up surgeries from 1979 to 1995/ Meningocele/ pseudomeningocele/ arachnoiditis -Cyst drainage from the lower back in 2014 -MRI: MRI sacrum w and wo contrast (08/18/20): -Large dorsal pseudomeningocele and intraspinal cyst at thoracolumbar junction. There is fluid in T11-T12 disc space which may be fluid extension from the pseudomeningocele and cyst but cannot completely exclude infection. No ad ditional findings to definitively indicate infection. 2. No evidence of sacral osteomyelitis in visualized portions of sacrum. Stable Neuropathic Charcot foot/ MRSA of right foot/ Bilateral heel ulcers -s/p debridement Chronic osteomyelitis of right distal fibula -Stable DVT px -Enoxaparin daily DISPOSITION: Switching back to [facility]C status today. Refusing NH/rehab facility. Goal is home. VS, I&O, 24H, Fishbone Vital Signs/I&O Vital Signs Date Time Temp Pulse Resp B/P (MAP) Pulse Ox O2 Delivery O2 Flow Rate FiO2 09/19/20 14:00 96.8 78 18 111/66 (81) 96 Room Air I&O- Last 24 Hours up to 6 AM 09/19/20 06:00 Intake Total 1310 ml Output Total 2290 ml Balance -980 ml Laboratory Data 24H LABS Laboratory Tests 2 09/19/20 09:39: Nucleated Red Blood Cells % (auto) 0.0, Anion Gap 3L, Glomerular Filtration Rate > 60.0, Calcium Level 8.7L, Total Bilirubin 0.2, Aspartate Amino Transf (AST/SGOT) 13, Alanine Aminotransferase (ALT/SGPT) 20, Alkaline Phosphatase 108, Total Protein 6.9, Albumin 2.2L, Albumin/Globulin Ratio 0.5 09/19/20 12:48: Vancomycin Level Trough 5.7L CBC/BMP Laboratory Tests 09/19/20 09:39 Microbiology Microbiology 09/17/20 Blood Culture - Preliminary, Resulted No Growth after 48 hours. All Specime... 09/17/20 Blood Culture - Preliminary, Resulted No Growth after 48 hours. All Specime... 09/16/20 Urine Culture, Received Pending 09/16/20 Blood Culture - Preliminary, Resulted No Growth after 48 hours. All Specime... 09/16/20 Blood Culture - Preliminary, Resulted No Growth after 48 hours. All Specime... Current Medications Current Medications Medications (Trade) Dose Ordered Sig/Mark Route PRN Reason Start Time Stop Time Status Last Admin Dose Admin Acetaminophen (Tylenol Tab) 650 mg Q4H PRN PO PAIN OR FEVER 08/14/20 01:25 09/18/20 21:00 Al Hydrox/Mg Hydrox/Simethicone (Mylanta) 30 ml DAILY PRN PO DYSPEPSIA 08/14/20 01:25 Cefepime HCl 2 gm/ Dextrose 50 ml @ 100 mls/hr Q12H IV 08/14/20 03:00 08/19/20 15:52 DC 08/19/20 15:26 Cholestyramine Resin (Questran) 4 gm QID PO 09/04/20 09:00 09/09/20 09:26 DC 09/06/20 21:38 Collagenase (SantyL) APPLY TO SACRUM DAILY TOP 08/22/20 09:00 08/24/20 12:51 DC 08/23/20 09:12 Collagenase (SantyL) APPLY TO SACRUM DAILYPRN PRN TOP SOILED WOUND DRESSING 08/22/20 14:10 08/24/20 12:51 DC Collagenase (SantyL) To sacrum. DAILY TOP 09/03/20 09:00 09/12/20 08:50 DC 09/11/20 08:30 Collagenase (SantyL) With bowel movements. [facility] PRN TOP DIARRHEA 09/03/20 10:30 Dextrose (Dextrose 50%) 25 ml ASDIRECTED PRN IV SEE LABEL COMMENTS 08/28/20 15:00 Dextrose/Sodium Chloride 1,000 ml @ 75 mls/hr [id number] IV 08/28/20 15:00 09/04/20 08:10 DC 09/03/20 21:17 Dextrose/Sodium Chloride 1,000 ml @ 75 mls/hr [id number] IV 09/04/20 21:15 09/05/20 20:53 DC 09/05/20 10:11 Diatrizoate Meglum/ Diatrizoate Sod (Gastrografin) 10 ml Q30M PO 08/28/20 11:15 08/28/20 11:46 DC 08/28/20 11:34 Diphenoxylate HCl/ Atropine (Lomotil 2.5mg/ 0.025mg) 1 ea BID PO 09/09/20 21:00 09/17/20 19:13 DC 09/17/20 09:37 Diphenoxylate HCl/ Atropine (Lomotil 2.5mg/ 0.025mg) 1 ea BID PO 09/03/20 09:00 09/04/20 08:23 DC 09/03/20 21:15 Diphenoxylate HCl/ Atropine (Lomotil 2.5mg/ 0.025mg) 1 ea TID PO 09/04/20 09:00 09/09/20 09:26 DC 09/09/20 08:40 Docusate Sodium (Colace) 100 mg BID PO 08/14/20 09:00 08/19/20 15:44 DC 08/17/20 09:43 Enoxaparin Sodium (Lovenox) 40 mg DAILY SC 08/14/20 09:00 08/28/20 14:42 DC 08/28/20 09:36 Enoxaparin Sodium (Lovenox) 40 mg DAILY SC 09/17/20 09:00 09/19/20 08:55 Ertapenem 1 gm/ Sodium Chloride 50 ml @ 100 mls/hr Q24H IV 08/30/20 16:00 09/05/20 20:53 DC 09/05/20 16:36 Fentanyl Citrate (Sublimaze) 25 mcg Q5MP PRN IV PAIN LEVEL 5-10 08/24/20 13:05 08/24/20 13:16 DC 08/24/20 13:15 Fentanyl Citrate (Sublimaze) 25 mcg Q5MP PRN IV PAIN LEVEL 5-10 08/28/20 20:00 08/28/20 21:00 DC Fidaxomicin (Dificid) 200 mg BID PO 08/19/20 21:00 08/29/20 09:01 DC 08/28/20 22:42 Furosemide (Lasix) 40 mg DAILY PO 08/14/20 09:00 09/04/20 08:10 DC 09/03/20 10:11 Gabapentin (Neurontin) 600 mg BID PO 08/14/20 09:00 Hold Glucagon (Glucagon) 1 mg ASDIRECTED PRN SC SEE LABEL COMMENTS 08/28/20 15:00 Glucose (Glucose) 16 GM ASDIRECTED PRN PO SEE LABEL COMMENTS 08/28/20 15:00 Heparin Sodium (Heparin (Flush)) 200 units ASDIRECTED PRN IV SEE LABEL COMMENTS 08/24/20 16:20 Heparin Sodium (Heparin (Flush)) 200 units BID IV 09/10/20 09:00 09/19/20 08:55 Heparin Sodium (Heparin (Flush)) 200 units PICC IV 08/24/20 18:00 09/09/20 19:22 DC 09/09/20 17:44 Home Med (Med Rec Complete!) ASDIRECTED XX 08/14/20 07:25 08/14/20 07:23 DC Hydromorphone HCl (Dilaudid) 0.2 mg Q5MP PRN IV PAIN LEVEL 4-7 08/24/20 13:05 08/24/20 14:05 DC 08/24/20 13:42 Lactated Ringer's 1,000 ml @ 100 mls/hr Q10H IV 08/24/20 13:05 08/24/20 14:05 DC Lactated Ringer's 1,000 ml @ 100 mls/hr Q10H IV 08/28/20 20:00 08/28/20 21:00 DC Lactobacillus Acidophilus (Bacid) 1 ea BIDWM PO 09/19/20 08:00 09/19/20 08:54 Levetiracetam (Keppra) 750 mg DAILY PO 08/14/20 09:00 09/19/20 08:54 Levetiracetam (Keppra) 1,000 mg QHS PO 08/14/20 21:00 09/18/20 21:00 Magnesium Hydroxide (Milk Of Magnesia) 30 ml DAILY PRN PO CONSTIPATION 08/14/20 01:25 08/15/20 01:48 Meropenem 1 gm/IV Miscellaneous Supplies 50 ml @ 100 mls/hr Q8H IV 09/17/20 11:00 09/19/20 11:19 Metoclopramide HCl (REGLAN INJection) 10 mg Q6HP PRN IV NAUSEA OR VOMITING 08/28/20 20:00 08/28/20 21:00 DC Morphine Sulfate (Morphine Sulfate Inj) 2 mg Q3H PRN IV SEVERE PAIN (PS 8-10) 08/30/20 19:00 09/09/20 17:54 DC 08/31/20 15:34 Nystatin (Mycostatin Powder, Nystop) groin BID TOP 08/26/20 21:00 09/09/20 09:27 DC 09/07/20 09:07 Nystatin (Mycostatin Powder, Nystop) groin BID PRN TOP RASH/ITCHING 09/09/20 09:25 09/13/20 11:36 Ondansetron HCl (ZOFRAN INJection) 4 mg Q4HP PRN IV NAUSEA OR VOMITING 08/24/20 13:05 08/24/20 14:05 DC Ondansetron HCl (ZOFRAN INJection) 4 mg Q4HP PRN IV NAUSEA OR VOMITING 08/28/20 20:00 08/28/20 21:00 DC Oxycodone HCl (Roxicodone, Oxyir) 5 mg ASDIRECTED PRN PO PAIN LEVEL 1-4 08/24/20 13:05 08/24/20 14:05 DC 08/24/20 13:26 Oxycodone/ Acetaminophen (Percocet 5mg/ 325mg Tablet) 1 tab Q6HP PRN PO MODERATE PAIN (PS 5-7) 08/24/20 12:45 09/15/20 21:12 Polyethylene Glycol (Miralax) 1 pkt BID PRN PO CONSTIPATION 08/14/20 22:15 08/28/20 18:55 DC 08/15/20 01:48 Potassium Chloride (Micro-K Extencaps) 20 meq BID PO 09/12/20 09:00 09/19/20 08:54 Potassium Chloride (Micro-K Extencaps) 20 meq DAILY PO 08/14/20 09:00 09/03/20 09:28 DC 09/02/20 09:59 Potassium Chloride (Micro-K Extencaps) 40 meq BID PO 09/03/20 09:00 09/12/20 07:57 DC 09/11/20 20:35 Pregabalin (Lyrica) 150 mg BID PO 08/14/20 09:00 09/19/20 08:54 Psyllium Hydrophilic Mucilloid (Metamucil) 1 pkt BID PO 09/01/20 09:00 09/04/20 08:23 DC 09/02/20 09:58 Sodium Chloride (Saline Lock Flush) 2 ml ASDIRECTED PRN IV SEE LABEL COMMENTS 08/14/20 10:50 08/26/20 14:24 DC Sodium Chloride (Saline Lock Flush) 2 ml SLF IV 08/14/20 14:00 08/26/20 14:24 DC 08/26/20 06:26 Sodium Chloride (Saline Lock Flush) 10 ml ASDIRECTED PRN IV SEE LABEL COMMENTS 08/24/20 16:20 09/04/20 22:06 Sodium Chloride (Saline Lock Flush) 10 ml BID IV 09/10/20 09:00 09/19/20 08:55 Sodium Chloride (Saline Lock Flush) 10 ml PICC IV 08/24/20 18:00 09/09/20 19:22 DC 09/09/20 17:44 Vancomycin HCl (First-Vancomycin 50(Firvanq)- 250mg/5ml) 125 mg BID PO 09/19/20 09:00 09/19/20 08:54 Vancomycin HCl (First-Vancomycin 50(Firvanq)- 250mg/5ml) 125 mg Q6H PO 08/16/20 18:00 08/19/20 15:52 DC 08/19/20 12:01 Vancomycin HCl 500 mg/Dextrose 110 ml @ 110 mls/hr Q12H IV 08/14/20 14:00 08/15/20 14:13 DC 08/15/20 02:05 Vancomycin HCl 750 mg/IV Miscellaneous Supplies 1 each/ Sodium Chloride 275 ml @ 275 mls/hr Q12H IV 08/14/20 14:00 08/15/20 14:13 DC 08/15/20 03:19 Vancomycin HCl 750 mg/IV Miscellaneous Supplies 1 each/ Sodium Chloride 275 ml @ 275 mls/hr Q24H IV 08/16/20 16:00 08/23/20 23:59 DC 08/23/20 17:01 Vancomycin HCl 750 mg/IV Miscellaneous Supplies 1 each/ Sodium Chloride 275 ml @ 275 mls/hr Q24H IV 08/16/20 17:00 08/23/20 23:59 DC 08/23/20 18:54 Vancomycin HCl 750 mg/IV Miscellaneous Supplies 1 each/ Sodium Chloride 275 ml @ 275 mls/hr Q24H IV 09/18/20 14:00 09/18/20 15:17 DC Vancomycin HCl 750 mg/IV Miscellaneous Supplies 1 each/ Sodium Chloride 275 ml @ 275 mls/hr Q24H IV 09/18/20 15:00 09/18/20 15:17 DC Vancomycin HCl 1000 mg/IV Miscellaneous Supplies 1 each/ Sodium Chloride 270 ml @ 270 mls/hr Q12H IV 08/14/20 01:55 Cancel Vancomycin HCl 1000 mg/IV Miscellaneous Supplies 1 each/ Sodium Chloride 270 ml @ 270 mls/hr Q12H IV 08/15/20 14:00 08/16/20 15:28 DC 08/16/20 02:17 Vancomycin HCl 1000 mg/IV Miscellaneous Supplies 1 each/ Sodium Chloride 270 ml @ 270 mls/hr Q12H IV 09/17/20 09:35 09/17/20 12:28 DC Allergies Coded Allergies: linezolid (Verified Allergy, Unknown, 04/23/19) Chayo Chen MD Sep 19, 2020 19:09
[2020-09-19] MEDS: ACETAMINOPHEN TAB 650MG DOSE (2X325MG) PO PRN (20:57)
[2020-09-19 22:00] VITALS: BP 108/67
[2020-09-20] MEDS: MEROPENEM INJ 1 GM in IV 1 EA IV SCH ×3 (04:02→18:23)
[2020-09-20 06:00] VITALS: BP 107/67
[2020-09-20 07:57] LABS: HEMATOCRIT 36.8 % (42.0-52.0); HEMOGLOBIN 11.8 g/dl (13.5-17.5); MEAN CORPUSCULAR HGB CONC 32.1 g/dl (32.0-36.5); MEAN CORPUSCULAR VOLUME 93.6 fl (80.0-96.0); PLATELET COUNT, AUTOMATED 411 10^3/uL (150-450); RED BLOOD COUNT 3.93 10^6/uL (4.30-6.10); WHITE BLOOD COUNT 6.4 10^3/uL (4.0-10.0)
[2020-09-20 08:26] LABS: ALBUMIN 2.5 GM/DL (3.2-5.2); ALT/SGPT 20 U/L (12-78); BILIRUBIN,TOTAL 0.3 MG/DL (0.2-1.0); BLOOD UREA NITROGEN 10 MG/DL (7-18); CALCIUM LEVEL 8.8 MG/DL (8.8-10.2); CARBON DIOXIDE LEVEL 28 MEQ/L (21-32); CHLORIDE LEVEL 109 MEQ/L (98-107); GLOMERULAR FILTRATION RATE > 60.0 (>42); GLUCOSE, FASTING 86 MG/DL (70-100); POTASSIUM SERUM 3.9 MEQ/L (3.5-5.1); SODIUM LEVEL 142 MEQ/L (136-145); TOTAL PROTEIN 7.3 GM/DL (6.4-8.2)
[2020-09-20] MEDS: LACTOBACILLUS ACIDOPHILUS CAP (BACID) PO SCH ×2 (09:50→18:23)
[2020-09-20] MEDS: VANCOMYCIN ORAL SOL 250MG/5ML ORAL SYRINGE PO SCH ×2 (09:51→21:32)
[2020-09-20] MEDS: levETIRAcetam 250MG TABLET (KEPPRA) PO SCH ×2 (09:52→21:31)
[2020-09-20] MEDS: POTASSIUM CHLORIDE 10 MEQ SR TABLET PO SCH ×2 (09:53→21:31)
[2020-09-20] MEDS: ENOXAPARIN 40MG/0.4ML SYRINGE (J1650 PER 10MG) SC SCH (09:54)
[2020-09-20] MEDS: SODIUM CHLORIDE 0.9% INJ 10 ML SYR IV SCH ×2 (09:55→21:32)
[2020-09-20 10:20] VITALS: BP 119/70
[2020-09-20] MEDS: PREGABALIN 75 MG CAP(LYRICA) PO SCH ×2 (10:31→21:31)
[2020-09-20 14:00] VITALS: BP 115/68
[2020-09-20 21:01] VITALS: BP 115/68
[2020-09-20] MEDS: ACETAMINOPHEN TAB 650MG DOSE (2X325MG) PO PRN (21:31)
[2020-09-21] MEDS: MEROPENEM INJ 1 GM in IV 1 EA IV SCH (02:07)
[2020-09-21 06:24] VITALS: BP 118/72
[2020-09-21 07:38] LABS: HEMATOCRIT 36.2 % (42.0-52.0); HEMOGLOBIN 11.5 g/dl (13.5-17.5); MEAN CORPUSCULAR HGB CONC 31.8 g/dl (32.0-36.5); MEAN CORPUSCULAR VOLUME 94.5 fl (80.0-96.0); PLATELET COUNT, AUTOMATED 364 10^3/uL (150-450); RED BLOOD COUNT 3.83 10^6/uL (4.30-6.10); WHITE BLOOD COUNT 5.2 10^3/uL (4.0-10.0)
[2020-09-21 08:06] LABS: ALBUMIN 2.5 GM/DL (3.2-5.2); ALT/SGPT 15 U/L (12-78); BILIRUBIN,TOTAL 0.3 MG/DL (0.2-1.0); BLOOD UREA NITROGEN 12 MG/DL (7-18); CALCIUM LEVEL 8.9 MG/DL (8.8-10.2); CARBON DIOXIDE LEVEL 29 MEQ/L (21-32); CHLORIDE LEVEL 109 MEQ/L (98-107); CREATININE FOR GFR 0.35 MG/DL (0.70-1.30); GLOMERULAR FILTRATION RATE > 60.0 (>42); GLUCOSE, FASTING 85 MG/DL (70-100); POTASSIUM SERUM 4.3 MEQ/L (3.5-5.1); SODIUM LEVEL 141 MEQ/L (136-145); TOTAL PROTEIN 6.4 GM/DL (6.4-8.2)
[2020-09-21] MEDS: POTASSIUM CHLORIDE 10 MEQ SR TABLET PO SCH ×2 (08:58→21:10)
[2020-09-21] MEDS: levETIRAcetam 250MG TABLET (KEPPRA) PO SCH ×2 (08:58→21:09)
[2020-09-21] MEDS: PREGABALIN 75 MG CAP(LYRICA) PO SCH ×2 (08:58→21:10)
[2020-09-21] MEDS: ENOXAPARIN 40MG/0.4ML SYRINGE (J1650 PER 10MG) SC SCH (08:59)
[2020-09-21] MEDS: LACTOBACILLUS ACIDOPHILUS CAP (BACID) PO SCH ×2 (08:59→19:35)
[2020-09-21] MEDS: VANCOMYCIN ORAL SOL 250MG/5ML ORAL SYRINGE PO SCH ×2 (08:59→21:10)
[2020-09-21] MEDS: SODIUM CHLORIDE 0.9% INJ 10 ML SYR IV SCH (09:00)
[2020-09-21] MEDS: LevoFLOXacin 750 MG TABLET PO SCH (09:05)
--- NOTE | 2020-09-21 10:39 | IPN ---
PROGRESS NOTE DATE: 09/21/2020 SUBJECTIVE: Fan is doing well. He has no complaints today. His appetite is still not great, but otherwise he is doing well. His wound VAC was changed this morning by Buffy and she stated the sacral decub looks great, but I was not able to see it. There is no evidence of infection, laceration or purulent drainage there. PHYSICAL EXAMINATION: VITAL SIGNS: Temperature 97.6, pulse 82, respirations 20, blood pressure 118/72, O2 sat 97% on room air. HEART: Normal S1, S2. No murmurs, rubs or gallops. LUNGS: Clear. No wheezes, rales or rhonchi. ABDOMEN: Soft, nontender. No hepatosplenomegaly. Colostomy with soft stool EXTREMITIES: With +1 pitting edema. Left heel decub with dry eschar, no infected. Sacral decub was not examined today. He has a wound VAC in place. : Rowley catheter in place. LABORATORY DATA: Urine culture: pseudomonas Aeruginosa and Klebsiella pneumonia both susceptible to Levofloxacin. He is currently day #5 of IV Meropenem, which will be discontinued, patient will be switched to p.o. Levofloxacin to finish a 7 day course. Blood cultures two sets were no growth after 72 hours on 09/17 and 09/16. IMPRESSION: 1. Catheter associated UTI with Klebsiella and pseudomonas: Patient will be switched to p.o. Levofloxacin. 2. Sacral decubitus ulcer: Without evidence of infection, healing well, wound VAC in place. 3. Healed decubitus ulcer without infection with an eschar. 4. History of C. difficile colitis: Patient on p.o. Vancomycin 125 mg p.o. b.i.d., which will be discontinued on 10/21/2020, 7 days after Levofloxacin is discontinued to decrease the risk of recurrent C. difficile. Continue probiotic one tablet p.o. b.i.d. PLAN: Discontinue PICC line. Case was discussed with Dr. Chen, who agrees with the plan. Decrease the number of blood draws as he has poor IV access Levofloxacin 500 mg daily for three days to start today. MTDD
[2020-09-21 14:00] VITALS: BP 116/73
[2020-09-21] MEDS: ACETAMINOPHEN TAB 650MG DOSE (2X325MG) PO PRN (21:13)
[2020-09-21 22:00] VITALS: BP 114/68
[2020-09-22] MEDS: ACETAMINOPHEN TAB 650MG DOSE (2X325MG) PO PRN ×2 (05:48→21:15)
[2020-09-22] MEDS: LevoFLOXacin 750 MG TABLET PO SCH (05:48)
[2020-09-22 06:00] VITALS: BP 120/70
[2020-09-22 08:00] VITALS: BP 113/69
[2020-09-22] MEDS: PREGABALIN 75 MG CAP(LYRICA) PO SCH ×2 (08:30→21:13)
[2020-09-22] MEDS: LACTOBACILLUS ACIDOPHILUS CAP (BACID) PO SCH ×2 (09:41→17:01)
[2020-09-22] MEDS: POTASSIUM CHLORIDE 10 MEQ SR TABLET PO SCH ×2 (09:41→21:13)
[2020-09-22] MEDS: VANCOMYCIN ORAL SOL 250MG/5ML ORAL SYRINGE PO SCH ×2 (09:42→21:13)
[2020-09-22] MEDS: levETIRAcetam 250MG TABLET (KEPPRA) PO SCH ×2 (09:42→21:13)
[2020-09-22] MEDS: ENOXAPARIN 40MG/0.4ML SYRINGE (J1650 PER 10MG) SC SCH (10:03)
[2020-09-23 05:29] VITALS: BP 114/70
[2020-09-23] MEDS: ACETAMINOPHEN TAB 650MG DOSE (2X325MG) PO PRN ×2 (06:09→20:48)
[2020-09-23] MEDS: LevoFLOXacin 750 MG TABLET PO SCH (06:09)
[2020-09-23] MEDS: LACTOBACILLUS ACIDOPHILUS CAP (BACID) PO SCH ×2 (08:35→18:09)
[2020-09-23] MEDS: POTASSIUM CHLORIDE 10 MEQ SR TABLET PO SCH ×2 (08:36→20:39)
[2020-09-23] MEDS: PREGABALIN 75 MG CAP(LYRICA) PO SCH ×2 (08:36→20:40)
[2020-09-23] MEDS: ENOXAPARIN 40MG/0.4ML SYRINGE (J1650 PER 10MG) SC SCH (08:36)
[2020-09-23] MEDS: levETIRAcetam 250MG TABLET (KEPPRA) PO SCH ×2 (08:36→20:40)
[2020-09-23] MEDS: VANCOMYCIN ORAL SOL 250MG/5ML ORAL SYRINGE PO SCH ×2 (08:37→20:39)
[2020-09-24] MEDS: ACETAMINOPHEN TAB 650MG DOSE (2X325MG) PO PRN ×2 (05:35→21:37)
[2020-09-24] MEDS: LevoFLOXacin 750 MG TABLET PO SCH (05:35)
[2020-09-24 06:00] VITALS: BP 113/67
[2020-09-24 08:00] VITALS: BP 111/73
[2020-09-24] MEDS: LACTOBACILLUS ACIDOPHILUS CAP (BACID) PO SCH ×2 (08:36→17:58)
[2020-09-24] MEDS: PREGABALIN 75 MG CAP(LYRICA) PO SCH ×2 (08:37→21:38)
[2020-09-24] MEDS: POTASSIUM CHLORIDE 10 MEQ SR TABLET PO SCH ×2 (08:38→21:38)
[2020-09-24] MEDS: levETIRAcetam 250MG TABLET (KEPPRA) PO SCH ×2 (08:38→21:38)
[2020-09-24] MEDS: ENOXAPARIN 40MG/0.4ML SYRINGE (J1650 PER 10MG) SC SCH (08:39)
[2020-09-24] MEDS: VANCOMYCIN ORAL SOL 250MG/5ML ORAL SYRINGE PO SCH ×2 (08:40→21:37)
[2020-09-25 04:00] VITALS: BP 102/64
[2020-09-25] MEDS: VANCOMYCIN ORAL SOL 250MG/5ML ORAL SYRINGE PO SCH ×2 (09:34→20:52)
[2020-09-25] MEDS: PREGABALIN 75 MG CAP(LYRICA) PO SCH ×2 (09:35→20:53)
[2020-09-25] MEDS: LACTOBACILLUS ACIDOPHILUS CAP (BACID) PO SCH ×2 (09:35→17:24)
[2020-09-25] MEDS: levETIRAcetam 250MG TABLET (KEPPRA) PO SCH ×2 (09:35→20:53)
[2020-09-25] MEDS: POTASSIUM CHLORIDE 10 MEQ SR TABLET PO SCH ×2 (09:35→20:52)
[2020-09-25] MEDS: ENOXAPARIN 40MG/0.4ML SYRINGE (J1650 PER 10MG) SC SCH (09:36)
[2020-09-25] MEDS: ACETAMINOPHEN TAB 650MG DOSE (2X325MG) PO PRN (20:53)
[2020-09-26 06:01] VITALS: BP 107/66
[2020-09-26] MEDS: ENOXAPARIN 40MG/0.4ML SYRINGE (J1650 PER 10MG) SC SCH (07:58)
[2020-09-26] MEDS: VANCOMYCIN ORAL SOL 250MG/5ML ORAL SYRINGE PO SCH ×2 (07:58→21:07)
[2020-09-26] MEDS: LACTOBACILLUS ACIDOPHILUS CAP (BACID) PO SCH ×2 (07:58→17:19)
[2020-09-26] MEDS: PREGABALIN 75 MG CAP(LYRICA) PO SCH ×2 (07:58→21:06)
[2020-09-26] MEDS: POTASSIUM CHLORIDE 10 MEQ SR TABLET PO SCH ×2 (07:59→21:05)
[2020-09-26] MEDS: levETIRAcetam 250MG TABLET (KEPPRA) PO SCH ×2 (07:59→21:06)
--- NOTE | 2020-09-26 11:02 | IPNPDOC ---
Subjective General Date Seen: Sep 26, 2020 Subject Chief Complaint/History The patient is a 75-year-old male admitted with a reason for visit of Uti,Weakness, Sacral Decubitus,Spinal Tumor. Patient with stage 4 sacral wound. Patient seen and examined at the bedside. He is feeling better. Improved with nutrition, colostomy working. Wound vac is functioning well. Current Medications Current Medications Current Medications Medications (Trade) Dose Ordered Sig/Mark Route PRN Reason Start Time Stop Time Status Last Admin Dose Admin Acetaminophen (Tylenol Tab) 650 mg Q4H PRN PO PAIN OR FEVER 08/14/20 01:25 09/25/20 20:53 Al Hydrox/Mg Hydrox/Simethicone (Mylanta) 30 ml DAILY PRN PO DYSPEPSIA 08/14/20 01:25 Cefepime HCl 2 gm/ Dextrose 50 ml @ 100 mls/hr Q12H IV 08/14/20 03:00 08/19/20 15:52 DC 08/19/20 15:26 Cholestyramine Resin (Questran) 4 gm QID PO 09/04/20 09:00 09/09/20 09:26 DC 09/06/20 21:38 Collagenase (SantyL) APPLY TO SACRUM DAILY TOP 08/22/20 09:00 08/24/20 12:51 DC 08/23/20 09:12 Collagenase (SantyL) APPLY TO SACRUM DAILYPRN PRN TOP SOILED WOUND DRESSING 08/22/20 14:10 08/24/20 12:51 DC Collagenase (SantyL) To sacrum. DAILY TOP 09/03/20 09:00 09/12/20 08:50 DC 09/11/20 08:30 Collagenase (SantyL) With bowel movements. [facility] PRN TOP DIARRHEA 09/03/20 10:30 Dextrose (Dextrose 50%) 25 ml ASDIRECTED PRN IV SEE LABEL COMMENTS 08/28/20 15:00 Dextrose/Sodium Chloride 1,000 ml @ 75 mls/hr [id number] IV 08/28/20 15:00 09/04/20 08:10 DC 09/03/20 21:17 Dextrose/Sodium Chloride 1,000 ml @ 75 mls/hr [id number] IV 09/04/20 21:15 09/05/20 20:53 DC 09/05/20 10:11 Diatrizoate Meglum/ Diatrizoate Sod (Gastrografin) 10 ml Q30M PO 08/28/20 11:15 08/28/20 11:46 DC 08/28/20 11:34 Diphenoxylate HCl/ Atropine (Lomotil 2.5mg/ 0.025mg) 1 ea BID PO 09/09/20 21:00 09/17/20 19:13 DC 09/17/20 09:37 Diphenoxylate HCl/ Atropine (Lomotil 2.5mg/ 0.025mg) 1 ea BID PO 09/03/20 09:00 09/04/20 08:23 DC 09/03/20 21:15 Diphenoxylate HCl/ Atropine (Lomotil 2.5mg/ 0.025mg) 1 ea TID PO 09/04/20 09:00 09/09/20 09:26 DC 09/09/20 08:40 Docusate Sodium (Colace) 100 mg BID PO 08/14/20 09:00 08/19/20 15:44 DC 08/17/20 09:43 Enoxaparin Sodium (Lovenox) 40 mg DAILY SC 08/14/20 09:00 08/28/20 14:42 DC 08/28/20 09:36 Enoxaparin Sodium (Lovenox) 40 mg DAILY SC 09/17/20 09:00 09/26/20 07:58 Ertapenem 1 gm/ Sodium Chloride 50 ml @ 100 mls/hr Q24H IV 08/30/20 16:00 09/05/20 20:53 DC 09/05/20 16:36 Fentanyl Citrate (Sublimaze) 25 mcg Q5MP PRN IV PAIN LEVEL 5-10 08/24/20 13:05 08/24/20 13:16 DC 08/24/20 13:15 Fentanyl Citrate (Sublimaze) 25 mcg Q5MP PRN IV PAIN LEVEL 5-10 08/28/20 20:00 08/28/20 21:00 DC Fidaxomicin (Dificid) 200 mg BID PO 08/19/20 21:00 08/29/20 09:01 DC 08/28/20 22:42 Furosemide (Lasix) 40 mg DAILY PO 08/14/20 09:00 09/04/20 08:10 DC 09/03/20 10:11 Gabapentin (Neurontin) 600 mg BID PO 08/14/20 09:00 Hold Glucagon (Glucagon) 1 mg ASDIRECTED PRN SC SEE LABEL COMMENTS 08/28/20 15:00 Glucose (Glucose) 16 GM ASDIRECTED PRN PO SEE LABEL COMMENTS 08/28/20 15:00 Heparin Sodium (Heparin (Flush)) 200 units ASDIRECTED PRN IV SEE LABEL COMMENTS 08/24/20 16:20 09/21/20 10:10 DC Heparin Sodium (Heparin (Flush)) 200 units BID IV 09/10/20 09:00 09/21/20 10:10 DC 09/21/20 09:00 Heparin Sodium (Heparin (Flush)) 200 units PICC IV 08/24/20 18:00 09/09/20 19:22 DC 09/09/20 17:44 Home Med (Med Rec Complete!) ASDIRECTED XX 08/14/20 07:25 08/14/20 07:23 DC Hydromorphone HCl (Dilaudid) 0.2 mg Q5MP PRN IV PAIN LEVEL 4-7 08/24/20 13:05 08/24/20 14:05 DC 08/24/20 13:42 Lactated Ringer's 1,000 ml @ 100 mls/hr Q10H IV 08/24/20 13:05 08/24/20 14:05 DC Lactated Ringer's 1,000 ml @ 100 mls/hr Q10H IV 08/28/20 20:00 08/28/20 21:00 DC Lactobacillus Acidophilus (Bacid) 1 ea BIDWM PO 09/19/20 08:00 09/26/20 07:58 Levetiracetam (Keppra) 750 mg DAILY PO 08/14/20 09:00 09/26/20 07:59 Levetiracetam (Keppra) 1,000 mg QHS PO 08/14/20 21:00 09/25/20 20:53 Levofloxacin (Levaquin) 750 mg DAILY@06 PO 09/21/20 08:30 09/24/20 08:33 DC 09/24/20 05:35 Magnesium Hydroxide (Milk Of Magnesia) 30 ml DAILY PRN PO CONSTIPATION 08/14/20 01:25 08/15/20 01:48 Meropenem 1 gm/IV Miscellaneous Supplies 50 ml @ 100 mls/hr Q8H IV 09/17/20 11:00 09/21/20 08:24 DC 09/21/20 02:07 Metoclopramide HCl (REGLAN INJection) 10 mg Q6HP PRN IV NAUSEA OR VOMITING 08/28/20 20:00 08/28/20 21:00 DC Morphine Sulfate (Morphine Sulfate Inj) 2 mg Q3H PRN IV SEVERE PAIN (PS 8-10) 08/30/20 19:00 09/09/20 17:54 DC 08/31/20 15:34 Nystatin (Mycostatin Powder, Nystop) groin BID TOP 08/26/20 21:00 09/09/20 09:27 DC 09/07/20 09:07 Nystatin (Mycostatin Powder, Nystop) groin BID PRN TOP RASH/ITCHING 09/09/20 09:25 09/13/20 11:36 Ondansetron HCl (ZOFRAN INJection) 4 mg Q4HP PRN IV NAUSEA OR VOMITING 08/24/20 13:05 08/24/20 14:05 DC Ondansetron HCl (ZOFRAN INJection) 4 mg Q4HP PRN IV NAUSEA OR VOMITING 08/28/20 20:00 08/28/20 21:00 DC Oxycodone HCl (Roxicodone, Oxyir) 5 mg ASDIRECTED PRN PO PAIN LEVEL 1-4 08/24/20 13:05 08/24/20 14:05 DC 08/24/20 13:26 Oxycodone/ Acetaminophen (Percocet 5mg/ 325mg Tablet) 1 tab Q6HP PRN PO MODERATE PAIN (PS 5-7) 08/24/20 12:45 09/20/20 11:57 DC 09/15/20 21:12 Polyethylene Glycol (Miralax) 1 pkt BID PRN PO CONSTIPATION 08/14/20 22:15 08/28/20 18:55 DC 08/15/20 01:48 Potassium Chloride (Micro-K Extencaps) 20 meq BID PO 09/12/20 09:00 09/26/20 07:59 Potassium Chloride (Micro-K Extencaps) 20 meq DAILY PO 08/14/20 09:00 09/03/20 09:28 DC 09/02/20 09:59 Potassium Chloride (Micro-K Extencaps) 40 meq BID PO 09/03/20 09:00 09/12/20 07:57 DC 09/11/20 20:35 Pregabalin (Lyrica) 150 mg BID PO 08/14/20 09:00 09/26/20 07:58 Psyllium Hydrophilic Mucilloid (Metamucil) 1 pkt BID PO 09/01/20 09:00 09/04/20 08:23 DC 09/02/20 09:58 Sodium Chloride (Saline Lock Flush) 2 ml ASDIRECTED PRN IV SEE LABEL COMMENTS 08/14/20 10:50 08/26/20 14:24 DC Sodium Chloride (Saline Lock Flush) 2 ml SLF IV 08/14/20 14:00 08/26/20 14:24 DC 08/26/20 06:26 Sodium Chloride (Saline Lock Flush) 10 ml ASDIRECTED PRN IV SEE LABEL COMMENTS 08/24/20 16:20 09/21/20 10:10 DC 09/04/20 22:06 Sodium Chloride (Saline Lock Flush) 10 ml BID IV 09/10/20 09:00 09/21/20 10:10 DC 09/21/20 09:00 Sodium Chloride (Saline Lock Flush) 10 ml PICC IV 08/24/20 18:00 09/09/20 19:22 DC 09/09/20 17:44 Vancomycin HCl (First-Vancomycin 50(Firvanq)- 250mg/5ml) 125 mg BID PO 09/19/20 09:00 10/01/20 11:00 09/26/20 07:58 Vancomycin HCl (First-Vancomycin 50(Firvanq)- 250mg/5ml) 125 mg Q6H PO 08/16/20 18:00 08/19/20 15:52 DC 08/19/20 12:01 Vancomycin HCl 500 mg/Dextrose 110 ml @ 110 mls/hr Q12H IV 08/14/20 14:00 08/15/20 14:13 DC 08/15/20 02:05 Vancomycin HCl 750 mg/IV Miscellaneous Supplies 1 each/ Sodium Chloride 275 ml @ 275 mls/hr Q12H IV 08/14/20 14:00 08/15/20 14:13 DC 08/15/20 03:19 Vancomycin HCl 750 mg/IV Miscellaneous Supplies 1 each/ Sodium Chloride 275 ml @ 275 mls/hr Q24H IV 08/16/20 16:00 08/23/20 23:59 DC 08/23/20 17:01 Vancomycin HCl 750 mg/IV Miscellaneous Supplies 1 each/ Sodium Chloride 275 ml @ 275 mls/hr Q24H IV 08/16/20 17:00 08/23/20 23:59 DC 08/23/20 18:54 Vancomycin HCl 750 mg/IV Miscellaneous Supplies 1 each/ Sodium Chloride 275 ml @ 275 mls/hr Q24H IV 09/18/20 14:00 09/18/20 15:17 DC Vancomycin HCl 750 mg/IV Miscellaneous Supplies 1 each/ Sodium Chloride 275 ml @ 275 mls/hr Q24H IV 09/18/20 15:00 09/18/20 15:17 DC Vancomycin HCl 1000 mg/IV Miscellaneous Supplies 1 each/ Sodium Chloride 270 ml @ 270 mls/hr Q12H IV 08/14/20 01:55 Cancel Vancomycin HCl 1000 mg/IV Miscellaneous Supplies 1 each/ Sodium Chloride 270 ml @ 270 mls/hr Q12H IV 08/15/20 14:00 08/16/20 15:28 DC 08/16/20 02:17 Vancomycin HCl 1000 mg/IV Miscellaneous Supplies 1 each/ Sodium Chloride 270 ml @ 270 mls/hr Q12H IV 09/17/20 09:35 09/17/20 12:28 DC Allergies Coded Allergies: linezolid (Verified Allergy, Unknown, 04/23/19) Objective Physical Examination Examination GENERAL APPEARANCE:Patient seen, laying in bed, awake, alert, and oriented. Comfortable, in no acute distress. SKIN: Warm and moist. Sacral wound 7x4.5x2 cm, undermining 3 cm at 12 o'clock. Clean granulating tissue. LUNGS: Clear to auscultation bilaterally. No wheezing appreciated. HEART: No chest wall abnormalities. Regular rate and rhythm with no murmurs appreciated. ABDOMEN: Abdomen is soft, non-tender, non-distended. EXTREMITIES: No edema identified. No calf tenderness. Vital Signs Vital Signs Date Time Temp Pulse Resp B/P (MAP) Pulse Ox O2 Delivery O2 Flow Rate FiO2 09/26/20 06:01 97.3 78 18 107/66 (80) 95 Room Air I&Os I&O- Last 24 Hours up to 6 AM 09/26/20 05:59 Intake Total 740 ml Output Total 750 ml Balance -10 ml Laboratory Data Microbiology Microbiology 09/17/20 Blood Culture - Final, Complete NO GROWTH AFTER 5 DAYS 09/17/20 Blood Culture - Final, Complete NO GROWTH AFTER 5 DAYS 09/16/20 Urine Culture - Final, Complete Pseudomonas Aeruginosa Klebsiella Pneumonia 09/16/20 Blood Culture - Final, Complete NO GROWTH AFTER 5 DAYS 09/16/20 Blood Culture - Final, Complete NO GROWTH AFTER 5 DAYS Impression Sacral wound stage 4. Improving. Continue with wound vac therapy. Off loading. Nutritional boost. Findings discussed with patient. Expecting continuous closure by secondary intention. Plan / VTE VTE Prophylaxis Ordered?: Yes CHRISTOPHER HERNANDEZ DO Sep 26, 2020 11:02
[2020-09-26] MEDS: ACETAMINOPHEN TAB 650MG DOSE (2X325MG) PO PRN (21:07)
[2020-09-27 06:00] VITALS: BP 107/67
[2020-09-27] MEDS: ACETAMINOPHEN TAB 650MG DOSE (2X325MG) PO PRN ×2 (06:25→20:42)
[2020-09-27] MEDS: LACTOBACILLUS ACIDOPHILUS CAP (BACID) PO SCH ×2 (06:25→17:19)
[2020-09-27] MEDS: POTASSIUM CHLORIDE 10 MEQ SR TABLET PO SCH ×2 (08:20→20:41)
[2020-09-27] MEDS: PREGABALIN 75 MG CAP(LYRICA) PO SCH ×2 (08:20→20:41)
[2020-09-27] MEDS: VANCOMYCIN ORAL SOL 250MG/5ML ORAL SYRINGE PO SCH ×2 (08:20→20:53)
[2020-09-27] MEDS: ENOXAPARIN 40MG/0.4ML SYRINGE (J1650 PER 10MG) SC SCH (08:20)
[2020-09-27] MEDS: levETIRAcetam 250MG TABLET (KEPPRA) PO SCH ×2 (08:20→20:42)
[2020-09-28 05:56] VITALS: BP 116/67
[2020-09-28 08:08] LABS: HEMATOCRIT 38.9 % (42.0-52.0); HEMOGLOBIN 12.2 g/dl (13.5-17.5); MEAN CORPUSCULAR HEMOGLOBIN 29.6 pg (27.0-33.0); MEAN CORPUSCULAR HGB CONC 31.4 g/dl (32.0-36.5); MEAN CORPUSCULAR VOLUME 94.4 fl (80.0-96.0); PLATELET COUNT, AUTOMATED 363 10^3/uL (150-450); RED BLOOD COUNT 4.12 10^6/uL (4.30-6.10); WHITE BLOOD COUNT 10.5 10^3/uL (4.0-10.0)
[2020-09-28] MEDS: ENOXAPARIN 40MG/0.4ML SYRINGE (J1650 PER 10MG) SC SCH (08:29)
[2020-09-28] MEDS: PREGABALIN 75 MG CAP(LYRICA) PO SCH ×2 (08:30→20:38)
[2020-09-28] MEDS: LACTOBACILLUS ACIDOPHILUS CAP (BACID) PO SCH ×2 (08:30→17:45)
[2020-09-28] MEDS: VANCOMYCIN ORAL SOL 250MG/5ML ORAL SYRINGE PO SCH (08:30)
[2020-09-28] MEDS: POTASSIUM CHLORIDE 10 MEQ SR TABLET PO SCH ×2 (08:30→20:38)
[2020-09-28] MEDS: levETIRAcetam 250MG TABLET (KEPPRA) PO SCH ×2 (08:31→20:37)
[2020-09-28 08:34] LABS: ALBUMIN 2.6 GM/DL (3.2-5.2); ALT/SGPT 16 U/L (12-78); BILIRUBIN,TOTAL 0.4 MG/DL (0.2-1.0); BLOOD UREA NITROGEN 16 MG/DL (7-18); CALCIUM LEVEL 8.6 MG/DL (8.8-10.2); CARBON DIOXIDE LEVEL 29 MEQ/L (21-32); CHLORIDE LEVEL 110 MEQ/L (98-107); CREATININE FOR GFR 0.37 MG/DL (0.70-1.30); GLOMERULAR FILTRATION RATE > 60.0 (>42); GLUCOSE, FASTING 87 MG/DL (70-100); POTASSIUM SERUM 4.3 MEQ/L (3.5-5.1); SODIUM LEVEL 143 MEQ/L (136-145); TOTAL PROTEIN 6.8 GM/DL (6.4-8.2)
--- NOTE | 2020-09-28 15:49 | IPN ---
PROGRESS NOTE DATE: 09/28/2020 Fan was seen a week ago. He is doing great. He is anxious to go home. There is some planning for hopefully getting discharged home with nursing care next week. He denies any nausea, vomiting, diarrhea, abdominal pain, fever, or chills. His colostomy is working well. PHYSICAL EXAMINATION: Temperature is 96.2, respirations 20, blood pressure 116/67, oxygen saturation 97% on room air. HEART: Normal S1, S2. No murmurs, rubs, or gallops. LUNGS: Clear. No wheezes, rales, or rhonchi. ABDOMEN: Right lower quadrant colostomy functioning well. Soft stools in the bag. Wound vacuum-assisted closure (VAC) was removed today. The ulcer measures 5 x 3 cm with a depth of 1.2 cm. There is tunneling at 12 o'clock and 1 o'clock about 2-3 cm, but there is no periwound cellulitis or maceration. No purulent discharge. The wound is not exposed. LABORATORY DATA: White count 10.5, hemoglobin 12.2, hematocrit 38.9, platelets 363. Sodium 143, potassium 4.3, chloride 110, bicarbonate 29, BUN 16, creatinine 0.37, glucose 87, calcium 8.6. AST 11, ALT 16, alkaline phosphatase 112. IMPRESSION: 1. Stage IV sacral decubitus ulcer, doing very well, wound VAC and dressing change Thursday, Thursday, Thursday. 2. Catheter-associated urinary tract infection with klebsiella and pseudomonas. Patient finished a course of oral levofloxacin on September 24 with no recurrence of fever or white count. 3. History of Clostridium (C) difficile colitis. Patient on probiotic and oral vancomycin to prevent recurrence. This will be discontinued today. He will continue with probiotics. PLAN: Discontinue oral vancomycin. There is no evidence of recurrence. Continue probiotics and encourage intake of yogurt. Dr. Powell signing off. Patient was examined with charge nurse, Buffy, who did his dressing change at the same time. RUDY
[2020-09-29 06:09] VITALS: BP 113/86
[2020-09-29] MEDS: POTASSIUM CHLORIDE 10 MEQ SR TABLET PO SCH ×2 (08:25→21:06)
[2020-09-29] MEDS: LACTOBACILLUS ACIDOPHILUS CAP (BACID) PO SCH ×2 (08:25→18:13)
[2020-09-29] MEDS: levETIRAcetam 250MG TABLET (KEPPRA) PO SCH ×2 (08:25→21:06)
[2020-09-29] MEDS: ENOXAPARIN 40MG/0.4ML SYRINGE (J1650 PER 10MG) SC SCH (08:26)
[2020-09-29] MEDS: PREGABALIN 75 MG CAP(LYRICA) PO SCH ×2 (08:26→21:06)
[2020-09-29] MEDS: ACETAMINOPHEN TAB 650MG DOSE (2X325MG) PO PRN (21:07)
[2020-09-30 06:00] VITALS: BP 109/72
[2020-09-30] MEDS: LACTOBACILLUS ACIDOPHILUS CAP (BACID) PO SCH ×2 (08:10→18:34)
[2020-09-30] MEDS: POTASSIUM CHLORIDE 10 MEQ SR TABLET PO SCH ×2 (08:10→21:01)
[2020-09-30] MEDS: PREGABALIN 75 MG CAP(LYRICA) PO SCH ×2 (08:10→21:01)
[2020-09-30] MEDS: ENOXAPARIN 40MG/0.4ML SYRINGE (J1650 PER 10MG) SC SCH (08:10)
[2020-09-30] MEDS: levETIRAcetam 250MG TABLET (KEPPRA) PO SCH ×2 (08:10→21:02)
[2020-09-30] MEDS: ACETAMINOPHEN TAB 650MG DOSE (2X325MG) PO PRN (21:02)
[2020-10-01 06:00] VITALS: BP 106/70
[2020-10-01] MEDS: POTASSIUM CHLORIDE 10 MEQ SR TABLET PO SCH ×2 (08:35→21:15)
[2020-10-01] MEDS: PREGABALIN 75 MG CAP(LYRICA) PO SCH ×2 (08:35→21:16)
[2020-10-01] MEDS: levETIRAcetam 250MG TABLET (KEPPRA) PO SCH ×2 (08:35→21:16)
[2020-10-01] MEDS: LACTOBACILLUS ACIDOPHILUS CAP (BACID) PO SCH ×2 (08:35→17:22)
[2020-10-01] MEDS: ENOXAPARIN 40MG/0.4ML SYRINGE (J1650 PER 10MG) SC SCH (08:36)
[2020-10-01] MEDS: ACETAMINOPHEN TAB 650MG DOSE (2X325MG) PO PRN (21:16)
[2020-10-02 06:00] VITALS: BP 109/67
[2020-10-02] MEDS: LACTOBACILLUS ACIDOPHILUS CAP (BACID) PO SCH ×2 (08:57→17:28)
[2020-10-02] MEDS: POTASSIUM CHLORIDE 10 MEQ SR TABLET PO SCH ×2 (08:57→21:30)
[2020-10-02] MEDS: PREGABALIN 75 MG CAP(LYRICA) PO SCH ×2 (08:57→21:32)
[2020-10-02] MEDS: levETIRAcetam 250MG TABLET (KEPPRA) PO SCH ×2 (08:58→21:31)
[2020-10-02] MEDS: ENOXAPARIN 40MG/0.4ML SYRINGE (J1650 PER 10MG) SC SCH (08:58)
[2020-10-02] MEDS: ACETAMINOPHEN TAB 650MG DOSE (2X325MG) PO PRN (21:32)
[2020-10-03 06:00] VITALS: BP 109/68
[2020-10-03] MEDS: PREGABALIN 75 MG CAP(LYRICA) PO SCH ×2 (08:20→20:19)
[2020-10-03] MEDS: levETIRAcetam 250MG TABLET (KEPPRA) PO SCH ×2 (08:20→20:19)
[2020-10-03] MEDS: LACTOBACILLUS ACIDOPHILUS CAP (BACID) PO SCH ×2 (08:20→18:16)
[2020-10-03] MEDS: POTASSIUM CHLORIDE 10 MEQ SR TABLET PO SCH ×2 (08:20→20:19)
[2020-10-03] MEDS: ENOXAPARIN 40MG/0.4ML SYRINGE (J1650 PER 10MG) SC SCH (08:21)
[2020-10-03] MEDS: ACETAMINOPHEN TAB 650MG DOSE (2X325MG) PO PRN (20:19)
[2020-10-04 06:00] VITALS: BP 110/68
[2020-10-04] MEDS: LACTOBACILLUS ACIDOPHILUS CAP (BACID) PO SCH ×2 (09:27→17:43)
[2020-10-04] MEDS: POTASSIUM CHLORIDE 10 MEQ SR TABLET PO SCH ×2 (09:28→21:49)
[2020-10-04] MEDS: levETIRAcetam 250MG TABLET (KEPPRA) PO SCH ×2 (09:28→21:48)
[2020-10-04] MEDS: ENOXAPARIN 40MG/0.4ML SYRINGE (J1650 PER 10MG) SC SCH (09:28)
[2020-10-04] MEDS: PREGABALIN 75 MG CAP(LYRICA) PO SCH ×2 (09:28→21:49)
[2020-10-04] MEDS: SANTYL OINT 30GM TOP SCH (09:29)
[2020-10-04] MEDS: ACETAMINOPHEN TAB 650MG DOSE (2X325MG) PO PRN (21:49)
[2020-10-05 05:40] VITALS: BP 111/73
[2020-10-05] MEDS: POTASSIUM CHLORIDE 10 MEQ SR TABLET PO SCH ×2 (09:01→20:37)
[2020-10-05] MEDS: ENOXAPARIN 40MG/0.4ML SYRINGE (J1650 PER 10MG) SC SCH (09:01)
[2020-10-05] MEDS: levETIRAcetam 250MG TABLET (KEPPRA) PO SCH ×2 (09:01→20:38)
[2020-10-05] MEDS: LACTOBACILLUS ACIDOPHILUS CAP (BACID) PO SCH ×2 (09:01→18:06)
[2020-10-05] MEDS: PREGABALIN 75 MG CAP(LYRICA) PO SCH ×2 (09:01→20:38)
[2020-10-05] MEDS: SANTYL OINT 30GM TOP SCH (09:03)
[2020-10-05] MEDS: ACETAMINOPHEN TAB 650MG DOSE (2X325MG) PO PRN (20:38)
[2020-10-06 06:02] VITALS: BP 115/68
--- NOTE | 2020-10-06 08:15 | IPNPDOC ---
Subjective Date Seen The patient was seen on 10/04/20. Subjective Chief Complaint/HPI complains about the left heel wound and his nails . Colostomy working well. Sacral decubiti slowly getting smaller. Objective Physical Examination General Exam: Positive: Alert, Cooperative, No Acute Distress Eye Exam: Positive: PERRLA, Conjunctiva & lids normal, EOMI; Negative: Sclera icteric ENT Exam: Positive: Atraumatic, Mucous membr. moist/pink, Pharynx Normal Neck Exam: Positive: Supple; Negative: JVD, thyromegaly Chest Exam: Positive: Clear to auscultation, Normal air movement Heart Exam: Positive: Rate Normal, Regular Rhythm, Normal S1, Normal S2; Negative: Murmurs, Rubs Abdomen Exam: Positive: Normal bowel sounds, Soft, Other (colostomy bag); Negative: Tenderness Extremity Exam: Negative: Clubbing, Cyanosis, Edema Skin Exam: Positive: Breakdown (sacral decubitii with clean granulation tissue with some tunneling ), Other skin issue (left heel 10x 8 cm pressure ulcer with eshchar, left medial malleoli 1x1 cm dry scabbed presure injury, right heel small dry pressure injury) Neuro Exam: Positive: Normal Speech Psych Exam: Positive: Memory Intact, Oriented x 3 Assessment /Plan Assessment This is a 75-year-old male who lives at home , WC bound with for 25 years due to bilateral progressive weakness of both the lower extremities after a Lumber spinal tumor resection in 1979, multiple back surgeries between - , thoracic laminectomy and lumber fusion, neuropathic Charcot joint, Chronic right and left heels and his sacral coccyx area pressure ulcers initially presented to the ED after a mechanical fall at home during transferring on 08/14/20. He was found to have large infected Stage IV sacral decubitus with ESBL E coli and E.faecalis UTI was treated with broad-spectrum antibiotics. He developed C. Diff colitis at home causing stool contamination of the decubiti leading it to get infected. He needed a diverting colostomy this admission. Had prolonged ileus after colostomy followed by prolonged diarrhea. Stage IV sacral decubitus status post debridement, diverting colostomy and Wound-Vac managed by Plastic Surgery doing very well, wound VAC and dressing change Thursday, Thursday, Thursday. Neuropathic Charcot foot/ MRSA of right foot/ Bilateral heel ulcers s/p debridement Left Heel pressure ulcer again bad with eschar needs debridement again spoke with Dr Olivarez. Chronic Leg weakness due to chronic neuropathy / WC bound s/p surgery for lumber spinal tumor and multiple follow up surgeries from 1979 to 1995/ Meningocele/ pseudomeningocele/ arachnoiditis Cyst drainage from the lower back in 2014 persistent cystic swelling at the back surgery site for years. Flaccid Neurogenic bladder from spinal cord surgery chronic ware Chronic back pain post laminectomy syndrome gabapentin, lyrica, oxycodone History of seizure disorder keppra Chronic osteomyelitis of right distal fibula H/o C. Diff colitis, completed 10 days of fidaxomicin then was on oral vanco No signs of recurrence so stopped. cont probiotic. Fall at home at presentation which was mechanical MRI was negative for an acute CVA or bleed, back to baseline mentation. Free air in the abdomen with no source of perforated viscus found in exploratory laparoscopy on 08/28/2020, was empirically treated with Ertapenem by ID on 08/30 due to concerns of perforation finished 7 days. Recurrent Catheter-associated urinary tract infection with klebsiella and pseudomonas, Enterobacter before. received multiple courses of antibiotics. last finished on 09/24/20 Plan/VTE VTE Prophylaxis Ordered?: Yes VS, I&O, 24H, Fishbone Vital Signs/I&O Vital Signs Date Time Temp Pulse Resp B/P (MAP) Pulse Ox O2 Delivery O2 Flow Rate FiO2 10/04/20 06:00 98.7 78 18 110/68 (82) 95 Room Air I&O- Last 24 Hours up to 6 AM 10/04/20 06:00 Intake Total 1080 ml Output Total 710 ml Balance 370 ml JESSICA GRIFFITHS MD October 04, 2020 19:00
[2020-10-06] MEDS: LACTOBACILLUS ACIDOPHILUS CAP (BACID) PO SCH ×2 (08:41→17:13)
[2020-10-06] MEDS: levETIRAcetam 250MG TABLET (KEPPRA) PO SCH ×2 (08:41→21:07)
[2020-10-06] MEDS: POTASSIUM CHLORIDE 10 MEQ SR TABLET PO SCH ×2 (08:41→21:06)
[2020-10-06] MEDS: PREGABALIN 75 MG CAP(LYRICA) PO SCH ×2 (08:42→21:07)
[2020-10-06] MEDS: ENOXAPARIN 40MG/0.4ML SYRINGE (J1650 PER 10MG) SC SCH (08:43)
[2020-10-06 09:05] LABS: BASO # 0.1 10^3/uL (0.0-0.2); BASO % 0.9 % (0.0-1.0); EOS # 0.3 10^3/uL (0.0-0.5); EOS % 4.5 % (0.0-3.0); HEMATOCRIT 39.3 % (42.0-52.0); HEMOGLOBIN 12.4 g/dl (13.5-17.5); LYMPH # 1.2 10^3/uL (1.5-5.0); MEAN CORPUSCULAR HEMOGLOBIN 29.7 pg (27.0-33.0); MEAN CORPUSCULAR HGB CONC 31.6 g/dl (32.0-36.5); MONO # 0.4 10^3/uL (0.0-0.8); MONO % 6.8 % (2.0-8.0); NEUTROPHILS # 3.8 10^3/uL (1.5-8.5); NEUTROPHILS % 66.5 % (36.0-66.0); PLATELET COUNT, AUTOMATED 334 10^3/uL (150-450); RED BLOOD COUNT 4.18 10^6/uL (4.30-6.10); WHITE BLOOD COUNT 5.8 10^3/uL (4.0-10.0)
[2020-10-06 09:28] LABS: BLOOD UREA NITROGEN 13 MG/DL (7-18); CALCIUM LEVEL 8.4 MG/DL (8.8-10.2); CARBON DIOXIDE LEVEL 29 MEQ/L (21-32); CHLORIDE LEVEL 109 MEQ/L (98-107); GLOMERULAR FILTRATION RATE > 60.0 (>42); GLUCOSE, FASTING 109 MG/DL (70-100); POTASSIUM SERUM 4.3 MEQ/L (3.5-5.1); SODIUM LEVEL 142 MEQ/L (136-145)
--- NOTE | 2020-10-06 11:10 | IPN ---
PROGRESS NOTE DATE: 10/05/2020 SUBJECTIVE: Patient seen and examined. I was asked to reevaluate due to worsening of his left heel, some further eschar formation. OBJECTIVE: Vitals: He remained afebrile. Lower extremity examination: On the right heel the wound is essentially closed. On the left there is some loose eschar in the plantar posterior heel. Labs were reviewed. White blood cell count today is 10.5. ASSESSMENT: A 75-year-old diabetic male with lower extremity paraplegia with heel pressure ulceration. TREATMENT: Excisional wound debridement performed using #10 blade including subcutaneous tissue and fat. Would continue the current Hydrofera Blue dressings and offloading.
[2020-10-06] MEDS: SANTYL OINT 30GM TOP SCH (15:03)
[2020-10-06] MEDS: ACETAMINOPHEN TAB 650MG DOSE (2X325MG) PO PRN (21:07)
[2020-10-07 06:16] VITALS: BP 115/68
[2020-10-07] MEDS: ENOXAPARIN 40MG/0.4ML SYRINGE (J1650 PER 10MG) SC SCH (09:10)
[2020-10-07] MEDS: POTASSIUM CHLORIDE 10 MEQ SR TABLET PO SCH ×2 (09:10→20:52)
[2020-10-07] MEDS: levETIRAcetam 250MG TABLET (KEPPRA) PO SCH ×2 (09:10→20:54)
[2020-10-07] MEDS: PREGABALIN 75 MG CAP(LYRICA) PO SCH ×2 (09:10→20:54)
[2020-10-07] MEDS: LACTOBACILLUS ACIDOPHILUS CAP (BACID) PO SCH ×2 (09:10→17:05)
[2020-10-07] MEDS: SANTYL OINT 30GM TOP SCH (09:11)
[2020-10-07] MEDS: ACETAMINOPHEN TAB 650MG DOSE (2X325MG) PO PRN (20:55)
[2020-10-08 06:00] VITALS: BP 116/69
[2020-10-08 07:53] LABS: HEMATOCRIT 37.5 % (42.0-52.0); HEMOGLOBIN 11.8 g/dl (13.5-17.5); MEAN CORPUSCULAR HEMOGLOBIN 29.5 pg (27.0-33.0); MEAN CORPUSCULAR HGB CONC 31.5 g/dl (32.0-36.5); MEAN CORPUSCULAR VOLUME 93.8 fl (80.0-96.0); PLATELET COUNT, AUTOMATED 318 10^3/uL (150-450); WHITE BLOOD COUNT 5.1 10^3/uL (4.0-10.0)
[2020-10-08 08:06] LABS: BLOOD UREA NITROGEN 17 MG/DL (7-18); CALCIUM LEVEL 8.4 MG/DL (8.8-10.2); CARBON DIOXIDE LEVEL 28 MEQ/L (21-32); CHLORIDE LEVEL 110 MEQ/L (98-107); CREATININE FOR GFR 0.31 MG/DL (0.70-1.30); GLOMERULAR FILTRATION RATE > 60.0 (>42); GLUCOSE, FASTING 75 MG/DL (70-100); POTASSIUM SERUM 4.3 MEQ/L (3.5-5.1); SODIUM LEVEL 142 MEQ/L (136-145)
[2020-10-08] MEDS: SANTYL OINT 30GM TOP SCH (09:04)
[2020-10-08] MEDS: ENOXAPARIN 40MG/0.4ML SYRINGE (J1650 PER 10MG) SC SCH (09:04)
[2020-10-08] MEDS: levETIRAcetam 250MG TABLET (KEPPRA) PO SCH ×2 (09:04→21:14)
[2020-10-08] MEDS: POTASSIUM CHLORIDE 10 MEQ SR TABLET PO SCH ×2 (09:04→21:14)
[2020-10-08] MEDS: LACTOBACILLUS ACIDOPHILUS CAP (BACID) PO SCH ×2 (09:04→17:01)
[2020-10-08] MEDS: PREGABALIN 75 MG CAP(LYRICA) PO SCH ×2 (09:04→21:14)
[2020-10-09 06:00] VITALS: BP 112/69
[2020-10-09] MEDS: PREGABALIN 75 MG CAP(LYRICA) PO SCH ×2 (08:52→20:56)
[2020-10-09] MEDS: POTASSIUM CHLORIDE 10 MEQ SR TABLET PO SCH ×2 (08:52→20:57)
[2020-10-09] MEDS: LACTOBACILLUS ACIDOPHILUS CAP (BACID) PO SCH ×2 (08:52→18:12)
[2020-10-09] MEDS: levETIRAcetam 250MG TABLET (KEPPRA) PO SCH ×2 (08:53→20:57)
[2020-10-09] MEDS: ENOXAPARIN 40MG/0.4ML SYRINGE (J1650 PER 10MG) SC SCH (08:53)
[2020-10-09] MEDS: SANTYL OINT 30GM TOP SCH (08:54)
[2020-10-09] MEDS: ACETAMINOPHEN TAB 650MG DOSE (2X325MG) PO PRN (21:04)
[2020-10-10 06:00] VITALS: BP 111/69
[2020-10-10] MEDS: ENOXAPARIN 40MG/0.4ML SYRINGE (J1650 PER 10MG) SC SCH (08:34)
[2020-10-10] MEDS: levETIRAcetam 250MG TABLET (KEPPRA) PO SCH ×2 (08:34→21:45)
[2020-10-10] MEDS: POTASSIUM CHLORIDE 10 MEQ SR TABLET PO SCH ×2 (08:35→21:45)
[2020-10-10] MEDS: PREGABALIN 75 MG CAP(LYRICA) PO SCH ×2 (08:35→21:45)
[2020-10-10] MEDS: SANTYL OINT 30GM TOP SCH (08:35)
[2020-10-10] MEDS: LACTOBACILLUS ACIDOPHILUS CAP (BACID) PO SCH ×2 (08:35→17:48)
[2020-10-10] MEDS: ACETAMINOPHEN TAB 650MG DOSE (2X325MG) PO PRN ×2 (09:27→21:47)
[2020-10-11 06:00] VITALS: BP 109/69
[2020-10-11] MEDS: POTASSIUM CHLORIDE 10 MEQ SR TABLET PO SCH ×2 (10:04→20:59)
[2020-10-11] MEDS: ENOXAPARIN 40MG/0.4ML SYRINGE (J1650 PER 10MG) SC SCH (10:04)
[2020-10-11] MEDS: levETIRAcetam 250MG TABLET (KEPPRA) PO SCH ×2 (10:05→20:59)
[2020-10-11] MEDS: PREGABALIN 75 MG CAP(LYRICA) PO SCH ×2 (10:05→20:59)
[2020-10-11] MEDS: LACTOBACILLUS ACIDOPHILUS CAP (BACID) PO SCH ×2 (10:05→17:32)
[2020-10-11] MEDS ORDERED: oxyCODONE 10 MG CR TAB PO SCH (21:00)
[2020-10-11] MEDS: oxyCODONE 10 MG CR TAB PO SCH (22:26)
[2020-10-12 06:00] VITALS: BP 129/64
[2020-10-12] MEDS: PREGABALIN 75 MG CAP(LYRICA) PO SCH ×2 (08:12→21:34)
[2020-10-12] MEDS: POTASSIUM CHLORIDE 10 MEQ SR TABLET PO SCH ×2 (08:12→21:33)
[2020-10-12] MEDS: LACTOBACILLUS ACIDOPHILUS CAP (BACID) PO SCH ×2 (08:12→17:50)
[2020-10-12] MEDS: oxyCODONE 10 MG CR TAB PO SCH ×2 (08:13→21:34)
[2020-10-12] MEDS: levETIRAcetam 250MG TABLET (KEPPRA) PO SCH ×2 (08:13→21:34)
[2020-10-12] MEDS: ENOXAPARIN 40MG/0.4ML SYRINGE (J1650 PER 10MG) SC SCH (08:14)
[2020-10-13 06:00] VITALS: BP 111/65
[2020-10-13] MEDS: ENOXAPARIN 40MG/0.4ML SYRINGE (J1650 PER 10MG) SC SCH (08:14)
[2020-10-13] MEDS: POTASSIUM CHLORIDE 10 MEQ SR TABLET PO SCH ×2 (08:15→20:17)
[2020-10-13] MEDS: oxyCODONE 10 MG CR TAB PO SCH ×2 (08:15→20:18)
[2020-10-13] MEDS: PREGABALIN 75 MG CAP(LYRICA) PO SCH ×2 (08:15→20:17)
[2020-10-13] MEDS: levETIRAcetam 250MG TABLET (KEPPRA) PO SCH ×2 (08:16→20:18)
[2020-10-13] MEDS: LACTOBACILLUS ACIDOPHILUS CAP (BACID) PO SCH ×2 (08:16→17:02)
[2020-10-14 06:00] VITALS: BP 110/65
[2020-10-14] MEDS: oxyCODONE 10 MG CR TAB PO SCH ×2 (08:29→21:21)
[2020-10-14] MEDS: levETIRAcetam 250MG TABLET (KEPPRA) PO SCH ×2 (08:30→21:20)
[2020-10-14] MEDS: POTASSIUM CHLORIDE 10 MEQ SR TABLET PO SCH ×2 (08:30→21:20)
[2020-10-14] MEDS: PREGABALIN 75 MG CAP(LYRICA) PO SCH ×2 (08:30→21:20)
[2020-10-14] MEDS: LACTOBACILLUS ACIDOPHILUS CAP (BACID) PO SCH ×2 (08:30→18:34)
[2020-10-14] MEDS: ENOXAPARIN 40MG/0.4ML SYRINGE (J1650 PER 10MG) SC SCH (08:31)
--- NOTE | 2020-10-14 16:23 | IPN ---
PROGRESS NOTE DATE: 10/14/2020 SUBJECTIVE: Patient is seen and examined at the bedside. Chart has been reviewed. He has no new complaints. No fever, chills, abdominal pain, nausea or vomiting. Patient's appetite has been the same. He is requesting for Dr. Olivarez to cut his toenail on the left foot big toe. No other issues. Patient's Rowley was changed today with some leakage around the area, but will be changed in a few minutes. Patient continues to drain via the wound vacuum assisted closure (VAC). Sacral decubitus is looking much better. Colostomy bag draining yellow stool. PHYSICAL EXAMINATION: VITAL SIGNS: Temperature 98.8, pulse 77, respiratory rate 18, blood pressure 110/65, 97% on room air. GENERAL: Awake, alert, oriented times three, answering questions appropriately. No pallor, icterus or jaundice. HEENT: Face is symmetric. Tongue is midline. Moist mucous membranes. No jugular venous distention (JVD), thyromegaly or cervical lymphadenopathy. LUNGS: Clear to auscultation. No wheezing, rales or rhonchi. HEART: S1, S2. Sinus rhythm. ABDOMEN: Left-sided colostomy with yellow stool. He has a wound VAC in his sacrum and a Rowley catheter in place. EXTREMITIES: He has chronic 1+ pitting edema in his bilateral lower extremities with a left ankle ulcer in the plantar surface with good granulation tissue. Right heel has a healed scar from previous ulcer. LABORATORY DATA: 10/08/2020: Complete blood count (CBC) and metabolic panel have been reviewed. ASSESSMENT: This is a 75-year-old male who lives at home, wheelchair bound at baseline, with worsening lower extremity weakness due to spinal tumor resection in 1979 and multiple back surgeries, thoracic laminectomy and lumbar fusion, neuropathic Charcot joint, chronic bilateral heel ulcers and sacral coccygeal ulcer, admitted after mechanical fall after transferring on August 14, 2020, had an infected stage IV sacral decubitus with extended spectrum beta-lactamase (ESBL) Escherichia (E) coli, Enterococcus faecalis, treated with broad spectrum antibiotics and subsequently developed Clostridium (C) difficile colitis treated with oral vancomycin, causing contamination of the stool, requiring a diverting colostomy, Rowley catheter and wound VAC placement to his sacral decubitus. CURRENT ISSUES: 1. Stage IV sacral decubitus present prior to hospital admission.-?new necrotic area 2. Neuropathic Charcot foot. 3. Methicillin-resistant Staphylococcus aureus (MRSA) of the right foot. 4. Bilateral heel ulcers status post debridement. 5. Chronic lower extremity weakness with neuropathy, wheelchair bound at baseline with history of spinal tumor with multiple lumbar surgeries with meningocele, pseudomeningocele, arachnoiditis in the past and cyst drainage of the lower back. 6. Neurogenic bladder requiring Rowley catheter placement. 7. Chronic back pain. 8. History of seizure disorder. 9. Osteomyelitis of the right distal tibia. 10. Clostridium (C) difficile colitis status post fidaxomicin then oral vancomycin. 11. Mechanical fall due to significant debility. 12. Free air in the abdomen, resolved, with no source of perforated viscus status post exploratory laparoscopy August 28, 2020, empirically treated with seven days of ertapenem. 13. Recurrent catheter-associated urinary tract infection. PLAN: Patient is doing well. He is requesting podiatry to come and cut his nail on the left big toe. He is currently doing well with his wound VAC. Left heel has good granulation tissue. will ask plastic sx to re-eval decub . Right heel is healed. He is currently on OxyContin and Bacid. Continued on all his other home medications. Currently on no antibiotics. MTDD
[2020-10-15 06:00] VITALS: BP 108/64
[2020-10-15 07:04] LABS: HEMATOCRIT 36.9 % (42.0-52.0); HEMOGLOBIN 11.6 g/dl (13.5-17.5); MEAN CORPUSCULAR HEMOGLOBIN 29.8 pg (27.0-33.0); MEAN CORPUSCULAR HGB CONC 31.4 g/dl (32.0-36.5); MEAN CORPUSCULAR VOLUME 94.9 fl (80.0-96.0); PLATELET COUNT, AUTOMATED 251 10^3/uL (150-450); RED BLOOD COUNT 3.89 10^6/uL (4.30-6.10); WHITE BLOOD COUNT 5.3 10^3/uL (4.0-10.0)
[2020-10-15 07:33] LABS: BLOOD UREA NITROGEN 16 MG/DL (7-18); CALCIUM LEVEL 8.7 MG/DL (8.8-10.2); CARBON DIOXIDE LEVEL 30 MEQ/L (21-32); CHLORIDE LEVEL 106 MEQ/L (98-107); CREATININE FOR GFR 0.33 MG/DL (0.70-1.30); GLOMERULAR FILTRATION RATE > 60.0 (>42); GLUCOSE, FASTING 71 MG/DL (70-100); POTASSIUM SERUM 4.2 MEQ/L (3.5-5.1); SODIUM LEVEL 140 MEQ/L (136-145)
[2020-10-15] MEDS: LACTOBACILLUS ACIDOPHILUS CAP (BACID) PO SCH ×2 (08:47→17:34)
[2020-10-15] MEDS: levETIRAcetam 250MG TABLET (KEPPRA) PO SCH ×2 (08:47→21:05)
[2020-10-15] MEDS: oxyCODONE 10 MG CR TAB PO SCH ×2 (08:48→21:05)
[2020-10-15] MEDS: POTASSIUM CHLORIDE 10 MEQ SR TABLET PO SCH ×2 (08:48→21:04)
[2020-10-15] MEDS: PREGABALIN 75 MG CAP(LYRICA) PO SCH ×2 (08:48→21:05)
[2020-10-15] MEDS: ENOXAPARIN 40MG/0.4ML SYRINGE (J1650 PER 10MG) SC SCH (08:49)
[2020-10-16 06:00] VITALS: BP 110/62
[2020-10-16] MEDS: LACTOBACILLUS ACIDOPHILUS CAP (BACID) PO SCH ×2 (09:00→18:33)
[2020-10-16] MEDS: oxyCODONE 10 MG CR TAB PO SCH ×2 (09:00→20:58)
[2020-10-16] MEDS: PREGABALIN 75 MG CAP(LYRICA) PO SCH ×2 (09:00→20:57)
[2020-10-16] MEDS: POTASSIUM CHLORIDE 10 MEQ SR TABLET PO SCH ×2 (09:01→20:57)
[2020-10-16] MEDS: levETIRAcetam 250MG TABLET (KEPPRA) PO SCH ×2 (09:01→20:57)
[2020-10-16] MEDS: ENOXAPARIN 40MG/0.4ML SYRINGE (J1650 PER 10MG) SC SCH (09:01)
--- NOTE | 2020-10-16 22:03 | IPNPDOC ---
Date Seen The patient was seen on 10/16/20. Progress Note SUBJECTIVE: Only complaints are left shoulder pain, no recent falls, no erythema or swelling noted. Also complains of left digit toenail that he says needs to be cut by podiatry. Wound Vac in place. Denies chest pain, n/v/d, fevers, chills, SOB. OBJECTIVE: PHYSICAL EXAMINATION: VITAL SIGNS: Please see below GENERAL: nad, resting in bed, HEENT: Face is symmetric. Tongue is midline. Moist mucous membranes. No jugular venous distention (JVD), thyromegaly or cervical lymphadenopathy. LUNGS: Clear to auscultation. No wheezing, rales or rhonchi. HEART: S1, S2. Sinus rhythm. ABDOMEN/BACK: Left-sided colostomy with yellow stool. MSK: left shoulder pain with rotation, no weakness noted; howeer, difficult to move past 90 degrees. INTEG: Sacral wound with wound vac. left heel 10x 8 cm pressure ulcer, left medial malleoli 1x1 cm dry scabbed pressure injury, right heel small d 7x4.5x2 cm, undermining 3 cm at 12 o'clock. Clean granulating tissue. : Rowley catheter in place. EXTREMITIES: He has chronic 1+ pitting edema in his bilateral lower extremities with a left ankle ulcer in the plantar surface with good granulation tissue. Right heel has a healed scar from previous ulcer. LABORATORY DATA: 10/08/2020: Complete blood count (CBC) and metabolic panel have been reviewed. ASSESSMENT: 75-year-old male who lives at home, wheelchair bound at baseline, with worsening lower extremity weakness due to spinal tumor resection in 1979 and multiple back surgeries, thoracic laminectomy and lumbar fusion, neuropathic Charcot joint, chronic bilateral heel ulcers and sacral coccygeal ulcer, admitted after mechanical fall after transferring on August 14, 2020, had an infected stage IV sacral decubitus with extended spectrum beta-lactamase (ESBL) Escherichia (E) coli, Enterococcus faecalis, treated with broad spectrum antibiotics and subsequently developed Clostridium (C) difficile colitis treated with oral vancomycin, causing contamination of the stool, requiring a diverting colostomy, Rowley catheter and wound VAC placement to his sacral decubitus. CURRENT DIAGNOSES: 1. Stage IV sacral decubitus present prior to hospital admission. 2. Neuropathic Charcot foot. 3. Methicillin-resistant Staphylococcus aureus (MRSA) of the right foot. 4. Bilateral heel ulcers status post debridement. 5. Chronic lower extremity weakness with neuropathy, wheelchair bound at baseline with history of spinal tumor with multiple lumbar surgeries with meningocele, pseudomeningocele, arachnoiditis in the past and cyst drainage of the lower back. 6. Neurogenic bladder requiring Rowley catheter placement. 7. Chronic back pain. 8. History of seizure disorder. 9. Osteomyelitis of the right distal tibia. 10. Clostridium (C) difficile colitis status post fidaxomicin then oral vancomycin. 11. Mechanical fall due to significant debility. 12. Free air in the abdomen, resolved, with no source of perforated viscus status post exploratory laparoscopy August 28, 2020, empirically treated with seven days of ertapenem. 13. Recurrent catheter-associated urinary tract infection. 14. Left shoulder pain PLAN: Dr. Joiner, Dr. Olivarez following. Plan is home when medically improved. Completed all courses of antibiotics. PT: "Patient participates in PT session and remains consistent with transfer performance, requiring SBA for bed to chair and Mod to max A to return to bed due to height of bed being higher than the chair. Patient is likely reaching his max potential for inpatient therapy. Recommendation: home with services". XR for left shoulder pain ordered for AM. VS, I&O, 24H, Fishbone Vital Signs/I&O Vital Signs Date Time Temp Pulse Resp B/P (MAP) Pulse Ox O2 Delivery O2 Flow Rate FiO2 10/16/20 20:58 18 10/16/20 06:00 98.4 80 110/62 (78) 95 Room Air I&O- Last 24 Hours up to 6 AM 10/16/20 06:00 Intake Total 240 ml Output Total 900 ml Balance -660 ml Chayo Chen MD October 16, 2020 22:03
[2020-10-17 06:00] VITALS: BP 108/64
[2020-10-17] MEDS: LACTOBACILLUS ACIDOPHILUS CAP (BACID) PO SCH ×2 (08:23→17:02)
[2020-10-17] MEDS: PREGABALIN 75 MG CAP(LYRICA) PO SCH ×2 (08:23→21:21)
[2020-10-17] MEDS: levETIRAcetam 250MG TABLET (KEPPRA) PO SCH ×2 (08:23→21:21)
[2020-10-17] MEDS: oxyCODONE 10 MG CR TAB PO SCH ×2 (08:24→21:22)
[2020-10-17] MEDS: POTASSIUM CHLORIDE 10 MEQ SR TABLET PO SCH ×2 (08:24→21:22)
[2020-10-17] MEDS: ENOXAPARIN 40MG/0.4ML SYRINGE (J1650 PER 10MG) SC SCH (08:25)
--- NOTE | 2020-10-17 09:59 | IPNPDOC ---
Subjective General Date Seen: October 16, 2020 Subject Chief Complaint/History The patient is a 75-year-old male admitted with a reason for visit of Uti,Weakness, Sacral Decubitus,Spinal Tumor. Patient was examined with nurse during dressing changes. No new complains. Wound vac is working properly. Current Medications Current Medications Current Medications Medications (Trade) Dose Ordered Sig/Mark Route PRN Reason Start Time Stop Time Status Last Admin Dose Admin Acetaminophen (Tylenol Tab) 650 mg Q4H PRN PO PAIN OR FEVER 08/14/20 01:25 10/10/20 21:47 Al Hydrox/Mg Hydrox/Simethicone (Mylanta) 30 ml DAILY PRN PO DYSPEPSIA 08/14/20 01:25 Cefepime HCl 2 gm/ Dextrose 50 ml @ 100 mls/hr Q12H IV 08/14/20 03:00 08/19/20 15:52 DC 08/19/20 15:26 Cholestyramine Resin (Questran) 4 gm QID PO 09/04/20 09:00 09/09/20 09:26 DC 09/06/20 21:38 Collagenase (SantyL) APPLY TO SACRUM DAILY TOP 08/22/20 09:00 08/24/20 12:51 DC 08/23/20 09:12 Collagenase (SantyL) APPLY TO SACRUM DAILYPRN PRN TOP SOILED WOUND DRESSING 08/22/20 14:10 08/24/20 12:51 DC Collagenase (SantyL) Right heel DAILY TOP 10/04/20 09:00 10/10/20 15:22 DC 10/10/20 08:35 Collagenase (SantyL) To sacrum. DAILY TOP 09/03/20 09:00 09/12/20 08:50 DC 09/11/20 08:30 Collagenase (SantyL) With bowel movements. C PRN TOP DIARRHEA 09/03/20 10:30 Dextrose (Dextrose 50%) 25 ml ASDIRECTED PRN IV SEE LABEL COMMENTS 08/28/20 15:00 Dextrose/Sodium Chloride 1,000 ml @ 75 mls/hr [id number] IV 08/28/20 15:00 09/04/20 08:10 DC 09/03/20 21:17 Dextrose/Sodium Chloride 1,000 ml @ 75 mls/hr [id number] IV 09/04/20 21:15 09/05/20 20:53 DC 09/05/20 10:11 Diatrizoate Meglum/ Diatrizoate Sod (Gastrografin) 10 ml Q30M PO 08/28/20 11:15 08/28/20 11:46 DC 08/28/20 11:34 Diphenoxylate HCl/ Atropine (Lomotil 2.5mg/ 0.025mg) 1 ea BID PO 09/09/20 21:00 09/17/20 19:13 DC 09/17/20 09:37 Diphenoxylate HCl/ Atropine (Lomotil 2.5mg/ 0.025mg) 1 ea BID PO 09/03/20 09:00 09/04/20 08:23 DC 09/03/20 21:15 Diphenoxylate HCl/ Atropine (Lomotil 2.5mg/ 0.025mg) 1 ea TID PO 09/04/20 09:00 09/09/20 09:26 DC 09/09/20 08:40 Docusate Sodium (Colace) 100 mg BID PO 08/14/20 09:00 08/19/20 15:44 DC 08/17/20 09:43 Enoxaparin Sodium (Lovenox) 40 mg DAILY SC 08/14/20 09:00 08/28/20 14:42 DC 08/28/20 09:36 Enoxaparin Sodium (Lovenox) 40 mg DAILY SC 09/17/20 09:00 10/17/20 08:25 Ertapenem 1 gm/ Sodium Chloride 50 ml @ 100 mls/hr Q24H IV 08/30/20 16:00 09/05/20 20:53 DC 09/05/20 16:36 Fentanyl Citrate (Sublimaze) 25 mcg Q5MP PRN IV PAIN LEVEL 5-10 08/24/20 13:05 08/24/20 13:16 DC 08/24/20 13:15 Fentanyl Citrate (Sublimaze) 25 mcg Q5MP PRN IV PAIN LEVEL 5-10 08/28/20 20:00 08/28/20 21:00 DC Fidaxomicin (Dificid) 200 mg BID PO 08/19/20 21:00 08/29/20 09:01 DC 08/28/20 22:42 Furosemide (Lasix) 40 mg DAILY PO 08/14/20 09:00 09/04/20 08:10 DC 09/03/20 10:11 Gabapentin (Neurontin) 600 mg BID PO 08/14/20 09:00 Hold Glucagon (Glucagon) 1 mg ASDIRECTED PRN SC SEE LABEL COMMENTS 08/28/20 15:00 Glucose (Glucose) 16 GM ASDIRECTED PRN PO SEE LABEL COMMENTS 08/28/20 15:00 Heparin Sodium (Heparin (Flush)) 200 units ASDIRECTED PRN IV SEE LABEL COMMENTS 08/24/20 16:20 09/21/20 10:10 DC Heparin Sodium (Heparin (Flush)) 200 units BID IV 09/10/20 09:00 09/21/20 10:10 DC 09/21/20 09:00 Heparin Sodium (Heparin (Flush)) 200 units PICC IV 08/24/20 18:00 09/09/20 19:22 DC 09/09/20 17:44 Home Med (Med Rec Complete!) ASDIRECTED XX 08/14/20 07:25 08/14/20 07:23 DC Hydromorphone HCl (Dilaudid) 0.2 mg Q5MP PRN IV PAIN LEVEL 4-7 08/24/20 13:05 08/24/20 14:05 DC 08/24/20 13:42 Lactated Ringer's 1,000 ml @ 100 mls/hr Q10H IV 08/24/20 13:05 08/24/20 14:05 DC Lactated Ringer's 1,000 ml @ 100 mls/hr Q10H IV 08/28/20 20:00 08/28/20 21:00 DC Lactobacillus Acidophilus (Bacid) 1 ea BIDWM PO 09/19/20 08:00 10/17/20 08:23 Levetiracetam (Keppra) 750 mg DAILY PO 08/14/20 09:00 10/17/20 08:23 Levetiracetam (Keppra) 1,000 mg QHS PO 08/14/20 21:00 10/16/20 20:57 Levofloxacin (Levaquin) 750 mg DAILY@06 PO 09/21/20 08:30 09/24/20 08:33 DC 09/24/20 05:35 Magnesium Hydroxide (Milk Of Magnesia) 30 ml DAILY PRN PO CONSTIPATION 08/14/20 01:25 08/15/20 01:48 Meropenem 1 gm/IV Miscellaneous Supplies 50 ml @ 100 mls/hr Q8H IV 09/17/20 11:00 09/21/20 08:24 DC 09/21/20 02:07 Metoclopramide HCl (REGLAN INJection) 10 mg Q6HP PRN IV NAUSEA OR VOMITING 08/28/20 20:00 08/28/20 21:00 DC Morphine Sulfate (Morphine Sulfate Inj) 2 mg Q3H PRN IV SEVERE PAIN (PS 8-10) 08/30/20 19:00 09/09/20 17:54 DC 08/31/20 15:34 Nystatin (Mycostatin Powder, Nystop) groin BID TOP 08/26/20 21:00 09/09/20 09:27 DC 09/07/20 09:07 Nystatin (Mycostatin Powder, Nystop) groin BID PRN TOP RASH/ITCHING 09/09/20 09:25 09/13/20 11:36 Ondansetron HCl (ZOFRAN INJection) 4 mg Q4HP PRN IV NAUSEA OR VOMITING 08/24/20 13:05 08/24/20 14:05 DC Ondansetron HCl (ZOFRAN INJection) 4 mg Q4HP PRN IV NAUSEA OR VOMITING 08/28/20 20:00 08/28/20 21:00 DC Oxycodone HCl (OxyCONTIN) 10 mg BID PO 10/11/20 21:00 10/17/20 08:24 Oxycodone HCl (OxyCONTIN) 10 mg BID PO 10/11/20 21:00 Cancel Oxycodone HCl (Roxicodone, Oxyir) 5 mg ASDIRECTED PRN PO PAIN LEVEL 1-4 08/24/20 13:05 08/24/20 14:05 DC 08/24/20 13:26 Oxycodone/ Acetaminophen (Percocet 5mg/ 325mg Tablet) 1 tab Q6HP PRN PO MODERATE PAIN (PS 5-7) 08/24/20 12:45 09/20/20 11:57 DC 09/15/20 21:12 Polyethylene Glycol (Miralax) 1 pkt BID PRN PO CONSTIPATION 08/14/20 22:15 08/28/20 18:55 DC 08/15/20 01:48 Potassium Chloride (Micro-K Extencaps) 20 meq BID PO 09/12/20 09:00 10/17/20 08:24 Potassium Chloride (Micro-K Extencaps) 20 meq DAILY PO 08/14/20 09:00 09/03/20 09:28 DC 09/02/20 09:59 Potassium Chloride (Micro-K Extencaps) 40 meq BID PO 09/03/20 09:00 09/12/20 07:57 DC 09/11/20 20:35 Pregabalin (Lyrica) 150 mg BID PO 08/14/20 09:00 10/17/20 08:23 Psyllium Hydrophilic Mucilloid (Metamucil) 1 pkt BID PO 09/01/20 09:00 09/04/20 08:23 DC 09/02/20 09:58 Sodium Chloride (Saline Lock Flush) 2 ml ASDIRECTED PRN IV SEE LABEL COMMENTS 08/14/20 10:50 08/26/20 14:24 DC Sodium Chloride (Saline Lock Flush) 2 ml SLF IV 08/14/20 14:00 08/26/20 14:24 DC 08/26/20 06:26 Sodium Chloride (Saline Lock Flush) 10 ml ASDIRECTED PRN IV SEE LABEL COMMENTS 08/24/20 16:20 09/21/20 10:10 DC 09/04/20 22:06 Sodium Chloride (Saline Lock Flush) 10 ml BID IV 09/10/20 09:00 09/21/20 10:10 DC 09/21/20 09:00 Sodium Chloride (Saline Lock Flush) 10 ml PICC IV 08/24/20 18:00 09/09/20 19:22 DC 09/09/20 17:44 Vancomycin HCl (First-Vancomycin 50(Firvanq)- 250mg/5ml) 125 mg BID PO 09/19/20 09:00 09/28/20 14:31 DC 09/28/20 08:30 Vancomycin HCl (First-Vancomycin 50(Firvanq)- 250mg/5ml) 125 mg Q6H PO 08/16/20 18:00 08/19/20 15:52 DC 08/19/20 12:01 Vancomycin HCl 500 mg/Dextrose 110 ml @ 110 mls/hr Q12H IV 08/14/20 14:00 08/15/20 14:13 DC 08/15/20 02:05 Vancomycin HCl 750 mg/IV Miscellaneous Supplies 1 each/ Sodium Chloride 275 ml @ 275 mls/hr Q12H IV 08/14/20 14:00 08/15/20 14:13 DC 08/15/20 03:19 Vancomycin HCl 750 mg/IV Miscellaneous Supplies 1 each/ Sodium Chloride 275 ml @ 275 mls/hr Q24H IV 08/16/20 16:00 08/23/20 23:59 DC 08/23/20 17:01 Vancomycin HCl 750 mg/IV Miscellaneous Supplies 1 each/ Sodium Chloride 275 ml @ 275 mls/hr Q24H IV 08/16/20 17:00 08/23/20 23:59 DC 08/23/20 18:54 Vancomycin HCl 750 mg/IV Miscellaneous Supplies 1 each/ Sodium Chloride 275 ml @ 275 mls/hr Q24H IV 09/18/20 14:00 09/18/20 15:17 DC Vancomycin HCl 750 mg/IV Miscellaneous Supplies 1 each/ Sodium Chloride 275 ml @ 275 mls/hr Q24H IV 09/18/20 15:00 09/18/20 15:17 DC Vancomycin HCl 1000 mg/IV Miscellaneous Supplies 1 each/ Sodium Chloride 270 ml @ 270 mls/hr Q12H IV 08/14/20 01:55 Cancel Vancomycin HCl 1000 mg/IV Miscellaneous Supplies 1 each/ Sodium Chloride 270 ml @ 270 mls/hr Q12H IV 08/15/20 14:00 08/16/20 15:28 DC 08/16/20 02:17 Vancomycin HCl 1000 mg/IV Miscellaneous Supplies 1 each/ Sodium Chloride 270 ml @ 270 mls/hr Q12H IV 09/17/20 09:35 09/17/20 12:28 DC Allergies Coded Allergies: linezolid (Verified Allergy, Unknown, 04/23/19) Objective Physical Examination Examination GENERAL APPEARANCE:Patient seen, laying in bed, awake, alert, and oriented. Comfortable, in no acute distress. SKIN: Warm and moist. Sacral pressure wound stage 4. Size: 4.5 x 6 x 1 cm, undermining 2 cm at 12 o'clock. Clean granulating tissue. 1 cm DTI at the base of the wound. No odor, minimal serous drainage. LUNGS: Clear to auscultation bilaterally. No wheezing appreciated. HEART: No chest wall abnormalities. Regular rate and rhythm with no murmurs appreciated. EXTREMITIES: No edema identified. No calf tenderness. Vital Signs Vital Signs Date Time Temp Pulse Resp B/P (MAP) Pulse Ox O2 Delivery O2 Flow Rate FiO2 10/17/20 08:24 16 10/17/20 06:00 98.5 77 108/64 (79) 93 Room Air I&Os I&O- Last 24 Hours up to 6 AM 10/17/20 05:59 Intake Total 1600 ml Output Total 700 ml Balance 900 ml Impression Stage IV sacral wound. Improving in size, necrosis, drainage. DTI will observe. Continue with wound vac therapy. Off loading. Nutrition. Plan / VTE VTE Prophylaxis Ordered?: Yes CHRISTOPHER HERNANDEZ DO October 17, 2020 09:59
--- NOTE | 2020-10-17 11:42 | REP ---
INDICATION: left shoulder pain. COMPARISON: None. TECHNIQUE: Three views of the left shoulder were performed. FINDINGS: The acromioclavicular and glenohumeral relationships are within normal limits. There is no acute fracture or destructive osseous lesion. IMPRESSION: Within normal limits <Electronically signed by Jose Warren > 10/17/20 1137
--- NOTE | 2020-10-17 11:46 | IPN ---
PROGRESS NOTE DATE: 10/17/2020 SUBJECTIVE: Patient seen and examined. Denies new complaints. Vitals are reviewed. He has remained afebrile. Labs are reviewed. White blood cell count 5.3. LOWER EXTREMITY EXAMINATION: Left heel ulceration significantly improved. There is slowly granular wound base with no necrotic tissue. ASSESSMENT AND PLAN: A 75-year-old male with pressure ulcerations both heels. Continue current wound care, Vashe, Hydrofera-Blue and strict off loading with foam heel protectors.
[2020-10-17] MEDS: CYCLOBENZAPRINE 5MG TABLET PO PRN (12:33)
[2020-10-17 14:00] VITALS: BP 110/64
[2020-10-18 06:09] VITALS: BP 111/65
[2020-10-18] MEDS: LACTOBACILLUS ACIDOPHILUS CAP (BACID) PO SCH ×2 (09:01→18:35)
[2020-10-18] MEDS: POTASSIUM CHLORIDE 10 MEQ SR TABLET PO SCH ×2 (09:02→21:08)
[2020-10-18] MEDS: oxyCODONE 10 MG CR TAB PO SCH ×2 (09:02→21:09)
[2020-10-18] MEDS: PREGABALIN 75 MG CAP(LYRICA) PO SCH ×2 (09:02→21:08)
[2020-10-18] MEDS: levETIRAcetam 250MG TABLET (KEPPRA) PO SCH ×2 (09:02→21:08)
[2020-10-18] MEDS: ENOXAPARIN 40MG/0.4ML SYRINGE (J1650 PER 10MG) SC SCH (09:02)
[2020-10-18] MEDS: CYCLOBENZAPRINE 5MG TABLET PO PRN (21:08)
[2020-10-19 06:00] VITALS: BP 112/63
[2020-10-19] MEDS: PREGABALIN 75 MG CAP(LYRICA) PO SCH ×2 (09:39→20:15)
[2020-10-19] MEDS: POTASSIUM CHLORIDE 10 MEQ SR TABLET PO SCH ×2 (09:40→20:15)
[2020-10-19] MEDS: ENOXAPARIN 40MG/0.4ML SYRINGE (J1650 PER 10MG) SC SCH (09:40)
[2020-10-19] MEDS: LACTOBACILLUS ACIDOPHILUS CAP (BACID) PO SCH ×2 (09:40→18:32)
[2020-10-19] MEDS: levETIRAcetam 250MG TABLET (KEPPRA) PO SCH ×2 (09:40→20:15)
[2020-10-19] MEDS: oxyCODONE 10 MG CR TAB PO SCH ×2 (09:41→20:16)
[2020-10-19] MEDS: CYCLOBENZAPRINE 5MG TABLET PO PRN (20:15)
[2020-10-19] MEDS: ACETAMINOPHEN TAB 650MG DOSE (2X325MG) PO PRN (20:16)
[2020-10-20 05:54] VITALS: BP 112/63
[2020-10-20] MEDS: levETIRAcetam 250MG TABLET (KEPPRA) PO SCH ×2 (08:49→20:36)
[2020-10-20] MEDS: PREGABALIN 75 MG CAP(LYRICA) PO SCH ×2 (08:49→20:35)
[2020-10-20] MEDS: LACTOBACILLUS ACIDOPHILUS CAP (BACID) PO SCH ×2 (08:49→18:08)
[2020-10-20] MEDS: oxyCODONE 10 MG CR TAB PO SCH ×2 (08:49→20:36)
[2020-10-20] MEDS: POTASSIUM CHLORIDE 10 MEQ SR TABLET PO SCH ×2 (08:50→20:35)
[2020-10-20] MEDS: ENOXAPARIN 40MG/0.4ML SYRINGE (J1650 PER 10MG) SC SCH (08:50)
[2020-10-20] MEDS: CYCLOBENZAPRINE 5MG TABLET PO PRN (20:36)
[2020-10-20] MEDS: ACETAMINOPHEN TAB 650MG DOSE (2X325MG) PO PRN (20:36)
[2020-10-20] MEDS: MOM 30ML SUSPENSION UDC PO PRN (20:36)
[2020-10-21 06:00] VITALS: BP 113/62
[2020-10-21 10:00] VITALS: BP 114/60
[2020-10-21] MEDS: LACTOBACILLUS ACIDOPHILUS CAP (BACID) PO SCH ×2 (10:01→17:26)
[2020-10-21] MEDS: PREGABALIN 75 MG CAP(LYRICA) PO SCH ×2 (10:02→21:46)
[2020-10-21] MEDS: POTASSIUM CHLORIDE 10 MEQ SR TABLET PO SCH ×2 (10:02→21:46)
[2020-10-21] MEDS: oxyCODONE 10 MG CR TAB PO SCH ×2 (10:02→21:47)
[2020-10-21] MEDS: ENOXAPARIN 40MG/0.4ML SYRINGE (J1650 PER 10MG) SC SCH (10:03)
[2020-10-21] MEDS: levETIRAcetam 250MG TABLET (KEPPRA) PO SCH ×2 (10:03→21:46)
[2020-10-21] MEDS: CYCLOBENZAPRINE 5MG TABLET PO PRN (21:46)
[2020-10-21] MEDS: ACETAMINOPHEN TAB 650MG DOSE (2X325MG) PO PRN (21:47)
[2020-10-22] MEDS: MOM 30ML SUSPENSION UDC PO PRN (05:02)
[2020-10-22 06:00] VITALS: BP 108/69
[2020-10-22] MEDS: PREGABALIN 75 MG CAP(LYRICA) PO SCH ×2 (08:42→21:00)
[2020-10-22] MEDS: LACTOBACILLUS ACIDOPHILUS CAP (BACID) PO SCH ×2 (08:42→19:00)
[2020-10-22] MEDS: POTASSIUM CHLORIDE 10 MEQ SR TABLET PO SCH ×2 (08:43→21:01)
[2020-10-22] MEDS: levETIRAcetam 250MG TABLET (KEPPRA) PO SCH ×2 (08:43→21:01)
[2020-10-22] MEDS: ENOXAPARIN 40MG/0.4ML SYRINGE (J1650 PER 10MG) SC SCH (08:43)
[2020-10-22] MEDS: oxyCODONE 10 MG CR TAB PO SCH ×2 (08:43→21:00)
[2020-10-22 10:20] LABS: HEMATOCRIT 39.5 % (42.0-52.0); HEMOGLOBIN 12.7 g/dl (13.5-17.5); MEAN CORPUSCULAR HEMOGLOBIN 29.9 pg (27.0-33.0); MEAN CORPUSCULAR HGB CONC 32.2 g/dl (32.0-36.5); MEAN CORPUSCULAR VOLUME 92.9 fl (80.0-96.0); PLATELET COUNT, AUTOMATED 147 10^3/uL (150-450); RED BLOOD COUNT 4.25 10^6/uL (4.30-6.10); WHITE BLOOD COUNT 4.6 10^3/uL (4.0-10.0)
[2020-10-22 10:57] LABS: BLOOD UREA NITROGEN 15 MG/DL (7-18); CALCIUM LEVEL 8.5 MG/DL (8.8-10.2); CARBON DIOXIDE LEVEL 27 MEQ/L (21-32); CHLORIDE LEVEL 106 MEQ/L (98-107); CREATININE FOR GFR 0.34 MG/DL (0.70-1.30); GLOMERULAR FILTRATION RATE > 60.0 (>42); GLUCOSE, FASTING 85 MG/DL (70-100); SODIUM LEVEL 138 MEQ/L (136-145)
[2020-10-22] MEDS: CYCLOBENZAPRINE 5MG TABLET PO PRN (21:06)
[2020-10-23 06:00] VITALS: BP 170/81
[2020-10-23] MEDS: POTASSIUM CHLORIDE 10 MEQ SR TABLET PO SCH ×2 (09:00→21:32)
[2020-10-23] MEDS: LACTOBACILLUS ACIDOPHILUS CAP (BACID) PO SCH ×2 (09:54→18:57)
[2020-10-23] MEDS: levETIRAcetam 250MG TABLET (KEPPRA) PO SCH ×2 (09:54→21:32)
[2020-10-23] MEDS: oxyCODONE 10 MG CR TAB PO SCH ×2 (09:54→21:32)
[2020-10-23] MEDS: PREGABALIN 75 MG CAP(LYRICA) PO SCH ×2 (09:54→21:32)
[2020-10-23] MEDS: ENOXAPARIN 40MG/0.4ML SYRINGE (J1650 PER 10MG) SC SCH (09:55)
[2020-10-23] MEDS: CYCLOBENZAPRINE 5MG TABLET PO PRN (21:32)
[2020-10-24 06:00] VITALS: BP 110/68
[2020-10-24] MEDS: levETIRAcetam 250MG TABLET (KEPPRA) PO SCH ×2 (08:44→22:06)
[2020-10-24] MEDS: LACTOBACILLUS ACIDOPHILUS CAP (BACID) PO SCH ×2 (08:44→18:31)
[2020-10-24] MEDS: oxyCODONE 10 MG CR TAB PO SCH ×2 (08:45→22:09)
[2020-10-24] MEDS: ENOXAPARIN 40MG/0.4ML SYRINGE (J1650 PER 10MG) SC SCH (08:45)
[2020-10-24] MEDS: PREGABALIN 75 MG CAP(LYRICA) PO SCH ×2 (08:45→22:07)
[2020-10-24] MEDS: POTASSIUM CHLORIDE 10 MEQ SR TABLET PO SCH ×2 (08:45→22:06)
--- NOTE | 2020-10-24 13:55 | IPNPDOC ---
Subjective General Date Seen: October 24, 2020 Subject Chief Complaint/History The patient is a 75-year-old male admitted with a reason for visit of Uti,Weakness, Sacral Decubitus,Spinal Tumor. Patient seen and examined at the bedside. Wound vac functioning well. Current Medications Current Medications Current Medications Medications (Trade) Dose Ordered Sig/Mark Route PRN Reason Start Time Stop Time Status Last Admin Dose Admin Acetaminophen (Tylenol Tab) 650 mg Q4H PRN PO PAIN OR FEVER 08/14/20 01:25 10/21/20 21:47 Al Hydrox/Mg Hydrox/Simethicone (Mylanta) 30 ml DAILY PRN PO DYSPEPSIA 08/14/20 01:25 Cefepime HCl 2 gm/ Dextrose 50 ml @ 100 mls/hr Q12H IV 08/14/20 03:00 08/19/20 15:52 DC 08/19/20 15:26 Cholestyramine Resin (Questran) 4 gm QID PO 09/04/20 09:00 09/09/20 09:26 DC 09/06/20 21:38 Collagenase (SantyL) APPLY TO SACRUM DAILY TOP 08/22/20 09:00 08/24/20 12:51 DC 08/23/20 09:12 Collagenase (SantyL) APPLY TO SACRUM DAILYPRN PRN TOP SOILED WOUND DRESSING 08/22/20 14:10 08/24/20 12:51 DC Collagenase (SantyL) Right heel DAILY TOP 10/04/20 09:00 10/10/20 15:22 DC 10/10/20 08:35 Collagenase (SantyL) To sacrum. DAILY TOP 09/03/20 09:00 09/12/20 08:50 DC 09/11/20 08:30 Collagenase (SantyL) With bowel movements. WDC PRN TOP DIARRHEA 09/03/20 10:30 Cyclobenzaprine HCl (Flexeril) 5 mg TIDP PRN PO SPASMS 10/17/20 10:25 10/23/20 21:32 Dextrose (Dextrose 50%) 25 ml ASDIRECTED PRN IV SEE LABEL COMMENTS 08/28/20 15:00 Dextrose/Sodium Chloride 1,000 ml @ 75 mls/hr [id number] IV 08/28/20 15:00 09/04/20 08:10 DC 09/03/20 21:17 Dextrose/Sodium Chloride 1,000 ml @ 75 mls/hr [id number] IV 09/04/20 21:15 09/05/20 20:53 DC 09/05/20 10:11 Diatrizoate Meglum/ Diatrizoate Sod (Gastrografin) 10 ml Q30M PO 08/28/20 11:15 08/28/20 11:46 DC 08/28/20 11:34 Diphenoxylate HCl/ Atropine (Lomotil 2.5mg/ 0.025mg) 1 ea BID PO 09/09/20 21:00 09/17/20 19:13 DC 09/17/20 09:37 Diphenoxylate HCl/ Atropine (Lomotil 2.5mg/ 0.025mg) 1 ea BID PO 09/03/20 09:00 09/04/20 08:23 DC 09/03/20 21:15 Diphenoxylate HCl/ Atropine (Lomotil 2.5mg/ 0.025mg) 1 ea TID PO 09/04/20 09:00 09/09/20 09:26 DC 09/09/20 08:40 Docusate Sodium (Colace) 100 mg BID PO 08/14/20 09:00 08/19/20 15:44 DC 08/17/20 09:43 Enoxaparin Sodium (Lovenox) 40 mg DAILY SC 08/14/20 09:00 08/28/20 14:42 DC 08/28/20 09:36 Enoxaparin Sodium (Lovenox) 40 mg DAILY SC 09/17/20 09:00 10/24/20 08:45 Ertapenem 1 gm/ Sodium Chloride 50 ml @ 100 mls/hr Q24H IV 08/30/20 16:00 09/05/20 20:53 DC 09/05/20 16:36 Fentanyl Citrate (Sublimaze) 25 mcg Q5MP PRN IV PAIN LEVEL 5-10 08/24/20 13:05 08/24/20 13:16 DC 08/24/20 13:15 Fentanyl Citrate (Sublimaze) 25 mcg Q5MP PRN IV PAIN LEVEL 5-10 08/28/20 20:00 08/28/20 21:00 DC Fidaxomicin (Dificid) 200 mg BID PO 08/19/20 21:00 08/29/20 09:01 DC 08/28/20 22:42 Furosemide (Lasix) 40 mg DAILY PO 08/14/20 09:00 09/04/20 08:10 DC 09/03/20 10:11 Gabapentin (Neurontin) 600 mg BID PO 08/14/20 09:00 Hold Glucagon (Glucagon) 1 mg ASDIRECTED PRN SC SEE LABEL COMMENTS 08/28/20 15:00 Glucose (Glucose) 16 GM ASDIRECTED PRN PO SEE LABEL COMMENTS 08/28/20 15:00 Heparin Sodium (Heparin (Flush)) 200 units ASDIRECTED PRN IV SEE LABEL COMMENTS 08/24/20 16:20 09/21/20 10:10 DC Heparin Sodium (Heparin (Flush)) 200 units BID IV 09/10/20 09:00 09/21/20 10:10 DC 09/21/20 09:00 Heparin Sodium (Heparin (Flush)) 200 units PICC IV 08/24/20 18:00 09/09/20 19:22 DC 09/09/20 17:44 Home Med (Med Rec Complete!) ASDIRECTED XX 08/14/20 07:25 08/14/20 07:23 DC Hydromorphone HCl (Dilaudid) 0.2 mg Q5MP PRN IV PAIN LEVEL 4-7 08/24/20 13:05 08/24/20 14:05 DC 08/24/20 13:42 Lactated Ringer's 1,000 ml @ 100 mls/hr Q10H IV 08/24/20 13:05 08/24/20 14:05 DC Lactated Ringer's 1,000 ml @ 100 mls/hr Q10H IV 08/28/20 20:00 08/28/20 21:00 DC Lactobacillus Acidophilus (Bacid) 1 ea BIDWM PO 09/19/20 08:00 10/24/20 08:44 Levetiracetam (Keppra) 750 mg DAILY PO 08/14/20 09:00 10/24/20 08:44 Levetiracetam (Keppra) 1,000 mg QHS PO 08/14/20 21:00 10/23/20 21:32 Levofloxacin (Levaquin) 750 mg DAILY@06 PO 09/21/20 08:30 09/24/20 08:33 DC 09/24/20 05:35 Magnesium Hydroxide (Milk Of Magnesia) 30 ml DAILY PRN PO CONSTIPATION 08/14/20 01:25 10/22/20 05:02 Meropenem 1 gm/IV Miscellaneous Supplies 50 ml @ 100 mls/hr Q8H IV 09/17/20 11:00 09/21/20 08:24 DC 09/21/20 02:07 Metoclopramide HCl (REGLAN INJection) 10 mg Q6HP PRN IV NAUSEA OR VOMITING 08/28/20 20:00 08/28/20 21:00 DC Morphine Sulfate (Morphine Sulfate Inj) 2 mg Q3H PRN IV SEVERE PAIN (PS 8-10) 08/30/20 19:00 09/09/20 17:54 DC 08/31/20 15:34 Nystatin (Mycostatin Powder, Nystop) groin BID TOP 08/26/20 21:00 09/09/20 09:27 DC 09/07/20 09:07 Nystatin (Mycostatin Powder, Nystop) groin BID PRN TOP RASH/ITCHING 09/09/20 09:25 09/13/20 11:36 Ondansetron HCl (ZOFRAN INJection) 4 mg Q4HP PRN IV NAUSEA OR VOMITING 08/24/20 13:05 08/24/20 14:05 DC Ondansetron HCl (ZOFRAN INJection) 4 mg Q4HP PRN IV NAUSEA OR VOMITING 08/28/20 20:00 08/28/20 21:00 DC Oxycodone HCl (OxyCONTIN) 10 mg BID PO 10/11/20 21:00 10/24/20 08:45 Oxycodone HCl (OxyCONTIN) 10 mg BID PO 10/11/20 21:00 Cancel Oxycodone HCl (Roxicodone, Oxyir) 5 mg ASDIRECTED PRN PO PAIN LEVEL 1-4 08/24/20 13:05 08/24/20 14:05 DC 08/24/20 13:26 Oxycodone/ Acetaminophen (Percocet 5mg/ 325mg Tablet) 1 tab Q6HP PRN PO MODERATE PAIN (PS 5-7) 08/24/20 12:45 09/20/20 11:57 DC 09/15/20 21:12 Polyethylene Glycol (Miralax) 1 pkt BID PRN PO CONSTIPATION 08/14/20 22:15 08/28/20 18:55 DC 08/15/20 01:48 Potassium Chloride (Micro-K Extencaps) 20 meq BID PO 09/12/20 09:00 10/24/20 08:45 Potassium Chloride (Micro-K Extencaps) 20 meq DAILY PO 08/14/20 09:00 09/03/20 09:28 DC 09/02/20 09:59 Potassium Chloride (Micro-K Extencaps) 40 meq BID PO 09/03/20 09:00 09/12/20 07:57 DC 09/11/20 20:35 Pregabalin (Lyrica) 150 mg BID PO 08/14/20 09:00 10/24/20 08:45 Psyllium Hydrophilic Mucilloid (Metamucil) 1 pkt BID PO 09/01/20 09:00 09/04/20 08:23 DC 09/02/20 09:58 Sodium Chloride (Saline Lock Flush) 2 ml ASDIRECTED PRN IV SEE LABEL COMMENTS 08/14/20 10:50 08/26/20 14:24 DC Sodium Chloride (Saline Lock Flush) 2 ml SLF IV 08/14/20 14:00 08/26/20 14:24 DC 08/26/20 06:26 Sodium Chloride (Saline Lock Flush) 10 ml ASDIRECTED PRN IV SEE LABEL COMMENTS 08/24/20 16:20 09/21/20 10:10 DC 09/04/20 22:06 Sodium Chloride (Saline Lock Flush) 10 ml BID IV 09/10/20 09:00 09/21/20 10:10 DC 09/21/20 09:00 Sodium Chloride (Saline Lock Flush) 10 ml PICC IV 08/24/20 18:00 09/09/20 19:22 DC 09/09/20 17:44 Vancomycin HCl (First-Vancomycin 50(Firvanq)- 250mg/5ml) 125 mg BID PO 09/19/20 09:00 09/28/20 14:31 DC 09/28/20 08:30 Vancomycin HCl (First-Vancomycin 50(Firvanq)- 250mg/5ml) 125 mg Q6H PO 08/16/20 18:00 08/19/20 15:52 DC 08/19/20 12:01 Vancomycin HCl 500 mg/Dextrose 110 ml @ 110 mls/hr Q12H IV 08/14/20 14:00 08/15/20 14:13 DC 08/15/20 02:05 Vancomycin HCl 750 mg/IV Miscellaneous Supplies 1 each/ Sodium Chloride 275 ml @ 275 mls/hr Q12H IV 08/14/20 14:00 08/15/20 14:13 DC 08/15/20 03:19 Vancomycin HCl 750 mg/IV Miscellaneous Supplies 1 each/ Sodium Chloride 275 ml @ 275 mls/hr Q24H IV 08/16/20 16:00 08/23/20 23:59 DC 08/23/20 17:01 Vancomycin HCl 750 mg/IV Miscellaneous Supplies 1 each/ Sodium Chloride 275 ml @ 275 mls/hr Q24H IV 08/16/20 17:00 08/23/20 23:59 DC 08/23/20 18:54 Vancomycin HCl 750 mg/IV Miscellaneous Supplies 1 each/ Sodium Chloride 275 ml @ 275 mls/hr Q24H IV 09/18/20 14:00 09/18/20 15:17 DC Vancomycin HCl 750 mg/IV Miscellaneous Supplies 1 each/ Sodium Chloride 275 ml @ 275 mls/hr Q24H IV 09/18/20 15:00 09/18/20 15:17 DC Vancomycin HCl 1000 mg/IV Miscellaneous Supplies 1 each/ Sodium Chloride 270 ml @ 270 mls/hr Q12H IV 08/14/20 01:55 Cancel Vancomycin HCl 1000 mg/IV Miscellaneous Supplies 1 each/ Sodium Chloride 270 ml @ 270 mls/hr Q12H IV 08/15/20 14:00 08/16/20 15:28 DC 08/16/20 02:17 Vancomycin HCl 1000 mg/IV Miscellaneous Supplies 1 each/ Sodium Chloride 270 ml @ 270 mls/hr Q12H IV 09/17/20 09:35 09/17/20 12:28 DC Allergies Coded Allergies: linezolid (Verified Allergy, Unknown, 04/23/19) Objective Physical Examination Examination GENERAL APPEARANCE:Patient seen, laying in bed, awake, alert, and oriented. Comfortable, in no acute distress. SKIN: Warm and moist. Sacral wound stage 4: 3x4.5x1 cm. Clean granulating tissue. No odor. Serous exudate. LUNGS: Clear to auscultation bilaterally. No wheezing appreciated. HEART: No chest wall abnormalities. Regular rate and rhythm with no murmurs appreciated. ABDOMEN: Abdomen is soft, non-tender, non-distended. EXTREMITIES: No edema identified. No calf tenderness. Vital Signs Vital Signs Date Time Temp Pulse Resp B/P (MAP) Pulse Ox O2 Delivery O2 Flow Rate FiO2 10/24/20 08:45 18 10/24/20 06:00 97.7 72 110/68 (82) 95 Room Air I&Os I&O- Last 24 Hours up to 6 AM 10/24/20 05:59 Intake Total 1640 ml Output Total 750 ml Balance 890 ml Laboratory Data CBC/BMP Laboratory Tests 10/23/20 15:45 Impression Sacral wound stage 4. Doing well, improving in size. Continue with wound vac at home. Keep Hydrofera blue, if wound vac malfunctions. [facility] wound care clinic after discharge. Plan / VTE VTE Prophylaxis Ordered?: Yes CHRISTOPHER HERNANDEZ DO October 24, 2020 13:55
[2020-10-25 06:00] VITALS: BP 110/68
[2020-10-25] MEDS: levETIRAcetam 250MG TABLET (KEPPRA) PO SCH (09:06)
[2020-10-25] MEDS: ENOXAPARIN 40MG/0.4ML SYRINGE (J1650 PER 10MG) SC SCH (09:06)
[2020-10-25] MEDS: PREGABALIN 75 MG CAP(LYRICA) PO SCH (09:06)
[2020-10-25] MEDS: LACTOBACILLUS ACIDOPHILUS CAP (BACID) PO SCH (09:07)
[2020-10-25] MEDS: POTASSIUM CHLORIDE 10 MEQ SR TABLET PO SCH (09:07)
[2020-10-25] MEDS: oxyCODONE 10 MG CR TAB PO SCH (09:08)
[2020-10-25] MEDS ORDERED: OXYC-403 PO (10:06)
[2020-10-25] MEDS ORDERED: RISATAB3 PO (10:06)
--- NOTE | 2020-10-25 13:14 | DSES ---
DISCHARGE SUMMARY DATE OF ADMISSION: 08/14/2020 DATE OF DISCHARGE: 10/25/2020 Patient was changed to alternate level of care (ALC) [facility] facility (SNF) status on 09/05/2020. PRIMARY DISCHARGE DIAGNOSES: 1. Infected stage IV sacral decubitus status post debridement, diverting colostomy, wound vacuum assisted closure (VAC), extended spectrum beta-lactamase (ESBL) and anaerobic on wound culture. 2. Clostridium (C) difficile colitis, completed 10 days of fidaxomicin. 3. Recurrent mechanical falls at home. 4. Enterococcus urinary tract infection with chronic indwelling Rowley catheter. 5. Free air in the abdomen with no source of perforated viscus on exploratory laparoscopy on 08/28/2020. 6. Seizure disorder. 7. 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 8. Chronic back pain status post laminectomy syndrome. 9. Chronic leg weakness due to chronic neuropathy, wheelchair-bound, status post surgery for lumbar spinal tumor and multiple followup surgeries with history of meningocele, pseudomeningocele, arachnoiditis, cyst drainage from the lower back in 2014. 10. Neuropathic Charcot foot, methicillin-resistant Staphylococcus aureus (MRSA) of the right foot and bilateral heel ulcers, chronic. 11. Chronic osteomyelitis of the right distal fibula. 12. Stage IV decubitus prior to hospital admission. 13. Free air in the abdomen with no signs of perforated viscus. 14. Recurrent catheter-associated urinary tract infection. 15. Chronic left shoulder pain. DISCHARGE MEDICATIONS: - Bacid one tablet by mouth twice a day with meals - oxycodone 10 mg twice a day - gabapentin 600 mg twice a day - levetiracetam 750 mg daily, 1 gram at bedtime - potassium 20 mEq daily - pregabalin 150 mg twice a day DISCHARGE INSTRUCTIONS: Wound VAC to be managed outpatient by Dr. Webber. Plastic surgical followup within one week of discharge by Dr. Joiner; general surgery, Dr. Rivera, for wound debridement; Dr. Lozano for bilateral heel ulcers or Dr. Webber for chronic heel ulcer management. PROCEDURES DURING THIS ADMISSION: 1. 08/24/2020: Dr. Maude Joiner, irrigation and debridement of sacral wound measuring 5 x 7 x 1.5 cm. 2. 08/24/2020: Laparoscopic transverse colostomy placement due to sacral wound, fecal incontinence secondary to spinal cord tumor. 3. 08/28/2020: Diagnostic laparoscopy for free air with normal bowel. No signs of perforation. Wound VAC managed by Dr. Maude Joiner. HOSPITAL COURSE: This is a 75-year-old male who lives at home, wheelchair-bound at baseline, presented due to worsening lower extremity weakness from spinal tumor resection 1979 with multiple back surgeries, thoracic laminectomy and lumbar fusion, neuropathic, Charcot joint, bilateral chronic heel ulcers and sacral coccygeal ulcers admitted after mechanical fall and lower extremity weakness on 08/14/2020. At that time, patient was found to have an infected stage IV decubitus with extended spectrum beta-lactamase, Escherichia (E) coli, Enterococcus faecalis with bilateral heel decubitus ulcers. At home, patient was trying to transfer from his wheelchair to the toilet and slipped and fell. Emergency Medical Services (EMS) brought the patient in. He had a left heel unstagable ulcer measuring 6 x 8 x 3.8 cm, full thickness with eschar. Left medial malleolus had another wound measuring 2.1 x 1.2 cm with left Achilles tendon, has a wound measuring 3.4 x 1.6 right heel with a small ulcer measuring 1.5 x 1 cm, debrided by Dr. Olivarez. Patient had a decubitus ulcer on the coccyx measuring 3.2 cm with tunneling around 11 o'clock with a meningocele bulge at T11-T12 with postoperative changes from the prior history of multiple surgeries in the past. Patient was initially given intravenous cefepime and intravenous (IV) vancomycin. Patient developed diarrhea, was diagnosed with Clostridium (C) difficile colitis. Infectious disease specialist was consulted and recommended discontinuation of IV cefepime and switching or oral Dificid and aggressive debridement and dressing changes. Patient underwent diverting colostomy due to continued fecal contamination of the sacral wound. Wound VAC was placed by Dr. Maude Joiner. Patient was found on repeat CT to have free air and underwent laparoscopy by Dr. Smith, but with no evidence of perforation. Patient had a urinary tract infection with Pseudomonas and Klebsiella due to chronic indwelling catheter. He had Escherichia (E) coli, extended spectrum beta-lactamase (ESBL), Bacteroides fragilis in his wound cultures. Wound VAC and dressing changes Thursday, Thursday and Thursday were done by Dr. Joiner. Patient completed a full course of antibiotics and oral Levaquin on September 24, 2020 with no recurrence of fever, white count for the catheter-associated urinary tract infection with Klebsiella and pseudomonas. Patient is kept on probiotics for his recent Clostridium (C) difficile colitis treated with oral vancomycin to prevent recurrence, prior use of Dificid. Dr. Olivarez continued to do bedside excisional wound dbridements of bilateral ulcers. The last one was done on 10/05/2020 and patient was continued on Hydrofera Blue dressings and offloading. Patient refused alf placement and was kept on alternate level of care (ALC)/[facility] facility (SNF) status from 09/05/2020 to day of discharge on 10/25/2020. PHYSICAL EXAMINATION ON DISCHARGE: Temperature 98, pulse 92, respiratory rate 18, blood pressure 110/68, 96% on room air. GENERAL: Patient is awake, alert and oriented to person, place and time, answering questions appropriately. LUNGS: Clear to auscultation. No wheezing, rales or rhonchi. HEART: S1, S2. Sinus rhythm. ABDOMEN: Left-sided colostomy with yellow stools. Soft, nontender, nondistended. Positive bowel sounds. Sacral wound has a wound VAC. EXTREMITIES: Patient has a left heel ulcer, 10 x 8 cm, left medial malleolar 1.1 with dry scab pressure injury, right heel small 7.4 x 5.2 cm with good granulation tissue. He has chronic trace to 1+ pitting edema, right heel has healed ulcer. LABORATORY DATA ON DISCHARGE: 10/22/2020: White count 6, hemoglobin 12, hematocrit 39, platelet count 147. Sodium 138, potassium 5, chloride 106, bicarbonate 27, BUN 15, creatinine 0.34, glucose 85. TIME SPENT ON DISCHARGE: Thirty minutes. MTDD
[2020-10-26] MEDS ORDERED: OXYC30TA72 (13:31)
[2020-10-26] MEDS ORDERED: OXYC-403 PO (17:08)
[2020-10-26] MEDS ORDERED: RISATAB3 PO (17:08)
[2020-10-26] MEDS ORDERED: OXYC-424 PO (17:14)
== END 2020-10-25 16:04 | disposition home health service (06) | DRG 329 ==
LOC: M ED 20:35 → EEVIPCON 08-14 01:22 → M ED INP 08-14 01:22 → ENRESERV 08-14 09:02 → M PCU 08-14 09:55 → M MS5PR 08-15 17:30
PROVIDERS: ADMIT Family Medicine; ATTEND General Practice
PROC: 0JBR0ZZ Excision of Left Foot Subcutaneous Tissue and Fascia, Open Approach (ICD-10-PCS; 2020-08-15)
PROC: 0LBW0ZZ Excision of Left Foot Tendon, Open Approach (ICD-10-PCS; 2020-08-15)
PROC: 0QB10ZZ Excision of Sacrum, Open Approach (ICD-10-PCS; 2020-08-24)
PROC: 02HV33Z Insertion of Infusion Device into Superior Vena Cava, Percutaneous Approach (ICD-10-PCS; 2020-08-24)
PROC: 0D1L4Z4 Bypass Transverse Colon to Cutaneous, Percutaneous Endoscopic Approach (ICD-10-PCS; principal; 2020-08-24 09:45)
PROC: 0WJP4ZZ Inspection of Gastrointestinal Tract, Percutaneous Endoscopic Approach (ICD-10-PCS; 2020-08-28)
PROC: 0JBR0ZZ Excision of Left Foot Subcutaneous Tissue and Fascia, Open Approach (ICD-10-PCS; 2020-10-05)
DX: A04.72 Enterocolitis due to Clostridium difficile, not specified as recurrent (principal); L89.154 Pressure ulcer of sacral region, stage 4; N39.0 Urinary tract infection, site not specified; G82.20 Paraplegia, unspecified; K91.89 Other postprocedural complications and disorders of digestive system; T83.511A Infection and inflammatory reaction due to indwelling urethral catheter, initial encounter; R29.6 Repeated falls; G96.198 Other disorders of meninges, not elsewhere classified; G40.909 Epilepsy, unspecified, not intractable, without status epilepticus; N31.9 Neuromuscular dysfunction of bladder, unspecified; G62.9 Polyneuropathy, unspecified; M96.1 Postlaminectomy syndrome, not elsewhere classified; B96.29 Other Escherichia coli [E. coli] as the cause of diseases classified elsewhere; Z79.899 Other long term (current) drug therapy; L89.619 Pressure ulcer of right heel, unspecified stage; L89.629 Pressure ulcer of left heel, unspecified stage; Z88.8 Allergy status to other drugs, medicaments and biological substances; R15.9 Full incontinence of feces; B96.1 Klebsiella pneumoniae [K. pneumoniae] as the cause of diseases classified elsewhere; B96.5 Pseudomonas (aeruginosa) (mallei) (pseudomallei) as the cause of diseases classified elsewhere

== ENCOUNTER 2020-10-26 13:18 | Inpatient (IN) | payer MEDICARE ==
[~2020-10-26] VITALS: Ht 188 cm; Wt 80.6 kg
[~2020-10-26 13:18] MED LIST changes: +CLON0.5T2 PO; +OXYC-403 PO; +RISATAB3 PO
[2020-10-26] MEDS ORDERED: OXYC30TA72 (13:31)
--- NOTE | 2020-10-26 14:23 | REP ---
INDICATION: weakness COMPARISON: 09/16/2020 TECHNIQUE: Portable AP view of the chest FINDINGS: The mediastinum and cardiac silhouette are stable and within normal limits for portable technique. The lung gonzalez are clear without acute consolidation, effusion, or pneumothorax. Skeletal structures are intact. IMPRESSION: No acute cardiopulmonary process appreciated. <Electronically signed by Thad Kenney > 10/26/20 [id number]
[2020-10-26 15:08] LABS: BASO % 0.5 % (0.0-1.0); EOS # 0.2 10^3/uL (0.0-0.5); EOS % 2.1 % (0.0-3.0); HEMATOCRIT 43.3 % (42.0-52.0); HEMOGLOBIN 13.5 g/dl (13.5-17.5); LYMPH # 1.3 10^3/uL (1.5-5.0); LYMPH % 15.2 % (24.0-44.0); MEAN CORPUSCULAR HEMOGLOBIN 29.2 pg (27.0-33.0); MEAN CORPUSCULAR HGB CONC 31.2 g/dl (32.0-36.5); MEAN CORPUSCULAR VOLUME 93.5 fl (80.0-96.0); MONO # 0.6 10^3/uL (0.0-0.8); MONO % 6.6 % (2.0-8.0); NEUTROPHILS # 6.6 10^3/uL (1.5-8.5); NEUTROPHILS % 75.4 % (36.0-66.0); PLATELET COUNT, AUTOMATED 290 10^3/uL (150-450); RED BLOOD COUNT 4.63 10^6/uL (4.30-6.10); WHITE BLOOD COUNT 8.7 10^3/uL (4.0-10.0)
[2020-10-26 15:32] LABS: ALBUMIN 2.9 GM/DL (3.2-5.2); ALT/SGPT 14 U/L (12-78); BILIRUBIN,DIRECT 0.2 MG/DL (0.0-0.2); BILIRUBIN,TOTAL 0.4 MG/DL (0.2-1.0); BLOOD UREA NITROGEN 16 MG/DL (7-18); CALCIUM LEVEL 9.4 MG/DL (8.8-10.2); CARBON DIOXIDE LEVEL 28 MEQ/L (21-32); CHLORIDE LEVEL 107 MEQ/L (98-107); CK-MB VALUE MASS < 1.0 NG/ML (<3.6); CPK CREATINE PHOSPHOKINASE 35 U/L (39-308); GLOMERULAR FILTRATION RATE > 60.0 (>42); GLUCOSE, FASTING 96 MG/DL (70-100); MB/CK RELATIVE INDEX 2.86 (< OR =4); POTASSIUM SERUM 4.2 MEQ/L (3.5-5.1); SODIUM LEVEL 141 MEQ/L (136-145); TOTAL PROTEIN 6.9 GM/DL (6.4-8.2); TROPONIN I < 0.02 NG/ML (< 0.10)
[2020-10-26] MEDS ORDERED: RISATAB3 PO (17:08)
[2020-10-26] MEDS ORDERED: OXYC-403 PO (17:08)
[2020-10-26] MEDS ORDERED: OXYC-424 PO (17:14)
[2020-10-26 17:39] LABS: RSV AMPLIFICATION NEGATIVE (NEGATIVE)
--- NOTE | 2020-10-26 19:04 | HPEPDOC ---
[facility] Medical History & Physical Date of Admission October 26, 2020 Date of Service: October 26, 2020 Attending Physician: LEORA WILCOX MD History and Physical CHIEF COMPLAINT: Inability to care for self at home. HISTORY OF PRESENT ILLNESS: 75-year-old male who lives at home alone, wheelchair-bound at baseline who presents to due to inability to care for himself at home less than [address] being discharged home from [facility] after a prolonged hospital stay for which he had originally presented for acute on chronic weakness with a fall on 08/14/2020 2/2 extensive conditions including a spinal tumor resection 1980 with multiple back surgeries, thoracic laminectomy and lumbar fusion, neuropathic, Charcot joint, with bilateral chronic heel ulcers and sacral coccygeal ulcers. During that hospitalization he was found to have an infected stage IV decubitus with extended spectrum beta-lactamase, Escherichia (E) coli, Enterococcus faecalis with bilateral heel decubitus ulcers. He had a left heel unstageable ulcer measuring 6 x 8 x 3.8 cm, full thickness with eschar. Left medial malleolus had another wound measuring 2.1 x 1.2 cm with left Achilles tendon, has a wound measuring 3.4 x 1.6 right heel with a small ulcer measuring 1.5 x 1 cm, debrided by Dr. Olivarez. Patient had a decubitus ulcer on the coccyx measuring 3.2 cm with tunneling around 11 o'clock with a meningocele bulge at T11-T12 with postoperative changes from the prior history of multiple surgeries in the past. His course was c/b Clostridium (C) difficile colitis i/s/o broad spectrum antibiotics that was treated to completion. He underwent diverting colostomy due to continued fecal contamination of the sacral wound. Wound VAC was placed by Dr. Maude Joiner and he was found on repeat CT to have free air and underwent laparoscopy by Dr. Smith, but with no evidence of perforation. He also had a urinary tract infection with Pseudomonas and Klebsiella due to chronic indwelling catheter that was also treated and ESBL and Bacteroides fragilis in his wound cultures that were also treated. Wound VAC remains in place with dressing changes Thursday, Thursday and Thursday. He completed a full course of antibiotics and oral Levaquin on September 24, 2020 with no recurrence of fever, white count for the catheter-associated urinary tract infection with Klebsiella and pseudomonas. He was kept on probiotics given his recent Clostridium (C) difficile colitis. With regard to foot ulcers, Dr. Olivarez continued to do bedside excisional wound dbridements of bilateral ulcers. The last one was done on 10/05/2020 and patient was continued on Hydrofera Blue dressings and offloading. The patient ultimately refused mcc placement and was kept on alternate level of care (ALC)/[facility] facility (SNF) status from 09/05/2020 to day of discharge on 10/25/2020. He now returned per the recommendation of FERNANDO araya on their first visit less than 24h after home discharge to return to the ED for admission for weakness and inability to care for himself as he was immobile at home and unable to care for himself. ROS was negative for fever, chills, chest pain, nausea, emesis. PAST MEDICAL HISTORY: 1. Infected stage IV sacral decubitus status post debridement, diverting colostomy, wound vacuum assisted closure (VAC), extended spectrum beta-lactamase (ESBL) and anaerobic on wound culture. 2. Clostridium (C) difficile colitis, completed 10 days of fidaxomicin. 3. Recurrent mechanical falls at home. 4. Enterococcus urinary tract infection with chronic indwelling Ware catheter. 5. Free air in the abdomen with no source of perforated viscus on exploratory laparoscopy on 08/28/2020. 6. Seizure disorder. 7. 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 8. Chronic back pain status post laminectomy syndrome. 9. Chronic leg weakness due to chronic neuropathy, wheelchair-bound, status post surgery for lumbar spinal tumor and multiple followup surgeries with history of meningocele, pseudomeningocele, arachnoiditis, cyst drainage from the lower back in 2014. 10. Neuropathic Charcot foot, methicillin-resistant Staphylococcus aureus (MRSA) of the right foot and bilateral heel ulcers, chronic. 11. Chronic osteomyelitis of the right distal fibula. 12. Stage IV decubitus prior to hospital admission. 13. Free air in the abdomen with no signs of perforated viscus. 14. Recurrent catheter-associated urinary tract infection. 15. Chronic left shoulder pain. PAST SURGICAL HISTORY: Resection of lumbar tumor 1980 Multiple back surgeries between 1979 and 1995 Left inguinal hernia repair Thoracic laminectomy/lumbar fusion Cyst drained on lower back November 2014 08/24/2020: Dr. Maude Joiner, irrigation and debridement of sacral wound measuring 5 x 7 x 1.5 cm. 08/24/2020: Laparoscopic transverse colostomy placement due to sacral wound, fecal incontinence secondary to spinal cord tumor. 08/28/2020: Diagnostic laparoscopy for free air with normal bowel. No signs of perforation. Wound VAC managed by Dr. Maude Joiner. SOCIAL HISTORY: Denies alcohol use actively states he quit drinking in his 50s Denies tobacco use actively states he quit smoking when he was 31 Denies illicit drug use States lives by himself at home FAMILY HISTORY: Non contributory ALLERGIES: Please see below. REVIEW OF SYSTEMS: 10 point review of systems complete all negative otherwise stated in HPI PHYSICAL EXAMINATION: GENERAL APPEARANCE: Laying in bed, awake, alert, and oriented. Comfortable, in no acute distress. SKIN: Warm and moist. Sacral wound with wound vac in place LUNGS: Clear to auscultation bilaterally. No wheezing appreciated. HEART: No chest wall abnormalities. Regular rate and rhythm with no murmurs appreciated. ABDOMEN: Normoactive bowel sounds. Abdomen is soft, non-tender, non-distended. EXTREMITIES: 2+ puffy pitting edema to knees, WWP PSYCH: AOx3 LABORATORY DATA: Reviewed IMAGING: None MICROBIOLOGY: Please see below. ASSESSMENT: 75-year-old male who lives at home alone, wheelchair-bound, with a very complex medical history, who presents due to due to inability to care for himself at home less than 24 hours after being discharged home from [facility] after a prolonged hospital stay who is now being admitted for weakness and inability to care for self for safe discharge planning. PLAN: Stage IV sacral decubitus -status post debridement, diverting colostomy and Wound-Vac managed by Plastic Surgery, consult plastics tomorrow -dressing change Thursday, Thursday, Thursday. Neuropathic Charcot foot/ MRSA of right foot/ Bilateral heel ulcers -s/p debridement -Managed by Dr Olivarez, consult for continued management Chronic Leg weakness due to chronic neuropathy / WC bound s/p surgery for lumber spinal tumor and multiple follow up surgeries from 1979 to 1995/ Meningocele/ pseudomeningocele/ arachnoiditis Cyst drainage from the lower back in 2014 persistent cystic swelling at the back surgery site for years. Flaccid Neurogenic bladder from spinal cord surgery -has chronic ware Chronic back pain post laminectomy syndrome - continue home scripts of gabapentin, lyrica, oxycodone History of seizure disorder -continue home keppra H/o C. Diff colitis, -completed 10 days of fidaxomicin -cont probiotic. Recent diverting colostomy and sacral wound: -to consult gen surg and plastics for wound vac DVT ppx: heparin Dispo: PFS consult for discussions on safe discharge planning. Vital Signs Vital Signs Date Time Temp Pulse Resp B/P (MAP) Pulse Ox O2 Delivery O2 Flow Rate FiO2 10/26/20 18:03 86 99 10/26/20 18:00 128/60 (82) 10/26/20 13:33 98.2 15 Room Air Laboratory Data Labs 24H Laboratory Tests 2 10/26/20 14:47: Immature Granulocyte % (Auto) 0.2, Neutrophils (%) (Auto) 75.4H, Lymphocytes (%) (Auto) 15.2L, Monocytes (%) (Auto) 6.6, Eosinophils (%) (Auto) 2.1, Basophils (%) (Auto) 0.5, Neutrophils # (Auto) 6.6, Lymphocytes # (Auto) 1.3L, Monocytes # (Auto) 0.6, Eosinophils # (Auto) 0.2, Basophils # (Auto) 0.0, Nucleated Red Blood Cells % (auto) 0.0, Anion Gap 6L, Glomerular Filtration Rate > 60.0, Calcium Level 9.4, Total Bilirubin 0.4, Direct Bilirubin 0.2, Aspartate Amino Transf (AST/SGOT) 11, Alanine Aminotransferase (ALT/SGPT) 14, Alkaline Phosphatase 99, Total Creatine Kinase 35L, Creatine Kinase MB < 1.0, Creatine Kinase MB Relative Index 2.86, Troponin I < 0.02, Total Protein 6.9, Albumin 2.9L, Albumin/Globulin Ratio 0.7 10/26/20 16:37: Coronavirus (COVID-19)(PCR) NEGATIVE, Influenza Type A (RT-PCR) NEGATIVE, Influenza Type B (RT-PCR) NEGATIVE, Respiratory Syncytial Virus (PCR) NEGATIVE CBC/BMP Laboratory Tests 10/26/20 14:47 Home Medications Scheduled Gabapentin (Gabapentin) 600 Mg Tablet, 600 MG PO BID L.acidoph/L.bulg/B.bif/S.therm (Annetta-Bid Caplet) 1 Each Tablet, 1 TAB PO BIDWM Levetiracetam (Levetiracetam) 750 Mg Tablet, 750 MG PO DAILY Levetiracetam (Keppra) 1,000 Mg Tablet, 1,000 MG PO QHS Oxycodone HCl (Oxycodone HCl ER) 10 Mg Tab.er.12h, 10 MG PO BID HAS NOT GOTTEN NEW MEDICATION Oxycodone HCl (Oxycodone HCl ER) 30 Mg Tab.er.12h, 30 MG PO BID Pregabalin (Pregabalin) 150 Mg Capsule, 150 MG PO BID Allergies Coded Allergies: linezolid (Verified Allergy, Unknown, 04/23/19) A-FIB/CHADSVASC A-FIB History Current/History of A-Fib/PAF?: No Current PO Anticoag Therapy: No Age/Risk Factor Scoring CHADSVASC: CHADSVASC Response (Comments) Value Age Risk Factor Age >/= 75 years old 2 Gender Risk Factor Male 0 Hx of CHF Yes 1 Hx of HTN Yes 1 Hx of Stroke/TIA/or VTE No 0 Hx of Diabetes No 0 Hx of Vascular Disease Yes 1 Total 5 Treatment Treatment ordered: NONE Reason Anticoagulant not given: Not indicated/[id number] LEORA WILCOX MD October 26, 2020 19:04
[2020-10-26] MEDS: LACTOBACILLUS ACIDOPHILUS CAP (BACID) PO SCH (19:23)
[2020-10-26] MEDS: levETIRAcetam 250MG TABLET (KEPPRA) PO SCH (19:25)
[2020-10-26] MEDS: oxyCODONE 10 MG CR TAB PO SCH (19:25)
[2020-10-26] MEDS: PREGABALIN 75 MG CAP(LYRICA) PO SCH (19:25)
[2020-10-26] MEDS: HEPARIN SOD (PORCINE) 5000UNITS/ML 1ML VIAL/SYRINGE SC SCH (19:28)
[2020-10-26] MEDS: GABAPENTIN 300 MG CAP PO SCH (19:30)
[2020-10-26 20:26] VITALS: BP 113/65
[2020-10-26] MEDS ORDERED: oxyCODONE 5MG TAB PO SCH (21:00)
[2020-10-27 06:24] VITALS: BP 102/59
[2020-10-27 06:40] LABS: ALBUMIN 2.6 GM/DL (3.2-5.2); ALT/SGPT 11 U/L (12-78); BILIRUBIN,TOTAL 0.4 MG/DL (0.2-1.0); BLOOD UREA NITROGEN 15 MG/DL (7-18); CALCIUM LEVEL 8.9 MG/DL (8.8-10.2); CARBON DIOXIDE LEVEL 31 MEQ/L (21-32); CHLORIDE LEVEL 106 MEQ/L (98-107); CREATININE FOR GFR 0.42 MG/DL (0.70-1.30); GLOMERULAR FILTRATION RATE > 60.0 (>42); GLUCOSE, FASTING 84 MG/DL (70-100); MAGNESIUM LEVEL 1.9 MG/DL (1.8-2.4); POTASSIUM SERUM 4.1 MEQ/L (3.5-5.1); SODIUM LEVEL 142 MEQ/L (136-145); TOTAL PROTEIN 6.3 GM/DL (6.4-8.2)
--- NOTE | 2020-10-27 08:24 | IPNPDOC ---
Text Note Date of Service The patient was seen on 10/27/20. NOTE PHYSICAL EXAMINATION: GENERAL APPEARANCE: Laying in bed, awake, alert, and oriented. Comfortable, in no acute distress. SKIN: Warm and moist. Sacral wound with wound vac in place LUNGS: Clear to auscultation bilaterally. No wheezing appreciated. HEART: No chest wall abnormalities. Regular rate and rhythm with no murmurs appreciated. ABDOMEN: Normoactive bowel sounds. Abdomen is soft, non-tender, non-distended. EXTREMITIES: 2+ puffy pitting edema to knees, WWP PSYCH: AOx3 LABORATORY DATA: Reviewed IMAGING: None MICROBIOLOGY: Please see below. ASSESSMENT: 75-year-old male who lives at home alone, wheelchair-bound, with a very complex medical history, who presents due to due to inability to care for himself at home less than 24 hours after being discharged home from [facility] after a prolonged hospital stay who is now being admitted for weakness and inability to care for self for safe discharge planning. PLAN: Inability to care for self at home: -Continues to refuse placement, reports that he would prefer to be in rehab for 2m and then after regaining his strength after resolution of sacral wound, he would like to be discharged home. -Will consult PFS Neuropathic Charcot foot/ MRSA of right foot/ Bilateral heel ulcers -s/p debridement -Managed by Dr Olivarez, consult him on Thursday for continued management, was to see him in the outpatient setting Chronic Leg weakness due to chronic neuropathy / WC bound s/p surgery for lumber spinal tumor and multiple follow up surgeries from 1979 to 1995/ Meningocele/ pseudomeningocele/ arachnoiditis Cyst drainage from the lower back in 2014 persistent cystic swelling at the back surgery site for years. Flaccid Neurogenic bladder from spinal cord surgery -has chronic ware Chronic back pain post laminectomy syndrome - continue home scripts of gabapentin, lyrica, oxycodone History of seizure disorder -continue home keppra H/o C. Diff colitis, -completed 10 days of fidaxomicin -cont probiotic. Recent diverting colostomy and sacral wound: -status post debridement, diverting colostomy and Wound-Vac managed by Plastic Surgery -dressing change Thursday, Thursday, Thursday. -to consult gen surg and plastics for wound vac review on Thursday. Was to see them in 7d, so no need for STAT consult over the weekend. DVT ppx: heparin Dispo: PFS consult for discussions on safe discharge planning. VS,Fishbone, I+O VS, Fishbone, I+O Laboratory Tests 10/26/20 14:47 10/27/20 05:44 Vital Signs Date Time Temp Pulse Resp B/P (MAP) Pulse Ox O2 Delivery O2 Flow Rate FiO2 10/27/20 06:24 97.7 92 20 102/59 (73) 94 Room Air I&O- Last 24 Hours up to 6 AM 10/27/20 06:00 Intake Total 120 ml Output Total 500 ml Balance -380 ml LEORA WILCOX MD October 27, 2020 08:24
[2020-10-27] MEDS: LACTOBACILLUS ACIDOPHILUS CAP (BACID) PO SCH ×2 (08:51→17:31)
[2020-10-27] MEDS: levETIRAcetam 250MG TABLET (KEPPRA) PO SCH ×2 (08:51→20:26)
[2020-10-27] MEDS: PREGABALIN 75 MG CAP(LYRICA) PO SCH ×2 (08:51→20:27)
[2020-10-27] MEDS: GABAPENTIN 300 MG CAP PO SCH ×2 (08:51→20:26)
--- NOTE | 2020-10-27 08:51 | ECGEPIP ---
[facility] - ED Test Date: 2020-10-26 Pat Name: KIA PAREKH Department: Room: - Gender: Male Family Law Paralegal: james : 1945 Requested By: BRYAN GARCIA Order Number: [id number] Reading MD: Danitza Oakley Measurements Intervals [place] Rate: 87 P: 69 MN: 158 QRS: -11 QRSD: 96 T: 63 QT: 370 QTc: 445 Interpretive Statements Normal sinus rhythm decreased rate 08/13/20 Electronically Signed on 10-27-2020 8:51:13 EDT by Danitza Oakley
[2020-10-27] MEDS: oxyCODONE 10 MG CR TAB PO SCH ×2 (08:52→20:27)
[2020-10-27] MEDS: HEPARIN SOD (PORCINE) 5000UNITS/ML 1ML VIAL/SYRINGE SC SCH ×2 (08:52→20:27)
[2020-10-27 14:00] VITALS: BP 100/60
[2020-10-27] MEDS: ACETAMINOPHEN TAB 650MG DOSE (2X325MG) PO PRN (20:28)
[2020-10-27 20:52] VITALS: BP 109/60
[2020-10-28 06:00] VITALS: BP 93/54
[2020-10-28] MEDS: levETIRAcetam 250MG TABLET (KEPPRA) PO SCH ×2 (08:34→20:19)
[2020-10-28] MEDS: LACTOBACILLUS ACIDOPHILUS CAP (BACID) PO SCH ×2 (08:34→18:33)
[2020-10-28] MEDS: PREGABALIN 75 MG CAP(LYRICA) PO SCH ×2 (08:34→20:19)
[2020-10-28] MEDS: oxyCODONE 10 MG CR TAB PO SCH ×2 (08:35→20:20)
[2020-10-28] MEDS: GABAPENTIN 300 MG CAP PO SCH ×2 (08:35→20:19)
[2020-10-28] MEDS: HEPARIN SOD (PORCINE) 5000UNITS/ML 1ML VIAL/SYRINGE SC SCH ×2 (08:36→20:21)
--- NOTE | 2020-10-28 10:56 | IPNPDOC ---
Text Note Date of Service The patient was seen on 10/28/20. NOTE SUBJECTIVE: -No acute events -Nursing switched woundvac to inhouse as it was leaking and will be evaluated by Dr. Joiner likely on 10/31/2020 OBJECTIVE: VITALS: see below GENERAL APPEARANCE: Laying in bed, awake, alert, and oriented. Comfortable, in no acute distress. SKIN: Warm and moist. Sacral wound with wound vac in place LUNGS: Clear to auscultation bilaterally. No wheezing appreciated. HEART: No chest wall abnormalities. Regular rate and rhythm with no murmurs appreciated. ABDOMEN: Normoactive bowel sounds. Abdomen is soft, non-tender, non-distended. EXTREMITIES: 2+ puffy pitting edema to knees, WWP PSYCH: AOx3 LABORATORY DATA: Reviewed IMAGING: None MICROBIOLOGY: Please see below. ASSESSMENT: 75-year-old male who lives at home alone, wheelchair-bound, with a very complex medical history, who presents due to due to inability to care for himself at home less than 24 hours after being discharged home from [facility] after a prolonged hospital stay who is now being admitted for weakness and inability to care for s elf for safe discharge planning. PLAN: Inability to care for self at home: -Continues to refuse placement, reports that he would prefer to be in rehab for 2m and then after regaining his strength after resolution of sacral wound, he would like to be discharged home. -Will consult PFS Neuropathic Charcot foot/ MRSA of right foot/ Bilateral heel ulcers -s/p debridement -Managed by Dr Olivarez, consult him on Thursday for continued management, was to see him in the outpatient setting Chronic Leg weakness due to chronic neuropathy / WC bound s/p surgery for lumber spinal tumor and multiple follow up surgeries from 1979 to 1995/ Meningocele/ pseudomeningocele/ arachnoiditis Cyst drainage from the lower back in 2014 persistent cystic swelling at the back surgery site for years. Flaccid Neurogenic bladder from spinal cord surgery -has chronic ware Chronic back pain post laminectomy syndrome - continue home scripts of gabapentin, lyrica, oxycodone History of seizure disorder -continue home keppra H/o C. Diff colitis, -completed 10 days of fidaxomicin -cont probiotic. Recent diverting colostomy and sacral wound: -status post debridement, diverting colostomy and Wound-Vac managed by Plastic Surgery -dressing change Thursday, Thursday, Thursday. -to consult gen surg and plastics for wound vac review on Thursday. Was to see them in 7d, so no need for STAT consult over the weekend. DVT ppx: heparin Dispo: PFS consult for discussions on safe discharge planning. VS,Fishbone, I+O VS, Fishbone, I+O Vital Signs Date Time Temp Pulse Resp B/P (MAP) Pulse Ox O2 Delivery O2 Flow Rate FiO2 10/28/20 08:35 16 10/28/20 06:00 98.0 81 93/54 (67) 95 Room Air I&O- Last 24 Hours up to 6 AM 10/28/20 05:59 Intake Total 1720 ml Output Total 800 ml Balance 920 ml LEORA WILCOX MD October 28, 2020 09:01
[2020-10-28 14:00] VITALS: BP 116/51
[2020-10-28] MEDS: SENOKOT S TAB PO SCH (20:19)
[2020-10-28] MEDS: ACETAMINOPHEN TAB 650MG DOSE (2X325MG) PO PRN (20:20)
[2020-10-28 22:00] VITALS: BP 121/59
[2020-10-29 06:00] VITALS: BP 119/68
[2020-10-29 07:26] LABS: HEMATOCRIT 34.6 % (42.0-52.0); HEMOGLOBIN 10.8 g/dl (13.5-17.5); MEAN CORPUSCULAR HEMOGLOBIN 29.1 pg (27.0-33.0); MEAN CORPUSCULAR HGB CONC 31.2 g/dl (32.0-36.5); MEAN CORPUSCULAR VOLUME 93.3 fl (80.0-96.0); PLATELET COUNT, AUTOMATED 318 10^3/uL (150-450); RED BLOOD COUNT 3.71 10^6/uL (4.30-6.10); WHITE BLOOD COUNT 5.3 10^3/uL (4.0-10.0)
[2020-10-29 07:45] LABS: BLOOD UREA NITROGEN 14 MG/DL (7-18); CALCIUM LEVEL 8.8 MG/DL (8.8-10.2); CARBON DIOXIDE LEVEL 32 MEQ/L (21-32); CHLORIDE LEVEL 105 MEQ/L (98-107); GLOMERULAR FILTRATION RATE > 60.0 (>42); GLUCOSE, FASTING 75 MG/DL (70-100); POTASSIUM SERUM 3.9 MEQ/L (3.5-5.1); SODIUM LEVEL 141 MEQ/L (136-145)
[2020-10-29] MEDS: HEPARIN SOD (PORCINE) 5000UNITS/ML 1ML VIAL/SYRINGE SC SCH ×2 (08:15→20:28)
[2020-10-29] MEDS: SENOKOT S TAB PO SCH ×2 (08:15→21:00)
[2020-10-29] MEDS: GABAPENTIN 300 MG CAP PO SCH ×2 (08:15→20:28)
[2020-10-29] MEDS: LACTOBACILLUS ACIDOPHILUS CAP (BACID) PO SCH ×2 (08:16→17:07)
[2020-10-29] MEDS: oxyCODONE 10 MG CR TAB PO SCH ×2 (08:16→20:29)
[2020-10-29] MEDS: levETIRAcetam 250MG TABLET (KEPPRA) PO SCH ×2 (08:16→20:28)
[2020-10-29] MEDS: PREGABALIN 75 MG CAP(LYRICA) PO SCH ×2 (08:16→20:28)
--- NOTE | 2020-10-29 09:31 | IPNPDOC ---
Text Note Date of Service The patient was seen on 10/29/20. NOTE SUBJECTIVE: -No acute events OBJECTIVE: VITALS: see below GENERAL APPEARANCE: Laying in bed, awake, alert, and oriented. Comfortable, in no acute distress. SKIN: Warm and moist. Sacral wound with wound vac in place LUNGS: Clear to auscultation bilaterally. No wheezing appreciated. HEART: No chest wall abnormalities. Regular rate and rhythm with no murmurs appreciated. ABDOMEN: Normoactive bowel sounds. Abdomen is soft, non-tender, non-distended. EXTREMITIES: 2+ puffy pitting edema to knees, WWP PSYCH: AOx3 LABORATORY DATA: Reviewed WBC 5.3 Hgb 10.8 platelets 318 na 141 K 3.9 Cr 0.3 IMAGING: None MICROBIOLOGY: Please see below. ASSESSMENT: 75-year-old male who lives at home alone, wheelchair-bound, with a very complex medical history, who presents due to due to inability to care for himself at home less than 24 hours after being discharged home from [facility] after a prolonged hospital stay who is now being admitted for weakness and inability to care for self for safe discharge planning. PLAN: Inability to care for self at home: -Continues to refuse placement, reports that he would prefer to be in rehab for 2m and then after regaining his strength after resolution of sacral wound, he would like to be discharged home. -Consult PFS Neuropathic Charcot foot/ MRSA of right foot/ Bilateral heel ulcers -s/p debridement -Managed by Dr Olivarez, consult him on Thursday AM for continued management, was to see him in the outpatient setting Chronic Leg weakness due to chronic neuropathy / WC bound s/p surgery for lumber spinal tumor and multiple follow up surgeries from 1979 to 1995/ Meningocele/ pseudomeningocele/ arachnoiditis Cyst drainage from the lower back in 2014 persistent cystic swelling at the back surgery site for years. Flaccid Neurogenic bladder from spinal cord surgery -has chronic ware Chronic back pain post laminectomy syndrome - continue home scripts of gabapentin, lyrica, oxycodone History of seizure disorder -continue home keppra H/o C. Diff colitis, -completed 10 days of fidaxomicin -cont probiotic. Recent diverting colostomy and sacral wound: -status post debridement, diverting colostomy and Wound-Vac managed by Plastic Surgery -dressing change Thursday, Thursday, Thursday. -to consult plastics for wound vac review on Thursday when Dr. Joiner is back. Was to see them in 7d in the outpatient setting. For now, was leaking and nursing replaced it. Anemia: chronic, no evidence of bleeding -monitor daily CBC DVT ppx: heparin Dispo: PFS consult for discussions on safe discharge planning. VS,Fishbone, I+O VS, Fishbone, I+O Laboratory Tests 10/29/20 06:52 Vital Signs Date Time Temp Pulse Resp B/P (MAP) Pulse Ox O2 Delivery O2 Flow Rate FiO2 10/29/20 08:16 16 10/29/20 06:00 97.5 78 119/68 (85) 96 Room Air I&O- Last 24 Hours up to 6 AM 10/29/20 05:59 Intake Total 730 ml Output Total 300 ml Balance 430 ml LEORA WILCOX MD October 29, 2020 08:20
[2020-10-29 14:00] VITALS: BP 118/59
--- NOTE | 2020-10-29 17:24 | CR ---
CONSULTATION DATE: 10/29/2020 REASON FOR CONSULTATION: Heel ulcerations. HISTORY OF PRESENT ILLNESS: Patient was readmitted due to inability to care for himself at home. I was asked to evaluate his ulcerations to his heels. PAST MEDICAL HISTORY: Significant for: 1. Seizure disorder. 2. Neurogenic bladder. 3. Neuropathy. 4. Paraplegia due to spinal cord injury. 5. History of Charcot foot. 6. Multiple decubitus ulcerations. PAST SURGICAL HISTORY: 1. Lumbar tumor resection. 2. Multiple back surgeries. 3. Inguinal hernia repair. 4. Laminectomy. SOCIAL HISTORY: Former alcohol, former tobacco use. ALLERGIES: LINEZOLID. REVIEW OF SYSTEMS: Negative for nausea, vomiting, fever or chills. PHYSICAL EXAMINATION: VITAL SIGNS: He is afebrile. LOWER EXTREMITY EXAMINATION: Right heel wound is fully closed. Left heel wound is fully granular without any necrotic tissue. ASSESSMENT: Patient with pressure ulceration to left heel. PLAN: Continue strict offloading with pressure relief boots and continue current wound care with Vashe and Hydrofera Blue dressings.
[2020-10-29] MEDS: ACETAMINOPHEN TAB 650MG DOSE (2X325MG) PO PRN (20:30)
[2020-10-29 22:00] VITALS: BP 117/80
[2020-10-30 06:00] VITALS: BP 119/65
[2020-10-30 09:06] LABS: HEMATOCRIT 35.5 % (42.0-52.0); HEMOGLOBIN 11.5 g/dl (13.5-17.5); MEAN CORPUSCULAR HEMOGLOBIN 29.7 pg (27.0-33.0); MEAN CORPUSCULAR HGB CONC 32.4 g/dl (32.0-36.5); MEAN CORPUSCULAR VOLUME 91.7 fl (80.0-96.0); PLATELET COUNT, AUTOMATED 342 10^3/uL (150-450); RED BLOOD COUNT 3.87 10^6/uL (4.30-6.10); WHITE BLOOD COUNT 4.2 10^3/uL (4.0-10.0)
[2020-10-30] MEDS: levETIRAcetam 250MG TABLET (KEPPRA) PO SCH ×2 (09:07→20:28)
[2020-10-30] MEDS: GABAPENTIN 300 MG CAP PO SCH ×2 (09:07→20:28)
[2020-10-30] MEDS: SENOKOT S TAB PO SCH ×2 (09:07→20:28)
[2020-10-30] MEDS: HEPARIN SOD (PORCINE) 5000UNITS/ML 1ML VIAL/SYRINGE SC SCH ×2 (09:07→20:29)
[2020-10-30] MEDS: PREGABALIN 75 MG CAP(LYRICA) PO SCH ×2 (09:08→20:28)
[2020-10-30] MEDS: LACTOBACILLUS ACIDOPHILUS CAP (BACID) PO SCH ×2 (09:08→18:24)
[2020-10-30] MEDS: oxyCODONE 10 MG CR TAB PO SCH ×2 (09:08→20:28)
[2020-10-30 09:36] LABS: BLOOD UREA NITROGEN 13 MG/DL (7-18); CALCIUM LEVEL 8.5 MG/DL (8.8-10.2); CARBON DIOXIDE LEVEL 31 MEQ/L (21-32); CHLORIDE LEVEL 106 MEQ/L (98-107); CREATININE FOR GFR 0.38 MG/DL (0.70-1.30); GLOMERULAR FILTRATION RATE > 60.0 (>42); GLUCOSE, FASTING 80 MG/DL (70-100); POTASSIUM SERUM 4.3 MEQ/L (3.5-5.1); SODIUM LEVEL 141 MEQ/L (136-145)
[2020-10-30 14:00] VITALS: BP 119/74
--- NOTE | 2020-10-30 15:55 | IPNPDOC ---
Date Seen The patient was seen on 10/30/20. Progress Note SUBJECTIVE: No acute events overnight. Dr. Webber consulted, as he was to see patient later this week anyway, f/u recommendations on wound vac. Changed from observation to inpatient status. Denies chest pain, n/v/d, shortness of breath. OBJECTIVE: PE: VITALS: Please see below GENERAL APPEARANCE: Laying in bed, awake, alert, and oriented. Comfortable, in no acute distress. SKIN: Warm and moist. Sacral wound with wound vac in place LUNGS: Clear to auscultation bilaterally. No wheezing appreciated. HEART: No chest wall abnormalities. Regular rate and rhythm with no murmurs appreciated. ABDOMEN: Normoactive bowel sounds. Abdomen is soft, non-tender, non-distended. EXTREMITIES: 2+ puffy pitting edema to knees INTEGUMENTARY: wound vac in place as mentioned above, left foot wound healing well, covered in bandage PSYCH: AOx3, mood and affect appropriate LABORATORY DATA: Please see below IMAGING: None MICROBIOLOGY: Please see below. ASSESSMENT: 75-year-old male who lives at home alone, wheelchair-bound, with a very complex medical history, who presents due to due to inability to care for himself at home less than 24 hours after being discharged home from [facility] after a prolonged hospital stay who is now being admitted for weakness and inability to care for self for safe discharge planning. PLAN: Weakness, debility with inability to care for self at home -Patient failed discharge home due to not being able to care for himself despite some home health aid -Would like to try rehab to get stronger, cannot r/o option for placement at this time. -PFS following closely -C/w PT/OT Neuropathic Charcot foot/ MRSA of right foot/ Bilateral heel ulcers -s/p debridement -Dr. Olivarez consulted and has seen, f/u official consult note -C/w offloading as stated, Emigdio Najera on wound Chronic Leg weakness due to chronic neuropathy / WC bound -s/p surgery for lumber spinal tumor and multiple follow up surgeries from 1979 to 1995/ Meningocele/ pseudomeningocele/ arachnoiditis -Cyst drainage from the lower back in 2014 -Persistent cystic swelling at the back surgery site for years. Flaccid Neurogenic bladder 2/2 to spinal cord surgery -chronic ware Chronic back pain post laminectomy syndrome -C/w gabapentin, lyrica, oxycodone History of seizure disorder -C/w keppra H/o C. Diff colitis, -completed 10 days of fidaxomicin -cont probiotic. Recent diverting colostomy and sacral wound: -status post debridement, diverting colostomy and Wound-Vac managed by Plastic Surgery -dressing change Thursday, Thursday, Thursday. -Dr. Webber consulted instead of Dr. Joiner, as he was to follow up with him as o/p anyway this week. F/u recommendations on instructions wound vac Anemia: chronic, no evidence of bleeding -monitor daily CBC DVT ppx: heparin DISPOSITION: Discharge plan unknown at this time: c/w rehab inpatient vs. skilled facility? Podiatry and Advanced wound care consult in place. VS, I&O, 24H, Fishbone Vital Signs/I&O Vital Signs Date Time Temp Pulse Resp B/P (MAP) Pulse Ox O2 Delivery O2 Flow Rate FiO2 10/30/20 09:08 18 10/30/20 06:00 97.8 80 119/65 (83) 96 Room Air I&O- Last 24 Hours up to 6 AM 10/30/20 06:00 Intake Total 1070 ml Output Total 825 ml Balance 245 ml Laboratory Data 24H LABS Laboratory Tests 2 10/30/20 08:38: Nucleated Red Blood Cells % (auto) 0.0, Erythrocyte Sedimentation Rate 61H, Anion Gap 4L, Glomerular Filtration Rate > 60.0, Calcium Level 8.5L, C-Reactive Protein, Quantitative 6.09H CBC/BMP Laboratory Tests 10/30/20 08:38 Chayo Chen MD Oct 30, 2020 15:55
--- NOTE | 2020-10-30 17:31 | CR ---
CONSULTATION advanced wound care via telemedicine DATE: 10/30/2020 CONSULTATION REQUESTED BY: Dr. Chen REASON FOR CONSULTATION: Stage IV coccyx pressure injury. Patient additionally has a left ischial stage II pressure injury and a left heel pressure injury, which is being managed by podiatry. A 75-year-old male in declining health, hospitalized several months ago for multiple pressure injuries, as described. Patient underwent a proximal loop colostomy to divert the fecal stream and was seen by plastic surgery for wound debridement. At present, a wound vacuum-assisted closure (VAC) is in place. The coccyx wound measures 5.1 cm x 3.7 cm with a wound depth of 1.2 cm. At present there is no exposed bone. There is, however, undermining from the 11 o'clock to the 12 o'clock position of 3.4 cm, from the 4 o'clock to the 7 o'clock position of 0.7 cm, and a tunnel at the 3 o'clock position of 2.3 cm. The ischial wound measures 5.2 cm x 4.3 cm with a wound depth of 0.1 cm. Treatment with wound VAC appears to have improved the general condition of the wound; however, the limiting factor at this time is the undermining. This represents a space between the skin and the underlying tissue. Undermining prevents wound closure in that the skin is not attached to the wound base and therefore no migration of epithelial cells can take place. At this point with wound VAC therapy if undermining still exists the Vac by itself will not remedy the problem. Therefore the treatment is to surgically excise all undermining. This will initially enlarge the size of the wound but would improve the wound VAC ability of drawing the wound edges together. Without this, the wound will stall and not close. Excision of undermining is not a difficult procedure and can be done with local anesthesia. If the patient is eventually discharged, this can be performed at our wound care center. Maximum improvement with wound VACs are usually seen at around 16-20 weeks. Treatment beyond that usually does not change the clinical situation. The left ischial wound should be cleaned with Vashe wound cleanser and covered with a foam dressing. This can be a plain foam or a Hydrofera Blue Ready. Patient has a left heel wound that is being followed closely by Dr. Olivarez, who has debrided the heel and is using Hydrofera Blue foam and a cover foam dressing. I would agree with all of that and also agree with the offloading heel float boot. This should also be utilized for the right heel, as he is at risk for a deep tissue injury or pressure injury of the left heel. A recent arterial ultrasound for the left lower extremity has been performed and shows no occlusive disease. Wound care telemedicine provides a visual assessment of a wound without the benefit of physical examination. It can assist with establishing a diagnosis and an etiology. This allows for an initial treatment plan. As wounds often change, it may be necessary to modify the original care. Our recommendation is periodic wound reassessment to monitor wound treatment. Failure to comply may result in nonhealing of the wound, possible complications, and/or a poor outcome. The recommendations given will service as treatment options. As I will not be following the patient, this care plan will require the attending physician to give and sign the orders. Upon discharge, outpatient followup can be scheduled at our wound care center. Please feel free to contact me and discuss this case further. RUDY
[2020-10-30] MEDS: ACETAMINOPHEN TAB 650MG DOSE (2X325MG) PO PRN (20:29)
[2020-10-30 22:00] VITALS: BP 118/65
[2020-10-31 06:00] VITALS: BP 129/61
[2020-10-31 06:21] LABS: HEMATOCRIT 35.1 % (42.0-52.0); HEMOGLOBIN 11.2 g/dl (13.5-17.5); MEAN CORPUSCULAR HEMOGLOBIN 29.4 pg (27.0-33.0); MEAN CORPUSCULAR HGB CONC 31.9 g/dl (32.0-36.5); MEAN CORPUSCULAR VOLUME 92.1 fl (80.0-96.0); PLATELET COUNT, AUTOMATED 328 10^3/uL (150-450); RED BLOOD COUNT 3.81 10^6/uL (4.30-6.10); WHITE BLOOD COUNT 4.3 10^3/uL (4.0-10.0)
[2020-10-31 06:45] LABS: BLOOD UREA NITROGEN 13 MG/DL (7-18); CALCIUM LEVEL 8.4 MG/DL (8.8-10.2); CARBON DIOXIDE LEVEL 30 MEQ/L (21-32); CHLORIDE LEVEL 107 MEQ/L (98-107); CREATININE FOR GFR 0.28 MG/DL (0.70-1.30); GLOMERULAR FILTRATION RATE > 60.0 (>42); GLUCOSE, FASTING 73 MG/DL (70-100); POTASSIUM SERUM 4.2 MEQ/L (3.5-5.1); SODIUM LEVEL 142 MEQ/L (136-145)
[2020-10-31] MEDS: levETIRAcetam 250MG TABLET (KEPPRA) PO SCH ×2 (07:55→21:09)
[2020-10-31] MEDS: GABAPENTIN 300 MG CAP PO SCH ×2 (07:56→21:10)
[2020-10-31] MEDS: LACTOBACILLUS ACIDOPHILUS CAP (BACID) PO SCH ×2 (07:56→17:42)
[2020-10-31] MEDS: PREGABALIN 75 MG CAP(LYRICA) PO SCH ×2 (07:56→21:09)
[2020-10-31] MEDS: SENOKOT S TAB PO SCH ×2 (07:56→21:00)
[2020-10-31] MEDS: HEPARIN SOD (PORCINE) 5000UNITS/ML 1ML VIAL/SYRINGE SC SCH ×2 (07:57→21:10)
[2020-10-31] MEDS: oxyCODONE 10 MG CR TAB PO SCH ×2 (07:57→21:10)
[2020-10-31 14:00] VITALS: BP 106/66
--- NOTE | 2020-10-31 14:09 | IPNPDOC ---
Date Seen The patient was seen on 10/31/20. Progress Note SUBJECTIVE: No acute events overnight. Discussed case with Dr. Webber, Dr. Smith. Plan is to reconsult Dr. Joiner when she returns to discuss further debridement mentioned in Dr. Webber's note. Denies chest pain, n/v/d, shortness of breath. OBJECTIVE: PE: VITALS: Please see below GENERAL APPEARANCE: Laying in bed, awake, alert, and oriented. Comfortable, in no acute distress. SKIN: Warm and moist. Sacral wound with wound vac in place LUNGS: Clear to auscultation bilaterally. No wheezing appreciated. HEART: No chest wall abnormalities. Regular rate and rhythm with no murmurs appreciated. ABDOMEN: Normoactive bowel sounds. Abdomen is soft, non-tender, non-distended. EXTREMITIES: 2+ puffy pitting edema to knees INTEGUMENTARY: wound vac in place as mentioned above, left foot wound healing well, covered in bandage PSYCH: AOx3, mood and affect appropriate LABORATORY DATA: Please see below IMAGING: None MICROBIOLOGY: Please see below. ASSESSMENT: 75-year-old male who lives at home alone, wheelchair-bound, with a very complex medical history, who presents due to due to inability to care for himself at home less than 24 hours after being discharged home from [facility] after a prolonged hospital stay who is now being admitted for weakness and inability to care for s elf for safe discharge planning. PLAN: Weakness, debility with inability to care for self at home -Patient failed discharge home due to not being able to care for himself despite some home health aid -Would like to try rehab to get stronger, cannot r/o option for placement at this time. -PFS following closely -C/w PT/OT Recent diverting colostomy and sacral wound status post debridement, diverting colostomy and Wound-Vac managed by Plastic Surgery -dressing change Thursday, Thursday, Thursday. -Wound vac restarted, please read Dr. Webber's full consult note and recommendations -Reconsult Dr. Joiner when she returns to discuss further debridement mentioned in wound care's notes -Dr. Webber consulted and can be called about wound care, dressings, wound vac, etc Neuropathic Charcot foot/ MRSA of right foot/ Bilateral heel ulcers -s/p debridement -Dr. Olivarez consulted and has seen, f/u official consult note -C/w offloading as stated, Emigdio Najera blue on wound Chronic Leg weakness due to chronic neuropathy / WC bound -s/p surgery for lumber spinal tumor and multiple follow up surgeries from 1979 to 1995/ Meningocele/ pseudomeningocele/ arachnoiditis -Cyst drainage from the lower back in 2014 -Persistent cystic swelling at the back surgery site for years. Flaccid Neurogenic bladder 2/2 to spinal cord surgery -chronic ware Chronic back pain post laminectomy syndrome -C/w gabapentin, lyrica, oxycodone History of seizure disorder -C/w keppra H/o C. Diff colitis, -completed 10 days of fidaxomicin -cont probiotic. Anemia: chronic, no evidence of bleeding -monitor daily CBC DVT ppx: heparin DISPOSITION: Discharge plan unknown at this time: c/w rehab inpatient vs. skilled facility? Podiatry and Advanced wound care consult in place. Will need Dr. Joiner consulted when she returns. Switched from inpatient to ALC status today. VS, I&O, 24H, [facility] Vital Signs/I&O Vital Signs Date Time Temp Pulse Resp B/P (MAP) Pulse Ox O2 Delivery O2 Flow Rate FiO2 10/31/20 07:57 16 10/31/20 06:00 97.2 71 129/61 (83) 94 Room Air I&O- Last 24 Hours up to 6 AM 10/31/20 06:00 Intake Total 1170 ml Output Total 900 ml Balance 270 ml Laboratory Data 24H LABS Laboratory Tests 2 10/31/20 06:06: Nucleated Red Blood Cells % (auto) 0.0, Anion Gap 5L, Glomerular Filtration Rate > 60.0, Calcium Level 8.4L CBC/BMP Laboratory Tests 10/31/20 06:06 Chayo Chen MD Oct 31, 2020 14:09
[2020-10-31 22:00] VITALS: BP 110/64
[2020-11-01 06:00] VITALS: BP 109/64
[2020-11-01 06:01] LABS: HEMATOCRIT 35.4 % (42.0-52.0); HEMOGLOBIN 11.2 g/dl (13.5-17.5); MEAN CORPUSCULAR HEMOGLOBIN 28.9 pg (27.0-33.0); MEAN CORPUSCULAR HGB CONC 31.6 g/dl (32.0-36.5); MEAN CORPUSCULAR VOLUME 91.5 fl (80.0-96.0); PLATELET COUNT, AUTOMATED 350 10^3/uL (150-450); RED BLOOD COUNT 3.87 10^6/uL (4.30-6.10); WHITE BLOOD COUNT 5.2 10^3/uL (4.0-10.0)
[2020-11-01] MEDS: SENOKOT S TAB PO SCH ×2 (09:43→21:20)
[2020-11-01] MEDS: LACTOBACILLUS ACIDOPHILUS CAP (BACID) PO SCH ×2 (09:43→18:02)
[2020-11-01] MEDS: oxyCODONE 10 MG CR TAB PO SCH ×2 (09:44→21:21)
[2020-11-01] MEDS: HEPARIN SOD (PORCINE) 5000UNITS/ML 1ML VIAL/SYRINGE SC SCH ×2 (09:45→21:21)
[2020-11-01] MEDS: GABAPENTIN 300 MG CAP PO SCH ×2 (09:45→21:20)
[2020-11-01] MEDS: levETIRAcetam 250MG TABLET (KEPPRA) PO SCH ×2 (09:45→21:20)
[2020-11-01] MEDS: PREGABALIN 75 MG CAP(LYRICA) PO SCH ×2 (09:45→21:20)
[2020-11-01 14:00] VITALS: BP 109/61
[2020-11-01 21:50] VITALS: BP 108/61
[2020-11-02 05:39] VITALS: BP 108/62
[2020-11-02] MEDS: SENOKOT S TAB PO SCH ×2 (08:36→20:05)
[2020-11-02] MEDS: LACTOBACILLUS ACIDOPHILUS CAP (BACID) PO SCH ×2 (08:36→17:52)
[2020-11-02] MEDS: GABAPENTIN 300 MG CAP PO SCH ×2 (08:36→20:05)
[2020-11-02] MEDS: HEPARIN SOD (PORCINE) 5000UNITS/ML 1ML VIAL/SYRINGE SC SCH ×2 (08:36→20:06)
[2020-11-02] MEDS: PREGABALIN 75 MG CAP(LYRICA) PO SCH ×2 (08:36→20:05)
[2020-11-02] MEDS: levETIRAcetam 250MG TABLET (KEPPRA) PO SCH ×2 (08:36→20:05)
[2020-11-02] MEDS: oxyCODONE 10 MG CR TAB PO SCH ×2 (08:37→20:06)
[2020-11-02 14:00] VITALS: BP 107/61
[2020-11-02] MEDS: ACETAMINOPHEN TAB 650MG DOSE (2X325MG) PO PRN (20:06)
[2020-11-03 06:13] VITALS: BP 107/64
[2020-11-03] MEDS: levETIRAcetam 250MG TABLET (KEPPRA) PO SCH ×2 (08:46→20:16)
[2020-11-03] MEDS: GABAPENTIN 300 MG CAP PO SCH ×2 (08:46→20:16)
[2020-11-03] MEDS: SENOKOT S TAB PO SCH ×2 (08:46→20:16)
[2020-11-03] MEDS: LACTOBACILLUS ACIDOPHILUS CAP (BACID) PO SCH ×2 (08:47→17:43)
[2020-11-03] MEDS: HEPARIN SOD (PORCINE) 5000UNITS/ML 1ML VIAL/SYRINGE SC SCH ×2 (08:47→20:17)
[2020-11-03] MEDS: PREGABALIN 75 MG CAP(LYRICA) PO SCH ×2 (08:50→20:16)
[2020-11-03] MEDS: oxyCODONE 10 MG CR TAB PO SCH ×2 (08:51→20:17)
[2020-11-03] MEDS: ACETAMINOPHEN TAB 650MG DOSE (2X325MG) PO PRN (20:17)
[2020-11-04 06:00] VITALS: BP 108/65
[2020-11-04] MEDS: levETIRAcetam 250MG TABLET (KEPPRA) PO SCH ×2 (08:10→21:34)
[2020-11-04] MEDS: SENOKOT S TAB PO SCH ×2 (08:10→21:34)
[2020-11-04] MEDS: LACTOBACILLUS ACIDOPHILUS CAP (BACID) PO SCH ×2 (08:10→17:29)
[2020-11-04] MEDS: oxyCODONE 10 MG CR TAB PO SCH ×2 (08:10→21:35)
[2020-11-04] MEDS: PREGABALIN 75 MG CAP(LYRICA) PO SCH ×2 (08:10→21:34)
[2020-11-04] MEDS: HEPARIN SOD (PORCINE) 5000UNITS/ML 1ML VIAL/SYRINGE SC SCH ×2 (08:11→21:35)
[2020-11-04] MEDS: GABAPENTIN 300 MG CAP PO SCH ×2 (08:11→21:34)
[2020-11-04] MEDS ORDERED: MOM 30ML SUSPENSION UDC PO PRN (09:55)
[2020-11-04] MEDS: ACETAMINOPHEN TAB 650MG DOSE (2X325MG) PO PRN (21:35)
[2020-11-05 06:00] VITALS: BP 107/65
[2020-11-05] MEDS: SENOKOT S TAB PO SCH ×2 (07:50→20:51)
[2020-11-05] MEDS: oxyCODONE 10 MG CR TAB PO SCH ×2 (07:50→20:52)
[2020-11-05] MEDS: LACTOBACILLUS ACIDOPHILUS CAP (BACID) PO SCH ×2 (07:50→17:04)
[2020-11-05] MEDS: HEPARIN SOD (PORCINE) 5000UNITS/ML 1ML VIAL/SYRINGE SC SCH ×2 (07:51→20:53)
[2020-11-05] MEDS: GABAPENTIN 300 MG CAP PO SCH ×2 (07:51→20:52)
[2020-11-05] MEDS: levETIRAcetam 250MG TABLET (KEPPRA) PO SCH ×2 (07:51→20:52)
[2020-11-05] MEDS: PREGABALIN 75 MG CAP(LYRICA) PO SCH ×2 (07:51→20:52)
[2020-11-06 06:40] VITALS: BP 104/65
[2020-11-06] MEDS: PREGABALIN 75 MG CAP(LYRICA) PO SCH ×2 (08:24→20:39)
[2020-11-06] MEDS: GABAPENTIN 300 MG CAP PO SCH ×2 (08:24→20:40)
[2020-11-06] MEDS: LACTOBACILLUS ACIDOPHILUS CAP (BACID) PO SCH ×2 (08:24→17:55)
[2020-11-06] MEDS: levETIRAcetam 250MG TABLET (KEPPRA) PO SCH ×2 (08:24→20:39)
[2020-11-06] MEDS: HEPARIN SOD (PORCINE) 5000UNITS/ML 1ML VIAL/SYRINGE SC SCH ×2 (08:24→20:41)
[2020-11-06] MEDS: SENOKOT S TAB PO SCH ×2 (08:25→20:40)
[2020-11-06] MEDS: oxyCODONE 10 MG CR TAB PO SCH ×2 (08:25→20:40)
[2020-11-07 06:00] VITALS: BP 108/64
[2020-11-07 07:17] LABS: ALBUMIN 2.5 GM/DL (3.2-5.2); ALT/SGPT 12 U/L (12-78); BILIRUBIN,TOTAL 0.3 MG/DL (0.2-1.0); BLOOD UREA NITROGEN 15 MG/DL (7-18); CALCIUM LEVEL 8.6 MG/DL (8.8-10.2); CARBON DIOXIDE LEVEL 31 MEQ/L (21-32); CHLORIDE LEVEL 106 MEQ/L (98-107); CREATININE FOR GFR 0.32 MG/DL (0.70-1.30); GLOMERULAR FILTRATION RATE > 60.0 (>42); GLUCOSE, FASTING 80 MG/DL (70-100); SODIUM LEVEL 141 MEQ/L (136-145)
[2020-11-07] MEDS: LACTOBACILLUS ACIDOPHILUS CAP (BACID) PO SCH ×2 (08:12→17:08)
[2020-11-07] MEDS: PREGABALIN 75 MG CAP(LYRICA) PO SCH ×2 (08:12→20:35)
[2020-11-07] MEDS: GABAPENTIN 300 MG CAP PO SCH ×2 (08:12→20:35)
[2020-11-07] MEDS: levETIRAcetam 250MG TABLET (KEPPRA) PO SCH ×2 (08:12→20:35)
[2020-11-07] MEDS: oxyCODONE 10 MG CR TAB PO SCH ×2 (08:13→20:36)
[2020-11-07] MEDS: SENOKOT S TAB PO SCH ×2 (08:14→20:36)
[2020-11-07] MEDS: HEPARIN SOD (PORCINE) 5000UNITS/ML 1ML VIAL/SYRINGE SC SCH ×2 (08:14→20:36)
[2020-11-07 21:30] LABS: APPEARANCE, URINE CLOUDY (CLEAR); BACTERIA, URINE AUTO 2+ (NEGATIVE); BILIRUBIN, URINE AUTO NEGATIVE (NEGATIVE); BLOOD, URINE BLOOD 1+ (NEGATIVE); COLOR, URINE YELLOW (YELLOW); GLUCOSE, URINE (UA) AUTO NEGATIVE (NEGATIVE); KETONE, URINE AUTO NEGATIVE (NEGATIVE); LEUKOCYTE ESTERASE, URINE AUTO 3+ (NEGATIVE); MUCUS, URINE SMALL (NEGATIVE); NITRITE, URINE AUTO POSITIVE (NEGATIVE); PROTEIN, URINE AUTO NEGATIVE (NEGATIVE); RBC, URINE AUTO 14 /HPF (0-3); SQUAMOUS EPITHELIAL CELL UR AU 0 /HPF (0-6); UROBILINOGEN, URINE AUTO 0.2 mg/dL (0.0-2.0); WBC, URINE AUTO 164 /HPF (0-3)
[2020-11-08 06:00] VITALS: BP 109/64
[2020-11-08] MEDS: SENOKOT S TAB PO SCH ×2 (09:53→22:09)
[2020-11-08] MEDS: GABAPENTIN 300 MG CAP PO SCH ×2 (09:53→22:09)
[2020-11-08] MEDS: LACTOBACILLUS ACIDOPHILUS CAP (BACID) PO SCH ×2 (09:53→17:27)
[2020-11-08] MEDS: PREGABALIN 75 MG CAP(LYRICA) PO SCH ×2 (09:54→22:09)
[2020-11-08] MEDS: levETIRAcetam 250MG TABLET (KEPPRA) PO SCH ×2 (09:54→22:09)
[2020-11-08] MEDS: oxyCODONE 10 MG CR TAB PO SCH ×2 (09:55→22:09)
[2020-11-08] MEDS: HEPARIN SOD (PORCINE) 5000UNITS/ML 1ML VIAL/SYRINGE SC SCH ×2 (09:56→22:09)
[2020-11-09 06:00] VITALS: BP 107/62
[2020-11-09] MEDS: HEPARIN SOD (PORCINE) 5000UNITS/ML 1ML VIAL/SYRINGE SC SCH ×2 (08:41→20:28)
[2020-11-09] MEDS: levETIRAcetam 250MG TABLET (KEPPRA) PO SCH ×2 (08:41→20:27)
[2020-11-09] MEDS: PREGABALIN 75 MG CAP(LYRICA) PO SCH ×2 (08:41→20:27)
[2020-11-09] MEDS: GABAPENTIN 300 MG CAP PO SCH ×2 (08:41→20:28)
[2020-11-09] MEDS: SENOKOT S TAB PO SCH ×2 (08:41→20:28)
[2020-11-09] MEDS: LACTOBACILLUS ACIDOPHILUS CAP (BACID) PO SCH ×2 (08:41→18:22)
[2020-11-09] MEDS: oxyCODONE 10 MG CR TAB PO SCH ×2 (08:42→20:28)
--- NOTE | 2020-11-09 12:53 | IPNPDOC ---
Text Note Date of Service The patient was seen on 11/09/20. NOTE Subjective: No any acute events overnight. Patient denies fever, chills, nausea, chest pain, palpitations, diarrhea VITALS: Please see below GENERAL APPEARANCE: NAD SKIN: Warm and moist. Sacral wound with wound vac in place LUNGS: Clear to auscultation bilaterally. No wheezing appreciated. HEART: No chest wall abnormalities. Regular rate and rhythm with no murmurs appreciated. ABDOMEN: Normoactive bowel sounds. Abdomen is soft, non-tender, non-distended. EXTREMITIES: 1+ puffy pitting edema to knees INTEGUMENTARY: wound vac in place PSYCH: AOx3, mood and affect appropriate ASSESSMENT: 75-year-old male who lives at home alone, wheelchair-bound, with a very complex medical history, who presents due to due to inability to care for himself at home less than 24 hours after being discharged home from [facility] after a prolonged hospital stay who is now being admitted for weakness and inability to care for self for safe discharge planning. PLAN: Weakness, debility with inability to care for self at home -C/w PT/OT Recent diverting colostomy and sacral wound status post debridement, diverting colostomy and Wound-Vac managed by Plastic Surgery -dressing change Thursday, Thursday, Thursday. -Wound vac restarted, follow-up with learning development specialist in the outpatient settings Neuropathic Charcot foot/ MRSA of right foot/ Bilateral heel ulcers -C/w offloading as stated, Vashe, Hydrofera blue on wound Chronic Leg weakness due to chronic neuropathy / WC bound -s/p surgery for lumber spinal tumor and multiple follow up surgeries from 1979 to 1995/ Meningocele/ pseudomeningocele/ arachnoiditis -Cyst drainage from the lower back in 2014 -Persistent cystic swelling at the back surgery site for years. Flaccid Neurogenic bladder 2/2 to spinal cord surgery -chronic ware Chronic back pain post laminectomy syndrome -C/w gabapentin, lyrica, oxycodone History of seizure disorder -C/w keppra H/o C. Diff colitis, -completed 10 days of fidaxomicin -cont probiotic. Normocytic anemia Will check iron panel, B12, folate, stool for occult blood VS,Fishbone, I+O VS, Fishbone, I+O Vital Signs Date Time Temp Pulse Resp B/P (MAP) Pulse Ox O2 Delivery O2 Flow Rate FiO2 11/09/20 08:42 18 Room Air 11/09/20 06:00 97.7 73 107/62 (13) 95 I&O- Last 24 Hours up to 6 AM 11/09/20 06:00 Intake Total 1580 ml Output Total 1100 ml Balance 480 ml VISHAL GRIGSBY Nov 09, 2020 12:53
[2020-11-10 06:00] VITALS: BP 109/62
[2020-11-10 07:24] LABS: BASO # 0.1 10^3/uL (0.0-0.2); BASO % 0.9 % (0.0-1.0); EOS # 0.3 10^3/uL (0.0-0.5); EOS % 4.7 % (0.0-3.0); HEMATOCRIT 37.6 % (42.0-52.0); HEMOGLOBIN 11.9 g/dl (13.5-17.5); LYMPH # 1.4 10^3/uL (1.5-5.0); LYMPH % 24.3 % (24.0-44.0); MEAN CORPUSCULAR HEMOGLOBIN 29.3 pg (27.0-33.0); MEAN CORPUSCULAR HGB CONC 31.6 g/dl (32.0-36.5); MEAN CORPUSCULAR VOLUME 92.6 fl (80.0-96.0); MONO # 0.5 10^3/uL (0.0-0.8); MONO % 8.5 % (2.0-8.0); NEUTROPHILS # 3.5 10^3/uL (1.5-8.5); NEUTROPHILS % 61.3 % (36.0-66.0); PLATELET COUNT, AUTOMATED 312 10^3/uL (150-450); RED BLOOD COUNT 4.06 10^6/uL (4.30-6.10); WHITE BLOOD COUNT 5.8 10^3/uL (4.0-10.0)
[2020-11-10 07:50] LABS: BLOOD UREA NITROGEN 17 MG/DL (7-18); CALCIUM LEVEL 8.5 MG/DL (8.8-10.2); CARBON DIOXIDE LEVEL 32 MEQ/L (21-32); CHLORIDE LEVEL 106 MEQ/L (98-107); CREATININE FOR GFR 0.32 MG/DL (0.70-1.30); GLOMERULAR FILTRATION RATE > 60.0 (>42); GLUCOSE, FASTING 77 MG/DL (70-100); MAGNESIUM LEVEL 1.9 MG/DL (1.8-2.4); SODIUM LEVEL 141 MEQ/L (136-145)
[2020-11-10] MEDS: PREGABALIN 75 MG CAP(LYRICA) PO SCH ×2 (09:26→21:22)
[2020-11-10] MEDS: GABAPENTIN 300 MG CAP PO SCH ×2 (09:26→21:22)
[2020-11-10] MEDS: SENOKOT S TAB PO SCH ×2 (09:26→21:22)
[2020-11-10] MEDS: levETIRAcetam 250MG TABLET (KEPPRA) PO SCH ×2 (09:27→21:22)
[2020-11-10] MEDS: oxyCODONE 10 MG CR TAB PO SCH ×2 (09:27→21:23)
[2020-11-10] MEDS: HEPARIN SOD (PORCINE) 5000UNITS/ML 1ML VIAL/SYRINGE SC SCH ×2 (09:27→21:22)
[2020-11-10] MEDS: LACTOBACILLUS ACIDOPHILUS CAP (BACID) PO SCH ×2 (09:27→17:59)
[2020-11-10 11:15] LABS: IRON (FE) 31 UG/DL (65-175); PERCENT SATURATION 16.8 % (19.7-50.0); TOTAL IRON BINDING CAPACITY 185 UG/DL (250-450)
[2020-11-11 06:00] VITALS: BP 109/56
[2020-11-11] MEDS: SENOKOT S TAB PO SCH ×2 (09:31→21:37)
[2020-11-11] MEDS: LACTOBACILLUS ACIDOPHILUS CAP (BACID) PO SCH ×2 (09:32→18:02)
[2020-11-11] MEDS: levETIRAcetam 250MG TABLET (KEPPRA) PO SCH ×2 (09:32→21:37)
[2020-11-11] MEDS: GABAPENTIN 300 MG CAP PO SCH ×2 (09:32→21:37)
[2020-11-11] MEDS: oxyCODONE 10 MG CR TAB PO SCH ×2 (09:34→21:38)
[2020-11-11] MEDS: PREGABALIN 75 MG CAP(LYRICA) PO SCH ×2 (09:34→21:37)
[2020-11-11] MEDS: HEPARIN SOD (PORCINE) 5000UNITS/ML 1ML VIAL/SYRINGE SC SCH ×2 (09:35→21:37)
[2020-11-12 06:03] VITALS: BP 114/59
[2020-11-12] MEDS: LACTOBACILLUS ACIDOPHILUS CAP (BACID) PO SCH ×2 (08:04→17:47)
[2020-11-12] MEDS: levETIRAcetam 250MG TABLET (KEPPRA) PO SCH ×2 (08:04→20:35)
[2020-11-12] MEDS: SENOKOT S TAB PO SCH ×2 (08:05→20:36)
[2020-11-12] MEDS: oxyCODONE 10 MG CR TAB PO SCH ×2 (08:06→20:37)
[2020-11-12] MEDS: PREGABALIN 75 MG CAP(LYRICA) PO SCH ×2 (08:06→20:36)
[2020-11-12] MEDS: GABAPENTIN 300 MG CAP PO SCH ×2 (08:06→20:36)
[2020-11-12] MEDS: HEPARIN SOD (PORCINE) 5000UNITS/ML 1ML VIAL/SYRINGE SC SCH ×2 (08:06→20:36)
[2020-11-12 11:11] LABS: FOLATE 7.8 NG/ML (>5.4); VITAMIN B12 LEVEL 397 PG/ML (247-911)
[2020-11-13 06:00] VITALS: BP 108/62
[2020-11-13] MEDS: LACTOBACILLUS ACIDOPHILUS CAP (BACID) PO SCH ×2 (08:00→18:45)
[2020-11-13] MEDS: PREGABALIN 75 MG CAP(LYRICA) PO SCH ×2 (10:30→20:45)
[2020-11-13] MEDS: levETIRAcetam 250MG TABLET (KEPPRA) PO SCH ×2 (10:30→20:46)
[2020-11-13] MEDS: SENOKOT S TAB PO SCH ×2 (10:30→20:46)
[2020-11-13] MEDS: GABAPENTIN 300 MG CAP PO SCH ×2 (10:31→20:45)
[2020-11-13] MEDS: oxyCODONE 10 MG CR TAB PO SCH ×2 (10:31→20:46)
[2020-11-13] MEDS: HEPARIN SOD (PORCINE) 5000UNITS/ML 1ML VIAL/SYRINGE SC SCH ×2 (10:32→20:47)
[2020-11-14 06:00] VITALS: BP 106/61
[2020-11-14] MEDS: LACTOBACILLUS ACIDOPHILUS CAP (BACID) PO SCH ×2 (10:09→17:56)
[2020-11-14] MEDS: levETIRAcetam 250MG TABLET (KEPPRA) PO SCH ×2 (10:09→20:31)
[2020-11-14] MEDS: PREGABALIN 75 MG CAP(LYRICA) PO SCH ×2 (10:09→20:30)
[2020-11-14] MEDS: oxyCODONE 10 MG CR TAB PO SCH ×2 (10:10→20:31)
[2020-11-14] MEDS: HEPARIN SOD (PORCINE) 5000UNITS/ML 1ML VIAL/SYRINGE SC SCH ×2 (10:10→20:33)
[2020-11-14] MEDS: SENOKOT S TAB PO SCH ×2 (10:10→20:32)
[2020-11-14] MEDS: GABAPENTIN 300 MG CAP PO SCH ×2 (10:10→20:32)
[2020-11-15 06:00] VITALS: BP 110/61
[2020-11-15] MEDS: SENOKOT S TAB PO SCH (09:46)
[2020-11-15] MEDS: levETIRAcetam 250MG TABLET (KEPPRA) PO SCH (09:46)
[2020-11-15] MEDS: GABAPENTIN 300 MG CAP PO SCH (09:46)
[2020-11-15] MEDS: oxyCODONE 10 MG CR TAB PO SCH (09:47)
[2020-11-15] MEDS: HEPARIN SOD (PORCINE) 5000UNITS/ML 1ML VIAL/SYRINGE SC SCH (09:47)
[2020-11-15] MEDS: PREGABALIN 75 MG CAP(LYRICA) PO SCH (09:47)
[2020-11-15] MEDS: LACTOBACILLUS ACIDOPHILUS CAP (BACID) PO SCH (09:48)
--- NOTE | 2020-11-15 11:39 | DS.PDOC ---
Discharge Summary General Date of Admission Oct 30, 2020 at 08:25 Date of Discharge 11/15/20 Discharge Summary PROCEDURES PERFORMED DURING STAY: [None]. ADMITTING/DISCHARGE DIAGNOSES: Weakness, debility with inability to care for self at home Recent diverting colostomy and sacral wound status post debridement, diverting colostomy and Wound-Vac managed by Plastic Surgery Neuropathic Charcot foot/ MRSA of right foot/ Bilateral heel ulcers Chronic Leg weakness due to chronic neuropathy / WC bound Flaccid Neurogenic bladder 2/2 to spinal cord surgery COMPLICATIONS/CHIEF COMPLAINT: Weakness. HISTORY OF PRESENT ILLNESS/HOSPITAL COURSE: Form admitting physician's history and physical: 75-year-old male who lives at home alone, wheelchair-bound at baseline who presents to due to inability to care for himself at home less than 24 hours after being discharged home from [facility] after a prolonged hospital stay for which he had originally presented for acute on chronic weakness with a fall on 08/14/2020 2/2 extensive conditions including a spinal tumor resection 1980 with multiple back surgeries, thoracic laminectomy and lumbar fusion, neuropathic, Charcot joint, with bilateral chronic heel ulcers and sacral coccygeal ulcers. During that hospitalization he was found to have an infected stage IV decubitus with extended spectrum beta-lactamase, Escherichia (E) coli, Enterococcus faecalis with bilateral heel decubitus ulcers. He had a left heel unstageable ulcer measuring 6 x 8 x 3.8 cm, full thickness with eschar. Left medial malleolus had another wound measuring 2.1 x 1.2 cm with left Achilles tendon, has a wound measuring 3.4 x 1.6 right heel with a small ulcer measuring 1.5 x 1 cm, debrided by Dr. Olivarez. Patient had a decubitus ulcer on the coccyx measuring 3.2 cm with tunneling around 11 o'clock with a meningocele bulge at T11-T12 with postoperative changes from the prior history of multiple surgeries in the past. His course was c/b Clostridium (C) difficile colitis i/s/o broad spectrum antibiotics that was treated to completion. He underwent diverting colostomy due to continued fecal contamination of the sacral wound. Wound VAC was placed by Dr. Maude Joiner and he was found on repeat CT to have free air and underwent laparoscopy by Dr. Smith, but with no evidence of perforation. He also had a urinary tract infection with Pseudomonas and Klebsiella due to chronic indwelling catheter that was also treated and ESBL and Bacteroides fragilis in his wound cultures that were also treated. Wound VAC remains in place with dressing changes Thursday, Thursday and Thursday. He completed a full course of antibiotics and oral Levaquin on September 24, 2020 with no recurrence of fever, white count for the catheter-associated urinary tract infection with Klebsiella and pseudomonas. He was kept on probiotics given his recent Clostridium (C) difficile colitis. With regard to foot ulcers, Dr. Olivarez continued to do bedside excisional wound dbridements of bilateral ulcers. The last one was done on 10/05/2020 and patient was continued on Hydrofera Blue dr mary and offloading. The patient ultimately refused care home placement and was kept on alternate level of care (ALC)/fci facility (SNF) status from 09/05/2020 to day of discharge on 10/25/2020. He now returned per the recommendation of VNA nursing on their first visit less than 24h after home discharge to return to the ED for admission for weakness and inability to care for himself as he was immobile at home and unable to care for himself. ROS was negative for fever, chills, chest pain, nausea, emesis. During his hospitalization arrangements were made for patient to go get rehabilitation at [facility] patient was discharged on 11/15/2020. DISCHARGE MEDICATIONS: Please see below. ALLERGIES: Please see below. PHYSICAL EXAMINATION ON DISCHARGE: VITAL SIGNS: Please see below. General: NAD, comfortable Respiratory: lungs CTAB, no wheeze, no rales, no crackles CVS: RRR, normal S1, S2, no murmurs Abdo: soft, no masses, no hepatosplenomegaly, BS+, colostomy bag in place with stool. Back: Sacral ulcer status post debridement with wound VAC in place Neuro: Paraplegia of lower extremities. Good upper extremity strength bila terally. Psych: calm, cooperative, AAO x 3 LABORATORY DATA: Please see below. IMAGING: See chart PROGNOSIS: fair ACTIVITY: [As tolerated]. DISPOSITION: Rehab at [facility] DISCHARGE INSTRUCTIONS: Rehab at [facility] ITEMS TO FOLLOWUP ON ON OUTPATIENT: Follow up with Plastic surgery, general surgery, podiatry, primary care physician DISCHARGE CONDITION: [Stable]. TIME SPENT ON DISCHARGE: 35 minutes. Vital Signs/I&Os Vital Signs Date Time Temp Pulse Resp B/P (MAP) Pulse Ox O2 Delivery O2 Flow Rate FiO2 11/15/20 09:47 16 Room Air 11/15/20 06:00 97.5 70 110/61 (77) 95 I&O- Last 24 Hours up to 6 AM 11/15/20 06:00 Intake Total 1050 ml Output Total 0 ml Balance 1050 ml Laboratory Data Labs 24H Laboratory Tests 2 11/14/20 22:23: Coronavirus (COVID-19)(PCR) NEGATIVE Discharge Medications Scheduled Gabapentin (Gabapentin) 600 Mg Tablet, 600 MG PO BID, (Reported) L.acidoph/L.bulg/B.bif/S.therm (Annetta-Bid Caplet) 1 Each Tablet, 1 TAB PO BIDWM, (Reported) Levetiracetam (Levetiracetam) 750 Mg Tablet, 750 MG PO DAILY, (Reported) Levetiracetam (Keppra) 1,000 Mg Tablet, 1,000 MG PO QHS, (Reported) Oxycodone HCl (Oxycodone HCl ER) 10 Mg Tab.er.12h, 10 MG PO BID, (Reported) HAS NOT GOTTEN NEW MEDICATION Oxycodone HCl (Oxycodone HCl ER) 30 Mg Tab.er.12h, 30 MG PO BID, (Reported) WAS DISCONTINUED UPON DISCHARGE OF LAST ADMISSION. Pregabalin (Pregabalin) 150 Mg Capsule, 150 MG PO BID, (Reported) Allergies Coded Allergies: linezolid (Verified Allergy, Unknown, 04/23/19) DANIEL ANN MD Nov 15, 2020 11:39
== END 2020-11-15 15:55 | DRG 593 ==
LOC: EDBD 13:18 → M ED 13:18 → M ED INP 13:19 → ENRESERV 19:25 → M MS5PR 20:03 → OBSVTOIN 10-30 08:25
PROVIDERS: ADMIT Internal Medicine; ATTEND Family Medicine
DX: L89.154 Pressure ulcer of sacral region, stage 4 (principal); G82.20 Paraplegia, unspecified; A52.16 Charcot's arthropathy (tabetic); L89.624 Pressure ulcer of left heel, stage 4; R29.6 Repeated falls; R53.1 Weakness; N31.9 Neuromuscular dysfunction of bladder, unspecified; L89.322 Pressure ulcer of left buttock, stage 2; Z93.3 Colostomy status; Z79.899 Other long term (current) drug therapy; Z88.8 Allergy status to other drugs, medicaments and biological substances; G40.909 Epilepsy, unspecified, not intractable, without status epilepticus; M96.1 Postlaminectomy syndrome, not elsewhere classified; D64.9 Anemia, unspecified

== ENCOUNTER 2021-01-06 12:17 | Inpatient (IN) | payer MEDICARE, OTHER ==
[~2021-01-06] VITALS: Ht 190.5 cm; Wt 97.9 kg
[~2021-01-06 12:17] MED LIST changes: +OXYC-424 PO; +OXYC30TA72
[2021-01-06 15:45] LABS: BASO % 0.2 % (0.0-1.0); EOS % 0.2 % (0.0-3.0); HEMATOCRIT 51.2 % (42.0-52.0); HEMOGLOBIN 16.8 g/dl (13.5-17.5); LYMPH # 1.7 10^3/uL (1.5-5.0); LYMPH % 8.9 % (24.0-44.0); MEAN CORPUSCULAR HEMOGLOBIN 29.1 pg (27.0-33.0); MEAN CORPUSCULAR HGB CONC 32.8 g/dl (32.0-36.5); MEAN CORPUSCULAR VOLUME 88.6 fl (80.0-96.0); MONO # 1.5 10^3/uL (0.0-0.8); MONO % 7.9 % (2.0-8.0); NEUTROPHILS # 15.1 10^3/uL (1.5-8.5); NEUTROPHILS % 81.8 % (36.0-66.0); PLATELET COUNT, AUTOMATED 364 10^3/uL (150-450); RED BLOOD COUNT 5.78 10^6/uL (4.30-6.10)
[2021-01-06 15:47] LABS: WHITE BLOOD COUNT 18.5 10^3/uL (4.0-10.0)
[2021-01-06 16:12] LABS: ALBUMIN 2.7 GM/DL (3.2-5.2); BILIRUBIN,TOTAL 0.8 MG/DL (0.2-1.0); CALCIUM LEVEL 9.1 MG/DL (8.8-10.2); CREATININE FOR GFR 3.5 MG/DL (0.70-1.30); GLOMERULAR FILTRATION RATE 18.2 (>42); MAGNESIUM LEVEL 2.3 MG/DL (1.8-2.4); POTASSIUM SERUM 5.4 MEQ/L (3.5-5.1); TOTAL PROTEIN 7.3 GM/DL (6.4-8.2)
[2021-01-06] MEDS ORDERED: NS 1,000 ML IV ONE (16:35)
--- NOTE | 2021-01-06 17:25 | REP ---
INDICATION: leukocytosis and cough. COMPARISON: Portable chest dated 10/26/2020. TECHNIQUE: Portable AP view of the chest with the patient upright. FINDINGS: The lung gonzalez are clear. Cardiac size is normal. The alicia, mediastinum and skeletal structures are unremarkable. There is no interval change. IMPRESSION: Essentially negative portable chest <Electronically signed by Ezequiel Price > 01/06/21 [id number]
--- NOTE | 2021-01-06 18:52 | REP ---
INDICATION: sepsis. COMPARISON: Abdomen and pelvis CT dated 08/28/2020. TECHNIQUE: Abdomen and pelvis CT without contrast FINDINGS: The visualized lung gonzalez are unremarkable. The hepatic parenchyma is homogeneous. The gallbladder is not identified and may be collapsed or surgically absent. There is a vena cava filter, unchanged. There is a diverting colostomy in the midline of the transverse colon, unchanged. The pancreas and spleen are unremarkable. The adrenals are unremarkable. There is a left renal cortical cyst, unchanged. The right kidney is unremarkable. Thoracic aorta is unremarkable. There is no periaortic adenopathy or mass. There is lumbar scoliosis convex left. 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 There is no bowel distention or obstruction. There is no ascites. There is no pneumoperitoneum. Pelvis: There is no ascites. Is a Rowley catheter in the bladder the bladder is collapsed. There is no adenopathy. The pelvic bowel loops are unremarkable. There are chronic changes in the left iliac wing, possibly postsurgical. There are new calcifications lateral to the left greater trochanter and there appears to be soft tissue edema associated with these calcifications. These are changes from the prior study and may represent recent trauma. There is no left femoral neck fracture or femoral dislocation. There is internal fixation of the right hip as previously. There is a tiny air/gas bubble in the soft tissues overlying the sacrum with edema in these soft tissues. This is similar in appearance to the prior study. Patient has a known decubitus ulcer. IMPRESSION: There is no ascites or pneumoperitoneum. There is no bowel distention or obstruction. Patient has a known decubitus ulcer over the sacrum. This is again identified. There is a vena cava filter, unchanged. There is a Rowley catheter, unchanged. There is a diverting colostomy in the mid transverse colon, unchanged. There is no bowel distention or obstruction. There are calcifications in soft tissue edema lateral to the left hip greater trochanter, possibly from recent trauma, not present previously. There is no left femoral neck fracture left femoral head dislocation. There is internal fixation of the right hip, as previously. There are no associated lytic, blastic or destructive skeletal changes. <Electronically signed by Ezequiel Price > 01/06/21 [id number]
[2021-01-06] MEDS ORDERED: VANCOMYCIN HCL 1,000 MG in IV FLUID PLACE HOLDER 1 EA IV ONE (19:10)
[2021-01-06] MEDS ORDERED: VANCOMYCIN HCL 750 MG, VIAL MATE ADAPTER 1 EACH in NS 250 ML IV ONE (20:00)
[2021-01-06] MEDS ORDERED: PATIENT COMMENT (20:16)
[2021-01-06] MEDS ORDERED: C 50TAB PO (20:16)
[2021-01-06] MEDS ORDERED: HOME MED LIST COMPLETE! XX SCH (20:20)
--- NOTE | 2021-01-06 20:39 | HPEPDOC ---
[facility] Medical History & Physical Date of Admission Jan 06, 2021 Date of Service: Jan 06, 2021 History and Physical CHIEF COMPLAINT: sepsis HISTORY OF PRESENT ILLNESS: 75-year-old male with extensive past medical history, please see below, was brought to ER after his stoma bag began leaking stool and he wasn't able to replace it as he believes the material sent to him were mismatched. Patient has had numerous prolonged admissions during the past 6 months, most recently admitted on 10/26/20 for failure to thrive and inability to self-care, and was DC to [facility] on 11/15/20. Patient elected to leave from rehab and has been living alone with assistance from his daughter. he has not follow up with wound care or podiatry. He returns to the ER after his colostomy bag began to leak stool and he was unable to replace the bag as his home supplies appeared to be mismatched. During the prior admission on 10/26/20, an excellent summary of treatment of sacral decubitus ulcer and L heel ulcer was written by Dr. Gonsales. I paraphrase the summary as follows: - prolonged hospital stay during admission of 08/14/20: infected stage IV decubitus ulcer infected with ESBL e coli and enterococcus faecalis; L heel unstageable ulcer, Left medial malleolus had another wound measuring 2.1 x 1.2 cm with left Achilles tendon, has a wound measuring 3.4 x 1.6 right heel with a small ulcer measuring 1.5 x 1 cm, debrided by Dr. Olivarez. - wound vac was placed on sacral wound, managed by Dr. Joiner - course complicated by C diff, treated with dificid - colostomy placed by Dr. Smith to reduced stool leakage into sacral wound - UTI with pseudomonas and klebsiella - completed full course of abx, levaquin - numerous debridements of foot ulcers by Dr. Olivarez bedside, with hydrofera blue dressings and offloading - Dr. Webber was on consulted for management of sacral and foot wounds - Pateint was found placement at [facility] and was DC on 11/15/20, but left against advice Patient has now been living alone with occasional assistance from his daughter. He has not had wound care since leaving [place], and has not follow up with Dr. Olivarez or Dr. Webber. He reports to me that he has had poor PO intake and has felt more lethargic in the past several days. On arrival to ER, vitals temp 98.7. HR 778. RR 18. BP 109/54, 92% on RA. Found to have leukocytosis to 18.5 with 81.8% neutrophils. LA 4.1. Cr 3.5 with BUN 79. K 5.4. Patient had minimal amount of UOP. Patient was started on IV vancomycin in ER. Will be admitted to hospitalist service for management of sepsis 2/2 likely infection L heel wound vs sacral wound. UA currently pending. PAST MEDICAL HISTORY: 1. Infected stage IV sacral decubitus status post debridement, diverting colostomy, wound vacuum assisted closure (VAC), extended spectrum beta-lactamase (ESBL) and anaerobic on wound culture. 2. Clostridium (C) difficile colitis, completed 10 days of fidaxomicin. 3. Recurrent mechanical falls at home. 4. Enterococcus urinary tract infection with chronic indwelling Ware catheter. 5. Free air in the abdomen with no source of perforated viscus on exploratory laparoscopy on 08/28/2020. 6. Seizure disorder. 7. 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 8. Chronic back pain status post laminectomy syndrome. 9. Chronic leg weakness due to chronic neuropathy, wheelchair-bound, status post surgery for lumbar spinal tumor and multiple followup surgeries with history of meningocele, pseudomeningocele, arachnoiditis, cyst drainage from the lower back in 2014. 10. Neuropathic Charcot foot, methicillin-resistant Staphylococcus aureus (MRSA) of the right foot and bilateral heel ulcers, chronic. 11. Chronic osteomyelitis of the right distal fibula. 12. Stage IV decubitus prior to hospital admission. 13. Free air in the abdomen with no signs of perforated viscus. 14. Recurrent catheter-associated urinary tract infection. 15. Chronic left shoulder pain. PAST SURGICAL HISTORY: Resection of lumbar tumor 1979 Multiple back surgeries between 1979 and 1995 Left inguinal hernia repair Thoracic laminectomy/lumbar fusion Cyst drained on lower back November 2014 08/24/2020: Dr. Maude Joiner, irrigation and debridement of sacral wound measuring 5 x 7 x 1.5 cm. 08/24/2020: Laparoscopic transverse colostomy placement due to sacral wound, fecal incontinence secondary to spinal cord tumor. 08/28/2020: Diagnostic laparoscopy for free air with normal bowel. No signs of perforation. Wound VAC managed by Dr. Maude Joiner. SOCIAL HISTORY: Denies alcohol use actively states he quit drinking in his 50s Denies tobacco use actively states he quit smoking when he was 31 Denies illicit drug use States lives by himself at home FAMILY HISTORY: Reviewed with patient. No relevant family history provided. ALLERGIES: Please see below. REVIEW OF SYSTEMS: 10 point ROS conducted relevant findings are noted in HPI HOME MEDICATIONS: Please see below. PHYSICAL EXAMINATION: VITAL SIGNS: please see below General: appears ill, lethargic, speaking in full sentences HEENT: PERRLA, EOMI, sclerae clear Neck: supple, normal ROM, no JVD Respiratory: lungs CTAB, no wheeze, no rales, no crackles CVS: RRR, normal S1, S2, no murmurs Abdo: colostomy bag in place, soiled, soft stool seen in bag, no dark stool, non distended abdo, non tender, no rigidity, no guarding Extremities: 2+ pitting edema bilaterally MSK: large sacral wound with eschar 12 x 14 cm, L ischial deep tendon injury, L heel ulcer unstageable 4 x 4 cm, with eschar Neuro: functional paraplegia, CN2-12 intact, speech clear Psych: calm, cooperative, AAO x 3 LABORATORY DATA: See below. IMAGING: CT abdo pelvis wo contrast (01/06/21): There is no ascites or pneumoperitoneum. There is no bowel distention or obstruction. Patient has a known decubitus ulcer over the sacrum. This is again identified. There is a vena cava filter, unchanged. There is a Ware catheter, unchanged. There is a diverting colostomy in the mid transverse colon, unchanged. There is no bowel distention or obstruction. There are calcifications in soft tissue edema lateral to the left hip greater trochanter, possibly from recent trauma, not present previously. There is no left femoral neck fracture left femoral head dislocation. There is internal fixation of the right hip, as previously. There are no associated lytic, blastic or destructive skeletal changes. CXR (01/06/21): Essentially negative portable chest MICROBIOLOGY: Please see below. ASSESSMENT: 75-year-old male with a past medical history of functional paraplegia, wheelchair-bound, numerous back surgeries for meningocele cyst 2014, significant sacral decubitus ulcers and heel ulcers. Colostomy. Seizure disorder on Keppra, admitted with sepsis secondary to his. He had unknown source, possibly secondary to infected wounds, possibly UTI. Patient was started on vancomycin, ceftriaxone and admitted to PCU. Patient also found to have acute renal failure likely prerenal due to reduced PO intake. PLAN: Sepsis 2/2 possibly infected sacral decubitus ulcer/L heel ulcer vs unknown source - WBC 18.6. LA 4.1. Afebrile - blood cultures sent. UA with culture pending - started on empiric vancomycin and ceftriaxone - oliguric, has indwelling ware in place. Monitor UOP - received 1.5L NS bolus total in ER. NS running at 125 cc/hr - LA 4.1 -> 3.1 Acute renal failure - in setting of sepsis/reduced PO intake - likely pre-renal - Cr. 3.5, baseline < 1.0 - monitor UOP after fluid challenge - check renal US - check urine electrolytes, FeNa Large sacral decubitus with eschar, possible source of sepsis - previously treated with wound vac - may require debridement - would recommend day team to consult wound care Dr. Webber, [facility] L ischial wound - wash with vashe, apply foam dressing L heel wound - possible site of infection - will order wound care instructions from past admission - wash with vashe, dressed with hydrofera blue and foam daily - heel offloading boots Neuropathic Charcot foot/ MRSA of right foot/ Bilateral heel ulcers -C/w offloading as stated, Vashe, Hydrofera blue on wound Chronic Leg weakness due to chronic neuropathy / WC bound -s/p surgery for lumber spinal tumor and multiple follow up surgeries from 1979 to 1995/ Meningocele/ pseudomeningocele/ arachnoiditis -Cyst drainage from the lower back in 2014 -Persistent cystic swelling at the back surgery site for years. Flaccid Neurogenic bladder 2/2 to spinal cord surgery -chronic ware Chronic back pain post laminectomy syndrome -C/w gabapentin, lyrica, oxycodone History of seizure disorder -C/w keppra H/o C. Diff colitis, -cont probiotic. Normocytic anemia Will check iron panel, B12, folate, stool for occult blood Vital Signs Vital Signs Date Time Temp Pulse Resp B/P (MAP) Pulse Ox O2 Delivery O2 Flow Rate FiO2 01/06/21 12:39 98.7 78 18 109/54 (72) 92 Room Air Laboratory Data Labs 24H Laboratory Tests 2 01/06/21 15:35: Immature Granulocyte % (Auto) 1.0, Neutrophils (%) (Auto) 81.8H, Lymphocytes (%) (Auto) 8.9L, Monocytes (%) (Auto) 7.9, Eosinophils (%) (Auto) 0.2, Basophils (%) (Auto) 0.2, Neutrophils # (Auto) 15.1H, Lymphocytes # (Auto) 1.7, Monocytes # (Auto) 1.5H, Eosinophils # (Auto) 0.0, Basophils # (Auto) 0.0, Nucleated Red Blood Cells % (auto) 0.0, Anion Gap 9, Glomerular Filtration Rate 18.2L, Lactic Acid Level 4.1*H, Calcium Level 9.1, Magnesium Level 2.3, Total Bilirubin 0.8, Aspartate Amino Transf (AST/SGOT) 81H, Alanine Aminotransferase (ALT/SGPT) 28, Alkaline Phosphatase 107, LC-Hxk-P-Type Natriuretic Peptide 1445H, Total Protein 7.3, Albumin 2.7L, Albumin/Globulin Ratio 0.6 CBC/BMP Laboratory Tests 01/06/21 15:35 Microbiology Microbiology 01/06/21 Blood Culture, Received Pending 01/06/21 Blood Culture, Received Pending Home Medications Scheduled Ascorbic Acid (Vitamin C) 500 Mg Tablet, 500 MG PO BID Levetiracetam (Levetiracetam) 750 Mg Tablet, 750 MG PO DAILY Levetiracetam (Keppra) 1,000 Mg Tablet, 1,000 MG PO QHS Oxycodone HCl (Oxycodone HCl ER) 10 Mg Tab.er.12h, 10 MG PO Q12H Miscellaneous Medications [Patient Comment] UNABLE TO VERIFY MEDICATIONS WITH PATIENT OR FAMILY, MED LIST OBTAINED FROM [facility] WHERE PT WAS DISCHARGE ON THURSDAY. DAUGHTER STATES PATIENT DID HAVE 3 PILL BOTTLES AT HOME, PREGABALIN 150MG, GABAPENTIN 600MG, AND UNK 3RD MED. THESE MEDICATONS WERE NOT BEING ADMINISTERED AT [facility] AND HAS NOT FILLED THESE MEDICATIONS SINCE JULY Allergies Coded Allergies: linezolid (Verified Allergy, Unknown, 04/23/19) A-FIB/CHADSVASC A-FIB History Current/History of A-Fib/PAF?: No GME ATTESTATION GME ATTESTATION My faculty preceptor for this patient encounter was physically present during the encounter and was fully available. All aspects of the patient interview, examination, medical decision making process, and medical care plan development were reviewed and approved by the faculty preceptor. The faculty preceptor is aware and concurs with the plan as stated in the body of this note and will attest to such by his/her cosignature. ATTENDING NOTE I, Cristopher Reynoso MD, have independently examined this patient and performed my own physical exam, as well as reviewed the documentation and edited where necessary. I have discussed in detail with the resident / student the findings and plan of treatment as documented by the resident / student and edited their note. I agree with their findings and treatment plan and have edited their documentation. AUDREY RIVERA MD Jan 06, 2021 20:39 DUNIA BUTT OMS-3 Jan 08, 2021 16:21 CRISTOPHER REYNOSO MD Jan 16, 2021 14:31
[2021-01-06] MEDS ORDERED: MOM 30ML SUSPENSION UDC PO PRN (20:40)
[2021-01-06] MEDS ORDERED: MAALOX 30 ML SUSP *UDC PO PRN (20:40)
[2021-01-06] MEDS ORDERED: NS 1,000 ML IV SCH (20:50)
[2021-01-06] MEDS ORDERED: VANCOMYCIN HCL 500 MG in D5W MINI-BAG PLUS 100 ML IV ONE (21:00)
[2021-01-06] MEDS ORDERED: NS 500 ML IV ONE (21:40)
[2021-01-06 21:52] LABS: RSV AMPLIFICATION NEGATIVE (NEGATIVE)
[2021-01-06] MEDS: DOCUSATE SODIUM 100MG CAPSULE PO SCH (21:53)
[2021-01-06] MEDS ORDERED: cefTRIAXone SOD 1 GM in D5W MINI-BAG PLUS 50 ML IV SCH (23:00)
[2021-01-07] MEDS: levETIRAcetam 250MG TABLET (KEPPRA) PO SCH ×3 (01:31→20:51)
[2021-01-07] MEDS: oxyCODONE 10 MG CR TAB PO SCH ×3 (01:32→20:51)
[2021-01-07] MEDS: HEPARIN SOD (PORCINE) 5000UNITS/ML 1ML VIAL/SYRINGE SC SCH ×3 (06:00→22:58)
--- NOTE | 2021-01-07 08:31 | IPNPDOC ---
Text Note Date of Service The patient was seen on 01/07/21. NOTE Subjective: Pt is a 75 year old male that was admitted to the hospital for pos sible septic infection. When Pt was admitted has had elevated WBC (18K) and elevated lactic acidosis (4.1). Pt was seen in the ER lying supine in his bed. On examination patient was not found to be hypotensive or febrile. Patient is not complaining of any pain from his sacral ulcer, but the patient's previous spinal cord surgery have taken away sensation of anything below his belly. Review of systems: Patient complains of occasional headaches that radiate from his lower back. Patient denies any chest pain, palpitations, SOB, dyspnea, orthopnea, ABD pain, urinary pain, change in stool or urine color, and new extremity pain or weakness. Patient has no feeling or movement in either of his feet from spinal cord surgery. Physical exam: General: Patient is afebrile, non-lethargic, flushed, dry skin on face and arms. Psych: Alert and oriented *3 HEENT: No visible thyromegaly or lymph node enlargement Heart: Normal S1 and S2. No murmurs or extra heart sounds. Lungs: BL clear and equal breath sounds. ABD: No abdominal pain or tenderness on palpitation. Normal bowel sounds on auscultation. Colostomy bag has a leak - can't see any fluid coming out but it can clearly be smelled. Urinary: Patient has a Rowley catheter that is always in. Patient has low urine output from suspected JAIRO. Extremities: Patient has BL pitting edema - patient says this is his baseline. Neuro: Patient has no feeling or movement in BL extremities. Skin: Ulcer on the patient sacrum is Black and red and grossly necrotic, Foot ulcer is red with skin flaking around the ulcer. Imaging: ABD and pelvis CT As reported : IMPRESSION: There is no ascites or pneumoperitoneum. There is no bowel distention or obstruction. Patient has a known decubitus ulcer over the sacrum. This is again identified. There is a vena cava filter, unchanged. There is a Rowley catheter, unchanged. There is a diverting colostomy in the mid transverse colon, unchanged. There is no bowel distention or obstruction. There are calcifications in soft tissue edema lateral to the left hip greater trochanter, possibly from recent trauma, not present previously. There is no left femoral neck fracture left femoral head dislocation. There is internal fixation of the right hip, as previously. There are no associated lytic, blastic or destructive skeletal changes. CXR As reported: IMPRESSION: Essentially negative portable chest Assessment: Pt is a 75 year old male with past medical history of functional paraplegia, wheelchair-bound, numerous back surgeries for meningocele cyst 2015, sacral decubitus ulcers and heel ulcers, Colostomy, and Seizure disorder. Patient came to the ER because of a leak from his colostomy bag. On examination of the patient it was noted that his sacral ulcer was enlarged and necrotic and that his WBCs and lactic acid were elevated. Patient also is hyperkalemic. Sepsis - source of infection either UTI, Sacral ulcer, or LE ulcer. - Patient WBC count in continuing to increase: 18.5 (01/06/21 - 15:35) -> 19.4 (01/07/21) - Lactic acid labs continue 3.1 -> 2.8 - Patient is normotensive without fever. Patient is receiving 125 cc/hr and received a bolus of 1.5L. - Patient was on Vancomycin and Ceftriaxone for possible bacteremia (cultures pending) D/C Ceftriaxone and added on meropenem for better broad anti-biotic coverage and previous drug sensitivity. Sacral Ulcer - Patient has ischemic and necrotic ulcer on his sacrum that cover his entire bottom. - Surgery has been consulted for possible debridement of ulcer. - Antibiotics for systemic infection will help prevent further tissue from ulcer JAIRO - Patient has been oliguric since admission. Presumed to be from dehydration - Patient received 1.5L bolus of fluids on admission +125cc/hr. At 3:00 on 01/07/21. - Patients BUN has remained steady since admission (87->91->86) and Creatinine has also remained steady (3.41 ->n 3.25 -> 3.40) - Patient since admission has made almost no urine. Hyperkalemia - Patient was found to be hyperkalemic on admission. - No EKG changes were found on admission. - Patient was given Insulin, Glucose, and calcium gluconate to treat hyperkalemia - K+: 5.6 -> 5.3 -> 4.7. Foot Ulcer - patient has 2 different 3-4 cm ulcers on his left foot. - Patient as had these ulcers previously and they were complicated by MRSA infection - Patient systemic antibiotics should cover MRSA and other likely organisms. UTI - Patient has a history of recurrent UTIs from indwelling Rowley catheter. - UA was positive for UTI - Patient has bacteria in urine + WBCs + positive leukocyte esterase. - Patient has history of previous UTI with klebsiella and Pseudomonas. - Patient systemic antibiotic coverage will cover possible organisms. Seizures - Patient has seizure history controlled by Keppra - will be continued Colostomy - Patient colostomy bag was leaking when he was admitted - nursing staff helped replace his bag and clean it out. - Patient is on Docusate, Milk of magnesium, a probiotic, and Myalanta. Neuropathy from previous spinal surgery - Patient home meds Acetaminophen and oxycodone will be continued. DVT prophylaxis - Patient os receiving SC Heparin VS,Fishbone, I+O VS, Fishbone, I+O Laboratory Tests 01/06/21 15:35 Vital Signs Date Time Temp Pulse Resp B/P (MAP) Pulse Ox O2 Delivery O2 Flow Rate FiO2 01/07/21 01:48 74 18 114/77 (89) 94 Room Air 01/06/21 12:39 98.7 GME ATTESTATION GME ATTESTATION My faculty preceptor for this patient encounter was physically present during t he encounter and was fully available. All aspects of the patient interview, examination, medical decision making process, and medical care plan development were reviewed and approved by the faculty preceptor. The faculty preceptor is aware and concurs with the plan as stated in the body of this note and will attest to such by his/her cosignature. ATTENDING NOTE I, Cristopher Reynoso MD, have independently examined this patient and performed my own physical exam, as well as reviewed the documentation and edited where necessary. I have discussed in detail with the resident / student the findings and plan of treatment as documented by the resident / student and edited their note. I agree with their findings and treatment plan and have edited their documentation. DUNIA BUTT OMS-3 Jan 07, 2021 08:31 PEDRO PABLO RIOS D.O. Jan 09, 2021 17:33 CRISTOPHER REYNOSO MD Jan 16, 2021 14:25
[2021-01-07] MEDS ORDERED: VANCOMYCIN HCL 1,000 MG, VIAL MATE ADAPTER 1 EACH in NS 250 ML IV SCH (09:00)
[2021-01-07] MEDS: DOCUSATE SODIUM 100MG CAPSULE PO SCH ×2 (09:00→20:51)
[2021-01-07 09:25] LABS: CALCIUM LEVEL 8.5 MG/DL (8.8-10.2); CREATININE FOR GFR 3.41 MG/DL (0.70-1.30); GLOMERULAR FILTRATION RATE 18.8 (>42); POTASSIUM SERUM 5.6 MEQ/L (3.5-5.1); VANCOMYCIN RANDOM 13.9 UG/ML
[2021-01-07 09:27] LABS: BASO % 0.2 % (0.0-1.0); EOS # 0.1 10^3/uL (0.0-0.5); EOS % 0.3 % (0.0-3.0); HEMATOCRIT 44.9 % (42.0-52.0); LYMPH # 1.7 10^3/uL (1.5-5.0); LYMPH % 8.6 % (24.0-44.0); MEAN CORPUSCULAR HEMOGLOBIN 28.7 pg (27.0-33.0); MEAN CORPUSCULAR HGB CONC 32.5 g/dl (32.0-36.5); MEAN CORPUSCULAR VOLUME 88.4 fl (80.0-96.0); MONO # 1.5 10^3/uL (0.0-0.8); MONO % 7.9 % (2.0-8.0); NEUTROPHILS # 15.9 10^3/uL (1.5-8.5); PLATELET COUNT, AUTOMATED 308 10^3/uL (150-450); RED BLOOD COUNT 5.08 10^6/uL (4.30-6.10)
[2021-01-07 09:30] VITALS: BP 107/54
[2021-01-07] MEDS ORDERED: VANCOMYCIN INTERMITTENT/PULSE DOSING BY CLINICAL PHARMACIST PER DOSING PROTOCOL XX SCH (10:05)
[2021-01-07 10:13] LABS: WHITE BLOOD COUNT 19.4 10^3/uL (4.0-10.0)
[2021-01-07 10:17] LABS: HEMOGLOBIN 14.6 g/dl (13.5-17.5)
[2021-01-07] MEDS: ASCORBIC ACID 500 MG TAB PO SCH ×2 (10:17→20:51)
[2021-01-07] MEDS: LACTOBACILLUS ACIDOPHILUS CAP (BACID) PO SCH (10:17)
[2021-01-07] MEDS ORDERED: MEROPENEM INJ 1 GM in IV 1 EA IV SCH (10:40)
[2021-01-07] MEDS ORDERED: HumuLIN R (REGULAR) INSULIN (NovoLIN R) **100U/ML** PER UNIT IV STA (10:49)
[2021-01-07] MEDS ORDERED: DEXTROSE 50% 50 ML SYRINGE IV STA (10:49)
[2021-01-07] MEDS ORDERED: VANCOMYCIN HCL 750 MG, VIAL MATE ADAPTER 1 EACH in NS 250 ML IV ONE (11:00)
[2021-01-07] MEDS ORDERED: CALCIUM GLUCONATE 1,000 MG in D5W MINI-BAG PLUS 100 ML IV ONE (11:00)
[2021-01-07] MEDS: NS 1,000 ML IV SCH ×2 (11:41→20:50)
[2021-01-07 11:46] LABS: CALCIUM LEVEL 8.1 MG/DL (8.8-10.2); CREATININE FOR GFR 3.25 MG/DL (0.70-1.30); GLOMERULAR FILTRATION RATE 19.8 (>42); POTASSIUM SERUM 5.3 MEQ/L (3.5-5.1)
[2021-01-07 12:00] VITALS: BP 124/70
[2021-01-07 14:05] LABS: CALCIUM LEVEL 8.7 MG/DL (8.8-10.2); CREATININE FOR GFR 3.4 MG/DL (0.70-1.30); GLOMERULAR FILTRATION RATE 18.8 (>42); POTASSIUM SERUM 4.7 MEQ/L (3.5-5.1)
[2021-01-07] MEDS: MEROPENEM INJ 500 MG in IV 1 EA IV SCH ×2 (14:29→22:58)
[2021-01-07] MEDS ORDERED: NS 500 ML IV ONE (14:40)
[2021-01-07 15:34] VITALS: BP 117/54
[2021-01-07 20:00] VITALS: BP 97/47
[2021-01-07 20:06] VITALS: BP 100/48
[2021-01-07 23:46] VITALS: BP 133/53
[2021-01-08] VITALS (16 sets, daily range): BP systolic 82–121; BP diastolic 43–68
[2021-01-08] MEDS ORDERED: NS 500 ML IV ONE ×3 (04:00→12:50)
[2021-01-08] MEDS: NS 1,000 ML IV SCH ×3 (05:00→18:29)
[2021-01-08] MEDS: HEPARIN SOD (PORCINE) 5000UNITS/ML 1ML VIAL/SYRINGE SC SCH ×3 (05:19→22:01)
[2021-01-08 05:21] LABS: BASO % 0.1 % (0.0-1.0); EOS % 0.2 % (0.0-3.0); HEMATOCRIT 34.1 % (42.0-52.0); LYMPH # 1.5 10^3/uL (1.5-5.0); LYMPH % 10.6 % (24.0-44.0); MEAN CORPUSCULAR HEMOGLOBIN 28.9 pg (27.0-33.0); MEAN CORPUSCULAR HGB CONC 33.1 g/dl (32.0-36.5); MEAN CORPUSCULAR VOLUME 87.2 fl (80.0-96.0); MONO % 7.4 % (2.0-8.0); NEUTROPHILS # 11.3 10^3/uL (1.5-8.5); NEUTROPHILS % 80.9 % (36.0-66.0); PLATELET COUNT, AUTOMATED 226 10^3/uL (150-450); RED BLOOD COUNT 3.91 10^6/uL (4.30-6.10)
[2021-01-08 05:26] LABS: POTASSIUM RANDOM URINE 41.3 MEQ/L
[2021-01-08 05:26] LABS: HEMOGLOBIN 11.3 g/dl (13.5-17.5)
[2021-01-08 05:39] LABS: CREATININE FOR GFR 3.21 MG/DL (0.70-1.30); GLOMERULAR FILTRATION RATE 20.1 (>42); POTASSIUM SERUM 4.7 MEQ/L (3.5-5.1)
[2021-01-08] MEDS ORDERED: NS 1,000 ML IV ONE ×2 (06:05→12:05)
[2021-01-08] MEDS: DOCUSATE SODIUM 100MG CAPSULE PO SCH (08:06)
--- NOTE | 2021-01-08 08:09 | REPVR ---
PROCEDURE INFORMATION: Exam: US Duplex Lower Extremity Veins, Bilateral Exam date and time: 01/06/2021 11:57 PM Age: 75 years old Clinical indication: Edema, localized and swelling (edema) of limb; Lower extremity, right and lower extremity, left; Additional info: R/O dvt TECHNIQUE: Imaging protocol: Real-time duplex ultrasound of the extremities with 2-D thakkar scale, color Doppler flow and spectral waveform analysis with image documentation. Complete exam focused on the bilateral lower extremity veins. COMPARISON: US Duplex, Ext LOWER veins, bilat 08/14/2020 5:45 PM FINDINGS: The study is limited due to patient's body habitus and immobility. Right deep veins: Unremarkable. The common femoral, femoral, proximal profunda femoral and popliteal veins are patent without thrombus. Normal Doppler waveforms. Normal compressibility and/or augmentation response. Right superficial veins: Saphenofemoral junction is patent without thrombus. Left deep veins: Unremarkable. The common femoral, femoral, proximal profunda femoral and popliteal veins are patent without thrombus. Normal Doppler waveforms. Normal compressibility and/or augmentation response. Left superficial veins: Saphenofemoral junction is patent without thrombus. Soft tissues: Subcutaneous edema is seen in the bilateral calfs. IMPRESSION: Limited exam due to patient's body habitus. Within limitations of the exam, no DVT seen in the right or left common femoral veins through the popliteal veins. Infrapopliteal veins were not visualized. Bilateral calves subcutaneous edema seen. Electronically signed by: Clive Park On 01/08/2021 08:09:08 AM
--- NOTE | 2021-01-08 08:11 | REPVR ---
PROCEDURE INFORMATION: Exam: US Retroperitoneal Limited, Kidneys Exam date and time: 01/06/2021 11:57 PM Age: 75 years old Clinical indication: Condition or disease; Other: Renal failure TECHNIQUE: Imaging protocol: Real-time ultrasound of the retroperitoneum with image documentation. Examination was focused on the kidneys. COMPARISON: CT ABD PELVIS W/O CONTRAST 01/06/2021 5:53 PM FINDINGS: Right kidney: The right kidney measures 10.2 x 5.2 x 5.3 cm. There is no evidence of right renal mass, stone, cyst or hydronephrosis. Left kidney: The left kidney measures 9.6 x 5.1 cm. The left kidney was not visualized on the axial views due to bowel gas. There is no evidence of left renal mass, stone, cyst or hydronephrosis. IMPRESSION: Limited exam due to patient's body habitus and immobility. Within limitations of the exam no gross sonographic evidence of right or left renal abnormality noted. Electronically signed by: Clive Park On 01/08/2021 08:10:48 AM
--- NOTE | 2021-01-08 08:29 | IPNPDOC ---
Text Note Date of Service The patient was seen on 01/08/21. NOTE Subjective: Pt was admitted to the hospital for suspected sepsis. Patient pre sented with elevated WBC and elevated lactic acid on admission. Pt was seen today lying supine in his bed. Pt said that he was feeling better than when he came in. Patient was not in acute distress. Review of systems: Patient has a history of headaches that radiate from his lumbar region to his head - he says that these have been about their normal level of pain. Patient denies any chest pain, palpitations, SOB, dyspnea, ABD pain, urinary pain, numbness or tingling in his arms. Physical exam: General: Patient has no fever or chills Psych: Patient is alert and oriented *3 HEENT: No visible thyroid enlargement or lymph node enlargement Heart: Normal S1 and S2. No murmur or extra heart sounds can be heard Lungs: Breath sounds are clear and equal BL ABD: Patient had regular frequency bowel sounds on auscultation. Complained of no tenderness on palpation Extremities: BL pitting edema of the legs - this is baseline for the patient Neuro: No feeling or movement in either legs at baseline. No weakness in his arms. New imaging: None Assessment: Pt is a 75 year old male with past medical history of functional paraplegia, wheelchair-bound, numerous back surgeries for meningocele cyst 2015, sacral decubitus ulcers and heel ulcers, Colostomy, and Seizure disorder. Patient came to the ER because of a leak from his colostomy bag. On examination today the patient's WBC are decreased, and patient was hypotensive we believe that the patients sepsis has mosly resolved and that his current symptoms are caused by ATN. Sepsis - source of infection either UTI, Sacral ulcer, or LE ulcer. - Patient WBC count decreased from yesterday: 19.4 (01/07/21) -> 14.1 (01/08/21) - Lactic acid labs continue fallen: 3.1 -> 2.8 -> 1.0 (01/08/21) - Patient has been hypotensive overnight and this morning without fever. Patient is receiving 125 cc/hr and received a bolus of 1.5L on admission. Patient will receive 500ml bolus of IV fluid with albumin to try to increase intravascular volume. On exam it was determined that patient still had low intravascular volume (no fluid in the lungs or signs of fluid overload). - Patient vancomycin and meropenem will be continued. Sacral Ulcer - Patient has ischemic and necrotic ulcer on his sacrum that cover his entire bottom. - Surgery has been consulted for possible debridement of ulcer. - Antibiotics for systemic infection will help prevent further tissue from ulcer. JAIRO - Patient has been oliguric since admission. Presumed to be from dehydra tion. We believe that the patient has ATN from prolonged lack of BF to the kidney. - Patient received 1.5L bolus of fluids on admission +125cc/hr. At 3:00 on 01/07/21. - Patient will receive 500ml bolus of IV fluid with albumin to try to increase intravascular volume. - Patients BUN has remained steady since admission (87->91->86 -> 93) and Creatinine has also remained steady (3.41 -> 3.25 -> 3.40 -> 3.21) - Patient made 150 ml of urine from 4am -> 11am. We believe that increasing his intravascular volume will increase urine outflow - will continue to monitor. - Patient made 250 ml of urine from 11am -> 3:30pm. Hyperkalemia - Patient was found to be hyperkalemic on admission. - No EKG changes were found on admission. - Patient was given Insulin, Glucose, and calcium gluconate to treat h yperkalemia. - K+: 5.6 -> 5.3 -> 4.7. Anemia: Cause of patients anemia is presumed to be from fluid administration causing dilution. - Iron study was ordered as a precaution to rule out other causes - waiting on lab results. Foot Ulcer - patient has 2 different 3-4 cm ulcers on his left foot. - Patient as had these ulcers previously and they were complicated by MRSA infection - Patient systemic antibiotics should cover MRSA and other likely organisms. UTI - Patient has a history of recurrent UTIs from indwelling Rowley catheter. - UA was positive for UTI - Patient has bacteria in urine + WBCs + positive leukocyte esterase. - Patient has history of previous UTI with klebsiella and Pseudomonas. - Patient systemic antibiotic coverage will cover possible organisms. Seizures - Patient has seizure history controlled by Keppra - will be continued Colostomy - Patient colostomy bag was leaking when he was admitted - nursing staff helped replace his bag and clean it out yesterday and his bag was replaced again today in the morning. - Patient is on Docusate, Milk of magnesium, a probiotic, and Myalanta. Docusate is being D/C. Neuropathy from previous spinal surgery - Patient home meds Acetaminophen and oxycodone will be continued. DVT prophylaxis - Patient is receiving sc Heparin VS,Fishbone, I+O VS, Fishbone, I+O Laboratory Tests 01/07/21 08:19 01/07/21 11:09 01/07/21 13:24 01/08/21 04:59 Vital Signs Date Time Temp Pulse Resp B/P (MAP) Pulse Ox O2 Delivery O2 Flow Rate FiO2 01/08/21 07:16 97.4 96 18 90/56 (67) 98 Room Air I&O- Last 24 Hours up to 6 AM 01/08/21 06:00 Intake Total 1970 ml Output Total 260 ml Balance 1710 ml GME ATTESTATION GME ATTESTATION My faculty preceptor for this patient encounter was physically present during t he encounter and was fully available. All aspects of the patient interview, examination, medical decision making process, and medical care plan development were reviewed and approved by the faculty preceptor. The faculty preceptor is aware and concurs with the plan as stated in the body of this note and will attest to such by his/her cosignature. ATTENDING NOTE I, Cristopher Reynoso MD, have independently examined this patient and performed my own physical exam, as well as reviewed the documentation and edited where necessary. I have discussed in detail with the resident / student the findings and plan of treatment as documented by the resident / student and edited their note. I agree with their findings and treatment plan and have edited their documentation. DUNIA BUTT OMS-3 Jan 08, 2021 08:29 PEDRO PABLO RIOS D.O. Jan 09, 2021 17:32 CRISTOPHER REYNOSO MD Jan 16, 2021 14:31
[2021-01-08 08:33] LABS: CORTISOL AM 34.6 UG/DL (4.3-22.4)
[2021-01-08] MEDS: LACTOBACILLUS ACIDOPHILUS CAP (BACID) PO SCH (09:28)
[2021-01-08] MEDS: ASCORBIC ACID 500 MG TAB PO SCH ×2 (09:28→22:00)
[2021-01-08] MEDS: levETIRAcetam 250MG TABLET (KEPPRA) PO SCH ×2 (09:28→22:01)
[2021-01-08] MEDS: oxyCODONE 10 MG CR TAB PO SCH ×2 (09:28→21:00)
[2021-01-08] MEDS ORDERED: SODIUM BICARBONATE 8.4% INJ 50MEQ 50 ML VIAL As Ordered ONE (09:38)
[2021-01-08] MEDS ORDERED: LIDOCAINE 1% MDV 20ML VIAL As Ordered ONE (09:39)
[2021-01-08] MEDS ORDERED: SODIUM CHLORIDE 0.9% INJ 10 ML SYR IV PRN (11:35)
[2021-01-08] MEDS: SODIUM CHLORIDE 0.9% INJ 10 ML SYR IV SCH (12:00)
[2021-01-08] MEDS: MEROPENEM INJ 500 MG in IV 1 EA IV SCH ×2 (12:24→22:01)
[2021-01-08 13:14] LABS: AMORPHOUS SEDIMENT SMALL (NEGATIVE); BACTERIA, URINE AUTO 1+ (NEGATIVE); MUCUS, URINE SMALL (NEGATIVE); RBC, URINE AUTO 8 /HPF (0-3); SQUAMOUS EPITHELIAL CELL UR AU 2 /HPF (0-6); WBC, URINE AUTO 31 /HPF (0-3)
[2021-01-08] MEDS ORDERED: VANCOMYCIN HCL 1,000 MG, VIAL MATE ADAPTER 1 EACH in NS 250 ML IV ONE (14:00)
--- NOTE | 2021-01-08 14:03 | CR ---
ADVANCED WOUND CARE CONSULTATION DATE: 01/08/2021 REQUESTING PHYSICIAN: SHARON ROY MD REASON FOR CONSULTATION: Treatment for multiple wounds including right and left lower extremities and sacral and ischial regions. Wound Care Telemedicine provides a visual assessment of a wound without the benefit of physical examination. It can assist with establishing a diagnosis and etiology. This allows for an initial treatment plan. As wounds often change, it may be necessary to modify the original care. Our recommendation is periodic wound reassessment to monitor treatment. Failure to comply may result in nonhealing of the wound or wounds, possible complications, and/or a poor outcome. The recommendations given will serve as treatment options. As I will not be following this patient, this care plan will require the attending physician to give and sign the orders. Upon discharge and/or transfer, outpatient follow-up can be scheduled at our [facility] if needed. This is a 75-year-old male, paraplegic due to spinal cord surgeries,who has significantly declined in his general health and medical condition. Patient had been hospitalized earlier this year for a large sacral pressure injury Stage IV which was debrided by Plastic Surgery and a required a proximal diverting colostomy which was performed. Sometime after, the patient was transferred to [facility] [place]. According to the nurse in attendance, the patient recently signed himself out against medical advice from the rehab center and spent 3 to 4 days at his home.. It is unclear what type of wound care treatment he was getting but his general condition and sacral wound has significantly deteriorated. He also has multiple lower extremity wounds involving the ankle and heels. PHYSICAL EXAMINATION: On physical examination the patient is bed-ridden. He has wounds involving the right lateral malleolus and right heel, lateral aspect with eschar formation. The lateral malleolus wound measures 5.0 cm x 3.5 cm with a wound depth of 0.4 cm with necrotic tissue involving the wound base. The wound edges are raised, slightly erythematous and the vi-wound shows no maceration or ischemic change. The heel wound measures 1.0 cm x 0.5 cm and has a discolored eschar in place which appears fixed and dry. The left lower extremity on the medial malleolar area shows a wound measuring 4.0 cm x 3.5 cm and on the left heel a large wound measuring 7.5 cm x 7.0 cm. There is significant 4+ bilateral dependent edema present. No heel-flow boots were being utilized when the patient was seen. When last telemedicine was performed, heel flow boots had been ordered and were in place. It is unclear if he was being treated at the rehab center without offloading heel float boots.. It is mandatory that these are to be utilized for offloading. Wound care suggestions. Clean all wounds with Vashe Wound Cleanser for 10 minutes. Dress all the lower extremity wounds with Hydrofera Blue Transfer followed by an outer Optilock dressing. Heel flow boots bilaterally. Tubigrip stockings bilaterally to assist with mobilization and control of gravitational dependent edema of the legs The patient has a significant sacral wound Stage IV measuring 20.0 x 12.0 cm with circumferential undermining of 2.0 cm. The wound base consists of necrotic tissue with exposed palpable bone, there is ischemic purplish discoloration involving the vi-wound.. There is copious amounts of wound drainage seropurulent. The initial appearance of the sacral wound mimics a Bob terminal ulcer with its location and discoloration. This is due to shunting of blood away from the skin to preserve vital organs. This is an ominous sign. Patient also has a Stage II pressure injury involving the left ischium which measures 7.5 cm x 7.0 cm. Wound Care: The ischial wound can be covered with Hydrofera Blue Transfer and an Optilock. The sacral wound should be treated with Hydrofera Blue Classic, moistened with saline and wrung out, then placed in in the sacral wound directly over the wound base followed by Drawtex dressing and then covered with an outer Optilock and/or extra absorb dressing. This is necessary to address the copious drainage. all wounds should be redressed every other day except for the sacral wound which should be dressed on a daily basis. Vashe Wound Cleanser can be used for the left ischial and the sacral wounds as well. Patient's nutritional status should be supplemented with Ensure and Mook b.i.d. Patient's IV rate running at 125 can be increased to 150 as the patient is significantly dehydrated with a BUN of 90 and a creatinine of 3. His glomerular filtration rate is 20 and his urine output until fluid challenges was quite low. Hemoglobin and hematocrit 11.3 and 34 which may drop with rehydration and a white count of 14,000. Patient is on two antibiotics and these can be used to treat urinary tract infection, however they are not indicated for wound care and can actually worsen the patient's general renal function. The patient's pulse runs 80 to 90 with a blood pressure of 106/54. Consideration for discontinuing IV antibiotics should be given and coverage with an oral antibiotic for a UTI if this is of high priority. Indwelling Rowley catheter should be changed. Patient's code status is full code, however it should be noted that the patient is declining significantly and a discussion with the family is warranted. If the patient improves, bilateral arterial ultrasounds should be obtained, ideally a CT angio would be preferred, however with renal functions borderline, this should be avoided at this time. Consult with Dr. Joiner of plastic surgery is warranted to debride all wounds. RUDY
--- NOTE | 2021-01-08 17:05 | CR.PDOC ---
Plastic Surgery Consultation Date of Consultation 01/08/21 History and Physical CONSULT REPORT FOR: Medical team REASON FOR CONSULTATION: Sacral wound stage 4 HISTORY OF PRESENT ILLNESS: This is a 75-year-old male with chronic sacral stage IV wound. Patient was seen on previous admission as well for sacral wound debridement. Patient also has a diverting colostomy. He was admitted in July 2020 and discharged in September to rehab facility. Now he is getting admitted with sepsis. His sacral wound has greatly deteriorated. He is also having significant lower extremity edema and acute renal failure. Patient is awake and alert and appears to be oriented to the situation. Patient states he left the rehab facility for several days before getting admitted back to [facility]. Wound care consult is appreciated. Plastics is called to be evaluating sacral and perineal area. 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 FAMILY HISTORY: Noncontributory. HOME MEDICATIONS: Please see below. REVIEW OF SYSTEMS: GENERAL: Denies chills, reports weight gain,. HEENT: Denies blurred vision and double vision. Denies ear symptoms. Denies hoarseness. NECK: Denies any neck pain]. CARDIOVASCULAR: Denies chest pain and palpitations. MUSCULOSKELETAL: Denies arthralgias, back pain and thrombophlebitis. SKIN: Multiple pressure wounds NEUROLOGIC: Denies headache, stroke and transient ischemic attack. PSYCHIATRIC: Denies anxiety and depression. ENDOCRINE: Denies thyroid disease. HEMATOLOGY/ONCOLOGY: Denies bleeding or clotting disorder. HEART: Denies any chest pains, palpitations, paroxysmal dyspnea, orthopnea. PULMONARY: Denies chronic cough, dyspnea and wheezing. GASTROINTESTINAL: Denies rectal bleeding, family history of colon cancer, constipation, diarrhea, dysphagia, heartburn and jaundice. Diverting colostomy in place GENITOURINARY: Denies dysuria, frequency, hematuria and nocturia. ENDOCRINE: Denies polydipsia, polyphagia, polyuria, heat or cold intolerance. INFECTIOUS: Denies any recent upper respiratory tract infection, UTI, need for use of antibiotics. NUTRITION: Reports good appetite. PHYSICAL EXAMINATION: VITALS SIGNS: Please see below. GENERAL APPEARANCE:Patient seen, laying in bed, awake, alert, and oriented. Comfortable, in no acute distress. SKIN: Warm and moist. Sacrum and left hip with large DTI. Sacral wound stage IV with necrotic tissue and rolling edges. DTI surrounding the perineum and sacrum covering both buttocks. Skin is moist partially due to edema. No order. No purulence. NECK: Supple, no thyromegaly. No obvious jugular venous distention. LUNGS: Clear to auscultation bilaterally. No wheezing appreciated. HEART: No chest wall abnormalities. Regular rate and rhythm with no murmurs appreciated. ABDOMEN: Abdomen is soft, non-tender, non-distended. Diverting colostomy. EXTREMITIES: Extremities have no deformities. No edema identified. No calf tenderness. LABORATORY DATA: Please see below. IMAGING STUDIES: CT abdomen pelvis confirmed sacral ulcer not significantly changed. There are calcifications in soft tissue edema lateral to the left hip greater trochanter, possibly from recent trauma, not present previously. There is no left femoral neck fracture left femoral head dislocation IMPRESSION: Sacral chronic ulcer stage IV with significant DTI throughout the both buttocks perineum and left hip area. Both lower extremities with severe ed maria del carmen. No acute infection observed in the sacrum or throughout the buttocks. Necrotic tissue is present as well as DTI which may progress to deeper tissue damage. PLANS: We will start with chemical debridement right now using Santyl daily and as needed. Continue with Hydrofera Blue dressings and absorbent cover dressings as well. We will continue following the patient and will do mechanical debridement as his general condition improves. Vital Signs Vital Signs Date Time Temp Pulse Resp B/P (MAP) Pulse Ox O2 Delivery O2 Flow Rate FiO2 01/08/21 16:24 97.7 85 20 105/50 (68) 97 Room Air I&Os I&O- Last 24 Hours up to 6 AM 01/08/21 06:00 Intake Total 4145 ml Output Total 260 ml Balance 3885 ml Laboratory Data Labs 24H Laboratory Tests 2 01/08/21 04:15: Urine Random Creatinine 93.0, Urine Random Sodium 20, Urine Random Potassium 41.3, Urine Random Urea Nitrogen 490 01/08/21 04:59: Immature Granulocyte % (Auto) 0.8, Neutrophils (%) (Auto) 80.9H, Lymphocytes (%) (Auto) 10.6L, Monocytes (%) (Auto) 7.4, Eosinophils (%) (Auto) 0.2, Basophils (%) (Auto) 0.1, Neutrophils # (Auto) 11.3H, Lymphocytes # (Auto) 1.5, Monocytes # (Auto) 1.0H, Eosinophils # (Auto) 0.0, Basophils # (Auto) 0.0, Nucleated Red Blood Cells % (auto) 0.0, Anion Gap 9, Glomerular Filtration Rate 20.1L, Calcium Level 7.0#L, Cortisol AM Sample 34.6H 01/08/21 06:26: Lactic Acid Level 1.0, Whole Blood Ionized Calcium 4.1L 01/08/21 12:25: Urine WBC (Auto) 31H, Urine RBC (Auto) 8H, Urine Hyaline Casts (Auto) 0, Urine Bacteria (Auto) 1+H, Urine Squamous Epithelial Cells 2, Urine Amorphous Sediment (Auto) SMALLH, Urine Mucus (Auto) SMALL, Urine Sperm (Auto) , Vancomycin Level Trough 7.4L CBC/BMP Laboratory Tests 01/08/21 04:59 Microbiology Microbiology 01/08/21 Gram Stain - Final, Resulted 01/08/21 Wound Culture, Resulted Pending 01/07/21 Urine Culture, Received Pending 01/06/21 Blood Culture - Preliminary, Resulted No growth after 24 hours . All specim... 01/06/21 Blood Culture - Preliminary, Resulted No growth after 24 hours . All specim... Home Medications Scheduled Ascorbic Acid (Vitamin C) 500 Mg Tablet, 500 MG PO BID, (Reported) Levetiracetam (Levetiracetam) 750 Mg Tablet, 750 MG PO DAILY, (Reported) Levetiracetam (Keppra) 1,000 Mg Tablet, 1,000 MG PO QHS, (Reported) Oxycodone HCl (Oxycodone HCl ER) 10 Mg Tab.er.12h, 10 MG PO Q12H, (Reported) Miscellaneous Medications [Patient Comment] , (Reported) UNABLE TO VERIFY MEDICATIONS WITH PATIENT OR FAMILY, MED LIST OBTAINED FROM [facility] WHERE PT WAS DISCHARGE ON THURSDAY. DAUGHTER STATES PATIENT DID HAVE 3 PILL BOTTLES AT HOME, PREGABALIN 150MG, GABAPENTIN 600MG, AND UNK 3RD MED. THESE MEDICATONS WERE NOT BEING ADMINISTERED AT [facility] AND HAS NOT FILLED THESE MEDICATIONS SINCE JULY Allergies Coded Allergies: linezolid (Verified Allergy, Unknown, 04/23/19) CHRISTOPHER HERNANDEZ DO Jan 08, 2021 17:05
--- NOTE | 2021-01-08 17:06 | REP ---
PROCEDURE NAME: PICC LINE INSERTION W/SITERITE CLINICAL INFORMATION: poor access. COMPARISON: None. PROCEDURE DESCRIPTION: The procedure was performed by RAUL Bonilla, under the direct supervision of Dr. Padilla. The risks and benefits of the procedure were explained to the patient and an informed consent was obtained both verbally and written. Directly prior to the start of the procedure a formal time-out was completed in the procedure room. The right lateral brachial vein was localized using ultrasound guidance. The skin was prepped and draped in sterile fashion. One mL of 1% lidocaine 10 mg/mL was used as a local anesthetic. Using ultrasound guidance the right lateral brachial vein was cannulated, and a 0.018 guidewire was inserted and advanced to the level of SVC using fluoroscopic guidance. The needle was removed and a 5.5 Polish dilator and peel-away sheath was inserted over the guidewire. A 5.5 Polish dual lumen catheter was cut to a length of 45 cm. The dilator was removed and the catheter was inserted over the guidewire with the tip ending at the level of the SVC. The peel-away sheath was removed and the catheter was flushed with heparinized saline as per hospital protocol. The catheter was affixed to the skin and a sterile dressing was applied. The patient tolerated the procedure well and there were no immediate complications. CONCLUSION: PICC line insertion into the right lateral brachial vein. 0.3 minutes of fluoroscopy time was utilized for this procedure. Some fluoroscopic images are performed with last image hold technology. These images require no additional radiation. <Electronically signed by Shannon Gunter > 01/08/21 1547 <Electronically signed by Jacobo Padilla > 01/08/21 1700
[2021-01-08] MEDS ORDERED: SANTYL OINT 30GM TOP PRN (20:45)
[2021-01-09] VITALS (14 sets, daily range): BP systolic 89–130; BP diastolic 44–72
[2021-01-09] MEDS: NS 1,000 ML IV SCH ×3 (03:47→21:57)
[2021-01-09] MEDS: HEPARIN SOD (PORCINE) 5000UNITS/ML 1ML VIAL/SYRINGE SC SCH ×3 (05:31→21:53)
[2021-01-09] MEDS: SODIUM CHLORIDE 0.9% INJ 10 ML SYR IV SCH ×2 (05:32→18:00)
[2021-01-09 05:51] LABS: BASO % 0.1 % (0.0-1.0); EOS # 0.1 10^3/uL (0.0-0.5); EOS % 1.1 % (0.0-3.0); HEMATOCRIT 28.7 % (42.0-52.0); HEMOGLOBIN 9.6 g/dl (13.5-17.5); MEAN CORPUSCULAR HEMOGLOBIN 29.3 pg (27.0-33.0); MEAN CORPUSCULAR HGB CONC 33.4 g/dl (32.0-36.5); MEAN CORPUSCULAR VOLUME 87.5 fl (80.0-96.0); MONO # 0.7 10^3/uL (0.0-0.8); MONO % 7.6 % (2.0-8.0); NEUTROPHILS # 7.4 10^3/uL (1.5-8.5); NEUTROPHILS % 79.4 % (36.0-66.0); PLATELET COUNT, AUTOMATED 210 10^3/uL (150-450); RED BLOOD COUNT 3.28 10^6/uL (4.30-6.10); WHITE BLOOD COUNT 9.3 10^3/uL (4.0-10.0)
[2021-01-09 06:09] LABS: CALCIUM LEVEL 7.1 MG/DL (8.8-10.2); CREATININE FOR GFR 2.79 MG/DL (0.70-1.30); GLOMERULAR FILTRATION RATE 23.7 (>42); POTASSIUM SERUM 4.2 MEQ/L (3.5-5.1)
[2021-01-09] MEDS: ASCORBIC ACID 500 MG TAB PO SCH ×2 (09:31→21:54)
[2021-01-09] MEDS: oxyCODONE 10 MG CR TAB PO SCH ×2 (09:31→21:53)
[2021-01-09] MEDS: levETIRAcetam 250MG TABLET (KEPPRA) PO SCH ×2 (09:32→21:53)
[2021-01-09] MEDS: SANTYL OINT 30GM TOP SCH (09:32)
[2021-01-09] MEDS: LACTOBACILLUS ACIDOPHILUS CAP (BACID) PO SCH (09:32)
[2021-01-09] MEDS ORDERED: NS 500 ML IV ONE (10:55)
--- NOTE | 2021-01-09 11:19 | IPNPDOC ---
Text Note Date of Service The patient was seen on 01/09/21. NOTE Subjective: Patient was admitted to the hospital for Sepsis secondary to inf ection on the sacrum, UTI or foot ulcer. Patient was seen today lying supine in his bed. Patient was in no acute distress. Pt says that he is feeling about the same as yesterday in regards to health. His only new complaints are fatigue and feeling cold. Review of systems: Patient says that his headaches from his previous lumbar surgery are less than yesterday, Pt denies chest pain, palpitations, SOB, dyspnea, ABD pain, urinary pain, numbness, or tingling. Physical exam: General: Patient has no fever or chills Psych: Alert and oriented*3 HEENT: No visible thyroid or lymph node enlargement Heart: Normal S1 and S2. No murmur or extra heart sounds on auscultation. Lungs: BL clear and equal lung sounds in all lobes. Extremities: BL pitting edema same as baseline Neuro: Patient has no weakness in UE from baseline. Assesment: Assessment: Pt is a 75 year old male with past medical history of functional paraplegia, wheelchair-bound, numerous back surgeries for meningocele cyst 2015, sacral decubitus ulcers and heel ulcers, Colostomy, and Seizure disorder. Patient came to the ER because of a leak from his colostomy bag. On examination today the patient's WBC are decreased, and patient was hypotensive we believe that the patients sepsis and JAIRO have mostly resolved. Patient is making urine currently and main concern with management is monitoring kidney function and treating his sacral ulcer. Sepsis - source of infection either UTI, Sacral ulcer, or LE ulcer. - Patient WBC count decreased from yesterday: 19.4 (01/07/21) -> 14.1 (01/08/21) -> 9.3 (01/09/21) - Lactic acid labs continue fallen: 3.1 -> 2.8 -> 1.0 (01/08/21) -> .7 (01/10/21) - Patient has been hypotensive overnight and this morning without fever. Patient had a BP of 130/72 this morning. Patient BP and volume status has drastically improved from admission especially after administration of albumin and fluids. - Patient vancomycin and meropenem will be continued. Sacral Ulcer - Patient has ischemic and necrotic ulcer on his sacrum that cover his entire bottom. - Surgery has been consulted for possible debridement of ulcer. - Antibiotics for systemic infection will help prevent further tissue from ulcer. JAIRO - Patient has been oliguric since admission. Presumed to be from dehydration. We believe that the patient has ATN from prolonged lack of BF to the kidney. - Patient received 1.5L bolus of fluids on admission +125cc/hr. At 3:00 on 01/07/21. - Patient will receive 500ml bolus of IV fluid with albumin to try to increase intravascular volume. - Patients BUN has remained steady since admission (87->91->86 -> 93 -> 91) and Creatinine has also remained steady (3.41 -> 3.25 -> 3.40 -> 3.21) until today when his creatinine fell to 2.79. - Patient made over 1000 ml of urine from yesterday. - Patient made 300 ml of urine from 6:30am -> 8:15am. Hyperkalemia - Patient was found to be hyperkalemic on admission, now resolved - No EKG changes were found on admission. - Patient was given Insulin, Glucose, and calcium gluconate to treat hyperkalemia. - K+: 5.6 -> 5.3 -> 4.7 -> 4.2. Anemia - Cause of patients anemia is presumed to be from IV fluid administration causing dilution. Foot Ulcer - patient has 2 different 3-4 cm ulcers on his left foot. - Patient as had these ulcers previously and they were complicated by MRSA infection. - Patient systemic antibiotics should cover MRSA and other likely organisms. UTI - Patient has a history of recurrent UTIs from indwelling Rowley catheter. - UA was positive for UTI - Patient has bacteria in urine + WBCs + positive leukocyte esterase. - Urine culture grew Klebsiella, abx coverage as above with meropenem - Patient has history of previous UTI with klebsiella and Pseudomonas. - Patient systemic antibiotic coverage will cover possible organisms. Seizures - Patient has seizure history controlled by Keppra - will be continued Colostomy - Patient colostomy bag was leaking when he was admitted - nursing staff helped replace his bag and clean it out yesterday and his bag was replaced again today in the morning. - Patient is on Docusate, Milk of magnesium, a probiotic, and Myalanta. Docusate is being D/C. Neuropathy from previous spinal surgery - Patient home meds Acetaminophen and oxycodone will be continued. DVT prophylaxis - Patient is receiving SC Heparin Disposition: pending clinical improvement, would likely benefit from placement vs home services Code status: Full code VS,Daquane, I+O VS, Royerbone, I+O Laboratory Tests 01/09/21 05:30 Vital Signs Date Time Temp Pulse Resp B/P (MAP) Pulse Ox O2 Delivery O2 Flow Rate FiO2 01/09/21 09:31 12 Room Air 01/09/21 08:00 97.6 84 130/72 (91) 100 I&O- Last 24 Hours up to 6 AM 01/09/21 05:59 Intake Total 5995.0 ml Output Total 980 ml Balance 5015.0 ml GME ATTESTATION GME ATTESTATION My faculty preceptor for this patient encounter was physically present during the encounter and was fully available. All aspects of the patient interview, examination, medical decision making process, and medical care plan development were reviewed and approved by the faculty preceptor. The faculty preceptor is aware and concurs with the plan as stated in the body of this note and will attest to such by his/her cosignature. ATTENDING NOTE I, Cristopher Reynoso MD, have independently examined this patient and performed my own physical exam, as well as reviewed the documentation and edited where necessary. I have discussed in detail with the resident / student the findings and plan of treatment as documented by the resident / student and edited their note. I agree with their findings and treatment plan and have edited their documentation. DUNIA BUTT OMS-3 Jan 09, 2021 11:19 PEDRO PABLO RIOS D.O. Jan 09, 2021 17:31 CRISTOPHER REYNOSO MD Jan 16, 2021 14:34
[2021-01-09] MEDS: MEROPENEM INJ 500 MG in IV 1 EA IV SCH ×2 (12:04→22:00)
[2021-01-09] MEDS ORDERED: VANCOMYCIN HCL 750 MG, VIAL MATE ADAPTER 1 EACH in NS 250 ML IV ONE (17:00)
[2021-01-10] VITALS: BP 121/58
[2021-01-10 04:00] VITALS: BP 108/54
[2021-01-10] MEDS: HEPARIN SOD (PORCINE) 5000UNITS/ML 1ML VIAL/SYRINGE SC SCH ×3 (05:19→21:43)
[2021-01-10] MEDS: SODIUM CHLORIDE 0.9% INJ 10 ML SYR IV SCH ×2 (05:19→18:21)
[2021-01-10 05:39] LABS: BASO % 0.1 % (0.0-1.0); EOS # 0.2 10^3/uL (0.0-0.5); EOS % 2.2 % (0.0-3.0); HEMATOCRIT 27.2 % (42.0-52.0); HEMOGLOBIN 9.1 g/dl (13.5-17.5); LYMPH # 1.3 10^3/uL (1.5-5.0); LYMPH % 15.2 % (24.0-44.0); MEAN CORPUSCULAR HEMOGLOBIN 29.2 pg (27.0-33.0); MEAN CORPUSCULAR HGB CONC 33.5 g/dl (32.0-36.5); MEAN CORPUSCULAR VOLUME 87.2 fl (80.0-96.0); MONO # 0.7 10^3/uL (0.0-0.8); MONO % 7.8 % (2.0-8.0); NEUTROPHILS # 6.4 10^3/uL (1.5-8.5); NEUTROPHILS % 73.8 % (36.0-66.0); PLATELET COUNT, AUTOMATED 218 10^3/uL (150-450); RED BLOOD COUNT 3.12 10^6/uL (4.30-6.10); WHITE BLOOD COUNT 8.7 10^3/uL (4.0-10.0)
[2021-01-10 06:01] LABS: CALCIUM LEVEL 7.6 MG/DL (8.8-10.2); CREATININE FOR GFR 2.6 MG/DL (0.70-1.30); GLOMERULAR FILTRATION RATE 25.7 (>42); POTASSIUM SERUM 4.3 MEQ/L (3.5-5.1)
[2021-01-10 08:00] VITALS: BP 97/50
--- NOTE | 2021-01-10 08:46 | IPNPDOC ---
Text Note Date of Service The patient was seen on 01/10/21. NOTE Subjective: Patient was admitted for sepsis from extension of infection at the sacral ulcer, UTI or left lower extremity ulcer. Patient was seen lying supine in his bed today. Patient was not in acute distress. Patient asked the medical team for a timeline for his discharge and said that he was feeling better and felt he could go home. The medical team explained to the patient that there was still concern that if his sacral ulcer was not properly treated he would become septic again and be back in the hospital in a few days. Pt also complained of leg pain that he has had chronically getting worse recently. He says that he has leg pain that feels spastic for 10-20 minute episodes 1-5 times a day. Review of systems: Patient says that he had no headaches yesterday or this morning. Patient denies chest pain, palpitations, SOB, dyspnea, ABD pain, urinary pain. No pain or abnormal feeling in his extremities other than the spastic leg pain described above. Physical exam: General: No fever or chills Psych: Alert and oriented *3 Heart: Normal S1 and S2. No murmurs or abnormal heart sounds. Lungs: BL clear and equal lung sounds. ABD: Auscultation reveals normal frequency of bowel sounds. No tenderness on auscultation. Neuro: No weakness or loss of sensation in arms. Extremeities: BL pitting edema that is present at baseline for the patient. Assessment: 75 year old male with previous medical history of functional paraplegia, wheelchair-bound, numerous back surgeries for meningocele cyst 2015, sacral decubitus ulcers and heel ulcers, Colostomy, and Seizure disorder. Patient came to the ER because colostomy bag leakage. Patient was found to be sepic on admission and have JAIRO that progressed to ATN. Patient is now making good urine output and has no signs and symptoms of either JAIRO or sepsis. Main concern with managment is treating his sacral wound, foot ulcer, and UTI to prevent sepsis from reoccurring. Sepsis - source of infection either UTI, Sacral ulcer, or LE ulcer. - Patient WBC count decreased from yesterday: 9.3 (01/09/21) -> 8.7 (01/10/21) - Lactic acid labs continue fallen: 3.1 -> 2.8 -> 1.0 (01/08/21) -> .7 (01/10/21) - Patient was normotensive this morning and had a BP of 108/52 overnight. - Urine culture grew Klebsiella and enterococcus, wound culture remains pending. - Blood cultures x2 negative - Patient vancomycin will be continued, will dc meropenem and start ceftriaxone based on sensitivities. Abx day #5 of 7. Sacral Ulcer - Patient has ischemic and necrotic ulcer on his sacrum that cover his entire bottom. - Dr. Webber consulted for wound care, appreciate recommendations. - Dr. Joiner is planning to first perform chemical debridement then mechanical debridement of the ulcer,. - Abx coverage as above JAIRO - Patient has been oliguric since admission. Presumed to be from dehydration. We believe that the patient has ATN from prolonged lack of blood flow to the kidney. - Patient received 1.5L bolus of fluids on admission +75cc/hr. Patient also received 3 50ml bags of albumin in the last 2 days. - Patients BUN dropped last night 91 (01/09/21) and Creatinine has also dropped over the last two days 3.21 (01/08/21) -> 2.79(01/09/21) -> 2.60 (01/10/21). - Patient made over 1000 ml of urine from yesterday and the day before - Patient made 450 ml of urine from this morning before 8:00. Hyperkalemia - Patient was found to be hyperkalemic on admission, now resolved - No EKG changes were found on admission. - Patient was given Insulin, Glucose, and calcium gluconate to treat hyperkalemia. - K+: 5.6 -> 5.3 -> 4.7 -> 4.2. Anemia - Cause of patients anemia is presumed to be from IV fluid administration causing dilution. Foot Ulcer - patient has 2 different 3-4 cm ulcers on his left foot. - Patient as had these ulcers previously and they were complicated by MRSA infection. - Patient systemic antibiotics should cover MRSA and other likely organisms. UTI - Patient has a history of recurrent UTIs from indwelling Rowley catheter. - UA was positive for UTI - Patient has bacteria in urine + WBCs + positive leukocyte esterase. - Urine culture grew Klebsiella and enterococci, abx coverage as above with meropenem - Antibiotic coverage as above with vanco for enterococci and ceftriaxone for Klebsiella. Seizures - Patient has seizure history controlled by Keppra - will be continued Colostomy - Patient colostomy bag was leaking when he was admitted - nursing staff helped replace his bag and clean it out yesterday and his bag was replaced again today in the morning. - Patient is on Milk of magnesium, a probiotic, and Myalanta. Neuropathy from previous spinal surgery - Patient home meds Acetaminophen and oxycodone will be continued. - Patient was complaining of intermittent spastic leg pain, may consider adding agent to address neuropathic pain if persistent. DVT prophylaxis - Patient is receiving SC Heparin Disposition: pending clinical improvement, would likely benefit from placement vs home services Code status: DNR/DNI VS,Fishbone, I+O VS, Fishbone, I+O Laboratory Tests 01/10/21 05:21 Vital Signs Date Time Temp Pulse Resp B/P (MAP) Pulse Ox O2 Delivery O2 Flow Rate FiO2 01/10/21 04:00 98.6 61 17 108/54 (72) 97 Room Air I&O- Last 24 Hours up to 6 AM 01/10/21 06:00 Intake Total 2780.0 ml Output Total 1525 ml Balance 1255.0 ml GME ATTESTATION GME ATTESTATION My faculty preceptor for this patient encounter was physically present during the encounter and was fully available. All aspects of the patient interview, examination, medical decision making process, and medical care plan development were reviewed and approved by the faculty preceptor. The faculty preceptor is aware and concurs with the plan as stated in the body of this note and will attest to such by his/her cosignature. ATTENDING NOTE I, Cristopher Reynoso MD, have independently examined this patient and performed my own physical exam, as well as reviewed the documentation and edited where necessary. I have discussed in detail with the resident / student the findings and plan of treatment as documented by the resident / student and edited their note. I agree with their findings and treatment plan and have edited their documentation. DUNIA BUTT OMS-3 Jan 10, 2021 08:46 PEDRO PABLO RIOS D.O. Jan 10, 2021 17:08 CRISTOPHER REYNOSO MD Jan 16, 2021 14:49
[2021-01-10] MEDS: levETIRAcetam 250MG TABLET (KEPPRA) PO SCH ×2 (08:47→20:55)
[2021-01-10] MEDS: ASCORBIC ACID 500 MG TAB PO SCH ×2 (08:47→20:57)
[2021-01-10] MEDS: LACTOBACILLUS ACIDOPHILUS CAP (BACID) PO SCH (08:47)
[2021-01-10] MEDS: oxyCODONE 10 MG CR TAB PO SCH ×2 (08:48→20:57)
[2021-01-10] MEDS: SANTYL OINT 30GM TOP SCH (08:49)
[2021-01-10] MEDS ORDERED: cefTRIAXone SOD 1 GM in D5W MINI-BAG PLUS 50 ML IV SCH (13:00)
[2021-01-10] MEDS: NS 1,000 ML IV SCH (13:05)
[2021-01-10 16:00] VITALS: BP 113/57
[2021-01-10] MEDS: ACETAMINOPHEN TAB 650MG DOSE (2X325MG) PO PRN (18:22)
[2021-01-10 20:00] VITALS: BP 116/57
[2021-01-10] MEDS ORDERED: VANCOMYCIN HCL 1,000 MG, VIAL MATE ADAPTER 1 EACH in NS 250 ML IV ONE (23:30)
[2021-01-11] MEDS: NS 1,000 ML IV SCH (01:38)
[2021-01-11 06:00] VITALS: BP 113/56
[2021-01-11] MEDS: HEPARIN SOD (PORCINE) 5000UNITS/ML 1ML VIAL/SYRINGE SC SCH ×3 (06:42→22:03)
[2021-01-11] MEDS: SODIUM CHLORIDE 0.9% INJ 10 ML SYR IV SCH ×2 (06:44→18:00)
--- NOTE | 2021-01-11 07:07 | IPNPDOC ---
Text Note Date of Service The patient was seen on 01/11/21. NOTE Subjective: Pt was admitted to the hospital for sepsis. Patient was seen today lying supine in his bed. Pt was woken up by medical team rounding. Pt was at first appeared delirious because he had just woken up. Patient's mental status was assessed and he was found to be Alert and oriented *3. Patient says that he feels good and physically about the same as yesterday. Review of systems: Patient says that he had no headaches last night, No N/V, No chest pain, palpitations, SOB, dyspnea, ABD pain, urinary pain, or numbness and tingling in his arms. Physical exam: General: No fever or chills HEENT: No enlargement of thyroid or lymph nodes on exam. Patient did have pain with neck movement - most likely attributable to previous lumbar surgery and associated nerve pain. Psych: Patient is alert and oriented*3 Heart: Normal S1 and S2. No murmur or extra heart sounds. Lungs: BL clear and equal sounds ABD: Normal frequency and volume on auscultation. No pain or tenderness with palpation Urinary: No pus or drainage from catheter site. Redness of the testicles is present - but this is baseline. Neuro: No Weakness in Upper extremities. Assessment: 75 year old male with past medical history of functional paraplegia caused by back surgery in 2015, Seizures, Sacral ulcer, LLE ulcer, recurrent UTIs. Patient initially came to the ED because of a suspected leak from his colostomy bag. Pt was found to be septic with JAIRO that progressed from pre-renal azotemia to ATN, which has now resolved Plan: Sepsis - source of infection either UTI, Sacral ulcer, or LE ulcer. - Patient WBC count has remained steady: 8.7 (01/10/21) -> 9.4 (01/11/21) - Lactic acid labs continue fallen: 3.1 -> 2.8 -> 1.0 (01/08/21) -> .7 (01/10/21) - Patient was normotensive this morning. - Urine culture grew Klebsiella and enterococcus, wound culture remains pending. - Blood cultures x2 negative - Continue vancomycin, will restart meropenem and d/c ceftriaxone based on wound culture results. Abx day #6 of 7. Sacral Ulcer - Patient has ischemic and necrotic ulcer on his sacrum that cover his entire bottom. - Dr. Webber consulted for wound care, appreciate recommendations. - Dr. Joiner is planning to first perform chemical debridement then mechanical debridement of the ulcer. - Abx coverage as above JAIRO - Patient has been oliguric since admission. Presumed to be from dehydration. We believe that the patient has ATN from prolonged lack of blood flow to the kidney. - Patient received 1.5L bolus of fluids on admission +75cc/hr. Patient also received 3 50ml bags of albumin in the last 2 days. - Patients BUN dropped last night 91 (01/09/21) and Creatinine has also dropped over the last two days: 2.60 (01/10/21) -> 2.27 (01/11/21) - Urine output continues to improve Hyperkalemia - Patient was found to be hyperkalemic on admission, now resolved - No EKG changes were found on admission. - Patient was given Insulin, Glucose, and calcium gluconate to treat hyperkalemia. - K+: 5.6 -> 5.3 -> 4.7 -> 4.2. Anemia - Cause of patients anemia is presumed to be from IV fluid administration causing dilution. Foot Ulcer - patient has 2 different 3-4 cm ulcers on his left foot. - Patient as had these ulcers previously and they were complicated by MRSA infection. - Patient systemic antibiotics should cover MRSA and other likely organisms. UTI - Patient has a history of recurrent UTIs from indwelling Rowley catheter. - UA was positive for UTI - Patient has bacteria in urine + WBCs + positive leukocyte esterase. - Urine culture grew Klebsiella and enterococci, abx coverage as above with meropenem - Antibiotic coverage as above Seizures - Patient has seizure history controlled by Keppra - will be continued Colostomy - Patient colostomy bag was leaking when he was admitted - nursing staff helped replace his bag and clean it out yesterday and his bag was replaced again today in the morning. - Patient is on Milk of magnesium, a probiotic, and Myalanta. Neuropathy from previous spinal surgery - Patient home meds Acetaminophen and oxycodone will be continued. - Patient was complaining of intermittent spastic leg pain, may consider adding agent to address neuropathic pain if persistent. DVT prophylaxis - Patient is receiving SC Heparin Disposition: pending clinical improvement, PFS working on placement when medically stable Code status: DNR/DNI VS,Larry I+O VS, Fishbone, I+O Vital Signs Date Time Temp Pulse Resp B/P (MAP) Pulse Ox O2 Delivery O2 Flow Rate FiO2 01/11/21 06:00 98.0 78 18 113/56 (75) 99 Room Air I&O- Last 24 Hours up to 6 AM 01/11/21 05:59 Intake Total 680 ml Output Total 1000 ml Balance -320 ml GME ATTESTATION GME ATTESTATION My faculty preceptor for this patient encounter was physically present during the encounter and was fully available. All aspects of the patient interview, examination, medical decision making process, and medical care plan development were reviewed and approved by the faculty preceptor. The faculty preceptor is aware and concurs with the plan as stated in the body of this note and will attest to such by his/her cosignature. ATTENDING NOTE I, Cristopher Reynoso MD, have independently examined this patient and performed my own physical exam, as well as reviewed the documentation and edited where necessary. I have discussed in detail with the resident / student the findings and plan of treatment as documented by the resident / student and edited their note. I agree with their findings and treatment plan and have edited their documentation. GME ATTESTATION GME ATTESTATION My faculty preceptor for this patient encounter was physically present during the encounter and was fully available. All aspects of the patient interview, examination, medical decision making process, and medical care plan development were reviewed and approved by the faculty preceptor. The faculty preceptor is aware and concurs with the plan as stated in the body of this note and will attest to such by his/her cosignature. ATTENDING NOTE I, Cristopher Reynoso MD, have independently examined this patient and performed my own physical exam, as well as reviewed the documentation and edited where necessary. I have discussed in detail with the resident / student the findings and plan of treatment as documented by the resident / student and edited their note. I agree with their findings and treatment plan and have edited their documentation. DUNIA BUTT OMS-3 Jan 11, 2021 07:06 PEDRO PABLO RIOS D.O. Jan 11, 2021 17:04 CRISTOPHER REYNOSO MD Jan 16, 2021 15:32
[2021-01-11] MEDS: SANTYL OINT 30GM TOP SCH (09:00)
[2021-01-11] MEDS: LACTOBACILLUS ACIDOPHILUS CAP (BACID) PO SCH (11:00)
[2021-01-11] MEDS: levETIRAcetam 250MG TABLET (KEPPRA) PO SCH ×2 (11:00→22:05)
[2021-01-11] MEDS: ACETAMINOPHEN TAB 650MG DOSE (2X325MG) PO PRN ×2 (11:01→22:04)
[2021-01-11] MEDS: oxyCODONE 10 MG CR TAB PO SCH ×2 (11:01→21:00)
[2021-01-11] MEDS: ASCORBIC ACID 500 MG TAB PO SCH ×2 (11:01→22:03)
[2021-01-11] MEDS: MEROPENEM INJ 1 GM in IV 1 EA IV SCH ×2 (11:02→22:03)
[2021-01-11 13:28] LABS: BASO % 0.2 % (0.0-1.0); EOS # 0.2 10^3/uL (0.0-0.5); EOS % 1.9 % (0.0-3.0); HEMATOCRIT 25.6 % (42.0-52.0); HEMOGLOBIN 8.6 g/dl (13.5-17.5); LYMPH # 1.5 10^3/uL (1.5-5.0); LYMPH % 15.7 % (24.0-44.0); MEAN CORPUSCULAR HGB CONC 33.6 g/dl (32.0-36.5); MEAN CORPUSCULAR VOLUME 86.2 fl (80.0-96.0); MONO # 0.7 10^3/uL (0.0-0.8); MONO % 7.3 % (2.0-8.0); NEUTROPHILS # 6.9 10^3/uL (1.5-8.5); NEUTROPHILS % 73.8 % (36.0-66.0); PLATELET COUNT, AUTOMATED 241 10^3/uL (150-450); RED BLOOD COUNT 2.97 10^6/uL (4.30-6.10); WHITE BLOOD COUNT 9.4 10^3/uL (4.0-10.0)
[2021-01-11 13:54] LABS: CALCIUM LEVEL 7.7 MG/DL (8.8-10.2); CREATININE FOR GFR 2.27 MG/DL (0.70-1.30); POTASSIUM SERUM 4.8 MEQ/L (3.5-5.1)
[2021-01-11 14:00] VITALS: BP 114/54
[2021-01-11] MEDS: NS 0.45% 1,000 ML IV SCH ×2 (14:30→22:04)
[2021-01-11 22:00] VITALS: BP 113/81
[2021-01-11] MEDS ORDERED: PERCOCET 5MG/325MG TAB PO PRN (22:20)
[2021-01-12 06:00] VITALS: BP 114/64
[2021-01-12] MEDS: ACETAMINOPHEN TAB 650MG DOSE (2X325MG) PO PRN (06:04)
[2021-01-12] MEDS: HEPARIN SOD (PORCINE) 5000UNITS/ML 1ML VIAL/SYRINGE SC SCH ×3 (06:05→21:32)
[2021-01-12 07:58] LABS: BASO % 0.2 % (0.0-1.0); EOS # 0.3 10^3/uL (0.0-0.5); EOS % 3.4 % (0.0-3.0); HEMOGLOBIN 8.4 g/dl (13.5-17.5); LYMPH # 1.4 10^3/uL (1.5-5.0); LYMPH % 13.8 % (24.0-44.0); MEAN CORPUSCULAR HEMOGLOBIN 29.1 pg (27.0-33.0); MEAN CORPUSCULAR HGB CONC 33.6 g/dl (32.0-36.5); MEAN CORPUSCULAR VOLUME 86.5 fl (80.0-96.0); MONO # 0.8 10^3/uL (0.0-0.8); NEUTROPHILS # 7.4 10^3/uL (1.5-8.5); NEUTROPHILS % 73.6 % (36.0-66.0); PLATELET COUNT, AUTOMATED 243 10^3/uL (150-450); RED BLOOD COUNT 2.89 10^6/uL (4.30-6.10); WHITE BLOOD COUNT 10.1 10^3/uL (4.0-10.0)
[2021-01-12 08:22] LABS: CREATININE FOR GFR 2.12 MG/DL (0.70-1.30); GLOMERULAR FILTRATION RATE 32.5 (>42); POTASSIUM SERUM 4.6 MEQ/L (3.5-5.1)
[2021-01-12] MEDS: LACTOBACILLUS ACIDOPHILUS CAP (BACID) PO SCH (09:51)
[2021-01-12] MEDS: ASCORBIC ACID 500 MG TAB PO SCH ×2 (09:51→21:00)
[2021-01-12] MEDS: levETIRAcetam 250MG TABLET (KEPPRA) PO SCH ×2 (09:51→21:00)
[2021-01-12] MEDS: oxyCODONE 10 MG CR TAB PO SCH ×2 (09:52→21:00)
[2021-01-12] MEDS: MEROPENEM INJ 1 GM in IV 1 EA IV SCH ×2 (12:23→21:30)
[2021-01-12 13:40] VITALS: BP 115/62
--- NOTE | 2021-01-12 17:14 | IPNPDOC ---
Subjective Date Seen The patient was seen on 01/12/21. Subjective Chief Complaint/HPI Mr. Markham is a 75 year old male who is paraplegic who is here with sepsis secondary to Klebsiella and Enterococcus UTI. Patient was seen in the morning and again in the afternoon. This morning, he had some confusion and had pulled out his IV access. Nurse was able to find another peripheral and restart IV antibiotics. This afternoon, he was A&Ox3. Patient is very vocally weak. Objective Physical Examination General Exam: Positive: Alert, Cooperative Eye Exam: Negative: Sclera icteric Chest Exam: Positive: Clear to auscultation Heart Exam: Positive: Rate Normal, Regular Rhythm Abdomen Exam: Positive: Normal bowel sounds, Soft; Negative: Tenderness Male Exam: Positive: Edema (scrotal edema) Extremity Exam: Positive: Edema Neuro Exam: Positive: Other (Very weak voice. Paraplegic) Assessment /Plan Assessment Mr. Markham is a 75 year old male who is paraplegic who is here with sepsis secondary to Klebsiella and Enterococcus UTI. Will continue treatment for the urine culture for a total of 7 days. Meropenem was started on 01/07. For a total of 7 days, the final date would be 01/13. Will discontinue antibiotics on 01/13. Otherwise, Dr. Webber and Dr. Joiner have been consulted for the wound, recommendations appreciated. Plan/VTE VTE Prophylaxis Ordered?: Yes Plan 1. Sepsis secondary to Klebsiella and Enterococcus UTI -Meropenem and Vancomycin Day 6 2. Sacral ulcer -Dr. Webber and Dr. Joiner consulted recommendations appreciated 3. ATN -Dues to sepsis and dehydration -Patient now has good urine output -Continue supportive care. Encourage oral intake 4. Hypernatremia -Secondary to poor oral intake -Encourage oral intake of fluid -IVF with D5W/0.45NS 5. Chronic pain -Continue oxycodone 6. History of seizure disorder -Continue levetiracetam 7. DVT ppx -Heparin Disposition: Complete antibiotic course tomorrow. Pending placement VS, I&O, 24H, Fishbone Vital Signs/I&O Vital Signs Date Time Temp Pulse Resp B/P (MAP) Pulse Ox O2 Delivery O2 Flow Rate FiO2 01/12/21 13:40 97.6 76 16 115/62 (79) 97 Room Air I&O- Last 24 Hours up to 6 AM 8/14/21 05:59 Intake Total 830 ml Output Total 1850 ml Balance -1020 ml Laboratory Data 24H LABS Laboratory Tests 2 01/12/21 07:46: Immature Granulocyte % (Auto) 1.0, Neutrophils (%) (Auto) 73.6H, Lymphocytes (%) (Auto) 13.8L, Monocytes (%) (Auto) 8.0, Eosinophils (%) (Auto) 3.4H, Basophils (%) (Auto) 0.2, Neutrophils # (Auto) 7.4, Lymphocytes # (Auto) 1.4L, Monocytes # (Auto) 0.8, Eosinophils # (Auto) 0.3, Basophils # (Auto) 0.0, Nucleated Red Blood Cells % (auto) 0.0, Anion Gap 8, Glomerular Filtration Rate 32.5L, Calcium Level 8.0L, Ammonia < 10, Random Vancomycin Level 20.3 CBC/BMP Laboratory Tests 01/12/21 07:46 Microbiology Microbiology 01/08/21 Gram Stain - Final, Complete 01/08/21 Wound Culture - Final, Complete E.coli Esbl Pseudomonas Aeruginosa Staph.aureus Methicillin Resis Enterococcus Faecalis Enterococcus Avium 01/07/21 Urine Culture - Final, Complete Klebsiella Pneumoniae Enterococcus Faecalis 01/06/21 Blood Culture - Final, Complete NO GROWTH AFTER 5 DAYS 01/06/21 Blood Culture - Final, Complete NO GROWTH AFTER 5 DAYS SOLOMON MELCHOR DO Jan 12, 2021 17:14
[2021-01-12] MEDS: SANTYL OINT 30GM TOP SCH (18:49)
[2021-01-12] MEDS: NS 0.45% 1,000 ML IV SCH (20:26)
[2021-01-12] MEDS ORDERED: RAMELTEON 8 MG TAB (ROZEREM) PO PRN (21:30)
[2021-01-12] MEDS ORDERED: hydrOXYzine 25 MG TAB PO PRN (21:30)
[2021-01-12] MEDS ORDERED: D5W/0.45% SODIUM CHLORIDE 1,000 ML IV SCH (21:30)
[2021-01-12 22:00] VITALS: BP 115/65
[2021-01-13] MEDS: HEPARIN SOD (PORCINE) 5000UNITS/ML 1ML VIAL/SYRINGE SC SCH (05:04)
[2021-01-13] MEDS ORDERED: OLANZapine INTRAMUSCULAR 10MG VIAL IM PRN (05:50)
[2021-01-13 07:44] LABS: VENOUS BASE EXCESS -6.4 (-2.0-2.0); VENOUS HCO3 19.2 MEQ/L (23.0-27.0); VENOUS O2 SATURATION 96.3 % (60.0-80.0); VENOUS PARTIAL PRESSURE CO2 38.4 mmHg (38.0-50.0); VENOUS PARTIAL PRESSURE O2 91.8 mmHg (30.0-50.0); VENOUS PH 7.316 UNITS (7.330-7.430); VENOUS STANDARD HCO3 19.1 MEQ/L; VENOUS TOTAL CO2 20.3 MEQ/L (24.0-28.0)
[2021-01-13 07:49] LABS: BASO % 0.2 % (0.0-1.0); EOS # 0.1 10^3/uL (0.0-0.5); HEMATOCRIT 23.2 % (42.0-52.0); HEMOGLOBIN 7.7 g/dl (13.5-17.5); LYMPH # 1.5 10^3/uL (1.5-5.0); LYMPH % 13.4 % (24.0-44.0); MEAN CORPUSCULAR HEMOGLOBIN 29.5 pg (27.0-33.0); MEAN CORPUSCULAR HGB CONC 33.2 g/dl (32.0-36.5); MEAN CORPUSCULAR VOLUME 88.9 fl (80.0-96.0); MONO # 0.7 10^3/uL (0.0-0.8); MONO % 6.2 % (2.0-8.0); NEUTROPHILS # 8.7 10^3/uL (1.5-8.5); NEUTROPHILS % 77.8 % (36.0-66.0); PLATELET COUNT, AUTOMATED 300 10^3/uL (150-450); RED BLOOD COUNT 2.61 10^6/uL (4.30-6.10); WHITE BLOOD COUNT 11.2 10^3/uL (4.0-10.0)
[2021-01-13 08:15] LABS: CALCIUM LEVEL 7.9 MG/DL (8.8-10.2); CREATININE FOR GFR 2.02 MG/DL (0.70-1.30); GLOMERULAR FILTRATION RATE 34.4 (>42); POTASSIUM SERUM 5.1 MEQ/L (3.5-5.1); VANCOMYCIN RANDOM 16.5 UG/ML
[2021-01-13] MEDS: SANTYL OINT 30GM TOP SCH (09:00)
[2021-01-13] MEDS: LACTOBACILLUS ACIDOPHILUS CAP (BACID) PO SCH (10:29)
[2021-01-13] MEDS: levETIRAcetam 250MG TABLET (KEPPRA) PO SCH (10:29)
[2021-01-13] MEDS: ASCORBIC ACID 500 MG TAB PO SCH (10:30)
[2021-01-13] MEDS: oxyCODONE 10 MG CR TAB PO SCH ×2 (10:30→21:49)
[2021-01-13] MEDS ORDERED: NS 1,000 ML IV SCH (11:05)
[2021-01-13] MEDS ORDERED: VANCOMYCIN HCL 750 MG, VIAL MATE ADAPTER 1 EACH in NS 250 ML IV ONE (12:00)
[2021-01-13] MEDS ORDERED: ONDANSETRON 4 MG ORAL DISINTEGRATING TAB PO PRN ×2 (12:55)
[2021-01-13] MEDS ORDERED: MORPHINE 10MG/0.5ML ORAL CONCENTRATE SOLUTION U/D SL PRN (12:55)
[2021-01-13] MEDS ORDERED: LORazepam 1 MG TAB PO PRN (12:55)
[2021-01-13] MEDS ORDERED: SCOPOLAMINE 1MG TRANSDERMAL PATCH TOP PRN (12:55)
--- NOTE | 2021-01-13 13:23 | IPNPDOC ---
Subjective Date Seen The patient was seen on 01/13/21. Subjective Chief Complaint/HPI Mr. Markham is a 75 year old male who is paraplegic who is here with sepsis secondary to Klebsiella and Enterococcus UTI. Last night, patient became agitated and pulled out his IV again. This morning, he looked pale and ill. His H&H has been slowly dropping. Looking at his colostomy bag, stool was dark and tarry and it tested positive for occult blood. Heparin was discontinued. Ordered for 2u of pRBC. Patient refused blood draw. I spoke with patient and let him know we will need to get another IV and to draw labs to know which blood to give you. He did not want to get poked again. I explain, then the alternative would be to make you comfortable. We will stop drawing blood, stopped poking you, and let you be comfortable. I said you will , but you will be comfortable when you . He told me he wanted to be comfortable. I called patient's health care proxy, Shruthi El (daughter). I let her know that he wanted to be comfortable and not be poked again. I explained that I suspect a major cause to his problem is his poor oral intake. He is not getting enough nutrients to heal his wound or to produce RBCs. The other problem was that even if we gave the blood, we would need to stop the source of bleeding. It seems like it is UGI due to the dark and tarry stool. She said he has a history of GI bleed. I do not know if he would be able to survive an EGD given how ill he looked. I explained we will abide by the patient's wish and that family may see him. HCP understands. Objective Physical Examination General Exam: Positive: Alert, Cooperative Eye Exam: Negative: Sclera icteric Chest Exam: Positive: Clear to auscultation Heart Exam: Positive: Tachycardic, Regular Rhythm Abdomen Exam: Positive: Normal bowel sounds, Other (Melana in the ostomy bag) Male Exam: Positive: Edema (scrotal edema) Extremity Exam: Positive: Edema Neuro Exam: Positive: Other (Very weak voice. Paraplegic) Psych Exam: Positive: Mental status NL, Mood NL Assessment /Plan Assessment Mr. Markham is a 75 year old male who is paraplegic who is here with sepsis secondary to Klebsiella and Enterococcus UTI. Patient has poor oral intake and has not been eating much. His sodium continues to rise and I suspect it is due to dehydration. Patient also has acute blood loss anemia most likely upper GI bleed given his melena. Spoke with patient about lab draws and IV, but patient did not want to get poked again. I said the alternative is to make you comfortable and let you pass away peacefully. Patient wanted to be comfortable. 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 Sepsis secondary to Klebsiella and Enterococcus UTI 2. Sacral ulcer 3. ATN 4. Hypernatremia 5. Acute blood loss anemia, suspect upper GI bleed 6. History of seizure disorder 7. Chronic pain Disposition: Patient requests to be comfortable. He does not want to be poked again for labs or for blood. 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 I have notified the patient's HCP. VS, I&O, 24H, Fishbone Vital Signs/I&O Vital Signs Date Time Temp Pulse Resp B/P (MAP) Pulse Ox O2 Delivery O2 Flow Rate FiO2 01/13/21 10:30 16 01/12/21 22:00 99.6 102 115/65 (82) 98 Room Air I&O- Last 24 Hours up to 6 AM 01/13/21 05:59 Intake Total 865 ml Output Total 1850 ml Balance -985 ml Laboratory Data 24H LABS Laboratory Tests 2 01/13/21 07:38: Immature Granulocyte % (Auto) 1.4, Neutrophils (%) (Auto) 77.8H, Lymphocytes (%) (Auto) 13.4L, Monocytes (%) (Auto) 6.2, Eosinophils (%) (Auto) 1.0, Basophils (%) (Auto) 0.2, Neutrophils # (Auto) 8.7H, Lymphocytes # (Auto) 1.5, Monocytes # (Auto) 0.7, Eosinophils # (Auto) 0.1, Basophils # (Auto) 0.0, Nucleated Red Blood Cells % (auto) 0.0, Blood Gas Puncture Site UNKNOWN, Blood Gas Bicarbonate Standard 19.1, Venous Blood pH 7.316L, Venous Blood Partial Pressure CO2 38.4, Venous Blood Partial Pressure O2 91.8H, Venous Blood Total Carbon Dioxide 20.3L, Venous Blood HCO3 19.2L, Venous Blood Oxygen Saturation 96.3H, Venous Blood Base Excess -6.4L, Anion Gap 7L, Glomerular Filtration Rate 34.4L, Calcium Level 7.9L, BJ-Iib-G-Type Natriuretic Peptide 3738H, Random Vancomycin Level 16.5 CBC/BMP Laboratory Tests 01/13/21 07:38 Microbiology Microbiology 01/13/21 Stool Occult Blood (ALEJANDRINA) - Final, Complete 01/08/21 Gram Stain - Final, Complete 01/08/21 Wound Culture - Final, Complete E.coli Esbl Pseudomonas Aeruginosa Staph.aureus Methicillin Resis Enterococcus Faecalis Enterococcus Avium 01/07/21 Urine Culture - Final, Complete Klebsiella Pneumoniae Enterococcus Faecalis 01/06/21 Blood Culture - Final, Complete NO GROWTH AFTER 5 DAYS 01/06/21 Blood Culture - Final, Complete NO GROWTH AFTER 5 DAYS SOLOMON MELCHOR DO Jan 13, 2021 13:23
[2021-01-13] MEDS: LORazepam 1 MG TAB PO PRN (15:47)
[2021-01-13] MEDS: MORPHINE 10MG/0.5ML ORAL CONCENTRATE SOLUTION U/D SL PRN (16:26)
[2021-01-13] MEDS ORDERED: QUEtiapine FUMARATE 25 MG TAB PO SCH (21:00)
[2021-01-14] MEDS: LORazepam 1 MG TAB PO PRN ×3 (08:25→21:49)
[2021-01-14] MEDS: oxyCODONE 10 MG CR TAB PO SCH ×2 (08:25→20:58)
[2021-01-14] MEDS: MORPHINE 10MG/0.5ML ORAL CONCENTRATE SOLUTION U/D SL PRN ×2 (14:49→22:56)
[2021-01-15] MEDS: oxyCODONE 10 MG CR TAB PO SCH ×2 (08:59→21:00)
[2021-01-15] MEDS: MORPHINE 10MG/0.5ML ORAL CONCENTRATE SOLUTION U/D SL PRN (09:20)
[2021-01-15] MEDS: LORazepam 1 MG TAB PO PRN (09:20)
[2021-01-16] MEDS: MORPHINE 10MG/0.5ML ORAL CONCENTRATE SOLUTION U/D SL PRN ×3 (01:16→17:30)
[2021-01-16] MEDS: oxyCODONE 10 MG CR TAB PO SCH ×2 (08:50→21:00)
[2021-01-17] MEDS: LORazepam 1 MG TAB PO PRN (08:48)
[2021-01-17] MEDS: oxyCODONE 10 MG CR TAB PO SCH ×2 (08:48→21:00)
[2021-01-17] MEDS: SCOPOLAMINE 1MG TRANSDERMAL PATCH TOP PRN (08:49)
[2021-01-17] MEDS: MORPHINE 10MG/0.5ML ORAL CONCENTRATE SOLUTION U/D SL PRN ×2 (10:22→16:16)
[2021-01-18] MEDS: oxyCODONE 10 MG CR TAB PO SCH ×2 (07:40→21:00)
[2021-01-18] MEDS: LORazepam 1 MG TAB PO PRN ×3 (07:40→16:40)
[2021-01-18] MEDS: MORPHINE 10MG/0.5ML ORAL CONCENTRATE SOLUTION U/D SL PRN ×2 (18:37→22:53)
[2021-01-19] MEDS: oxyCODONE 10 MG CR TAB PO SCH ×2 (08:03→21:00)
[2021-01-20] MEDS: oxyCODONE 10 MG CR TAB PO SCH ×2 (08:47→21:00)
[2021-01-20] MEDS: MORPHINE 10MG/0.5ML ORAL CONCENTRATE SOLUTION U/D SL PRN ×2 (17:09→23:35)
[2021-01-20] MEDS: SCOPOLAMINE 1MG TRANSDERMAL PATCH TOP PRN (23:39)
--- NOTE | 2021-01-21 20:07 | DS.PDOC ---
Discharge Summary General Date of Admission Jan 06, 2021 at 20:39 Date of Discharge 01/21/21 Attending Physician: DOYLE SANCHEZ DO Specialist/Consultants Involve: Casey Webber MD Discharge Summary PROCEDURES PERFORMED DURING STAY: PICC line insertion ADMITTING/DISCHARGE DIAGNOSES: 1. Sepsis secondary to Klebsiella and Enterococcus UTI 2. Sacral ulcer 3. ATN 4. Hypernatremia 5. Acute blood loss anemia, suspect upper GI bleed 6. History of seizure disorder 7. Chronic pain COMPLICATIONS/CHIEF COMPLAINT: HISTORY OF PRESENT ILLNESS/HOSPITAL COURSE: Mr. Markham is a 75 year old paraplegic male who was admitted for sepsis 2/2 sacral ulcer and UTI secondary to Klebsiella and Enterococcus. He also was found to be in acute renal failure on admission that was ultimately progressed to ATN. Plastic surgery and wound care were consulted for his sacral wounds as necrotic tissue was found and required chemical debridement. Ultimately his initial sepsis essentially resolved with successful antibiotic treatments (Vanc, madison, rocephin). His ATN also continued to improve throughout his stay however his hgb had been slowly downtrending. On hospital stay day 7 he was reported to have ripped out his IV overnight and it was noted that the stool in his colostomy bag was black and tarry. 2 U PRBC was ordered however patient refused further blood draw and did not wish to be poked anymore, wished to be comfortable, and wanted no further interventions. Attending physician spoke and confirmed this with HCP. 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 DISCHARGE MEDICATIONS: Please see below. ALLERGIES: Please see below. LABORATORY DATA: Please see below. IMAGIN01/06/21 CXR: "IMPRESSION: Essentially negative portable chest" 01/06/21 CT abd/pelvis: "IMPRESSION: There is no ascites or pneumoperitoneum. There is no bowel distention or obstruction. Patient has a known decubitus ulcer over the sacrum. This is again identified. There is a vena cava filter, unchanged. There is a Rowley catheter, unchanged. There is a diverting colostomy in the mid transverse colon, unchanged. There is no bowel distention or obstruction. There are calcifications in soft tissue edema lateral to the left hip greater trochanter, possibly from recent trauma, not present previously. There is no left femoral neck fracture left femoral head dislocation. There is internal fixation of the right hip, as previously. There are no associated lytic, blastic or destructive skeletal changes." 01/06/21 Bilateral LE Vascular U/S: "IMPRESSION: Limited exam due to patient's body habitus. Within limitations of the exam, no DVT seen in the right or left common femoral veins through the popliteal veins. Infrapopliteal veins were not visualized. Bilateral calves subcutaneous edema seen." 01/06/21 Renal U/S: "IMPRESSION: Limited exam due to patient's body habitus and immobility. Within limitations of the exam no gross sonographic evidence of right or left renal abnormality noted." DISCHARGE PLAN: Discharge to [facility] TIME SPENT ON DISCHARGE: 21 minutes. Vital Signs/I&Os Vital Signs Date Time Temp Pulse Resp B/P (MAP) Pulse Ox O2 Delivery O2 Flow Rate FiO2 01/20/21 17:09 14 01/19/21 21:00 Room Air I&O- Last 24 Hours up to 6 AM 01/21/21 06:00 Intake Total 0 ml Output Total 950 ml Balance -950 ml Microbiology Microbiology 01/13/21 Stool Occult Blood (ALEJANDRINA) - Final, Complete Discharge Medications Scheduled Ascorbic Acid (Vitamin C) 500 Mg Tablet, 500 MG PO BID, (Reported) Levetiracetam (Levetiracetam) 750 Mg Tablet, 750 MG PO DAILY, (Reported) Levetiracetam (Keppra) 1,000 Mg Tablet, 1,000 MG PO QHS, (Reported) Oxycodone HCl (Oxycodone HCl ER) 10 Mg Tab.er.12h, 10 MG PO Q12H, (Reported) Miscellaneous Medications [Patient Comment] , (Reported) UNABLE TO VERIFY MEDICATIONS WITH PATIENT OR FAMILY, MED LIST OBTAINED FROM [facility] WHERE PT WAS DISCHARGE ON THURSDAY. DAUGHTER STATES PATIENT DID HAVE 3 PILL BOTTLES AT HOME, PREGABALIN 150MG, GABAPENTIN 600MG, AND UNK 3RD MED. THESE MEDICATONS WERE NOT BEING ADMINISTERED AT [facility] AND HAS NOT FILLED THESE MEDICATIONS SINCE JULY Allergies Coded Allergies: linezolid (Verified Allergy, Unknown, 04/23/19) GME ATTESTATION GME ATTESTATION My faculty preceptor for this patient encounter was physically present during t he encounter and was fully available. All aspects of the patient interview, examination, medical decision making process, and medical care plan development were reviewed and approved by the faculty preceptor. The faculty preceptor is aware and concurs with the plan as stated in the body of this note and will attest to such by his/her cosignature. SAM ROMERO DO Jan 21, 2021 20:07
== END 2021-01-21 02:27 | disposition expired | DRG 871 ==
LOC: M ED 12:17 → EDBD 12:17 → EEVIPCON 20:39 → M ED INP 20:39 → ENRESERV 01-07 06:39 → M PCU 01-07 09:08 → M MS5PR 01-10 18:00
PROVIDERS: ADMIT Family Medicine; ATTEND Neuromusculoskeletal Medicine & OMM
PROC: 02HV33Z Insertion of Infusion Device into Superior Vena Cava, Percutaneous Approach (ICD-10-PCS; principal; 2021-01-08 12:00)
DX: A41.81 Sepsis due to Enterococcus (principal); L89.154 Pressure ulcer of sacral region, stage 4; N39.0 Urinary tract infection, site not specified; E87.0 Hyperosmolality and hypernatremia; D62 Acute posthemorrhagic anemia; K92.2 Gastrointestinal hemorrhage, unspecified; N17.9 Acute kidney failure, unspecified; G40.909 Epilepsy, unspecified, not intractable, without status epilepticus; R29.6 Repeated falls; Z93.3 Colostomy status; E87.5 Hyperkalemia; G62.9 Polyneuropathy, unspecified; E86.0 Dehydration